=== PATIENT | male | born 1955 | race American Indian/Alaskan Native ===

== ENCOUNTER 2017-10-29 20:41 | Inpatient (IN) | payer OTHER ==
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
[2017-10-29] MEDS ORDERED: ZOFRAN IV ONE (21:53)
[2017-10-29 21:57] LABS: Bacteria,Urine 2+ /HPF (Negative); Bilirubin,Urine NEG (Negative); Blood,Urine NEG (Negative); Color,Urine Amber (Yellow); Mucus,Urine 1+ /HPF; Nitrite,Urine NEG (Negative)
[2017-10-29 22:06] LABS: Alanine Aminotransferase 18 units/L (7-56); Albumin 3.8 g/dL (3.9-5); BUN/Creatinine Ratio 29; Blood Urea Nitrogen 29 mg/dL (9-20); Calcium 9.8 mg/dL (8.4-10.2); Hemolysis Index 30
[2017-10-29 22:09] LABS: Hematocrit 42.2 % (35.5-45.6); Hemoglobin 13.9 gm/dl (11.8-15.2); Mean Corpuscular HGB Conc 33 % (32-34); Mean Corpuscular Hemoglobin 33 pg (28-32); Mean Corpuscular Volume 100 fl (84-94); Red Blood Count 4.23 M/mm3 (3.65-5.03); Red Cell Distribution Width 13.8 % (13.2-15.2)
[2017-10-29 22:14] LABS: Platelet Count 335 K/mm3 (140-440)
[2017-10-29 22:31] LABS: Free T4 (Free Thyroxine) 0.7 ng/dL (0.76-1.46)
[2017-10-29] MEDS ORDERED: LEVAQUIN 500MG/100ML 500 MG/100 ML BAG IV ONE (22:44)
[2017-10-29 22:46] LABS: Basophils % (Manual) 0 % (0.0-1.8); Myelocytes # (Manual) 0.2 K/mm3; Total Cells Counted 100
[2017-10-29 22:47] LABS: Anisocytosis 1+; Large Platelets Few; Platelet Estimate Consistent w Auto; Poikilocytosis 1+
--- NOTE | 2017-10-30 02:01 | Cat Scan Report ---
FINAL REPORT EXAM: CT ABDOMEN PELVIS W CON HISTORY: abdominal distention, nausea vomiting COMPARISON: Plain films of the abdomen from July 2015. TECHNIQUE: Contiguous axial images were obtained. Additional sagittal and coronal reformatted images were obtained. Administration of IV contrast given per institution protocol. Images submitted for interpretation. 100 cc Omnipaque 350. FINDINGS: Large amount of stool within the right colon and rectosigmoid colon. There is diffuse dilatation of the colon. Rectosigmoid colon measures 7 centimeters in diameter. Ascending colon measures 8.7 centimeters in diameter in the transverse colon 7 centimeters in diameter. No pneumatosis or free air. Mild wall thickening the rectosigmoid colon which may be reactive secondary to large amount of stool. Mild infectious or inflammatory colitis in that region is not excluded. Appears to be adherent stool along the margin of the lumen of the ascending colon (series 3, image 115). Polypoid mass not excluded by CT. Small-bowel loops are relatively decompressed. No pneumatosis or free air. Gastrostomy tube is in place. Balloon tip is present within the stomach lumen. Nonspecific linear densities at the lung bases concerning for atelectasis. Benign cyst left hepatic lobe measuring 1.1 centimeters. There additional low-attenuation subcentimeter lesions in the liver. These are too small to accurately characterize by CT, but may reflects cysts. Cholelithiasis. No gross inflammatory changes the gallbladder. Spleen is unremarkable. Calcification within the pancreatic head compatible sequelae of chronic pancreatitis. No peripancreatic stranding or fluid. No adrenal mass. No solid renal lesion or hydronephrosis. Bilobed left renal cyst measuring 6.3 x 3.2 centimeters in axial dimension. Aorta and IVC normal in caliber. Moderate severe calcified plaque along the aorta. Barnes catheter decompresses the urinary bladder. Diffuse wall thickening the urinary bladder which may be accentuated by decompressed state. Mild enlargement of prostate gland measuring 4.7 x 6.0 centimeters in axial dimension. No free fluid lymphadenopathy in the pelvic cavity. Appendix is not visualized. However, there is no pericecal stranding or fluid to suggest acute inflammation. Mild moderate degenerative changes of the lumbar spine. Bony pelvis is grossly intact. IMPRESSION: Diffuse distention of the colon. This is of uncertain chronicity. This may be on a chronic functional basis. Colonic ileus could have a similar appearance. No obstructive lesion identified along the course of the colon. There is a large amount of stool within sections of the colon. There is mild wall thickening the rectosigmoid colon which may be reactive secondary to large amount of stool in that region. Infectious or inflammatory colitis in that region is not excluded. No pneumatosis or free air. Changes of chronic pancreatitis with multiple parenchymal calcifications at the pancreatic head. No fat stranding or fluid to suggest acute inflammation of the pancreas on today's exam. Mild enlargement of prostate gland. Wall thickening the urinary bladder which may relate to its decompressed state. Correlation with urinalysis suggested to ensure no active cystitis.
[2017-10-30] MEDS ORDERED: ZOFRAN IV PRN (03:25)
[2017-10-30] MEDS ORDERED: TYLENOL PO PRN (03:25)
[2017-10-30] MEDS ORDERED: DepaCON 500 MG in NACL 0.9% 100 ML IV ONE (05:00)
[2017-10-30] MEDS ORDERED: VALPROIC ACID NGTUBE SCH (05:00)
--- NOTE | 2017-10-30 05:06 | History and Physical Report ---
History of Present Illness Date of examination: 10/30/17 Date of admission: 10/30/17 03:25 History of present illness: This is a 62-year-old man with history of hypothyroidism, diabetes, seizure, renal failure was discharged from the hospital on October 26. He returned today because his abdomen is more distended than it was when he was in the hospital. History is per the daughter at bedside, patient is unable to give a history. She also stated that he has not had a bowel movement since discharge In reviewing systems unobtainable. PAST MEDICAL HISTORY:hypothyroidism, diabetes, seizure, renal failure PAST SURGICAL HISTORY: None FAMILY HISTORY: Hypertension SOCIAL HISTORY: No alcohol, tobacco, drugs Medications and Allergies Allergies Allergy/AdvReac Type Severity Reaction Status Date / Time No Known Allergies Allergy Verified 10/18/17 18:55 Home Medications Medication Instructions Recorded Confirmed Last Taken Type Baclofen [Lioresal] 5 mg PO TID 10/18/17 10/18/17 Unknown History Levothyroxine [Synthroid] 200 mcg NGTUBE QAM 10/18/17 10/29/17 Unknown History Liothyronine Sodium [Cytomel] 5 mcg NGTUBE QAM 10/18/17 10/29/17 Unknown History OXcarbazepine [Trileptal] 900 mg NGTUBE BID 10/18/17 10/29/17 Unknown History Valproic Acid (As Sodium Salt) 20 ml NGTUBE Q12H 10/18/17 10/29/17 Unknown History [Depakene] amLODIPine [Norvasc] 10 mg NGTUBE DAILY 10/18/17 10/29/17 Unknown History levETIRAcetam [Keppra TAB] 1,000 mg NGTUBE BID 10/18/17 10/29/17 Unknown History Insulin Aspart [Novolog Flexpen] See Protocol SQ Q6H 30 Days 10/26/17 Unknown Rx insuln.pen Insulin NPH/Regular [Novolin 70/30] 18 unit SQ BIDDIAB 30 Days ml 10/26/1702/08 Unknown Rx hydrALAZINE [Apresoline TAB] 25 mg PO Q8HR #90 tablet 10/26/17 10/29/17 Unknown Rx Active Meds: Active Medications Acetaminophen (Tylenol) 650 mg PO Q4H PRN PRN Reason: Pain MILD(1-3)/Fever >100.5/MARQUEZ Levetiracetam (Keppra 1,000 Mg/Ns 0.75% 100ml) 1,000 mg in 100 mls @ 400 mls/ hr IV Q12HR [facility] Levothyroxine Sodium (Synthroid) 200 mcg FEEDTUBE DAILY@0600 [facility] Miscellaneous Medication (Valproic Acid (As Sodium Salt) [Depakene]) 20 ml NGTUBE Q12H [facility] Ondansetron HCl (Zofran) 4 mg IV Q8H PRN PRN Reason: N/V unrelieved by Reglan Oxcarbazepine (Trileptal) 900 mg PO BID PRISCA Exam - Physical Exam Narrative exam: Gen. appearance: Patient lying in bed in no acute distress HEENT: Normocephalic/atraumatic, pupils equal round reactive to light, extra occular movement intact, no scleral icterus, no JVD or thyromegaly or nodule, neck is supple, mucous membrane moist, no erythema or exudate Heart: S1-S2, regular rate and rhythm Lungs: Clear to auscultation bilateral breathing comfortable Abdomen: Significant decrease bowel sounds, nontender, +distended Extremities: No edema, cyanosis, clubbing Neuro:: Difficult to assess Skin: No rash, nodules, warm dry - Constitutional Vitals: Temp Pulse Resp BP Pulse Ox 98.6 F 106 H 22 138/87 97 10/29/17 21:07 10/30/17 04:30 10/30/17 04:30 10/30/17 04:30 10/30/17 04:30 Results - Labs CBC & Chem 7: 10/29/17 21:25 10/29/17 21:25 Labs: Abnormal lab results 10/29/17 10/29/17 10/29/17 Range/Units 21:25 21:25 21:25 MCV 100 H (84-94) fl MCH 33 H (28-32) pg Seg Neuts % (Manual) 74.0 H (40.0-70.0) % Lymphocytes % (Manual) 9.0 L (13.4-35.0) % Monocytes % (Manual) 12.0 H (0.0-7.3) % Lymphocytes # (Manual) 0.8 L (1.2-5.4) K/mm3 Monocytes # (Manual) 1.0 H (0.0-0.8) K/mm3 Sodium 134 L (137-145) mmol/L Chloride 92.5 L (98-107) mmol/L BUN 29 H (9-20) mg/dL Glucose 329 H (75-100) mg/dL Alkaline Phosphatase 143 H (35-129) units/L Albumin 3.8 L (3.9-5) g/dL TSH (0.270-4.200) mlU/mL Free T4 (0.76-1.46) ng/dL Ur Specific [place] (1.003-1.030) Urine WBC (Auto) (0.0-6.0) /HPF Valproic Acid 47.7 L (50-100) ug/mL 10/29/17 10/29/17 Range/Units 21:25 21:28 MCV (84-94) fl MCH (28-32) pg Seg Neuts % (Manual) (40.0-70.0) % Lymphocytes % (Manual) (13.4-35.0) % Monocytes % (Manual) (0.0-7.3) % Lymphocytes # (Manual) (1.2-5.4) K/mm3 Monocytes # (Manual) (0.0-0.8) K/mm3 Sodium (137-145) mmol/L Chloride (98-107) mmol/L BUN (9-20) mg/dL Glucose (75-100) mg/dL Alkaline Phosphatase (35-129) units/L Albumin (3.9-5) g/dL TSH 41.620 H (0.270-4.200) mlU/mL Free T4 0.70 L (0.76-1.46) ng/dL Ur Specific [place] 1.031 H (1.003-1.030) Urine WBC (Auto) 38.0 H (0.0-6.0) /HPF Valproic Acid (50-100) ug/mL - Imaging and Cardiology CT scan - abdomen: report reviewed CT scan - pelvis: report reviewed Assessment and Plan Assessment Profound Colonic distention Rectosigmoid inflammation Diabetes type 2 Seizure Hypothyroidism Plan admit to medicine Place NG tube, consult surgery Start IV fluids, IV Flagyl and Levaquin Check fingersticks and initiate insulin sliding scale Continue appropriate outpatient medication DVT prophylaxis
[2017-10-30] MEDS ORDERED: FLAGYL 500 MG/100 ML 500 MG/100 ML BAG IV ONE (05:16)
[2017-10-30] MEDS: FLAGYL 500 MG/100 ML 500 MG/100 ML BAG IV SCH ×3 (05:26→21:09)
[2017-10-30] MEDS: SYNTHROID FEEDTUBE SCH (05:56)
[2017-10-30] MEDS: TRILEPTAL PO SCH ×2 (10:00→21:16)
[2017-10-30] MEDS ORDERED: LEVOTHYROXINE 200 MCG NGTUBE SCH (10:00)
[2017-10-30] MEDS: KEPPRA 1,000 MG/NS 0.75% 100ML 1,000 MG/100 ML BAG IV SCH ×2 (10:03→21:09)
[2017-10-30] MEDS: DepaKENE Liq FEEDTUBE SCH ×2 (10:03→21:15)
[2017-10-30] MEDS: LEVAQUIN 750MG/150ML 750 MG/150 ML BAG IV SCH (10:58)
--- NOTE | 2017-10-30 11:16 | Progress Note ---
Assessment and Plan Assessment and plan: Colon distention/rectosigmoid inflammation. Surgical and GI consultation. Continue IV fluid hydration and NG tube. Continue empiric antibiotics of Flagyl and Levaquin. Diabetes mellitus type 2. Continue Accu-Cheks and sliding scale insulin. Seizure disorder. Continue medications. Changed Keppra to IV given the nothing by mouth status Hypertension. Change the hydralazine to IV. Given the nothing by mouth status Hypothyroidism. TSH is 41.6. History Interval history: Patient is somnolent. Hospitalist Physical - Constitutional Vitals: Temp Pulse Resp BP Pulse Ox 97.6 F 104 H 22 176/92 95 10/30/17 08:00 10/30/17 08:35 10/30/17 07:20 10/30/17 07:20 10/30/17 08:35 General appearance: Present: no acute distress, well-nourished - EENT Eyes: Present: PERRL, EOM intact ENT: hearing intact, clear oral mucosa, dentition normal - Neck Neck: Present: supple, normal ROM - Respiratory Respiratory effort: normal Respiratory: bilateral: CTA - Cardiovascular Rhythm: regular Heart Sounds: Present: S1 & S2. Absent: gallop, rub - Extremities Extremities: no ischemia, No edema, Full ROM - Abdominal General gastrointestinal: soft, non-tender, distended, normal bowel sounds - Integumentary Integumentary: Present: clear, warm, dry - Neurologic Neurologic: CNII-XII intact, moves all extremities Results - Labs CBC & Chem 7: 10/29/17 21:25 10/29/17 21:25 Labs: Laboratory Last Values WBC 8.7 K/mm3 (4.5-11.0) 10/29/17 21:25 RBC 4.23 M/mm3 (3.65-5.03) 10/29/17 21:25 Hgb 13.9 gm/dl (11.8-15.2) 10/29/17 21:25 Hct 42.2 % (35.5-45.6) 10/29/17 21:25 MCV 100 fl (84-94) H 10/29/17 21:25 MCH 33 pg (28-32) H 10/29/17 21:25 MCHC 33 % (32-34) 10/29/17 21:25 RDW 13.8 % (13.2-15.2) 10/29/17 21:25 Plt Count 335 K/mm3 (140-440) 10/29/17 21:25 [place] % (Auto) Principal Electrical Engineer 10/29/17 21:25 Add Manual Diff Complete 10/29/17 21:25 Total Counted 100 10/29/17 21:25 Seg Neuts % (Manual) 74.0 % (40.0-70.0) H 10/29/17 21:25 Band Neutrophils % 0 % 10/29/17 21:25 Lymphocytes % (Manual) 9.0 % (13.4-35.0) L 10/29/17 21:25 Reactive Lymphs % (Man) 0 % 10/29/17 21:25 Monocytes % (Manual) 12.0 % (0.0-7.3) H 10/29/17 21:25 Eosinophils % (Manual) 3.0 % (0.0-4.3) 10/29/17 21:25 Basophils % (Manual) 0 % (0.0-1.8) 10/29/17 21:25 Metamyelocytes % 0 % 10/29/17 21:25 Myelocytes % 2.0 % 10/29/17 21:25 Promyelocytes % 0 % 10/29/17 21:25 Blast Cells % 0 % 10/29/17 21:25 Nucleated RBC % Not Reportable 10/29/17 21:25 Seg Neutrophils # Man 6.4 K/mm3 (1.8-7.7) 10/29/17 21:25 Band Neutrophils # 0.0 K/mm3 10/29/17 21:25 Lymphocytes # (Manual) 0.8 K/mm3 (1.2-5.4) L 10/29/17 21:25 Abs React Lymphs (Man) 0.0 K/mm3 10/29/17 21:25 Monocytes # (Manual) 1.0 K/mm3 (0.0-0.8) H 10/29/17 21:25 Eosinophils # (Manual) 0.3 K/mm3 (0.0-0.4) 10/29/17 21:25 Basophils # (Manual) 0.0 K/mm3 (0.0-0.1) 10/29/17 21:25 Metamyelocytes # 0.0 K/mm3 10/29/17 21:25 Myelocytes # 0.2 K/mm3 10/29/17 21:25 Promyelocytes # 0.0 K/mm3 10/29/17 21:25 Blast Cells # 0.0 K/mm3 10/29/17 21:25 WBC Morphology Not Reportable 10/29/17 21:25 Hypersegmented Neuts Not Reportable 10/29/17 21:25 Hyposegmented Neuts Not Reportable 10/29/17 21:25 Hypogranular Neuts Not Reportable 10/29/17 21:25 Smudge Cells Not Reportable 10/29/17 21:25 Toxic Granulation Not Reportable 10/29/17 21:25 Toxic Vacuolation Not Reportable 10/29/17 21:25 Dohle Bodies Not Reportable 10/29/17 21:25 Pelger-Huet Anomaly Not Reportable 10/29/17 21:25 Kaitlyn Rods Not Reportable 10/29/17 21:25 Platelet Estimate Consistent w auto 10/29/17 21:25 Clumped Platelets Not Reportable 10/29/17 21:25 Plt Clumps, EDTA Not Reportable 10/29/17 21:25 Large Platelets Few 10/29/17 21:25 Giant Platelets Not Reportable 10/29/17 21:25 Platelet Satelliting Not Reportable 10/29/17 21:25 Plt Morphology Comment Not Reportable 10/29/17 21:25 RBC Morphology Not Reportable 10/29/17 21:25 Dimorphic RBCs Not Reportable 10/29/17 21:25 Polychromasia Not Reportable 10/29/17 21:25 Hypochromasia Not Reportable 10/29/17 21:25 Poikilocytosis 1+ 10/29/17 21:25 Anisocytosis 1+ 10/29/17 21:25 Microcytosis Not Reportable 10/29/17 21:25 Macrocytosis Not Reportable 10/29/17 21:25 Spherocytes Not Reportable 10/29/17 21:25 Pappenheimer Bodies Not Reportable 10/29/17 21:25 Sickle Cells Not Reportable 10/29/17 21:25 Target Cells Not Reportable 10/29/17 21:25 Tear Drop Cells Not Reportable 10/29/17 21:25 Ovalocytes Not Reportable 10/29/17 21:25 Helmet Cells Not Reportable 10/29/17 21:25 [place] Bodies Not Reportable 10/29/17 21:25 [place] Rings Not Reportable 10/29/17 21:25 Am[place]on Cells Not Reportable 10/29/17 21:25 Bite Cells Not Reportable 10/29/17 21:25 Crenated Cell Not Reportable 10/29/17 21:25 Elliptocytes Not Reportable 10/29/17 21:25 Acanthocytes (Spur) Not Reportable 10/29/17 21:25 Rouleaux Not Reportable 10/29/17 21:25 Hemoglobin C Crystals Not Reportable 10/29/17 21:25 Schistocytes Not Reportable 10/29/17 21:25 Malaria parasites Not Reportable 10/29/17 21:25 Dionisio Bodies Not Reportable 10/29/17 21:25 Hem Pathologist Commnt No 10/29/17 21:25 Sodium 134 mmol/L (137-145) L 10/29/17 21:25 Potassium 4.9 mmol/L (3.6-5.0) 10/29/17 21:25 Chloride 92.5 mmol/L (98-107) L 10/29/17 21:25 Carbon Dioxide 22 mmol/L (22-30) 10/29/17 21:25 Anion Gap 24 mmol/L 10/29/17 21:25 BUN 29 mg/dL (9-20) H 10/29/17 21:25 Creatinine 1.0 mg/dL (0.8-1.5) 10/29/17 21:25 Estimated GFR > 60 ml/min 10/29/17 21:25 BUN/Creatinine Ratio 29 % 10/29/17 21:25 Glucose 329 mg/dL (75-100) H 10/29/17 21:25 POC Glucose 313 (70-105) H 10/30/17 08:44 Calcium 9.8 mg/dL (8.4-10.2) 10/29/17 21:25 Total Bilirubin 0.20 mg/dL (0.1-1.2) 10/29/17 21:25 AST 18 units/L (5-40) 10/29/17 21:25 ALT 18 units/L (7-56) 10/29/17 21:25 Alkaline Phosphatase 143 units/L (35-129) H 10/29/17 21:25 Total Protein 6.4 g/dL (6.3-8.2) 10/29/17: Albumin 3.8 g/dL (3.9-5) L 10/29/17 Albumin/Globulin Ratio 1.5 % 10/29/17: Lipase 17 units/L (13-60) 10/29/17: TSH 41.620 mlU/mL (0.270-4.200) H 10/29/17 Free T4 0.70 ng/dL (0.76-1.46) L 10/29/17: Urine Color [place] (Yellow) 10/29/17 Urine Turbidity Clear (Clear) 10/29/17 Urine pH 5.0 (5.0-7.0) 10/29/17 Ur Specific [place] 1.031 (1.003-1.030) H 10/29/17: Urine Protein 100 mg/dl mg/dL (Negative) 10/29/17 Urine Glucose (UA) >=500 mg/dL (Negative) 10/29/17 Urine Ketones Tr mg/dL (Negative) 10/29/17 Urine Blood Neg (Negative) 10/29/17: Urine Nitrite Neg (Negative) 10/29/17 Urine Bilirubin Neg (Negative) 10/29/17 Urine Urobilinogen 2.0 mg/dL (<2.0) 10/29/17: Ur Leukocyte Esterase Mod (Negative) 10/29/17 Urine WBC (Auto) 38.0 /HPF (0.0-6.0) H 10/29/17: Urine RBC (Auto) 79.0 /HPF (0.0-6.0) 10/29/17: U Epithel Cells (Auto) 1.0 /HPF (0-13.0) 10/29/17 Urine Bacteria (Auto) 2+ /HPF (Negative) 10/29/17 Urine Mucus 1+ /HPF 10/29/17 Valproic Acid 47.7 ug/mL (50-100) L 10/29/17
--- NOTE | 2017-10-30 15:11 | Consultation ---
History of Present Illness Consult date: 10/30/17 Reason for consult: other (colonic distention) Requesting physician: DANI RODRIGUEZ Chief complaint: Abdominal distention - History of present illness History of present illness: 62yo M with multiple medical problems and inability to communicate effectively was brought by his daughter due to abdominal distention. Pt found to have colonic distention on CT. Surgery consulted. Pt unable to give any history. Past History Past Medical History: diabetes, hypertension, hypothyroidism, seizures Past Surgical History: Other (PEG placement) Social history: denies: smoking, alcohol abuse, IV drug use Family history: no significant family history Medications and Allergies Allergies Allergy/AdvReac Type Severity Reaction Status Date / Time No Known Allergies Allergy Verified 10/18/17 18:55 Home Medications Medication Instructions Recorded Confirmed Last Taken Type Baclofen [Lioresal] 5 mg PO TID 10/18/17 10/30/17 Unknown History Levothyroxine [Synthroid] 200 mcg NGTUBE QAM 10/18/17 10/30/17 Unknown History Liothyronine Sodium [Cytomel] 5 mcg NGTUBE QAM 10/18/17 10/30/17 Unknown History OXcarbazepine [Trileptal] 900 mg NGTUBE BID 10/18/17 10/30/17 Unknown History Valproic Acid (As Sodium Salt) 20 ml NGTUBE Q12H 10/18/17 10/30/17 Unknown History [Depakene] amLODIPine [Norvasc] 10 mg NGTUBE DAILY 10/18/17 10/30/17 Unknown History levETIRAcetam [Keppra TAB] 1,000 mg NGTUBE BID 10/18/17 10/30/17 Unknown History Insulin Aspart [Novolog Flexpen] See Protocol SQ Q6H 30 Days 10/26/17 10/30/17 Unknown Rx insuln.pen Insulin NPH/Regular [Novolin 70/30] 18 unit SQ BIDDIAB 30 Days ml 10/26/1703/11 Unknown Rx hydrALAZINE [Apresoline TAB] 25 mg PO Q8HR #90 tablet 10/26/17 10/30/17 Unknown Rx Active Meds: Active Medications Acetaminophen (Tylenol) 650 mg PO Q4H PRN PRN Reason: Pain MILD(1-3)/Fever >100.5/MARQUEZ Hydralazine HCl (Apresoline) 20 mg IV Q4HR PRN PRN Reason: Blood Pressure Levetiracetam (Keppra 1,000 Mg/Ns 0.75% 100ml) 1,000 mg in 100 mls @ 400 mls/ hr IV Q12HR [facility] Levofloxacin/Dextrose (Levaquin 750mg/150ml) 750 mg in 150 mls @ 100 mls/hr IV Q24HR [facility] PRN Reason: Protocol Metronidazole (Flagyl 500 Mg/100 Ml) 500 mg in 100 mls @ 200 mls/hr IV Q8HR [facility] Last Admin: 10/30/17 05:26 Dose: 200 mls/hr Levothyroxine Sodium (Synthroid) 200 mcg FEEDTUBE DAILY@0600 [facility] Last Admin: 10/30/17 05:56 Dose: Not Given Ondansetron HCl (Zofran) 4 mg IV Q8H PRN PRN Reason: N/V unrelieved by Reglan Oxcarbazepine (Trileptal) 900 mg PO BID [facility] Valproic Acid (Depakene Liq) 1,000 mg FEEDTUBE Q12HR [facility] Review of Systems ROS unobtainable: due to mental status Exam Vital Signs Pulse Resp Pulse Ox 105 H 24 95 10/29/17 20:50 10/29/17 20:50 10/29/17 20:50 Narrative exam: Minimally responsive. Appears to grunt to questions - General physical appearance Positive: no distress, no pain - Respiratory Positive: normal expansion, normal respiratory effort - Cardiovascular Rhythm: regular - Abdomen Abdomen: Present: soft, bowel sounds normal, distended, other (PEG in place, but capped). Absent: tender, guarding, rigid, surgical scars - Integumentary no rash Results - Labs 10/29/17 21:25 10/29/17 21:25 Abnormal lab results 10/29/17 10/29/17 10/29/17 Range/Units 21:25 21:25 21:25 MCV 100 H (84-94) fl MCH 33 H (28-32) pg Seg Neuts % (Manual) 74.0 H (40.0-70.0) % Lymphocytes % (Manual) 9.0 L (13.4-35.0) % Monocytes % (Manual) 12.0 H (0.0-7.3) % Lymphocytes # (Manual) 0.8 L (1.2-5.4) K/mm3 Monocytes # (Manual) 1.0 H (0.0-0.8) K/mm3 Sodium 134 L (137-145) mmol/L Chloride 92.5 L (98-107) mmol/L BUN 29 H (9-20) mg/dL Glucose 329 H (75-100) mg/dL POC Glucose (70-105) Alkaline Phosphatase 143 H (35-129) units/L Albumin 3.8 L (3.9-5) g/dL TSH (0.270-4.200) mlU/mL Free T4 (0.76-1.46) ng/dL Ur Specific [place] (1.003-1.030) Urine WBC (Auto) (0.0-6.0) /HPF Valproic Acid 47.7 L (50-100) ug/mL 10/29/17 10/29/17 10/30/17 Range/Units 21:25 21:28 08:44 MCV (84-94) fl MCH (28-32) pg Seg Neuts % (Manual) (40.0-70.0) % Lymphocytes % (Manual) (13.4-35.0) % Monocytes % (Manual) (0.0-7.3) % Lymphocytes # (Manual) (1.2-5.4) K/mm3 Monocytes # (Manual) (0.0-0.8) K/mm3 Sodium (137-145) mmol/L Chloride (98-107) mmol/L BUN (9-20) mg/dL Glucose (75-100) mg/dL POC Glucose 313 H (70-105) Alkaline Phosphatase (35-129) units/L Albumin (3.9-5) g/dL TSH 41.620 H (0.270-4.200) mlU/mL Free T4 0.70 L (0.76-1.46) ng/dL Ur Specific [place] 1.031 H (1.003-1.030) Urine WBC (Auto) 38.0 H (0.0-6.0) /HPF Valproic Acid (50-100) ug/mL 10/30/17 Range/Units 12:15 MCV (84-94) fl MCH (28-32) pg Seg Neuts % (Manual) (40.0-70.0) % Lymphocytes % (Manual) (13.4-35.0) % Monocytes % (Manual) (0.0-7.3) % Lymphocytes # (Manual) (1.2-5.4) K/mm3 Monocytes # (Manual) (0.0-0.8) K/mm3 Sodium (137-145) mmol/L Chloride (98-107) mmol/L BUN (9-20) mg/dL Glucose (75-100) mg/dL POC Glucose 274 H (70-105) Alkaline Phosphatase (35-129) units/L Albumin (3.9-5) g/dL TSH (0.270-4.200) mlU/mL Free T4 (0.76-1.46) ng/dL Ur Specific [place] (1.003-1.030) Urine WBC (Auto) (0.0-6.0) /HPF Valproic Acid (50-100) ug/mL Diabetes panel 10/29/17 Range/Units 21:25 Sodium 134 L (137-145) mmol/L Potassium 4.9 (3.6-5.0) mmol/L Chloride 92.5 L (98-107) mmol/L Carbon Dioxide 22 (22-30) mmol/L BUN 29 H (9-20) mg/dL Creatinine 1.0 (0.8-1.5) mg/dL Glucose 329 H (75-100) mg/dL Calcium 9.8 (8.4-10.2) mg/dL AST 18 (5-40) units/L ALT 18 (7-56) units/L Alkaline Phosphatase 143 H (35-129) units/L Total Protein 6.4 (6.3-8.2) g/dL Albumin 3.8 L (3.9-5) g/dL Thyroid panel 10/29/17 Range/Units 21:25 TSH 41.620 H (0.270-4.200) mlU/mL Calcium panel 10/29/17 Range/Units 21:25 Calcium 9.8 (8.4-10.2) mg/dL Albumin 3.8 L (3.9-5) g/dL Pituitary panel 10/29/17 10/29/17 Range/Units 21:25 21:25 Sodium 134 L (137-145) mmol/L Potassium 4.9 (3.6-5.0) mmol/L Chloride 92.5 L (98-107) mmol/L Carbon Dioxide 22 (22-30) mmol/L BUN 29 H (9-20) mg/dL Creatinine 1.0 (0.8-1.5) mg/dL Glucose 329 H (75-100) mg/dL Calcium 9.8 (8.4-10.2) mg/dL TSH 41.620 H (0.270-4.200) mlU/mL Adrenal panel 10/29/17 Range/Units 21:25 Sodium 134 L (137-145) mmol/L Potassium 4.9 (3.6-5.0) mmol/L Chloride 92.5 L (98-107) mmol/L Carbon Dioxide 22 (22-30) mmol/L BUN 29 H (9-20) mg/dL Creatinine 1.0 (0.8-1.5) mg/dL Glucose 329 H (75-100) mg/dL Calcium 9.8 (8.4-10.2) mg/dL Total Bilirubin 0.20 (0.1-1.2) mg/dL AST 18 (5-40) units/L ALT 18 (7-56) units/L Alkaline Phosphatase 143 H (35-129) units/L Total Protein 6.4 (6.3-8.2) g/dL Albumin 3.8 L (3.9-5) g/dL - Imaging Abdominal x-ray: report reviewed, image reviewed (from 2015 and 2014) CT scan - abdomen: report reviewed, image reviewed Assessment and Plan - Patient Problems (1) Colon distention Current Visit: Yes Status: Acute Plan to address problem: Patient does not show signs suggestive of acute process requiring surgical intervention. Pt is dehydrated as well as being low in thyroid hormone which can contribute to this problem. In looking back at his records, this has been a chronic problem for him. There are multiple abdominal x-rays showing colonic distention. Would treat conservatively for now. 1) Consider removal of NGT and using PEG for suction. 2) rehydrate 3) Give thyroid hormone replacement. 4) Can try enemas to relieve some of the pressure 5) Once hydrated, if stool no improvement in colonic distention, can try IM Neostigmine 2.5mg. No need for invasive monitoring if given IM. 6) C-scope decompression may be an option, would defer to GI. 7) Would consider d/c of Abx. 8) Minimize or avoid anticholinergic drugs. Thank you for this consult. Will follow along. Time=60min
--- NOTE | 2017-10-30 15:16 | Consultation ---
History of Present Illness - Reason for Consult Consult date: 10/30/17 - History of Present Illness See Dictated consult note. Medications and Allergies Allergies Allergy/AdvReac Type Severity Reaction Status Date / Time No Known Allergies Allergy Verified 10/18/17 18:55 Home Medications Medication Instructions Recorded Confirmed Last Taken Type Baclofen [Lioresal] 5 mg PO TID 10/18/17 10/30/17 Unknown History Levothyroxine [Synthroid] 200 mcg NGTUBE QAM 10/18/17 10/30/17 Unknown History Liothyronine Sodium [Cytomel] 5 mcg NGTUBE QAM 10/18/17 10/30/17 Unknown History OXcarbazepine [Trileptal] 900 mg NGTUBE BID 10/18/17 10/30/17 Unknown History Valproic Acid (As Sodium Salt) 20 ml NGTUBE Q12H 10/18/17 10/30/17 Unknown History [Depakene] amLODIPine [Norvasc] 10 mg NGTUBE DAILY 10/18/17 10/30/17 Unknown History levETIRAcetam [Keppra TAB] 1,000 mg NGTUBE BID 10/18/17 10/30/17 Unknown History Insulin Aspart [Novolog Flexpen] See Protocol SQ Q6H 30 Days 10/26/17 10/30/17 Unknown Rx insuln.pen Insulin NPH/Regular [Novolin 70/30] 18 unit SQ BIDDIAB 30 Days ml 10/26/1703/11 Unknown Rx hydrALAZINE [Apresoline TAB] 25 mg PO Q8HR #90 tablet 10/26/17 10/30/17 Unknown Rx Active Meds: Active Medications Acetaminophen (Tylenol) 650 mg PO Q4H PRN PRN Reason: Pain MILD(1-3)/Fever >100.5/MARQUEZ Hydralazine HCl (Apresoline) 20 mg IV Q4HR PRN PRN Reason: Blood Pressure Levetiracetam (Keppra 1,000 Mg/Ns 0.75% 100ml) 1,000 mg in 100 mls @ 400 mls/ hr IV Q12HR [facility] Levofloxacin/Dextrose (Levaquin 750mg/150ml) 750 mg in 150 mls @ 100 mls/hr IV Q24HR [facility] PRN Reason: Protocol Metronidazole (Flagyl 500 Mg/100 Ml) 500 mg in 100 mls @ 200 mls/hr IV Q8HR [facility] Last Admin: 10/30/17 05:26 Dose: 200 mls/hr Levothyroxine Sodium (Synthroid) 200 mcg FEEDTUBE DAILY@0600 [facility] Last Admin: 10/30/17 05:56 Dose: Not Given Ondansetron HCl (Zofran) 4 mg IV Q8H PRN PRN Reason: N/V unrelieved by Reglan Oxcarbazepine (Trileptal) 900 mg PO BID [facility] Valproic Acid (Depakene Liq) 1,000 mg FEEDTUBE Q12HR [facility] Exam - Constitutional Vitals: Temp Pulse Resp BP Pulse Ox 97.6 F 104 H 22 176/92 95 10/30/17 08:00 10/30/17 08:35 10/30/17 07:20 10/30/17 07:20 10/30/17 08:35 Results - Labs CBC & Chem 7: 10/29/17 21:25 10/29/17 21:25 Labs: Abnormal lab results 10/29/17 10/29/17 10/29/17 Range/Units 21:25 21:25 21:25 MCV 100 H (84-94) fl MCH 33 H (28-32) pg Seg Neuts % (Manual) 74.0 H (40.0-70.0) % Lymphocytes % (Manual) 9.0 L (13.4-35.0) % Monocytes % (Manual) 12.0 H (0.0-7.3) % Lymphocytes # (Manual) 0.8 L (1.2-5.4) K/mm3 Monocytes # (Manual) 1.0 H (0.0-0.8) K/mm3 Sodium 134 L (137-145) mmol/L Chloride 92.5 L (98-107) mmol/L BUN 29 H (9-20) mg/dL Glucose 329 H (75-100) mg/dL POC Glucose (70-105) Alkaline Phosphatase 143 H (35-129) units/L Albumin 3.8 L (3.9-5) g/dL TSH (0.270-4.200) mlU/mL Free T4 (0.76-1.46) ng/dL Ur Specific [place] (1.003-1.030) Urine WBC (Auto) (0.0-6.0) /HPF Valproic Acid 47.7 L (50-100) ug/mL 10/29/17 10/29/17 10/30/17 Range/Units 21:25 21:28 08:44 MCV (84-94) fl MCH (28-32) pg Seg Neuts % (Manual) (40.0-70.0) % Lymphocytes % (Manual) (13.4-35.0) % Monocytes % (Manual) (0.0-7.3) % Lymphocytes # (Manual) (1.2-5.4) K/mm3 Monocytes # (Manual) (0.0-0.8) K/mm3 Sodium (137-145) mmol/L Chloride (98-107) mmol/L BUN (9-20) mg/dL Glucose (75-100) mg/dL POC Glucose 313 H (70-105) Alkaline Phosphatase (35-129) units/L Albumin (3.9-5) g/dL TSH 41.620 H (0.270-4.200) mlU/mL Free T4 0.70 L (0.76-1.46) ng/dL Ur Specific [place] 1.031 H (1.003-1.030) Urine WBC (Auto) 38.0 H (0.0-6.0) /HPF Valproic Acid (50-100) ug/mL 10/30/17 Range/Units 12:15 MCV (84-94) fl MCH (28-32) pg Seg Neuts % (Manual) (40.0-70.0) % Lymphocytes % (Manual) (13.4-35.0) % Monocytes % (Manual) (0.0-7.3) % Lymphocytes # (Manual) (1.2-5.4) K/mm3 Monocytes # (Manual) (0.0-0.8) K/mm3 Sodium (137-145) mmol/L Chloride (98-107) mmol/L BUN (9-20) mg/dL Glucose (75-100) mg/dL POC Glucose 274 H (70-105) Alkaline Phosphatase (35-129) units/L Albumin (3.9-5) g/dL TSH (0.270-4.200) mlU/mL Free T4 (0.76-1.46) ng/dL Ur Specific [place] (1.003-1.030) Urine WBC (Auto) (0.0-6.0) /HPF Valproic Acid (50-100) ug/mL Assessment and Plan Abd distention - diffuse colonic distention per CT report. Pt appears markedly hypothyroid by labs. Ileus or Ralf's vs constipation. - correct thyroid and lytes - rectal tube and Dulcolax - KUB in AM - then, possibly Gastrograffin enema vs Neostigmine trial
[2017-10-30] MEDS: DULCOLAX PR SCH (19:01)
[2017-10-30] MEDS ORDERED: KEPPRA 1,000 MG in NACL 0.9% 100 ML IV SCH (22:00)
--- NOTE | 2017-10-31 01:14 | Consultation ---
REFERRING PHYSICIAN: Shala Connors M.D. REASON FOR CONSULTATION: Abdominal distention. HISTORY OF PRESENT ILLNESS: The patient is a 62-year-old man with multiple medical problems including epilepsy and history of cerebral infarcts and metabolic encephalopathy. He was hospitalized from 10/18/2017 through 10/24/2017 and he was not following commands at the time of discharge. He was brought back to the Emergency Room due to progressive abdominal distention. Apparently, this has been going on for 4 days, based on history. There is no family at the bedside and the patient is nonverbal. CT performed on abdomen shows diffuse colonic distention. Stool was noted scattered throughout the colon as well. There was no evidence of inflammation. It also showed chronic calcific pancreatitis. Maximum diameter of the colon was 8.7 cm. I do not have any older x-rays from the prior admission for comparison and no report noted in the chart regarding problems with abdominal distention. Also, there are no fevers, chills, sweats reported. The patient is mildly tachycardic. EMS report said he did have some vomiting, but this has not been documented here. An NG tube was placed in the Emergency Room, which is having bilious output. MEDICATIONS: He is on Keppra, Apresoline, amlodipine, valproic acid, Trileptal, Cytomel, Synthroid, insulin, and baclofen. PAST MEDICAL HISTORY: He has a history of: 1. Multiple CVAs - Nonverbal. 2. History of seizures - In 2014 with intubation and PEG placement at that time. The patient has been unresponsive and bed bound ever since then. 3. Diabetes. 4. Hypothyroidism. 5. Hypertension. 6. History of G-tube placement - None present at this time and unsure when this was removed. FAMILY HISTORY: Unavailable. SOCIAL HISTORY: Unavailable. REVIEW OF SYSTEMS: Unobtainable. PHYSICAL EXAMINATION: GENERAL: This is a middle-aged appearing black male lying in bed who appears to look purposefully when called and grunts, but does not speak. VITAL SIGNS: Temperature is 97.6, pulse 104, blood pressure 176/92. HEENT: He is anicteric. Pupils are round and reactive. He has an NG tube in place. Oropharynx is clear. LUNGS: Clear bilaterally anteriorly. CARDIAC: Regular with no extra heart sounds. ABDOMEN: Distended, but good bowel sounds are noted. There is no guarding or obvious tenderness. RECTAL: Deferred. LABORATORY DATA: White count is 8.7, hemoglobin 13.9, hematocrit 42.2, MCV of 100, platelet count of 335,000. Sodium 134, potassium 4.9, chloride 92, bicarbonate 22, BUN 29, creatinine 1.0, glucose 329. AST is 18, ALT is 18, alkaline phosphatase is 143, total bilirubin is 0.2 and albumin is 3.8. TSH is markedly elevated at 41.6 with a free T4 of 0.7. IMAGING STUDIES: CT is as noted above. IMPRESSION: Abdominal distention - Due to colonic distention. The patient may well have an ileus based on the hypothyroidism and lack of mobility. He may well be developing an Ralf's type of a situation given his comorbidities. We will first try a rectal tube and stimulant laxatives. We may then consider either a gastrografin enema or a trial of neostigmine based on how he does clinically. Would also aggressively correct hypothyroidism and ensure that electrolytes are optimized. JOB# [id number] HRC/NTS
[2017-10-31] MEDS: SYNTHROID FEEDTUBE SCH (05:30)
[2017-10-31] MEDS: FLAGYL 500 MG/100 ML 500 MG/100 ML BAG IV SCH ×3 (05:30→21:36)
[2017-10-31 06:01] LABS: Hematocrit 37.5 % (35.5-45.6); Hemoglobin 12.2 gm/dl (11.8-15.2); Mean Corpuscular HGB Conc 33 % (32-34); Mean Corpuscular Hemoglobin 33 pg (28-32); Mean Corpuscular Volume 100 fl (84-94); Platelet Count 357 K/mm3 (140-440); Red Blood Count 3.75 M/mm3 (3.65-5.03); Red Cell Distribution Width 13.7 % (13.2-15.2)
[2017-10-31 06:18] LABS: BUN/Creatinine Ratio 27; Blood Urea Nitrogen 27 mg/dL (9-20); Calcium 9.4 mg/dL (8.4-10.2); Hemolysis Index 4
[2017-10-31 06:53] LABS: Band Neutrophils # (Manual) 0.2 K/mm3; Basophils % (Manual) 0 % (0.0-1.8); Platelet Estimate Consistent w Auto; Total Cells Counted 100
--- NOTE | 2017-10-31 08:19 | XRay Report ---
AP ABDOMEN History: Abdominal distention. Findings: Correlation is made with the CT abdomen pelvis performed yesterday. Diffuse gaseous distention of the colon is again noted. Moderate constipation. No small bowel or gastric dilatation is appreciated. A nasogastric tube has been inserted which terminates in the stomach. A PEG tube is also present in the epigastric region. No significant change is appreciated since the comparison CT. Impression: Diffuse gaseous distention of the colon and mild constipation. No significant change as described above.
[2017-10-31] MEDS: LEVAQUIN 750MG/150ML 750 MG/150 ML BAG IV SCH (09:30)
[2017-10-31] MEDS: KEPPRA 1,000 MG/NS 0.75% 100ML 1,000 MG/100 ML BAG IV SCH ×2 (09:59→21:36)
[2017-10-31] MEDS: TRILEPTAL PO SCH ×2 (10:00→21:36)
[2017-10-31] MEDS: DULCOLAX PR SCH (10:00)
[2017-10-31] MEDS: DepaKENE Liq FEEDTUBE SCH ×2 (10:01→21:36)
--- NOTE | 2017-10-31 11:10 | Progress Note ---
Assessment and Plan - Patient Problems (1) Colon distention Current Visit: Yes Status: Acute Plan to address problem: Patient does not show signs suggestive of acute process requiring surgical intervention. Need to monitor for signs of increased colonic distention which may force us to operate. In looking back at his records, this has been a chronic problem for him. There are multiple abdominal x-rays showing colonic distention that appears unchanged today. Would treat conservatively for now. 1) Consider removal of NGT and using PEG for suction. 2) rehydrate 3) Give thyroid hormone replacement. 4) Can try enemas to relieve some of the pressure 5) Once hydrated, if stool no improvement in colonic distention, can try IM Neostigmine 2.5mg. No need for invasive monitoring if given IM. 6) C-scope decompression may be an option, would defer to GI. 7) Would consider d/c of Abx. 8) Minimize or avoid anticholinergic drugs. Will follow along. Time=15min Subjective Date of service: 10/31/17 Patient Reports: Positive: other (no major events o/n per staff. Rectal tube placed with minimal output. ) Objective Vital Signs - 12hr 10/30/17 10/30/17 10/30/17 23:11 23:21 23:30 Temperature Pulse Rate 128 H 102 H 104 H Respiratory 22 19 20 Rate Blood Pressure 123/69 123/69 118/64 Blood Pressure [Right] O2 Sat by Pulse 97 96 98 Oximetry 10/30/17 10/30/17 10/31/17 23:41 23:51 00:00 Temperature Pulse Rate 134 H 114 H 119 H Respiratory 21 22 22 Rate Blood Pressure 118/64 118/64 122/65 Blood Pressure [Right] O2 Sat by Pulse 99 95 96 Oximetry 10/31/17 10/31/17 10/31/17 00:11 00:21 00:30 Temperature Pulse Rate 105 H 199 H 102 H Respiratory 23 22 Rate Blood Pressure 150/100 122/65 121/77 Blood Pressure [Right] O2 Sat by Pulse 94 94 99 Oximetry 10/31/17 10/31/17 10/31/17 00:41 00:51 01:00 Temperature 99.1 F Pulse Rate 105 H 121 H 104 H Respiratory 14 23 27 H Rate Blood Pressure 121/77 122/65 120/69 Blood Pressure 150/100 [Right] O2 Sat by Pulse 97 98 96 Oximetry 10/31/17 10/31/17 10/31/17 01:11 01:21 03:59 Temperature 99.2 F Pulse Rate 115 H 127 H 101 H Respiratory 19 14 22 Rate Blood Pressure 120/69 121/77 142/93 Blood Pressure [Right] O2 Sat by Pulse 95 93 95 Oximetry 10/31/17 10/31/17 10/31/17 04:34 04:35 07:53 Temperature 99.2 F 99.2 F 99.6 F Pulse Rate 100 H 100 H 95 H Respiratory 22 22 19 Rate Blood Pressure 139/84 Blood Pressure 142/93 142/93 [Right] O2 Sat by Pulse 94 94 93 Oximetry 10/31/17 08:28 Temperature 99.6 F Pulse Rate 93 H Respiratory 17 Rate Blood Pressure Blood Pressure 139/84 [Right] O2 Sat by Pulse 93 Oximetry - General physical appearance Narrative Exam: more awake today no distress, no pain - Respiratory normal expansion, normal respiratory effort - Abdomen soft, not tender (seems to indicate clearly that he does not have pain), bowel sounds normal, distended, not guarding, not rigid, other (clear fluid coming out of PEG tube. ) - Integumentary no rash - Labs 10/31/17 05:37 10/31/17 05:37 Diabetes panel 10/31/17 Range/Units 05:37 Sodium 137 (137-145) mmol/L Potassium 3.9 D (3.6-5.0) mmol/L Chloride 94.3 L (98-107) mmol/L Carbon Dioxide 26 (22-30) mmol/L BUN 27 H (9-20) mg/dL Creatinine 1.0 (0.8-1.5) mg/dL Glucose 253 H (75-100) mg/dL Calcium 9.4 (8.4-10.2) mg/dL Calcium panel 10/31/17 Range/Units 05:37 Calcium 9.4 (8.4-10.2) mg/dL Pituitary panel 10/31/17 Range/Units 05:37 Sodium 137 (137-145) mmol/L Potassium 3.9 D (3.6-5.0) mmol/L Chloride 94.3 L (98-107) mmol/L Carbon Dioxide 26 (22-30) mmol/L BUN 27 H (9-20) mg/dL Creatinine 1.0 (0.8-1.5) mg/dL Glucose 253 H (75-100) mg/dL Calcium 9.4 (8.4-10.2) mg/dL Adrenal panel 10/31/17 Range/Units 05:37 Sodium 137 (137-145) mmol/L Potassium 3.9 D (3.6-5.0) mmol/L Chloride 94.3 L (98-107) mmol/L Carbon Dioxide 26 (22-30) mmol/L BUN 27 H (9-20) mg/dL Creatinine 1.0 (0.8-1.5) mg/dL Glucose 253 H (75-100) mg/dL Calcium 9.4 (8.4-10.2) mg/dL
--- NOTE | 2017-10-31 11:30 | Gastroenterology Progress Note ---
<MONALISA KIRKRagini - Last Filed: 10/31/17 11:37> Assessment and Plan 1.Abd distention -CT showed diffuse colonic distention -KUB this am showed diffuse gaseous distention of the colon and mild constipation -etiology unclear- possible Ileus vs Ralf's vs constipation -no improvement in abd distention w/Dulcolax -no BMs overnight or this am per nursing (rectal tube with no output) -gastrograffin enema today -will consider Neostigmine trial vs colonic decompression pending results of gastrograffin enema -treatment of hypothyroid per primary team -continue supportive care -will follow Subjective Date of service: 10/31/17 Principal diagnosis: abd distention Interval history: Abd still distended this am with no stool in rectal tube. No BMs overnight or this am per nursing. Objective - Constitutional Vitals: Temp Pulse Resp BP Pulse Ox 99.6 F 93 H 17 139/84 93 10/31/17 08:28 10/31/17 08:28 10/31/17 08:28 10/31/17 08:28 10/31/17 08:28 General appearance: no acute distress - EENT ENT: other (+NGT) - Respiratory Respiratory: bilateral: CTA (anterior) - Cardiovascular Rhythm: regular Heart Sounds: Present: S1 & S2 - Gastrointestinal General gastrointestinal: Present: non-tender, distended, normal bowel sounds, other (+PEG) - Labs CBC & Chem 7: 10/31/17 05:37 10/31/17 05:37 Labs: Laboratory Results - last 24 hr 10/30/17 10/30/17 10/30/17 12:15 17:04 23:13 WBC RBC Hgb Hct MCV MCH MCHC RDW Plt Count [place] % (Auto) Add Manual Diff Total Counted Seg Neuts % (Manual) Band Neutrophils % Lymphocytes % (Manual) Reactive Lymphs % (Man) Monocytes % (Manual) Eosinophils % (Manual) Basophils % (Manual) Metamyelocytes % Myelocytes % Promyelocytes % Blast Cells % Nucleated RBC % Seg Neutrophils # Man Band Neutrophils # Lymphocytes # (Manual) Abs React Lymphs (Man) Monocytes # (Manual) Eosinophils # (Manual) Basophils # (Manual) Metamyelocytes # Myelocytes # Promyelocytes # Blast Cells # WBC Morphology Hypersegmented Neuts Hyposegmented Neuts Hypogranular Neuts Smudge Cells Toxic Granulation Toxic Vacuolation Dohle Bodies Pelger-Huet Anomaly Kaitlyn Rods Platelet Estimate Clumped Platelets Plt Clumps, EDTA Large Platelets Giant Platelets Platelet Satelliting Plt Morphology Comment RBC Morphology Dimorphic RBCs Polychromasia Hypochromasia Poikilocytosis Anisocytosis Microcytosis Macrocytosis Spherocytes Pappenheimer Bodies Sickle Cells Target Cells Tear Drop Cells Ovalocytes Helmet Cells [place] Bodies [place] Rings [place] Cells Bite Cells Crenated Cell Elliptocytes Acanthocytes (Spur) Rouleaux Hemoglobin C Crystals Schistocytes Malaria parasites Dionisio Bodies Hem Pathologist Commnt Sodium Potassium Chloride Carbon Dioxide Anion Gap BUN Creatinine Estimated GFR BUN/Creatinine Ratio Glucose POC Glucose 274 H 266 H 234 H Calcium 10/31/17 10/31/17 05:37 05:37 WBC 9.7 RBC 3.75 Hgb 12.2 Hct 37.5 MCV 100 H MCH 33 H MCHC 33 RDW 13.7 Plt Count 357 [place] % (Auto) [place] Aide Add Manual Diff Complete Total Counted 100 Seg Neuts % (Manual) 58.0 Band Neutrophils % 2.0 Lymphocytes % (Manual) 17.0 Reactive Lymphs % (Man) 0 Monocytes % (Manual) 18.0 H Eosinophils % (Manual) 5.0 H Basophils % (Manual) 0 Metamyelocytes % 0 Myelocytes % 0 Promyelocytes % 0 Blast Cells % 0 Nucleated RBC % 1.0 H Seg Neutrophils # Man 5.6 Band Neutrophils # 0.2 Lymphocytes # (Manual) 1.6 Abs React Lymphs (Man) 0.0 Monocytes # (Manual) 1.7 H Eosinophils # (Manual) 0.5 H Basophils # (Manual) 0.0 Metamyelocytes # 0.0 Myelocytes # 0.0 Promyelocytes # 0.0 Blast Cells # 0.0 WBC Morphology Not Reportable Hypersegmented Neuts Not Reportable Hyposegmented Neuts Not Reportable Hypogranular Neuts Not Reportable Smudge Cells Not Reportable Toxic Granulation Not Reportable Toxic Vacuolation Not Reportable Dohle Bodies Not Reportable Pelger-Huet Anomaly Not Reportable Kaitlyn Rods Not Reportable Platelet Estimate Consistent w auto Clumped Platelets Not Reportable Plt Clumps, EDTA Not Reportable Large Platelets Not Reportable Giant Platelets Not Reportable Platelet Satelliting Not Reportable Plt Morphology Comment Not Reportable RBC Morphology Not Reportable Dimorphic RBCs Not Reportable Polychromasia Rare Hypochromasia Not Reportable Poikilocytosis Not Reportable Anisocytosis Not Reportable Microcytosis Not Reportable Macrocytosis Not Reportable Spherocytes Not Reportable Pappenheimer Bodies Not Reportable Sickle Cells Not Reportable Target Cells Not Reportable Tear Drop Cells Not Reportable Ovalocytes Not Reportable Helmet Cells Not Reportable [place] Bodies Not Reportable [place] Rings Not Reportable [place] Cells Not Reportable Bite Cells Not Reportable Crenated Cell Not Reportable Elliptocytes Not Reportable Acanthocytes (Spur) Not Reportable Rouleaux Not Reportable Hemoglobin C Crystals Not Reportable Schistocytes Not Reportable Malaria parasites Not Reportable Dionisio Bodies Not Reportable Hem Pathologist Commnt No Sodium 137 Potassium 3.9 D Chloride 94.3 L Carbon Dioxide 26 Anion Gap 21 BUN 27 H Creatinine 1.0 Estimated GFR > 60 BUN/Creatinine Ratio 27 Glucose 253 H POC Glucose Calcium 9.4 <MANUEL BORREGO R - Last Filed: 10/31/17 17:34> Assessment and Plan Pt had Gastrograffin enema, and has had a good response with soft light brown stool. Abd is softer, though still distended. G-tube collapses to suction, so NGT being used. If optimizing electrolytes and thyroid meds does not help mitigate this, and it is a chronic condition, pt may well warrant consideration of surgical management with colostomy or cecostomy to vent colon. Objective - Constitutional Vitals: Temp Pulse Resp BP Pulse Ox 99.3 F 102 H 17 172/97 94 10/31/17 11:30 10/31/17 11:30 10/31/17 11:30 10/31/17 11:30 10/31/17 11:30 - Labs CBC & Chem 7: 10/31/17 05:37 10/31/17 05:37 Labs: Laboratory Results - last 24 hr 10/30/17 10/31/17 10/31/17 23:13 05:37 05:37 WBC 9.7 RBC 3.75 Hgb 12.2 Hct 37.5 MCV 100 H MCH 33 H MCHC 33 RDW 13.7 Plt Count 357 [place] % (Auto) [place] Aide Add Manual Diff Complete Total Counted 100 Seg Neuts % (Manual) 58.0 Band Neutrophils % 2.0 Lymphocytes % (Manual) 17.0 Reactive Lymphs % (Man) 0 Monocytes % (Manual) 18.0 H Eosinophils % (Manual) 5.0 H Basophils % (Manual) 0 Metamyelocytes % 0 Myelocytes % 0 Promyelocytes % 0 Blast Cells % 0 Nucleated RBC % 1.0 H Seg Neutrophils # Man 5.6 Band Neutrophils # 0.2 Lymphocytes # (Manual) 1.6 Abs React Lymphs (Man) 0.0 Monocytes # (Manual) 1.7 H Eosinophils # (Manual) 0.5 H Basophils # (Manual) 0.0 Metamyelocytes # 0.0 Myelocytes # 0.0 Promyelocytes # 0.0 Blast Cells # 0.0 WBC Morphology Not Reportable Hypersegmented Neuts Not Reportable Hyposegmented Neuts Not Reportable Hypogranular Neuts Not Reportable Smudge Cells Not Reportable Toxic Granulation Not Reportable Toxic Vacuolation Not Reportable Dohle Bodies Not Reportable Pelger-Huet Anomaly Not Reportable Kaitlyn Rods Not Reportable Platelet Estimate Consistent w auto Clumped Platelets Not Reportable Plt Clumps, EDTA Not Reportable Large Platelets Not Reportable Giant Platelets Not Reportable Platelet Satelliting Not Reportable Plt Morphology Comment Not Reportable RBC Morphology Not Reportable Dimorphic RBCs Not Reportable Polychromasia Rare Hypochromasia Not Reportable Poikilocytosis Not Reportable Anisocytosis Not Reportable Microcytosis Not Reportable Macrocytosis Not Reportable Spherocytes Not Reportable Pappenheimer Bodies Not Reportable Sickle Cells Not Reportable Target Cells Not Reportable Tear Drop Cells Not Reportable Ovalocytes Not Reportable Helmet Cells Not Reportable [place] Bodies Not Reportable [place] Rings Not Reportable [place] Cells Not Reportable Bite Cells Not Reportable Crenated Cell Not Reportable Elliptocytes Not Reportable Acanthocytes (Spur) Not Reportable Rouleaux Not Reportable Hemoglobin C Crystals Not Reportable Schistocytes Not Reportable Malaria parasites Not Reportable Dionisio Bodies Not Reportable Hem Pathologist Commnt No Sodium 137 Potassium 3.9 D Chloride 94.3 L Carbon Dioxide 26 Anion Gap 21 BUN 27 H Creatinine 1.0 Estimated GFR > 60 BUN/Creatinine Ratio 27 Glucose 253 H POC Glucose 234 H Calcium 9.4
--- NOTE | 2017-10-31 11:34 | Progress Note ---
Assessment and Plan Assessment and plan: Colon distention/rectosigmoid inflammation. Surgery and GI following. Continue IV fluid hydration and PEG tube to suction. Continue empiric antibiotics of Flagyl and Levaquin. Diabetes mellitus type 2. Continue Accu-Cheks and sliding scale insulin. Seizure disorder. Continue medications. Changed Keppra to IV given the nothing by mouth status Hypertension. Change the hydralazine to IV. Given the nothing by mouth status Hypothyroidism. Synthroid daily History Interval history: Patient is somnolent. Hospitalist Physical - Constitutional Vitals: Temp Pulse Resp BP Pulse Ox 99.6 F 93 H 17 139/84 93 10/31/17 08:28 10/31/17 08:28 10/31/17 08:28 10/31/17 08:28 10/31/17 08:28 General appearance: Present: no acute distress, well-nourished - EENT Eyes: Present: PERRL, EOM intact ENT: hearing intact, clear oral mucosa, dentition normal - Neck Neck: Present: supple, normal ROM - Respiratory Respiratory effort: normal Respiratory: bilateral: CTA - Cardiovascular Rhythm: regular Heart Sounds: Present: S1 & S2. Absent: gallop, rub - Extremities Extremities: no ischemia, No edema, Full ROM - Abdominal General gastrointestinal: soft, non-tender, distended, normal bowel sounds - Integumentary Integumentary: Present: clear, warm, dry - Neurologic Neurologic: CNII-XII intact, moves all extremities Results - Labs CBC & Chem 7: 10/31/17 05:37 10/31/17 05:37 Labs: Laboratory Last Values WBC 9.7 K/mm3 (4.5-11.0) 10/31/17 05:37 RBC 3.75 M/mm3 (3.65-5.03) 10/31/17 05:37 Hgb 12.2 gm/dl (11.8-15.2) 10/31/17 05:37 Hct 37.5 % (35.5-45.6) 10/31/17 05:37 MCV 100 fl (84-94) H 10/31/17 05:37 MCH 33 pg (28-32) H 10/31/17 05:37 MCHC 33 % (32-34) 10/31/17 05:37 RDW 13.7 % (13.2-15.2) 10/31/17 05:37 Plt Count 357 K/mm3 (140-440) 10/31/17 05:37 [place] % (Auto) Mobile Application Engineer 10/31/17 05:37 Add Manual Diff Complete 10/31/17 05:37 Total Counted 100 10/31/17 05:37 Seg Neuts % (Manual) 58.0 % (40.0-70.0) 10/31/17 05:37 Band Neutrophils % 2.0 % 10/31/17 05:37 Lymphocytes % (Manual) 17.0 % (13.4-35.0) 10/31/17 05:37 Reactive Lymphs % (Man) 0 % 10/31/17 05:37 Monocytes % (Manual) 18.0 % (0.0-7.3) H 10/31/17 05:37 Eosinophils % (Manual) 5.0 % (0.0-4.3) H 10/31/17 05:37 Basophils % (Manual) 0 % (0.0-1.8) 10/31/17 05:37 Metamyelocytes % 0 % 10/31/17 05:37 Myelocytes % 0 % 10/31/17 05:37 Promyelocytes % 0 % 10/31/17 05:37 Blast Cells % 0 % 10/31/17 05:37 Nucleated RBC % 1.0 % (0.0-0.9) H 10/31/17 05:37 Seg Neutrophils # Man 5.6 K/mm3 (1.8-7.7) 10/31/17 05:37 Band Neutrophils # 0.2 K/mm3 10/31/17 05:37 Lymphocytes # (Manual) 1.6 K/mm3 (1.2-5.4) 10/31/17 05:37 Abs React Lymphs (Man) 0.0 K/mm3 10/31/17 05:37 Monocytes # (Manual) 1.7 K/mm3 (0.0-0.8) H 10/31/17 05:37 Eosinophils # (Manual) 0.5 K/mm3 (0.0-0.4) H 10/31/17 05:37 Basophils # (Manual) 0.0 K/mm3 (0.0-0.1) 10/31/17 05:37 Metamyelocytes # 0.0 K/mm3 10/31/17 05:37 Myelocytes # 0.0 K/mm3 10/31/17 05:37 Promyelocytes # 0.0 K/mm3 10/31/17 05:37 Blast Cells # 0.0 K/mm3 10/31/17 05:37 WBC Morphology Not Reportable 10/31/17 05:37 Hypersegmented Neuts Not Reportable 10/31/17 05:37 Hyposegmented Neuts Not Reportable 10/31/17 05:37 Hypogranular Neuts Not Reportable 10/31/17 05:37 Smudge Cells Not Reportable 10/31/17 05:37 Toxic Granulation Not Reportable 10/31/17 05:37 Toxic Vacuolation Not Reportable 10/31/17 05:37 Dohle Bodies Not Reportable 10/31/17 05:37 Pelger-Huet Anomaly Not Reportable 10/31/17 05:37 Kaitlyn Rods Not Reportable 10/31/17 05:37 Platelet Estimate Consistent w auto 10/31/17 05:37 Clumped Platelets Not Reportable 10/31/17 05:37 Plt Clumps, EDTA Not Reportable 10/31/17 05:37 Large Platelets Not Reportable 10/31/17 05:37 Giant Platelets Not Reportable 10/31/17 05:37 Platelet Satelliting Not Reportable 10/31/17 05:37 Plt Morphology Comment Not Reportable 10/31/17 05:37 RBC Morphology Not Reportable 10/31/17 05:37 Dimorphic RBCs Not Reportable 10/31/17 05:37 Polychromasia Rare 10/31/17 05:37 Hypochromasia Not Reportable 10/31/17 05:37 Poikilocytosis Not Reportable 10/31/17 05:37 Anisocytosis Not Reportable 10/31/17 05:37 Microcytosis Not Reportable 10/31/17 05:37 Macrocytosis Not Reportable 10/31/17 05:37 Spherocytes Not Reportable 10/31/17 05:37 Pappenheimer Bodies Not Reportable 10/31/17 05:37 Sickle Cells Not Reportable 10/31/17 05:37 Target Cells Not Reportable 10/31/17 05:37 Tear Drop Cells Not Reportable 10/31/17 05:37 Ovalocytes Not Reportable 10/31/17 05:37 Helmet Cells Not Reportable 10/31/17 05:37 [place] Bodies Not Reportable 10/31/17 05:37 [place] Rings Not Reportable 10/31/17 05:37 [place] Cells Not Reportable 10/31/17 05:37 Bite Cells Not Reportable 10/31/17 05:37 Crenated Cell Not Reportable 10/31/17 05:37 Elliptocytes Not Reportable 10/31/17 05:37 Acanthocytes (Spur) Not Reportable 10/31/17 05:37 Rouleaux Not Reportable 10/31/17 05:37 Hemoglobin C Crystals Not Reportable 10/31/17 05:37 Schistocytes Not Reportable 10/31/17 05:37 Malaria parasites Not Reportable 10/31/17 05:37 Dionisio Bodies Not Reportable 10/31/17 05:37 Hem Pathologist Commnt No 10/31/17 05:37 Sodium 137 mmol/L (137-145) 10/31/17 05:37 Potassium 3.9 mmol/L (3.6-5.0) D 10/31/17 05:37 Chloride 94.3 mmol/L (98-107) L 10/31/17 05:37 Carbon Dioxide 26 mmol/L (22-30) 10/31/17 05:37 Anion Gap 21 mmol/L 10/31/17 05:37 BUN 27 mg/dL (9-20) H 10/31/17 05:37 Creatinine 1.0 mg/dL (0.8-1.5) 10/31/17 05:37 Estimated GFR > 60 ml/min 10/31/17 05:37 BUN/Creatinine Ratio 27 % 10/31/17 05:37 Glucose 253 mg/dL (75-100) H 10/31/17 05:37 POC Glucose 234 (70-105) H 10/30/17 23:13 Calcium 9.4 mg/dL (8.4-10.2) 10/31/17 05:37 Total Bilirubin 0.20 mg/dL (0.1-1.2) 10/29/17 21:25 AST 18 units/L (5-40) 10/29/17 21:25 ALT 18 units/L (7-56) 10/29/17 21:25 Alkaline Phosphatase 143 units/L (35-129) H 10/29/17 21: Total Protein 6.4 g/dL (6.3-8.2) 10/29/17: Albumin 3.8 g/dL (3.9-5) L 10/29/17: Albumin/Globulin Ratio 1.5 % 10/29/17: Lipase 17 units/L (13-60) 10/29/17: TSH 41.620 mlU/mL (0.270-4.200) H 10/29/17: Free T4 0.70 ng/dL (0.76-1.46) L 10/29/17: Urine Color [place] (Yellow) 10/29/17: Urine Turbidity Clear (Clear) 10/29/17: Urine pH 5.0 (5.0-7.0) 10/29/17: Ur Specific [place] 1.031 (1.003-1.030) H 10/29/17: Urine Protein 100 mg/dl mg/dL (Negative) 10/29/17: Urine Glucose (UA) >=500 mg/dL (Negative) 10/29/17: Urine Ketones Tr mg/dL (Negative) 10/29/17: Urine Blood Neg (Negative) 10/29/17: Urine Nitrite Neg (Negative) 10/29/17 21: Urine Bilirubin Neg (Negative) 10/29/17: Urine Urobilinogen 2.0 mg/dL (<2.0) 10/29/17: Ur Leukocyte Esterase Mod (Negative) 10/29/17: Urine WBC (Auto) 38.0 /HPF (0.0-6.0) H 10/29/17: Urine RBC (Auto) 79.0 /HPF (0.0-6.0) 10/29/17: U Epithel Cells (Auto) 1.0 /HPF (0-13.0) 10/29/17 21: Urine Bacteria (Auto) 2+ /HPF (Negative) 10/29/17 21: Urine Mucus 1+ /HPF 10/29/17: Valproic Acid 47.7 ug/mL (50-100) L 10/29/17:
[2017-10-31] MEDS: APRESOLINE IV PRN (18:22)
[2017-11-01] MEDS: FLAGYL 500 MG/100 ML 500 MG/100 ML BAG IV SCH ×3 (05:12→22:01)
[2017-11-01] MEDS: SYNTHROID FEEDTUBE SCH (05:13)
[2017-11-01] MEDS: DULCOLAX PR SCH (09:13)
--- NOTE | 2017-11-01 10:47 | Progress Note ---
Assessment and Plan Assessment and plan: Colon distention/rectosigmoid inflammation. Surgery and GI following. CT showed diffuse colonic distention. KUB showed diffuse gaseous distention of the colon and mild constipation. Etiology unclear- possible Ileus vs Ralf's vs constipation. We will consider Neostigmine trial vs colonic decompression pending results of gastrograffin enema per GI. Continue IV fluid hydration and NGT to suction. Continue empiric antibiotics of Flagyl and Levaquin. Diabetes mellitus type 2. Continue Accu-Cheks and sliding scale insulin. Seizure disorder. Continue medications. Changed Keppra to IV given the nothing by mouth status Hypertension. Change the hydralazine to IV. Given the nothing by mouth status Hypothyroidism. Synthroid daily History Interval history: Patient is somnolent. Hospitalist Physical - Constitutional Vitals: Temp Pulse Resp BP Pulse Ox 98.3 F 106 H 16 183/108 93 11/01/17 08:54 11/01/17 08:54 11/01/17 08:54 11/01/17 08:54 11/01/17 08:54 General appearance: Present: no acute distress, well-nourished - EENT Eyes: Present: PERRL, EOM intact ENT: hearing intact, clear oral mucosa, dentition normal - Neck Neck: Present: supple, normal ROM - Respiratory Respiratory effort: normal Respiratory: bilateral: CTA - Cardiovascular Rhythm: regular Heart Sounds: Present: S1 & S2. Absent: gallop, rub - Extremities Extremities: no ischemia, No edema, Full ROM - Abdominal General gastrointestinal: soft, non-tender, distended, normal bowel sounds - Integumentary Integumentary: Present: clear, warm, dry - Neurologic Neurologic: CNII-XII intact, moves all extremities Results - Labs CBC & Chem 7: 10/31/17 05:37 10/31/17 05:37 Labs: Laboratory Last Values WBC 9.7 K/mm3 (4.5-11.0) 10/31/17 05:37 RBC 3.75 M/mm3 (3.65-5.03) 10/31/17 05:37 Hgb 12.2 gm/dl (11.8-15.2) 10/31/17 05:37 Hct 37.5 % (35.5-45.6) 10/31/17 05:37 MCV 100 fl (84-94) H 10/31/17 05:37 MCH 33 pg (28-32) H 10/31/17 05:37 MCHC 33 % (32-34) 10/31/17 05:37 RDW 13.7 % (13.2-15.2) 10/31/17 05:37 Plt Count 357 K/mm3 (140-440) 10/31/17 05:37 [place] % (Auto) Coal 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 Supervisor 10/31/17 05:37 Add Manual Diff Complete 10/31/17 05:37 Total Counted 100 10/31/17 05:37 Seg Neuts % (Manual) 58.0 % (40.0-70.0) 10/31/17 05:37 Band Neutrophils % 2.0 % 10/31/17 05:37 Lymphocytes % (Manual) 17.0 % (13.4-35.0) 10/31/17 05:37 Reactive Lymphs % (Man) 0 % 10/31/17 05:37 Monocytes % (Manual) 18.0 % (0.0-7.3) H 10/31/17 05:37 Eosinophils % (Manual) 5.0 % (0.0-4.3) H 10/31/17 05:37 Basophils % (Manual) 0 % (0.0-1.8) 10/31/17 05:37 Metamyelocytes % 0 % 10/31/17 05:37 Myelocytes % 0 % 10/31/17 05:37 Promyelocytes % 0 % 10/31/17 05:37 Blast Cells % 0 % 10/31/17 05:37 Nucleated RBC % 1.0 % (0.0-0.9) H 10/31/17 05:37 Seg Neutrophils # Man 5.6 K/mm3 (1.8-7.7) 10/31/17 05:37 Band Neutrophils # 0.2 K/mm3 10/31/17 05:37 Lymphocytes # (Manual) 1.6 K/mm3 (1.2-5.4) 10/31/17 05:37 Abs React Lymphs (Man) 0.0 K/mm3 10/31/17 05:37 Monocytes # (Manual) 1.7 K/mm3 (0.0-0.8) H 10/31/17 05:37 Eosinophils # (Manual) 0.5 K/mm3 (0.0-0.4) H 10/31/17 05:37 Basophils # (Manual) 0.0 K/mm3 (0.0-0.1) 10/31/17 05:37 Metamyelocytes # 0.0 K/mm3 10/31/17 05:37 Myelocytes # 0.0 K/mm3 10/31/17 05:37 Promyelocytes # 0.0 K/mm3 10/31/17 05:37 Blast Cells # 0.0 K/mm3 10/31/17 05:37 WBC Morphology Not Reportable 10/31/17 05:37 Hypersegmented Neuts Not Reportable 10/31/17 05:37 Hyposegmented Neuts Not Reportable 10/31/17 05:37 Hypogranular Neuts Not Reportable 10/31/17 05:37 Smudge Cells Not Reportable 10/31/17 05:37 Toxic Granulation Not Reportable 10/31/17 05:37 Toxic Vacuolation Not Reportable 10/31/17 05:37 Dohle Bodies Not Reportable 10/31/17 05:37 Pelger-Huet Anomaly Not Reportable 10/31/17 05:37 Kaitlyn Rods Not Reportable 10/31/17 05:37 Platelet Estimate Consistent w auto 10/31/17 05:37 Clumped Platelets Not Reportable 10/31/17 05:37 Plt Clumps, EDTA Not Reportable 10/31/17 05:37 Large Platelets Not Reportable 10/31/17 05:37 Giant Platelets Not Reportable 10/31/17 05:37 Platelet Satelliting Not Reportable 10/31/17 05:37 Plt Morphology Comment Not Reportable 10/31/17 05:37 RBC Morphology Not Reportable 10/31/17 05:37 Dimorphic RBCs Not Reportable 10/31/17 05:37 Polychromasia Rare 10/31/17 05:37 Hypochromasia Not Reportable 10/31/17 05:37 Poikilocytosis Not Reportable 10/31/17 05:37 Anisocytosis Not Reportable 10/31/17 05:37 Microcytosis Not Reportable 10/31/17 05:37 Macrocytosis Not Reportable 10/31/17 05:37 Spherocytes Not Reportable 10/31/17 05:37 Pappenheimer Bodies Not Reportable 10/31/17 05:37 Sickle Cells Not Reportable 10/31/17 05:37 Target Cells Not Reportable 10/31/17 05:37 Tear Drop Cells Not Reportable 10/31/17 05:37 Ovalocytes Not Reportable 10/31/17 05:37 Helmet Cells Not Reportable 10/31/17 05:37 [place] Bodies Not Reportable 10/31/17 05:37 [place] Rings Not Reportable 10/31/17 05:37 [place] Cells Not Reportable 10/31/17 05:37 Bite Cells Not Reportable 10/31/17 05:37 Crenated Cell Not Reportable 10/31/17 05:37 Elliptocytes Not Reportable 10/31/17 05:37 Acanthocytes (Spur) Not Reportable 10/31/17 05:37 Rouleaux Not Reportable 10/31/17 05:37 Hemoglobin C Crystals Not Reportable 10/31/17 05:37 Schistocytes Not Reportable 10/31/17 05:37 Malaria parasites Not Reportable 10/31/17 05:37 Dionisio Bodies Not Reportable 10/31/17 05:37 Hem Pathologist Commnt No 10/31/17 05:37 Sodium 137 mmol/L (137-145) 10/31/17 05:37 Potassium 3.9 mmol/L (3.6-5.0) D 10/31/17 05:37 Chloride 94.3 mmol/L (98-107) L 10/31/17 05:37 Carbon Dioxide 26 mmol/L (22-30) 10/31/17 05:37 Anion Gap 21 mmol/L 10/31/17 05:37 BUN 27 mg/dL (9-20) H 10/31/17 05:37 Creatinine 1.0 mg/dL (0.8-1.5) 10/31/17 05:37 Estimated GFR > 60 ml/min 10/31/17 05:37 BUN/Creatinine Ratio 27 % 10/31/17 05:37 Glucose 253 mg/dL (75-100) H 10/31/17 05:37 POC Glucose 220 (70-105) H 11/01/17 06:31 Calcium 9.4 mg/dL (8.4-10.2) 10/31/17 05:37 Total Bilirubin 0.20 mg/dL (0.1-1.2) 10/29/17 21:25 AST 18 units/L (5-40) 10/29/17 21:25 ALT 18 units/L (7-56) 10/29/17 21:25 Alkaline Phosphatase 143 units/L (35-129) H 10/29/17 21:25 Total Protein 6.4 g/dL (6.3-8.2) 10/29/17 21: Albumin 3.8 g/dL (3.9-5) L 10/29/17: Albumin/Globulin Ratio 1.5 % 10/29/17 21: Lipase 17 units/L (13-60) 10/29/17 21: TSH 41.620 mlU/mL (0.270-4.200) H 10/29/17: Free T4 0.70 ng/dL (0.76-1.46) L 10/29/17 21: Urine Color [place] (Yellow) 10/29/17 21: Urine Turbidity Clear (Clear) 10/29/17 21: Urine pH 5.0 (5.0-7.0) 10/29/17: Ur Specific [place] 1.031 (1.003-1.030) H 10/29/17 21: Urine Protein 100 mg/dl mg/dL (Negative) 10/29/17 21: Urine Glucose (UA) >=500 mg/dL (Negative) 10/29/17 21: Urine Ketones Tr mg/dL (Negative) 10/29/17: Urine Blood Neg (Negative) 10/29/17 21: Urine Nitrite Neg (Negative) 10/29/17 21: Urine Bilirubin Neg (Negative) 10/29/17 21: Urine Urobilinogen 2.0 mg/dL (<2.0) 10/29/17 21: Ur Leukocyte Esterase Mod (Negative) 10/29/17 21: Urine WBC (Auto) 38.0 /HPF (0.0-6.0) H 10/29/17 21: Urine RBC (Auto) 79.0 /HPF (0.0-6.0) 10/29/17 21: U Epithel Cells (Auto) 1.0 /HPF (0-13.0) 10/29/17 21:28 Urine Bacteria (Auto) 2+ /HPF (Negative) 10/29/17 21:28 Urine Mucus 1+ /HPF 10/29/17 21:28 Valproic Acid 47.7 ug/mL (50-100) L 10/29/17 21:25
[2017-11-01] MEDS: KEPPRA 1,000 MG in NACL 0.9% 100 ML IV SCH ×3 (11:00→22:17)
[2017-11-01] MEDS: LEVAQUIN 750MG/150ML 750 MG/150 ML BAG IV SCH (11:00)
[2017-11-01] MEDS: TRILEPTAL PO SCH ×2 (11:00→22:15)
[2017-11-01] MEDS: DepaKENE Liq FEEDTUBE SCH ×2 (11:11→22:01)
--- NOTE | 2017-11-01 12:43 | Progress Note ---
Assessment and Plan - Patient Problems (1) Colon distention Current Visit: Yes Status: Acute Plan to address problem: Patient does not show signs suggestive of acute process requiring surgical intervention. Need to monitor for signs of increased colonic distention which may force us to operate. In looking back at his records, this has been a chronic problem for him. There are multiple abdominal x-rays showing colonic distention that appears unchanged today. Discussed case with Dr. Iraheta yesterday. This will probably be a recurrent problem that will inevitably lead to recurrent hospital admissions. We discussed various options. He may ultimately benefit from a subtotal colectomy to remove this recurrent problem. Dr. Iraheta said that he would discuss various options with the family. 1) NGT to suction (PEG was collapsing under suction) 2) rehydrate 3) Give thyroid hormone replacement. 4) Can try enemas to relieve some of the pressure 5) Once hydrated, if stool no improvement in colonic distention, can try IM Neostigmine 2.5mg. No need for invasive monitoring if given IM. 6) C-scope decompression may be an option, would defer to GI. 7) Would consider d/c of Abx. 8) Minimize or avoid anticholinergic drugs. Will follow along. Await results of family meeting with Dr. Iraheta. Time=15min Subjective Date of service: 11/01/17 Patient Reports: Positive: other (no new issues o/n. Gastrograffin enema led to significant decrease in abdominal distention yesterday per GI.) Objective Vital Signs - 12hr 11/01/17 11/01/17 11/01/17 03:00 05:31 08:54 Temperature 98.5 F 98.3 F Pulse Rate 109 H 111 H 106 H Respiratory 24 16 Rate Blood Pressure 120/100 183/108 [Right] O2 Sat by Pulse 96 93 Oximetry - General physical appearance well developed, no distress, no pain - Respiratory normal expansion, normal respiratory effort - Abdomen soft, not tender, bowel sounds normal, distended (less than before), not guarding, not rigid - Integumentary no rash - Labs 10/31/17 05:37 10/31/17 05:37
--- NOTE | 2017-11-01 14:22 | Progress Note ---
Assessment and Plan 1. Abd distention - Pt had Gastrograffin enema, and continues to have good response with soft light brown stool. Abd is softer, though still distended. - If optimizing electrolytes and thyroid meds does not help mitigate this, and it is a chronic condition, pt may well warrant consideration of surgical management with colostomy or cecostomy to vent colon. - Hospitalist to optimize thyroid function and electrolytes - discussed likelihood of chronic problems with sister, who states she though problem really started after last admission. Discussed surgical options, and she is willing to consider. - meantime, po Dulcolax 2. NGT - unsure if truly needed, and would consider D/C'ng and adv diet. Subjective Date of service: 11/01/17 Principal diagnosis: abd distention Interval history: Pt still having loose BMs, per RN. Sister in room. Objective - Constitutional Vitals: Vital Signs - 12hr 11/01/17 11/01/17 11/01/17 03:00 05:13 05:31 Temperature 98.5 F 98.5 F Pulse Rate 109 H 110 H 111 H Respiratory 24 24 Rate Blood Pressure 172/134 Blood Pressure 120/100 [Right] O2 Sat by Pulse 96 96 Oximetry 11/01/17 11/01/17 08:54 12:47 Temperature 98.3 F 98.1 F Pulse Rate 106 H 106 H Respiratory 16 22 Rate Blood Pressure Blood Pressure 183/108 178/104 [Right] O2 Sat by Pulse 93 97 Oximetry General appearance: Present: no acute distress - EENT Eyes: PERRL, EOM intact - Respiratory Respiratory effort: normal - Gastrointestinal General gastrointestinal: Present: non-tender, distended, normal bowel sounds - Labs CBC & Chem 7: 10/31/17 05:37 10/31/17 05:37 Labs: Abnormal lab results 10/31/17 10/31/17 10/31/17 Range/Units 08:01 11:36 16:19 POC Glucose 241 H 233 H 217 H (70-105) 10/31/17 11/01/17 Range/Units 21:58 06:31 POC Glucose 185 H 220 H (70-105)
--- NOTE | 2017-11-01 15:46 | Query- Abnormal Electrolytes ---
Deakaty Pang Alex Date:____11/01/17 Cat [employer] Dog [employer]ather/CDS:____Rohit Phone#:____[phone] Exercise your independent professional judgment when responding to this query. Questions asked do not imply a particular answer is desired or expected. We greatly appreciate your clarification on this issue. Clinical Documentation States: 62 year old male was admitted on 10/30/17 The Progress note (Dr. Johnson 11/01/17) states " Assessment and plan: Colon distention/rectosigmoid inflammation. Surgery and GI following. CT showed diffuse colonic distention. KUB showed diffuse gaseous distention of the colon and mild constipation. Etiology unclear- possible Ileus vs Sawyer's vs constipation. " Clinical Findings Show: Na:[id number] Can you please clarify whether you mean? [ x] Hyponatremia [ ] Hypokalemia [ ] Hypocalcemia [ ] Hypomagnesemia [ ] Hypernatremia [ ] Hyperkalemia [ ] Hypercalcemia [ ] Hypermagnesemia [ ] Sodium deficiency [ ] Potassium deficiency [ ] Hypochloremia [ ] Sodium excess [ ] Potassium excess [ ] Hyperchloremia [ ] Sodium overload [ ] Potassium overload [ ] Hypophosphatemia [ ] Hyperphosphatemia Acidosis; [ ] Respiratory [ ] Metabolic Alkalosis; [ ] Respiratory [ ] Metabolic [ ] Other: [ ] Comment/Explanation: Present on Admission: [ x] Yes (Y) [ ] Clinically undeterminable (W) [ ]No(N) Please also document response in your Progress Notes and/or Discharge Summary and indicate if the condition was present on admission. MARIE
--- NOTE | 2017-11-01 16:13 | XRay Report ---
FINAL REPORT EXAM: XR ABDOMEN 1V AP HISTORY: NG Tube palcement confirmation. TECHNIQUE: AP abdominal radiograph. PRIORS: Abdominal radiographs 08/23/2015. FINDINGS: Enteric tube is present with the tip projecting in the stomach. Percutaneous gastrostomy tube projects over the left upper quadrant. Diffuse gaseous distention of the colon is seen. No organomegaly or masses. No abnormal calcifications. No acute osseous abnormality. IMPRESSION: Enteric tube tip projecting in the stomach.
[2017-11-01] MEDS: APRESOLINE IV PRN (22:01)
[2017-11-02] MEDS: FLAGYL 500 MG/100 ML 500 MG/100 ML BAG IV SCH ×3 (05:45→21:45)
[2017-11-02] MEDS: APRESOLINE IV PRN (05:46)
[2017-11-02] MEDS: SYNTHROID FEEDTUBE SCH (05:46)
[2017-11-02] MEDS ORDERED: LIOTHYRONINE PO SCH (10:00)
--- NOTE | 2017-11-02 10:43 | Progress Note ---
Assessment and Plan Assessment and plan: Colon distention/rectosigmoid inflammation. Surgery and GI following. CT showed diffuse colonic distention. KUB showed diffuse gaseous distention of the colon and mild constipation. Pt had Gastrograffin enema, and continues to have good response with soft light brown stool. Pt may well warrant consideration of surgical management with colostomy or cecostomy to vent colon. Continue IV fluid hydration and electrolyte replacement. Continue empiric antibiotics of Flagyl and Levaquin. Diabetes mellitus type 2. Continue Accu-Cheks and sliding scale insulin. Seizure disorder. Continue medications. Changed Keppra to IV given the nothing by mouth status Hypertension. Change the hydralazine to IV. Given the nothing by mouth status Hypothyroidism. Synthroid daily History Interval history: Patient is somnolent. Hospitalist Physical - Constitutional Vitals: Temp Pulse Resp BP Pulse Ox 98.8 F 74 24 178/98 98 11/02/17 09:03 11/02/17 09:03 11/02/17 09:03 11/02/17 09:03 11/02/17 09:03 General appearance: Present: no acute distress - EENT Eyes: Present: PERRL, EOM intact ENT: hearing intact, clear oral mucosa, dentition normal - Neck Neck: Present: supple, normal ROM - Respiratory Respiratory effort: normal Respiratory: bilateral: CTA - Cardiovascular Rhythm: regular Heart Sounds: Present: S1 & S2. Absent: gallop, rub - Extremities Extremities: no ischemia, No edema, Full ROM - Abdominal General gastrointestinal: soft, non-tender, non-distended, normal bowel sounds - Integumentary Integumentary: Present: clear, warm, dry - Neurologic Neurologic: CNII-XII intact, moves all extremities Results - Labs CBC & Chem 7: 10/31/17 05:37 10/31/17 05:37 Labs: Laboratory Last Values WBC 9.7 K/mm3 (4.5-11.0) 10/31/17 05:37 RBC 3.75 M/mm3 (3.65-5.03) 10/31/17 05:37 Hgb 12.2 gm/dl (11.8-15.2) 10/31/17 05:37 Hct 37.5 % (35.5-45.6) 10/31/17 05:37 MCV 100 fl (84-94) H 10/31/17 05:37 MCH 33 pg (28-32) H 10/31/17 05:37 MCHC 33 % (32-34) 10/31/17 05:37 RDW 13.7 % (13.2-15.2) 10/31/17 05:37 Plt Count 357 K/mm3 (140-440) 10/31/17 05:37 [place] % (Auto) Lab Animal Technologist 10/31/17 05:37 Add Manual Diff Complete 10/31/17 05:37 Total Counted 100 10/31/17 05:37 Seg Neuts % (Manual) 58.0 % (40.0-70.0) 10/31/17 05:37 Band Neutrophils % 2.0 % 10/31/17 05:37 Lymphocytes % (Manual) 17.0 % (13.4-35.0) 10/31/17 05:37 Reactive Lymphs % (Man) 0 % 10/31/17 05:37 Monocytes % (Manual) 18.0 % (0.0-7.3) H 10/31/17 05:37 Eosinophils % (Manual) 5.0 % (0.0-4.3) H 10/31/17 05:37 Basophils % (Manual) 0 % (0.0-1.8) 10/31/17 05:37 Metamyelocytes % 0 % 10/31/17 05:37 Myelocytes % 0 % 10/31/17 05:37 Promyelocytes % 0 % 10/31/17 05:37 Blast Cells % 0 % 10/31/17 05:37 Nucleated RBC % 1.0 % (0.0-0.9) H 10/31/17 05:37 Seg Neutrophils # Man 5.6 K/mm3 (1.8-7.7) 10/31/17 05:37 Band Neutrophils # 0.2 K/mm3 10/31/17 05:37 Lymphocytes # (Manual) 1.6 K/mm3 (1.2-5.4) 10/31/17 05:37 Abs React Lymphs (Man) 0.0 K/mm3 10/31/17 05:37 Monocytes # (Manual) 1.7 K/mm3 (0.0-0.8) H 10/31/17 05:37 Eosinophils # (Manual) 0.5 K/mm3 (0.0-0.4) H 10/31/17 05:37 Basophils # (Manual) 0.0 K/mm3 (0.0-0.1) 10/31/17 05:37 Metamyelocytes # 0.0 K/mm3 10/31/17 05:37 Myelocytes # 0.0 K/mm3 10/31/17 05:37 Promyelocytes # 0.0 K/mm3 10/31/17 05:37 Blast Cells # 0.0 K/mm3 10/31/17 05:37 WBC Morphology Not Reportable 10/31/17 05:37 Hypersegmented Neuts Not Reportable 10/31/17 05:37 Hyposegmented Neuts Not Reportable 10/31/17 05:37 Hypogranular Neuts Not Reportable 10/31/17 05:37 Smudge Cells Not Reportable 10/31/17 05:37 Toxic Granulation Not Reportable 10/31/17 05:37 Toxic Vacuolation Not Reportable 10/31/17 05:37 Dohle Bodies Not Reportable 10/31/17 05:37 Pelger-Huet Anomaly Not Reportable 10/31/17 05:37 Kaitlyn Rods Not Reportable 10/31/17 05:37 Platelet Estimate Consistent w auto 10/31/17 05:37 Clumped Platelets Not Reportable 10/31/17 05:37 Plt Clumps, EDTA Not Reportable 10/31/17 05:37 Large Platelets Not Reportable 10/31/17 05:37 Giant Platelets Not Reportable 10/31/17 05:37 Platelet Satelliting Not Reportable 10/31/17 05:37 Plt Morphology Comment Not Reportable 10/31/17 05:37 RBC Morphology Not Reportable 10/31/17 05:37 Dimorphic RBCs Not Reportable 10/31/17 05:37 Polychromasia Rare 10/31/17 05:37 Hypochromasia Not Reportable 10/31/17 05:37 Poikilocytosis Not Reportable 10/31/17 05:37 Anisocytosis Not Reportable 10/31/17 05:37 Microcytosis Not Reportable 10/31/17 05:37 Macrocytosis Not Reportable 10/31/17 05:37 Spherocytes Not Reportable 10/31/17 05:37 Pappenheimer Bodies Not Reportable 10/31/17 05:37 Sickle Cells Not Reportable 10/31/17 05:37 Target Cells Not Reportable 10/31/17 05:37 Tear Drop Cells Not Reportable 10/31/17 05:37 Ovalocytes Not Reportable 10/31/17 05:37 Helmet Cells Not Reportable 10/31/17 05:37 Lo-[place] Bodies Not Reportable 10/31/17 05:37 [place] Rings Not Reportable 10/31/17 05:37 [place] Cells Not Reportable 10/31/17 05:37 Bite Cells Not Reportable 10/31/17 05:37 Crenated Cell Not Reportable 10/31/17 05:37 Elliptocytes Not Reportable 10/31/17 05:37 Acanthocytes (Spur) Not Reportable 10/31/17 05:37 Rouleaux Not Reportable 10/31/17 05:37 Hemoglobin C Crystals Not Reportable 10/31/17 05:37 Schistocytes Not Reportable 10/31/17 05:37 Malaria parasites Not Reportable 10/31/17 05:37 Dionisio Bodies Not Reportable 10/31/17 05:37 Hem Pathologist Commnt No 10/31/17 05:37 Sodium 137 mmol/L (137-145) 10/31/17 05:37 Potassium 3.9 mmol/L (3.6-5.0) D 10/31/17 05:37 Chloride 94.3 mmol/L (98-107) L 10/31/17 05:37 Carbon Dioxide 26 mmol/L (22-30) 10/31/17 05:37 Anion Gap 21 mmol/L 10/31/17 05:37 BUN 27 mg/dL (9-20) H 10/31/17 05:37 Creatinine 1.0 mg/dL (0.8-1.5) 10/31/17 05:37 Estimated GFR > 60 ml/min 10/31/17 05:37 BUN/Creatinine Ratio 27 % 10/31/17 05:37 Glucose 253 mg/dL (75-100) H 10/31/17 05:37 POC Glucose 231 (70-105) H 11/01/17 16:05 Calcium 9.4 mg/dL (8.4-10.2) 10/31/17 05:37 Total Bilirubin 0.20 mg/dL (0.1-1.2) 10/29/17 21:25 AST 18 units/L (5-40) 10/29/17: ALT 18 units/L (7-56) 10/29/17: Alkaline Phosphatase 143 units/L (35-129) H 10/29/17 21: Total Protein 6.4 g/dL (6.3-8.2) 10/29/17: Albumin 3.8 g/dL (3.9-5) L 10/29/17: Albumin/Globulin Ratio 1.5 % 10/29/17: Lipase 17 units/L (13-60) 10/29/17: TSH 41.620 mlU/mL (0.270-4.200) H 10/29/17: Free T4 0.70 ng/dL (0.76-1.46) L 10/29/17: Urine Color [place] (Yellow) 10/29/17: Urine Turbidity Clear (Clear) 10/29/17: Urine pH 5.0 (5.0-7.0) 10/29/17: Ur Specific [place] 1.031 (1.003-1.030) H 10/29/17: Urine Protein 100 mg/dl mg/dL (Negative) 10/29/17: Urine Glucose (UA) >=500 mg/dL (Negative) 10/29/17: Urine Ketones Tr mg/dL (Negative) 10/29/17: Urine Blood Neg (Negative) 10/29/17: Urine Nitrite Neg (Negative) 10/29/17: Urine Bilirubin Neg (Negative) 10/29/17: Urine Urobilinogen 2.0 mg/dL (<2.0) 10/29/17: Ur Leukocyte Esterase Mod (Negative) 10/29/17: Urine WBC (Auto) 38.0 /HPF (0.0-6.0) H 10/29/17 21: Urine RBC (Auto) 79.0 /HPF (0.0-6.0) 10/29/17 21: U Epithel Cells (Auto) 1.0 /HPF (0-13.0) 10/29/17: Urine Bacteria (Auto) 2+ /HPF (Negative) 10/29/17 21:28 Urine Mucus 1+ /HPF 10/29/17 21:28 Valproic Acid 47.7 ug/mL (50-100) L 10/29/17 21:25
[2017-11-02] MEDS: DepaKENE Liq FEEDTUBE SCH ×2 (11:28→22:59)
[2017-11-02] MEDS: LIOTHYRONINE PO SCH (11:28)
[2017-11-02] MEDS: DULCOLAX PR SCH ×2 (11:29→14:10)
[2017-11-02] MEDS: TRILEPTAL PO SCH ×2 (11:29→22:59)
[2017-11-02] MEDS: KEPPRA 1,000 MG in NACL 0.9% 100 ML IV SCH ×2 (11:30→21:45)
[2017-11-02] MEDS: LEVAQUIN 750MG/150ML 750 MG/150 ML BAG IV SCH (11:30)
--- NOTE | 2017-11-02 14:00 | Progress Note ---
Assessment and Plan 1. Abd distention - continues to have BMs with soft light brown stool. Abd is softer, though still distended. - give daily suppository - If optimizing electrolytes and thyroid meds does not help mitigate this, and it is a chronic condition, pt may well warrant consideration of surgical management with colostomy or cecostomy to vent colon. - Hospitalist to optimize thyroid function and electrolytes - discussed with Dr. Johnson - have previoiusly discussed likelihood of chronic problems with sister, who states she though problem really started after last admission. Discussed surgical options, and she is willing to consider. 2. NGT - unsure if truly needed, and would consider D/C'ng and adv diet. - discussed with Dr. Johnson, nettie as re: nutritional support. Can give enterally if needed. Subjective Date of service: 11/02/17 Principal diagnosis: abd distention Interval history: Pt still having loose BMs periodically, per RN. Objective - Constitutional Vitals: Vital Signs - 12hr 11/02/17 11/02/17 11/02/17 04:40 05:24 07:53 Temperature 98.2 F Pulse Rate 67 104 H Respiratory 18 Rate Blood Pressure 174/113 Blood Pressure 174/113 [Right] O2 Sat by Pulse 96 Oximetry 11/02/17 11/02/17 09:03 12:11 Temperature 98.8 F 98.6 F Pulse Rate 74 106 H Respiratory 24 24 Rate Blood Pressure 187/108 Blood Pressure 178/98 [Right] O2 Sat by Pulse 98 95 Oximetry General appearance: Present: no acute distress - EENT Eyes: PERRL - Respiratory Respiratory effort: normal - Gastrointestinal General gastrointestinal: Present: soft, non-tender, distended (but softer), normal bowel sounds - Labs CBC & Chem 7: 10/31/17 05:37 10/31/17 05:37 Labs: Abnormal lab results 11/01/17 11/01/17 11/02/17 Range/Units 12:19 16:05 08:38 POC Glucose 241 H 231 H 217 H (70-105) 11/02/17 Range/Units 11:50 POC Glucose 184 H (70-105)
--- NOTE | 2017-11-02 18:03 | Progress Note ---
Assessment and Plan - Patient Problems (1) Colon distention Current Visit: Yes Status: Acute Plan to address problem: Patient does not show signs suggestive of acute process requiring surgical intervention. Need to monitor for signs of increased colonic distention which may force us to operate. In looking back at his records, this has been a chronic problem for him. There are multiple abdominal x-rays showing colonic distention that appears unchanged today. Discussed situation with sister, Lavonne at the bedside. My opinion is that this will not completely resolve, even with optimizing his medical condition. Therefore, we should consider the option of surgery. Of the two options (ostomy vs subtotal colectomy), I would favor subtotal colectomy. Having said this, we should try to optimize him for surgery. It would be best if we could use the PEG for tube feeds and get his TSH normalized. This will minimize his risk of omari-operative complications. If we are unable to feed him and/or correct his TSH, then we will consider surgery sooner, but the risks are higher. I have asked her to consider these possibilities and discuss them with her family. Will follow along. Time=25min Subjective Date of service: 11/02/17 Patient Reports: Positive: no new complaints, other (patient having BMs) Objective Vital Signs - 12hr 11/02/17 11/02/17 11/02/17 07:53 09:03 12:11 Temperature 98.8 F 98.6 F Pulse Rate 104 H 74 106 H Respiratory 24 24 Rate Blood Pressure 187/108 Blood Pressure 178/98 [Right] O2 Sat by Pulse 98 95 Oximetry 11/02/17 16:25 Temperature 98.7 F Pulse Rate 112 H Respiratory 24 Rate Blood Pressure 187/116 Blood Pressure [Right] O2 Sat by Pulse 95 Oximetry - General physical appearance no distress, no pain - Respiratory normal expansion, normal respiratory effort - Abdomen soft, not tender, bowel sounds normal, distended (less than before), not guarding, not rigid - Labs 10/31/17 05:37 10/31/17 05:37
[2017-11-03] MEDS: FLAGYL 500 MG/100 ML 500 MG/100 ML BAG IV SCH ×2 (05:55→15:37)
[2017-11-03] MEDS: SYNTHROID FEEDTUBE SCH (05:56)
[2017-11-03 06:35] LABS: Basophils % (Auto) 0.1 % (0.0-1.8); Eosinophils # (Auto) 0.1 K/mm3 (0.0-0.4); Eosinophils % (Auto) 1.5 % (0.0-4.3); Hematocrit 39.4 % (35.5-45.6); Hemoglobin 12.8 gm/dl (11.8-15.2); Lymphocytes # (Auto) 1.4 K/mm3 (1.2-5.4); Lymphocytes % (Auto) 16.5 % (13.4-35.0); Mean Corpuscular HGB Conc 32 % (32-34); Mean Corpuscular Hemoglobin 32 pg (28-32); Mean Corpuscular Volume 99 fl (84-94); Monocytes # (Auto) 1.3 K/mm3 (0.0-0.8); Monocytes % (Auto) 14.4 % (0.0-7.3); Platelet Count 413 K/mm3 (140-440); Red Blood Count 3.96 M/mm3 (3.65-5.03); Red Cell Distribution Width 13.6 % (13.2-15.2)
[2017-11-03 07:08] LABS: BUN/Creatinine Ratio 14; Blood Urea Nitrogen 17 mg/dL (9-20); Calcium 9.4 mg/dL (8.4-10.2); Hemolysis Index 12
[2017-11-03] MEDS: KEPPRA 1,000 MG in NACL 0.9% 100 ML IV SCH ×2 (09:00→23:59)
[2017-11-03] MEDS: DepaKENE Liq FEEDTUBE SCH (09:03)
[2017-11-03] MEDS: TRILEPTAL PO SCH (09:12)
[2017-11-03] MEDS: APRESOLINE IV PRN ×2 (09:33→18:29)
[2017-11-03] MEDS ORDERED: PANCREAZE DR 10,500 UNIT FEEDTUBE PRN (10:33)
[2017-11-03] MEDS ORDERED: SENOKOT S PO PRN (10:33)
[2017-11-03] MEDS ORDERED: SODIUM BICARBONATE FEEDTUBE PRN (10:33)
[2017-11-03] MEDS ORDERED: SIMPLE SYRUP FEEDTUBE PRN ×2 (10:33)
--- NOTE | 2017-11-03 10:41 | Gastroenterology Progress Note ---
Assessment and Plan - Patient Problems (1) Colonic inertia Current Visit: Yes Status: Acute Plan to address problem: - Agree with surgery notes that this is chronic and will not resolve (but can be controlled suboptimally) with laxatives - Will continue both OR (for stimulation) and per PEG laxatives for now - Emphasized turning patient every 2-3 hours to nursing - Will initiate tube feeds at low rate and observe, but no small bowel distention on CT, and NG output is essentially none. (2) Malnutrition of moderate degree ([place]: 60% to less than 75% of standard weight) Current Visit: Yes Status: Acute Plan to address problem: - Initiate trophic feeds at 10ml/hour today; advance on Sunday if tolerated. - NG tube removed as no gross output. - OK to use PEG for meds and flushes. Subjective Date of service: 11/03/17 Principal diagnosis: Colonic Inertia Interval history: The patient has had a watery/semisolid BM today in the diaper (brown without blood). No N/V witnessed, and the NG tube is aspirating no blood or secretions (<100ml). His PEG is working well per the nursing staff. Objective - Constitutional Vitals: Temp Pulse Resp BP Pulse Ox 98.9 F 111 H 18 180/90 94 11/03/17 08:33 11/03/17 09:33 11/03/17 08:33 11/03/17 09:33 11/03/17 08:34 General appearance: no acute distress - Respiratory Respiratory effort: normal Respiratory: bilateral: CTA - Cardiovascular Rhythm: regular Heart Sounds: Present: S1 & S2 - Gastrointestinal General gastrointestinal: Present: soft, non-tender, distended (Bowel sounds present), other (PEG in LUQ flushed and aspirated easily) - Labs CBC & Chem 7: 11/03/17 05:57 11/03/17 05:57 Labs: Laboratory Results - last 24 hr 11/02/17 11/02/17 11/02/17 08:38 11:50 16:31 WBC RBC Hgb Hct MCV MCH MCHC RDW Plt Count Lymph % (Auto) [place] % (Auto) Eos % (Auto) Baso % (Auto) Lymph # [place] # Eos # Baso # Seg Neutrophils % Seg Neutrophils # Sodium Potassium Chloride Carbon Dioxide Anion Gap BUN Creatinine Estimated GFR BUN/Creatinine Ratio Glucose POC Glucose 217 H 184 H 189 H Calcium 11/03/17 11/03/17 11/03/17 00:17 05:57 05:57 WBC 8.8 RBC 3.96 Hgb 12.8 Hct 39.4 MCV 99 H MCH 32 MCHC 32 RDW 13.6 Plt Count 413 Lymph % (Auto) 16.5 [place] % (Auto) 14.4 H Eos % (Auto) 1.5 Baso % (Auto) 0.1 Lymph # 1.4 [place] # 1.3 H Eos # 0.1 Baso # 0.0 Seg Neutrophils % 67.5 Seg Neutrophils # 5.9 Sodium 142 Potassium 3.3 L Chloride 99.3 Carbon Dioxide 26 Anion Gap 20 BUN 17 Creatinine 1.2 Estimated GFR > 60 BUN/Creatinine Ratio 14 Glucose 156 H POC Glucose 146 H Calcium 9.4
--- NOTE | 2017-11-03 11:22 | Progress Note ---
Assessment and Plan Assessment and plan: Colon distention/rectosigmoid inflammation. Surgery and GI following. CT showed diffuse colonic distention. KUB showed diffuse gaseous distention of the colon and mild constipation. Continue IV fluid hydration and electrolyte replacement. Continue empiric antibiotics of Flagyl and Levaquin. Initiate tube feeding at low rate and observe. Advance as tolerated. Diabetes mellitus type 2. Continue Accu-Cheks and sliding scale insulin. Seizure disorder. Continue medications. Changed Keppra to IV given the nothing by mouth status. Patient was noted left upper extremity and neck twitching.? Focal seizure. Neurology consultation. Hypertension. Change the hydralazine to IV. Given the nothing by mouth status Hypothyroidism. Synthroid daily History Interval history: Patient is somnolent. Hospitalist Physical - Constitutional Vitals: Temp Pulse Resp BP Pulse Ox 98.9 F 111 H 18 180/90 94 11/03/17 08:33 11/03/17 09:33 11/03/17 08:33 11/03/17 09:33 11/03/17 08:34 General appearance: Present: no acute distress - EENT Eyes: Present: PERRL, EOM intact ENT: hearing intact, clear oral mucosa, dentition normal - Neck Neck: Present: supple, normal ROM - Respiratory Respiratory effort: normal Respiratory: bilateral: CTA - Cardiovascular Rhythm: regular Heart Sounds: Present: S1 & S2. Absent: gallop, rub - Extremities Extremities: no ischemia, No edema, Full ROM - Abdominal General gastrointestinal: soft, non-tender, non-distended, normal bowel sounds - Integumentary Integumentary: Present: clear, warm, dry - Neurologic Neurologic: CNII-XII intact, moves all extremities Results - Labs CBC & Chem 7: 11/03/17 05:57 11/03/17 05:57 Labs: Laboratory Last Values WBC 8.8 K/mm3 (4.5-11.0) 11/03/17 05:57 RBC 3.96 M/mm3 (3.65-5.03) 11/03/17 05:57 Hgb 12.8 gm/dl (11.8-15.2) 11/03/17 05:57 Hct 39.4 % (35.5-45.6) 11/03/17 05:57 MCV 99 fl (84-94) H 11/03/17 05:57 MCH 32 pg (28-32) 11/03/17 05:57 MCHC 32 % (32-34) 11/03/17 05:57 RDW 13.6 % (13.2-15.2) 11/03/17 05:57 Plt Count 413 K/mm3 (140-440) 11/03/17 05:57 Lymph % (Auto) 16.5 % (13.4-35.0) 11/03/17 05:57 [place] % (Auto) 14.4 % (0.0-7.3) H 11/03/17 05:57 Eos % (Auto) 1.5 % (0.0-4.3) 11/03/17 05:57 Baso % (Auto) 0.1 % (0.0-1.8) 11/03/17 05:57 Lymph # 1.4 K/mm3 (1.2-5.4) 11/03/17 05:57 [place] # 1.3 K/mm3 (0.0-0.8) H 11/03/17 05:57 Eos # 0.1 K/mm3 (0.0-0.4) 11/03/17 05:57 Baso # 0.0 K/mm3 (0.0-0.1) 11/03/17 05:57 Add Manual Diff Complete 10/31/17 05:37 Total Counted 100 10/31/17 05:37 Seg Neutrophils % 67.5 % (40.0-70.0) 11/03/17 05:57 Seg Neuts % (Manual) 58.0 % (40.0-70.0) 10/31/17 05:37 Band Neutrophils % 2.0 % 10/31/17 05:37 Lymphocytes % (Manual) 17.0 % (13.4-35.0) 10/31/17 05:37 Reactive Lymphs % (Man) 0 % 10/31/17 05:37 Monocytes % (Manual) 18.0 % (0.0-7.3) H 10/31/17 05:37 Eosinophils % (Manual) 5.0 % (0.0-4.3) H 10/31/17 05:37 Basophils % (Manual) 0 % (0.0-1.8) 10/31/17 05:37 Metamyelocytes % 0 % 10/31/17 05:37 Myelocytes % 0 % 10/31/17 05:37 Promyelocytes % 0 % 10/31/17 05:37 Blast Cells % 0 % 10/31/17 05:37 Nucleated RBC % 1.0 % (0.0-0.9) H 10/31/17 05:37 Seg Neutrophils # 5.9 K/mm3 (1.8-7.7) 11/03/17 05:57 Seg Neutrophils # Man 5.6 K/mm3 (1.8-7.7) 10/31/17 05:37 Band Neutrophils # 0.2 K/mm3 10/31/17 05:37 Lymphocytes # (Manual) 1.6 K/mm3 (1.2-5.4) 10/31/17 05:37 Abs React Lymphs (Man) 0.0 K/mm3 10/31/17 05:37 Monocytes # (Manual) 1.7 K/mm3 (0.0-0.8) H 10/31/17 05:37 Eosinophils # (Manual) 0.5 K/mm3 (0.0-0.4) H 10/31/17 05:37 Basophils # (Manual) 0.0 K/mm3 (0.0-0.1) 10/31/17 05:37 Metamyelocytes # 0.0 K/mm3 10/31/17 05:37 Myelocytes # 0.0 K/mm3 10/31/17 05:37 Promyelocytes # 0.0 K/mm3 10/31/17 05:37 Blast Cells # 0.0 K/mm3 10/31/17 05:37 WBC Morphology Not Reportable 10/31/17 05:37 Hypersegmented Neuts Not Reportable 10/31/17 05:37 Hyposegmented Neuts Not Reportable 10/31/17 05:37 Hypogranular Neuts Not Reportable 10/31/17 05:37 Smudge Cells Not Reportable 10/31/17 05:37 Toxic Granulation Not Reportable 10/31/17 05:37 Toxic Vacuolation Not Reportable 10/31/17 05:37 Dohle Bodies Not Reportable 10/31/17 05:37 Pelger-Huet Anomaly Not Reportable 10/31/17 05:37 Kaitlyn Rods Not Reportable 10/31/17 05:37 Platelet Estimate Consistent w auto 10/31/17 05:37 Clumped Platelets Not Reportable 10/31/17 05:37 Plt Clumps, EDTA Not Reportable 10/31/17 05:37 Large Platelets Not Reportable 10/31/17 05:37 Giant Platelets Not Reportable 10/31/17 05:37 Platelet Satelliting Not Reportable 10/31/17 05:37 Plt Morphology Comment Not Reportable 10/31/17 05:37 RBC Morphology Not Reportable 10/31/17 05:37 Dimorphic RBCs Not Reportable 10/31/17 05:37 Polychromasia Rare 10/31/17 05:37 Hypochromasia Not Reportable 10/31/17 05:37 Poikilocytosis Not Reportable 10/31/17 05:37 Anisocytosis Not Reportable 10/31/17 05:37 Microcytosis Not Reportable 10/31/17 05:37 Macrocytosis Not Reportable 10/31/17 05:37 Spherocytes Not Reportable 10/31/17 05:37 Pappenheimer Bodies Not Reportable 10/31/17 05:37 Sickle Cells Not Reportable 10/31/17 05:37 Target Cells Not Reportable 10/31/17 05:37 Tear Drop Cells Not Reportable 10/31/17 05:37 Ovalocytes Not Reportable 10/31/17 05:37 Helmet Cells Not Reportable 10/31/17 05:37 Lo-Blackwell Bodies Not Reportable 10/31/17 05:37 [place] Rings Not Reportable 10/31/17 05:37 Rea Cells Not Reportable 10/31/17 05:37 Bite Cells Not Reportable 10/31/17 05:37 Crenated Cell Not Reportable 10/31/17 05:37 Elliptocytes Not Reportable 10/31/17 05:37 Acanthocytes (Spur) Not Reportable 10/31/17 05:37 Rouleaux Not Reportable 10/31/17 05:37 Hemoglobin C Crystals Not Reportable 10/31/17 05:37 Schistocytes Not Reportable 10/31/17 05:37 Malaria parasites Not Reportable 10/31/17 05:37 Dionisio Bodies Not Reportable 10/31/17 05:37 Hem Pathologist Commnt No 10/31/17 05:37 Sodium 142 mmol/L (137-145) 11/03/17 05:57 Potassium 3.3 mmol/L (3.6-5.0) L 11/03/17 05:57 Chloride 99.3 mmol/L (98-107) 11/03/17 05:57 Carbon Dioxide 26 mmol/L (22-30) 11/03/17 05:57 Anion Gap 20 mmol/L 11/03/17 05:57 BUN 17 mg/dL (9-20) 11/03/17 05:57 Creatinine 1.2 mg/dL (0.8-1.5) 11/03/17 05:57 Estimated GFR > 60 ml/min 11/03/17 05:57 BUN/Creatinine Ratio 14 % 11/03/17 05:57 Glucose 156 mg/dL (75-100) H 11/03/17 05:57 POC Glucose 146 (70-105) H 11/03/17 00:17 Calcium 9.4 mg/dL (8.4-10.2) 11/03/17 05:57 Total Bilirubin 0.20 mg/dL (0.1-1.2) 10/29/17 21:25 AST 18 units/L (5-40) 10/29/17 21:25 ALT 18 units/L (7-56) 10/29/17 21:25 Alkaline Phosphatase 143 units/L (35-129) H 10/29/17 21:25 Total Protein 6.4 g/dL (6.3-8.2) 10/29/17 21:25 Albumin 3.8 g/dL (3.9-5) L 10/29/17 21:25 Albumin/Globulin Ratio 1.5 % 10/29/17 21:25 Lipase 17 units/L (13-60) 10/29/17 21:25 TSH 41.620 mlU/mL (0.270-4.200) H 10/29/17 21:25 Free T4 0.70 ng/dL (0.76-1.46) L 10/29/17 21:25 Urine Color [place] (Yellow) 10/29/17 21:28 Urine Turbidity Clear (Clear) 10/29/17 21:28 Urine pH 5.0 (5.0-7.0) 10/29/17 21:28 Ur Specific [place] 1.031 (1.003-1.030) H 10/29/17 21: Urine Protein 100 mg/dl mg/dL (Negative) 10/29/17: Urine Glucose (UA) >=500 mg/dL (Negative) 10/29/17: Urine Ketones Tr mg/dL (Negative) 10/29/17: Urine Blood Neg (Negative) 10/29/17: Urine Nitrite Neg (Negative) 10/29/17: Urine Bilirubin Neg (Negative) 10/29/17: Urine Urobilinogen 2.0 mg/dL (<2.0) 10/29/17: Ur Leukocyte Esterase Mod (Negative) 10/29/17: Urine WBC (Auto) 38.0 /HPF (0.0-6.0) H 10/29/17: Urine RBC (Auto) 79.0 /HPF (0.0-6.0) 10/29/17: U Epithel Cells (Auto) 1.0 /HPF (0-13.0) 10/29/17: Urine Bacteria (Auto) 2+ /HPF (Negative) 10/29/17: Urine Mucus 1+ /HPF 10/29/17 21: Valproic Acid 47.7 ug/mL (50-100) L 10/29/17:
--- NOTE | 2017-11-03 11:53 | Consultation ---
History of Present Illness Consult date: 11/03/17 History of present illness: patient at this point having status seizures that are focal left face/ arm / leg review of chart shows there is prior hx of seizures agree with alessia will add vimpat and have ordered CT of brain wo contrast plan to follow Thanks Past History Past Medical History: diabetes, hypertension, hypothyroidism, seizures Past Surgical History: Other (PEG placement) Social history: denies: smoking, alcohol abuse, IV drug use Family history: no significant family history Medications and Allergies Allergies Allergy/AdvReac Type Severity Reaction Status Date / Time No Known Allergies Allergy Verified 10/18/17 18:55 Home Medications Medication Instructions Recorded Confirmed Last Taken Type Baclofen [Lioresal] 5 mg PO TID 10/18/17 10/30/17 Unknown History Levothyroxine [Synthroid] 200 mcg NGTUBE QAM 10/18/17 10/30/17 Unknown History Liothyronine Sodium [Cytomel] 5 mcg NGTUBE QAM 10/18/17 11/01/17 10/30/17 History OXcarbazepine [Trileptal] 900 mg NGTUBE BID 10/18/17 10/30/17 Unknown History Valproic Acid (As Sodium Salt) 20 ml NGTUBE Q12H 10/18/17 10/30/17 Unknown History [Depakene] amLODIPine [Norvasc] 10 mg NGTUBE DAILY 10/18/17 10/30/17 Unknown History levETIRAcetam [Keppra TAB] 1,000 mg NGTUBE BID 10/18/17 10/30/17 Unknown History Insulin Aspart [Novolog Flexpen] See Protocol SQ Q6H 30 Days 10/26/17 10/30/17 Unknown Rx insuln.pen Insulin NPH/Regular [Novolin 70/30] 18 unit SQ BIDDIAB 30 Days ml 10/26/1703/11 Unknown Rx hydrALAZINE [Apresoline TAB] 25 mg PO Q8HR #90 tablet 10/26/17 10/30/17 Unknown Rx Active Meds: Active Medications Acetaminophen (Tylenol) 650 mg PO Q4H PRN PRN Reason: Pain MILD(1-3)/Fever >100.5/MARQUEZ Last Admin: 11/02/17 05:46 Dose: 650 mg Lipase/Protease/Amylase (Pancreaze Dr 10,500 Unit) 1 each FEEDTUBE PRN PRN PRN Reason: For Clogged Feeding Tube Bisacodyl (Dulcolax) 10 mg NM QDAY [facility] Stop: 11/07/17 14:59 Last Admin: 11/02/17 14:10 Dose: Not Given Hydralazine HCl (Apresoline) 20 mg IV Q4HR PRN PRN Reason: Blood Pressure Last Admin: 11/03/17 09:33 Dose: 20 mg Levofloxacin/Dextrose (Levaquin 750mg/150ml) 750 mg in 150 mls @ 100 mls/hr IV Q24HR [facility] PRN Reason: Protocol Last Admin: 11/02/17 11:30 Dose: 100 mls/hr Metronidazole (Flagyl 500 Mg/100 Ml) 500 mg in 100 mls @ 200 mls/hr IV Q8HR [facility] Last Admin: 11/03/17 05:55 Dose: 200 mls/hr Levetiracetam 1,000 mg/ Sodium (Chloride) 110 mls @ 440 mls/hr IV Q12HR [facility] Last Admin: 11/03/17 09:00 Dose: 440 mls/hr Levothyroxine Sodium (Synthroid) 200 mcg FEEDTUBE DAILY@0600 [facility] Last Admin: 11/03/17 05:56 Dose: Not Given Ondansetron HCl (Zofran) 4 mg IV Q8H PRN PRN Reason: N/V unrelieved by Amber Oxcarbazepine (Trileptal) 900 mg PO BID [facility] Last Admin: 11/03/17 09:12 Dose: 900 mg Senna/Docusate Sodium (Senokot S) 1 tab PO Q12HR [facility] Simple Syrup (Simple Syrup) 15 ml FEEDTUBE PRN PRN PRN Reason: Hypoglycemia Simple Syrup (Simple Syrup) 30 ml FEEDTUBE PRN PRN PRN Reason: Hypoglycemia Sodium Bicarbonate (Sodium Bicarbonate) 325 mg FEEDTUBE PRN PRN PRN Reason: For Clogged Feeding Tube Valproic Acid (Depakene Liq) 1,000 mg FEEDTUBE Q12HR [facility] Last Admin: 11/03/17 09:03 Dose: 1,000 mg Physical Examination - Vital Signs Vital Signs: Vital Signs Pulse Resp Pulse Ox 105 H 24 95 10/29/17 20:50 10/29/17 20:50 10/29/17 20:50 Results - Laboratory Findings CBC and BMP: 11/03/17 05:57 11/03/17 05:57 Abnormal Lab Findings: Abnormal Labs 10/29/17 10/29/17 10/29/17 21:25 21:25 21:25 MCV 100 H MCH 33 H [place] % (Auto) [place] # Seg Neuts % (Manual) 74.0 H Lymphocytes % (Manual) 9.0 L Monocytes % (Manual) 12.0 H Eosinophils % (Manual) Nucleated RBC % Lymphocytes # (Manual) 0.8 L Monocytes # (Manual) 1.0 H Eosinophils # (Manual) Sodium 134 L Potassium Chloride 92.5 L BUN 29 H Glucose 329 H POC Glucose Alkaline Phosphatase 143 H Albumin 3.8 L TSH Free T4 Ur Specific [place] Urine WBC (Auto) Valproic Acid 47.7 L 10/29/17 10/29/17 10/30/17 21:25 21:28 08:44 MCV MCH [place] % (Auto) [place] # Seg Neuts % (Manual) Lymphocytes % (Manual) Monocytes % (Manual) Eosinophils % (Manual) Nucleated RBC % Lymphocytes # (Manual) Monocytes # (Manual) Eosinophils # (Manual) Sodium Potassium Chloride BUN Glucose POC Glucose 313 H Alkaline Phosphatase Albumin TSH 41.620 H Free T4 0.70 L Ur Specific [place] 1.031 H Urine WBC (Auto) 38.0 H Valproic Acid 10/30/17 10/30/17 10/30/17 12:15 17:04 23:13 MCV MCH [place] % (Auto) [place] # Seg Neuts % (Manual) Lymphocytes % (Manual) Monocytes % (Manual) Eosinophils % (Manual) Nucleated RBC % Lymphocytes # (Manual) Monocytes # (Manual) Eosinophils # (Manual) Sodium Potassium Chloride BUN Glucose POC Glucose 274 H 266 H 234 H Alkaline Phosphatase Albumin TSH Free T4 Ur Specific [place] Urine WBC (Auto) Valproic Acid 10/31/17 10/31/17 10/31/17 05:37 05:37 08:01 MCV 100 H MCH 33 H [place] % (Auto) [place] # Seg Neuts % (Manual) Lymphocytes % (Manual) Monocytes % (Manual) 18.0 H Eosinophils % (Manual) 5.0 H Nucleated RBC % 1.0 H Lymphocytes # (Manual) Monocytes # (Manual) 1.7 H Eosinophils # (Manual) 0.5 H Sodium Potassium Chloride 94.3 L BUN 27 H Glucose 253 H POC Glucose 241 H Alkaline Phosphatase Albumin TSH Free T4 Ur Specific [place] Urine WBC (Auto) Valproic Acid 10/31/17 10/31/17 10/31/17 11:36 16:19 21:58 MCV MCH [place] % (Auto) [place] # Seg Neuts % (Manual) Lymphocytes % (Manual) Monocytes % (Manual) Eosinophils % (Manual) Nucleated RBC % Lymphocytes # (Manual) Monocytes # (Manual) Eosinophils # (Manual) Sodium Potassium Chloride BUN Glucose POC Glucose 233 H 217 H 185 H Alkaline Phosphatase Albumin TSH Free T4 Ur Specific [place] Urine WBC (Auto) Valproic Acid 11/01/17 11/01/17 11/01/17 06:31 12:19 16:05 MCV MCH [place] % (Auto) [place] # Seg Neuts % (Manual) Lymphocytes % (Manual) Monocytes % (Manual) Eosinophils % (Manual) Nucleated RBC % Lymphocytes # (Manual) Monocytes # (Manual) Eosinophils # (Manual) Sodium Potassium Chloride BUN Glucose POC Glucose 220 H 241 H 231 H Alkaline Phosphatase Albumin TSH Free T4 Ur Specific [place] Urine WBC (Auto) Valproic Acid 11/02/17 11/02/17 11/02/17 08:38 11:50 16:31 MCV MCH [place] % (Auto) [place] # Seg Neuts % (Manual) Lymphocytes % (Manual) Monocytes % (Manual) Eosinophils % (Manual) Nucleated RBC % Lymphocytes # (Manual) Monocytes # (Manual) Eosinophils # (Manual) Sodium Potassium Chloride BUN Glucose POC Glucose 217 H 184 H 189 H Alkaline Phosphatase Albumin TSH Free T4 Ur Specific [place] Urine WBC (Auto) Valproic Acid 11/03/17 11/03/17 11/03/17 00:17 05:57 05:57 MCV 99 H MCH [place] % (Auto) 14.4 H [place] # 1.3 H Seg Neuts % (Manual) Lymphocytes % (Manual) Monocytes % (Manual) Eosinophils % (Manual) Nucleated RBC % Lymphocytes # (Manual) Monocytes # (Manual) Eosinophils # (Manual) Sodium Potassium 3.3 L Chloride BUN Glucose 156 H POC Glucose 146 H Alkaline Phosphatase Albumin TSH Free T4 Ur Specific [place] Urine WBC (Auto) Valproic Acid
--- NOTE | 2017-11-03 13:19 | Cat Scan Report ---
CT HEAD WITHOUT CONTRAST: 10/30/17 03:25:00 CLINICAL: Altered mental status and persistent tic. TECHNIQUE: 2.5-mm noncontrast scans. COMPARISON:10/18/17 FINDINGS: Stable marked global cortical atrophy with sulcal enlargement and ventricular enlargement. Bilateral frontal lobe and left temporal lobe encephalomalacia. Stable periventricular white matter hypodensities, greater on the right than the left. No new hypodensity. No mass or mass effect. No hemorrhage, edema or extra-axial collection. The sinuses are clear. Normal orbits and soft tissues. The calvarium and skull base are intact. 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 No acute change.
[2017-11-03] MEDS: VIMPAT 100 MG in NACL 0.9% 100 ML IV SCH (13:56)
--- NOTE | 2017-11-03 15:10 | Progress Note ---
Assessment and Plan - Patient Problems (1) Colon distention Current Visit: Yes Status: Acute Plan to address problem: Patient does not show signs suggestive of acute process requiring surgical intervention. Need to monitor for signs of increased colonic distention which may force us to operate. In looking back at his records, this has been a chronic problem for him. Abdomen is distended again as expected. Agree with Dr. Kurtz. Continue to maximize conservative measures. As he is having bowel function , continue tube feeds. Discussed situation with sister, Lavonne at the bedside on 11/02. My opinion is that this will not completely resolve, even with optimizing his medical condition. Therefore, we should consider the option of surgery. Of the two options (ostomy vs subtotal colectomy), I would favor subtotal colectomy. Having said this, we should try to optimize him for surgery. It would be best if we could use the PEG for tube feeds and get his TSH normalized. This will minimize his risk of omari-operative complications. If we are unable to feed him and/or correct his TSH, then we will consider surgery sooner, but the risks are higher. I have asked her to consider these possibilities and discuss them with her family. Will follow along. Time=15min Subjective Date of service: 11/03/17 Patient Reports: Positive: other (no new issues) Objective Vital Signs - 12hr 11/03/17 11/03/17 11/03/17 06:06 08:33 08:34 Temperature 98.5 F 98.9 F Pulse Rate 96 H 104 H 105 H Respiratory 22 18 Rate Blood Pressure 168/98 179/88 O2 Sat by Pulse 95 93 94 Oximetry 11/03/17 09:33 Temperature Pulse Rate 111 H Respiratory Rate Blood Pressure 180/90 O2 Sat by Pulse Oximetry - General physical appearance well developed, well nourished, no distress, no pain, other (multiple facial twitches) - Abdomen soft, not tender, distended (more than yesterday.), not guarding, not rigid - Integumentary no rash - Labs 11/03/17 05:57 11/03/17 05:57 Diabetes panel 11/03/17 Range/Units 05:57 Sodium 142 (137-145) mmol/L Potassium 3.3 L (3.6-5.0) mmol/L Chloride 99.3 (98-107) mmol/L Carbon Dioxide 26 (22-30) mmol/L BUN 17 (9-20) mg/dL Creatinine 1.2 (0.8-1.5) mg/dL Glucose 156 H (75-100) mg/dL Calcium 9.4 (8.4-10.2) mg/dL Calcium panel 11/03/17 Range/Units 05:57 Calcium 9.4 (8.4-10.2) mg/dL Pituitary panel 11/03/17 Range/Units 05:57 Sodium 142 (137-145) mmol/L Potassium 3.3 L (3.6-5.0) mmol/L Chloride 99.3 (98-107) mmol/L Carbon Dioxide 26 (22-30) mmol/L BUN 17 (9-20) mg/dL Creatinine 1.2 (0.8-1.5) mg/dL Glucose 156 H (75-100) mg/dL Calcium 9.4 (8.4-10.2) mg/dL Adrenal panel 11/03/17 Range/Units 05:57 Sodium 142 (137-145) mmol/L Potassium 3.3 L (3.6-5.0) mmol/L Chloride 99.3 (98-107) mmol/L Carbon Dioxide 26 (22-30) mmol/L BUN 17 (9-20) mg/dL Creatinine 1.2 (0.8-1.5) mg/dL Glucose 156 H (75-100) mg/dL Calcium 9.4 (8.4-10.2) mg/dL
[2017-11-03] MEDS: LEVAQUIN 750MG/150ML 750 MG/150 ML BAG IV SCH (15:37)
[2017-11-03] MEDS: DULCOLAX PR SCH (15:37)
[2017-11-04] MEDS: TRILEPTAL PO SCH ×3 (00:01→21:22)
[2017-11-04] MEDS: SENOKOT S PO SCH ×3 (00:02→21:21)
[2017-11-04] MEDS: VIMPAT 100 MG in NACL 0.9% 100 ML IV SCH (03:00)
[2017-11-04] MEDS: SYNTHROID FEEDTUBE SCH (05:46)
[2017-11-04] MEDS: FLAGYL 500 MG/100 ML 500 MG/100 ML BAG IV SCH ×4 (05:46→21:18)
[2017-11-04] MEDS ORDERED: PANCREAZE DR 10,500 UNIT FEEDTUBE PRN (08:16)
[2017-11-04] MEDS ORDERED: SODIUM BICARBONATE FEEDTUBE PRN (08:16)
[2017-11-04] MEDS ORDERED: SIMPLE SYRUP FEEDTUBE PRN ×2 (08:16)
[2017-11-04] MEDS: LIOTHYRONINE PO SCH ×2 (08:29→10:00)
[2017-11-04] MEDS: DepaKENE Liq FEEDTUBE SCH ×3 (10:00→21:22)
[2017-11-04] MEDS: KEPPRA 1,000 MG in NACL 0.9% 100 ML IV SCH (10:01)
[2017-11-04] MEDS: LEVAQUIN 750MG/150ML 750 MG/150 ML BAG IV SCH (10:03)
[2017-11-04] MEDS: DULCOLAX PR SCH (10:05)
[2017-11-04] MEDS ORDERED: NACL 0.9% 250ML 250 ML ONE (10:44)
--- NOTE | 2017-11-04 12:12 | Consultation ---
History of Present Illness Consult date: 11/04/17 History of present illness: I went over with the director of the pharmacy the lack of available IV form of vimpat and it is acceptable now to use po vimpat through tube as it is oral absorbed well plan EEG sunday Past History Past Medical History: diabetes, hypertension, hypothyroidism, seizures Past Surgical History: Other (PEG placement) Social history: denies: smoking, alcohol abuse, IV drug use Family history: no significant family history Medications and Allergies Allergies Allergy/AdvReac Type Severity Reaction Status Date / Time No Known Allergies Allergy Verified 10/18/17 18:55 Home Medications Medication Instructions Recorded Confirmed Last Taken Type Baclofen [Lioresal] 5 mg PO TID 10/18/17 10/30/17 Unknown History Levothyroxine [Synthroid] 200 mcg NGTUBE QAM 10/18/17 10/30/17 Unknown History Liothyronine Sodium [Cytomel] 5 mcg NGTUBE QAM 10/18/17 11/01/17 10/30/17 History OXcarbazepine [Trileptal] 900 mg NGTUBE BID 10/18/17 10/30/17 Unknown History Valproic Acid (As Sodium Salt) 20 ml NGTUBE Q12H 10/18/17 10/30/17 Unknown History [Depakene] amLODIPine [Norvasc] 10 mg NGTUBE DAILY 10/18/17 10/30/17 Unknown History levETIRAcetam [Keppra TAB] 1,000 mg NGTUBE BID 10/18/17 10/30/17 Unknown History Insulin Aspart [Novolog Flexpen] See Protocol SQ Q6H 30 Days 10/26/17 10/30/17 Unknown Rx insuln.pen Insulin NPH/Regular [Novolin 70/30] 18 unit SQ BIDDIAB 30 Days ml 10/26/1703/11 Unknown Rx hydrALAZINE [Apresoline TAB] 25 mg PO Q8HR #90 tablet 10/26/17 10/30/17 Unknown Rx Active Meds: Active Medications Acetaminophen (Tylenol) 650 mg PO Q4H PRN PRN Reason: Pain MILD(1-3)/Fever >100.5/MARQUEZ Last Admin: 11/02/17 05:46 Dose: 650 mg Lipase/Protease/Amylase (Pancrelavellee Dr 10,500 Unit) 1 each FEEDTUBE PRN PRN PRN Reason: For Clogged Feeding Tube Bisacodyl (Dulcolax) 10 mg OR QDAY COUNTS INCLUDE 234 BEDS AT THE [facility] Stop: 11/07/17 14:59 Last Admin: 11/04/17 10:05 Dose: 10 mg Hydralazine HCl (Apresoline) 20 mg IV Q4HR PRN PRN Reason: Blood Pressure Last Admin: 11/03/17 18:29 Dose: 20 mg Levofloxacin/Dextrose (Levaquin 750mg/150ml) 750 mg in 150 mls @ 100 mls/hr IV Q24HR COUNTS INCLUDE 234 BEDS AT THE [facility] PRN Reason: Protocol Last Admin: 11/04/17 10:03 Dose: 100 mls/hr Metronidazole (Flagyl 500 Mg/100 Ml) 500 mg in 100 mls @ 200 mls/hr IV Q8HR COUNTS INCLUDE 234 BEDS AT THE [facility] Last Admin: 11/04/17 05:46 Dose: 200 mls/hr Levetiracetam 1,000 mg/ Sodium (Chloride) 110 mls @ 440 mls/hr IV Q12HR COUNTS INCLUDE 234 BEDS AT THE [facility] Last Admin: 11/04/17 10:01 Dose: 440 mls/hr Lacosamide (Vimpat) 100 mg PO Q12H COUNTS INCLUDE 234 BEDS AT THE [facility] Levothyroxine Sodium (Synthroid) 200 mcg FEEDTUBE DAILY@0600 COUNTS INCLUDE 234 BEDS AT THE [facility] Last Admin: 11/04/17 05:46 Dose: 200 mcg Ondansetron HCl (Zofran) 4 mg IV Q8H PRN PRN Reason: N/V unrelieved by Regalex Oxcarbazepine (Trileptal) 900 mg PO BID COUNTS INCLUDE 234 BEDS AT THE [facility] Last Admin: 11/04/17 10:01 Dose: 900 mg Senna/Docusate Sodium (Senokot S) 1 tab PO Q12HR COUNTS INCLUDE 234 BEDS AT THE [facility] Last Admin: 11/04/17 00:02 Dose: 1 tab Simple Syrup (Simple Syrup) 15 ml FEEDTUBE PRN PRN PRN Reason: Hypoglycemia Simple Syrup (Simple Syrup) 30 ml FEEDTUBE PRN PRN PRN Reason: Hypoglycemia Sodium Bicarbonate (Sodium Bicarbonate) 325 mg FEEDTUBE PRN PRN PRN Reason: For Clogged Feeding Tube Valproic Acid (Depakene Liq) 1,000 mg FEEDTUBE Q12HR COUNTS INCLUDE 234 BEDS AT THE [facility] Last Admin: 11/04/17 00:00 Dose: 1,000 mg Physical Examination - Vital Signs Vital Signs: Vital Signs Pulse Resp Pulse Ox 105 H 24 95 10/29/17 20:50 10/29/17 20:50 10/29/17 20:50 Results - Laboratory Findings CBC and BMP: 11/03/17 05:57 11/03/17 05:57 Abnormal Lab Findings: Abnormal Labs 10/29/17 10/29/17 10/29/17 21:25 21:25 21:25 MCV 100 H MCH 33 H [place] % (Auto) [place] # Seg Neuts % (Manual) 74.0 H Lymphocytes % (Manual) 9.0 L Monocytes % (Manual) 12.0 H Eosinophils % (Manual) Nucleated RBC % Lymphocytes # (Manual) 0.8 L Monocytes # (Manual) 1.0 H Eosinophils # (Manual) Sodium 134 L Potassium Chloride 92.5 L BUN 29 H Glucose 329 H POC Glucose Alkaline Phosphatase 143 H Albumin 3.8 L TSH Free T4 Ur Specific [place] Urine WBC (Auto) Valproic Acid 47.7 L 10/29/17 10/29/17 10/30/17 21:25 21:28 08:44 MCV MCH [place] % (Auto) [place] # Seg Neuts % (Manual) Lymphocytes % (Manual) Monocytes % (Manual) Eosinophils % (Manual) Nucleated RBC % Lymphocytes # (Manual) Monocytes # (Manual) Eosinophils # (Manual) Sodium Potassium Chloride BUN Glucose POC Glucose 313 H Alkaline Phosphatase Albumin TSH 41.620 H Free T4 0.70 L Ur Specific [place] 1.031 H Urine WBC (Auto) 38.0 H Valproic Acid 10/30/17 10/30/17 10/30/17 12:15 17:04 23:13 MCV MCH [place] % (Auto) [place] # Seg Neuts % (Manual) Lymphocytes % (Manual) Monocytes % (Manual) Eosinophils % (Manual) Nucleated RBC % Lymphocytes # (Manual) Monocytes # (Manual) Eosinophils # (Manual) Sodium Potassium Chloride BUN Glucose POC Glucose 274 H 266 H 234 H Alkaline Phosphatase Albumin TSH Free T4 Ur Specific [place] Urine WBC (Auto) Valproic Acid 10/31/17 10/31/17 10/31/17 05:37 05:37 08:01 MCV 100 H MCH 33 H [place] % (Auto) [place] # Seg Neuts % (Manual) Lymphocytes % (Manual) Monocytes % (Manual) 18.0 H Eosinophils % (Manual) 5.0 H Nucleated RBC % 1.0 H Lymphocytes # (Manual) Monocytes # (Manual) 1.7 H Eosinophils # (Manual) 0.5 H Sodium Potassium Chloride 94.3 L BUN 27 H Glucose 253 H POC Glucose 241 H Alkaline Phosphatase Albumin TSH Free T4 Ur Specific [place] Urine WBC (Auto) Valproic Acid 10/31/17 10/31/17 10/31/17 11:36 16:19 21:58 MCV MCH [place] % (Auto) [place] # Seg Neuts % (Manual) Lymphocytes % (Manual) Monocytes % (Manual) Eosinophils % (Manual) Nucleated RBC % Lymphocytes # (Manual) Monocytes # (Manual) Eosinophils # (Manual) Sodium Potassium Chloride BUN Glucose POC Glucose 233 H 217 H 185 H Alkaline Phosphatase Albumin TSH Free T4 Ur Specific [place] Urine WBC (Auto) Valproic Acid 11/01/17 11/01/17 11/01/17 06:31 12:19 16:05 MCV MCH [place] % (Auto) [place] # Seg Neuts % (Manual) Lymphocytes % (Manual) Monocytes % (Manual) Eosinophils % (Manual) Nucleated RBC % Lymphocytes # (Manual) Monocytes # (Manual) Eosinophils # (Manual) Sodium Potassium Chloride BUN Glucose POC Glucose 220 H 241 H 231 H Alkaline Phosphatase Albumin TSH Free T4 Ur Specific [place] Urine WBC (Auto) Valproic Acid 11/02/17 11/02/17 11/02/17 08:38 11:50 16:31 MCV MCH [place] % (Auto) [place] # Seg Neuts % (Manual) Lymphocytes % (Manual) Monocytes % (Manual) Eosinophils % (Manual) Nucleated RBC % Lymphocytes # (Manual) Monocytes # (Manual) Eosinophils # (Manual) Sodium Potassium Chloride BUN Glucose POC Glucose 217 H 184 H 189 H Alkaline Phosphatase Albumin TSH Free T4 Ur Specific [place] Urine WBC (Auto) Valproic Acid 11/03/17 11/03/17 11/03/17 00:17 05:57 05:57 MCV 99 H MCH [place] % (Auto) 14.4 H [place] # 1.3 H Seg Neuts % (Manual) Lymphocytes % (Manual) Monocytes % (Manual) Eosinophils % (Manual) Nucleated RBC % Lymphocytes # (Manual) Monocytes # (Manual) Eosinophils # (Manual) Sodium Potassium 3.3 L Chloride BUN Glucose 156 H POC Glucose 146 H Alkaline Phosphatase Albumin TSH Free T4 Ur Specific [place] Urine WBC (Auto) Valproic Acid 11/03/17 11/03/17 11/04/17 12:02 17:19 01:24 MCV MCH [place] % (Auto) [place] # Seg Neuts % (Manual) Lymphocytes % (Manual) Monocytes % (Manual) Eosinophils % (Manual) Nucleated RBC % Lymphocytes # (Manual) Monocytes # (Manual) Eosinophils # (Manual) Sodium Potassium Chloride BUN Glucose POC Glucose 166 H 126 H 167 H Alkaline Phosphatase Albumin TSH Free T4 Ur Specific [place] Urine WBC (Auto) Valproic Acid 11/04/17 08:58 MCV MCH [place] % (Auto) [place] # Seg Neuts % (Manual) Lymphocytes % (Manual) Monocytes % (Manual) Eosinophils % (Manual) Nucleated RBC % Lymphocytes # (Manual) Monocytes # (Manual) Eosinophils # (Manual) Sodium Potassium Chloride BUN Glucose POC Glucose 135 H Alkaline Phosphatase Albumin TSH Free T4 Ur Specific [place] Urine WBC (Auto) Valproic Acid
--- NOTE | 2017-11-04 12:25 | Gastroenterology Progress Note ---
Assessment and Plan - Patient Problems (1) Colonic inertia Current Visit: Yes Status: Acute Plan to address problem: - Agree with surgery notes that this is chronic and will not resolve (but can be controlled suboptimally) with laxatives - Will continue both SC (for stimulation) and per PEG laxatives for now - Emphasized turning patient every 2-3 hours to nursing - Will initiate tube feeds at low rate and and advance to goal as no small bowel distention on CT, and NG output was essentially none - Since the patient is clinically stable, will sign off; please call if needed; agree with plan as outlined by surgery if family consents to colectomy or ostomy. (2) Malnutrition of moderate degree ([place]orpe: 60% to less than 75% of standard weight) Current Visit: Yes Status: Acute Plan to address problem: - Continue feeds at 10ml/hour today; advance to goal per protocol. - NG tube removed as no gross output. - OK to use PEG for meds and flushes. Subjective Date of service: 11/04/17 Principal diagnosis: Colonic Inertia Interval history: The patient had two large liquid BMs yesterday. He had no blood in the stool. He is tolerating tube feeds well without any significant residual. He has witnessed vomiting. Objective - Constitutional Vitals: Temp Pulse Resp BP Pulse Ox 98.6 F 86 22 152/66 93 11/04/17 09:47 11/04/17 09:47 11/04/17 09:47 11/04/17 09:47 11/04/17 09:47 General appearance: mild distress, other (Responds to name) - Respiratory Respiratory effort: normal Respiratory: bilateral: CTA - Cardiovascular Rhythm: regular Heart Sounds: Present: S1 & S2 - Gastrointestinal General gastrointestinal: Present: soft, non-tender, distended (Mild, and improved from yesterday), other (PEG in LUQ is CDI) - Labs CBC & Chem 7: 11/03/17 05:57 11/03/17 05:57 Labs: Laboratory Results - last 24 hr 11/03/17 11/03/17 11/04/17 12:02 17:19 01:24 POC Glucose 166 H 126 H 167 H 11/04/17 08:58 POC Glucose 135 H
--- NOTE | 2017-11-04 12:35 | Progress Note ---
Assessment and Plan Assessment and plan: Colon distention/rectosigmoid inflammation. Surgery and GI following. CT showed diffuse colonic distention. KUB showed diffuse gaseous distention of the colon and mild constipation. Continue IV fluid hydration and electrolyte replacement. Continue empiric antibiotics of Flagyl and Levaquin. Initiate tube feeding at low rate and observe. Advance as tolerated. Diabetes mellitus type 2. Continue Accu-Cheks and sliding scale insulin. Seizure disorder. Continue medications. Changed Keppra to IV given the nothing by mouth status. Patient was noted left upper extremity and neck twitching resolved.? Focal seizure. Neurology following. Neurology started Vimpat. Increase Keppra to 750 mg 3 times a day, if okay with neurologist Hypertension. Change the hydralazine to IV. Given the nothing by mouth status Hypothyroidism. Synthroid daily History Interval history: Patient is somnolent. Patient still with left upper extremity and neck twitching. Hospitalist Physical - Constitutional Vitals: Temp Pulse Resp BP Pulse Ox 98.6 F 86 22 152/66 93 11/04/17 09:47 11/04/17 09:47 11/04/17 09:47 11/04/17 09:47 11/04/17 09:47 General appearance: Present: no acute distress - EENT Eyes: Present: PERRL, EOM intact ENT: hearing intact, clear oral mucosa, dentition normal - Neck Neck: Present: supple, normal ROM - Respiratory Respiratory effort: normal Respiratory: bilateral: CTA - Cardiovascular Rhythm: regular Heart Sounds: Present: S1 & S2. Absent: gallop, rub - Extremities Extremities: no ischemia, No edema, Full ROM - Abdominal General gastrointestinal: soft, non-tender, non-distended, normal bowel sounds - Integumentary Integumentary: Present: clear, warm, dry - Neurologic Neurologic: CNII-XII intact, moves all extremities Results - Labs CBC & Chem 7: 11/03/17 05:57 11/03/17 05:57 Labs: Laboratory Last Values WBC 8.8 K/mm3 (4.5-11.0) 11/03/17 05:57 RBC 3.96 M/mm3 (3.65-5.03) 11/03/17 05:57 Hgb 12.8 gm/dl (11.8-15.2) 11/03/17 05:57 Hct 39.4 % (35.5-45.6) 11/03/17 05:57 MCV 99 fl (84-94) H 11/03/17 05:57 MCH 32 pg (28-32) 11/03/17 05:57 MCHC 32 % (32-34) 11/03/17 05:57 RDW 13.6 % (13.2-15.2) 11/03/17 05:57 Plt Count 413 K/mm3 (140-440) 11/03/17 05:57 Lymph % (Auto) 16.5 % (13.4-35.0) 11/03/17 05:57 [place] % (Auto) 14.4 % (0.0-7.3) H 11/03/17 05:57 Eos % (Auto) 1.5 % (0.0-4.3) 11/03/17 05:57 Baso % (Auto) 0.1 % (0.0-1.8) 11/03/17 05:57 Lymph # 1.4 K/mm3 (1.2-5.4) 11/03/17 05:57 [place] # 1.3 K/mm3 (0.0-0.8) H 11/03/17 05:57 Eos # 0.1 K/mm3 (0.0-0.4) 11/03/17 05:57 Baso # 0.0 K/mm3 (0.0-0.1) 11/03/17 05:57 Add Manual Diff Complete 10/31/17 05:37 Total Counted 100 10/31/17 05:37 Seg Neutrophils % 67.5 % (40.0-70.0) 11/03/17 05:57 Seg Neuts % (Manual) 58.0 % (40.0-70.0) 10/31/17 05:37 Band Neutrophils % 2.0 % 10/31/17 05:37 Lymphocytes % (Manual) 17.0 % (13.4-35.0) 10/31/17 05:37 Reactive Lymphs % (Man) 0 % 10/31/17 05:37 Monocytes % (Manual) 18.0 % (0.0-7.3) H 10/31/17 05:37 Eosinophils % (Manual) 5.0 % (0.0-4.3) H 10/31/17 05:37 Basophils % (Manual) 0 % (0.0-1.8) 10/31/17 05:37 Metamyelocytes % 0 % 10/31/17 05:37 Myelocytes % 0 % 10/31/17 05:37 Promyelocytes % 0 % 10/31/17 05:37 Blast Cells % 0 % 10/31/17 05:37 Nucleated RBC % 1.0 % (0.0-0.9) H 10/31/17 05:37 Seg Neutrophils # 5.9 K/mm3 (1.8-7.7) 11/03/17 05:57 Seg Neutrophils # Man 5.6 K/mm3 (1.8-7.7) 10/31/17 05:37 Band Neutrophils # 0.2 K/mm3 10/31/17 05:37 Lymphocytes # (Manual) 1.6 K/mm3 (1.2-5.4) 10/31/17 05:37 Abs React Lymphs (Man) 0.0 K/mm3 10/31/17 05:37 Monocytes # (Manual) 1.7 K/mm3 (0.0-0.8) H 10/31/17 05:37 Eosinophils # (Manual) 0.5 K/mm3 (0.0-0.4) H 10/31/17 05:37 Basophils # (Manual) 0.0 K/mm3 (0.0-0.1) 10/31/17 05:37 Metamyelocytes # 0.0 K/mm3 10/31/17 05:37 Myelocytes # 0.0 K/mm3 10/31/17 05:37 Promyelocytes # 0.0 K/mm3 10/31/17 05:37 Blast Cells # 0.0 K/mm3 10/31/17 05:37 WBC Morphology Not Reportable 10/31/17 05:37 Hypersegmented Neuts Not Reportable 10/31/17 05:37 Hyposegmented Neuts Not Reportable 10/31/17 05:37 Hypogranular Neuts Not Reportable 10/31/17 05:37 Smudge Cells Not Reportable 10/31/17 05:37 Toxic Granulation Not Reportable 10/31/17 05:37 Toxic Vacuolation Not Reportable 10/31/17 05:37 Dohle Bodies Not Reportable 10/31/17 05:37 Pelger-Huet Anomaly Not Reportable 10/31/17 05:37 Kaitlyn Rods Not Reportable 10/31/17 05:37 Platelet Estimate Consistent w auto 10/31/17 05:37 Clumped Platelets Not Reportable 10/31/17 05:37 Plt Clumps, EDTA Not Reportable 10/31/17 05:37 Large Platelets Not Reportable 10/31/17 05:37 Giant Platelets Not Reportable 10/31/17 05:37 Platelet Satelliting Not Reportable 10/31/17 05:37 Plt Morphology Comment Not Reportable 10/31/17 05:37 RBC Morphology Not Reportable 10/31/17 05:37 Dimorphic RBCs Not Reportable 10/31/17 05:37 Polychromasia Rare 10/31/17 05:37 Hypochromasia Not Reportable 10/31/17 05:37 Poikilocytosis Not Reportable 10/31/17 05:37 Anisocytosis Not Reportable 10/31/17 05:37 Microcytosis Not Reportable 10/31/17 05:37 Macrocytosis Not Reportable 10/31/17 05:37 Spherocytes Not Reportable 10/31/17 05:37 Pappenheimer Bodies Not Reportable 10/31/17 05:37 Sickle Cells Not Reportable 10/31/17 05:37 Target Cells Not Reportable 10/31/17 05:37 Tear Drop Cells Not Reportable 10/31/17 05:37 Ovalocytes Not Reportable 10/31/17 05:37 Helmet Cells Not Reportable 10/31/17 05:37 Lo-Orion Bodies Not Reportable 10/31/17 05:37 Selma Rings Not Reportable 10/31/17 05:37 Gregory Cells Not Reportable 10/31/17 05:37 Bite Cells Not Reportable 10/31/17 05:37 Crenated Cell Not Reportable 10/31/17 05:37 Elliptocytes Not Reportable 10/31/17 05:37 Acanthocytes (Spur) Not Reportable 10/31/17 05:37 Rouleaux Not Reportable 10/31/17 05:37 Hemoglobin C Crystals Not Reportable 10/31/17 05:37 Schistocytes Not Reportable 10/31/17 05:37 Malaria parasites Not Reportable 10/31/17 05:37 Dionisio Bodies Not Reportable 10/31/17 05:37 Hem Pathologist Commnt No 10/31/17 05:37 Sodium 142 mmol/L (137-145) 11/03/17 05:57 Potassium 3.3 mmol/L (3.6-5.0) L 11/03/17 05:57 Chloride 99.3 mmol/L (98-107) 11/03/17 05:57 Carbon Dioxide 26 mmol/L (22-30) 11/03/17 05:57 Anion Gap 20 mmol/L 11/03/17 05:57 BUN 17 mg/dL (9-20) 11/03/17 05:57 Creatinine 1.2 mg/dL (0.8-1.5) 11/03/17 05:57 Estimated GFR > 60 ml/min 11/03/17 05:57 BUN/Creatinine Ratio 14 % 11/03/17 05:57 Glucose 156 mg/dL (75-100) H 11/03/17 05:57 POC Glucose 135 (70-105) H 11/04/17 08:58 Calcium 9.4 mg/dL (8.4-10.2) 11/03/17 05:57 Total Bilirubin 0.20 mg/dL (0.1-1.2) 10/29/17 21:25 AST 18 units/L (5-40) 10/29/17 21:25 ALT 18 units/L (7-56) 10/29/17 21:25 Alkaline Phosphatase 143 units/L (35-129) H 10/29/17 21:25 Total Protein 6.4 g/dL (6.3-8.2) 10/29/17 21:25 Albumin 3.8 g/dL (3.9-5) L 10/29/17 21:25 Albumin/Globulin Ratio 1.5 % 10/29/17 21:25 Lipase 17 units/L (13-60) 10/29/17 21:25 TSH 41.620 mlU/mL (0.270-4.200) H 10/29/17 21:25 Free T4 0.70 ng/dL (0.76-1.46) L 10/29/17 21:25 Urine Color [place] (Yellow) 10/29/17 21:28 Urine Turbidity Clear (Clear) 10/29/17 21:28 Urine pH 5.0 (5.0-7.0) 10/29/17 21: Ur Specific [place] 1.031 (1.003-1.030) H 10/29/17 21: Urine Protein 100 mg/dl mg/dL (Negative) 10/29/17 21: Urine Glucose (UA) >=500 mg/dL (Negative) 10/29/17 21: Urine Ketones Tr mg/dL (Negative) 10/29/17: Urine Blood Neg (Negative) 10/29/17: Urine Nitrite Neg (Negative) 10/29/17: Urine Bilirubin Neg (Negative) 10/29/17: Urine Urobilinogen 2.0 mg/dL (<2.0) 10/29/17: Ur Leukocyte Esterase Mod (Negative) 10/29/17 21: Urine WBC (Auto) 38.0 /HPF (0.0-6.0) H 10/29/17: Urine RBC (Auto) 79.0 /HPF (0.0-6.0) 10/29/17: U Epithel Cells (Auto) 1.0 /HPF (0-13.0) 10/29/17: Urine Bacteria (Auto) 2+ /HPF (Negative) 10/29/17 Urine Mucus 1+ /HPF 10/29/17 21: Valproic Acid 47.7 ug/mL (50-100) L 10/29/17 21:
[2017-11-04 14:22] LABS: BUN/Creatinine Ratio 20; Blood Urea Nitrogen 20 mg/dL (9-20); Calcium 9.4 mg/dL (8.4-10.2); Hemolysis Index 15
[2017-11-04] MEDS: VIMPAT PO SCH (14:41)
[2017-11-04] MEDS: KEPPRA 750 MG in NACL 0.9% 100 ML IV SCH (18:07)
[2017-11-04] MEDS: APRESOLINE IV PRN (21:23)
[2017-11-05] MEDS: VIMPAT PO SCH ×2 (01:57→14:26)
[2017-11-05] MEDS: KEPPRA 750 MG in NACL 0.9% 100 ML IV SCH ×2 (03:21→14:26)
[2017-11-05] MEDS: SYNTHROID FEEDTUBE SCH (05:13)
[2017-11-05] MEDS: FLAGYL 500 MG/100 ML 500 MG/100 ML BAG IV SCH ×3 (05:13→21:01)
[2017-11-05 06:13] LABS: Basophils % (Auto) 0.3 % (0.0-1.8); Eosinophils # (Auto) 0.4 K/mm3 (0.0-0.4); Eosinophils % (Auto) 5.4 % (0.0-4.3); Hematocrit 38.5 % (35.5-45.6); Hemoglobin 12.7 gm/dl (11.8-15.2); Lymphocytes # (Auto) 1.5 K/mm3 (1.2-5.4); Lymphocytes % (Auto) 22.4 % (13.4-35.0); Mean Corpuscular HGB Conc 33 % (32-34); Mean Corpuscular Hemoglobin 33 pg (28-32); Mean Corpuscular Volume 99 fl (84-94); Monocytes # (Auto) 0.7 K/mm3 (0.0-0.8); Monocytes % (Auto) 10.7 % (0.0-7.3); Platelet Count 336 K/mm3 (140-440)
[2017-11-05 06:22] LABS: BUN/Creatinine Ratio 21; Blood Urea Nitrogen 21 mg/dL (9-20); Calcium 8.6 mg/dL (8.4-10.2); Hemolysis Index 42
--- NOTE | 2017-11-05 07:48 | Fluoroscopy Report ---
BARIUM ENEMA History: Abdominal distention, constipation Findings: Operator Assistant I Cementing film of the abdomen demonstrates marked gaseous distention and redundancy of the colon. There is moderate stool in the mid to distal colon. A rectal tube was inserted and secured by balloon inflation for administration of 1 L of Gastrografin contrast agent. Only the rectum, sigmoid colon and proximal descending colon could be opacified with Gastrografin secondary to redundancy of the colon. At this point, the patient was unable to retain the contrast agent within the rectosigmoid colon. There are multiple filling defects in the distal colon consistent with stool but no obvious mass or stricture on this limited exam. Impression: Incomplete Gastrografin enema. The entire colon could not be opacified secondary to extreme redundancy of the colon.
[2017-11-05] MEDS ORDERED: KCL 10MEQ/100ML 10 MEQ/100 ML BAG IV ONE (08:02)
--- NOTE | 2017-11-05 08:14 | Progress Note ---
Assessment and Plan Assessment and plan: Colon distention/rectosigmoid inflammation. Surgery and GI following. CT showed diffuse colonic distention. KUB showed diffuse gaseous distention of the colon and mild constipation. Continue IV fluid hydration and electrolyte replacement. Continue empiric antibiotics of Flagyl and Levaquin. Initiate tube feeding at low rate and observe. Advance as tolerated. Diabetes mellitus type 2. Continue Accu-Cheks and sliding scale insulin. Seizure disorder. Continue medications. Changed Keppra to IV given the nothing by mouth status. Patient was noted left upper extremity and neck twitching resolved.? Focal seizure. Neurology following. Neurology started Vimpat. Increased Keppra to 750 mg 3 times a day, if okay with neurologist Hypertension. Change the hydralazine to IV, given the NPO status Hypothyroidism. Synthroid daily Hypokalemia. Replete potassium History Interval history: Patient is somnolent. Patient still with left upper extremity and neck twitching. Hospitalist Physical - Constitutional Vitals: Temp Pulse Resp BP Pulse Ox 98.4 F 85 24 157/79 95 11/05/17 01:51 11/05/17 05:19 11/05/17 01:51 11/05/17 05:19 11/04/17 20:58 General appearance: Present: no acute distress - EENT Eyes: Present: PERRL, EOM intact ENT: hearing intact, clear oral mucosa, dentition normal - Neck Neck: Present: supple, normal ROM - Respiratory Respiratory effort: normal Respiratory: bilateral: CTA - Cardiovascular Rhythm: regular Heart Sounds: Present: S1 & S2. Absent: gallop, rub - Extremities Extremities: no ischemia, No edema, Full ROM - Abdominal General gastrointestinal: soft, non-tender, non-distended, normal bowel sounds - Integumentary Integumentary: Present: clear, warm, dry - Neurologic Neurologic: CNII-XII intact, moves all extremities Results - Labs CBC & Chem 7: 11/05/17 05:40 11/05/17 05:40 Labs: Laboratory Last Values WBC 6.6 K/mm3 (4.5-11.0) 11/05/17 05:40 RBC 3.90 M/mm3 (3.65-5.03) 11/05/17 05:40 Hgb 12.7 gm/dl (11.8-15.2) 11/05/17 05:40 Hct 38.5 % (35.5-45.6) 11/05/17 05:40 MCV 99 fl (84-94) H 11/05/17 05:40 MCH 33 pg (28-32) H 11/05/17 05:40 MCHC 33 % (32-34) 11/05/17 05:40 RDW 14.0 % (13.2-15.2) 11/05/17 05:40 Plt Count 336 K/mm3 (140-440) 11/05/17 05:40 Lymph % (Auto) 22.4 % (13.4-35.0) 11/05/17 05:40 [place] % (Auto) 10.7 % (0.0-7.3) H 11/05/17 05:40 Eos % (Auto) 5.4 % (0.0-4.3) H 11/05/17 05:40 Baso % (Auto) 0.3 % (0.0-1.8) 11/05/17 05:40 Lymph # 1.5 K/mm3 (1.2-5.4) 11/05/17 05:40 [place] # 0.7 K/mm3 (0.0-0.8) 11/05/17 05:40 Eos # 0.4 K/mm3 (0.0-0.4) 11/05/17 05:40 Baso # 0.0 K/mm3 (0.0-0.1) 11/05/17 05:40 Add Manual Diff Complete 10/31/17 05:37 Total Counted 100 10/31/17 05:37 Seg Neutrophils % 61.2 % (40.0-70.0) 11/05/17 05:40 Seg Neuts % (Manual) 58.0 % (40.0-70.0) 10/31/17 05:37 Band Neutrophils % 2.0 % 10/31/17 05:37 Lymphocytes % (Manual) 17.0 % (13.4-35.0) 10/31/17 05:37 Reactive Lymphs % (Man) 0 % 10/31/17 05:37 Monocytes % (Manual) 18.0 % (0.0-7.3) H 10/31/17 05:37 Eosinophils % (Manual) 5.0 % (0.0-4.3) H 10/31/17 05:37 Basophils % (Manual) 0 % (0.0-1.8) 10/31/17 05:37 Metamyelocytes % 0 % 10/31/17 05:37 Myelocytes % 0 % 10/31/17 05:37 Promyelocytes % 0 % 10/31/17 05:37 Blast Cells % 0 % 10/31/17 05:37 Nucleated RBC % 1.0 % (0.0-0.9) H 10/31/17 05:37 Seg Neutrophils # 4.0 K/mm3 (1.8-7.7) 11/05/17 05:40 Seg Neutrophils # Man 5.6 K/mm3 (1.8-7.7) 10/31/17 05:37 Band Neutrophils # 0.2 K/mm3 10/31/17 05:37 Lymphocytes # (Manual) 1.6 K/mm3 (1.2-5.4) 10/31/17 05:37 Abs React Lymphs (Man) 0.0 K/mm3 10/31/17 05:37 Monocytes # (Manual) 1.7 K/mm3 (0.0-0.8) H 10/31/17 05:37 Eosinophils # (Manual) 0.5 K/mm3 (0.0-0.4) H 10/31/17 05:37 Basophils # (Manual) 0.0 K/mm3 (0.0-0.1) 10/31/17 05:37 Metamyelocytes # 0.0 K/mm3 10/31/17 05:37 Myelocytes # 0.0 K/mm3 10/31/17 05:37 Promyelocytes # 0.0 K/mm3 10/31/17 05:37 Blast Cells # 0.0 K/mm3 10/31/17 05:37 WBC Morphology Not Reportable 10/31/17 05:37 Hypersegmented Neuts Not Reportable 10/31/17 05:37 Hyposegmented Neuts Not Reportable 10/31/17 05:37 Hypogranular Neuts Not Reportable 10/31/17 05:37 Smudge Cells Not Reportable 10/31/17 05:37 Toxic Granulation Not Reportable 10/31/17 05:37 Toxic Vacuolation Not Reportable 10/31/17 05:37 Dohle Bodies Not Reportable 10/31/17 05:37 Pelger-Huet Anomaly Not Reportable 10/31/17 05:37 Kaitlyn Rods Not Reportable 10/31/17 05:37 Platelet Estimate Consistent w auto 10/31/17 05:37 Clumped Platelets Not Reportable 10/31/17 05:37 Plt Clumps, EDTA Not Reportable 10/31/17 05:37 Large Platelets Not Reportable 10/31/17 05:37 Giant Platelets Not Reportable 10/31/17 05:37 Platelet Satelliting Not Reportable 10/31/17 05:37 Plt Morphology Comment Not Reportable 10/31/17 05:37 RBC Morphology Not Reportable 10/31/17 05:37 Dimorphic RBCs Not Reportable 10/31/17 05:37 Polychromasia Rare 10/31/17 05:37 Hypochromasia Not Reportable 10/31/17 05:37 Poikilocytosis Not Reportable 10/31/17 05:37 Anisocytosis Not Reportable 10/31/17 05:37 Microcytosis Not Reportable 10/31/17 05:37 Macrocytosis Not Reportable 10/31/17 05:37 Spherocytes Not Reportable 10/31/17 05:37 Pappenheimer Bodies Not Reportable 10/31/17 05:37 Sickle Cells Not Reportable 10/31/17 05:37 Target Cells Not Reportable 10/31/17 05:37 Tear Drop Cells Not Reportable 10/31/17 05:37 Ovalocytes Not Reportable 10/31/17 05:37 Helmet Cells Not Reportable 10/31/17 05:37 [place] Bodies Not Reportable 10/31/17 05:37 [place] Rings Not Reportable 10/31/17 05:37 [place] Cells Not Reportable 10/31/17 05:37 Bite Cells Not Reportable 10/31/17 05:37 Crenated Cell Not Reportable 10/31/17 05:37 Elliptocytes Not Reportable 10/31/17 05:37 Acanthocytes (Spur) Not Reportable 10/31/17 05:37 Rouleaux Not Reportable 10/31/17 05:37 Hemoglobin C Crystals Not Reportable 10/31/17 05:37 Schistocytes Not Reportable 10/31/17 05:37 Malaria parasites Not Reportable 10/31/17 05:37 Dionisio Bodies Not Reportable 10/31/17 05:37 Hem Pathologist Commnt No 10/31/17 05:37 Sodium 140 mmol/L (137-145) 11/05/17 05:40 Potassium 3.0 mmol/L (3.6-5.0) L 11/05/17 05:40 Chloride 100.6 mmol/L (98-107) 11/05/17 05:40 Carbon Dioxide 24 mmol/L (22-30) 11/05/17 05:40 Anion Gap 18 mmol/L 11/05/17 05:40 BUN 21 mg/dL (9-20) H 11/05/17 05:40 Creatinine 1.0 mg/dL (0.8-1.5) 11/05/17 05:40 Estimated GFR > 60 ml/min 11/05/17 05:40 BUN/Creatinine Ratio 21 % 11/05/17 05:40 Glucose 177 mg/dL (75-100) H 11/05/17 05:40 POC Glucose 172 (70-105) H 11/05/17 06:23 Calcium 8.6 mg/dL (8.4-10.2) 11/05/17 05:40 Total Bilirubin 0.20 mg/dL (0.1-1.2) 10/29/17 21:25 AST 18 units/L (5-40) 10/29/17 21:25 ALT 18 units/L (7-56) 10/29/17 21:25 Alkaline Phosphatase 143 units/L (35-129) H 10/29/17 21:25 Total Creatine Kinase 269 units/L (55-170) H 11/04/17 13:34 Total Protein 6.4 g/dL (6.3-8.2) 10/29/17 21:25 Albumin 3.8 g/dL (3.9-5) L 10/29/17 21:25 Albumin/Globulin Ratio 1.5 % 10/29/17 21:25 Lipase 17 units/L (13-60) 10/29/17 21:25 TSH 41.620 mlU/mL (0.270-4.200) H 10/29/17 21:25 Free T4 0.70 ng/dL (0.76-1.46) L 10/29/17 21:25 Urine Color [place] (Yellow) 10/29/17 21: Urine Turbidity Clear (Clear) 10/29/17: Urine pH 5.0 (5.0-7.0) 10/29/17: Ur Specific [place] 1.031 (1.003-1.030) H 10/29/17 21: Urine Protein 100 mg/dl mg/dL (Negative) 10/29/17: Urine Glucose (UA) >=500 mg/dL (Negative) 10/29/17: Urine Ketones Tr mg/dL (Negative) 10/29/17: Urine Blood Neg (Negative) 10/29/17: Urine Nitrite Neg (Negative) 10/29/17: Urine Bilirubin Neg (Negative) 10/29/17: Urine Urobilinogen 2.0 mg/dL (<2.0) 10/29/17: Ur Leukocyte Esterase Mod (Negative) 10/29/17: Urine WBC (Auto) 38.0 /HPF (0.0-6.0) H 10/29/17: Urine RBC (Auto) 79.0 /HPF (0.0-6.0) 10/29/17: U Epithel Cells (Auto) 1.0 /HPF (0-13.0) 10/29/17: Urine Bacteria (Auto) 2+ /HPF (Negative) 10/29/17: Urine Mucus 1+ /HPF 10/29/17: Valproic Acid 47.7 ug/mL (50-100) L 10/29/17:
[2017-11-05] MEDS ORDERED: KCL 10 MEQ in NACL 0.9% 100 ML IV NR (09:00)
[2017-11-05] MEDS: LIOTHYRONINE PO SCH (10:42)
[2017-11-05] MEDS: DepaKENE Liq FEEDTUBE SCH ×2 (10:42→20:24)
[2017-11-05] MEDS: SENOKOT S PO SCH ×3 (10:43→20:41)
[2017-11-05] MEDS: LEVAQUIN 750MG/150ML 750 MG/150 ML BAG IV SCH (10:43)
[2017-11-05] MEDS: TRILEPTAL PO SCH ×2 (10:44→20:25)
[2017-11-05] MEDS: DULCOLAX PR SCH (11:03)
--- NOTE | 2017-11-05 11:09 | Progress Note ---
Assessment and Plan - Patient Problems (1) Colon distention Current Visit: Yes Status: Acute Plan to address problem: Patient does not show signs suggestive of acute process requiring surgical intervention. Need to monitor for signs of increased colonic distention which may force us to operate. In looking back at his records, this has been a chronic problem for him. Abdomen is distended again as expected. Agree with Dr. Kurtz. Continue to maximize conservative measures. As he is having bowel function , continue tube feeds. Appears to be tolerating Discussed situation with sister, Lavonne at the bedside on 11/02. My opinion is that this will not completely resolve, even with optimizing his medical condition. Therefore, we should consider the option of surgery. Of the two options (ostomy vs subtotal colectomy), I would favor subtotal colectomy. Having said this, we should try to optimize him for surgery. It would be best if we could use the PEG for tube feeds and get his TSH normalized. This will minimize his risk of omari-operative complications. If we are unable to feed him and/or correct his TSH, then we will consider surgery sooner, but the risks are higher. I have asked her to consider these possibilities and discuss them with her family. Will follow peripherally. Please call with questions. Time=15min Subjective Date of service: 11/05/17 Patient Reports: Positive: other (no new issues) Objective Vital Signs - 12hr 11/05/17 11/05/17 11/05/17 01:51 04:00 05:19 Temperature 98.4 F Pulse Rate 77 85 Respiratory 24 Rate Blood Pressure 114/75 Blood Pressure 157/79 [Right] O2 Sat by Pulse Oximetry 11/05/17 08:25 Temperature 98.6 F Pulse Rate 77 Respiratory 24 Rate Blood Pressure 169/67 Blood Pressure [Right] O2 Sat by Pulse 97 Oximetry - General physical appearance well developed, well nourished, no distress, no pain, other (frequent twitching) - Respiratory normal expansion, normal respiratory effort - Abdomen soft, not tender, distended (but much less today. ), not guarding, not rigid, other (TF at 40cc/hr. Difficult to assess bowel sounds due to twitching) - Labs 11/05/17 05:40 11/05/17 05:40 Diabetes panel 11/04/17 11/05/17 Range/Units 13:34 05:40 Sodium 143 140 (137-145) mmol/L Potassium 3.1 L 3.0 L (3.6-5.0) mmol/L Chloride 101.6 100.6 (98-107) mmol/L Carbon Dioxide 25 24 (22-30) mmol/L BUN 20 21 H (9-20) mg/dL Creatinine 1.0 1.0 (0.8-1.5) mg/dL Glucose 153 H 177 H (75-100) mg/dL Calcium 9.4 8.6 (8.4-10.2) mg/dL Calcium panel 11/04/17 11/05/17 Range/Units 13:34 05:40 Calcium 9.4 8.6 (8.4-10.2) mg/dL Pituitary panel 11/04/17 11/05/17 Range/Units 13:34 05:40 Sodium 143 140 (137-145) mmol/L Potassium 3.1 L 3.0 L (3.6-5.0) mmol/L Chloride 101.6 100.6 (98-107) mmol/L Carbon Dioxide 25 24 (22-30) mmol/L BUN 20 21 H (9-20) mg/dL Creatinine 1.0 1.0 (0.8-1.5) mg/dL Glucose 153 H 177 H (75-100) mg/dL Calcium 9.4 8.6 (8.4-10.2) mg/dL Adrenal panel 11/04/17 11/05/17 Range/Units 13:34 05:40 Sodium 143 140 (137-145) mmol/L Potassium 3.1 L 3.0 L (3.6-5.0) mmol/L Chloride 101.6 100.6 (98-107) mmol/L Carbon Dioxide 25 24 (22-30) mmol/L BUN 20 21 H (9-20) mg/dL Creatinine 1.0 1.0 (0.8-1.5) mg/dL Glucose 153 H 177 H (75-100) mg/dL Calcium 9.4 8.6 (8.4-10.2) mg/dL
[2017-11-05] MEDS: KEPPRA PO SCH ×2 (16:42→20:24)
[2017-11-05] MEDS: ATIVAN IV PRN (20:22)
[2017-11-05] MEDS ORDERED: NACL 0.9% 250ML 250 ML ONE (20:35)
[2017-11-06] MEDS: DepaKENE Liq FEEDTUBE SCH ×3 (00:15→22:19)
[2017-11-06] MEDS: SENOKOT S PO SCH ×3 (00:15→22:16)
[2017-11-06] MEDS: TRILEPTAL PO SCH ×3 (00:15→22:18)
[2017-11-06] MEDS: KEPPRA PO SCH ×4 (00:15→22:18)
[2017-11-06] MEDS: VIMPAT PO SCH ×3 (02:17→22:16)
[2017-11-06 06:19] LABS: Basophils % (Auto) 0.1 % (0.0-1.8); Eosinophils # (Auto) 0.3 K/mm3 (0.0-0.4); Eosinophils % (Auto) 4.8 % (0.0-4.3); Hematocrit 34.8 % (35.5-45.6); Hemoglobin 11.8 gm/dl (11.8-15.2); Lymphocytes # (Auto) 1.4 K/mm3 (1.2-5.4); Mean Corpuscular HGB Conc 34 % (32-34); Mean Corpuscular Hemoglobin 33 pg (28-32); Mean Corpuscular Volume 98 fl (84-94); Monocytes # (Auto) 0.6 K/mm3 (0.0-0.8); Monocytes % (Auto) 10.2 % (0.0-7.3); Platelet Count 317 K/mm3 (140-440); Red Blood Count 3.55 M/mm3 (3.65-5.03); Red Cell Distribution Width 14.1 % (13.2-15.2)
[2017-11-06] MEDS: FLAGYL 500 MG/100 ML 500 MG/100 ML BAG IV SCH ×3 (06:22→22:16)
[2017-11-06] MEDS: SYNTHROID FEEDTUBE SCH (06:23)
[2017-11-06 06:33] LABS: BUN/Creatinine Ratio 24; Blood Urea Nitrogen 26 mg/dL (9-20); Calcium 8.4 mg/dL (8.4-10.2); Hemolysis Index 18
[2017-11-06] MEDS: LIOTHYRONINE PO SCH (10:07)
[2017-11-06] MEDS: LEVAQUIN 750MG/150ML 750 MG/150 ML BAG IV SCH (10:08)
[2017-11-06] MEDS: DULCOLAX PR SCH (10:08)
--- NOTE | 2017-11-06 18:11 | Progress Note ---
Assessment and Plan Assessment and plan: Colon distention/rectosigmoid inflammation. Surgery and GI following. CT showed diffuse colonic distention. KUB showed diffuse gaseous distention of the colon and mild constipation. Continue IV fluid hydration and electrolyte replacement. Continue empiric antibiotics of Flagyl and Levaquin. Initiate tube feeding at low rate and observe. Advance as tolerated. Diabetes mellitus type 2. Continue Accu-Cheks and sliding scale insulin. Seizure disorder - Patient is on IV Keppra and Vimpat through NG tube - Neurology following, patient still has some twitching in the upper extremities Hypertension Hypothyroidism. Synthroid daily Hypokalemia. Replete potassium History Interval history: Patient was seen and evaluated this morning, patient was sleepy and non communicative. Hospitalist Physical - Physical exam Narrative exam: Not in cardiopulmonary distress. The patient appeared well nourished and normally developed. Vital signs as documented. Head exam is unremarkable. No scleral icterus . Neck is without jugular venous distension, thyromegaly, or carotid bruits. Lungs are clear to auscultation. Cardiac exam reveals regular rate and Rhythm. First and second heart sounds normal. No murmurs, rubs or gallops. Abdominal exam reveals normal bowel sounds, no masses, no organomegaly and no aortic enlargement. Extremities are nonedematous and both femoral and pedal pulses are normal. [employer]: Sleepy and non communicative. - Constitutional Vitals: Temp Pulse Resp BP Pulse Ox 97.6 F 72 19 116/63 99 11/06/17 05:52 11/06/17 10:00 11/06/17 10:00 11/06/17 05:52 11/06/17 05:52 General appearance: Present: no acute distress Results - Labs CBC & Chem 7: 11/07/17 05:02 11/07/17 05:02 Labs: Laboratory Last Values WBC 6.0 K/mm3 (4.5-11.0) 11/06/17 05:55 RBC 3.55 M/mm3 (3.65-5.03) L 11/06/17 05:55 Hgb 11.8 gm/dl (11.8-15.2) 11/06/17 05:55 Hct 34.8 % (35.5-45.6) L 11/06/17 05:55 MCV 98 fl (84-94) H 11/06/17 05:55 MCH 33 pg (28-32) H 11/06/17 05:55 MCHC 34 % (32-34) 11/06/17 05:55 RDW 14.1 % (13.2-15.2) 11/06/17 05:55 Plt Count 317 K/mm3 (140-440) 11/06/17 05:55 Lymph % (Auto) 24.0 % (13.4-35.0) 11/06/17 05:55 [place] % (Auto) 10.2 % (0.0-7.3) H 11/06/17 05:55 Eos % (Auto) 4.8 % (0.0-4.3) H 11/06/17 05:55 Baso % (Auto) 0.1 % (0.0-1.8) 11/06/17 05:55 Lymph # 1.4 K/mm3 (1.2-5.4) 11/06/17 05:55 [place] # 0.6 K/mm3 (0.0-0.8) 11/06/17 05:55 Eos # 0.3 K/mm3 (0.0-0.4) 11/06/17 05:55 Baso # 0.0 K/mm3 (0.0-0.1) 11/06/17 05:55 Add Manual Diff Complete 10/31/17 05:37 Total Counted 100 10/31/17 05:37 Seg Neutrophils % 60.9 % (40.0-70.0) 11/06/17 05:55 Seg Neuts % (Manual) 58.0 % (40.0-70.0) 10/31/17 05:37 Band Neutrophils % 2.0 % 10/31/17 05:37 Lymphocytes % (Manual) 17.0 % (13.4-35.0) 10/31/17 05:37 Reactive Lymphs % (Man) 0 % 10/31/17 05:37 Monocytes % (Manual) 18.0 % (0.0-7.3) H 10/31/17 05:37 Eosinophils % (Manual) 5.0 % (0.0-4.3) H 10/31/17 05:37 Basophils % (Manual) 0 % (0.0-1.8) 10/31/17 05:37 Metamyelocytes % 0 % 10/31/17 05:37 Myelocytes % 0 % 10/31/17 05:37 Promyelocytes % 0 % 10/31/17 05:37 Blast Cells % 0 % 10/31/17 05:37 Nucleated RBC % 1.0 % (0.0-0.9) H 10/31/17 05:37 Seg Neutrophils # 3.7 K/mm3 (1.8-7.7) 11/06/17 05:55 Seg Neutrophils # Man 5.6 K/mm3 (1.8-7.7) 10/31/17 05:37 Band Neutrophils # 0.2 K/mm3 10/31/17 05:37 Lymphocytes # (Manual) 1.6 K/mm3 (1.2-5.4) 10/31/17 05:37 Abs React Lymphs (Man) 0.0 K/mm3 10/31/17 05:37 Monocytes # (Manual) 1.7 K/mm3 (0.0-0.8) H 10/31/17 05:37 Eosinophils # (Manual) 0.5 K/mm3 (0.0-0.4) H 10/31/17 05:37 Basophils # (Manual) 0.0 K/mm3 (0.0-0.1) 10/31/17 05:37 Metamyelocytes # 0.0 K/mm3 10/31/17 05:37 Myelocytes # 0.0 K/mm3 10/31/17 05:37 Promyelocytes # 0.0 K/mm3 10/31/17 05:37 Blast Cells # 0.0 K/mm3 10/31/17 05:37 WBC Morphology Not Reportable 10/31/17 05:37 Hypersegmented Neuts Not Reportable 10/31/17 05:37 Hyposegmented Neuts Not Reportable 10/31/17 05:37 Hypogranular Neuts Not Reportable 10/31/17 05:37 Smudge Cells Not Reportable 10/31/17 05:37 Toxic Granulation Not Reportable 10/31/17 05:37 Toxic Vacuolation Not Reportable 10/31/17 05:37 Dohle Bodies Not Reportable 10/31/17 05:37 Pelger-Huet Anomaly Not Reportable 10/31/17 05:37 Kaitlyn Rods Not Reportable 10/31/17 05:37 Platelet Estimate Consistent w auto 10/31/17 05:37 Clumped Platelets Not Reportable 10/31/17 05:37 Plt Clumps, EDTA Not Reportable 10/31/17 05:37 Large Platelets Not Reportable 10/31/17 05:37 Giant Platelets Not Reportable 10/31/17 05:37 Platelet Satelliting Not Reportable 10/31/17 05:37 Plt Morphology Comment Not Reportable 10/31/17 05:37 RBC Morphology Not Reportable 10/31/17 05:37 Dimorphic RBCs Not Reportable 10/31/17 05:37 Polychromasia Rare 10/31/17 05:37 Hypochromasia Not Reportable 10/31/17 05:37 Poikilocytosis Not Reportable 10/31/17 05:37 Anisocytosis Not Reportable 10/31/17 05:37 Microcytosis Not Reportable 10/31/17 05:37 Macrocytosis Not Reportable 10/31/17 05:37 Spherocytes Not Reportable 10/31/17 05:37 Pappenheimer Bodies Not Reportable 10/31/17 05:37 Sickle Cells Not Reportable 10/31/17 05:37 Target Cells Not Reportable 10/31/17 05:37 Tear Drop Cells Not Reportable 10/31/17 05:37 Ovalocytes Not Reportable 10/31/17 05:37 Helmet Cells Not Reportable 10/31/17 05:37 Lo-[place] Bodies Not Reportable 10/31/17 05:37 [place] Rings Not Reportable 10/31/17 05:37 [place] Cells Not Reportable 10/31/17 05:37 Bite Cells Not Reportable 10/31/17 05:37 Crenated Cell Not Reportable 10/31/17 05:37 Elliptocytes Not Reportable 10/31/17 05:37 Acanthocytes (Spur) Not Reportable 10/31/17 05:37 Rouleaux Not Reportable 10/31/17 05:37 Hemoglobin C Crystals Not Reportable 10/31/17 05:37 Schistocytes Not Reportable 10/31/17 05:37 Malaria parasites Not Reportable 10/31/17 05:37 Dionisio Bodies Not Reportable 10/31/17 05:37 Hem Pathologist Commnt No 10/31/17 05:37 Sodium 144 mmol/L (137-145) 11/06/17 05:55 Potassium 3.3 mmol/L (3.6-5.0) L 11/06/17 05:55 Chloride 102.9 mmol/L (98-107) 11/06/17 05:55 Carbon Dioxide 26 mmol/L (22-30) 11/06/17 05:55 Anion Gap 18 mmol/L 11/06/17 05:55 BUN 26 mg/dL (9-20) H 11/06/17 05:55 Creatinine 1.1 mg/dL (0.8-1.5) 11/06/17 05:55 Estimated GFR > 60 ml/min 11/06/17 05:55 BUN/Creatinine Ratio 24 % 11/06/17 05:55 Glucose 172 mg/dL (75-100) H 11/06/17 05:55 POC Glucose 224 (70-105) H 11/06/17 12:31 Calcium 8.4 mg/dL (8.4-10.2) 11/06/17 05:55 Total Bilirubin 0.20 mg/dL (0.1-1.2) 10/29/17 21:25 AST 18 units/L (5-40) 10/29/17 21:25 ALT 18 units/L (7-56) 10/29/17 21:25 Alkaline Phosphatase 143 units/L (35-129) H 10/29/17 21:25 Total Creatine Kinase 269 units/L (55-170) H 11/04/17 13:34 Total Protein 6.4 g/dL (6.3-8.2) 10/29/17 21:25 Albumin 3.8 g/dL (3.9-5) L 10/29/17 21:25 Albumin/Globulin Ratio 1.5 % 10/29/17 21:25 Lipase 17 units/L (13-60) 10/29/17 21:25 TSH 41.620 mlU/mL (0.270-4.200) H 10/29/17 21:25 Free T4 0.70 ng/dL (0.76-1.46) L 10/29/17 21:25 Urine Color [place] (Yellow) 10/29/17 21:28 Urine Turbidity Clear (Clear) 10/29/17 21:28 Urine pH 5.0 (5.0-7.0) 10/29/17: Ur Specific [place] 1.031 (1.003-1.030) H 10/29/17 21: Urine Protein 100 mg/dl mg/dL (Negative) 10/29/17: Urine Glucose (UA) >=500 mg/dL (Negative) 10/29/17: Urine Ketones Tr mg/dL (Negative) 10/29/17: Urine Blood Neg (Negative) 10/29/17: Urine Nitrite Neg (Negative) 10/29/17: Urine Bilirubin Neg (Negative) 10/29/17: Urine Urobilinogen 2.0 mg/dL (<2.0) 10/29/17: Ur Leukocyte Esterase Mod (Negative) 10/29/17: Urine WBC (Auto) 38.0 /HPF (0.0-6.0) H 10/29/17: Urine RBC (Auto) 79.0 /HPF (0.0-6.0) 10/29/17: U Epithel Cells (Auto) 1.0 /HPF (0-13.0) 10/29/17: Urine Bacteria (Auto) 2+ /HPF (Negative) 10/29/17: Urine Mucus 1+ /HPF 10/29/17: Valproic Acid 47.7 ug/mL (50-100) L 10/29/17:
[2017-11-06] MEDS: ATIVAN IV PRN (22:19)
[2017-11-07] MEDS: FLAGYL 500 MG/100 ML 500 MG/100 ML BAG IV SCH ×3 (05:19→22:27)
[2017-11-07] MEDS: SYNTHROID FEEDTUBE SCH (05:19)
[2017-11-07] MEDS: KEPPRA PO SCH ×3 (05:19→22:27)
[2017-11-07 05:49] LABS: Basophils % (Auto) 0.2 % (0.0-1.8); Eosinophils # (Auto) 0.4 K/mm3 (0.0-0.4); Eosinophils % (Auto) 6.1 % (0.0-4.3); Hematocrit 36.1 % (35.5-45.6); Hemoglobin 11.5 gm/dl (11.8-15.2); Lymphocytes # (Auto) 1.7 K/mm3 (1.2-5.4); Lymphocytes % (Auto) 26.4 % (13.4-35.0); Mean Corpuscular HGB Conc 32 % (32-34); Mean Corpuscular Hemoglobin 32 pg (28-32); Mean Corpuscular Volume 101 fl (84-94); Monocytes # (Auto) 0.7 K/mm3 (0.0-0.8); Monocytes % (Auto) 10.4 % (0.0-7.3); Platelet Count 312 K/mm3 (140-440); Red Blood Count 3.59 M/mm3 (3.65-5.03); Red Cell Distribution Width 14.6 % (13.2-15.2)
[2017-11-07 06:00] LABS: BUN/Creatinine Ratio 29; Blood Urea Nitrogen 23 mg/dL (9-20); Calcium 8.8 mg/dL (8.4-10.2); Hemolysis Index 10
[2017-11-07] MEDS: LEVAQUIN 750MG/150ML 750 MG/150 ML BAG IV SCH (11:26)
[2017-11-07] MEDS: TRILEPTAL PO SCH ×2 (11:28→23:30)
[2017-11-07] MEDS: DepaKENE Liq FEEDTUBE SCH ×2 (11:29→22:26)
[2017-11-07] MEDS: DULCOLAX PR SCH (11:30)
[2017-11-07] MEDS: SENOKOT S PO SCH ×2 (11:30→22:26)
[2017-11-07] MEDS: VIMPAT PO SCH ×2 (11:31→22:26)
[2017-11-07] MEDS: APRESOLINE IV PRN (17:12)
[2017-11-07] MEDS: ATIVAN IV PRN (17:17)
[2017-11-07] MEDS ORDERED: POTASSIUM CHLORIDE FEEDTUBE ONE (18:51)
--- NOTE | 2017-11-07 18:52 | Progress Note ---
Assessment and Plan Assessment and plan: Colon distention/rectosigmoid inflammation - Surgery and GI following. CT showed diffuse colonic distention. KUB showed diffuse gaseous distention of the colon and mild constipation. Continue IV fluid hydration and electrolyte replacement. Continue empiric antibiotics of Flagyl and Levaquin. Advance as tolerated. - Diabetes mellitus type 2. Continue Accu-Cheks and sliding scale insulin. Seizure disorder - Patient is on IV Keppra and Vimpat through NG tube - Neurology following, patient still has some twitching in the upper extremities Hypertension Hypothyroidism. Synthroid daily Hypokalemia. Replete potassium History Interval history: Patient was seen and evaluated this morning, patient was able to answer yes/ no questions. Hospitalist Physical - Physical exam Narrative exam: Not in cardiopulmonary distress. The patient appeared well nourished and normally developed. Vital signs as documented. Head exam is unremarkable. No scleral icterus . Neck is without jugular venous distension, thyromegaly, or carotid bruits. Lungs are clear to auscultation. Cardiac exam reveals regular rate and Rhythm. First and second heart sounds normal. No murmurs, rubs or gallops. Abdominal exam reveals distended abdomen. Extremities are nonedematous and both femoral and pedal pulses are normal. 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 - Constitutional Vitals: Temp Pulse Resp BP Pulse Ox 98.4 F 85 24 183/93 96 11/07/17 17:47 11/07/17 17:47 11/07/17 17:47 11/07/17 17:47 11/07/17 17:47 General appearance: Present: no acute distress Results - Labs CBC & Chem 7: 11/07/17 05:02 11/07/17 05:02 Labs: Laboratory Last Values WBC 6.3 K/mm3 (4.5-11.0) 11/07/17 05:02 RBC 3.59 M/mm3 (3.65-5.03) L 11/07/17 05:02 Hgb 11.5 gm/dl (11.8-15.2) L 11/07/17 05:02 Hct 36.1 % (35.5-45.6) 11/07/17 05:02 MCV 101 fl (84-94) H 11/07/17 05:02 MCH 32 pg (28-32) 11/07/17 05:02 MCHC 32 % (32-34) 11/07/17 05:02 RDW 14.6 % (13.2-15.2) 11/07/17 05:02 Plt Count 312 K/mm3 (140-440) 11/07/17 05:02 Lymph % (Auto) 26.4 % (13.4-35.0) 11/07/17 05:02 [place] % (Auto) 10.4 % (0.0-7.3) H 11/07/17 05:02 Eos % (Auto) 6.1 % (0.0-4.3) H 11/07/17 05:02 Baso % (Auto) 0.2 % (0.0-1.8) 11/07/17 05:02 Lymph # 1.7 K/mm3 (1.2-5.4) 11/07/17 05:02 [place] # 0.7 K/mm3 (0.0-0.8) 11/07/17 05:02 Eos # 0.4 K/mm3 (0.0-0.4) 11/07/17 05:02 Baso # 0.0 K/mm3 (0.0-0.1) 11/07/17 05:02 Add Manual Diff Complete 10/31/17 05:37 Total Counted 100 10/31/17 05:37 Seg Neutrophils % 56.9 % (40.0-70.0) 11/07/17 05:02 Seg Neuts % (Manual) 58.0 % (40.0-70.0) 10/31/17 05:37 Band Neutrophils % 2.0 % 10/31/17 05:37 Lymphocytes % (Manual) 17.0 % (13.4-35.0) 10/31/17 05:37 Reactive Lymphs % (Man) 0 % 10/31/17 05:37 Monocytes % (Manual) 18.0 % (0.0-7.3) H 10/31/17 05:37 Eosinophils % (Manual) 5.0 % (0.0-4.3) H 10/31/17 05:37 Basophils % (Manual) 0 % (0.0-1.8) 10/31/17 05:37 Metamyelocytes % 0 % 10/31/17 05:37 Myelocytes % 0 % 10/31/17 05:37 Promyelocytes % 0 % 10/31/17 05:37 Blast Cells % 0 % 10/31/17 05:37 Nucleated RBC % 1.0 % (0.0-0.9) H 10/31/17 05:37 Seg Neutrophils # 3.6 K/mm3 (1.8-7.7) 11/07/17 05:02 Seg Neutrophils # Man 5.6 K/mm3 (1.8-7.7) 10/31/17 05:37 Band Neutrophils # 0.2 K/mm3 10/31/17 05:37 Lymphocytes # (Manual) 1.6 K/mm3 (1.2-5.4) 10/31/17 05:37 Abs React Lymphs (Man) 0.0 K/mm3 10/31/17 05:37 Monocytes # (Manual) 1.7 K/mm3 (0.0-0.8) H 10/31/17 05:37 Eosinophils # (Manual) 0.5 K/mm3 (0.0-0.4) H 10/31/17 05:37 Basophils # (Manual) 0.0 K/mm3 (0.0-0.1) 10/31/17 05:37 Metamyelocytes # 0.0 K/mm3 10/31/17 05:37 Myelocytes # 0.0 K/mm3 10/31/17 05:37 Promyelocytes # 0.0 K/mm3 10/31/17 05:37 Blast Cells # 0.0 K/mm3 10/31/17 05:37 WBC Morphology Not Reportable 10/31/17 05:37 Hypersegmented Neuts Not Reportable 10/31/17 05:37 Hyposegmented Neuts Not Reportable 10/31/17 05:37 Hypogranular Neuts Not Reportable 10/31/17 05:37 Smudge Cells Not Reportable 10/31/17 05:37 Toxic Granulation Not Reportable 10/31/17 05:37 Toxic Vacuolation Not Reportable 10/31/17 05:37 Dohle Bodies Not Reportable 10/31/17 05:37 Pelger-Huet Anomaly Not Reportable 10/31/17 05:37 Kaitlyn Rods Not Reportable 10/31/17 05:37 Platelet Estimate Consistent w auto 10/31/17 05:37 Clumped Platelets Not Reportable 10/31/17 05:37 Plt Clumps, EDTA Not Reportable 10/31/17 05:37 Large Platelets Not Reportable 10/31/17 05:37 Giant Platelets Not Reportable 10/31/17 05:37 Platelet Satelliting Not Reportable 10/31/17 05:37 Plt Morphology Comment Not Reportable 10/31/17 05:37 RBC Morphology Not Reportable 10/31/17 05:37 Dimorphic RBCs Not Reportable 10/31/17 05:37 Polychromasia Rare 10/31/17 05:37 Hypochromasia Not Reportable 10/31/17 05:37 Poikilocytosis Not Reportable 10/31/17 05:37 Anisocytosis Not Reportable 10/31/17 05:37 Microcytosis Not Reportable 10/31/17 05:37 Macrocytosis Not Reportable 10/31/17 05:37 Spherocytes Not Reportable 10/31/17 05:37 Pappenheimer Bodies Not Reportable 10/31/17 05:37 Sickle Cells Not Reportable 10/31/17 05:37 Target Cells Not Reportable 10/31/17 05:37 Tear Drop Cells Not Reportable 10/31/17 05:37 Ovalocytes Not Reportable 10/31/17 05:37 Helmet Cells Not Reportable 10/31/17 05:37 Lo-[place] Bodies Not Reportable 10/31/17 05:37 [place] Rings Not Reportable 10/31/17 05:37 [place] Cells Not Reportable 10/31/17 05:37 Bite Cells Not Reportable 10/31/17 05:37 Crenated Cell Not Reportable 10/31/17 05:37 Elliptocytes Not Reportable 10/31/17 05:37 Acanthocytes (Spur) Not Reportable 10/31/17 05:37 Rouleaux Not Reportable 10/31/17 05:37 Hemoglobin C Crystals Not Reportable 10/31/17 05:37 Schistocytes Not Reportable 10/31/17 05:37 Malaria parasites Not Reportable 10/31/17 05:37 Dionisio Bodies Not Reportable 10/31/17 05:37 Hem Pathologist Commnt No 10/31/17 05:37 Sodium 146 mmol/L (137-145) H 11/07/17 05:02 Potassium 3.3 mmol/L (3.6-5.0) L 11/07/17 05:02 Chloride 104.7 mmol/L (98-107) 11/07/17 05:02 Carbon Dioxide 30 mmol/L (22-30) 11/07/17 05:02 Anion Gap 15 mmol/L 11/07/17 05:02 BUN 23 mg/dL (9-20) H 11/07/17 05:02 Creatinine 0.8 mg/dL (0.8-1.5) 11/07/17 05:02 Estimated GFR > 60 ml/min 11/07/17 05:02 BUN/Creatinine Ratio 29 % 11/07/17 05:02 Glucose 170 mg/dL (75-100) H 11/07/17 05:02 POC Glucose 195 (70-105) H 11/07/17 05:39 Calcium 8.8 mg/dL (8.4-10.2) 11/07/17 05:02 Total Bilirubin 0.20 mg/dL (0.1-1.2) 10/29/17 21:25 AST 18 units/L (5-40) 10/29/17 21:25 ALT 18 units/L (7-56) 10/29/17 21:25 Alkaline Phosphatase 143 units/L (35-129) H 10/29/17 21:25 Total Creatine Kinase 269 units/L (55-170) H 11/04/17 13:34 Total Protein 6.4 g/dL (6.3-8.2) 10/29/17 21:25 Albumin 3.8 g/dL (3.9-5) L 10/29/17 21:25 Albumin/Globulin Ratio 1.5 % 10/29/17 21:25 Lipase 17 units/L (13-60) 10/29/17 21:25 TSH 41.620 mlU/mL (0.270-4.200) H 10/29/17 21:25 Free T4 0.70 ng/dL (0.76-1.46) L 10/29/17 21:25 Urine Color [place] (Yellow) 10/29/17 21:28 Urine Turbidity Clear (Clear) 10/29/17 21:28 Urine pH 5.0 (5.0-7.0) 10/29/17 21:28 Ur Specific [place] 1.031 (1.003-1.030) H 10/29/17 21: Urine Protein 100 mg/dl mg/dL (Negative) 10/29/17 21: Urine Glucose (UA) >=500 mg/dL (Negative) 10/29/17 21: Urine Ketones Tr mg/dL (Negative) 10/29/17 21: Urine Blood Neg (Negative) 10/29/17 21: Urine Nitrite Neg (Negative) 10/29/17: Urine Bilirubin Neg (Negative) 10/29/17: Urine Urobilinogen 2.0 mg/dL (<2.0) 10/29/17: Ur Leukocyte Esterase Mod (Negative) 10/29/17: Urine WBC (Auto) 38.0 /HPF (0.0-6.0) H 10/29/17: Urine RBC (Auto) 79.0 /HPF (0.0-6.0) 10/29/17: U Epithel Cells (Auto) 1.0 /HPF (0-13.0) 10/29/17: Urine Bacteria (Auto) 2+ /HPF (Negative) 10/29/17: Urine Mucus 1+ /HPF 10/29/17 21: Valproic Acid 47.7 ug/mL (50-100) L 10/29/17:
[2017-11-07] MEDS: LIOTHYRONINE PO SCH (20:08)
[2017-11-07] MEDS: LOVENOX SUB-Q SCH (22:27)
[2017-11-08] MEDS: FLAGYL 500 MG/100 ML 500 MG/100 ML BAG IV SCH ×3 (05:17→21:39)
[2017-11-08] MEDS: KEPPRA PO SCH ×3 (05:17→22:48)
[2017-11-08] MEDS: SYNTHROID FEEDTUBE SCH (05:17)
[2017-11-08 06:27] LABS: Basophils % (Auto) 0.4 % (0.0-1.8); Eosinophils # (Auto) 0.4 K/mm3 (0.0-0.4); Eosinophils % (Auto) 6.5 % (0.0-4.3); Hematocrit 35.9 % (35.5-45.6); Hemoglobin 11.9 gm/dl (11.8-15.2); Lymphocytes # (Auto) 1.4 K/mm3 (1.2-5.4); Lymphocytes % (Auto) 20.9 % (13.4-35.0); Mean Corpuscular HGB Conc 33 % (32-34); Mean Corpuscular Hemoglobin 33 pg (28-32); Mean Corpuscular Volume 99 fl (84-94); Monocytes # (Auto) 0.6 K/mm3 (0.0-0.8); Monocytes % (Auto) 8.7 % (0.0-7.3); Red Blood Count 3.64 M/mm3 (3.65-5.03); Red Cell Distribution Width 14.3 % (13.2-15.2)
[2017-11-08 06:48] LABS: BUN/Creatinine Ratio 27; Blood Urea Nitrogen 16 mg/dL (9-20); Hemolysis Index 30
[2017-11-08 07:14] LABS: Platelet Count 301 K/mm3 (140-440)
[2017-11-08] MEDS: LEVAQUIN 750MG/150ML 750 MG/150 ML BAG IV SCH (09:16)
[2017-11-08] MEDS: DepaKENE Liq FEEDTUBE SCH ×2 (09:17→21:41)
[2017-11-08] MEDS: LIOTHYRONINE PO SCH (09:17)
[2017-11-08] MEDS: SENOKOT S PO SCH ×2 (09:17→21:43)
[2017-11-08] MEDS: VIMPAT PO SCH ×2 (09:17→21:43)
--- NOTE | 2017-11-08 13:17 | Event Note ---
Date: 11/08/17 I was contacted by case management to speak with the sister, Lavonne. There appeared to be some confusion as to our plan. Therefore, I took some time to explain what we had previously discussed and the current plan. I reminded her that we had discussed that she would talk to family about whether they wanted to pursue surgery. She did recall that and said the daughter wishes to move forward with surgery. The 2nd step was to try to optimize him in terms of his thyroid and nutrition before surgery. This would be done in order to minimize his risks around the time of surgery. This, of course, will take time. It will most likely be on the order of weeks. Once he is optimized, then he can return for surgery. However, if an emergency should develop, and it has not so far, then we would move forward with emergency surgery. Until then, we should maximize medical therapy to continue to help him with bowel movements. The plan for surgery would be a subtotal colectomy. She acknowledged understanding and said that was fine. I reminded her that she has my card and she can call me if she has any questions or concerns. She was appreciative. Time=20min
[2017-11-08] MEDS: TRILEPTAL PO SCH ×2 (14:00→21:43)
--- NOTE | 2017-11-08 16:16 | Progress Note ---
Assessment and Plan Assessment and plan: Colon distention/rectosigmoid inflammation - Patient is on IV Flagyl and Levaquin. - bowel enema - Surgery on board Diabetes mellitus type 2 - Sliding scale insulin - Adjust insulin as needed Malnutrition - Patient is on tube feeding now - Optimize his nutrition Hypothyroidism - Patient is on levothyroxine 200 g per day Seizure disorder - Patient is on IV Keppra and Vimpat through NG tube - Neurology following, patient still has some twitching in the upper extremities Hypertension Hypokalemia - Replete potassium - We will check BMP in the morning History Interval history: Patient was seen and evaluated this morning, patient was able to answer yes/ no questions. When asked about abdominal pain he said yes. Hospitalist Physical - Physical exam Narrative exam: Not in cardiopulmonary distress. The patient appeared well nourished and normally developed. Vital signs as documented. Head exam is unremarkable. No scleral icterus . Neck is without jugular venous distension, thyromegaly, or carotid bruits. Lungs are clear to auscultation. Cardiac exam reveals regular rate and Rhythm. First and second heart sounds normal. No murmurs, rubs or gallops. Abdominal exam reveals distended abdomen. Extremities are nonedematous and both femoral and pedal pulses are normal. 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 - Constitutional Vitals: Temp Pulse Resp BP Pulse Ox 97.6 F 83 19 151/88 96 11/08/17 08:59 11/08/17 08:59 11/08/17 08:59 11/08/17 08:59 11/08/17 08:59 General appearance: Present: no acute distress Results - Labs CBC & Chem 7: 11/08/17 06:08 11/08/17 06:08 Labs: Laboratory Last Values WBC 6.8 K/mm3 (4.5-11.0) 11/08/17 06:08 RBC 3.64 M/mm3 (3.65-5.03) L 11/08/17 06:08 Hgb 11.9 gm/dl (11.8-15.2) 11/08/17 06:08 Hct 35.9 % (35.5-45.6) 11/08/17 06:08 MCV 99 fl (84-94) H 11/08/17 06:08 MCH 33 pg (28-32) H 11/08/17 06:08 MCHC 33 % (32-34) 11/08/17 06:08 RDW 14.3 % (13.2-15.2) 11/08/17 06:08 Plt Count 301 K/mm3 (140-440) 11/08/17 06:08 Lymph % (Auto) 20.9 % (13.4-35.0) 11/08/17 06:08 [place] % (Auto) 8.7 % (0.0-7.3) H 11/08/17 06:08 Eos % (Auto) 6.5 % (0.0-4.3) H 11/08/17 06:08 Baso % (Auto) 0.4 % (0.0-1.8) 11/08/17 06:08 Lymph # 1.4 K/mm3 (1.2-5.4) 11/08/17 06:08 [place] # 0.6 K/mm3 (0.0-0.8) 11/08/17 06:08 Eos # 0.4 K/mm3 (0.0-0.4) 11/08/17 06:08 Baso # 0.0 K/mm3 (0.0-0.1) 11/08/17 06:08 Add Manual Diff Complete 10/31/17 05:37 Total Counted 100 10/31/17 05:37 Seg Neutrophils % 63.5 % (40.0-70.0) 11/08/17 06:08 Seg Neuts % (Manual) 58.0 % (40.0-70.0) 10/31/17 05:37 Band Neutrophils % 2.0 % 10/31/17 05:37 Lymphocytes % (Manual) 17.0 % (13.4-35.0) 10/31/17 05:37 Reactive Lymphs % (Man) 0 % 10/31/17 05:37 Monocytes % (Manual) 18.0 % (0.0-7.3) H 10/31/17 05:37 Eosinophils % (Manual) 5.0 % (0.0-4.3) H 10/31/17 05:37 Basophils % (Manual) 0 % (0.0-1.8) 10/31/17 05:37 Metamyelocytes % 0 % 10/31/17 05:37 Myelocytes % 0 % 10/31/17 05:37 Promyelocytes % 0 % 10/31/17 05:37 Blast Cells % 0 % 10/31/17 05:37 Nucleated RBC % 1.0 % (0.0-0.9) H 10/31/17 05:37 Seg Neutrophils # 4.3 K/mm3 (1.8-7.7) 11/08/17 06:08 Seg Neutrophils # Man 5.6 K/mm3 (1.8-7.7) 10/31/17 05:37 Band Neutrophils # 0.2 K/mm3 10/31/17 05:37 Lymphocytes # (Manual) 1.6 K/mm3 (1.2-5.4) 10/31/17 05:37 Abs React Lymphs (Man) 0.0 K/mm3 10/31/17 05:37 Monocytes # (Manual) 1.7 K/mm3 (0.0-0.8) H 10/31/17 05:37 Eosinophils # (Manual) 0.5 K/mm3 (0.0-0.4) H 10/31/17 05:37 Basophils # (Manual) 0.0 K/mm3 (0.0-0.1) 10/31/17 05:37 Metamyelocytes # 0.0 K/mm3 10/31/17 05:37 Myelocytes # 0.0 K/mm3 10/31/17 05:37 Promyelocytes # 0.0 K/mm3 10/31/17 05:37 Blast Cells # 0.0 K/mm3 10/31/17 05:37 WBC Morphology Not Reportable 10/31/17 05:37 Hypersegmented Neuts Not Reportable 10/31/17 05:37 Hyposegmented Neuts Not Reportable 10/31/17 05:37 Hypogranular Neuts Not Reportable 10/31/17 05:37 Smudge Cells Not Reportable 10/31/17 05:37 Toxic Granulation Not Reportable 10/31/17 05:37 Toxic Vacuolation Not Reportable 10/31/17 05:37 Dohle Bodies Not Reportable 10/31/17 05:37 Pelger-Huet Anomaly Not Reportable 10/31/17 05:37 Kaitlyn Rods Not Reportable 10/31/17 05:37 Platelet Estimate Consistent w auto 10/31/17 05:37 Clumped Platelets Not Reportable 10/31/17 05:37 Plt Clumps, EDTA Not Reportable 10/31/17 05:37 Large Platelets Not Reportable 10/31/17 05:37 Giant Platelets Not Reportable 10/31/17 05:37 Platelet Satelliting Not Reportable 10/31/17 05:37 Plt Morphology Comment Not Reportable 10/31/17 05:37 RBC Morphology Not Reportable 10/31/17 05:37 Dimorphic RBCs Not Reportable 10/31/17 05:37 Polychromasia Rare 10/31/17 05:37 Hypochromasia Not Reportable 10/31/17 05:37 Poikilocytosis Not Reportable 10/31/17 05:37 Anisocytosis Not Reportable 10/31/17 05:37 Microcytosis Not Reportable 10/31/17 05:37 Macrocytosis Not Reportable 10/31/17 05:37 Spherocytes Not Reportable 10/31/17 05:37 Pappenheimer Bodies Not Reportable 10/31/17 05:37 Sickle Cells Not Reportable 10/31/17 05:37 Target Cells Not Reportable 10/31/17 05:37 Tear Drop Cells Not Reportable 10/31/17 05:37 Ovalocytes Not Reportable 10/31/17 05:37 Helmet Cells Not Reportable 10/31/17 05:37 [place] Bodies Not Reportable 10/31/17 05:37 [place] Rings Not Reportable 10/31/17 05:37 [place] Cells Not Reportable 10/31/17 05:37 Bite Cells Not Reportable 10/31/17 05:37 Crenated Cell Not Reportable 10/31/17 05:37 Elliptocytes Not Reportable 10/31/17 05:37 Acanthocytes (Spur) Not Reportable 10/31/17 05:37 Rouleaux Not Reportable 10/31/17 05:37 Hemoglobin C Crystals Not Reportable 10/31/17 05:37 Schistocytes Not Reportable 10/31/17 05:37 Malaria parasites Not Reportable 10/31/17 05:37 Dionisio Bodies Not Reportable 10/31/17 05:37 Hem Pathologist Commnt No 10/31/17 05:37 Sodium 143 mmol/L (137-145) 11/08/17 06:08 Potassium 3.9 mmol/L (3.6-5.0) 11/08/17 06:08 Chloride 102.4 mmol/L (98-107) 11/08/17 06:08 Carbon Dioxide 29 mmol/L (22-30) 11/08/17 06:08 Anion Gap 16 mmol/L 11/08/17 06:08 BUN 16 mg/dL (9-20) 11/08/17 06:08 Creatinine 0.6 mg/dL (0.8-1.5) L 11/08/17 06:08 Estimated GFR > 60 ml/min 11/08/17 06:08 BUN/Creatinine Ratio 27 % 11/08/17 06:08 Glucose 164 mg/dL (75-100) H 11/08/17 06:08 POC Glucose 178 (70-105) H 11/08/17 12:19 Calcium 9.0 mg/dL (8.4-10.2) 11/08/17 06:08 Total Bilirubin 0.20 mg/dL (0.1-1.2) 10/29/17 21:25 AST 18 units/L (5-40) 10/29/17 21:25 ALT 18 units/L (7-56) 10/29/17 21:25 Alkaline Phosphatase 143 units/L (35-129) H 10/29/17 21:25 Total Creatine Kinase 269 units/L (55-170) H 11/04/17 13:34 Total Protein 6.4 g/dL (6.3-8.2) 10/29/17 21:25 Albumin 3.8 g/dL (3.9-5) L 10/29/17 21:25 Albumin/Globulin Ratio 1.5 % 10/29/17 21:25 Lipase 17 units/L (13-60) 10/29/17 21:25 TSH 41.620 mlU/mL (0.270-4.200) H 10/29/17 21:25 Free T4 0.70 ng/dL (0.76-1.46) L 10/29/17 21:25 Urine Color [place] (Yellow) 10/29/17 21:28 Urine Turbidity Clear (Clear) 10/29/17 21:28 Urine pH 5.0 (5.0-7.0) 10/29/17 21:28 Ur Specific [place] 1.031 (1.003-1.030) H 10/29/17 21: Urine Protein 100 mg/dl mg/dL (Negative) 10/29/17 21: Urine Glucose (UA) >=500 mg/dL (Negative) 10/29/17 21: Urine Ketones Tr mg/dL (Negative) 10/29/17 21: Urine Blood Neg (Negative) 10/29/17 21: Urine Nitrite Neg (Negative) 10/29/17: Urine Bilirubin Neg (Negative) 10/29/17: Urine Urobilinogen 2.0 mg/dL (<2.0) 10/29/17: Ur Leukocyte Esterase Mod (Negative) 10/29/17: Urine WBC (Auto) 38.0 /HPF (0.0-6.0) H 10/29/17: Urine RBC (Auto) 79.0 /HPF (0.0-6.0) 10/29/17: U Epithel Cells (Auto) 1.0 /HPF (0-13.0) 10/29/17: Urine Bacteria (Auto) 2+ /HPF (Negative) 10/29/17: Urine Mucus 1+ /HPF 10/29/17 21: Valproic Acid 47.7 ug/mL (50-100) L 10/29/17:
[2017-11-08] MEDS: NOVOLOG SUB-Q SCH ×2 (17:02→18:00)
[2017-11-08] MEDS: APRESOLINE IV PRN (17:07)
[2017-11-08] MEDS: LOVENOX SUB-Q SCH (21:42)
[2017-11-09] MEDS: NOVOLOG SUB-Q SCH ×4 (00:19→18:44)
[2017-11-09] MEDS: SYNTHROID FEEDTUBE SCH (05:00)
[2017-11-09] MEDS: KEPPRA PO SCH ×3 (05:25→23:38)
[2017-11-09] MEDS: FLAGYL 500 MG/100 ML 500 MG/100 ML BAG IV SCH ×3 (05:33→23:47)
[2017-11-09 06:44] LABS: BUN/Creatinine Ratio 23; Blood Urea Nitrogen 14 mg/dL (9-20); Calcium 8.7 mg/dL (8.4-10.2); Hemolysis Index 8
[2017-11-09] MEDS: LIOTHYRONINE PO SCH (08:06)
[2017-11-09] MEDS: LEVAQUIN 750MG/150ML 750 MG/150 ML BAG IV SCH (10:00)
[2017-11-09] MEDS ORDERED: POTASSIUM CHLORIDE FEEDTUBE ONE (10:00)
[2017-11-09] MEDS: DepaKENE Liq FEEDTUBE SCH ×2 (10:58→23:24)
[2017-11-09] MEDS: TRILEPTAL PO SCH ×2 (10:58→23:48)
[2017-11-09] MEDS: VIMPAT PO SCH ×2 (10:58→23:25)
[2017-11-09] MEDS: SENOKOT S PO SCH ×2 (10:59→23:25)
--- NOTE | 2017-11-09 11:41 | Vascular Lab Report ---
LEFT UPPER EXTREMITY VENOUS DUPLEX: REASON FOR EXAM: Pain and swelling of the left upper extremity COMMENTS ON THE LEFT: All arm veins visualized are freely compressible without evidence of internal echogenicity. The subclavian and internal jugular veins are free of thrombus. Flow is spontaneous and phasic throughout COMMENTS ON THE RIGHT: A limited study of the jugular and subclavian veins shows no evidence of thrombus. IMPRESSION: No evidence of acute or chronic deep venous thrombosis in the left upper extremity.
--- NOTE | 2017-11-09 13:56 | Progress Note ---
Assessment and Plan Assessment and plan: Colon distention/rectosigmoid inflammation - Patient is on IV Flagyl and Levaquin. - bowel enema - Surgery on board Diabetes mellitus type 2 - Sliding scale insulin - Adjust insulin as needed Malnutrition - Patient is on tube feeding now - Optimize his nutrition Hypothyroidism - Patient is on levothyroxine 200 g per day Seizure disorder - Patient is on IV Keppra and Vimpat through NG tube - Neurology following, patient still has some twitching in the upper extremities Hypertension Hypokalemia - Replete potassium - We will check BMP in the morning Disposition - Plan is discharge home, his sister is not at home today and will discharge him tomorrow. History Interval history: Patient was seen and evaluated this morning, patient was able to answer yes/ no questions. When asked about abdominal pain he said yes. Had bowel movement. Hospitalist Physical - Physical exam Narrative exam: Not in cardiopulmonary distress. The patient appeared well nourished and normally developed. Vital signs as documented. Head exam is unremarkable. No scleral icterus . Neck is without jugular venous distension, thyromegaly, or carotid bruits. Lungs are clear to auscultation. Cardiac exam reveals regular rate and Rhythm. First and second heart sounds normal. No murmurs, rubs or gallops. Abdominal exam reveals distended abdomen. Extremities are nonedematous and both femoral and pedal pulses are normal. 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 That is his baseline. - Constitutional Vitals: Temp Pulse Resp BP Pulse Ox 97.7 F 75 18 132/71 99 11/09/17 08:38 11/09/17 08:38 11/09/17 08:38 11/09/17 08:38 11/09/17 08:38 General appearance: Present: no acute distress Results - Labs CBC & Chem 7: 11/08/17 06:08 11/09/17 06:02 Labs: Laboratory Last Values WBC 6.8 K/mm3 (4.5-11.0) 11/08/17 06:08 RBC 3.64 M/mm3 (3.65-5.03) L 11/08/17 06:08 Hgb 11.9 gm/dl (11.8-15.2) 11/08/17 06:08 Hct 35.9 % (35.5-45.6) 11/08/17 06:08 MCV 99 fl (84-94) H 11/08/17 06:08 MCH 33 pg (28-32) H 11/08/17 06:08 MCHC 33 % (32-34) 11/08/17 06:08 RDW 14.3 % (13.2-15.2) 11/08/17 06:08 Plt Count 301 K/mm3 (140-440) 11/08/17 06:08 Lymph % (Auto) 20.9 % (13.4-35.0) 11/08/17 06:08 Douglas % (Auto) 8.7 % (0.0-7.3) H 11/08/17 06:08 Eos % (Auto) 6.5 % (0.0-4.3) H 11/08/17 06:08 Baso % (Auto) 0.4 % (0.0-1.8) 11/08/17 06:08 Lymph # 1.4 K/mm3 (1.2-5.4) 11/08/17 06:08 Douglas # 0.6 K/mm3 (0.0-0.8) 11/08/17 06:08 Eos # 0.4 K/mm3 (0.0-0.4) 11/08/17 06:08 Baso # 0.0 K/mm3 (0.0-0.1) 11/08/17 06:08 Add Manual Diff Complete 10/31/17 05:37 Total Counted 100 10/31/17 05:37 Seg Neutrophils % 63.5 % (40.0-70.0) 11/08/17 06:08 Seg Neuts % (Manual) 58.0 % (40.0-70.0) 10/31/17 05:37 Band Neutrophils % 2.0 % 10/31/17 05:37 Lymphocytes % (Manual) 17.0 % (13.4-35.0) 10/31/17 05:37 Reactive Lymphs % (Man) 0 % 10/31/17 05:37 Monocytes % (Manual) 18.0 % (0.0-7.3) H 10/31/17 05:37 Eosinophils % (Manual) 5.0 % (0.0-4.3) H 10/31/17 05:37 Basophils % (Manual) 0 % (0.0-1.8) 10/31/17 05:37 Metamyelocytes % 0 % 10/31/17 05:37 Myelocytes % 0 % 10/31/17 05:37 Promyelocytes % 0 % 10/31/17 05:37 Blast Cells % 0 % 10/31/17 05:37 Nucleated RBC % 1.0 % (0.0-0.9) H 10/31/17 05:37 Seg Neutrophils # 4.3 K/mm3 (1.8-7.7) 11/08/17 06:08 Seg Neutrophils # Man 5.6 K/mm3 (1.8-7.7) 10/31/17 05:37 Band Neutrophils # 0.2 K/mm3 10/31/17 05:37 Lymphocytes # (Manual) 1.6 K/mm3 (1.2-5.4) 10/31/17 05:37 Abs React Lymphs (Man) 0.0 K/mm3 10/31/17 05:37 Monocytes # (Manual) 1.7 K/mm3 (0.0-0.8) H 10/31/17 05:37 Eosinophils # (Manual) 0.5 K/mm3 (0.0-0.4) H 10/31/17 05:37 Basophils # (Manual) 0.0 K/mm3 (0.0-0.1) 10/31/17 05:37 Metamyelocytes # 0.0 K/mm3 10/31/17 05:37 Myelocytes # 0.0 K/mm3 10/31/17 05:37 Promyelocytes # 0.0 K/mm3 10/31/17 05:37 Blast Cells # 0.0 K/mm3 10/31/17 05:37 WBC Morphology Not Reportable 10/31/17 05:37 Hypersegmented Neuts Not Reportable 10/31/17 05:37 Hyposegmented Neuts Not Reportable 10/31/17 05:37 Hypogranular Neuts Not Reportable 10/31/17 05:37 Smudge Cells Not Reportable 10/31/17 05:37 Toxic Granulation Not Reportable 10/31/17 05:37 Toxic Vacuolation Not Reportable 10/31/17 05:37 Dohle Bodies Not Reportable 10/31/17 05:37 Pelger-Huet Anomaly Not Reportable 10/31/17 05:37 Kaitlyn Rods Not Reportable 10/31/17 05:37 Platelet Estimate Consistent w auto 10/31/17 05:37 Clumped Platelets Not Reportable 10/31/17 05:37 Plt Clumps, EDTA Not Reportable 10/31/17 05:37 Large Platelets Not Reportable 10/31/17 05:37 Giant Platelets Not Reportable 10/31/17 05:37 Platelet Satelliting Not Reportable 10/31/17 05:37 Plt Morphology Comment Not Reportable 10/31/17 05:37 RBC Morphology Not Reportable 10/31/17 05:37 Dimorphic RBCs Not Reportable 10/31/17 05:37 Polychromasia Rare 10/31/17 05:37 Hypochromasia Not Reportable 10/31/17 05:37 Poikilocytosis Not Reportable 10/31/17 05:37 Anisocytosis Not Reportable 10/31/17 05:37 Microcytosis Not Reportable 10/31/17 05:37 Macrocytosis Not Reportable 10/31/17 05:37 Spherocytes Not Reportable 10/31/17 05:37 Pappenheimer Bodies Not Reportable 10/31/17 05:37 Sickle Cells Not Reportable 10/31/17 05:37 Target Cells Not Reportable 10/31/17 05:37 Tear Drop Cells Not Reportable 10/31/17 05:37 Ovalocytes Not Reportable 10/31/17 05:37 Helmet Cells Not Reportable 10/31/17 05:37 [place] Bodies Not Reportable 10/31/17 05:37 [place] Rings Not Reportable 10/31/17 05:37 Gregory Cells Not Reportable 10/31/17 05:37 Bite Cells Not Reportable 10/31/17 05:37 Crenated Cell Not Reportable 10/31/17 05:37 Elliptocytes Not Reportable 10/31/17 05:37 Acanthocytes (Spur) Not Reportable 10/31/17 05:37 Rouleaux Not Reportable 10/31/17 05:37 Hemoglobin C Crystals Not Reportable 10/31/17 05:37 Schistocytes Not Reportable 10/31/17 05:37 Malaria parasites Not Reportable 10/31/17 05:37 Dionisio Bodies Not Reportable 10/31/17 05:37 Hem Pathologist Commnt No 10/31/17 05:37 Sodium 138 mmol/L (137-145) 11/09/17 06:02 Potassium 3.4 mmol/L (3.6-5.0) L 11/09/17 06:02 Chloride 97.2 mmol/L (98-107) L 11/09/17 06:02 Carbon Dioxide 30 mmol/L (22-30) 11/09/17 06:02 Anion Gap 14 mmol/L 11/09/17 06:02 BUN 14 mg/dL (9-20) 11/09/17 06:02 Creatinine 0.6 mg/dL (0.8-1.5) L 11/09/17 06:02 Estimated GFR > 60 ml/min 11/09/17 06:02 BUN/Creatinine Ratio 23 % 11/09/17 06:02 Glucose 151 mg/dL (75-100) H 11/09/17 06:02 POC Glucose 157 (70-105) H 11/09/17 11:58 Calcium 8.7 mg/dL (8.4-10.2) 11/09/17 06:02 Total Bilirubin 0.20 mg/dL (0.1-1.2) 10/29/17 21:25 AST 18 units/L (5-40) 10/29/17 21:25 ALT 18 units/L (7-56) 10/29/17 21:25 Alkaline Phosphatase 143 units/L (35-129) H 10/29/17 21:25 Total Creatine Kinase 269 units/L (55-170) H 11/04/17 13:34 Total Protein 6.4 g/dL (6.3-8.2) 10/29/17 21:25 Albumin 3.8 g/dL (3.9-5) L 10/29/17 21:25 Albumin/Globulin Ratio 1.5 % 10/29/17 21:25 Lipase 17 units/L (13-60) 10/29/17 21:25 TSH 41.620 mlU/mL (0.270-4.200) H 10/29/17 21:25 Free T4 0.70 ng/dL (0.76-1.46) L 10/29/17 21:25 Urine Color [place] (Yellow) 10/29/17 21:28 Urine Turbidity Clear (Clear) 10/29/17 21:28 Urine pH 5.0 (5.0-7.0) 10/29/17: Ur Specific [place] 1.031 (1.003-1.030) H 10/29/17: Urine Protein 100 mg/dl mg/dL (Negative) 10/29/17 Urine Glucose (UA) >=500 mg/dL (Negative) 10/29/17: Urine Ketones Tr mg/dL (Negative) 10/29/17 Urine Blood Neg (Negative) 10/29/17: Urine Nitrite Neg (Negative) 10/29/17: Urine Bilirubin Neg (Negative) 10/29/17 Urine Urobilinogen 2.0 mg/dL (<2.0) 10/29/17 Ur Leukocyte Esterase Mod (Negative) 10/29/17: Urine WBC (Auto) 38.0 /HPF (0.0-6.0) H 10/29/17: Urine RBC (Auto) 79.0 /HPF (0.0-6.0) 10/29/17: U Epithel Cells (Auto) 1.0 /HPF (0-13.0) 10/29/17 Urine Bacteria (Auto) 2+ /HPF (Negative) 10/29/17 Urine Mucus 1+ /HPF 10/29/17: Valproic Acid 47.7 ug/mL (50-100) L 10/29/17:
[2017-11-09] MEDS: LOVENOX SUB-Q SCH (23:24)
[2017-11-10] MEDS: NOVOLOG SUB-Q SCH ×4 (01:20→18:30)
[2017-11-10] MEDS: SYNTHROID FEEDTUBE SCH (05:22)
[2017-11-10] MEDS: KEPPRA PO SCH ×2 (05:22→14:00)
[2017-11-10] MEDS: FLAGYL 500 MG/100 ML 500 MG/100 ML BAG IV SCH ×2 (05:40→14:00)
[2017-11-10] MEDS: LIOTHYRONINE PO SCH (08:04)
[2017-11-10] MEDS: TRILEPTAL PO SCH (10:00)
[2017-11-10] MEDS: LEVAQUIN 750MG/150ML 750 MG/150 ML BAG IV SCH (10:00)
[2017-11-10] MEDS: VIMPAT PO SCH (10:00)
[2017-11-10] MEDS: DepaKENE Liq FEEDTUBE SCH (10:02)
[2017-11-10] MEDS: SENOKOT S PO SCH (10:02)
--- NOTE | 2017-11-10 12:49 | Discharge Summary ---
Providers - Providers Date of Admission: 10/30/17 03:25 Attending physician: GIOVANI PARSONS MD 10/30/17 03:26 Consult to Physician [CONS] Routine Consulting Provider: JOEL VGEA Reason For Exam: colnic distemnsion Notified:: executive legal secretary pl call 10/30/17 11:18 Consult to Physician [CONS] Routine Consulting Provider: SYDNEY OBRIEN Reason For Exam: colon distention Place consult to:: gi Notified:: office Phone number called:: [phone] Was contact made?: Yes If yes, spoke with:: sendy Time called:: 12:08 10/30/17 11:30 Consult to Wound/ET Nurse [CONS] Urgent Reason For Exam: wound eval 11/03/17 10:34 Consult to Dietitian/Nutrition [CONS] Routine Physician Instructions: Assess nutrtn needs, initiate, modify, manage TF Reason For Exam: Reason for Consult: Write/Manage Tube Feeding Reason for Consult: Write/Manage Tube Feeding 11/03/17 11:21 Consult to Physician [CONS] Routine Consulting Provider: ARNAV TOM Reason For Exam: sz d/o Place consult to:: dago Notified:: Dr Tom Phone number called:: on unit Was contact made?: Yes Time called:: 11:47 11/08/17 15:22 Consult to Wound/ET Nurse [CONS] Routine Reason For Exam: wound eval Primary care physician: RANDELL STEVENS Hospitalization Reason for admission: constipation, abdominal distension Condition: Stable Hospital course: This is a 62-year-old man with history of hypothyroidism, diabetes, seizure, renal failure was discharged from the hospital on October 26. He returned today because his abdomen is more distended than it was when he was in the hospital. History is per the daughter at bedside, patient is unable to give a history. She also stated that he has not had a bowel movement since discharge. Patient was admitted to the floor and GI and surgery was consulted, recommended conservative management. Enema was done. Patient had all movements. Surgery said wound to colectomy once his nutrition and hypothyroidism is optimized. Patient is noncommunicative at baseline, bedbound and I have discussed with sister hospice option but she declined. Patient was given MiraLAX and other laxatives at the time of discharge. Patient has PEG tube, and advised to continue on his medications. Patient was at his baseline at the time of discharge. Surgery Dr. Vega discussed in detail about the management plan with his sister and he gave his contact information. Disposition: [id number] TO HOME OR SELFCARE Time spent for discharge: 31 minutes - Discharge Diagnoses (1) Hypothyroidism Status: Chronic (2) Colon distention Status: Chronic (3) Colonic inertia Status: Chronic (4) Malnutrition of moderate degree (Thorpe: 60% to less than 75% of standard weight) Status: Acute (5) Debility Status: Acute (6) Discharge planning issues Status: Chronic (7) Hypertension Status: Chronic Qualifiers: Hypertension type: essential hypertension Qualified Code(s): I10 - Essential (primary) hypertension (8) Seizure disorder Status: Chronic Core Measure Documentation - Palliative Care Palliative Care/ Comfort Measures: Not Applicable - Core Measures Any of the following diagnoses?: none Exam - Physical Exam Narrative exam: Not in cardiopulmonary distress. The patient appeared well nourished and normally developed. Vital signs as documented. Head exam is unremarkable. No scleral icterus . Neck is without jugular venous distension, thyromegaly, or carotid bruits. Lungs are clear to auscultation. Cardiac exam reveals regular rate and Rhythm. First and second heart sounds normal. No murmurs, rubs or gallops. Abdominal exam reveals distended abdomen. Extremities are nonedematous and both femoral and pedal pulses are normal. 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 That is his baseline. - Constitutional Vitals: Temp Pulse Resp BP Pulse Ox 98.4 F 79 22 146/63 95 11/10/17 08:48 11/10/17 08:48 11/10/17 10:00 11/10/17 08:48 11/10/17 08:48 Plan Activity: other (immobile) Weight Bearing Status: Non-Weight Bearing Diet: per dietitian instruction Follow up with: RANDELL STEVENS MD [Primary Care Provider] - 7 Days JOEL VEGA MD [Staff Physician] - 14 Days Prescriptions: Polyethylene Glycol 3350 [Miralax 3350] 17 gm PO BID #30 packet Sennosides/Docusate [Senokot S] 1 tab PO Q12HR #30 tablet
[2017-11-10 20:46] VITALS: BP 170/90
== END 2017-11-10 20:56 | disposition home or self-care (01) | DRG 394 ==
LOC: ED 20:41 → 4A 10-30 03:25 → 3A 11-07 18:42 → UNDODISIN 11-09 18:45
PROVIDERS: ADMIT Internal Medicine; ATTEND Internal Medicine
DX: K63.89 Other specified diseases of intestine (principal); E87.1 Hypo-osmolality and hyponatremia; E44.0 Moderate protein-calorie malnutrition; N39.0 Urinary tract infection, site not specified; E11.9 Type 2 diabetes mellitus without complications; E03.9 Hypothyroidism, unspecified; I10 Essential (primary) hypertension; Z86.73 Personal history of transient ischemic attack (TIA), and cerebral infarction without residual deficits; E78.00 Pure hypercholesterolemia, unspecified; Z79.4 Long term (current) use of insulin; Z82.49 Family history of ischemic heart disease and other diseases of the circulatory system; G40.909 Epilepsy, unspecified, not intractable, without status epilepticus; Z68.28 Body mass index [BMI] 28.0-28.9, adult; E87.6 Hypokalemia
CPT/HCPCS: 36415; 70450; 74018; 74177; 74270; 80048; 80053; 80164; 81001; 82550; 82962; 83690; 84439; 84443; 85007; 85025; 93005; 93010; 95819; 96365; 96375; C9254; J0360; J1650; J1815; J1953; J1956; J2060; J2405; J3480; J7050; Q9963; Q9967

== ENCOUNTER 2018-03-09 13:18 | Inpatient (IN) | payer MEDICARE, OTHER ==
[2018-03-09] MEDS ORDERED: DUONEB *Not for PRN Use IH ONE (18:12)
[2018-03-09] MEDS ORDERED: KEPPRA 1,000 MG/NS 0.75% 100ML 1,000 MG/100 ML BAG IV ONE (18:12)
[2018-03-09] MEDS ORDERED: BABY ASPIRIN PO ONE (18:29)
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
[2018-03-09 19:11] LABS: Basophils % (Auto) 0.5 % (0.0-1.8); Eosinophils # (Auto) 0.5 K/mm3 (0.0-0.4); Eosinophils % (Auto) 6.5 % (0.0-4.3); Hematocrit 45.4 % (35.5-45.6); Hemoglobin 15.4 gm/dl (11.8-15.2); Lymphocytes # (Auto) 1.7 K/mm3 (1.2-5.4); Lymphocytes % (Auto) 20.9 % (13.4-35.0); Mean Corpuscular HGB Conc 34 % (32-34); Mean Corpuscular Hemoglobin 33 pg (28-32); Mean Corpuscular Volume 97 fl (84-94); Monocytes # (Auto) 0.9 K/mm3 (0.0-0.8); Monocytes % (Auto) 10.9 % (0.0-7.3); Platelet Count 149 K/mm3 (140-440); Red Blood Count 4.67 M/mm3 (3.65-5.03); Red Cell Distribution Width 15.6 % (13.2-15.2)
--- NOTE | 2018-03-09 19:19 | XRay Report ---
FINAL REPORT PROCEDURE: XR CHEST 1V AP TECHNIQUE: Chest radiograph anteroposterior view. CPT 09931 HISTORY: chest pain COMPARISON: Prior chest x-ray 07/28/2015 FINDINGS: Support line seen on the prior study have all been removed. The heart is enlarged. Pulmonary vasculature appears mildly distended and slightly ill-defined. Interstitial markings appear mildly coarsened. Lungs are mildly hypoventilated. Right diaphragm is elevated more than the left. No effusions are seen. No acute bony abnormalities are identified. IMPRESSION: Cardiomegaly with mild pulmonary venous hypertension changes. Interstitial markings mildly prominent.. This may be an artifact due to poor inspiratory effort. I cannot exclude mild pulmonary edema. No effusions or focal infiltrates are identified. Right diaphragm is chronically elevated..
[2018-03-09 19:20] LABS: BUN/Creatinine Ratio 23; Blood Urea Nitrogen 18 mg/dL (9-20); Calcium 9.4 mg/dL (8.4-10.2); Hemolysis Index 8
[2018-03-09] MEDS ORDERED: ZOFRAN IV PRN (22:50)
[2018-03-09] MEDS ORDERED: TYLENOL PO PRN (22:50)
[2018-03-09] MEDS ORDERED: SODIUM CHLORIDE FLUSH SYRINGE 10 ML IV PRN (22:50)
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
[2018-03-09] MEDS ORDERED: DUONEB *Not for PRN Use IH (22:56)
[2018-03-09] MEDS ORDERED: D5NS 1,000 ML IV ONE (23:30)
[2018-03-09] MEDS: D5NS 1,000 ML IV SCH (23:37)
[2018-03-10] MEDS: D5NS 1,000 ML IV SCH (03:00)
[2018-03-10] MEDS: MORPHINE IV PRN (03:01)
[2018-03-10] MEDS ORDERED: NORMODYNE IV PRN (04:14)
[2018-03-10] MEDS ORDERED: VALPROIC ACID NGTUBE SCH (07:30)
[2018-03-10] MEDS ORDERED: INSULIN ASPART 6 UNIT SQ SCH (07:30)
[2018-03-10] MEDS: HumaLOG SUB-Q SCH ×6 (08:22→21:39)
[2018-03-10 08:41] LABS: Monocytes # (Auto) 0.2 K/mm3 (0.0-0.8); Monocytes % (Auto) 3.1 % (0.0-7.3)
[2018-03-10 09:03] LABS: Basophils % (Auto) 0.1 % (0.0-1.8); Hematocrit 48.3 % (35.5-45.6); Hemoglobin 16.1 gm/dl (11.8-15.2); Mean Corpuscular HGB Conc 33 % (32-34); Mean Corpuscular Hemoglobin 33 pg (28-32); Mean Corpuscular Volume 98 fl (84-94); Platelet Count 162 K/mm3 (140-440); Red Blood Count 4.94 M/mm3 (3.65-5.03); Red Cell Distribution Width 15.7 % (13.2-15.2)
[2018-03-10 09:04] LABS: Lymphocytes # (Auto) 0.9 K/mm3 (1.2-5.4)
--- NOTE | 2018-03-10 09:15 | XRay Report ---
KUB: 03/10/18 08:17:00 CLINICAL: Tube placement. FINDINGS: A feeding tube tip is in the proximal stomach. IMPRESSION: Feeding tube tip in the proximal stomach. Recommend advancement by 10-15 cm for optimal positioning.
[2018-03-10 09:16] LABS: Alanine Aminotransferase 15 units/L (7-56); Albumin 3.9 g/dL (3.9-5); BUN/Creatinine Ratio 21; Blood Urea Nitrogen 15 mg/dL (9-20); Calcium 9.8 mg/dL (8.4-10.2); Hemolysis Index 3
[2018-03-10] MEDS ORDERED: TRILEPTAL FEEDTUBE SCH (10:00)
[2018-03-10] MEDS ORDERED: NON-FORMULARY (Levetiracetam [Keppra Tab] 1,000 MG) NGTUBE SCH (10:00)
[2018-03-10] MEDS ORDERED: NON-FORMULARY (Levothyroxine (Nf) [Synthroid (Nf)] 200 MCG) NGTUBE SCH (10:00)
[2018-03-10] MEDS ORDERED: NON-FORMULARY (Liothyronine Sodium [Cytomel] 5 MCG) NGTUBE SCH (10:00)
[2018-03-10] MEDS ORDERED: CATAPRES-TTS PATCH TD SCH (10:00)
[2018-03-10] MEDS: DUONEB *Not for PRN Use IH SCH ×4 (10:47→20:29)
[2018-03-10] MEDS: LEVAQUIN 750MG/150ML 750 MG/150 ML BAG IV SCH (10:48)
[2018-03-10] MEDS: DepaKENE Liq FEEDTUBE SCH ×2 (10:48→21:33)
[2018-03-10] MEDS: NORVASC FEEDTUBE SCH (10:50)
[2018-03-10] MEDS: KEPPRA PO SCH ×2 (10:50→21:34)
[2018-03-10] MEDS: APRESOLINE PO SCH ×3 (10:50→21:34)
[2018-03-10] MEDS: PEPCID IV SCH ×2 (10:50→21:34)
[2018-03-10] MEDS: HEPARIN SUB-Q SCH ×2 (10:51→21:35)
[2018-03-10] MEDS: TRILEPTAL PO SCH ×2 (10:52→21:33)
[2018-03-10] MEDS: SODIUM CHLORIDE FLUSH SYRINGE 10 ML IV SCH ×2 (10:55→21:35)
[2018-03-10] MEDS: LIORESAL PO SCH ×3 (10:57→21:34)
--- NOTE | 2018-03-10 11:17 | Progress Note ---
Assessment and Plan / Acute hypoxemic respiratory failure Probably pneumonia versus CHF We'll get echocardiogram IV antibiotics, Duonebs / Dislodged gastrostomy tube GI consulted Nothing by mouth till then / Hypothyroidism Continue Synthroid / Muscle spasm cont baclofen /Hypertension Continue amlodipine and hydralazine / Seizure disorder Continue Keppra and valproic acid / Insulin dependent diabetes mellitus Continue insulin and coverage Check hemoglobin A1c / DVT prophylaxis Heparin 5000 every 12 Brief History: 62-year-old male with history of cerebrovascular accident and aphasia sent in for increasing shortness of breath and dislodged and G-tube. Hospitalist Physical exam: GENERAL: elderly male lying on bed appeared to be in no discomfort. HEENT: Normocephalic. Atraumatic. No conjunctival congestion or icterus. Patient has dry mucous membranes. NECK: Supple. Trachea midline. CHEST/LUNGS: breathing nonlabored. No wheezes crackles or rhonchi. HEART/CARDIOVASCULAR: Regular in rate and rhythm. S1 and S2 positive. ABDOMEN: Abdomen is soft, nontender. Patient has normal bowel sounds. SKIN: There is no rash. Warm and dry. NEURO: does not Follow command. + right hand tremor MUSCULOSKELETAL: No joint effusion or tenderness. EXTRIMITY: No edema, no cyanosis or clubbing. PSYCH: unable to assess Subjective Date of service: 03/10/18 Interval history: Patient seen and examined. Medical records and medication list reviewed. No acute event overnight noted by the RN. Patient waiting for PEG tube placement, on iv fluid Objective - Constitutional Vitals: Vital Signs - 12hr 03/09/18 03/10/18 03/10/18 23:27 01:00 01:58 Temperature Pulse Rate 71 78 Respiratory 20 20 Rate Blood Pressure 164/88 Blood Pressure 191/104 156/84 [Left] O2 Sat by Pulse 94 97 Oximetry 03/10/18 03/10/18 03/10/18 03:46 04:40 06:47 Temperature 97.3 F L Pulse Rate 61 Respiratory 18 18 Rate Blood Pressure 202/130 Blood Pressure 152/91 [Left] O2 Sat by Pulse Oximetry 03/10/18 03/10/18 03/10/18 07:34 10:50 10:58 Temperature 97.4 F L 97.5 F L Pulse Rate 62 85 Respiratory 22 22 Rate Blood Pressure 168/102 160/100 193/114 Blood Pressure [Left] O2 Sat by Pulse 93 95 Oximetry - Labs CBC & Chem 7: 03/10/18 07:59 03/10/18 07:59 Labs: Abnormal lab results 03/09/18 03/09/18 03/09/18 Range/Units 18:54 18:54 20:25 Hgb 15.4 H (11.8-15.2) gm/dl Hct (35.5-45.6) % MCV 97 H (84-94) fl MCH 33 H (28-32) pg RDW 15.6 H (13.2-15.2) % [place] % (Auto) 10.9 H (0.0-7.3) % Eos % (Auto) 6.5 H (0.0-4.3) % Lymph # (1.2-5.4) K/mm3 [place] # 0.9 H (0.0-0.8) K/mm3 Eos # 0.5 H (0.0-0.4) K/mm3 Seg Neutrophils % (40.0-70.0) % POC ABG pCO2 48.0 H (35-45) POC ABG pO2 64 L (80-105) Sodium 134 L (137-145) mmol/L Chloride 93.5 L (98-107) mmol/L Creatinine (0.8-1.5) mg/dL Glucose (75-100) mg/dL POC Glucose (70-105) 03/09/18 03/10/18 03/10/18 Range/Units 23:19 07:59 07:59 Hgb 16.1 H (11.8-15.2) gm/dl Hct 48.3 H (35.5-45.6) % MCV 98 H (84-94) fl MCH 33 H (28-32) pg RDW 15.7 H (13.2-15.2) % [place] % (Auto) (0.0-7.3) % Eos % (Auto) (0.0-4.3) % Lymph # 0.9 L (1.2-5.4) K/mm3 [place] # (0.0-0.8) K/mm3 Eos # (0.0-0.4) K/mm3 Seg Neutrophils % 78.8 H (40.0-70.0) % POC ABG pCO2 (35-45) POC ABG pO2 (80-105) Sodium (137-145) mmol/L Chloride 96.0 L (98-107) mmol/L Creatinine 0.7 L (0.8-1.5) mg/dL Glucose 132 H (75-100) mg/dL POC Glucose 128 H (70-105) 03/10/18 Range/Units 08:08 Hgb (11.8-15.2) gm/dl Hct (35.5-45.6) % MCV (84-94) fl MCH (28-32) pg RDW (13.2-15.2) % [place] % (Auto) (0.0-7.3) % Eos % (Auto) (0.0-4.3) % Lymph # (1.2-5.4) K/mm3 [place] # (0.0-0.8) K/mm3 Eos # (0.0-0.4) K/mm3 Seg Neutrophils % (40.0-70.0) % POC ABG pCO2 (35-45) POC ABG pO2 (80-105) Sodium (137-145) mmol/L Chloride (98-107) mmol/L Creatinine (0.8-1.5) mg/dL Glucose (75-100) mg/dL POC Glucose 134 H (70-105)
[2018-03-10] MEDS ORDERED: PANCREAZE DR 10,500 UNIT FEEDTUBE PRN (11:51)
[2018-03-10] MEDS ORDERED: SODIUM BICARBONATE FEEDTUBE PRN (11:51)
[2018-03-10] MEDS ORDERED: SIMPLE SYRUP FEEDTUBE PRN ×2 (11:51)
[2018-03-10] MEDS ORDERED: ATIVAN IV PRN (12:51)
--- NOTE | 2018-03-10 16:38 | Consultation ---
History of Present Illness - Reason for Consult Consult date: 03/10/18 G-tube dislodgement - History of Present Illness Mr. 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 His sister is in the room. Because of his mental status, he had a feeding tube placed approximately 2 years ago. On March 08, a physician came to the house and replace the feeding tube. The next day, the sister says she found the tube lying outside. She did not see a balloon to the tube, and thinks the balloon may have been left inside. He was therefore brought to the emergency room. Here, the ER physician was unable to replace the feeding tube. Patient was therefore admitted. Sister denies fevers chills or sweats. There's been no bleeding. Patient has bowel movements on a twice a day to every other day basis. 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 denies: smoking, alcohol abuse Family history: no significant family history Medications and Allergies Allergies Allergy/AdvReac Type Severity Reaction Status Date / Time No Known Allergies Allergy Verified 10/18/17 18:55 Home Medications Medication Instructions Recorded Confirmed Last Taken Type Baclofen [Lioresal] 5 mg PO TID 10/18/17 03/09/18 Unknown History Levothyroxine (Nf) [Synthroid (Nf)] 200 mcg NGTUBE QAM 10/18/17 03/09/18 Unknown History Liothyronine Sodium [Cytomel] 5 mcg NGTUBE QAM 10/18/17 03/09/18 10/30/17 History OXcarbazepine [Trileptal] 900 mg NGTUBE BID 10/18/17 03/09/18 Unknown History Valproic Acid (As Sodium Salt) 20 ml NGTUBE Q12H 10/18/17 03/09/18 Unknown History [Depakene] amLODIPine [Norvasc] 10 mg NGTUBE DAILY 10/18/17 03/09/18 Unknown History levETIRAcetam [Keppra TAB] 1,000 mg NGTUBE BID 10/18/17 03/09/18 Unknown History Insulin Aspart [NovoLOG Flexpen] See Protocol SQ Q6H 30 Days 10/26/17 03/09/18 Unknown Rx insuln.pen Insulin NPH/Regular [NovoLIN 70/30] 18 unit SQ BIDDIAB 30 Days ml 10/26/17 Unknown Rx hydrALAZINE [Apresoline TAB] 25 mg PO Q8HR #90 tablet 10/26/17 03/09/18 Unknown Rx Polyethylene Glycol 3350 [Miralax 17 gm PO BID #30 packet 11/10/17 03/09/18 Unknown Rx 3350] Sennosides/Docusate [Senokot S] 1 tab PO Q12HR #30 tablet 11/10/17 03/09/18 Unknown Rx Active Meds: Active Medications Acetaminophen (Tylenol) 650 mg PO Q4H PRN PRN Reason: Pain MILD(1-3)/Fever >100.5/MARQUEZ Albuterol/Ipratropium (Duoneb *Not For Prn Use*) 1 ampul IH Q3H PRN PRN Reason: Wheezing Albuterol/Ipratropium (Duoneb *Not For Prn Use*) 1 ampul IH QIDRT [facility] Last Admin: 03/10/18 16:12 Dose: 1 ampul Amlodipine Besylate (Norvasc) 10 mg FEEDTUBE DAILY [facility] Last Admin: 03/10/18 10:50 Dose: 10 mg Lipase/Protease/Amylase (Pancreaze Dr 10,500 Unit) 1 each FEEDTUBE PRN PRN PRN Reason: For Clogged Feeding Tube Baclofen (Lioresal) 5 mg PO TID [facility] Last Admin: 03/10/18 16:21 Dose: 5 mg Clonidine HCl (Catapres-Tts Patch) 0.3 mg TD QWEEK [facility] Last Admin: 03/10/18 10:51 Dose: 0.3 mg Famotidine (Pepcid) 20 mg IV BID [facility] Last Admin: 03/10/18 10:50 Dose: 20 mg Heparin Sodium (Porcine) (Heparin) 5,000 unit SUB-Q Q12HR [facility] Last Admin: 03/10/18 10:51 Dose: 5,000 unit Hydralazine HCl (Apresoline) 25 mg PO Q8HR [facility] Last Admin: 03/10/18 16:20 Dose: 25 mg Dextrose/Sodium Chloride (D5ns) 1,000 mls @ 75 mls/hr IV DIRECT [facility] Last Admin: 03/10/18 03:00 Dose: 75 mls/hr Levofloxacin/Dextrose (Levaquin 750mg/150ml) 750 mg in 150 mls @ 100 mls/hr IV Q24HR [facility]; Protocol Last Admin: 03/10/18 10:48 Dose: 100 mls/hr Insulin Human Lispro (Humalog) 0 unit SUB-Q Q6HR [facility]; Protocol Last Admin: 03/10/18 12:00 Dose: 2 unit Insulin Human Lispro (Humalog) 6 unit SUB-Q Q6H [facility] Last Admin: 03/10/18 14:42 Dose: 6 unit Labetalol HCl (Normodyne) 10 mg IV Q6HR PRN PRN Reason: Hypertension Levetiracetam (Keppra) 1,000 mg PO BID [facility] Last Admin: 03/10/18 10:50 Dose: 1,000 mg Levothyroxine Sodium (Synthroid) 200 mcg PO DAILY@0600 [facility] Lorazepam (Ativan) 1 mg IV Q4H PRN PRN Reason: Agitation Miscellaneous Medication (Liothyronine Sodium [Cytomel]) 5 mcg NGTUBE QAM [facility] Morphine Sulfate (Morphine) 2 mg IV Q4H PRN PRN Reason: Pain, Moderate (4-6) Last Admin: 03/10/18 03:01 Dose: 2 mg Ondansetron HCl (Zofran) 4 mg IV Q8H PRN PRN Reason: Nausea And Vomiting Oxcarbazepine (Trileptal) 900 mg PO BID [facility] Last Admin: 03/10/18 10:52 Dose: 900 mg Simple Syrup (Simple Syrup) 15 ml FEEDTUBE PRN PRN PRN Reason: Hypoglycemia Simple Syrup (Simple Syrup) 30 ml FEEDTUBE PRN PRN PRN Reason: Hypoglycemia Sodium Bicarbonate (Sodium Bicarbonate) 325 mg FEEDTUBE PRN PRN PRN Reason: For Clogged Feeding Tube Sodium Chloride (Sodium Chloride Flush Syringe 10 Ml) 10 ml IV BID [facility] Last Admin: 03/10/18 10:55 Dose: 10 ml Sodium Chloride (Sodium Chloride Flush Syringe 10 Ml) 10 ml IV PRN PRN PRN Reason: LINE FLUSH Valproic Acid (Depakene Liq) 1,000 mg FEEDTUBE BID PRISCA Last Admin: 03/10/18 10:48 Dose: 1,000 mg Review of Systems ROS unobtainable: due to mental status Exam - Constitutional Vitals: Temp Pulse Resp BP Pulse Ox 98.3 F 86 22 138/87 94 03/10/18 14:27 03/10/18 16:20 03/10/18 14:27 03/10/18 16:20 03/10/18 14:27 General appearance: Present: no acute distress - EENT Eyes: Present: PERRL, EOM intact ENT: hearing intact - Respiratory Respiratory effort: normal Respiratory: bilateral: CTA (anteriorly) - Cardiovascular Rhythm: regular Heart Sounds: Present: S1 & S2 - Extremities Extremities: No edema - Abdominal General gastrointestinal: Present: soft, non-tender, other (Obese, with G-tube site with surrounding hyperpigmentation, but no drainage or fluctuance) Results - Labs CBC & Chem 7: 03/10/18 07:59 03/10/18 07:59 Labs: Abnormal lab results 03/09/18 03/09/18 03/09/18 Range/Units 18:54 18:54 20:25 Hgb 15.4 H (11.8-15.2) gm/dl Hct (35.5-45.6) % MCV 97 H (84-94) fl MCH 33 H (28-32) pg RDW 15.6 H (13.2-15.2) % [place] % (Auto) 10.9 H (0.0-7.3) % Eos % (Auto) 6.5 H (0.0-4.3) % Lymph # (1.2-5.4) K/mm3 [place] # 0.9 H (0.0-0.8) K/mm3 Eos # 0.5 H (0.0-0.4) K/mm3 Seg Neutrophils % (40.0-70.0) % POC ABG pCO2 48.0 H (35-45) POC ABG pO2 64 L (80-105) Sodium 134 L (137-145) mmol/L Chloride 93.5 L (98-107) mmol/L Creatinine (0.8-1.5) mg/dL Glucose (75-100) mg/dL POC Glucose (70-105) 03/09/18 03/10/18 03/10/18 Range/Units 23:19 07:59 07:59 Hgb 16.1 H (11.8-15.2) gm/dl Hct 48.3 H (35.5-45.6) % MCV 98 H (84-94) fl MCH 33 H (28-32) pg RDW 15.7 H (13.2-15.2) % [place] % (Auto) (0.0-7.3) % Eos % (Auto) (0.0-4.3) % Lymph # 0.9 L (1.2-5.4) K/mm3 [place] # (0.0-0.8) K/mm3 Eos # (0.0-0.4) K/mm3 Seg Neutrophils % 78.8 H (40.0-70.0) % POC ABG pCO2 (35-45) POC ABG pO2 (80-105) Sodium (137-145) mmol/L Chloride 96.0 L (98-107) mmol/L Creatinine 0.7 L (0.8-1.5) mg/dL Glucose 132 H (75-100) mg/dL POC Glucose 128 H (70-105) 03/10/18 03/10/18 03/10/18 Range/Units 08:08 11:35 15:55 Hgb (11.8-15.2) gm/dl Hct (35.5-45.6) % MCV (84-94) fl MCH (28-32) pg RDW (13.2-15.2) % [place] % (Auto) (0.0-7.3) % Eos % (Auto) (0.0-4.3) % Lymph # (1.2-5.4) K/mm3 [place] # (0.0-0.8) K/mm3 Eos # (0.0-0.4) K/mm3 Seg Neutrophils % (40.0-70.0) % POC ABG pCO2 (35-45) POC ABG pO2 (80-105) Sodium (137-145) mmol/L Chloride (98-107) mmol/L Creatinine (0.8-1.5) mg/dL Glucose (75-100) mg/dL POC Glucose 134 H 165 H 165 H (70-105) Assessment and Plan 1. Dislodged G-tube - pt needs G-tube for nutritional support. Discussed options, including comfort measures only, with his sister, Lavonne Tomlinson. - will proceed with G-tube placement tomorrow.
[2018-03-11] MEDS: HumaLOG SUB-Q SCH ×8 (00:07→22:08)
[2018-03-11] MEDS: D5NS 1,000 ML IV SCH ×2 (00:07→10:05)
[2018-03-11] MEDS: APRESOLINE PO SCH ×3 (06:39→22:08)
[2018-03-11] MEDS: DUONEB *Not for PRN Use IH SCH ×4 (07:31→20:19)
[2018-03-11] MEDS: LIORESAL PO SCH ×3 (07:59→22:04)
[2018-03-11] MEDS: SYNTHROID PO SCH (08:08)
[2018-03-11] MEDS: KEPPRA PO SCH ×2 (10:00→22:04)
[2018-03-11] MEDS: DepaKENE Liq FEEDTUBE SCH ×2 (10:00→22:17)
[2018-03-11] MEDS: PEPCID IV SCH ×2 (10:00→22:09)
[2018-03-11] MEDS: NORVASC FEEDTUBE SCH (10:00)
[2018-03-11] MEDS: TRILEPTAL PO SCH ×2 (10:00→22:09)
[2018-03-11] MEDS: HEPARIN SUB-Q SCH ×2 (10:00→22:13)
[2018-03-11] MEDS: LEVAQUIN 750MG/150ML 750 MG/150 ML BAG IV SCH (10:05)
[2018-03-11] MEDS: SODIUM CHLORIDE FLUSH SYRINGE 10 ML IV SCH ×2 (10:06→22:29)
--- NOTE | 2018-03-11 14:49 | Progress Note ---
Assessment and Plan / Acute hypoxemic respiratory failure Probably pneumonia versus CHF We'll follow echocardiogram Cont IV antibiotics, Duonebs / Dislodged gastrostomy tube GI consulted, Plan to place PEG tube today cont D5Ns for now / Hypothyroidism Continue Synthroid / Muscle spasm cont baclofen /Hypertension Continue amlodipine and hydralazine /h/o CVA, cont aspirin and statin / Seizure disorder Continue Keppra and valproic acid / Insulin dependent diabetes mellitus Continue insulin and coverage hemoglobin A1c 5.5 / DVT prophylaxis Heparin 5000 every 12 Brief History: 62-year-old male with history of cerebrovascular accident and aphasia sent in for increasing shortness of breath and dislodged and G-tube. Hospitalist Physical exam: GENERAL: elderly male lying on bed appeared to be in no discomfort. HEENT: Normocephalic. Atraumatic. No conjunctival congestion or icterus. Patient has dry mucous membranes. NECK: Supple. Trachea midline. CHEST/LUNGS: breathing nonlabored. No wheezes crackles or rhonchi. HEART/CARDIOVASCULAR: Regular in rate and rhythm. S1 and S2 positive. ABDOMEN: Abdomen is soft, nontender. Patient has normal bowel sounds. SKIN: There is no rash. Warm and dry. NEURO: does not Follow command. + right hand tremor MUSCULOSKELETAL: No joint effusion or tenderness. EXTRIMITY: No edema, no cyanosis or clubbing. PSYCH: unable to assess Subjective Date of service: 03/11/18 Interval history: Patient seen and examined. Medical records and medication list reviewed. No acute event overnight noted by the RN. Patient waiting for PEG tube placement, on iv fluid Objective - Constitutional Vitals: Vital Signs - 12hr 03/11/18 03/11/18 03/11/18 06:31 07:00 07:44 Temperature 97.6 F 97.8 F Pulse Rate 76 73 Respiratory 18 19 Rate Blood Pressure 152/95 146/88 O2 Sat by Pulse 98 97 Oximetry 03/11/18 13:58 Temperature 97.6 F Pulse Rate 77 Respiratory 19 Rate Blood Pressure 146/71 O2 Sat by Pulse 94 Oximetry - Labs CBC & Chem 7: 03/10/18 07:59 03/10/18 07:59 Labs: Abnormal lab results 03/10/18 03/10/18 03/10/18 Range/Units 15:55 21:19 23:50 POC Glucose 165 H 137 H 146 H (70-105) 03/11/18 Range/Units 05:52 POC Glucose 106 H (70-105)
[2018-03-11] MEDS ORDERED: NACL 0.9% 1000 ML 1,000 ML ONE (16:30)
[2018-03-11] MEDS ORDERED: PROVENTIL IH NR (16:45)
--- NOTE | 2018-03-11 16:46 | Anesthesia Day of Surgery ---
Anesthesia Day of Surgery - Day of Surgery Patient Examined: Yes Patient H&P Reviewed: Yes Patient is NPO: Yes Beta Blockers: No
--- NOTE | 2018-03-11 16:49 | Anesthesia Consultation ---
Anesthesia Consult and Med Hx Date of service: 03/11/18 - Airway Anesthetic Teeth Evaluation: Good ROM Head & Neck: Adequate Mental/Hyoid Distance: Adequate Mallampati Class: Class IV Intubation Access Assessment: Possibly Difficult - Pulmonary Exam CTA: No (wheezing auscultated) - Cardiac Exam Cardiac Exam: No Murmur - Pre-Operative Health Status ASA Pre-Surgery Classification: ASA3 Proposed Anesthetic Plan: General - Pulmonary Hx Asthma: No COPD: No Hx Pneumonia: No - Cardiovascular System Hx Hypertension: Yes Hx Pacemaker: No Hx Internal Defibrillator: No - Central Nervous System Hx Seizures: Yes CVA: Yes Hx Psychiatric Problems: No - Gastrointestinal Hx Ulcer: Yes - Endocrine Hx End Stage Renal Disease: No Hx Hypothyroidism: Yes
[2018-03-11] MEDS ORDERED: PROVENTIL IH ONE (16:50)
[2018-03-11] MEDS ORDERED: NEO SYNEPHRINE/NS Syringe(OR USE) IV ONE (16:52)
[2018-03-11] MEDS ORDERED: ePHEDrine 50 MG/5 ML-0.9% NACL IV ONE (16:53)
[2018-03-11] MEDS ORDERED: DIPRIVAN 10 MG/ML IV ONE (17:04)
[2018-03-11] MEDS ORDERED: WATER FOR IRRIG STERILE IR ONE (17:04)
[2018-03-11] MEDS ORDERED: VERSED ONE (17:04)
[2018-03-11] MEDS ORDERED: ANCEF/STERILE WATER 2 GM/20 ML 2 GM/20 ML SYRINGE IV ONE (17:06)
--- NOTE | 2018-03-11 17:31 | Post Operative Note ---
Pre-op diagnosis: dysphagia Post-op diagnosis: same Findings: EGD: hiatal hernia - previous peg site x 2 noted - negative other - 20 F pull peg placed, bumper at 4 cm Procedure: EGD/PEG Anesthesia: MAC Surgeon: KINGA LOUIS Estimated blood loss: none Pathology: none Condition: stable Disposition: floor
--- NOTE | 2018-03-11 19:48 | Operative Report ---
INDICATION: 1. PEG tube replacement. 2. Nutritional support. 3. Dysphagia. MEDICATIONS: Propofol per SHOE CASER. COMPLICATIONS: None. DESCRIPTION OF PROCEDURE: The patient was brought to procedure suite. The patient had the procedure discussed with family at length. All risks, complications, and benefits discussed after which consent was gotten for the procedure performed. The patient was placed in left lateral decubitus position. Mouth block was placed in the patient's oral cavity. After adequate sedation medication as above, endoscope was introduced into the mouth and brought to the level of the second portion of duodenum. Retroflexion view performed. The patient's vital signs remained stable throughout the procedure. It should be noted that the patient was done in supine position. FINDINGS: There was noted to be a small hiatal hernia at GE junction. There were 2 previous PEG tube sites noted in the gastric body, which appeared intact. The remaining stomach and duodenum otherwise appeared to be normal. Retroflexion showed no other pathology other than noted above. After this inspection using standard technique and transillumination, area for adequate placement of PEG was found. A 20-Singaporean pull PEG was then placed with bumper noted to be at 4 cm. Post-procedure, the patient was satisfactory. The patient tolerated procedure well. No complications during the procedure. IMPRESSION: 1. Hiatal hernia. 2. Previous PEG tube site x2 noted in the gastric body. 3. Otherwise, normal EGD. 4. PEG tube placed without obvious complications. RECOMMENDATIONS: 1. Standard PEG tube orders, see chart. 2. Watch for signs of bleeding, infection. 3. Okay to use PEG tube after 6 hours. 4. We will follow up in a.m. JOB# [id number] [facility]
[2018-03-12] MEDS: HumaLOG SUB-Q SCH ×7 (00:12→17:19)
[2018-03-12] MEDS: MORPHINE IV PRN (01:01)
[2018-03-12] MEDS: APRESOLINE PO SCH ×2 (06:23→14:00)
[2018-03-12] MEDS: SYNTHROID PO SCH (06:23)
[2018-03-12 07:51] LABS: Hematocrit 44.4 % (35.5-45.6); Hemoglobin 14.8 gm/dl (11.8-15.2); Mean Corpuscular HGB Conc 33 % (32-34); Mean Corpuscular Hemoglobin 33 pg (28-32); Mean Corpuscular Volume 99 fl (84-94); Platelet Count 154 K/mm3 (140-440); Red Blood Count 4.47 M/mm3 (3.65-5.03); Red Cell Distribution Width 15.5 % (13.2-15.2)
[2018-03-12] MEDS: DUONEB *Not for PRN Use IH SCH ×2 (07:53→19:50)
[2018-03-12 08:05] LABS: BUN/Creatinine Ratio 13; Blood Urea Nitrogen 10 mg/dL (9-20); Calcium 9.2 mg/dL (8.4-10.2); Hemolysis Index 2
[2018-03-12 08:56] LABS: Basophils % (Manual) 0 % (0.0-1.8); Total Cells Counted 100
[2018-03-12 08:57] LABS: Platelet Estimate Consistent w Auto; RBC Morphology Normal
[2018-03-12] MEDS: PEPCID IV SCH (10:00)
[2018-03-12] MEDS: TRILEPTAL PO SCH (10:00)
[2018-03-12] MEDS: LEVAQUIN 750MG/150ML 750 MG/150 ML BAG IV SCH (10:00)
[2018-03-12] MEDS: SODIUM CHLORIDE FLUSH SYRINGE 10 ML IV SCH (10:00)
[2018-03-12] MEDS: DepaKENE Liq FEEDTUBE SCH (10:00)
[2018-03-12] MEDS: NORVASC FEEDTUBE SCH (10:00)
[2018-03-12] MEDS: KEPPRA PO SCH (10:00)
[2018-03-12] MEDS ORDERED: HALFPRIN EC PO SCH (10:00)
--- NOTE | 2018-03-12 10:26 | Gastroenterology Progress Note ---
Assessment and Plan 1.PEG placement -s/p EGD with PEG placement yesterday -PEG site this am w/o s/s of infection or bleeding -bumper off loaded to prevent skin breakdown -gauze dressing PRN -TFs per dietitian recommendations- consult pending -continue supportive care -no further recommendations per GI standpoint at this time -will sign off, please call if needed Subjective Date of service: 03/12/18 Principal diagnosis: PEG placement Interval history: Patient w/o acute distress. PEG site w/o redness, swelling, drainage, odor, or bleeding. No evidence of abd pain or N/V. Objective - Constitutional Vitals: Temp Pulse Resp BP Pulse Ox 99.3 F 73 19 128/74 98 03/11/18 23:24 03/12/18 07:54 03/12/18 07:54 03/12/18 06:23 03/12/18 07:54 General appearance: no acute distress - Respiratory Respiratory: bilateral: CTA (anterior) - Cardiovascular Rhythm: regular Heart Sounds: Present: S1 & S2 - Gastrointestinal General gastrointestinal: Present: soft, non-tender, non-distended, normal bowel sounds, other (+PEG) - Labs CBC & Chem 7: 03/12/18 07:14 03/12/18 07:14 Labs: Laboratory Results - last 24 hr 03/11/18 03/11/18 03/12/18 12:25 21:39 06:19 WBC RBC Hgb Hct MCV MCH MCHC RDW Plt Count [place] % (Auto) Add Manual Diff Total Counted Seg Neuts % (Manual) Band Neutrophils % Lymphocytes % (Manual) Reactive Lymphs % (Man) Monocytes % (Manual) Eosinophils % (Manual) Basophils % (Manual) Metamyelocytes % Myelocytes % Promyelocytes % Blast Cells % Nucleated RBC % Seg Neutrophils # Man Band Neutrophils # Lymphocytes # (Manual) Abs React Lymphs (Man) Monocytes # (Manual) Eosinophils # (Manual) Basophils # (Manual) Metamyelocytes # Myelocytes # Promyelocytes # Blast Cells # WBC Morphology Hypersegmented Neuts Hyposegmented Neuts Hypogranular Neuts Smudge Cells Toxic Granulation Toxic Vacuolation Dohle Bodies Pelger-Huet Anomaly Kaitlyn Rods Platelet Estimate Clumped Platelets Plt Clumps, EDTA Large Platelets Giant Platelets Platelet Satelliting Plt Morphology Comment RBC Morphology Dimorphic RBCs Polychromasia Hypochromasia Poikilocytosis Anisocytosis Microcytosis Macrocytosis Spherocytes Pappenheimer Bodies Sickle Cells Target Cells Tear Drop Cells Ovalocytes Helmet Cells Lo-Grant-[place] Bodies Abrams Rings [place] Cells Bite Cells Crenated Cell Elliptocytes Acanthocytes (Spur) Rouleaux Hemoglobin C Crystals Schistocytes Malaria parasites Dionisio Bodies Hem Pathologist Commnt Sodium Potassium Chloride Carbon Dioxide Anion Gap BUN Creatinine Estimated GFR BUN/Creatinine Ratio Glucose POC Glucose 80 88 90 Calcium 03/12/18 03/12/18 07:14 07:14 WBC 8.3 RBC 4.47 Hgb 14.8 Hct 44.4 MCV 99 H MCH 33 H MCHC 33 RDW 15.5 H Plt Count 154 [place] % (Auto) [employer] Add Manual Diff Complete Total Counted 100 Seg Neuts % (Manual) 61.0 Band Neutrophils % 0 Lymphocytes % (Manual) 19.0 Reactive Lymphs % (Man) 0 Monocytes % (Manual) 17.0 H Eosinophils % (Manual) 3.0 Basophils % (Manual) 0 Metamyelocytes % 0 Myelocytes % 0 Promyelocytes % 0 Blast Cells % 0 Nucleated RBC % Not Reportable Seg Neutrophils # Man 5.1 Band Neutrophils # 0.0 Lymphocytes # (Manual) 1.6 Abs React Lymphs (Man) 0.0 Monocytes # (Manual) 1.4 H Eosinophils # (Manual) 0.2 Basophils # (Manual) 0.0 Metamyelocytes # 0.0 Myelocytes # 0.0 Promyelocytes # 0.0 Blast Cells # 0.0 WBC Morphology Not Reportable Hypersegmented Neuts Not Reportable Hyposegmented Neuts Not Reportable Hypogranular Neuts Not Reportable Smudge Cells Not Reportable Toxic Granulation Not Reportable Toxic Vacuolation Not Reportable Dohle Bodies Not Reportable Pelger-Huet Anomaly Not Reportable Kaitlyn Rods Not Reportable Platelet Estimate Consistent w auto Clumped Platelets Not Reportable Plt Clumps, EDTA Not Reportable Large Platelets Not Reportable Giant Platelets Not Reportable Platelet Satelliting Not Reportable Plt Morphology Comment Not Reportable RBC Morphology Normal Dimorphic RBCs Not Reportable Polychromasia Not Reportable Hypochromasia Not Reportable Poikilocytosis Not Reportable Anisocytosis Not Reportable Microcytosis Not Reportable Macrocytosis Not Reportable Spherocytes Not Reportable Pappenheimer Bodies Not Reportable Sickle Cells Not Reportable Target Cells Not Reportable Tear Drop Cells Not Reportable Ovalocytes Not Reportable Helmet Cells Not Reportable Lo-Grant-[place] Bodies Not Reportable Abrams Rings Not Reportable [place] Cells Not Reportable Bite Cells Not Reportable Crenated Cell Not Reportable Elliptocytes Not Reportable Acanthocytes (Spur) Not Reportable Rouleaux Not Reportable Hemoglobin C Crystals Not Reportable Schistocytes Not Reportable Malaria parasites Not Reportable Dionisio Bodies Not Reportable Hem Pathologist Commnt No Sodium 138 Potassium 3.9 Chloride 98.7 Carbon Dioxide 29 Anion Gap 14 BUN 10 Creatinine 0.8 Estimated GFR > 60 BUN/Creatinine Ratio 13 Glucose 104 H POC Glucose Calcium 9.2
[2018-03-12] MEDS: HEPARIN SUB-Q SCH (12:05)
[2018-03-12] MEDS: LIORESAL PO SCH ×2 (12:09→14:00)
--- NOTE | 2018-03-12 16:42 | Discharge Summary ---
Providers - Providers Date of Admission: 03/09/18 22:16 Attending physician: FRANK TAVAREZ MD 03/09/18 18:13 Consult to Physician [CONS] Stat Comment: Consulting Provider: MANUEL BORREGO Physician Instructions: Reason For Exam: peg tube replacement 03/10/18 07:24 Consult to Dietitian/Nutrition [CONS] Routine Physician Instructions: Reason For Exam: post-peg intsructions Reason for Consult: Write/Manage Tube Feeding 03/10/18 07:54 Consult to Wound/ET Nurse [CONS] Routine Reason For Exam: wound eval Primary care physician: COATING MANAGER Hospitalization Condition: Serious Hospital course: 62-year-old male with history of cerebrovascular accident and aphasia sent in for increasing shortness of breath and dislodged and G-tube. Pneumonia was ruled out, chest x-ray was negative. ABG was normal. Patient went on to have PEG tube replaced. It was confirmed to be in good position, after which patient was discharged. Diagnoses / Dislodged gastrostomy tube / Acute hypoxemic respiratory failure was ruled out, abg normal po2 cxr neg for pna / Hypothyroidism / Muscle spasm /Hypertension /h/o CVA, cont aspirin and statin / Seizure disorder / Insulin dependent diabetes mellitus Disposition: [id number] Time spent for discharge: 33 minutes Core Measure Documentation - Palliative Care Palliative Care/ Comfort Measures: Not Applicable - Core Measures Any of the following diagnoses?: none Exam - Constitutional Vitals: Temp Pulse Resp BP Pulse Ox 99.3 F 73 19 128/74 98 03/11/18 23:24 03/12/18 07:54 03/12/18 07:54 03/12/18 06:23 03/12/18 07:54 General appearance: Present: no acute distress, well-nourished - EENT Eyes: Present: PERRL ENT: hearing intact, clear oral mucosa - Neck Neck: Present: supple, normal ROM - Respiratory Respiratory effort: normal Respiratory: bilateral: CTA - Cardiovascular Heart Sounds: Present: S1 & S2. Absent: rub, click - Extremities Extremities: pulses symmetrical, No edema Peripheral Pulses: within normal limits - Abdominal General gastrointestinal: Present: soft, non-tender, non-distended, normal bowel sounds Male genitourinary: Present: normal - Integumentary Integumentary: Present: clear, warm, dry - Musculoskeletal Musculoskeletal: gait normal, strength equal bilaterally - Psychiatric Psychiatric: appropriate mood/affect, intact judgment & insight - Neurologic Neurologic: CNII-XII intact, moves all extremities Plan Follow up with: PRIMARY CARE, [Primary Care Provider] - 3-5 Days
[2018-03-12 17:14] VITALS: BP 127/64
== END 2018-03-12 19:48 | disposition home health service (06) | DRG 394 ==
LOC: ED 13:18 → 4A 22:16 → 3A 23:04
PROVIDERS: ADMIT Internal Medicine; ATTEND Internal Medicine
PROC: 4A033R1 Measurement of Arterial Saturation, Peripheral, Percutaneous Approach (ICD-10-PCS; principal; 2018-03-09)
PROC: 0DH63UZ Insertion of Feeding Device into Stomach, Percutaneous Approach (ICD-10-PCS; 2018-03-11)
DX: K94.23 Gastrostomy malfunction (principal); J45.901 Unspecified asthma with (acute) exacerbation; E03.9 Hypothyroidism, unspecified; M62.838 Other muscle spasm; G40.909 Epilepsy, unspecified, not intractable, without status epilepticus; E11.9 Type 2 diabetes mellitus without complications; Y83.3 Surgical operation with formation of external stoma as the cause of abnormal reaction of the patient, or of later complication, without mention of misadventure at the time of the procedure; Y82.8 Other medical devices associated with adverse incidents; I50.9 Heart failure, unspecified; I11.0 Hypertensive heart disease with heart failure; R13.10 Dysphagia, unspecified; K44.9 Diaphragmatic hernia without obstruction or gangrene; Z79.4 Long term (current) use of insulin; I69.920 Aphasia following unspecified cerebrovascular disease
CPT/HCPCS: 36415; 71045; 74018; 80048; 80053; 82803; 82962; 83036; 83880; 85007; 85025; 93005; 93010; 93306; 94640; 94760; J0690; J1644; J1815; J1953; J1956; J2060; J2250; J2270; J2370; J2704; J2930; J7030; J7042

== ENCOUNTER 2019-01-19 07:28 | Inpatient (IN) | payer MEDICARE ==
[2019-01-19] MEDS ORDERED: ATROPINE IV ONE ×2 (07:35→07:45)
[2019-01-19] MEDS ORDERED: NACL 0.9% 1000 ML 1,000 ML IV ONE ×6 (07:43→17:00)
[2019-01-19] MEDS ORDERED: PROVENTIL IH ONE (07:46)
[2019-01-19] MEDS ORDERED: ATROVENT IH ONE (07:46)
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
[2019-01-19] MEDS ORDERED: ADRENALIN 8 MG in NACL 0.9% 250ML 242 ML IV ONE (08:05)
[2019-01-19 08:12] LABS: INR 0.86 (0.87-1.13)
[2019-01-19 08:13] LABS: Partial Thromboplastin Time 30.5 Sec. (24.2-36.6)
[2019-01-19 08:16] LABS: Hematocrit 30.7 % (35.5-45.6); Hemoglobin 10.1 gm/dl (11.8-15.2); Mean Corpuscular HGB Conc 33 % (32-34); Mean Corpuscular Volume 100 fl (84-94); Red Blood Count 3.07 M/mm3 (3.65-5.03); Red Cell Distribution Width 17.4 % (13.2-15.2)
[2019-01-19] MEDS ORDERED: ZOSYN/NS 3.375GM/50ML 3.375 GM/50 ML BAG IV ONE (08:21)
[2019-01-19 08:22] LABS: Platelet Count 223 K/mm3 (140-440)
[2019-01-19 08:31] LABS: BUN/Creatinine Ratio 24; Blood Urea Nitrogen 33 mg/dL (9-20); Calcium 9.4 mg/dL (8.4-10.2); Hemolysis Index 58
[2019-01-19] MEDS ORDERED: D50W (25GM) Syringe IV ONE ×2 (09:31→23:00)
[2019-01-19] MEDS ORDERED: HumuLIN R IV ONE (09:31)
[2019-01-19] MEDS ORDERED: INTROPIN DRIP 800 MG/D5W 250 ML 800 MG/250 ML BAG IV ONE (09:32)
[2019-01-19 09:36] LABS: Amorphous Crystals,Urine 2+; Bacteria,Urine 4+ /HPF (Negative); Bilirubin,Urine SM (Negative); Blood,Urine SM (Negative); Color,Urine Yellow (Yellow); Urobilinogen,Urine < 2.0 mg/dL (<2.0)
[2019-01-19 09:41] LABS: WBC,Urine > 182.0 /HPF (0.0-6.0)
[2019-01-19] MEDS ORDERED: CALCIUM CHLORIDE 1,000 MG in NACL 0.9% 100 ML IV ONE (10:00)
--- NOTE | 2019-01-19 10:12 | XRay Report ---
PROCEDURE: XR CHEST 1V AP TECHNIQUE: Single frontal views of the chest HISTORY: Altered Mental Status COMPARISONS: 04/08/2018 FINDINGS: The cardiomediastinal silhouette is normal in appearance. Low lung volumes with streaky perihilar opacities. No pleural effusion or pneumothorax. No acute bony or soft tissue abnormality. IMPRESSION: Low lung volumes with streaky perihilar opacities that may reflect atelectasis versus mild edema. This document is electronically signed by Bianca Blank MD., January 19 2019 10:10:03 AM ET
[2019-01-19 10:23] LABS: Ictotest,Urine Negative (Negative)
[2019-01-19 10:33] LABS: Basophils % (Manual) 0 % (0.0-1.8); Eosinophils % (Manual) 0 % (0.0-4.3); Giant Platelets Few; Platelet Estimate Consistent w Auto; Target Cells 1+; Total Cells Counted 100
[2019-01-19] MEDS ORDERED: KIONEX PO ONE (11:26)
[2019-01-19] MEDS ORDERED: KIONEX ONE (11:33)
[2019-01-19] MEDS: SYNTHROID IV SCH (12:32)
[2019-01-19] MEDS ORDERED: NACL 0.9% 1000 ML 1,000 ML ONE (12:34)
[2019-01-19] MEDS ORDERED: ZOFRAN ONE (13:03)
[2019-01-19] MEDS ORDERED: ZOFRAN IV ONE (13:17)
--- NOTE | 2019-01-19 13:23 | Consultation ---
History of Present Illness Consult date: 01/19/19 Requesting physician: ANGIE MALONE Consult reason: bradycardia History of present illness: The history was obtained from the patient's since the patient is nonverbal and unable to provide a history. 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 He also has a history of CVA with left hemiparesis. His claims that she noted that he was cold and less responsive this morning as well as wheezing. As such, she activated the EMS and he was brought to the emergency department. Upon presentation, he was hypotensive and severely bradycardic with heart rate in the 30s. Initial labs showed evidence of hyperkalemia, severe hyponatremia and hypothyroidism. He was not on any AV blocking medications at home. Past History Past Medical History: diabetes, hypertension, hyperlipidemia, hypothyroidism (with Myxedema com in 2014), stroke Past Surgical History: Other (tracheostomy) Social history: . denies: smoking, alcohol abuse Family history: no significant family history Medications and Allergies Allergies Allergy/AdvReac Type Severity Reaction Status Date / Time No Known Allergies Allergy Verified 01/19/19 08:23 Home Medications Medication Instructions Recorded Confirmed Last Taken Type Baclofen [Lioresal] 5 mg PO TID 10/18/17 03/09/18 Unknown History Levothyroxine (Nf) [Synthroid (Nf)] 200 mcg NGTUBE QAM 10/18/17 03/09/18 Unknown History Liothyronine Sodium [Cytomel] 5 mcg NGTUBE QAM 10/18/17 03/09/18 10/30/17 History OXcarbazepine [Trileptal] 900 mg NGTUBE BID 10/18/17 03/09/18 Unknown History Valproic Acid (As Sodium Salt) 20 ml NGTUBE Q12H 10/18/17 03/09/18 Unknown History [Depakene] amLODIPine [Norvasc] 10 mg NGTUBE DAILY 10/18/17 03/09/18 Unknown History levETIRAcetam [Keppra TAB] 1,000 mg NGTUBE BID 10/18/17 03/09/18 Unknown History Insulin Aspart [NovoLOG Flexpen] See Protocol SQ Q6H 30 Days 10/26/17 03/09/18 Unknown Rx insuln.pen Insulin NPH/Regular [NovoLIN 70/30] 18 unit SQ BIDDIAB 30 Days ml 10/26/17 03/09/18 Unknown Rx hydrALAZINE [Apresoline TAB] 25 mg PO Q8HR #90 tablet 10/26/17 03/09/18 Unknown Rx Polyethylene Glycol 3350 [Miralax 17 gm PO BID #30 packet 11/10/17 03/09/18 Unknown Rx 3350] Sennosides/Docusate [Senokot S] 1 tab PO Q12HR #30 tablet 11/10/17 03/09/18 Unknown Rx cloNIDine-TTS PATCH [Catapres-Tts 0.3 mg TD QWEEK patch 03/12/18 Unknown Rx 0.3mg Patch] Active Meds: Active Medications Epinephrine 8 mg/ Sodium (Chloride) 250 mls @ 3.75 mls/hr IV TITR ONE; Protocol Stop: 01/22/19 02:44 Last Titration: 01/19/19 10:09 Dose: 0 mcg/min, 0 mls/hr Documented by: Dopamine HCl/Dextrose (Intropin Drip 800 Mg/D5w 250 Ml) 800 mg in 250 mls @ 10.206 mls/hr IV TITR ONE; Protocol Stop: 01/20/19 10:01 Last Titration: 01/19/19 11:45 Dose: 12 mcg/kg/min, 24.494 mls/hr Documented by: Sodium Chloride (Nacl 0.9% 1000 Ml) 1,000 mls @ 125 mls/hr IV ONCE ONE Stop: 01/19/19 19:00 Last Admin: 01/19/19 12:33 Dose: 125 mls/hr Documented by: Levothyroxine Sodium (Synthroid) 100 mcg IV DAILY@0600 PRISCA Last Admin: 01/19/19 12:32 Dose: 100 mcg Documented by: Review of Systems ROS unobtainable: due to mental status Physical Examination Vital Signs Vital Signs - 8 hr Last Vital Signs Temp Pulse 60 01/19/19 12:45 Resp 15 01/19/19 12:45 BP 101/32 01/19/19 12:45 Pulse Ox 88 01/19/19 12:45 General appearance: no acute distress HEENT: Positive: Normocephaly Neck: Positive: neck supple, trachea midline Cardiac: Positive: Reg Rate and Rhythm, S1/S2 Lungs: Positive: clear to auscultation Neuro: Positive: Other (Awake; nonverbal) Abdomen: Positive: Soft, Active Bowel Sounds, Distended. Negative: Tender Skin: Positive: Clear. Negative: Rash Musculoskeletal: No Fluid Collection Extremities: Present: edema (trace nonpitting bilateral edema) Results 01/19/19 07:48 01/19/19 07:46 Coagulation 01/19/19 Range/Units 07:46 PT 12.2 (12.2-14.9) Sec. INR 0.86 L (0.87-1.13) APTT 30.5 (24.2-36.6) Sec. CBC 01/19/19 Range/Units 07:48 WBC 4.2 L (4.5-11.0) K/mm3 RBC 3.07 L (3.65-5.03) M/mm3 Hgb 10.1 L (11.8-15.2) gm/dl Hct 30.7 L (35.5-45.6) % Plt Count 223 (140-440) K/mm3 Lymph # [employer] [place] # [employer] Eos # [employer] Baso # [employer] Comprehensive Metabolic Panel 01/19/19 Range/Units 07:46 Sodium 114 L* (137-145) mmol/L Potassium 6.5 H* (3.6-5.0) mmol/L Chloride 77.4 L (98-107) mmol/L Carbon Dioxide 22 (22-30) mmol/L BUN 33 H (9-20) mg/dL Creatinine 1.4 (0.8-1.5) mg/dL Glucose 128 H (75-100) mg/dL Calcium 9.4 (8.4-10.2) mg/dL - Imaging and Cardiology EKG: image reviewed EKG interpretations - Telemetry EKG Rhythm: Junctional - EKG Supraventricular dysrhythmia: junctional rhythm AV and intraventricular conduction: intraventricular conducti Assessment and Plan He has received acute therapy for hyperkalemia in the ER. Initiate dopamine drip, Kayexalate, IV normal saline and levothyroxine. Obtain serum osmolality and urine sodium. Schedule echocardiogram. F/u BMP. - Patient Problems (1) Symptomatic bradycardia Current Visit: Yes Status: Acute (2) Hypotension Current Visit: Yes Status: Acute (3) Hyperkalemia Current Visit: Yes Status: Acute (4) Hyponatremia Current Visit: Yes Status: Acute (5) Hypothyroidism Current Visit: Yes Status: Chronic Qualifiers: (6) Sepsis Current Visit: Yes Status: Acute (7) Dehydration Current Visit: Yes Status: Acute (8) Altered mental status Current Visit: Yes Status: Acute (9) Diabetes mellitus Current Visit: Yes Status: Chronic
--- NOTE | 2019-01-19 14:05 | Consultation ---
History of Present Illness - Reason for Consult Consult date: 01/19/19 Sepsis with bradycardia Requesting physician: ANGIE MALONE - History of Present Illness 63 y/o male brought from home secondary to change in mental state. Per report, not verbal at baseline. In the EMS, patient had HR in the 20's. Given atropine at lest once. Brought to the ED and was found to be severely hyponatremic as well as hyperkalemic, hypothermic and hypotensive. No family presently at bedside for any further history. Past History Past Medical History: diabetes, hypertension, hyperlipidemia, hypothyroidism (with Myxedema com in 2014), stroke Past Surgical History: Other (tracheostomy) Social history: . denies: smoking, alcohol abuse Family history: no significant family history Medications and Allergies Allergies Allergy/AdvReac Type Severity Reaction Status Date / Time No Known Allergies Allergy Verified 01/19/19 08:23 Home Medications Medication Instructions Recorded Confirmed Last Taken Type Baclofen [Lioresal] 5 mg PO TID 10/18/17 03/09/18 Unknown History Levothyroxine (Nf) [Synthroid (Nf)] 200 mcg NGTUBE QAM 10/18/17 03/09/18 Unknown History Liothyronine Sodium [Cytomel] 5 mcg NGTUBE QAM 10/18/17 03/09/18 10/30/17 History OXcarbazepine [Trileptal] 900 mg NGTUBE BID 10/18/17 03/09/18 Unknown History Valproic Acid (As Sodium Salt) 20 ml NGTUBE Q12H 10/18/17 03/09/18 Unknown History [Depakene] amLODIPine [Norvasc] 10 mg NGTUBE DAILY 10/18/17 03/09/18 Unknown History levETIRAcetam [Keppra TAB] 1,000 mg NGTUBE BID 10/18/17 03/09/18 Unknown History Insulin Aspart [NovoLOG Flexpen] See Protocol SQ Q6H 30 Days 10/26/17 03/09/18 Unknown Rx insuln.pen Insulin NPH/Regular [NovoLIN 70/30] 18 unit SQ BIDDIAB 30 Days ml 10/26/17 03/09/18 Unknown Rx hydrALAZINE [Apresoline TAB] 25 mg PO Q8HR #90 tablet 10/26/17 03/09/18 Unknown Rx Polyethylene Glycol 3350 [Miralax 17 gm PO BID #30 packet 11/10/17 03/09/18 Unknown Rx 3350] Sennosides/Docusate [Senokot S] 1 tab PO Q12HR #30 tablet 11/10/17 03/09/18 Unknown Rx cloNIDine-TTS PATCH [Catapres-Tts 0.3 mg TD QWEEK patch 03/12/18 Unknown Rx 0.3mg Patch] Active Meds: Active Medications Hydrocortisone Sodium Succinate (Solu-Cortef) 100 mg IV ONCE ONE Stop: 01/19/19 13:59 Hydrocortisone Sodium Succinate (Solu-Cortef) 100 mg IV Q8HR PRISCA Epinephrine 8 mg/ Sodium (Chloride) 250 mls @ 3.75 mls/hr IV TITR ONE; Protocol Stop: 01/22/19 02:44 Last Titration: 01/19/19 10:09 Dose: 0 mcg/min, 0 mls/hr Documented by: Dopamine HCl/Dextrose (Intropin Drip 800 Mg/D5w 250 Ml) 800 mg in 250 mls @ 10.206 mls/hr IV TITR ONE; Protocol Stop: 01/20/19 10:01 Last Titration: 01/19/19 11:45 Dose: 12 mcg/kg/min, 24.494 mls/hr Documented by: Sodium Chloride (Nacl 0.9% 1000 Ml) 1,000 mls @ 125 mls/hr IV ONCE ONE Stop: 01/19/19 19:00 Last Admin: 01/19/19 12:33 Dose: 125 mls/hr Documented by: Sodium Chloride (Nacl 0.9% 1000 Ml) 1,000 mls @ 999 mls/hr IV BOLUS ONE Stop: 01/19/19 14:56 Sodium Chloride (Nacl 0.9% 1000 Ml) 1,000 mls @ 999 mls/hr IV BOLUS ONE Stop: 01/19/19 14:57 Sodium Chloride (Nacl 0.9% 1000 Ml) 1,000 mls @ 999 mls/hr IV BOLUS ONE Stop: 01/19/19 14:57 Sodium Chloride (Nacl 0.9% 1000 Ml) 1,000 mls @ 999 mls/hr IV BOLUS ONE Stop: 01/19/19 14:57 Levothyroxine Sodium (Synthroid) 100 mcg IV DAILY@0600 PRISCA Last Admin: 01/19/19 12:32 Dose: 100 mcg Documented by: Review of Systems ROS unobtainable: due to mental status Exam - Constitutional Vitals: Temp Pulse Resp BP Pulse Ox 60 15 101/32 88 01/19/19 12:45 01/19/19 12:45 01/19/19 12:45 01/19/19 12:45 General appearance: Present: obese, other (not responsive) - EENT Eyes: Present: PERRL - Neck Neck: Present: supple - Respiratory Respiratory: bilateral: diminished - Cardiovascular Rhythm: regular (but currently on Dopamine 12) Results - Labs CBC & Chem 7: 01/19/19 07:48 01/19/19 07:46 Labs: Abnormal lab results 01/19/19 01/19/19 01/19/19 Range/Units 07:46 07:46 07:46 WBC (4.5-11.0) K/mm3 RBC (3.65-5.03) M/mm3 Hgb (11.8-15.2) gm/dl Hct (35.5-45.6) % MCV (84-94) fl MCH (28-32) pg RDW (13.2-15.2) % Seg Neuts % (Manual) (40.0-70.0) % Lymphocytes % (Manual) (13.4-35.0) % Monocytes % (Manual) (0.0-7.3) % Nucleated RBC % (0.0-0.9) % Lymphocytes # (Manual) (1.2-5.4) K/mm3 INR 0.86 L (0.87-1.13) POC ABG pH (7.35-7.45) POC ABG pCO2 (35-45) Sodium 114 L* (137-145) mmol/L Potassium 6.5 H* (3.6-5.0) mmol/L Chloride 77.4 L (98-107) mmol/L BUN 33 H (9-20) mg/dL Glucose 128 H (75-100) mg/dL Lactic Acid 2.50 H* (0.7-2.0) mmol/L Total Creatine Kinase < 7 L (55-170) units/L Troponin T (0.00-0.029) ng/mL TSH (0.270-4.200) mlU/mL Urine WBC (Auto) (0.0-6.0) /HPF 01/19/19 01/19/19 01/19/19 Range/Units 07:46 07:48 08:30 WBC 4.2 L (4.5-11.0) K/mm3 RBC 3.07 L (3.65-5.03) M/mm3 Hgb 10.1 L (11.8-15.2) gm/dl Hct 30.7 L (35.5-45.6) % MCV 100 H (84-94) fl MCH 33 H (28-32) pg RDW 17.4 H (13.2-15.2) % Seg Neuts % (Manual) 72.0 H (40.0-70.0) % Lymphocytes % (Manual) 11.0 L (13.4-35.0) % Monocytes % (Manual) 13.0 H (0.0-7.3) % Nucleated RBC % 1.0 H (0.0-0.9) % Lymphocytes # (Manual) 0.5 L (1.2-5.4) K/mm3 INR (0.87-1.13) POC ABG pH (7.35-7.45) POC ABG pCO2 (35-45) Sodium (137-145) mmol/L Potassium (3.6-5.0) mmol/L Chloride (98-107) mmol/L BUN (9-20) mg/dL Glucose (75-100) mg/dL Lactic Acid (0.7-2.0) mmol/L Total Creatine Kinase (55-170) units/L Troponin T (0.00-0.029) ng/mL TSH 8.530 H (0.270-4.200) mlU/mL Urine WBC (Auto) > 182.0 H (0.0-6.0) /HPF 01/19/19 01/19/19 01/19/19 Range/Units 10:24 10:24 10:24 WBC (4.5-11.0) K/mm3 RBC (3.65-5.03) M/mm3 Hgb (11.8-15.2) gm/dl Hct (35.5-45.6) % MCV (84-94) fl MCH (28-32) pg RDW (13.2-15.2) % Seg Neuts % (Manual) (40.0-70.0) % Lymphocytes % (Manual) (13.4-35.0) % Monocytes % (Manual) (0.0-7.3) % Nucleated RBC % (0.0-0.9) % Lymphocytes # (Manual) (1.2-5.4) K/mm3 INR (0.87-1.13) POC ABG pH 7.305 L (7.35-7.45) POC ABG pCO2 46.8 H (35-45) Sodium (137-145) mmol/L Potassium (3.6-5.0) mmol/L Chloride (98-107) mmol/L BUN (9-20) mg/dL Glucose (75-100) mg/dL Lactic Acid 3.20 H* (0.7-2.0) mmol/L Total Creatine Kinase (55-170) units/L Troponin T 0.031 H D (0.00-0.029) ng/mL TSH (0.270-4.200) mlU/mL Urine WBC (Auto) (0.0-6.0) /HPF - Imaging and Cardiology Chest x-ray: image reviewed (questionable pulmonary edema) Assessment and Plan 63 y/o male admitted with severe electrolyte imbalance, hypotension, hypothermia and bradycardia of unknown etiology. 1. Elevated TSH. Will start stress dose steroids and IV synthroid 2. Cards has seen, no mention of transvenous pacer as of yet. HR steady on dopamine for now. Will continue 3. Severe electrolyte imbalance. Given current picture I suspect volume depletion. Ordered 4 more liter boluses 4. Will need serial chemistries as to not over correct sodium too fast 5. Continue Pepe Hugger for warmth 6. Added empiric Rocephin given dirty urine, although this is likely chronic from klein. If not changed needs to be changed. Hold on Gram positive coverage 7. Hold in mind altering medications. May need LP if no improvement with above measures 8. ABG was stable however will intubate if need be given current clinical state Overall prognosis is guarded to poor. No family at bedside to discuss this with. CCT 31 minutes.
[2019-01-19 14:25] LABS: Chol/HDL Ratio 2.45 %
[2019-01-19 16:13] LABS: BUN/Creatinine Ratio 24; Blood Urea Nitrogen 31 mg/dL (9-20); Calcium 9.3 mg/dL (8.4-10.2); Hemolysis Index 166
--- NOTE | 2019-01-19 16:45 | History and Physical Report ---
History of Present Illness Date of examination: 01/19/19 Date of admission: 01/19/19 11:26 Chief complaint: Altered mental status and low heart rate History of present illness: 63 y/o male with history of CVA with residual right sided weakness who was brought from home to the ED due to change in mental state. Per report, not verbal at baseline. Per EMS, patient had HR in the 20's and was given atropine. Brought to the ED and was found to be severely hyponatremic as well as hyperkalemic, hypothermic and hypotensive. No family presently at bedside for any further history. Subsequently, patient started bleeding from multiple orifices Past History Past Medical History: diabetes, hypertension, hyperlipidemia, hypothyroidism (with Myxedema com in 2015), stroke Past Surgical History: Other (tracheostomy) Social history: . denies: smoking, alcohol abuse Family history: other (unable to obtain because patient is nonverbal) Medications and Allergies Allergies Allergy/AdvReac Type Severity Reaction Status Date / Time No Known Allergies Allergy Verified 01/19/19 08:23 Home Medications Medication Instructions Recorded Confirmed Last Taken Type Baclofen [Lioresal] 5 mg PO TID 10/18/17 03/09/18 Unknown History Levothyroxine (Nf) [Synthroid (Nf)] 200 mcg NGTUBE QAM 10/18/17 03/09/18 Unknown History Liothyronine Sodium [Cytomel] 5 mcg NGTUBE QAM 10/18/17 03/09/18 10/30/17 History OXcarbazepine [Trileptal] 900 mg NGTUBE BID 10/18/17 03/09/18 Unknown History Valproic Acid (As Sodium Salt) 20 ml NGTUBE Q12H 10/18/17 03/09/18 Unknown His tory [Depakene] amLODIPine [Norvasc] 10 mg NGTUBE DAILY 10/18/17 03/09/18 Unknown History levETIRAcetam [Keppra TAB] 1,000 mg NGTUBE BID 10/18/17 03/09/18 Unknown History Insulin Aspart [NovoLOG Flexpen] See Protocol SQ Q6H 30 Days 10/26/17 03/09/18 Unknown Rx insuln.pen Insulin NPH/Regular [NovoLIN 70/30] 18 unit SQ BIDDIAB 30 Days ml 10/26/17 03/09/18 Unknown Rx hydrALAZINE [Apresoline TAB] 25 mg PO Q8HR #90 tablet 10/26/17 03/09/18 Unknown Rx Polyethylene Glycol 3350 [Miralax 17 gm PO BID #30 packet 11/10/17 03/09/18 Unknown Rx 3350] Sennosides/Docusate [Senokot S] 1 tab PO Q12HR #30 tablet 11/10/17 03/09/18 Unknown Rx cloNIDine-TTS PATCH [Catapres-Tts 0.3 mg TD QWEEK patch 03/12/18 Unknown Rx 0.3mg Patch] Active Meds: Active Medications Dextrose (D50w (25gm) Syringe) 50 ml IV PRN PRN PRN Reason: Hypoglycemia Hydrocortisone Sodium Succinate (Solu-Cortef) 100 mg IV Q8H PRISCA Epinephrine 8 mg/ Sodium (Chloride) 250 mls @ 3.75 mls/hr IV TITR ONE; Protocol Stop: 01/22/19 02:44 Last Titration: 01/19/19 10:09 Dose: 0 mcg/min, 0 mls/hr Documented by: Dopamine HCl/Dextrose (Intropin Drip 800 Mg/D5w 250 Ml) 800 mg in 250 mls @ 10.206 mls/hr IV TITR ONE; Protocol Stop: 01/20/19 10:01 Last Titration: 01/19/19 11:45 Dose: 12 mcg/kg/min, 24.494 mls/hr Documented by: Sodium Chloride (Nacl 0.9% 1000 Ml) 1,000 mls @ 125 mls/hr IV ONCE ONE Stop: 01/19/19 19:00 Last Admin: 01/19/19 12:33 Dose: 125 mls/hr Documented by: Sodium Chloride (Nacl 0.9% 1000 Ml) 1,000 mls @ 999 mls/hr IV BOLUS ONE Stop: 01/19/19 18:00 Ceftriaxone Sodium (Rocephin/Ns 1 Gm/50 Ml) 1 gm in 50 mls @ 100 mls/hr IV Q24H PRISCA; Protocol Insulin Human Lispro (Humalog) 0 unit SUB-Q Q6HR PRISCA; Protocol Levothyroxine Sodium (Synthroid) 100 mcg IV DAILY@0600 PRISCA Last Admin: 01/19/19 12:32 Dose: 100 mcg Documented by: Review of Systems ROS unobtainable: due to mental status (patient is nonverbal) Exam - Constitutional Vitals: Temp Pulse Resp BP Pulse Ox 48 L 15 101/32 84 01/19/19 15:19 01/19/19 15:19 01/19/19 13:00 01/19/19 15:19 General appearance: Present: no acute distress - EENT Eyes: Present: PERRL, EOM intact ENT: clear oral mucosa - Neck Neck: Present: supple - Respiratory Respiratory effort: normal Respiratory: bilateral: diminished - Cardiovascular Rhythm: regular (with bradycardia) Heart Sounds: Present: S1 & S2 - Extremities Extremity abnormal: edema (in BLE AND BUE) - Abdominal General gastrointestinal: Present: distended, rigid, normal bowel sounds, other (PEG tube noted) - Integumentary Integumentary: Present: erythema (sacral decubital ulcers) - Neurologic Neurologic: other (patient is nonverbal) Results - Labs CBC & Chem 7: 01/19/19 07:48 01/19/19 14:39 Labs: Laboratory Last Values WBC 4.2 K/mm3 (4.5-11.0) L 01/19/19 07:48 RBC 3.07 M/mm3 (3.65-5.03) L 01/19/19 07:48 Hgb 10.1 gm/dl (11.8-15.2) L 01/19/19 07:48 Hct 30.7 % (35.5-45.6) L 01/19/19 07:48 MCV 100 fl (84-94) H 01/19/19 07:48 MCH 33 pg (28-32) H 01/19/19 07:48 MCHC 33 % (32-34) 01/19/19 07:48 RDW 17.4 % (13.2-15.2) H 01/19/19 07:48 Plt Count 223 K/mm3 (140-440) 01/19/19 07:48 Lymph % (Auto) Export Sales Manager 01/19/19 07:48 [place] % (Auto) Export Sales Manager 01/19/19 07:48 Eos % (Auto) Export Sales Manager 01/19/19 07:48 Baso % (Auto) Export Sales Manager 01/19/19 07:48 Lymph # Export Sales Manager 01/19/19 07:48 [place] # Export Sales Manager 01/19/19 07:48 Eos # Export Sales Manager 01/19/19 07:48 Baso # Export Sales Manager 01/19/19 07:48 Add Manual Diff Complete 01/19/19 07:48 Total Counted 100 01/19/19 07:48 Seg Neutrophils % Export Sales Manager 01/19/19 07:48 Seg Neuts % (Manual) 72.0 % (40.0-70.0) H 01/19/19 07:48 Band Neutrophils % 1.0 % 01/19/19 07:48 Lymphocytes % (Manual) 11.0 % (13.4-35.0) L 01/19/19 07:48 Reactive Lymphs % (Man) 2.0 % 01/19/19 07:48 Monocytes % (Manual) 13.0 % (0.0-7.3) H 01/19/19 07:48 Eosinophils % (Manual) 0 % (0.0-4.3) 01/19/19 07:48 Basophils % (Manual) 0 % (0.0-1.8) 01/19/19 07:48 Metamyelocytes % 1.0 % 01/19/19 07:48 Myelocytes % 0 % 01/19/19 07:48 Promyelocytes % 0 % 01/19/19 07:48 Blast Cells % 0 % 01/19/19 07:48 Nucleated RBC % 1.0 % (0.0-0.9) H 01/19/19 07:48 Seg Neutrophils # Export Sales Manager 01/19/19 07:48 Seg Neutrophils # Man 3.0 K/mm3 (1.8-7.7) 01/19/19 07:48 Band Neutrophils # 0.0 K/mm3 01/19/19 07:48 Lymphocytes # (Manual) 0.5 K/mm3 (1.2-5.4) L 01/19/19 07:48 Abs React Lymphs (Man) 0.1 K/mm3 01/19/19 07:48 Monocytes # (Manual) 0.5 K/mm3 (0.0-0.8) 01/19/19 07:48 Eosinophils # (Manual) 0.0 K/mm3 (0.0-0.4) 01/19/19 07:48 Basophils # (Manual) 0.0 K/mm3 (0.0-0.1) 01/19/19 07:48 Metamyelocytes # 0.0 K/mm3 01/19/19 07:48 Myelocytes # 0.0 K/mm3 01/19/19 07:48 Promyelocytes # 0.0 K/mm3 01/19/19 07:48 Blast Cells # 0.0 K/mm3 01/19/19 07:48 WBC Morphology Not Reportable 01/19/19 07:48 Hypersegmented Neuts Not Reportable 01/19/19 07:48 Hyposegmented Neuts Not Reportable 01/19/19 07:48 Hypogranular Neuts Not Reportable 01/19/19 07:48 Smudge Cells Not Reportable 01/19/19 07:48 Toxic Granulation Not Reportable 01/19/19 07:48 Toxic Vacuolation Not Reportable 01/19/19 07:48 Dohle Bodies Not Reportable 01/19/19 07:48 Pelger-Huet Anomaly Not Reportable 01/19/19 07:48 Kaitlyn Rods Not Reportable 01/19/19 07:48 Platelet Estimate Consistent w auto 01/19/19 07:48 Clumped Platelets Not Reportable 01/19/19 07:48 Plt Clumps, EDTA Not Reportable 01/19/19 07:48 Large Platelets Not Reportable 01/19/19 07:48 Giant Platelets Few 01/19/19 07:48 Platelet Satelliting Not Reportable 01/19/19 07:48 Plt Morphology Comment Not Reportable 01/19/19 07:48 RBC Morphology Not Reportable 01/19/19 07:48 Dimorphic RBCs Not Reportable 01/19/19 07:48 Polychromasia Not Reportable 01/19/19 07:48 Hypochromasia Not Reportable 01/19/19 07:48 Poikilocytosis Not Reportable 01/19/19 07:48 Anisocytosis Not Reportable 01/19/19 07:48 Microcytosis Not Reportable 01/19/19 07:48 Macrocytosis Not Reportable 01/19/19 07:48 Spherocytes Not Reportable 01/19/19 07:48 Pappenheimer Bodies Not Reportable 01/19/19 07:48 Sickle Cells Not Reportable 01/19/19 07:48 Target Cells 1+ 01/19/19 07:48 Tear Drop Cells Not Reportable 01/19/19 07:48 Ovalocytes Not Reportable 01/19/19 07:48 Helmet Cells Not Reportable 01/19/19 07:48 [employer] Bodies Not Reportable 01/19/19 07:48 [place] Rings Not Reportable 01/19/19 07:48 Gregory Cells Not Reportable 01/19/19 07:48 Bite Cells Not Reportable 01/19/19 07:48 Crenated Cell Not Reportable 01/19/19 07:48 Elliptocytes Not Reportable 01/19/19 07:48 Acanthocytes (Spur) Not Reportable 01/19/19 07:48 Rouleaux Not Reportable 01/19/19 07:48 Hemoglobin C Crystals Not Reportable 01/19/19 07:48 Schistocytes Not Reportable 01/19/19 07:48 Malaria parasites Not Reportable 01/19/19 07:48 Dionisio Bodies Not Reportable 01/19/19 07:48 Hem Pathologist Commnt No 01/19/19 07:48 PT 12.2 Sec. (12.2-14.9) 01/19/19 07:46 INR 0.86 (0.87-1.13) L 01/19/19 07:46 APTT 30.5 Sec. (24.2-36.6) 01/19/19 07:46 POC ABG pH 7.305 (7.35-7.45) L 01/19/19 10:24 POC ABG pCO2 46.8 (35-45) H 01/19/19 10:24 POC ABG pO2 83 (80-105) 01/19/19 10:24 POC ABG HCO3 23.3 (22-26 mml/L) 01/19/19 10:24 POC ABG Total CO2 25 (23-27mmol/L) 01/19/19 10:24 POC ABG O2 Sat 95 01/19/19 10:24 POC ABG Base Excess -3 ((-2) - (+3)mmol/L) 01/19/19 10:24 FiO2 32 % 01/19/19 10:24 Sodium 116 mmol/L (137-145) L* 01/19/19 14:39 Potassium 5.7 mmol/L (3.6-5.0) H 01/19/19 14:39 Chloride 82.9 mmol/L (98-107) L 01/19/19 14:39 Carbon Dioxide 17 mmol/L (22-30) L 01/19/19 14:39 Anion Gap 22 mmol/L 01/19/19 14:39 BUN 31 mg/dL (9-20) H 01/19/19 14:39 Creatinine 1.3 mg/dL (0.8-1.5) 01/19/19 14:39 Estimated GFR > 60 ml/min 01/19/19 14:39 BUN/Creatinine Ratio 24 % 01/19/19 14:39 Glucose 129 mg/dL (75-100) H 01/19/19 14:39 Osmolality 261 Mosm/kg 01/19/19 14:39 Lactic Acid 3.20 mmol/L (0.7-2.0) H* 01/19/19 10:24 Calcium 9.3 mg/dL (8.4-10.2) 01/19/19 14:39 Ammonia 34.0 umol/L (25-60) 01/19/19 07:48 Total Creatine Kinase < 7 units/L (55-170) L 01/19/19 07:46 Troponin T 0.031 ng/mL (0.00-0.029) H D 01/19/19 10:24 Triglycerides 78 mg/dL (2-149) 01/19/19 10:24 Cholesterol 130 mg/dL (50-199) 01/19/19 10:24 LDL Cholesterol Direct 71 mg/dL (50-130) 01/19/19 10:24 HDL Cholesterol 53 mg/dL (40-59) 01/19/19 10:24 Cholesterol/HDL Ratio 2.45 % 01/19/19 10:24 TSH 8.530 mlU/mL (0.270-4.200) H 01/19/19 07:46 Free T4 0.92 ng/dL (0.76-1.46) 01/19/19 14:39 Urine Color Yellow (Yellow) 01/19/19 08:30 Urine Turbidity Turbid (Clear) 01/19/19 08:30 Urine pH 5.0 (5.0-7.0) 01/19/19 08:30 Ur Specific Schneider 1.020 (1.003-1.030) 01/19/19 08:30 Urine Protein 100 mg/dl mg/dL (Negative) 01/19/19 08:30 Urine Glucose (UA) Neg mg/dL (Negative) 01/19/19 08:30 Urine Ketones Neg mg/dL (Negative) 01/19/19 08:30 Urine Blood Sm (Negative) 01/19/19 08:30 Urine Nitrite Neg (Negative) 01/19/19 08:30 Urine Bilirubin Sm (Negative) 01/19/19 08:30 Urine Ictotest Negative (Negative) 01/19/19 08:30 Urine Urobilinogen < 2.0 mg/dL (<2.0) 01/19/19 08:30 Ur Leukocyte Esterase Mod (Negative) 01/19/19 08:30 Urine WBC (Auto) > 182.0 /HPF (0.0-6.0) H 01/19/19 08:30 Urine RBC (Auto) 134.0 /HPF (0.0-6.0) 01/19/19 08:30 Urine Bacteria (Auto) 4+ /HPF (Negative) 01/19/19 08:30 Urine WBC Clumps 3+ /HPF 01/19/19 08:30 Ur Transition Epith Cell 6 /HPF 01/19/19 08:30 Amorphous Crystals 2+ 01/19/19 08:30 Assessment and Plan Assessment and plan: Severe sepsis with shock probably secondary to UTI -On IV antibiotic and dopamine drip -Blood and urine cultures pending Bleeding from multiple orifices/Possible DIC -will monitor H/H and coagulation profile -Condition guarded with poor prognosis Impending hypoxemic respiratory failure -Patient to be intubated for airway protection Symptomatic severe sinus bradycardia -Status post multiple doses of atropine -On epinephrine drip -Cardiology following Severe hyponatremia -Management by the nephrology, will monitor Severe Hyperkalemia -Management by the nephrology, will monitor Acute on chronic metabolic encephalopathy -Head CT scan pending DM2 -Stable Hypothyroidism -TSH level elevated but free T4 normal -On a stress dose IV steroid and IV Synthroid by pulmonology History of CVA with residual right sided weakness and non-verbal -Continue supportive care Chronic sacral decubitus ulcers -Continue wound care Chronic dysphagia status post PEG tube placement -Forensic Structural Engineer consulted I spent 45 minutes providing critical care to this seriously ill patient who requires frequent reassessments of his cardiovascular, respiratory, neurologic and metabolic profile Disposition: Condition is guarded and overall prognosis is very poor
[2019-01-19] MEDS ORDERED: AMIDATE IV ONE (17:20)
[2019-01-19] MEDS ORDERED: XYLOCAINE CARDIAC IV ONE (17:20)
[2019-01-19] MEDS ORDERED: VERSED IV ONE (17:20)
[2019-01-19] MEDS ORDERED: ZEMURON IV ONE (17:20)
--- NOTE | 2019-01-19 17:24 | Progress Note ---
Subjective Date of service: 01/19/19 (Airway Note) Principal diagnosis: hypoxic/hypercarbic respiratory failure Interval history: Attending called by nurse transmission maintenance supervisor at 15:38 for emergent airway assistance for an ICU patient in Room 256. Upon arrival, attending asked about interval history while designating appropriate roles from members of the ICU team and respiratory therapy. Unable to get full history other than the following: prior tracheostomy for unclear reason, serum potassium was 5.7, hypoxia since arrival from ED despite nasal cannula. Pt was disoriented and nonverbal. While patient was bag mask ventilated (i.e. BMV), attending saw copious amount of bloody secretions through [place]/nasopharynx and over 100cc of fluid in bedside cannister. Proceeded with induction with 5mg versed, 100mg lidocaine, and 50mg rocuronium. Attending continued BMV with ambu bag O2 sat > 97% s4 blade with styled 7.5 tube under glidescope used after oropharynx was suctioned. anterior cords with Gr3b view seen but unable to pass tube along with bougie. Attempts X 3 with increasing difficulty and more bloody secretions despite downsizing tube size to 6.5. Called for additional assistance when it became clear that surgical airway maybe necessary. No in house surgeon so ER physicians were called. During event, patient's brother was updated regarding situation and current code status. Mr. Devi's brother said patient's daughter is in route and wants us to continue team's airway intervention. ER physicians were helpful and 6.0 tube was inserted with video laryngoscopy after attempt via needle/guidewire cricothyrodectomy was aborted 2/2 to scar tissue. Attempts to directly communicate with primary team were unsuccessful as emergent was called requiring attending to leave premises. Discussed with care team. Objective - Constitutional Vitals: Vital Signs - 12hr 01/19/19 01/19/19 01/19/19 08:00 08:01 08:15 Pulse Rate 36 L 54 L Pulse Rate [ Anterior Bilateral Throughout] Pulse Rate [ Post-Procedure] Pulse Rate [Pre -Procedure] Respiratory 16 14 14 Rate Respiratory Rate [Anterior Bilateral Throughout] Respiratory Rate [Post- Procedure] Respiratory Rate [Pre- Procedure] Blood Pressure 80/42 Blood Pressure [Post-Procedure ] Blood Pressure [Pre-Procedure] Blood Pressure [Right] O2 Sat by Pulse 100 100 100 Oximetry O2 Sat by Pulse Oximetry [Post -Procedure] O2 Sat by Pulse Oximetry [Pre- Procedure] 01/19/19 01/19/19 01/19/19 08:19 08:30 08:45 Pulse Rate 38 L 38 L 37 L Pulse Rate [ Anterior Bilateral Throughout] Pulse Rate [ Post-Procedure] Pulse Rate [Pre -Procedure] Respiratory 14 16 14 Rate Respiratory Rate [Anterior Bilateral Throughout] Respiratory Rate [Post- Procedure] Respiratory Rate [Pre- Procedure] Blood Pressure 93/49 93/43 Blood Pressure [Post-Procedure ] Blood Pressure [Pre-Procedure] Blood Pressure [Right] O2 Sat by Pulse 100 100 100 Oximetry O2 Sat by Pulse Oximetry [Post -Procedure] O2 Sat by Pulse Oximetry [Pre- Procedure] 01/19/19 01/19/19 01/19/19 09:00 09:15 09:30 Pulse Rate 30 L 31 L 31 L Pulse Rate [ Anterior Bilateral Throughout] Pulse Rate [ Post-Procedure] Pulse Rate [Pre -Procedure] Respiratory 13 13 13 Rate Respiratory Rate [Anterior Bilateral Throughout] Respiratory Rate [Post- Procedure] Respiratory Rate [Pre- Procedure] Blood Pressure 89/26 104/26 97/34 Blood Pressure [Post-Procedure ] Blood Pressure [Pre-Procedure] Blood Pressure [Right] O2 Sat by Pulse 100 100 98 Oximetry O2 Sat by Pulse Oximetry [Post -Procedure] O2 Sat by Pulse Oximetry [Pre- Procedure] 01/19/19 01/19/19 01/19/19 09:45 10:00 10:15 Pulse Rate 30 L 29 L 31 L Pulse Rate [ Anterior Bilateral Throughout] Pulse Rate [ Post-Procedure] Pulse Rate [Pre -Procedure] Respiratory 13 13 9 L Rate Respiratory Rate [Anterior Bilateral Throughout] Respiratory Rate [Post- Procedure] Respiratory Rate [Pre- Procedure] Blood Pressure 82/27 93/40 107/46 Blood Pressure [Post-Procedure ] Blood Pressure [Pre-Procedure] Blood Pressure [Right] O2 Sat by Pulse 99 97 93 Oximetry O2 Sat by Pulse Oximetry [Post -Procedure] O2 Sat by Pulse Oximetry [Pre- Procedure] 01/19/19 01/19/19 01/19/19 10:22 10:24 10:30 Pulse Rate 60 Pulse Rate [ 37 L 40 L Anterior Bilateral Throughout] Pulse Rate [ Post-Procedure] Pulse Rate [Pre -Procedure] Respiratory 15 Rate Respiratory 16 17 Rate [Anterior Bilateral Throughout] Respiratory Rate [Post- Procedure] Respiratory Rate [Pre- Procedure] Blood Pressure 96/43 Blood Pressure [Post-Procedure ] Blood Pressure [Pre-Procedure] Blood Pressure [Right] O2 Sat by Pulse 93 Oximetry O2 Sat by Pulse Oximetry [Post -Procedure] O2 Sat by Pulse Oximetry [Pre- Procedure] 01/19/19 01/19/19 01/19/19 10:45 11:00 11:15 Pulse Rate 60 59 L 50 L Pulse Rate [ Anterior Bilateral Throughout] Pulse Rate [ Post-Procedure] Pulse Rate [Pre -Procedure] Respiratory 15 13 13 Rate Respiratory Rate [Anterior Bilateral Throughout] Respiratory Rate [Post- Procedure] Respiratory Rate [Pre- Procedure] Blood Pressure 126/50 134/44 128/37 Blood Pressure [Post-Procedure ] Blood Pressure [Pre-Procedure] Blood Pressure [Right] O2 Sat by Pulse 97 98 95 Oximetry O2 Sat by Pulse Oximetry [Post -Procedure] O2 Sat by Pulse Oximetry [Pre- Procedure] 01/19/19 01/19/19 01/19/19 11:31 11:45 11:47 Pulse Rate 69 47 L 50 L Pulse Rate [ Anterior Bilateral Throughout] Pulse Rate [ Post-Procedure] Pulse Rate [Pre -Procedure] Respiratory 15 13 13 Rate Respiratory Rate [Anterior Bilateral Throughout] Respiratory Rate [Post- Procedure] Respiratory Rate [Pre- Procedure] Blood Pressure 126/102 116/39 Blood Pressure [Post-Procedure ] Blood Pressure [Pre-Procedure] Blood Pressure 101/32 [Right] O2 Sat by Pulse 94 95 97 Oximetry O2 Sat by Pulse Oximetry [Post -Procedure] O2 Sat by Pulse Oximetry [Pre- Procedure] 01/19/19 01/19/19 01/19/19 12:00 12:15 12:20 Pulse Rate 44 L 46 L Pulse Rate [ Anterior Bilateral Throughout] Pulse Rate [ 30 L Post-Procedure] Pulse Rate [Pre 29 L -Procedure] Respiratory 13 13 Rate Respiratory Rate [Anterior Bilateral Throughout] Respiratory 16 Rate [Post- Procedure] Respiratory 16 Rate [Pre- Procedure] Blood Pressure 116/39 Blood Pressure 89/26 [Post-Procedure ] Blood Pressure 87/29 [Pre-Procedure] Blood Pressure [Right] O2 Sat by Pulse 92 89 Oximetry O2 Sat by Pulse 100 Oximetry [Post -Procedure] O2 Sat by Pulse 100 Oximetry [Pre- Procedure] 04/01/19/19 01/19/19 12:31 12:45 13:00 Pulse Rate 48 L 60 60 Pulse Rate [ Anterior Bilateral Throughout] Pulse Rate [ Post-Procedure] Pulse Rate [Pre -Procedure] Respiratory 13 15 16 Rate Respiratory Rate [Anterior Bilateral Throughout] Respiratory Rate [Post- Procedure] Respiratory Rate [Pre- Procedure] Blood Pressure 101/32 101/32 101/32 Blood Pressure [Post-Procedure ] Blood Pressure [Pre-Procedure] Blood Pressure [Right] O2 Sat by Pulse 84 88 86 Oximetry O2 Sat by Pulse Oximetry [Post -Procedure] O2 Sat by Pulse Oximetry [Pre- Procedure] 01/19/19 15:19 Pulse Rate 48 L Pulse Rate [ Anterior Bilateral Throughout] Pulse Rate [ Post-Procedure] Pulse Rate [Pre -Procedure] Respiratory 15 Rate Respiratory Rate [Anterior Bilateral Throughout] Respiratory Rate [Post- Procedure] Respiratory Rate [Pre- Procedure] Blood Pressure Blood Pressure [Post-Procedure ] Blood Pressure [Pre-Procedure] Blood Pressure [Right] O2 Sat by Pulse 84 Oximetry O2 Sat by Pulse Oximetry [Post -Procedure] O2 Sat by Pulse Oximetry [Pre- Procedure] - Labs CBC & Chem 7: 01/19/19 17:00 01/19/19 14:39 Labs: Abnormal lab results 01/19/19 01/19/19 01/19/19 Range/Units 07:46 07:46 07:46 WBC (4.5-11.0) K/mm3 RBC (3.65-5.03) M/mm3 Hgb (11.8-15.2) gm/dl Hct (35.5-45.6) % MCV (84-94) fl MCH (28-32) pg RDW (13.2-15.2) % Seg Neuts % (Manual) (40.0-70.0) % Lymphocytes % (Manual) (13.4-35.0) % Monocytes % (Manual) (0.0-7.3) % Nucleated RBC % (0.0-0.9) % Lymphocytes # (Manual) (1.2-5.4) K/mm3 INR 0.86 L (0.87-1.13) POC ABG pH (7.35-7.45) POC ABG pCO2 (35-45) Sodium 114 L* (137-145) mmol/L Potassium 6.5 H* (3.6-5.0) mmol/L Chloride 77.4 L (98-107) mmol/L Carbon Dioxide (22-30) mmol/L BUN 33 H (9-20) mg/dL Glucose 128 H (75-100) mg/dL Lactic Acid 2.50 H* (0.7-2.0) mmol/L Total Creatine Kinase < 7 L (55-170) units/L Troponin T (0.00-0.029) ng/mL TSH (0.270-4.200) mlU/mL Urine WBC (Auto) (0.0-6.0) /HPF 01/19/19 01/19/19 01/19/19 Range/Units 07:46 07:48 08:30 WBC 4.2 L (4.5-11.0) K/mm3 RBC 3.07 L (3.65-5.03) M/mm3 Hgb 10.1 L (11.8-15.2) gm/dl Hct 30.7 L (35.5-45.6) % MCV 100 H (84-94) fl MCH 33 H (28-32) pg RDW 17.4 H (13.2-15.2) % Seg Neuts % (Manual) 72.0 H (40.0-70.0) % Lymphocytes % (Manual) 11.0 L (13.4-35.0) % Monocytes % (Manual) 13.0 H (0.0-7.3) % Nucleated RBC % 1.0 H (0.0-0.9) % Lymphocytes # (Manual) 0.5 L (1.2-5.4) K/mm3 INR (0.87-1.13) POC ABG pH (7.35-7.45) POC ABG pCO2 (35-45) Sodium (137-145) mmol/L Potassium (3.6-5.0) mmol/L Chloride (98-107) mmol/L Carbon Dioxide (22-30) mmol/L BUN (9-20) mg/dL Glucose (75-100) mg/dL Lactic Acid (0.7-2.0) mmol/L Total Creatine Kinase (55-170) units/L Troponin T (0.00-0.029) ng/mL TSH 8.530 H (0.270-4.200) mlU/mL Urine WBC (Auto) > 182.0 H (0.0-6.0) /HPF 01/19/19 01/19/19 01/19/19 Range/Units 10:24 10:24 10:24 WBC (4.5-11.0) K/mm3 RBC (3.65-5.03) M/mm3 Hgb (11.8-15.2) gm/dl Hct (35.5-45.6) % MCV (84-94) fl MCH (28-32) pg RDW (13.2-15.2) % Seg Neuts % (Manual) (40.0-70.0) % Lymphocytes % (Manual) (13.4-35.0) % Monocytes % (Manual) (0.0-7.3) % Nucleated RBC % (0.0-0.9) % Lymphocytes # (Manual) (1.2-5.4) K/mm3 INR (0.87-1.13) POC ABG pH 7.305 L (7.35-7.45) POC ABG pCO2 46.8 H (35-45) Sodium (137-145) mmol/L Potassium (3.6-5.0) mmol/L Chloride (98-107) mmol/L Carbon Dioxide (22-30) mmol/L BUN (9-20) mg/dL Glucose (75-100) mg/dL Lactic Acid 3.20 H* (0.7-2.0) mmol/L Total Creatine Kinase (55-170) units/L Troponin T 0.031 H D (0.00-0.029) ng/mL TSH (0.270-4.200) mlU/mL Urine WBC (Auto) (0.0-6.0) /HPF 01/19/19 Range/Units 14:39 WBC (4.5-11.0) K/mm3 RBC (3.65-5.03) M/mm3 Hgb (11.8-15.2) gm/dl Hct (35.5-45.6) % MCV (84-94) fl MCH (28-32) pg RDW (13.2-15.2) % Seg Neuts % (Manual) (40.0-70.0) % Lymphocytes % (Manual) (13.4-35.0) % Monocytes % (Manual) (0.0-7.3) % Nucleated RBC % (0.0-0.9) % Lymphocytes # (Manual) (1.2-5.4) K/mm3 INR (0.87-1.13) POC ABG pH (7.35-7.45) POC ABG pCO2 (35-45) Sodium 116 L* (137-145) mmol/L Potassium 5.7 H (3.6-5.0) mmol/L Chloride 82.9 L (98-107) mmol/L Carbon Dioxide 17 L (22-30) mmol/L BUN 31 H (9-20) mg/dL Glucose 129 H (75-100) mg/dL Lactic Acid (0.7-2.0) mmol/L Total Creatine Kinase (55-170) units/L Troponin T (0.00-0.029) ng/mL TSH (0.270-4.200) mlU/mL Urine WBC (Auto) (0.0-6.0) /HPF
--- NOTE | 2019-01-19 17:25 | Event Note ---
Date: 01/19/19 Patient is a 63-year-old gentleman who was admitted to the ICU because of change in mental status and was diagnosed with hyponatremia and sepsis secondary to UTI. While in the emergency department patient began bleeding from the mouth and nose and decision was made after the patient arrived to the ICU to electively intubate the patient. I was called to bedside because of difficulty with intubation. I was asked by anesthesia to bring a cricothyrotomy kit in case a surgical airway was needed. Luckily the patient was able to be ventilated with bagging and the patient's O2 sat with good bagging was in the high 80%. Patient did have a large amount of blood was being suctioned from the mouth as well as the nose.. Did try to insert a needle into the patient's anterior neck to see if I could aspirate air. Patient has a history of a trach and does have very competent anatomy secondary to pass trach and scarring. I was unable to aspirate air therefore unable to perform a cricothyrotomy. Likely we were able to continue to bag the patient. I attempted to intubate the patient myself using Glidescope. Was able to visualize patient's cords and pass a 6-0 endotracheal tube. Patient's O2 sat did rise into the low 90% and the patient's admitting physician was made aware of the patient changing condition.
[2019-01-19 17:26] LABS: Hematocrit 30.7 % (35.5-45.6); Mean Corpuscular HGB Conc 33 % (32-34); Mean Corpuscular Volume 101 fl (84-94); Platelet Count 185 K/mm3 (140-440); Red Blood Count 3.05 M/mm3 (3.65-5.03); Red Cell Distribution Width 16.7 % (13.2-15.2)
[2019-01-19 17:40] LABS: INR 1.12 (0.87-1.13)
[2019-01-19 17:41] LABS: Partial Thromboplastin Time 33.5 Sec. (24.2-36.6)
--- NOTE | 2019-01-19 17:41 | XRay Report ---
PROCEDURE: XR CHEST 1V AP HISTORY: ETT placement FINDINGS: Single frontal view of the chest was acquired and compared to the prior examination of ailyn ier in the day. There is cardiomegaly. There is an endotracheal tube with its tip at the thoracic inlet. There is air space disease throughout the right lung, new in comparison to prior examination, which could represen t pulmonary edema or pneumonia. There is some left perihilar airspace disease, much less severe than the right lung, which could also be pulmonary edema or pneumonia. IMPRESSION: The endotracheal tube lies in appropriate position Extensive airspace disease in right lung and in left perihilar region, new in comparison to prior exa mination of earlier in the day This document is electronically signed by Ermias Bhatia MD., January 19 2019 05:39:42 PM ET
[2019-01-19 17:44] LABS: BUN/Creatinine Ratio 25; Blood Urea Nitrogen 28 mg/dL (9-20); Calcium 8.1 mg/dL (8.4-10.2); Hemolysis Index 3
[2019-01-19] MEDS: ROCEPHIN/NS 1 GM/50 ML 1 GM/50 ML BAG IV SCH (18:12)
[2019-01-19] MEDS ORDERED: ATROPINE 0.1% (CARDIAC) ONE (23:00)
[2019-01-19 23:11] LABS: BUN/Creatinine Ratio 23; Blood Urea Nitrogen 30 mg/dL (9-20); Calcium 8.6 mg/dL (8.4-10.2); Hemolysis Index 2
[2019-01-20] MEDS ORDERED: NACL 0.9% 1000 ML 1,000 ML ONE (02:19)
[2019-01-20 04:49] LABS: BUN/Creatinine Ratio 24; Blood Urea Nitrogen 31 mg/dL (9-20); Calcium 8.1 mg/dL (8.4-10.2); Hemolysis Index 3
[2019-01-20] MEDS: ADRENALIN 8 MG in NACL 0.9% 250ML 242 ML IV SCH ×2 (08:51→18:05)
--- NOTE | 2019-01-20 09:19 | Progress Note ---
Assessment and Plan Severe sepsis with shock probably secondary to UTI Bleeding from multiple orifices/Possible DIC on admission Hypoxemic respiratory failure Difficult airway,prior trach. 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 of 2 L PRBC if Hgb < 7 monitor for any bleeding Titrate PEEP up to maintain oximetry of the above oximetry level Set tidal Volume set initially at 6-8 cm PBW for MARLENI protection if possible Continue antibiotics and monitor cultures Sedation as needed for patient comfort, adjust to RASS -1 to - 3 DVT prophylaxis PPI prophylaxis Prognosis at this point appears to be grave, poor. Currently DO NOT RESUSCITATE CODE STATUS has been signed a record. We'll continue other supportive measures for the moment No family available at this time for case discussion. Reviewed with staff in detail Critical care time was 45 minutes of [id number] evaluation and coordination of care Subjective Date of service: 01/20/19 Principal diagnosis: hypoxic/hypercarbic respiratory failure Interval history: Intubated and nonresponsive Objective Vital Signs - 12hr 01/19/19 01/19/19 01/19/19 21:30 21:45 22:00 Temperature Pulse Rate 47 L 48 L 45 L Respiratory 18 18 Rate Blood Pressure 100/33 90/24 O2 Sat by Pulse 82 L 80 L Oximetry 01/19/19 01/19/19 01/19/19 22:01 22:15 22:30 Temperature Pulse Rate 49 L 48 L 48 L Respiratory 18 18 18 Rate Blood Pressure 85/25 81/27 81/23 O2 Sat by Pulse 79 L 79 L 77 L Oximetry 01/19/19 01/19/19 01/19/19 22:45 23:00 23:15 Temperature Pulse Rate 48 L 47 L 47 L Respiratory 18 18 18 Rate Blood Pressure 77/27 87/27 79/20 O2 Sat by Pulse 77 L 76 L 75 L Oximetry 01/19/19 01/19/19 01/20/19 23:30 23:45 00:00 Temperature Pulse Rate 47 L 46 L 46 L Respiratory 18 18 18 Rate Blood Pressure 75/27 76/27 79/32 O2 Sat by Pulse 74 L 74 L 72 L Oximetry 01/20/19 01/20/19 01/20/19 00:15 00:30 00:45 Temperature Pulse Rate 45 L 44 L 66 Respiratory 18 18 18 Rate Blood Pressure 76/24 76/26 97/46 O2 Sat by Pulse 71 L 70 L 71 L Oximetry 01/20/19 01/20/19 01/20/19 01:00 01:15 01:30 Temperature Pulse Rate 65 62 62 Respiratory 18 18 18 Rate Blood Pressure 76/37 89/39 85/30 O2 Sat by Pulse 77 L 76 L 73 L Oximetry 01/20/19 01/20/19 01/20/19 01:45 02:00 02:15 Temperature Pulse Rate 61 61 36 L Respiratory 18 18 21 Rate Blood Pressure 81/42 86/44 86/44 O2 Sat by Pulse 75 L 74 L Oximetry 01/20/19 01/20/19 01/20/19 02:31 02:45 03:01 Temperature Pulse Rate 44 L 45 L 39 L Respiratory 18 18 18 Rate Blood Pressure 130/39 75/37 76/31 O2 Sat by Pulse 65 L Oximetry 01/20/19 01/20/19 01/20/19 03:15 03:31 03:45 Temperature Pulse Rate 44 L 43 L 44 L Respiratory 18 18 18 Rate Blood Pressure 75/32 62/29 71/25 O2 Sat by Pulse 69 L 69 L 70 L Oximetry 01/20/19 01/20/19 01/20/19 04:00 04:15 04:30 Temperature Pulse Rate 45 L 45 L 46 L Respiratory 18 19 18 Rate Blood Pressure 65/23 54/18 58/21 O2 Sat by Pulse 79 L 76 L 66 L Oximetry 01/20/19 01/20/19 01/20/19 04:45 04:50 05:00 Temperature Pulse Rate 40 L 44 L 37 L Respiratory 18 17 Rate Blood Pressure 63/21 63/21 62/27 O2 Sat by Pulse 71 L 72 L 74 L Oximetry 01/20/19 01/20/19 01/20/19 05:15 05:31 05:45 Temperature Pulse Rate 42 L 40 L 44 L Respiratory 18 21 18 Rate Blood Pressure 61/27 64/23 56/18 O2 Sat by Pulse 68 L 72 L 71 L Oximetry 01/20/19 01/20/19 01/20/19 06:00 06:15 06:30 Temperature Pulse Rate 44 L 38 L 36 L Respiratory 18 16 25 H Rate Blood Pressure 58/28 58/31 63/24 O2 Sat by Pulse 75 L 74 L 72 L Oximetry 01/20/19 01/20/19 01/20/19 06:45 07:00 07:15 Temperature Pulse Rate 38 L 38 L 38 L Respiratory 22 20 19 Rate Blood Pressure 61/27 61/25 61/22 O2 Sat by Pulse 71 L 72 L 72 L Oximetry 01/20/19 01/20/19 01/20/19 07:31 07:42 07:45 Temperature Pulse Rate 38 L 38 L 38 L Respiratory 22 21 Rate Blood Pressure 60/18 64/22 68/35 O2 Sat by Pulse 70 L 74 L 74 L Oximetry 01/20/19 01/20/19 01/20/19 08:00 08:01 08:15 Temperature 98.2 F Pulse Rate 38 L 39 L Respiratory 21 25 H Rate Blood Pressure 62/26 60/32 O2 Sat by Pulse 80 L 81 L Oximetry 01/20/19 08:31 Temperature Pulse Rate 38 L Respiratory 23 Rate Blood Pressure 59/24 O2 Sat by Pulse 80 L Oximetry Constitutional: no acute distress, other (critically ill) Eyes: non-icteric Neck: no lymphadenopathy, no JVD, other (right IJ in place) Ascultation: Bilateral: diminished breath sounds, rales (sporadic) Cardiovascular: regular rate and rhythm Gastrointestinal: normoactive bowel sounds, other (distended) Extremities: other (right femoral line) Neurologic: unable to assess CBC and BMP: 01/21/19 02:45 01/21/19 02:45 ABG, PT/INR, D-dimer: ABG POC ABG pH 7.320 (7.35-7.45) L 01/19/19 15:04 POC ABG pCO2 45.0 (35-45) 01/19/19 15:04 POC ABG pO2 58 (80-105) L 01/19/19 15:04 POC ABG HCO3 23.1 (22-26 mml/L) 01/19/19 15:04 POC ABG Total CO2 24 (23-27mmol/L) 01/19/19 15:04 POC ABG O2 Sat 87 01/19/19 15:04 PT/INR, D-dimer PT 15.1 Sec. (12.2-14.9) H 01/19/19 Unknown INR 1.12 (0.87-1.13) 01/19/19 Unknown Abnormal lab findings: Abnormal Labs 01/19/19 01/19/19 01/19/19 07:46 07:46 07:46 WBC RBC Hgb Hct MCV MCH RDW Seg Neuts % (Manual) Lymphocytes % (Manual) Monocytes % (Manual) Nucleated RBC % Lymphocytes # (Manual) PT INR 0.86 L POC ABG pH POC ABG pCO2 POC ABG pO2 Sodium 114 L* Potassium 6.5 H* Chloride 77.4 L Carbon Dioxide BUN 33 H Glucose 128 H Lactic Acid 2.50 H* Calcium Phosphorus Total Creatine Kinase < 7 L Troponin T TSH Urine WBC (Auto) 01/19/19 01/19/19 01/19/19 07:46 07:48 08:30 WBC 4.2 L RBC 3.07 L Hgb 10.1 L Hct 30.7 L MCV 100 H MCH 33 H RDW 17.4 H Seg Neuts % (Manual) 72.0 H Lymphocytes % (Manual) 11.0 L Monocytes % (Manual) 13.0 H Nucleated RBC % 1.0 H Lymphocytes # (Manual) 0.5 L PT INR POC ABG pH POC ABG pCO2 POC ABG pO2 Sodium Potassium Chloride Carbon Dioxide BUN Glucose Lactic Acid Calcium Phosphorus Total Creatine Kinase Troponin T TSH 8.530 H Urine WBC (Auto) > 182.0 H 01/19/19 01/19/19 01/19/19 10:24 10:24 10:24 WBC RBC Hgb Hct MCV MCH RDW Seg Neuts % (Manual) Lymphocytes % (Manual) Monocytes % (Manual) Nucleated RBC % Lymphocytes # (Manual) PT INR POC ABG pH 7.305 L POC ABG pCO2 46.8 H POC ABG pO2 Sodium Potassium Chloride Carbon Dioxide BUN Glucose Lactic Acid 3.20 H* Calcium Phosphorus Total Creatine Kinase Troponin T 0.031 H D TSH Urine WBC (Auto) 01/19/19 01/19/19 01/19/19 14:39 15:04 17:00 WBC RBC Hgb Hct MCV MCH RDW Seg Neuts % (Manual) Lymphocytes % (Manual) Monocytes % (Manual) Nucleated RBC % Lymphocytes # (Manual) PT INR POC ABG pH 7.320 L POC ABG pCO2 POC ABG pO2 58 L Sodium 116 L* 123 L D Potassium 5.7 H Chloride 82.9 L 89.8 L Carbon Dioxide 17 L BUN 31 H 28 H Glucose 129 H 135 H Lactic Acid Calcium 8.1 L Phosphorus 4.80 H Total Creatine Kinase Troponin T TSH Urine WBC (Auto) 01/19/19 01/19/19 01/19/19 17:00 22:40 Unknown WBC RBC 3.05 L Hgb 10.0 L Hct 30.7 L MCV 101 H MCH 33 H RDW 16.7 H Seg Neuts % (Manual) Lymphocytes % (Manual) Monocytes % (Manual) Nucleated RBC % Lymphocytes # (Manual) PT 15.1 H INR POC ABG pH POC ABG pCO2 POC ABG pO2 Sodium 121 L Potassium 5.2 H Chloride 86.9 L Carbon Dioxide BUN 30 H Glucose Lactic Acid Calcium Phosphorus 5.20 H Total Creatine Kinase Troponin T TSH Urine WBC (Auto) 01/20/19 04:20 WBC RBC Hgb Hct MCV MCH RDW Seg Neuts % (Manual) Lymphocytes % (Manual) Monocytes % (Manual) Nucleated RBC % Lymphocytes # (Manual) PT INR POC ABG pH POC ABG pCO2 POC ABG pO2 Sodium 120 L Potassium 5.9 H Chloride 87.0 L Carbon Dioxide 20 L BUN 31 H Glucose Lactic Acid Calcium 8.1 L Phosphorus 5.10 H Total Creatine Kinase Troponin T TSH Urine WBC (Auto)
[2019-01-20] MEDS ORDERED: KIONEX PO ONE ×2 (10:00→13:00)
--- NOTE | 2019-01-20 10:35 | Progress Note ---
Assessment and Plan Patient remains in junctional bradycardia. Continue current cardiac management. Potassium remains elevated - will monitor BMPs. Echocardiogram pending. Patient was seen in conjunction with Dr. Macedo, who agrees with assessment and plan. - Patient Problems (1) Altered mental status Current Visit: Yes Status: Acute (2) Dehydration Current Visit: Yes Status: Acute (3) Hyperkalemia Current Visit: Yes Status: Acute (4) Hyponatremia Current Visit: Yes Status: Acute (5) Hypotension Current Visit: Yes Status: Acute (6) Sepsis Current Visit: Yes Status: Acute (7) Hypothyroidism Current Visit: No Status: Chronic (8) History of CVA (cerebrovascular accident) Current Visit: Yes Status: Acute (9) Chronic ulcer of sacral region Current Visit: Yes Status: Acute (10) Dysphagia Current Visit: No Status: Acute (11) UTI (urinary tract infection) Current Visit: No Status: Acute Subjective Date of service: 01/20/19 Principal diagnosis: hypoxic/hypercarbic respiratory failure Interval history: Patient intubated and sedated and is unresponsive. Remains on dopamine and epi drips. Telemetry shows junctional bradycardia with HR in 30s and 40s. Objective Last Vital Signs Temp 98.2 F 01/20/19 08:00 Pulse 38 L 01/20/19 08:31 Resp 23 01/20/19 08:31 BP 59/24 01/20/19 08:31 Pulse Ox 80 L 01/20/19 08:31 - Physical Examination HEENT: Positive: Normocephaly Neck: Positive: neck supple, trachea midline Cardiac: Positive: Bradycardia Lungs: Positive: Ventilated Respirations Neuro: Positive: Other (Unresponsive ) Abdomen: Positive: Soft, Active Bowel Sounds, Distended. Negative: Tender Skin: Positive: Clear. Negative: Rash Musculoskeletal: No Fluid Collection Extremities: Present: edema (trace nonpitting bilateral edema) - Labs and Meds Coagulation 01/19/19 Range/Units Unknown PT 15.1 H (12.2-14.9) Sec. INR 1.12 (0.87-1.13) APTT 33.5 (24.2-36.6) Sec. Lipids 01/19/19 Range/Units 10:24 Triglycerides 78 (2-149) mg/dL Cholesterol 130 (50-199) mg/dL HDL Cholesterol 53 (40-59) mg/dL Cholesterol/HDL Ratio 2.45 % CBC 01/19/19 Range/Units 17:00 WBC 7.2 (4.5-11.0) K/mm3 RBC 3.05 L (3.65-5.03) M/mm3 Hgb 10.0 L (11.8-15.2) gm/dl Hct 30.7 L (35.5-45.6) % Plt Count 185 (140-440) K/mm3 Comprehensive Metabolic Panel 01/19/19 01/19/19 01/19/19 Range/Units 14:39 17:00 22:40 Sodium 116 L* 123 L D 121 L (137-145) mmol/L Potassium 5.7 H 4.7 5.2 H (3.6-5.0) mmol/L Chloride 82.9 L 89.8 L 86.9 L (98-107) mmol/L Carbon Dioxide 17 L 22 22 (22-30) mmol/L BUN 31 H 28 H 30 H (9-20) mg/dL Creatinine 1.3 1.1 1.3 (0.8-1.5) mg/dL Glucose 129 H 135 H 98 (75-100) mg/dL Calcium 9.3 8.1 L 8.6 (8.4-10.2) mg/dL 01/20/19 Range/Units 04:20 Sodium 120 L (137-145) mmol/L Potassium 5.9 H (3.6-5.0) mmol/L Chloride 87.0 L (98-107) mmol/L Carbon Dioxide 20 L (22-30) mmol/L BUN 31 H (9-20) mg/dL Creatinine 1.3 (0.8-1.5) mg/dL Glucose 76 (75-100) mg/dL Calcium 8.1 L (8.4-10.2) mg/dL - Imaging and Cardiology EKG: image reviewed - Telemetry EKG Rhythm: Junctional - EKG Supraventricular dysrhythmia: junctional rhythm AV and intraventricular conduction: intraventricular conducti
[2019-01-20 11:46] LABS: Calcium 8.1 mg/dL (8.4-10.2)
[2019-01-20] MEDS: PEPCID IV SCH ×2 (12:08→23:03)
--- NOTE | 2019-01-20 15:26 | Progress Note ---
Assessment and Plan Assessment and plan: Severe sepsis with shock probably secondary to UTI -On IV antibiotic and dopamine drip -Urine culture positive for gram-negative lalit, will follow up -Blood cultures pending Bleeding from multiple orifices/Possible DIC -will monitor H/H and coagulation profile -Condition guarded with poor prognosis Acute hypoxic and hypercapnic respiratory failure -Status post intubation on mechanical ventilator -Pulmonology following Symptomatic severe sinus bradycardia -Status post multiple doses of atropine -On epinephrine drip -Cardiology following Severe hyponatremia -Level improving, will cont IVF -Nephrology consulted ASHOK, probably vasomotor nephropathy -On IV fluid, will monitor creatinine level Recurrent Hyperkalemia -We'll continue Kayexalate and monitor potassium level -Nephrology consulted Acute on chronic metabolic encephalopathy -Likely due to the acute process -Head CT scan pending DM2 with hypoglycemia -Dextrose IV fluid started -Dietitian consulted for tube feeding Hypothyroidism -TSH level elevated but free T4 normal -On a stress dose IV steroid and IV Synthroid by pulmonology 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 Patient is DO NOT RESUSCITATE only. History Interval history: Patient is intubated. No significant change since admission Hospitalist Physical - Constitutional Vitals: Temp Pulse Resp BP Pulse Ox 97.7 F 50 L 23 97/38 89 01/20/19 12:00 01/20/19 12:13 01/20/19 08:31 01/20/19 12:13 01/20/19 12:13 General appearance: Present: mild distress - EENT Eyes: Present: PERRL ENT: other (patient is intubated) - Neck Neck: Present: supple - Respiratory Respiratory effort: labored Respiratory: bilateral: rales - Cardiovascular Rhythm: regular (with bradycardia) Heart Sounds: Present: S1 & S2 - Extremities Extremity abnormal: edema (in bilateral upper and lower extremities) - Abdominal General gastrointestinal: distended (firm on palpation), normal bowel sounds - Integumentary Integumentary: Present: erythema (sacral decubitus ulcers) - Neurologic Neurologic: other (patient is unresponsive) Results - Labs CBC & Chem 7: 01/19/19 17:00 01/20/19 Unknown Labs: Laboratory Last Values WBC 7.2 K/mm3 (4.5-11.0) 01/19/19 17:00 RBC 3.05 M/mm3 (3.65-5.03) L 01/19/19 17:00 Hgb 10.0 gm/dl (11.8-15.2) L 01/19/19 17:00 Hct 30.7 % (35.5-45.6) L 01/19/19 17:00 MCV 101 fl (84-94) H 01/19/19 17:00 MCH 33 pg (28-32) H 01/19/19 17:00 MCHC 33 % (32-34) 01/19/19 17:00 RDW 16.7 % (13.2-15.2) H 01/19/19 17:00 Plt Count 185 K/mm3 (140-440) 01/19/19 17:00 Lymph % (Auto) Administrative Tech 01/19/19 07:48 Saunders % (Auto) Administrative Tech 01/19/19 07:48 Eos % (Auto) Administrative Tech 01/19/19 07:48 Baso % (Auto) Administrative Tech 01/19/19 07:48 Lymph # Administrative Tech 01/19/19 07:48 Saunders # Administrative Tech 01/19/19 07:48 Eos # Administrative Tech 01/19/19 07:48 Baso # Administrative Tech 01/19/19 07:48 Add Manual Diff Complete 01/19/19 07:48 Total Counted 100 01/19/19 07:48 Seg Neutrophils % Administrative Tech 01/19/19 07:48 Seg Neuts % (Manual) 72.0 % (40.0-70.0) H 01/19/19 07:48 Band Neutrophils % 1.0 % 01/19/19 07:48 Lymphocytes % (Manual) 11.0 % (13.4-35.0) L 01/19/19 07:48 Reactive Lymphs % (Man) 2.0 % 01/19/19 07:48 Monocytes % (Manual) 13.0 % (0.0-7.3) H 01/19/19 07:48 Eosinophils % (Manual) 0 % (0.0-4.3) 01/19/19 07:48 Basophils % (Manual) 0 % (0.0-1.8) 01/19/19 07:48 Metamyelocytes % 1.0 % 01/19/19 07:48 Myelocytes % 0 % 01/19/19 07:48 Promyelocytes % 0 % 01/19/19 07:48 Blast Cells % 0 % 01/19/19 07:48 Nucleated RBC % 1.0 % (0.0-0.9) H 01/19/19 07:48 Seg Neutrophils # Administrative Tech 01/19/19 07:48 Seg Neutrophils # Man 3.0 K/mm3 (1.8-7.7) 01/19/19 07:48 Band Neutrophils # 0.0 K/mm3 01/19/19 07:48 Lymphocytes # (Manual) 0.5 K/mm3 (1.2-5.4) L 01/19/19 07:48 Abs React Lymphs (Man) 0.1 K/mm3 01/19/19 07:48 Monocytes # (Manual) 0.5 K/mm3 (0.0-0.8) 01/19/19 07:48 Eosinophils # (Manual) 0.0 K/mm3 (0.0-0.4) 01/19/19 07:48 Basophils # (Manual) 0.0 K/mm3 (0.0-0.1) 01/19/19 07:48 Metamyelocytes # 0.0 K/mm3 01/19/19 07:48 Myelocytes # 0.0 K/mm3 01/19/19 07:48 Promyelocytes # 0.0 K/mm3 01/19/19 07:48 Blast Cells # 0.0 K/mm3 01/19/19 07:48 WBC Morphology Not Reportable 01/19/19 07:48 Hypersegmented Neuts Not Reportable 01/19/19 07:48 Hyposegmented Neuts Not Reportable 01/19/19 07:48 Hypogranular Neuts Not Reportable 01/19/19 07:48 Smudge Cells Not Reportable 01/19/19 07:48 Toxic Granulation Not Reportable 01/19/19 07:48 Toxic Vacuolation Not Reportable 01/19/19 07:48 Dohle Bodies Not Reportable 01/19/19 07:48 Pelger-Huet Anomaly Not Reportable 01/19/19 07:48 Kaitlyn Rods Not Reportable 01/19/19 07:48 Platelet Estimate Consistent w auto 01/19/19 07:48 Clumped Platelets Not Reportable 01/19/19 07:48 Plt Clumps, EDTA Not Reportable 01/19/19 07:48 Large Platelets Not Reportable 01/19/19 07:48 Giant Platelets Few 01/19/19 07:48 Platelet Satelliting Not Reportable 01/19/19 07:48 Plt Morphology Comment Not Reportable 01/19/19 07:48 RBC Morphology Not Reportable 01/19/19 07:48 Dimorphic RBCs Not Reportable 01/19/19 07:48 Polychromasia Not Reportable 01/19/19 07:48 Hypochromasia Not Reportable 01/19/19 07:48 Poikilocytosis Not Reportable 01/19/19 07:48 Anisocytosis Not Reportable 01/19/19 07:48 Microcytosis Not Reportable 01/19/19 07:48 Macrocytosis Not Reportable 01/19/19 07:48 Spherocytes Not Reportable 01/19/19 07:48 Pappenheimer Bodies Not Reportable 01/19/19 07:48 Sickle Cells Not Reportable 01/19/19 07:48 Target Cells 1+ 01/19/19 07:48 Tear Drop Cells Not Reportable 01/19/19 07:48 Ovalocytes Not Reportable 01/19/19 07:48 Helmet Cells Not Reportable 01/19/19 07:48 [place] Bodies Not Reportable 01/19/19 07:48 [place] Rings Not Reportable 01/19/19 07:48 Stedman Cells Not Reportable 01/19/19 07:48 Bite Cells Not Reportable 01/19/19 07:48 Crenated Cell Not Reportable 01/19/19 07:48 Elliptocytes Not Reportable 01/19/19 07:48 Acanthocytes (Spur) Not Reportable 01/19/19 07:48 Rouleaux Not Reportable 01/19/19 07:48 Hemoglobin C Crystals Not Reportable 01/19/19 07:48 Schistocytes Not Reportable 01/19/19 07:48 Malaria parasites Not Reportable 01/19/19 07:48 Dionisio Bodies Not Reportable 01/19/19 07:48 Hem Pathologist Commnt No 01/19/19 07:48 PT 15.1 Sec. (12.2-14.9) H 01/19/19 Unknown INR 1.12 (0.87-1.13) 01/19/19 Unknown APTT 33.5 Sec. (24.2-36.6) 01/19/19 Unknown POC ABG pH 7.320 (7.35-7.45) L 01/19/19 15:04 POC ABG pCO2 45.0 (35-45) 01/19/19 15:04 POC ABG pO2 58 (80-105) L 01/19/19 15:04 POC ABG HCO3 23.1 (22-26 mml/L) 01/19/19 15:04 POC ABG Total CO2 24 (23-27mmol/L) 01/19/19 15:04 POC ABG O2 Sat 87 01/19/19 15:04 POC ABG Base Excess -3 ((-2) - (+3)mmol/L) 01/19/19 15:04 FiO2 100 % 01/19/19 15:04 Sodium 120 mmol/L (137-145) L 01/20/19 Unknown Potassium 6.2 mmol/L (3.6-5.0) H* 01/20/19 Unknown Chloride 85.8 mmol/L (98-107) L 01/20/19 Unknown Carbon Dioxide 17 mmol/L (22-30) L 01/20/19 Unknown Anion Gap 22 mmol/L 01/20/19 Unknown BUN 33 mg/dL (9-20) H 01/20/19 Unknown Creatinine 1.6 mg/dL (0.8-1.5) H 01/20/19 Unknown Estimated GFR 53 ml/min 01/20/19 Unknown BUN/Creatinine Ratio 21 % 01/20/19 Unknown Glucose 71 mg/dL (75-100) L 01/20/19 Unknown Osmolality 261 Mosm/kg 01/19/19 14:39 Lactic Acid 3.20 mmol/L (0.7-2.0) H* 01/19/19 10:24 Calcium 8.1 mg/dL (8.4-10.2) L 01/20/19 Unknown Phosphorus 5.90 mg/dL (2.5-4.5) H 01/20/19 Unknown Magnesium 1.90 mg/dL (1.7-2.3) 01/20/19 Unknown Ammonia 34.0 umol/L (25-60) 01/19/19 07:48 Total Creatine Kinase < 7 units/L (55-170) L 01/19/19 07:46 Troponin T 0.031 ng/mL (0.00-0.029) H D 01/19/19 10:24 Triglycerides 78 mg/dL (2-149) 01/19/19 10:24 Cholesterol 130 mg/dL (50-199) 01/19/19 10:24 LDL Cholesterol Direct 71 mg/dL (50-130) 01/19/19 10:24 HDL Cholesterol 53 mg/dL (40-59) 01/19/19 10:24 Cholesterol/HDL Ratio 2.45 % 01/19/19 10:24 TSH 8.530 mlU/mL (0.270-4.200) H 01/19/19 07:46 Free T4 0.92 ng/dL (0.76-1.46) 01/19/19 14:39 Urine Color Yellow (Yellow) 01/19/19 08:30 Urine Turbidity Turbid (Clear) 01/19/19 08:30 Urine pH 5.0 (5.0-7.0) 01/19/19 08:30 Ur Specific [place] 1.020 (1.003-1.030) 01/19/19 08:30 Urine Protein 100 mg/dl mg/dL (Negative) 01/19/19 08:30 Urine Glucose (UA) Neg mg/dL (Negative) 01/19/19 08:30 Urine Ketones Neg mg/dL (Negative) 01/19/19 08:30 Urine Blood Sm (Negative) 01/19/19 08:30 Urine Nitrite Neg (Negative) 01/19/19 08:30 Urine Bilirubin Sm (Negative) 01/19/19 08:30 Urine Ictotest Negative (Negative) 01/19/19 08:30 Urine Urobilinogen < 2.0 mg/dL (<2.0) 01/19/19 08:30 Ur Leukocyte Esterase Mod (Negative) 01/19/19 08:30 Urine WBC (Auto) > 182.0 /HPF (0.0-6.0) H 01/19/19 08:30 Urine RBC (Auto) 134.0 /HPF (0.0-6.0) 01/19/19 08:30 Urine Bacteria (Auto) 4+ /HPF (Negative) 01/19/19 08:30 Urine WBC Clumps 3+ /HPF 01/19/19 08:30 Ur Transition Epith Cell 6 /HPF 01/19/19 08:30 Amorphous Crystals 2+ 01/19/19 08:30 Active Medications - Current Medications Current Medications: Generic Name Dose Route Start Last Admin Trade Name Freq PRN Reason Stop Dose Admin Dextrose 50 ml 01/19/19 16:42 D50w (25gm) Syringe IV PRN PRN Hypoglycemia Famotidine 20 mg 01/20/19 11:00 01/20/19 12:08 Pepcid IV 20 mg BID PRISCA Administration Hydrocortisone Sodium Succinate 100 mg 01/19/19 22:00 Solu-Cortef IV Q8H PRISCA Ceftriaxone Sodium 1 gm in 50 mls @ 100 mls/hr 01/19/19 16:00 01/19/19 18:12 Rocephin/Ns 1 Gm/50 Ml IV 01/25/19 16:29 100 mls/hr Q24H PRISCA Administration Protocol Dopamine HCl/Dextrose 800 mg in 250 mls @ 4.082 mls/hr 01/19/19 20:00 Intropin Drip 800 Mg/D5w 250 Ml IV TITR PRISCA Protocol 2 MCG/KG/MIN Epinephrine 8 mg/ Sodium 250 mls @ 3.75 mls/hr 01/20/19 09:00 01/20/19 08:51 Chloride IV 2 mcg/min TITR PRISCA 3.75 mls/hr Administration Protocol 2 MCG/MIN Insulin Human Lispro 0 unit 01/19/19 18:00 Humalog SUB-Q Q6HR PRISCA Protocol Levothyroxine Sodium 100 mcg 01/19/19 06:00 01/19/19 12:32 Synthroid IV 100 mcg DAILY@0600 PRISCA Administration Nutrition/Malnutrition Assess - Dietary Evaluation Nutrition/Malnutrition Findings: Nutrition Notes Start: 01/20/19 12:26 Freq: Status: Active Protocol: Document 01/20/19 12:26 MAYITO (Rec: 01/20/19 12:33 MAYITO [email or web address]) Nutrition Notes Need for Assessment generated from: box strapper,MST Initial or Follow up Assessment Current Diagnosis Decubitus(Pressure Ulcer), Diabetes,Sepsis,Hypertension, Stroke,Hyperlipidemia Other Pertinent Diagnosis AMS, Bradycardia Current Diet No diet ordered Labs/Tests Na 120 K 5.9 BUN 31 Phos 5.1 Pertinent Medications Dopamine gtt, Epinephrine gtt, SoluCortef Height 5 ft 11 in Weight 104.4 kg [place] Body Weight (kg) 78.18 BMI 32.1 Weight change and time frame Current wt obtained from bed scale Weight Status Obese Subjective/Other Information Pt screened for malnutrition risk and hx of receiving NTR support. Pt on vent support. Pt been bleeding from the mouth. Awaiting TF consult. Burn Absent Trauma Absent #1 Nutrition Diagnosis Inadequate oral intake Etiology mech ventilation As Evidenced by Signs and Symptoms pt NPO Is patient on ventilator? Yes Is Patient Ambulatory and/or Out of Bed No REE-([facility]-confined to bed) 2226.336 Kcal/Kg value to use for calculation 17 Approximate Energy Requirements Using 1775 kcal/Kg Calculation Used for Recommendations Kcal/kg Additional Notes Pro needs 2g/kgIBW: 156g/day Fluid needs 1ml/kcal Nutrition Intervention Nutrition Support: Start EN support when medically feasible Goal #1 Start EN support to meet nutrient needs Anticipated Discharge Needs: Continue EN support Follow-Up By: 01/21/19 Additional Comments F/U: TF consult, vent status
[2019-01-20] MEDS: INTROPIN DRIP 800 MG/D5W 250 ML 800 MG/250 ML BAG IV SCH ×2 (15:30→21:40)
[2019-01-20] MEDS: ROCEPHIN/NS 1 GM/50 ML 1 GM/50 ML BAG IV SCH (15:58)
[2019-01-20] MEDS ORDERED: NACL 0.9% 1000 ML 1,000 ML IV SCH (16:00)
[2019-01-20] MEDS ORDERED: D5NS 1,000 ML IV SCH (16:00)
--- NOTE | 2019-01-20 16:41 | Consultation ---
History of Present Illness - History of Present Illness Thank you for the consultation ! Patient was evaluated today My assessment and plan are as follows; Severe hyponatremia in a patient whose admission sodium was around 114 upon ar rival yesterday around 7,48 in the morning current sodium is around 120, which is improving satisfactorily etiology of hyponatremia appears to be complex and multi-factorial at this point we will order for workup of hyponatremia patient appears to be acutely ill and clinically doing very poorly his prognosis appears to be very poor family has made him DNR, Evolving acute severe renal failure creatinine has increased from 1.3-1.9 potassium has increased to 7.0 and bicarbonate has gone down from 22-18 his current lactic acid level is, 3.2 Moderately severe hyperkalemia in a patient who was bradycardic to begin with, his prognosis is very poor had a long discussion with patient's family over the phone along with ICU nurse and the family has decided to treat medically only they do not want the patient to be on dialysis, there are rare patient's poor prognosis in general At this time we will treat the hyperkalemia medically. Patient's family is aware that he is doing poorly, is critically ill and he may not make it through this admission, there were explained at length about the dialysis process line placement etc. but they have clearly chosen not to proceed with hemodialysis this was discussed with patient's power of fondant cooker as well on a conference call with ICU nurse we would like to treat hyperkalemia with albuterol 20 mg, dextrose 3 ampules, 10 units of regular insulin IV, sodium bicarbonate infusion, patient has received several doses of Kayexalate, will also give him 2 A of calcium chloride given his large BMI His overall prognosis appears to be very poor, does have prior history of CVA, seizure disorder, sodium is improving gradually there is no emergent indication for 3% saline Patient will benefit from a neurology evaluation in my opinion Mild hyperphosphatemia likely resulting from renal failure, his total CK appears to be less than 7 Patient has history of myxedema coma current free T4 is normal at 0.9 to Would like to do a follow-up on the basic metabolic profile Depending on his sodium level we may consider starting him on sodium bicarbonate infusion and dextrose His overall prognosis appears to be very poor, his mortality risk is very high is currently being seen by multiple disciplines including primary team, ICU, cardiology and pulmonary service family is aware about the poor prognosis high mortality risk and they have chosen to continue with the conservative treatment, no dialysis, quality of life is poor Discussed with patient's daughter Erin and sister Lavonne, over the phone, on conference call with ICU nurse according to family his quality of life has been very poor ever since he went into myxedema coma We'll continue to follow and make recommendation from renal standpoint More than 75 minutes were spent in direct patient care today in ICU setting taking care of a critically ill patient All renal related questions were answered and simple Afghan pertinent lab studies as well as imaging results were also discussed We will continue to follow and make recommendations from renal standpoint. Thank you for the consultation Author: Daniel Campbell M.D. [facility] Nephrology, [address] [place] [address] Tel; [phone] History of presenting illness Patient is a 53-year-old -Croat[place] male who has been admitted here with multiple comorbidities, patient has also been noted to be severely hyponatremic as well as hyperkalemic which is currently getting worse to the point that his current potassium is around 6.2, patient has been given several doses of Kayexalate without much success earlier today and family had discussed about her DNR status, nurse informed me that his current potassium is now 7. Patient off and on has been bradycardic ever since admission and has also been seen by cardiology. When I walked in the room there were no family members patient was intubated he was also having periodic myoclonic movement as well as twitching. He is currently also on vasopressors for hypo-tension and appears to be doing very poorly. 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 Upon arrival was noted to be severely hypotensive and bradycardic. For hyperkalemia and advised the nurse to give him 3 ampules of D50, 10 units of Regular Insulin 2 milligrams calcium chloride or gluconate available, 20 mg albuterol as well as sodium bicarbonate infusion I'm also planning to call the patient's family Events of this hospitalization were reviewed Upon arrival potassium was 6.5 patient was noted to be bradycardic, patient has been seen and followed by cardiology Past medical history is significant for Hypertension Diabetes hyperlipidemia CVA seizure disorder Tracheotomy Myxedema coma 2015 very poor functional status per family Allergies: None Home medication present medication: Reviewed Social history Intubated unable to obtain chart reviewed Family history: Reviewed Review of systems: Unable to obtain Patient is intubated and cannot provide any history Discussed with patient's family he has been doing very poorly since arrival aware of his poor prognosis and have made him currently DNR Limited review of systems due to above, Physical examination Vitals: Reviewed General: intubated Doing poorly HEENT: Oral mucosa moist no pallor or icterus Neck: Supple without any JVD thyromegaly or nodular mass Chest: few basilar crackles Heart: Regular rate and rhythm S1-S2 heard no S3-S4 Abdomen: Soft nontender, bowel sounds present no renal bruit no suprapubic masses no CVA tenderness noted Extremity: Patient has peripheral edema thickening of skin Endocrine: Thyroid could not be palpated Psychiatric: No agitation and aggression noted Patient noted to have occasional myoclonus Musculoskeletal: No joint effusion noted Labs and x-rays: Reviewed from this admission Past History Past Medical History: diabetes, hypertension, hyperlipidemia, hypothyroidism (with Myxedema com in 2014), stroke Past Surgical History: Other (tracheostomy) Social history: . denies: smoking, alcohol abuse Family history: other (unable to obtain because patient is nonverbal) Medications and Allergies Allergies Allergy/AdvReac Type Severity Reaction Status Date / Time No Known Allergies Allergy Verified 01/19/19 08:23 Home Medications Medication Instructions Recorded Confirmed Last Taken Type Baclofen [Lioresal] 5 mg PO TID 10/18/17 03/09/18 Unknown History Levothyroxine (Nf) [Synthroid (Nf)] 200 mcg NGTUBE QAM 10/18/17 03/09/18 Unknown History Liothyronine Sodium [Cytomel] 5 mcg NGTUBE QAM 10/18/17 03/09/18 10/30/17 History OXcarbazepine [Trileptal] 900 mg NGTUBE BID 10/18/17 03/09/18 Unknown History Valproic Acid (As Sodium Salt) 20 ml NGTUBE Q12H 10/18/17 03/09/18 Unknown History [Depakene] amLODIPine [Norvasc] 10 mg NGTUBE DAILY 10/18/17 03/09/18 Unknown History levETIRAcetam [Keppra TAB] 1,000 mg NGTUBE BID 10/18/17 03/09/18 Unknown History Insulin Aspart [NovoLOG Flexpen] See Protocol SQ Q6H 30 Days 10/26/17 03/09/18 Unknown Rx insuln.pen Insulin NPH/Regular [NovoLIN 70/30] 18 unit SQ BIDDIAB 30 Days ml 10/26/17 03/09/18 Unknown Rx hydrALAZINE [Apresoline TAB] 25 mg PO Q8HR #90 tablet 10/26/17 03/09/18 Unknown Rx Polyethylene Glycol 3350 [Miralax 17 gm PO BID #30 packet 11/10/17 03/09/18 Unknown Rx 3350] Sennosides/Docusate [Senokot S] 1 tab PO Q12HR #30 tablet 11/10/17 03/09/18 Unknown Rx cloNIDine-TTS PATCH [Catapres-Tts 0.3 mg TD QWEEK patch 03/12/18 Unknown Rx 0.3mg Patch] Active Meds: Active Medications Dextrose (D50w (25gm) Syringe) 50 ml IV PRN PRN PRN Reason: Hypoglycemia Famotidine (Pepcid) 20 mg IV BID PRISCA Last Admin: 01/20/19 12:08 Dose: 20 mg Documented by: Hydrocortisone Sodium Succinate (Solu-Cortef) 100 mg IV Q8H PRISCA Last Admin: 01/20/19 15:59 Dose: 100 mg Documented by: Ceftriaxone Sodium (Rocephin/Ns 1 Gm/50 Ml) 1 gm in 50 mls @ 100 mls/hr IV Q24H PRISCA; Protocol Stop: 01/25/19 16:29 Last Admin: 01/20/19 15:58 Dose: 100 mls/hr Documented by: Dopamine HCl/Dextrose (Intropin Drip 800 Mg/D5w 250 Ml) 800 mg in 250 mls @ 4.082 mls/hr IV TITR PRISCA; Protocol Last Admin: 01/20/19 15:30 Dose: 20 mcg/kg/min, 40.823 mls/hr Documented by: Epinephrine 8 mg/ Sodium (Chloride) 250 mls @ 3.75 mls/hr IV TITR PRISCA; Protocol Last Admin: 01/20/19 08:51 Dose: 2 mcg/min, 3.75 mls/hr Documented by: Dextrose/Sodium Chloride (D5ns) 1,000 mls @ 42 mls/hr IV DIRECT PRISCA Last Admin: 01/20/19 15:58 Dose: 42 mls/hr Documented by: Insulin Human Lispro (Humalog) 0 unit SUB-Q Q6HR PRISCA; Protocol Levothyroxine Sodium (Synthroid) 100 mcg IV DAILY@0600 [facility] Last Admin: 01/19/19 12:32 Dose: 100 mcg Documented by: Exam - Vital Signs Vital signs: Vital Signs Resp Pulse Ox 16 100 01/19/19 08:00 01/19/19 08:00 Results - Lab Results 01/21/19 02:45 01/21/19 20:00 Most recent lab results Calcium 8.1 mg/dL (8.4-10.2) L 01/20/19 Unknown Phosphorus 5.90 mg/dL (2.5-4.5) H 01/20/19 Unknown Magnesium 1.90 mg/dL (1.7-2.3) 01/20/19 Unknown
[2019-01-20] MEDS ORDERED: CALCIUM CHLORIDE IVP ONE ×3 (17:09→21:53)
[2019-01-20] MEDS ORDERED: D50W (25GM) Syringe IV ONE ×4 (17:11→21:50)
[2019-01-20] MEDS ORDERED: HumuLIN R IV ONE ×2 (17:13→21:51)
[2019-01-20] MEDS: HumaLOG SUB-Q SCH ×2 (17:16→18:11)
[2019-01-20] MEDS: D50W (25GM) Syringe IV PRN (17:58)
[2019-01-20] MEDS ORDERED: CALCIUM CHLORIDE 1,000 MG in NACL 0.9% 100 ML IV ONE ×3 (18:00→22:00)
[2019-01-20] MEDS ORDERED: PROVENTIL IH ONE ×3 (19:17→22:00)
[2019-01-20] MEDS ORDERED: ATIVAN ONE (19:33)
[2019-01-20] MEDS ORDERED: LASIX IV ONE (21:54)
[2019-01-20] MEDS ORDERED: NACL 0.9% IV ONE (21:54)
[2019-01-20] MEDS ORDERED: ALBURX 25% (ALBUMIN) IV ONE (21:54)
--- NOTE | 2019-01-20 21:59 | Event Note ---
Labs were reviewed from this evening potassium appears to be improving to some degree, at this point we would like to repeat the regimen of insulin and dextrose calcium albuterol would also like to start the patient on sodium bicarbonate infusion Increase the dose of hydrocortisone given the large BMI We will also give albumin 50 g IV 1 to improve his hypotension S patient is developing fever likely septic Bicarbonate infusion total 1 L for now followed by 1 50 cc an hour We'll repeat another basic metabolic profile in about 3-4 hours would also like to give him Lasix after albumin and bicarbonate infusion to improve hyperkalemia Overall prognosis remains very poor continue with medical management for now as discussed with family/family does not want any dialysis discussed with power of associate attorney earlier
[2019-01-20] MEDS ORDERED: SODIUM BICARBONATE 150 MEQ in D5W 1,000 ML IV SCH (22:00)
[2019-01-20 23:14] LABS: Calcium 9.2 mg/dL (8.4-10.2)
[2019-01-21] MEDS: HumaLOG SUB-Q SCH ×4 (00:36→19:24)
[2019-01-21] MEDS ORDERED: TYLENOL PO PRN (02:23)
[2019-01-21 03:16] LABS: Hemoglobin 7.6 gm/dl (11.8-15.2); Mean Corpuscular HGB Conc 32 % (32-34); Mean Corpuscular Volume 99 fl (84-94); Red Blood Count 2.36 M/mm3 (3.65-5.03); Red Cell Distribution Width 16.4 % (13.2-15.2)
[2019-01-21 03:18] LABS: Platelet Count 97 K/mm3 (140-440)
[2019-01-21 03:19] LABS: Hematocrit 25.1 % (35.5-45.6)
[2019-01-21 03:27] LABS: Calcium 9.1 mg/dL (8.4-10.2)
[2019-01-21 03:30] LABS: Albumin 3.1 g/dL (3.9-5); Bilirubin,Direct 0.3 mg/dL (0-0.2)
[2019-01-21] MEDS: INTROPIN DRIP 800 MG/D5W 250 ML 800 MG/250 ML BAG IV SCH ×2 (03:59→21:02)
[2019-01-21] MEDS: SYNTHROID IV SCH (05:42)
[2019-01-21 07:11] LABS: Band Neutrophils # (Manual) 11.1 K/mm3; Basophils % (Manual) 0 % (0.0-1.8); Eosinophils % (Manual) 0 % (0.0-4.3); Total Cells Counted 100
[2019-01-21 07:14] LABS: Anisocytosis 1+; Target Cells 2+
[2019-01-21 07:15] LABS: Dohle Bodies Few; Large Platelets Few
[2019-01-21 07:16] LABS: Platelet Estimate Appears Decreased
--- NOTE | 2019-01-21 08:55 | Progress Note ---
Subjective Principal diagnosis: hypoxic/hypercarbic respiratory failure Interval history: Patient was seen today for follow-up on multiple renal related issues Events of this hospitalization noted Blood pressure appears to be better Potassium is improving Patient remains critically ill Having less myoclonus/twitching/jerks Vitals labs intake output medications were reviewed Social history: Reviewed Allergies: Reviewed Family history: Reviewed Physical examination HEENT: Oral mucosa moist no pallor or icterus Neck: Supple no JVD Chest: Bilateral few basilar crackles CVS: Regular rate and rhythm S1 and S2 heard Abdomen: Soft nontender no suprapubic masses no organomegaly appreciable Extremity: Skin appears to have changes of myxedema Musculoskeletal: No joint effusion noted in knees and ankle Neurological: Alert does not follow commands Dermatology: No petechial rashes Psychiatry: No evidence of any agitation and aggression noted Assessment and plan Acute kidney injury: Renal function appears to be stabilizing, continue to monitor intake and output Hyponatremia severe currently improving like expected Hyperkalemia severe currently being treated medically patient is responding to the medical regimen Hypotension, sepsis-like picture currently on vasopress he will need to continue with IV albumin for at least 2-3 days Respiratory failure currently intubated on ventilatory support Lactic acidosis patient needs follow-up on lactate level Hyperphosphatemia currently stable repeat phosphorus was 4.5 magnesium level was normal at 1.9 Abnormal liver enzymes likely due to sepsis Abnormal troponin: Multifactorial patient with bradycardia Metabolic acidosis slowly improving current bicarbonate around 25 Continue with bicarbonate infusion for now as tolerated Had a long discussion with patient's family yesterday including power of attorney law clerk a family has chosen not to proceed with dialysis due to overall poor health status and patient being critically ill, Significant drop in hemoglobin currently 7.6 to be followed by primary team Leukocytosis white cell count has been noted to be around 18.8 patient has been febrile likely patient is septic Prognosis: Very poor, mortality risks still remains very high Continue with supportive care management of electrolytes More than 35 minutes was spent in direct patient care and critical care setting at the bedside We'll continue to follow and make recommendation from renal standpoint Objective - Vital Signs Vital signs: Vital Signs - 12hr 01/20/19 01/20/19 01/20/19 21:00 21:15 21:30 Temperature Pulse Rate 81 90 85 Pulse Rate [ From Monitor] Respiratory 20 19 21 Rate Blood Pressure 110/55 113/54 123/59 O2 Sat by Pulse 93 93 Oximetry 01/20/19 01/20/19 01/20/19 21:45 22:00 22:15 Temperature Pulse Rate 108 H 87 109 H Pulse Rate [ From Monitor] Respiratory 21 18 21 Rate Blood Pressure 134/70 124/58 128/67 O2 Sat by Pulse 94 93 90 Oximetry 01/20/19 01/20/19 01/20/19 22:30 22:45 23:01 Temperature Pulse Rate 108 H 109 H 106 H Pulse Rate [ From Monitor] Respiratory 24 20 20 Rate Blood Pressure 127/72 131/69 113/60 O2 Sat by Pulse 88 90 91 Oximetry 01/20/19 01/20/19 01/20/19 23:15 23:30 23:45 Temperature Pulse Rate 83 81 105 H Pulse Rate [ From Monitor] Respiratory 21 18 21 Rate Blood Pressure 121/63 132/56 151/63 O2 Sat by Pulse 91 91 94 Oximetry 01/21/19 01/21/19 01/21/19 00:00 00:06 00:15 Temperature 102.6 F H Pulse Rate 105 H 89 83 Pulse Rate [ 85 From Monitor] Respiratory 21 21 Rate Blood Pressure 129/69 129/69 119/58 O2 Sat by Pulse 95 95 96 Oximetry 01/21/19 01/21/19 01/21/19 00:30 00:45 01:00 Temperature Pulse Rate 88 90 88 Pulse Rate [ From Monitor] Respiratory 21 23 22 Rate Blood Pressure 126/61 127/65 128/66 O2 Sat by Pulse 95 94 92 Oximetry 01/21/19 01/21/19 01/21/19 01:15 01:30 01:45 Temperature Pulse Rate 87 86 82 Pulse Rate [ From Monitor] Respiratory 22 20 19 Rate Blood Pressure 129/67 133/61 124/64 O2 Sat by Pulse 96 97 Oximetry 01/21/19 01/21/19 01/21/19 02:00 02:15 02:30 Temperature Pulse Rate 88 86 83 Pulse Rate [ From Monitor] Respiratory 19 18 19 Rate Blood Pressure 132/68 120/59 126/58 O2 Sat by Pulse 97 98 98 Oximetry 01/21/19 01/21/19 01/21/19 02:45 03:00 03:10 Temperature 102.9 F H Pulse Rate 79 82 Pulse Rate [ From Monitor] Respiratory 25 H 21 Rate Blood Pressure 126/58 121/61 O2 Sat by Pulse 97 96 Oximetry 01/21/19 01/21/19 01/21/19 03:15 03:30 03:45 Temperature Pulse Rate 84 89 82 Pulse Rate [ From Monitor] Respiratory 22 20 21 Rate Blood Pressure 127/66 124/65 129/58 O2 Sat by Pulse 97 82 L Oximetry 01/21/19 01/21/19 01/21/19 04:00 04:15 04:30 Temperature 101.8 F H Pulse Rate 84 83 85 Pulse Rate [ 86 From Monitor] Respiratory 20 18 18 Rate Blood Pressure 130/67 123/63 128/69 O2 Sat by Pulse 92 92 95 Oximetry 01/21/19 01/21/19 01/21/19 04:45 05:00 05:15 Temperature Pulse Rate 81 82 83 Pulse Rate [ From Monitor] Respiratory 18 18 18 Rate Blood Pressure 116/59 111/55 123/61 O2 Sat by Pulse 98 96 96 Oximetry 01/21/19 01/21/19 01/21/19 05:30 05:44 05:45 Temperature 100.8 F H Pulse Rate 85 85 Pulse Rate [ From Monitor] Respiratory 21 23 Rate Blood Pressure 130/65 118/62 O2 Sat by Pulse 96 98 Oximetry 01/21/19 01/21/19 01/21/19 06:00 06:15 07:49 Temperature Pulse Rate 85 85 88 Pulse Rate [ From Monitor] Respiratory 18 18 Rate Blood Pressure 128/68 116/63 127/64 O2 Sat by Pulse 97 97 98 Oximetry - Lab 01/21/19 02:45 01/21/19 02:45 Most recent lab results Calcium 9.1 mg/dL (8.4-10.2) 01/21/19 02:45 Phosphorus 5.90 mg/dL (2.5-4.5) H 01/20/19 Unknown Magnesium 1.90 mg/dL (1.7-2.3) 01/20/19 Unknown Urine Sodium 64 mmol/L 01/21/19 02:50 Medications & Allergies - Medications Allergies/Adverse Reactions: Allergies No Known Allergies Allergy (Verified 01/19/19 08:23) Home Medications: Home Medications Medication Instructions Recorded Confirmed Last Taken Type Baclofen [Lioresal] 5 mg PO TID 10/18/17 03/09/18 Unknown History Levothyroxine (Nf) [Synthroid (Nf)] 200 mcg NGTUBE QAM 10/18/17 03/09/18 Unknown History Liothyronine Sodium [Cytomel] 5 mcg NGTUBE QAM 10/18/17 03/09/18 10/30/17 History OXcarbazepine [Trileptal] 900 mg NGTUBE BID 10/18/17 03/09/18 Unknown History Valproic Acid (As Sodium Salt) 20 ml NGTUBE Q12H 10/18/17 03/09/18 Unknown History [Depakene] amLODIPine [Norvasc] 10 mg NGTUBE DAILY 10/18/17 03/09/18 Unknown History levETIRAcetam [Keppra TAB] 1,000 mg NGTUBE BID 10/18/17 03/09/18 Unknown History Insulin Aspart [NovoLOG Flexpen] See Protocol SQ Q6H 30 Days 10/26/17 03/09/18 Unknown Rx insuln.pen Insulin NPH/Regular [NovoLIN 70/30] 18 unit SQ BIDDIAB 30 Days ml 10/26/17 03/09/18 Unknown Rx hydrALAZINE [Apresoline TAB] 25 mg PO Q8HR #90 tablet 10/26/17 03/09/18 Unknown Rx Polyethylene Glycol 3350 [Miralax 17 gm PO BID #30 packet 11/10/17 03/09/18 Unknown Rx 3350] Sennosides/Docusate [Senokot S] 1 tab PO Q12HR #30 tablet 11/10/17 03/09/18 Unknown Rx cloNIDine-TTS PATCH [Catapres-Tts 0.3 mg TD QWEEK patch 03/12/18 Unknown Rx 0.3mg Patch] Active Medications: Generic Name Dose Route Start Last Admin Trade Name Freq PRN Reason Stop Dose Admin Acetaminophen 650 mg 01/21/19 02:23 01/21/19 03:59 Tylenol PO 650 mg Q6H PRN Administration Fever > 101 Dextrose 50 ml 01/19/19 16:42 01/20/19 17:58 D50w (25gm) Syringe IV 50 ml PRN PRN Administration Hypoglycemia Famotidine 20 mg 01/20/19 11:00 01/20/19 23:03 Pepcid IV 20 mg BID PRISCA Administration Hydrocortisone Sodium Succinate 150 mg 01/20/19 22:00 01/21/19 05:42 Solu-Cortef IV 150 mg Q8H PRISCA Administration Ceftriaxone Sodium 1 gm in 50 mls @ 100 mls/hr 01/19/19 16:00 01/20/19 15:58 Rocephin/Ns 1 Gm/50 Ml IV 01/28/19 16:29 100 mls/hr Q24H PRISCA Administration Protocol Dopamine HCl/Dextrose 800 mg in 250 mls @ 4.082 mls/hr 01/19/19 20:00 01/21/19 05:30 Intropin Drip 800 Mg/D5w 250 Ml IV 18 mcg/kg/min TITR PRISCA 36.741 mls/hr Titration Protocol 2 MCG/KG/MIN Epinephrine 8 mg/ Sodium 250 mls @ 3.75 mls/hr 01/20/19 09:00 01/21/19 04:30 Chloride IV 2 mcg/min TITR PRISCA 3.75 mls/hr Titration Protocol 2 MCG/MIN Sodium Bicarbonate 150 meq/ 1,150 mls @ 150 mls/hr 01/20/19 22:00 01/20/19 23:06 Dextrose IV 250 mls/hr DIRECT PRISCA Administration Insulin Human Lispro 0 unit 01/19/19 18:00 01/21/19 05:42 Humalog SUB-Q 2 unit Q6HR PRISCA Administration Protocol Levothyroxine Sodium 100 mcg 01/19/19 06:00 01/21/19 05:42 Synthroid IV 100 mcg DAILY@0600 PRISCA Administration
[2019-01-21] MEDS: PEPCID IV SCH ×2 (09:26→21:03)
--- NOTE | 2019-01-21 09:34 | Progress Note ---
Assessment and Plan Severe sepsis with shock probably secondary to UTI Bleeding from multiple orifices/Possible DIC on admission Hypoxemic respiratory failure Difficult airway,prior trach. See anesthesia,ED notes Symptomatic severe sinus bradycardia Severe hyponatremia Severe Hyperkalemia. See intervention by nephrology yesterday. 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 of 2 L PRBC if Hgb < 7 monitor for any bleeding Titrate PEEP up to maintain oximetry of the above oximetry level Set tidal Volume set initially at 6-8 cm PBW for MARLENI protection if possible Continue antibiotics and monitor cultures Sedation as needed for patient comfort, adjust to RASS -1 to - 3 DVT prophylaxis PPI prophylaxis Prognosis at this point appears to be grave, poor. Currently DO NOT RESUSCITATE CODE STATUS has been signed a record. We'll continue other suppo rtive measures for the moment No family available at this time for case discussion. Reviewed with staff in detail Critical care time was 45 minutes of [id number] evaluation and coordination of care Subjective Date of service: 01/21/19 Principal diagnosis: hypoxic/hypercarbic respiratory failure Interval history: Intubated and nonresponsive Objective Vital Signs - 12hr 01/20/19 01/20/19 01/20/19 21:45 22:00 22:15 Temperature Pulse Rate 108 H 87 109 H Pulse Rate [ From Monitor] Respiratory 21 18 21 Rate Blood Pressure 134/70 124/58 128/67 O2 Sat by Pulse 94 93 90 Oximetry 01/20/19 01/20/19 01/20/19 22:30 22:45 23:01 Temperature Pulse Rate 108 H 109 H 106 H Pulse Rate [ From Monitor] Respiratory 24 20 20 Rate Blood Pressure 127/72 131/69 113/60 O2 Sat by Pulse 88 90 91 Oximetry 01/20/19 01/20/19 01/20/19 23:15 23:30 23:45 Temperature Pulse Rate 83 81 105 H Pulse Rate [ From Monitor] Respiratory 21 18 21 Rate Blood Pressure 121/63 132/56 151/63 O2 Sat by Pulse 91 91 94 Oximetry 01/21/19 01/21/19 01/21/19 00:00 00:06 00:15 Temperature 102.6 F H Pulse Rate 105 H 89 83 Pulse Rate [ 85 From Monitor] Respiratory 21 21 Rate Blood Pressure 129/69 129/69 119/58 O2 Sat by Pulse 95 95 96 Oximetry 01/21/19 01/21/19 01/21/19 00:30 00:45 01:00 Temperature Pulse Rate 88 90 88 Pulse Rate [ From Monitor] Respiratory 21 23 22 Rate Blood Pressure 126/61 127/65 128/66 O2 Sat by Pulse 95 94 92 Oximetry 01/21/19 01/21/19 01/21/19 01:15 01:30 01:45 Temperature Pulse Rate 87 86 82 Pulse Rate [ From Monitor] Respiratory 22 20 19 Rate Blood Pressure 129/67 133/61 124/64 O2 Sat by Pulse 96 97 Oximetry 01/21/19 01/21/19 01/21/19 02:00 02:15 02:30 Temperature Pulse Rate 88 86 83 Pulse Rate [ From Monitor] Respiratory 18 19 Rate Blood Pressure 132/68 120/59 126/58 O2 Sat by Pulse 97 98 98 Oximetry 01/21/19 01/21/19 01/21/19 02:45 03:00 03:10 Temperature 102.9 F H Pulse Rate 79 82 Pulse Rate [ From Monitor] Respiratory 25 H 21 Rate Blood Pressure 126/58 121/61 O2 Sat by Pulse 97 96 Oximetry 01/21/19 01/21/19 01/21/19 03:15 03:30 03:45 Temperature Pulse Rate 84 89 82 Pulse Rate [ From Monitor] Respiratory 22 20 21 Rate Blood Pressure 127/66 124/65 129/58 O2 Sat by Pulse 97 82 L Oximetry 01/21/19 01/21/19 01/21/19 04:00 04:15 04:30 Temperature 101.8 F H Pulse Rate 84 83 85 Pulse Rate [ 86 From Monitor] Respiratory 20 18 18 Rate Blood Pressure 130/67 123/63 128/69 O2 Sat by Pulse 92 92 95 Oximetry 01/21/19 01/21/19 01/21/19 04:45 05:00 05:15 Temperature Pulse Rate 81 82 83 Pulse Rate [ From Monitor] Respiratory 18 18 18 Rate Blood Pressure 116/59 111/55 123/61 O2 Sat by Pulse 98 96 96 Oximetry 01/21/19 01/21/19 01/21/19 05:30 05:44 05:45 Temperature 100.8 F H Pulse Rate 85 85 Pulse Rate [ From Monitor] Respiratory 21 23 Rate Blood Pressure 130/65 118/62 O2 Sat by Pulse 96 98 Oximetry 01/21/19 01/21/19 01/21/19 06:00 06:15 07:49 Temperature Pulse Rate 85 85 88 Pulse Rate [ From Monitor] Respiratory 18 18 Rate Blood Pressure 128/68 116/63 127/64 O2 Sat by Pulse 97 97 98 Oximetry Constitutional: no acute distress, other (critically ill) Eyes: non-icteric Neck: no lymphadenopathy, no JVD, other (right IJ in place) Ascultation: Bilateral: diminished breath sounds, rales (sporadic) Cardiovascular: regular rate and rhythm Gastrointestinal: normoactive bowel sounds, other (distended) Extremities: other (right femoral line) Neurologic: unable to assess CBC and BMP: 01/21/19 02:45 01/21/19 02:45 ABG, PT/INR, D-dimer: ABG POC ABG pH 7.440 (7.35-7.45) 01/21/19 06:41 POC ABG pCO2 38.2 (35-45) 01/21/19 06:41 POC ABG pO2 77 (80-105) L 01/21/19 06:41 POC ABG HCO3 26.0 (22-26 mml/L) 01/21/19 06:41 POC ABG Total CO2 27 (23-27mmol/L) 01/21/19 06:41 POC ABG O2 Sat 96 01/21/19 06:41 PT/INR, D-dimer PT 15.1 Sec. (12.2-14.9) H 01/19/19 Unknown INR 1.12 (0.87-1.13) 01/19/19 Unknown Abnormal lab findings: Abnormal Labs 01/19/19 01/19/19 01/19/19 07:46 07:46 07:46 WBC RBC Hgb Hct MCV MCH RDW Plt Count Seg Neuts % (Manual) Lymphocytes % (Manual) Monocytes % (Manual) Nucleated RBC % Lymphocytes # (Manual) PT INR 0.86 L POC ABG pH POC ABG pCO2 POC ABG pO2 Sodium 114 L* Potassium 6.5 H* Chloride 77.4 L Carbon Dioxide BUN 33 H Creatinine Glucose 128 H POC Glucose Lactic Acid 2.50 H* Calcium Phosphorus Direct Bilirubin AST Total Creatine Kinase < 7 L Troponin T Total Protein Albumin TSH Urine WBC (Auto) 01/19/19 01/19/19 01/19/19 07:46 07:48 08:30 WBC 4.2 L RBC 3.07 L Hgb 10.1 L Hct 30.7 L MCV 100 H MCH 33 H RDW 17.4 H Plt Count Seg Neuts % (Manual) 72.0 H Lymphocytes % (Manual) 11.0 L Monocytes % (Manual) 13.0 H Nucleated RBC % 1.0 H Lymphocytes # (Manual) 0.5 L PT INR POC ABG pH POC ABG pCO2 POC ABG pO2 Sodium Potassium Chloride Carbon Dioxide BUN Creatinine Glucose POC Glucose Lactic Acid Calcium Phosphorus Direct Bilirubin AST Total Creatine Kinase Troponin T Total Protein Albumin TSH 8.530 H Urine WBC (Auto) > 182.0 H 01/19/19 01/19/19 01/19/19 10:24 10:24 10:24 WBC RBC Hgb Hct MCV MCH RDW Plt Count Seg Neuts % (Manual) Lymphocytes % (Manual) Monocytes % (Manual) Nucleated RBC % Lymphocytes # (Manual) PT INR POC ABG pH 7.305 L POC ABG pCO2 46.8 H POC ABG pO2 Sodium Potassium Chloride Carbon Dioxide BUN Creatinine Glucose POC Glucose Lactic Acid 3.20 H* Calcium Phosphorus Direct Bilirubin AST Total Creatine Kinase Troponin T 0.031 H D Total Protein Albumin TSH Urine WBC (Auto) 01/19/19 01/19/19 01/19/19 14:39 15:04 17:00 WBC RBC Hgb Hct MCV MCH RDW Plt Count Seg Neuts % (Manual) Lymphocytes % (Manual) Monocytes % (Manual) Nucleated RBC % Lymphocytes # (Manual) PT INR POC ABG pH 7.320 L POC ABG pCO2 POC ABG pO2 58 L Sodium 116 L* 123 L D Potassium 5.7 H Chloride 82.9 L 89.8 L Carbon Dioxide 17 L BUN 31 H 28 H Creatinine Glucose 129 H 135 H POC Glucose Lactic Acid Calcium 8.1 L Phosphorus 4.80 H Direct Bilirubin AST Total Creatine Kinase Troponin T Total Protein Albumin TSH Urine WBC (Auto) 0401/19/19 01/19/19 17:00 22:40 Unknown WBC RBC 3.05 L Hgb 10.0 L Hct 30.7 L MCV 101 H MCH 33 H RDW 16.7 H Plt Count Seg Neuts % (Manual) Lymphocytes % (Manual) Monocytes % (Manual) Nucleated RBC % Lymphocytes # (Manual) PT 15.1 H INR POC ABG pH POC ABG pCO2 POC ABG pO2 Sodium 121 L Potassium 5.2 H Chloride 86.9 L Carbon Dioxide BUN 30 H Creatinine Glucose POC Glucose Lactic Acid Calcium Phosphorus 5.20 H Direct Bilirubin AST Total Creatine Kinase Troponin T Total Protein Albumin TSH Urine WBC (Auto) 01/20/19 01/20/19 01/20/19 04:20 16:00 17:39 WBC RBC Hgb Hct MCV MCH RDW Plt Count Seg Neuts % (Manual) Lymphocytes % (Manual) Monocytes % (Manual) Nucleated RBC % Lymphocytes # (Manual) PT INR POC ABG pH POC ABG pCO2 POC ABG pO2 Sodium 120 L 119 L* Potassium 5.9 H 7.0 H* Chloride 87.0 L 85.7 L Carbon Dioxide 20 L 18 L BUN 31 H 35 H Creatinine 1.9 H Glucose 120 H POC Glucose 40 L Lactic Acid Calcium 8.1 L 8.0 L Phosphorus 5.10 H 5.80 H Direct Bilirubin AST Total Creatine Kinase Troponin T Total Protein Albumin TSH Urine WBC (Auto) 01/20/19 01/20/19 01/21/19 22:33 Unknown 00:18 WBC RBC Hgb Hct MCV MCH RDW Plt Count Seg Neuts % (Manual) Lymphocytes % (Manual) Monocytes % (Manual) Nucleated RBC % Lymphocytes # (Manual) PT INR POC ABG pH POC ABG pCO2 POC ABG pO2 Sodium 125 L D 120 L Potassium 6.2 H* 6.2 H* Chloride 87.3 L 85.8 L Carbon Dioxide 17 L BUN 37 H 33 H Creatinine 1.9 H 1.6 H Glucose 71 L POC Glucose 152 H Lactic Acid Calcium 8.1 L Phosphorus 5.90 H Direct Bilirubin AST Total Creatine Kinase Troponin T Total Protein Albumin TSH Urine WBC (Auto) 01/21/19 01/21/19 01/21/19 02:45 02:45 02:45 WBC 18.8 H RBC 2.36 L Hgb 7.6 L Hct 25.1 L MCV 99 H MCH RDW 16.4 H Plt Count 97 L Seg Neuts % (Manual) 29.0 L Lymphocytes % (Manual) 4.0 L Monocytes % (Manual) Nucleated RBC % 5.0 H Lymphocytes # (Manual) 0.8 L PT INR POC ABG pH POC ABG pCO2 POC ABG pO2 Sodium 125 L Potassium 5.8 H Chloride 86.9 L Carbon Dioxide BUN 35 H Creatinine 1.9 H Glucose 119 H POC Glucose Lactic Acid Calcium Phosphorus Direct Bilirubin 0.3 H AST 59 H Total Creatine Kinase Troponin T Total Protein 5.7 L Albumin 3.1 L TSH Urine WBC (Auto) 01/21/19 01/21/19 01/21/19 05:26 05:42 06:41 WBC RBC Hgb Hct MCV MCH RDW Plt Count Seg Neuts % (Manual) Lymphocytes % (Manual) Monocytes % (Manual) Nucleated RBC % Lymphocytes # (Manual) PT INR POC ABG pH 7.274 L POC ABG pCO2 58.6 H POC ABG pO2 77 L Sodium Potassium Chloride Carbon Dioxide BUN Creatinine Glucose POC Glucose 182 H Lactic Acid Calcium Phosphorus Direct Bilirubin AST Total Creatine Kinase Troponin T Total Protein Albumin TSH Urine WBC (Auto)
[2019-01-21] MEDS ORDERED: NACL 0.9% 500 ML 500 ML IV ONE (11:00)
--- NOTE | 2019-01-21 11:05 | Ultrasound Report ---
ULTRASOUND RENAL BILATERAL HISTORY: Acute renal failure. TECHNIQUE: transabdominal ultrasound with color Doppler interrogation. COMPARISON: CT abdomen pelvis with contrast dated 10/30/17. FINDINGS: The right kidney measures 10.2 x 4.7 x 5.8cm. Right renal cortex: 1.2cm. The left kidney measures 10.2 x 5.8 x 7.3cm. Left renal cortex: 1.6cm. The kidneys are normal size, contour and position. There is increased renal cortical echotexture bilaterally consistent with nonspecific renal parenchymal disease. Corticomedullary differentiation is preserved. A bilobed cyst with a single internal septation or 2 adjacent cysts in the mid left kidney measures 6.3 x 4.5 cm which is not significantly changed since the previous CT. No evidence for mass, nephrolithiasis, hydronephrosis or perinephric fluid. The bladder is decompressed and contains a Barnes catheter. IMPRESSION: Nonspecific renal parenchymal disease. Slightly complex left renal cyst which is grossly unchanged since CT dated 10/30/17.
--- NOTE | 2019-01-21 11:38 | Progress Note ---
Assessment and Plan Continue current cardiac management. Will continue to downtitrate epi and dopa as tolerated. Nephrology managing hyperkalemia and renal failure. Patient has been seen in conjunction with Dr. Mike, who agrees with assessment and plan. - Patient Problems (1) Altered mental status Current Visit: Yes Status: Acute (2) Dehydration Current Visit: Yes Status: Acute (3) Hyperkalemia Current Visit: Yes Status: Acute (4) Hyponatremia Current Visit: Yes Status: Acute (5) Hypotension Current Visit: Yes Status: Acute (6) Sepsis Current Visit: Yes Status: Acute (7) Hypothyroidism Current Visit: No Status: Chronic (8) History of CVA (cerebrovascular accident) Current Visit: Yes Status: Acute (9) Chronic ulcer of sacral region Current Visit: Yes Status: Acute (10) Dysphagia Current Visit: No Status: Acute (11) UTI (urinary tract infection) Current Visit: No Status: Acute Subjective Date of service: 01/21/19 Principal diagnosis: hypoxic/hypercarbic respiratory failure Interval history: Patient intubated and sedated. Objective Last Vital Signs Temp 100.8 F H 01/21/19 05:44 Pulse 95 H 01/21/19 11:15 Resp 21 01/21/19 11:15 BP 140/72 01/21/19 11:15 Pulse Ox 98 01/21/19 11:15 - Physical Examination Narrative exam: Patient intubated and sedated. Withdraws from pain. Currently attempting to downtitrate epi and dopa. He remains in sinus rhythm. Potassium still elevated at 5.8 this morning. HEENT: Positive: Normocephaly Neck: Positive: neck supple, trachea midline Cardiac: Positive: Reg Rate and Rhythm Lungs: Positive: Ventilated Respirations Neuro: Positive: Other (Withdraws from pain) Abdomen: Positive: Soft, Active Bowel Sounds, Distended. Negative: Tender Skin: Positive: Clear, Wound (open wound to left foot. ). Negative: Rash Musculoskeletal: No Fluid Collection Extremities: Present: edema (trace nonpitting bilateral edema) - Labs and Meds Cardiac Enzymes 01/21/19 Range/Units 02:45 AST 59 H (5-40) units/L CBC 01/21/19 Range/Units 02:45 WBC 18.8 H (4.5-11.0) K/mm3 RBC 2.36 L (3.65-5.03) M/mm3 Hgb 7.6 L (11.8-15.2) gm/dl Hct 25.1 L (35.5-45.6) % Plt Count 97 L (140-440) K/mm3 Comprehensive Metabolic Panel 01/20/19 01/20/19 01/20/19 Range/Units 16:00 22:33 Unknown Sodium 119 L* 125 L D 120 L (137-145) mmol/L Potassium 7.0 H* 6.2 H* 6.2 H* (3.6-5.0) mmol/L Chloride 85.7 L 87.3 L 85.8 L (98-107) mmol/L Carbon Dioxide 18 L 24 17 L (22-30) mmol/L BUN 35 H 37 H 33 H (9-20) mg/dL Creatinine 1.9 H 1.9 H 1.6 H (0.8-1.5) mg/dL Glucose 120 H 90 71 L (75-100) mg/dL Calcium 8.0 L 9.2 8.1 L (8.4-10.2) mg/dL Direct Bilirubin (0-0.2) mg/dL Indirect Bilirubin mg/dL AST (5-40) units/L ALT (7-56) units/L Alkaline Phosphatase (35-129) units/L Total Protein (6.3-8.2) g/dL Albumin (3.9-5) g/dL 01/21/19 01/21/19 Range/Units 02:45 02:45 Sodium 125 L (137-145) mmol/L Potassium 5.8 H (3.6-5.0) mmol/L Chloride 86.9 L (98-107) mmol/L Carbon Dioxide 25 (22-30) mmol/L BUN 35 H (9-20) mg/dL Creatinine 1.9 H (0.8-1.5) mg/dL Glucose 119 H (75-100) mg/dL Calcium 9.1 (8.4-10.2) mg/dL Direct Bilirubin 0.3 H (0-0.2) mg/dL Indirect Bilirubin 0.1 mg/dL AST 59 H (5-40) units/L ALT 28 (7-56) units/L Alkaline Phosphatase 91 (35-129) units/L Total Protein 5.7 L (6.3-8.2) g/dL Albumin 3.1 L (3.9-5) g/dL - Imaging and Cardiology EKG: image reviewed - Telemetry EKG Rhythm: Sinus Rhythm AV and intraventricular conduction: intraventricular conducti
--- NOTE | 2019-01-21 12:07 | Progress Note ---
Assessment and Plan Assessment and plan: Severe sepsis with shock -likely secondary to Klebsiella UTI -On IV antibiotic and dopamine drip -Urine culture positive for Klebsiella pneumoniae. -Blood cultures 1 out of 2 bottles positive for gram positive cocci -ID consulted. Bleeding from multiple orifices/Possible DIC -will monitor H/H and coagulation profile -Condition guarded with poor prognosis Acute hypoxic and hypercapnic respiratory failure -Status post intubation on mechanical ventilator -Pulmonology following Symptomatic severe sinus bradycardia -Status post multiple doses of atropine -HR improving on epinephrine drip -Cardiology following Severe hyponatremia -Level improving, will monitor -Nephrology following ASHOK, probably vasomotor nephropathy -Creatinine level trending up, will monitor level -Renal ultrasound negative for hydronephrosis -Nephrology following Recurrent Hyperkalemia -We'll continue treatment and monitor potassium level -Nephrology following Acute on chronic metabolic encephalopathy -Likely due to the acute process -Head CT scan pending Anemia of acute loss -IU PRBC ordered, will monitor H/H DM2 -Blood glucose currently stable Hypothyroidism -TSH level elevated but free T4 normal -On a stress dose IV steroid and IV Synthroid by pulmonology 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 Patient is DO NOT RESUSCITATE only. Continue tx in the ICU. History Interval history: Patient is intubated. No significant change since admission. Patient had fever of 101.2 Fahrenheit this a.m. Hospitalist Physical - Constitutional Vitals: Temp Pulse Resp BP Pulse Ox 101.2 F H 95 H 21 140/72 98 01/21/19 08:00 01/21/19 11:15 01/21/19 11:15 01/21/19 11:15 01/21/19 11:15 General appearance: Present: no acute distress - EENT Eyes: Present: discharge ENT: other (patient is intubated) - Neck Neck: Present: supple - Respiratory Respiratory effort: normal Respiratory: bilateral: rales - Cardiovascular Rhythm: regular Heart Sounds: Present: S1 & S2 - Extremities Extremity abnormal: edema (in bilateral upper and lower extremities) - Abdominal General gastrointestinal: distended, normal bowel sounds (firm on palpation. PEG tube noted.) - Integumentary Integumentary: Present: erythema (sacral decubitus ulcers) - Neurologic Neurologic: other (pt is unresponsive) Results - Labs CBC & Chem 7: 01/21/19 02:45 01/21/19 02:45 Labs: Laboratory Last Values WBC 18.8 K/mm3 (4.5-11.0) H 01/21/19 02:45 RBC 2.36 M/mm3 (3.65-5.03) L 01/21/19 02:45 Hgb 7.6 gm/dl (11.8-15.2) L 01/21/19 02:45 Hct 25.1 % (35.5-45.6) L 01/21/19 02:45 MCV 99 fl (84-94) H 01/21/19 02:45 MCH 32 pg (28-32) 01/21/19 02:45 MCHC 32 % (32-34) 01/21/19 02:45 RDW 16.4 % (13.2-15.2) H 01/21/19 02:45 Plt Count 97 K/mm3 (140-440) L 01/21/19 02:45 Lymph % (Auto) Community Specialist 01/19/19 07:48 [place] % (Auto) Community Specialist 01/19/19 07:48 Eos % (Auto) Community Specialist 01/19/19 07:48 Baso % (Auto) Community Specialist 01/19/19 07:48 Lymph # Community Specialist 01/19/19 07:48 [place] # Community Specialist 01/19/19 07:48 Eos # Community Specialist 01/19/19 07:48 Baso # Community Specialist 01/19/19 07:48 Add Manual Diff Complete 01/21/19 02:45 Total Counted 100 01/21/19 02:45 Seg Neutrophils % Community Specialist 01/21/19 02:45 Seg Neuts % (Manual) 29.0 % (40.0-70.0) L 01/21/19 02:45 Band Neutrophils % 59.0 % 01/21/19 02:45 Lymphocytes % (Manual) 4.0 % (13.4-35.0) L 01/21/19 02:45 Reactive Lymphs % (Man) 0 % 01/21/19 02:45 Monocytes % (Manual) 4.0 % (0.0-7.3) 01/21/19 02:45 Eosinophils % (Manual) 0 % (0.0-4.3) 01/21/19 02:45 Basophils % (Manual) 0 % (0.0-1.8) 01/21/19 02:45 Metamyelocytes % 4.0 % 01/21/19 02:45 Myelocytes % 0 % 01/21/19 02:45 Promyelocytes % 0 % 01/21/19 02:45 Blast Cells % 0 % 01/21/19 02:45 Nucleated RBC % 5.0 % (0.0-0.9) H 01/21/19 02:45 Seg Neutrophils # Community Specialist 01/19/19 07:48 Seg Neutrophils # Man 5.5 K/mm3 (1.8-7.7) 01/21/19 02:45 Band Neutrophils # 11.1 K/mm3 01/21/19 02:45 Lymphocytes # (Manual) 0.8 K/mm3 (1.2-5.4) L 01/21/19 02:45 Abs React Lymphs (Man) 0.0 K/mm3 01/21/19 02:45 Monocytes # (Manual) 0.8 K/mm3 (0.0-0.8) 01/21/19 02:45 Eosinophils # (Manual) 0.0 K/mm3 (0.0-0.4) 01/21/19 02:45 Basophils # (Manual) 0.0 K/mm3 (0.0-0.1) 01/21/19 02:45 Metamyelocytes # 0.8 K/mm3 01/21/19 02:45 Myelocytes # 0.0 K/mm3 01/21/19 02:45 Promyelocytes # 0.0 K/mm3 01/21/19 02:45 Blast Cells # 0.0 K/mm3 01/21/19 02:45 WBC Morphology Not Reportable 01/21/19 02:45 Hypersegmented Neuts Not Reportable 01/21/19 02:45 Hyposegmented Neuts Not Reportable 01/21/19 02:45 Hypogranular Neuts Not Reportable 01/21/19 02:45 Smudge Cells Not Reportable 01/21/19 02:45 Toxic Granulation Not Reportable 01/21/19 02:45 Toxic Vacuolation Not Reportable 01/21/19 02:45 Dohle Bodies Few 01/21/19 02:45 Pelger-Huet Anomaly Not Reportable 01/21/19 02:45 Kaitlyn Rods Not Reportable 01/21/19 02:45 Platelet Estimate Appears decreased 01/21/19 02:45 Clumped Platelets Not Reportable 01/21/19 02:45 Plt Clumps, EDTA Not Reportable 01/21/19 02:45 Large Platelets Few 01/21/19 02:45 Giant Platelets Not Reportable 01/21/19 02:45 Platelet Satelliting Not Reportable 01/21/19 02:45 Plt Morphology Comment Not Reportable 01/21/19 02:45 RBC Morphology Not Reportable 01/21/19 02:45 Dimorphic RBCs Not Reportable 01/21/19 02:45 Polychromasia Not Reportable 01/21/19 02:45 Hypochromasia Not Reportable 01/21/19 02:45 Poikilocytosis Not Reportable 01/21/19 02:45 Anisocytosis 1+ 01/21/19 02:45 Microcytosis Not Reportable 01/21/19 02:45 Macrocytosis Not Reportable 01/21/19 02:45 Spherocytes Not Reportable 01/21/19 02:45 Pappenheimer Bodies Not Reportable 01/21/19 02:45 Sickle Cells Not Reportable 01/21/19 02:45 Target Cells 2+ 01/21/19 02:45 Tear Drop Cells Not Reportable 01/21/19 02:45 Ovalocytes Not Reportable 01/21/19 02:45 Helmet Cells Not Reportable 01/21/19 02:45 [place]y Bodies Not Reportable 01/21/19 02:45 [place] Rings Not Reportable 01/21/19 02:45 [place] Cells Not Reportable 01/21/19 02:45 Bite Cells Not Reportable 01/21/19 02:45 Crenated Cell Not Reportable 01/21/19 02:45 Elliptocytes Not Reportable 01/21/19 02:45 Acanthocytes (Spur) Not Reportable 01/21/19 02:45 Rouleaux Not Reportable 01/21/19 02:45 Hemoglobin C Crystals Not Reportable 01/21/19 02:45 Schistocytes Not Reportable 01/21/19 02:45 Malaria parasites Not Reportable 01/21/19 02:45 Dionisio Bodies Not Reportable 01/21/19 02:45 Hem Pathologist Commnt No 01/21/19 02:45 PT 15.1 Sec. (12.2-14.9) H 01/19/19 Unknown INR 1.12 (0.87-1.13) 01/19/19 Unknown APTT 33.5 Sec. (24.2-36.6) 01/19/19 Unknown POC ABG pH 7.440 (7.35-7.45) 01/21/19 06:41 POC ABG pCO2 38.2 (35-45) 01/21/19 06:41 POC ABG pO2 77 (80-105) L 01/21/19 06:41 POC ABG HCO3 26.0 (22-26 mml/L) 01/21/19 06:41 POC ABG Total CO2 27 (23-27mmol/L) 01/21/19 06:41 POC ABG O2 Sat 96 01/21/19 06:41 POC ABG Base Excess 2 ((-2) - (+3)mmol/L) 01/21/19 06:41 FiO2 100 % 01/21/19 06:41 Sodium 125 mmol/L (137-145) L 01/21/19 02:45 Potassium 5.8 mmol/L (3.6-5.0) H 01/21/19 02:45 Chloride 86.9 mmol/L (98-107) L 01/21/19 02:45 Carbon Dioxide 25 mmol/L (22-30) 01/21/19 02:45 Anion Gap 19 mmol/L 01/21/19 02:45 BUN 35 mg/dL (9-20) H 01/21/19 02:45 Creatinine 1.9 mg/dL (0.8-1.5) H 01/21/19 02:45 Estimated GFR 43 ml/min 01/21/19 02:45 BUN/Creatinine Ratio 18 % 01/21/19 02:45 Glucose 119 mg/dL (75-100) H 01/21/19 02:45 POC Glucose 182 (70-105) H 01/21/19 05:26 Osmolality 268 Mosm/kg 01/20/19 17:52 Lactic Acid 3.20 mmol/L (0.7-2.0) H* 01/19/19 10:24 Uric Acid 5.3 mg/dL (3.5-7.6) 01/20/19 17:52 Calcium 9.1 mg/dL (8.4-10.2) 01/21/19 02:45 Phosphorus 5.90 mg/dL (2.5-4.5) H 01/20/19 Unknown Magnesium 1.90 mg/dL (1.7-2.3) 01/20/19 Unknown Total Bilirubin 0.40 mg/dL (0.1-1.2) 01/21/19 02:45 Direct Bilirubin 0.3 mg/dL (0-0.2) H 01/21/19 02:45 Indirect Bilirubin 0.1 mg/dL 01/21/19 02:45 AST 59 units/L (5-40) H 01/21/19 02:45 ALT 28 units/L (7-56) 01/21/19 02:45 Alkaline Phosphatase 91 units/L (35-129) 01/21/19 02:45 Ammonia 34.0 umol/L (25-60) 01/19/19 07:48 Total Creatine Kinase < 7 units/L (55-170) L 01/19/19 07:46 Troponin T 0.031 ng/mL (0.00-0.029) H D 01/19/19 10:24 Total Protein 5.7 g/dL (6.3-8.2) L 01/21/19 02:45 Albumin 3.1 g/dL (3.9-5) L 01/21/19 02:45 Albumin/Globulin Ratio 1.2 % 01/21/19 02:45 Triglycerides 78 mg/dL (2-149) 01/19/19 10:24 Cholesterol 130 mg/dL (50-199) 01/19/19 10:24 LDL Cholesterol Direct 71 mg/dL (50-130) 01/19/19 10:24 HDL Cholesterol 53 mg/dL (40-59) 01/19/19 10:24 Cholesterol/HDL Ratio 2.45 % 01/19/19 10:24 TSH 8.530 mlU/mL (0.270-4.200) H 01/19/19 07:46 Free T4 0.92 ng/dL (0.76-1.46) 01/19/19 14:39 Urine Color Yellow (Yellow) 01/19/19 08:30 Urine Turbidity Turbid (Clear) 01/19/19 08:30 Urine pH 5.0 (5.0-7.0) 01/19/19 08:30 Ur Specific [place] 1.020 (1.003-1.030) 01/19/19 08:30 Urine Protein 100 mg/dl mg/dL (Negative) 01/19/19 08:30 Urine Glucose (UA) Neg mg/dL (Negative) 01/19/19 08:30 Urine Ketones Neg mg/dL (Negative) 01/19/19 08:30 Urine Blood Sm (Negative) 01/19/19 08:30 Urine Nitrite Neg (Negative) 01/19/19 08:30 Urine Bilirubin Sm (Negative) 01/19/19 08:30 Urine Ictotest Negative (Negative) 01/19/19 08:30 Urine Urobilinogen < 2.0 mg/dL (<2.0) 01/19/19 08:30 Ur Leukocyte Esterase Mod (Negative) 01/19/19 08:30 Urine WBC (Auto) > 182.0 /HPF (0.0-6.0) H 01/19/19 08:30 Urine RBC (Auto) 134.0 /HPF (0.0-6.0) 01/19/19 08:30 Urine Bacteria (Auto) 4+ /HPF (Negative) 01/19/19 08:30 Urine WBC Clumps 3+ /HPF 01/19/19 08:30 Ur Transition Epith Cell 6 /HPF 01/19/19 08:30 Amorphous Crystals 2+ 01/19/19 08:30 Urine Osmolality 225 Mosm/kg 01/21/19 02:50 Urine Sodium 64 mmol/L 01/21/19 02:50 Urine Potassium 31.83 mmol/L 01/21/19 02:50 Active Medications - Current Medications Current Medications: Generic Name Dose Route Start Last Admin Trade Name Freq PRN Reason Stop Dose Admin Acetaminophen 650 mg 01/21/19 02:23 01/21/19 03:59 Tylenol PO 650 mg Q6H PRN Administration Fever > 101 Dextrose 50 ml 01/19/19 16:42 01/20/19 17:58 D50w (25gm) Syringe IV 50 ml PRN PRN Administration Hypoglycemia Famotidine 20 mg 01/20/19 11:00 01/21/19 09:26 Pepcid IV 20 mg BID PRISCA Administration Hydrocortisone Sodium Succinate 150 mg 01/20/19 22:00 01/21/19 05:42 Solu-Cortef IV 150 mg Q8H PRISCA Administration Ceftriaxone Sodium 1 gm in 50 mls @ 100 mls/hr 01/19/19 16:00 01/20/19 15:58 Rocephin/Ns 1 Gm/50 Ml IV 01/28/19 16:29 100 mls/hr Q24H PRISCA Administration Protocol Dopamine HCl/Dextrose 800 mg in 250 mls @ 4.082 mls/hr 01/19/19 20:00 01/21/19 05:30 Intropin Drip 800 Mg/D5w 250 Ml IV 18 mcg/kg/min TITR PRISCA 36.741 mls/hr Titration Protocol 2 MCG/KG/MIN Epinephrine 8 mg/ Sodium 250 mls @ 3.75 mls/hr 01/20/19 09:00 01/21/19 04:30 Chloride IV 2 mcg/min TITR PRISCA 3.75 mls/hr Titration Protocol 2 MCG/MIN Insulin Human Lispro 0 unit 01/19/19 18:00 01/21/19 05:42 Humalog SUB-Q 2 unit Q6HR PRISCA Administration Protocol Levothyroxine Sodium 100 mcg 01/19/19 06:00 01/21/19 05:42 Synthroid IV 100 mcg DAILY@0600 PRISCA Administration Nutrition/Malnutrition Assess - Dietary Evaluation Nutrition/Malnutrition Findings: Nutrition Notes Start: 01/20/19 12:26 Freq: Status: Active Protocol: Document 01/21/19 11:14 EB (Rec: 01/21/19 11:31 EB [id number]) Co-Sign 01/21/19 11:14 LP Nutrition Notes Initial or Follow up Reassessment Current Diagnosis Decubitus(Pressure Ulcer), Diabetes,Sepsis,Hypertension, Stroke,Hyperlipidemia Other Pertinent Diagnosis AMS, Bradycardia Current Diet No diet ordered Labs/Tests Na 125 K 5.8 BUN 35 Phos 5.9 Pertinent Medications Dopamine gtt, Epinephrine gtt, SoluCortef Height 5 ft 11 in Weight 104.4 kg [place] Body Weight (kg) 78.18 BMI 32.1 Weight Status Obese Subjective/Other Information RD consulted for Malnutrition. Awaiting TF consult until pt becomes more stable. Pt continues on vent support. NFPE revealed +1 pitting edema , slight temporal wasting, and confirmation fo PU on left foot. No other signs of muscle or fat wasting upon physical examination. Percent of energy/protein needs met: 0%/0% Burn Absent Trauma Absent Current % PO Negligible Minimum of two criteria Yes Muscle Mass Mild Depletion (non-severe) Fluid Accumulation Mild (non-severe) #2 Nutrition Diagnosis Malnutrition Etiology physiological causes resulting in diminished intake As Evidenced by Signs and Symptoms slight temporal wasting, +1 pitting bilateral LE edema, and PU on left foot #1 Nutrition Diagnosis Inadequate oral intake Etiology mech ventilation As Evidenced by Signs and Symptoms pt NPO Diagnosis Progress(for reassessment Continues documentation) Is patient on ventilator? Yes Is Patient Ambulatory and/or Out of Bed No REE-([facility]-confined to bed) 2226.336 Kcal/Kg value to use for calculation 17 Approximate Energy Requirements Using 1775 kcal/Kg Calculation Used for Recommendations Kcal/kg Additional Notes Pro needs 2g/kgIBW: 156g/day Fluid needs 1ml/kcal Nutrition Intervention Nutrition Support: Start EN support when medically feasible Goal #1 Start EN support to meet nutrient needs Anticipated Discharge Needs: Continue EN support Follow-Up By: 01/24/19 Additional Comments F/U: TF consult, vent status
[2019-01-21] MEDS ORDERED: NACL 0.9% 500 ML 500 ML ONE (14:15)
[2019-01-21] MEDS ORDERED: CALCIUM CHLORIDE IVP ONE (14:59)
[2019-01-21] MEDS: ROCEPHIN/NS 1 GM/50 ML 1 GM/50 ML BAG IV SCH (15:46)
[2019-01-21] MEDS ORDERED: LASIX IV ONE (16:00)
[2019-01-21] MEDS ORDERED: ALBURX 25% (ALBUMIN) IV ONE (16:00)
[2019-01-21] MEDS ORDERED: D50W (25GM) Syringe IV ONE (16:00)
[2019-01-21] MEDS ORDERED: HumuLIN R IV ONE (16:00)
[2019-01-21] MEDS ORDERED: CALCIUM CHLORIDE 1,000 MG in NACL 0.9% 100 ML IV ONE (16:00)
[2019-01-21] MEDS ORDERED: NACL 0.9% IV ONE (16:00)
[2019-01-21] MEDS: D50W (25GM) Syringe IV PRN (16:53)
[2019-01-21 20:28] LABS: Calcium 9.4 mg/dL (8.4-10.2)
[2019-01-22] MEDS: HumaLOG SUB-Q SCH ×4 (01:16→18:31)
[2019-01-22 05:08] LABS: Hematocrit 22.7 % (35.5-45.6); Hemoglobin 7.5 gm/dl (11.8-15.2); Mean Corpuscular HGB Conc 33 % (32-34); Mean Corpuscular Volume 97 fl (84-94); Red Blood Count 2.34 M/mm3 (3.65-5.03)
[2019-01-22] MEDS: SYNTHROID IV SCH (06:07)
[2019-01-22 06:26] LABS: Total Cells Counted 100
[2019-01-22 06:27] LABS: Band Neutrophils # (Manual) 5.2 K/mm3; Basophils % (Manual) 0 % (0.0-1.8); Eosinophils % (Manual) 0 % (0.0-4.3)
[2019-01-22 06:31] LABS: Dohle Bodies 1+; Large Platelets 1+
[2019-01-22 06:32] LABS: Anisocytosis 1+; Target Cells Few
[2019-01-22 06:33] LABS: Platelet Estimate Consistent w Auto
[2019-01-22 06:34] LABS: Platelet Count 36 K/mm3 (140-440)
[2019-01-22 06:43] LABS: BUN/Creatinine Ratio 21; Blood Urea Nitrogen 30 mg/dL (9-20); Calcium 8.6 mg/dL (8.4-10.2); Hemolysis Index 10
--- NOTE | 2019-01-22 07:45 | Progress Note ---
Assessment and Plan Severe sepsis with shock probably secondary to UTI Bleeding from multiple orifices/Possible DIC on admission Hypoxemic respiratory failure Difficult airway,prior trach. See anesthesia,ED notes Symptomatic severe sinus bradycardia.Stabilized Severe hyponatremia Severe Hyperkalemia. See intervention by nephrology yesterday. 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 Currently DO NOT RESUSCITATE CODE STATUS has been signed a record. We'll continue other supportive measures for the moment No family available at this time for case discussion. Reviewed with staff in detail Critical care time was 31 minutes of [id number] evaluation and coordination of care Subjective Date of service: 01/22/19 Principal diagnosis: hypoxic/hypercarbic respiratory failure Interval history: Intubated and nonresponsive Objective Vital Signs - 12hr 01/21/19 01/21/19 01/21/19 19:45 20:00 20:15 Temperature 98.7 F Pulse Rate 107 H 109 H 111 H Pulse Rate [ 108 H From Monitor] Respiratory 18 18 18 Rate Blood Pressure 129/81 132/68 122/65 O2 Sat by Pulse 94 90 88 Oximetry 01/21/19 01/21/19 01/21/19 20:30 20:45 21:00 Temperature Pulse Rate 114 H 118 H 114 H Pulse Rate [ From Monitor] Respiratory 18 18 18 Rate Blood Pressure 139/84 134/82 134/78 O2 Sat by Pulse 87 88 87 Oximetry 01/21/19 01/21/19 01/21/19 21:01 21:15 21:30 Temperature Pulse Rate 111 H 122 H 90 Pulse Rate [ From Monitor] Respiratory 18 18 18 Rate Blood Pressure 134/78 130/78 129/63 O2 Sat by Pulse 88 90 89 Oximetry 01/21/19 01/21/19 01/21/19 21:45 22:00 22:15 Temperature Pulse Rate 111 H 93 H 109 H Pulse Rate [ From Monitor] Respiratory 18 18 18 Rate Blood Pressure 121/71 129/68 120/75 O2 Sat by Pulse 89 90 90 Oximetry 01/21/19 01/21/19 01/21/19 22:30 22:45 23:00 Temperature Pulse Rate 111 H 105 H 97 H Pulse Rate [ From Monitor] Respiratory 21 18 22 Rate Blood Pressure 132/76 123/70 121/64 O2 Sat by Pulse 89 89 90 Oximetry 01/21/19 01/21/19 01/21/19 23:11 23:15 23:30 Temperature Pulse Rate 103 H 109 H 97 H Pulse Rate [ From Monitor] Respiratory 27 H 19 Rate Blood Pressure 121/64 116/68 112/63 O2 Sat by Pulse 93 89 90 Oximetry 01/21/19 01/22/19 01/22/19 23:45 00:00 00:15 Temperature 98.6 F Pulse Rate 105 H 99 H 102 H Pulse Rate [ 105 H From Monitor] Respiratory 13 18 18 Rate Blood Pressure 115/63 98/50 112/63 O2 Sat by Pulse 90 90 86 Oximetry 01/22/19 01/22/19 01/22/19 00:30 00:45 01:00 Temperature Pulse Rate 106 H 113 H 94 H Pulse Rate [ From Monitor] Respiratory 18 18 18 Rate Blood Pressure 144/86 136/78 130/76 O2 Sat by Pulse 92 91 92 Oximetry 01/22/19 01/22/19 01/22/19 01:15 01:30 01:45 Temperature Pulse Rate 95 H 100 H 98 H Pulse Rate [ From Monitor] Respiratory 18 18 18 Rate Blood Pressure 133/71 136/74 128/77 O2 Sat by Pulse 92 92 93 Oximetry 01/22/19 01/22/19 01/22/19 02:00 02:15 02:31 Temperature Pulse Rate 109 H 98 H 94 H Pulse Rate [ From Monitor] Respiratory 18 18 14 Rate Blood Pressure 124/70 137/71 84/44 O2 Sat by Pulse 92 91 91 Oximetry 01/22/19 01/22/19 01/22/19 02:45 03:00 03:15 Temperature Pulse Rate 92 H 99 H 94 H Pulse Rate [ From Monitor] Respiratory 18 17 17 Rate Blood Pressure 140/66 133/62 141/66 O2 Sat by Pulse 93 93 93 Oximetry 01/22/19 01/22/19 01/22/19 03:31 03:45 04:00 Temperature 98.9 F Pulse Rate Pulse Rate [ 98 H From Monitor] Respiratory 18 Rate Blood Pressure 114/65 114/65 O2 Sat by Pulse 90 87 94 Oximetry 01/22/19 01/22/19 01/22/19 04:01 04:15 04:30 Temperature Pulse Rate 111 H 93 H 85 Pulse Rate [ From Monitor] Respiratory 18 17 18 Rate Blood Pressure 144/72 144/72 112/64 O2 Sat by Pulse 91 94 93 Oximetry 01/22/19 01/22/19 01/22/19 04:45 05:00 05:15 Temperature Pulse Rate 90 84 87 Pulse Rate [ From Monitor] Respiratory 18 18 18 Rate Blood Pressure 120/60 117/63 121/71 O2 Sat by Pulse 91 95 95 Oximetry 01/22/19 01/22/19 01/22/19 05:30 05:45 06:01 Temperature Pulse Rate 76 85 83 Pulse Rate [ From Monitor] Respiratory 18 18 18 Rate Blood Pressure 122/69 135/67 125/75 O2 Sat by Pulse 93 94 94 Oximetry 01/22/19 06:15 Temperature Pulse Rate 100 H Pulse Rate [ From Monitor] Respiratory 17 Rate Blood Pressure 137/60 O2 Sat by Pulse 93 Oximetry Constitutional: no acute distress, other (critically ill) Eyes: non-icteric Neck: no lymphadenopathy, no JVD, other (right IJ in place) Ascultation: Bilateral: diminished breath sounds, rales (sporadic) Cardiovascular: regular rate and rhythm Gastrointestinal: normoactive bowel sounds, other (distended) Extremities: other (right femoral line) Neurologic: unable to assess CBC and BMP: 01/23/19 04:25 01/23/19 08:39 ABG, PT/INR, D-dimer: ABG POC ABG pH 7.492 (7.35-7.45) H 01/22/19 04:45 POC ABG pCO2 37.2 (35-45) 01/22/19 04:45 POC ABG pO2 64 (80-105) L 01/22/19 04:45 POC ABG HCO3 28.4 (22-26 mml/L) 01/22/19 04:45 POC ABG Total CO2 30 (23-27mmol/L) 01/22/19 04:45 POC ABG O2 Sat 94 01/22/19 04:45 PT/INR, D-dimer PT 15.1 Sec. (12.2-14.9) H 01/19/19 Unknown INR 1.12 (0.87-1.13) 01/19/19 Unknown Abnormal lab findings: Abnormal Labs 01/19/19 01/19/19 01/19/19 07:46 07:46 07:46 WBC RBC Hgb Hct MCV MCH RDW Plt Count Seg Neuts % (Manual) Lymphocytes % (Manual) Monocytes % (Manual) Nucleated RBC % Seg Neutrophils # Man Lymphocytes # (Manual) Monocytes # (Manual) PT INR 0.86 L POC ABG pH POC ABG pCO2 POC ABG pO2 Sodium 114 L* Potassium 6.5 H* Chloride 77.4 L Carbon Dioxide BUN 33 H Creatinine Glucose 128 H POC Glucose Lactic Acid 2.50 H* Calcium Phosphorus Direct Bilirubin AST Total Creatine Kinase < 7 L Troponin T Total Protein Albumin TSH Urine WBC (Auto) Crossmatch 01/19/19 01/19/19 01/19/19 07:46 07:48 08:30 WBC 4.2 L RBC 3.07 L Hgb 10.1 L Hct 30.7 L MCV 100 H MCH 33 H RDW 17.4 H Plt Count Seg Neuts % (Manual) 72.0 H Lymphocytes % (Manual) 11.0 L Monocytes % (Manual) 13.0 H Nucleated RBC % 1.0 H Seg Neutrophils # Man Lymphocytes # (Manual) 0.5 L Monocytes # (Manual) PT INR POC ABG pH POC ABG pCO2 POC ABG pO2 Sodium Potassium Chloride Carbon Dioxide BUN Creatinine Glucose POC Glucose Lactic Acid Calcium Phosphorus Direct Bilirubin AST Total Creatine Kinase Troponin T Total Protein Albumin TSH 8.530 H Urine WBC (Auto) > 182.0 H Crossmatch 01/19/19 01/19/19 01/19/19 10:24 10:24 10:24 WBC RBC Hgb Hct MCV MCH RDW Plt Count Seg Neuts % (Manual) Lymphocytes % (Manual) Monocytes % (Manual) Nucleated RBC % Seg Neutrophils # Man Lymphocytes # (Manual) Monocytes # (Manual) PT INR POC ABG pH 7.305 L POC ABG pCO2 46.8 H POC ABG pO2 Sodium Potassium Chloride Carbon Dioxide BUN Creatinine Glucose POC Glucose Lactic Acid 3.20 H* Calcium Phosphorus Direct Bilirubin AST Total Creatine Kinase Troponin T 0.031 H D Total Protein Albumin TSH Urine WBC (Auto) Crossmatch 01/19/19 01/19/19 01/19/19 14:39 15:04 17:00 WBC RBC Hgb Hct MCV MCH RDW Plt Count Seg Neuts % (Manual) Lymphocytes % (Manual) Monocytes % (Manual) Nucleated RBC % Seg Neutrophils # Man Lymphocytes # (Manual) Monocytes # (Manual) PT INR POC ABG pH 7.320 L POC ABG pCO2 POC ABG pO2 58 L Sodium 116 L* 123 L D Potassium 5.7 H Chloride 82.9 L 89.8 L Carbon Dioxide 17 L BUN 31 H 28 H Creatinine Glucose 129 H 135 H POC Glucose Lactic Acid Calcium 8.1 L Phosphorus 4.80 H Direct Bilirubin AST Total Creatine Kinase Troponin T Total Protein Albumin TSH Urine WBC (Auto) Crossmatch 01/19/19 01/19/19 01/19/19 17:00 22:40 Unknown WBC RBC 3.05 L Hgb 10.0 L Hct 30.7 L MCV 101 H MCH 33 H RDW 16.7 H Plt Count Seg Neuts % (Manual) Lymphocytes % (Manual) Monocytes % (Manual) Nucleated RBC % Seg Neutrophils # Man Lymphocytes # (Manual) Monocytes # (Manual) PT 15.1 H INR POC ABG pH POC ABG pCO2 POC ABG pO2 Sodium 121 L Potassium 5.2 H Chloride 86.9 L Carbon Dioxide BUN 30 H Creatinine Glucose POC Glucose Lactic Acid Calcium Phosphorus 5.20 H Direct Bilirubin AST Total Creatine Kinase Troponin T Total Protein Albumin TSH Urine WBC (Auto) Crossmatch 01/20/19 01/20/19 01/20/19 04:20 16:00 17:39 WBC RBC Hgb Hct MCV MCH RDW Plt Count Seg Neuts % (Manual) Lymphocytes % (Manual) Monocytes % (Manual) Nucleated RBC % Seg Neutrophils # Man Lymphocytes # (Manual) Monocytes # (Manual) PT INR POC ABG pH POC ABG pCO2 POC ABG pO2 Sodium 120 L 119 L* Potassium 5.9 H 7.0 H* Chloride 87.0 L 85.7 L Carbon Dioxide 20 L 18 L BUN 31 H 35 H Creatinine 1.9 H Glucose 120 H POC Glucose 40 L Lactic Acid Calcium 8.1 L 8.0 L Phosphorus 5.10 H 5.80 H Direct Bilirubin AST Total Creatine Kinase Troponin T Total Protein Albumin TSH Urine WBC (Auto) Crossmatch 01/20/19 01/20/19 01/21/19 22:33 Unknown 00:18 WBC RBC Hgb Hct MCV MCH RDW Plt Count Seg Neuts % (Manual) Lymphocytes % (Manual) Monocytes % (Manual) Nucleated RBC % Seg Neutrophils # Man Lymphocytes # (Manual) Monocytes # (Manual) PT INR POC ABG pH POC ABG pCO2 POC ABG pO2 Sodium 125 L D 120 L Potassium 6.2 H* 6.2 H* Chloride 87.3 L 85.8 L Carbon Dioxide 17 L BUN 37 H 33 H Creatinine 1.9 H 1.6 H Glucose 71 L POC Glucose 152 H Lactic Acid Calcium 8.1 L Phosphorus 5.90 H Direct Bilirubin AST Total Creatine Kinase Troponin T Total Protein Albumin TSH Urine WBC (Auto) Crossmatch 01/21/19 01/21/19 01/21/19 02:45 02:45 02:45 WBC 18.8 H RBC 2.36 L Hgb 7.6 L Hct 25.1 L MCV 99 H MCH RDW 16.4 H Plt Count 97 L Seg Neuts % (Manual) 29.0 L Lymphocytes % (Manual) 4.0 L Monocytes % (Manual) Nucleated RBC % 5.0 H Seg Neutrophils # Man Lymphocytes # (Manual) 0.8 L Monocytes # (Manual) PT INR POC ABG pH POC ABG pCO2 POC ABG pO2 Sodium 125 L Potassium 5.8 H Chloride 86.9 L Carbon Dioxide BUN 35 H Creatinine 1.9 H Glucose 119 H POC Glucose Lactic Acid Calcium Phosphorus Direct Bilirubin 0.3 H AST 59 H Total Creatine Kinase Troponin T Total Protein 5.7 L Albumin 3.1 L TSH Urine WBC (Auto) Crossmatch 01/21/19 01/21/19 01/21/19 05:26 05:42 06:41 WBC RBC Hgb Hct MCV MCH RDW Plt Count Seg Neuts % (Manual) Lymphocytes % (Manual) Monocytes % (Manual) Nucleated RBC % Seg Neutrophils # Man Lymphocytes # (Manual) Monocytes # (Manual) PT INR POC ABG pH 7.274 L POC ABG pCO2 58.6 H POC ABG pO2 77 L Sodium Potassium Chloride Carbon Dioxide BUN Creatinine Glucose POC Glucose 182 H Lactic Acid Calcium Phosphorus Direct Bilirubin AST Total Creatine Kinase Troponin T Total Protein Albumin TSH Urine WBC (Auto) Crossmatch 01/21/19 01/21/19 01/21/19 12:09 12:41 17:44 WBC RBC Hgb Hct MCV MCH RDW Plt Count Seg Neuts % (Manual) Lymphocytes % (Manual) Monocytes % (Manual) Nucleated RBC % Seg Neutrophils # Man Lymphocytes # (Manual) Monocytes # (Manual) PT INR POC ABG pH POC ABG pCO2 POC ABG pO2 Sodium Potassium Chloride Carbon Dioxide BUN Creatinine Glucose POC Glucose 129 H 174 H Lactic Acid Calcium Phosphorus Direct Bilirubin AST Total Creatine Kinase Troponin T Total Protein Albumin TSH Urine WBC (Auto) Crossmatch See Detail 01/21/19 01/21/19 01/22/19 20:00 23:47 04:17 WBC 34.5 H RBC 2.34 L Hgb 7.5 L Hct 22.7 L MCV 97 H MCH RDW 16.0 H Plt Count 36 L Seg Neuts % (Manual) 77.0 H Lymphocytes % (Manual) 1.0 L Monocytes % (Manual) Nucleated RBC % 1.0 H Seg Neutrophils # Man 26.6 H Lymphocytes # (Manual) 0.3 L Monocytes # (Manual) 1.4 H PT INR POC ABG pH POC ABG pCO2 POC ABG pO2 Sodium 131 L Potassium 3.5 L D Chloride 88.6 L Carbon Dioxide BUN 32 H Creatinine Glucose 117 H POC Glucose 110 H Lactic Acid Calcium Phosphorus Direct Bilirubin AST Total Creatine Kinase Troponin T Total Protein Albumin TSH Urine WBC (Auto) Crossmatch 01/22/19 01/22/19 01/22/19 04:17 04:45 05:16 WBC RBC Hgb Hct MCV MCH RDW Plt Count Seg Neuts % (Manual) Lymphocytes % (Manual) Monocytes % (Manual) Nucleated RBC % Seg Neutrophils # Man Lymphocytes # (Manual) Monocytes # (Manual) PT INR POC ABG pH 7.492 H POC ABG pCO2 POC ABG pO2 64 L Sodium 131 L Potassium 2.9 L* Chloride 89.8 L Carbon Dioxide BUN 30 H Creatinine Glucose POC Glucose 116 H Lactic Acid Calcium Phosphorus Direct Bilirubin AST Total Creatine Kinase Troponin T Total Protein Albumin TSH Urine WBC (Auto) Crossmatch
--- NOTE | 2019-01-22 08:41 | Consultation ---
History of Present Illness - Reason for Consult Consult date: 01/22/19 bacteremia Requesting physician: PEPITO STAHL - History of Present Illness 63 y/o male with history of CVA with residual aphasia and right hemiparesis s/p PEG, hypothyroidism with previous mixedema coma, diabetes, seizure disorder, renal failure, noncommunicative at baseline, bedbound; admitted on 01/19/2019 due to altered mental status. Per , he is contracted and non verbal at baseline but then she noted cold temperature, worsening sleepiness and wheezing for 2-3 days. EMS reported HR 24-78 and wheezing. In the ED, HR 36, R 16, BP 80/42, O2 sat 100%. Temp was first time checked on 01/20 98.2 then 102.8. WBC 4.2. Hg 10.1. Bren 223. Na 114. K 6.5. Creat 1.1.Lactate 2.5. TSH 8.5. UA 185 wbc, LE moderate. Blood culture 01/19/2019 Enterococcus sp 1 of 4 bottles. Urine culture 01/19/2019 Klebsiella. CXR showed extensive airspace disease in right lung and in left perihilar region, new in comparison to prior examination. HR was 30s to 60s. Patient given atropine. EKG showed a junctional rhythm with a heart rate of 30. Patient placed on epinephrine and dopamine drip, intubated. ROS: unable to obtain Past History Past Medical History: diabetes, hypertension, hyperlipidemia, hypothyroidism (with Myxedema com in 2014), stroke Past Surgical History: Other (tracheostomy) Social history: . denies: smoking, alcohol abuse Family history: other (unable to obtain because patient is nonverbal) Medications and Allergies Allergies Allergy/AdvReac Type Severity Reaction Status Date / Time No Known Allergies Allergy Verified 01/19/19 08:23 Home Medications Medication Instructions Recorded Confirmed Last Taken Type Baclofen [Lioresal] 5 mg PO TID 10/18/17 03/09/18 Unknown History Levothyroxine (Nf) [Synthroid (Nf)] 200 mcg NGTUBE QAM 10/18/17 03/09/18 Unknown History Liothyronine Sodium [Cytomel] 5 mcg NGTUBE QAM 10/18/17 03/09/18 10/30/17 History OXcarbazepine [Trileptal] 900 mg NGTUBE BID 10/18/17 03/09/18 Unknown History Valproic Acid (As Sodium Salt) 20 ml NGTUBE Q12H 10/18/17 03/09/18 Unknown History [Depakene] amLODIPine [Norvasc] 10 mg NGTUBE DAILY 10/18/17 03/09/18 Unknown History levETIRAcetam [Keppra TAB] 1,000 mg NGTUBE BID 10/18/17 03/09/18 Unknown History Insulin Aspart [NovoLOG Flexpen] See Protocol SQ Q6H 30 Days 10/26/17 03/09/18 Unknown Rx insuln.pen Insulin NPH/Regular [NovoLIN 70/30] 18 unit SQ BIDDIAB 30 Days ml 10/26/17 03/09/18 Unknown Rx hydrALAZINE [Apresoline TAB] 25 mg PO Q8HR #90 tablet 10/26/17 03/09/18 Unknown Rx Polyethylene Glycol 3350 [Miralax 17 gm PO BID #30 packet 11/10/17 03/09/18 Unknown Rx 3350] Sennosides/Docusate [Senokot S] 1 tab PO Q12HR #30 tablet 11/10/17 03/09/18 Unknown Rx cloNIDine-TTS PATCH [Catapres-Tts 0.3 mg TD QWEEK patch 03/12/18 Unknown Rx 0.3mg Patch] Active Meds: Active Medications Acetaminophen (Tylenol) 650 mg PO Q6H PRN PRN Reason: Fever > 101 Last Admin: 01/21/19 03:59 Dose: 650 mg Documented by: Dextrose (D50w (25gm) Syringe) 50 ml IV PRN PRN PRN Reason: Hypoglycemia Last Admin: 01/21/19 16:53 Dose: 50 ml Documented by: Famotidine (Pepcid) 20 mg IV BID PRISCA Last Admin: 01/21/19 21:03 Dose: 20 mg Documented by: Hydrocortisone Sodium Succinate (Solu-Cortef) 150 mg IV Q8H PRISCA Last Admin: 01/22/19 06:07 Dose: 150 mg Documented by: Ceftriaxone Sodium (Rocephin/Ns 1 Gm/50 Ml) 1 gm in 50 mls @ 100 mls/hr IV Q24H PRISCA; Protocol Stop: 01/28/19 16:29 Last Admin: 01/21/19 15:46 Dose: 100 mls/hr Documented by: Dopamine HCl/Dextrose (Intropin Drip 800 Mg/D5w 250 Ml) 800 mg in 250 mls @ 4.082 mls/hr IV TITR PRISCA; Protocol Last Titration: 01/22/19 06:05 Dose: 6 mcg/kg/min, 12.247 mls/hr Documented by: Epinephrine 8 mg/ Sodium (Chloride) 250 mls @ 3.75 mls/hr IV TITR PRISCA; Protocol Last Titration: 01/21/19 12:00 Dose: 0 mcg/min, 0 mls/hr Documented by: Vancomycin HCl 1,500 mg/ (Sodium Chloride) 530 mls @ 333.333 mls/hr IV ONCE ONE Stop: 01/22/19 10:35 Potassium Chloride (Kcl 20meq/100ml) 20 meq in 100 mls @ 100 mls/hr IV Q1H PRISCA Stop: 01/22/19 10:59 Insulin Human Lispro (Humalog) 0 unit SUB-Q Q6HR PRISCA; Protocol Last Admin: 01/22/19 06:08 Dose: Not Given Documented by: Levothyroxine Sodium (Synthroid) 100 mcg IV DAILY@0600 [facility] Last Admin: 01/22/19 06:07 Dose: 100 mcg Documented by: Physical Examination - Physical Exam Narrative exam: General appearance: intubated in NAD,alert no follows commands Eyes: anicteric sclerae, moist conjunctivae; no lid-lag; PERRLA HENT: Atraumatic; oropharynx +ETT +NGT . Neck: Trachea midline; supple, no thyromegaly or lymphadenopathy Lungs: bilateral loud rhonchi CV: bradycardia Abdomen: Soft, non-tender;+PEG Extremities: bilateral leg edema, right hand edema Skin: Normal temperature, turgor and texture; no rash, ulcers or subcutaneous nodules Psych: no agitated. Neuro: alert no agitated, contracted. Right femoral TLC/klein - Constitutional Vitals: Vital Signs Temp Pulse Resp BP Pulse Ox 98.3 F 85 17 100/64 94 01/22/19 08:00 01/22/19 08:28 01/22/19 06:15 01/22/19 08:28 01/22/19 08:28 Temperature -Last 24 Hours Temperature 98.3 F Temperature 98.9 F Temperature 98.9 F Temperature 98.6 F Temperature 98.7 F Temperature 97.4 F Temperature 99.1 F Results - Labs CBC & Chem 7: 01/22/19 04:17 01/22/19 04:17 Labs: Abnormal lab results 01/21/19 01/21/19 01/21/19 Range/Units 12:09 12:41 17:44 WBC (4.5-11.0) K/mm3 RBC (3.65-5.03) M/mm3 Hgb (11.8-15.2) gm/dl Hct (35.5-45.6) % MCV (84-94) fl RDW (13.2-15.2) % Plt Count (140-440) K/mm3 Seg Neuts % (Manual) (40.0-70.0) % Lymphocytes % (Manual) (13.4-35.0) % Nucleated RBC % (0.0-0.9) % Seg Neutrophils # Man (1.8-7.7) K/mm3 Lymphocytes # (Manual) (1.2-5.4) K/mm3 Monocytes # (Manual) (0.0-0.8) K/mm3 POC ABG pH (7.35-7.45) POC ABG pO2 (80-105) Sodium (137-145) mmol/L Potassium (3.6-5.0) mmol/L Chloride (98-107) mmol/L BUN (9-20) mg/dL Glucose (75-100) mg/dL POC Glucose 129 H 174 H (70-105) Crossmatch See Detail 01/21/19 01/21/19 01/22/19 Range/Units 20:00 23:47 04:17 WBC 34.5 H (4.5-11.0) K/mm3 RBC 2.34 L (3.65-5.03) M/mm3 Hgb 7.5 L (11.8-15.2) gm/dl Hct 22.7 L (35.5-45.6) % MCV 97 H (84-94) fl RDW 16.0 H (13.2-15.2) % Plt Count 36 L (140-440) K/mm3 Seg Neuts % (Manual) 77.0 H (40.0-70.0) % Lymphocytes % (Manual) 1.0 L (13.4-35.0) % Nucleated RBC % 1.0 H (0.0-0.9) % Seg Neutrophils # Man 26.6 H (1.8-7.7) K/mm3 Lymphocytes # (Manual) 0.3 L (1.2-5.4) K/mm3 Monocytes # (Manual) 1.4 H (0.0-0.8) K/mm3 POC ABG pH (7.35-7.45) POC ABG pO2 (80-105) Sodium 131 L (137-145) mmol/L Potassium 3.5 L D (3.6-5.0) mmol/L Chloride 88.6 L (98-107) mmol/L BUN 32 H (9-20) mg/dL Glucose 117 H (75-100) mg/dL POC Glucose 110 H (70-105) Crossmatch 01/22/19 01/22/19 01/22/19 Range/Units 04:17 04:45 05:16 WBC (4.5-11.0) K/mm3 RBC (3.65-5.03) M/mm3 Hgb (11.8-15.2) gm/dl Hct (35.5-45.6) % MCV (84-94) fl RDW (13.2-15.2) % Plt Count (140-440) K/mm3 Seg Neuts % (Manual) (40.0-70.0) % Lymphocytes % (Manual) (13.4-35.0) % Nucleated RBC % (0.0-0.9) % Seg Neutrophils # Man (1.8-7.7) K/mm3 Lymphocytes # (Manual) (1.2-5.4) K/mm3 Monocytes # (Manual) (0.0-0.8) K/mm3 POC ABG pH 7.492 H (7.35-7.45) POC ABG pO2 64 L (80-105) Sodium 131 L (137-145) mmol/L Potassium 2.9 L* (3.6-5.0) mmol/L Chloride 89.8 L (98-107) mmol/L BUN 30 H (9-20) mg/dL Glucose (75-100) mg/dL POC Glucose 116 H (70-105) Crossmatch Assessment and Plan Cultures: Blood culture 01/19/2019 Enterococcus sp 1 of 4 bottles. Urine culture 01/19/2019 Klebsiella. 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 Per , he is contracted and non verbal at baseline but then she noted cold temperature, worsening sleepiness and wheezing for 2-3 days: 1) Shock likely mixed cardiogenic due to symptomatic bradycardia +/- ?mixedema coma +/- septic: Present on admission, manifested by fever, bradycardia, hypotension, bandemia, increased lactate. Septic etiology most likely Enterococcus bacteremia +/- Klebsiella UTI +/- pneumonia. Currently on dopamine gtt and ceftriaxone. 2) Enterococcus bacteremia: unclear source, should rule out endocarditis. 3) Klebsiella UTI: UA 185 wbc, LE moderate. Urine culture 01/19/2019 Klebsiella 4) Pneumonia: likely aspiration pneumonia. CXR showed extensive airspace disease in right lung and in left perihilar region, new in comparison to prior examination. 5) Acute on chronic encephalopathy: multifactorial from hyponatremia, symptomatic bradycardia and sepsis 6) Uncontrolled hypothyroidism Recommendations: - follow-up blood cultures, urine culture - repeat blood cultures - obtain respiratory cultures, procalcitonin, C-reactive protein (CRP) - TTE to r/o endocarditis - agree with adding vancomycin - add flagyl IV to cover aspiration pneumonitis - continue ceftriaxone 2 gm IV q day Will follow. Gloria Valencia MD Infectious Diseases Education Administrative Assistant [facility] ([facility] M [phone] O [phone]
[2019-01-22] MEDS ORDERED: VANCOMYCIN 1,500 MG in NACL 0.9% 500 ML 500 ML IV ONE (09:00)
--- NOTE | 2019-01-22 09:01 | Progress Note ---
Assessment and Plan Assessment and plan: 63 y/o male with history of CVA with residual right sided weakness who was brought from home to the ED due to change in mental state. Per report, not verbal at baseline. Per EMS, patient had HR in the 20's and was given atropine. Brought to the ED and was found to be severely hyponatremic as well as h yperkalemic, hypothermic and hypotensive. Subsequently, patient started bleeding from multiple orifices CXR: IMPRESSION: The endotracheal tube lies in appropriate position Extensive airspace disease in right lung and in left perihilar region, new in comparison to prior examination of earlier in the day. Renal US: IMPRESSION: Nonspecific renal parenchymal disease.Slightly complex left renal cyst which is grossly unchanged since CT dated 10/30/17. Severe sepsis with shock -Worsening Leukocytosis -likely secondary to Klebsiella UTI -On IV antibiotic and dopamine drip -Urine culture positive for Klebsiella pneumoniae. -Blood cultures 1 out of 2 bottles positive for gram positive cocci -ID consulted. Bleeding from multiple orifices/Possible DIC- Thrombocytopenia, ANEMIA -will monitor H/H and coagulation profile=- continues to decline. -Condition guarded with poor prognosis -Low platelet Acute hypoxic and hypercapnic respiratory failure -Status post intubation on mechanical ventilator -Pulmonology following Symptomatic severe sinus bradycardia -Status post multiple doses of atropine -HR improving on epinephrine drip -Cardiology following Severe hyponatremia -Level improving, will monitor -Nephrology following ASHOK, probably vasomotor nephropathy -Creatinine level IMROVING, will monitor level -Renal ultrasound negative for hydronephrosis -Nephrology following Recurrent Hyperkalemia now Hypokalemia -Discussed with Nephrology, they will replace. -We'll continue treatment and monitor potassium level -Nephrology following Acute on chronic metabolic encephalopathy -Likely due to the acute process -Head CT scan pending Anemia of acute loss -IU PRBC ordered, will monitor H/H DM2 -Blood glucose currently stable Hypothyroidism -TSH level elevated but free T4 normal -On a stress dose IV steroid and IV Synthroid by pulmonology History of CVA with residual right sided weakness and non-verbal -Continue supportive care Chronic sacral decubitus ulcers -Wound care nurse consulted Chronic dysphagia status post PEG tube placement -Dietitian consulted dvt/gi PROPHY scd secondary to thromobocytopenia The high probability of a clinically significant, sudden or life threatening deterioration of the [neuro, pulmonary, nephro] system(s) required my full and direct attention, intervention and personal management. The aggregate critical care time was [45] minutes. This time is in addition to time spent performing reported procedures but includes the following: [x] Data Review and interpretation [x] Patient assessment and monitoring of vital signs [x] Documentation [x] Medication orders and management History Interval history: Pateint seen and examined, remains on full ventilatory support Hospitalist Physical - Physical exam Narrative exam: General appearance: Present: mild distress on full MVS - EENT Eyes: Present: PERRL ENT: other (patient is intubated) - Neck Neck: Present: supple - Respiratory Respiratory effort: labored Respiratory: bilateral: rales - Cardiovascular Rhythm: regular (with bradycardia) Heart Sounds: Present: S1 & S2 - Extremities Extremity abnormal: pitting edema (in bilateral upper and lower extremities) - Abdominal General gastrointestinal: distended (firm on palpation), normal bowel sounds - Integumentary Integumentary: Present: erythema (sacral decubitus ulcers) - Neurologic Neurologic: other (patient is unresponsive although sluggishly opens eyes on verbal stimuli) - Constitutional Vitals: Temp Pulse Resp BP Pulse Ox 98.3 F 85 17 100/64 94 01/22/19 08:00 01/22/19 08:28 01/22/19 06:15 01/22/19 08:28 01/22/19 08:28 General appearance: Present: no acute distress Results - Labs CBC & Chem 7: 01/23/19 04:25 01/22/19 16:50 Labs: Laboratory Last Values WBC 34.5 K/mm3 (4.5-11.0) H 01/22/19 04:17 RBC 2.34 M/mm3 (3.65-5.03) L 01/22/19 04:17 Hgb 7.5 gm/dl (11.8-15.2) L 01/22/19 04:17 Hct 22.7 % (35.5-45.6) L 01/22/19 04:17 MCV 97 fl (84-94) H 01/22/19 04:17 MCH 32 pg (28-32) 01/22/19 04:17 MCHC 33 % (32-34) 01/22/19 04:17 RDW 16.0 % (13.2-15.2) H 01/22/19 04:17 Plt Count 36 K/mm3 (140-440) L 01/22/19 04:17 Lymph % (Auto) Pole [place] 01/19/19 07:48 [place] % (Auto) Pole Setter 01/19/19 07:48 Eos % (Auto) Pole Setter 01/19/19 07:48 Baso % (Auto) [place] 01/19/19 07:48 Lymph # Pole Setter 01/19/19 07:48 [place] # Pole Setter 01/19/19 07:48 Eos # Pole Setter 01/19/19 07:48 Baso # Pole Setter 01/19/19 07:48 Add Manual Diff Complete 01/22/19 04:17 Total Counted 100 01/22/19 04:17 Seg Neutrophils % Pole Setter 01/22/19 04:17 Seg Neuts % (Manual) 77.0 % (40.0-70.0) H 01/22/19 04:17 Band Neutrophils % 15.0 % 01/22/19 04:17 Lymphocytes % (Manual) 1.0 % (13.4-35.0) L 01/22/19 04:17 Reactive Lymphs % (Man) 0 % 01/22/19 04:17 Monocytes % (Manual) 4.0 % (0.0-7.3) 01/22/19 04:17 Eosinophils % (Manual) 0 % (0.0-4.3) 01/22/19 04:17 Basophils % (Manual) 0 % (0.0-1.8) 01/22/19 04:17 Metamyelocytes % 3.0 % 01/22/19 04:17 Myelocytes % 0 % 01/22/19 04:17 Promyelocytes % 0 % 01/22/19 04:17 Blast Cells % 0 % 01/22/19 04:17 Nucleated RBC % 1.0 % (0.0-0.9) H 01/22/19 04:17 Seg Neutrophils # Pole Set[place] 01/19/19 07:48 Seg Neutrophils # Man 26.6 K/mm3 (1.8-7.7) H 01/22/19 04:17 Band Neutrophils # 5.2 K/mm3 01/22/19 04:17 Lymphocytes # (Manual) 0.3 K/mm3 (1.2-5.4) L 01/22/19 04:17 Abs React Lymphs (Man) 0.0 K/mm3 01/22/19 04:17 Monocytes # (Manual) 1.4 K/mm3 (0.0-0.8) H 01/22/19 04:17 Eosinophils # (Manual) 0.0 K/mm3 (0.0-0.4) 01/22/19 04:17 Basophils # (Manual) 0.0 K/mm3 (0.0-0.1) 01/22/19 04:17 Metamyelocytes # 1.0 K/mm3 01/22/19 04:17 Myelocytes # 0.0 K/mm3 01/22/19 04:17 Promyelocytes # 0.0 K/mm3 01/22/19 04:17 Blast Cells # 0.0 K/mm3 01/22/19 04:17 WBC Morphology Not Reportable 01/22/19 04:17 Hypersegmented Neuts Not Reportable 01/22/19 04:17 Hyposegmented Neuts Not Reportable 01/22/19 04:17 Hypogranular Neuts Not Reportable 01/22/19 04:17 Smudge Cells Not Reportable 01/22/19 04:17 Toxic Granulation Not Reportable 01/22/19 04:17 Toxic Vacuolation Not Reportable 01/22/19 04:17 Dohle Bodies 1+ 01/22/19 04:17 Pelger-Huet Anomaly Not Reportable 01/22/19 04:17 Kaitlyn Rods Not Reportable 01/22/19 04:17 Platelet Estimate Consistent w auto 01/22/19 04:17 Clumped Platelets Not Reportable 01/22/19 04:17 Plt Clumps, EDTA Not Reportable 01/22/19 04:17 Large Platelets 1+ 01/22/19 04:17 Giant Platelets Not Reportable 01/22/19 04:17 Platelet Satelliting Not Reportable 01/22/19 04:17 Plt Morphology Comment Not Reportable 01/22/19 04:17 RBC Morphology Not Reportable 01/22/19 04:17 Dimorphic RBCs Not Reportable 01/22/19 04:17 Polychromasia Not Reportable 01/22/19 04:17 Hypochromasia Not Reportable 01/22/19 04:17 Poikilocytosis Not Reportable 01/22/19 04:17 Anisocytosis 1+ 01/22/19 04:17 Microcytosis Not Reportable 01/22/19 04:17 Macrocytosis Not Reportable 01/22/19 04:17 Spherocytes Not Reportable 01/22/19 04:17 Pappenheimer Bodies Not Reportable 01/22/19 04:17 Sickle Cells Not Reportable 01/22/19 04:17 Target Cells Few 01/22/19 04:17 Tear Drop Cells Not Reportable 01/22/19 04:17 Ovalocytes Not Reportable 01/22/19 04:17 Helmet Cells Not Reportable 01/22/19 04:17 [place] Bodies Not Reportable 01/22/19 04:17 Gill Rings Not Reportable 01/22/19 04:17 [place] Cells Not Reportable 01/22/19 04:17 Bite Cells Not Reportable 01/22/19 04:17 Crenated Cell Not Reportable 01/22/19 04:17 Elliptocytes Not Reportable 01/22/19 04:17 Acanthocytes (Spur) Not Reportable 01/22/19 04:17 Rouleaux Not Reportable 01/22/19 04:17 Hemoglobin C Crystals Not Reportable 01/22/19 04:17 Schistocytes Not Reportable 01/22/19 04:17 Malaria parasites Not Reportable 01/22/19 04:17 Dionisio Bodies Not Reportable 01/22/19 04:17 Hem Pathologist Commnt No 01/22/19 04:17 PT 15.1 Sec. (12.2-14.9) H 01/19/19 Unknown INR 1.12 (0.87-1.13) 01/19/19 Unknown APTT 33.5 Sec. (24.2-36.6) 01/19/19 Unknown POC ABG pH 7.492 (7.35-7.45) H 01/22/19 04:45 POC ABG pCO2 37.2 (35-45) 01/22/19 04:45 POC ABG pO2 64 (80-105) L 01/22/19 04:45 POC ABG HCO3 28.4 (22-26 mml/L) 01/22/19 04:45 POC ABG Total CO2 30 (23-27mmol/L) 01/22/19 04:45 POC ABG O2 Sat 94 01/22/19 04:45 POC ABG Base Excess 5 ((-2) - (+3)mmol/L) 01/22/19 04:45 FiO2 60 % 01/22/19 04:45 Sodium 131 mmol/L (137-145) L 01/22/19 04:17 Potassium 2.9 mmol/L (3.6-5.0) L* 01/22/19 04:17 Chloride 89.8 mmol/L (98-107) L 01/22/19 04:17 Carbon Dioxide 29 mmol/L (22-30) 01/22/19 04:17 Anion Gap 15 mmol/L 01/22/19 04:17 BUN 30 mg/dL (9-20) H 01/22/19 04:17 Creatinine 1.4 mg/dL (0.8-1.5) 01/22/19 04:17 Estimated GFR > 60 ml/min 01/22/19 04:17 BUN/Creatinine Ratio 21 % 01/22/19 04:17 Glucose 94 mg/dL (75-100) 01/22/19 04:17 POC Glucose 116 (70-105) H 01/22/19 05:16 Osmolality 268 Mosm/kg 01/20/19 17:52 Lactic Acid 3.20 mmol/L (0.7-2.0) H* 01/19/19 10:24 Uric Acid 5.3 mg/dL (3.5-7.6) 01/20/19 17:52 Calcium 8.6 mg/dL (8.4-10.2) 01/22/19 04:17 Phosphorus 5.90 mg/dL (2.5-4.5) H 01/20/19 Unknown Magnesium 1.90 mg/dL (1.7-2.3) 01/20/19 Unknown Total Bilirubin 0.40 mg/dL (0.1-1.2) 01/21/19 02:45 Direct Bilirubin 0.3 mg/dL (0-0.2) H 01/21/19 02:45 Indirect Bilirubin 0.1 mg/dL 01/21/19 02:45 AST 59 units/L (5-40) H 01/21/19 02:45 ALT 28 units/L (7-56) 01/21/19 02:45 Alkaline Phosphatase 91 units/L (35-129) 01/21/19 02:45 Ammonia 34.0 umol/L (25-60) 01/19/19 07:48 Total Creatine Kinase < 7 units/L (55-170) L 01/19/19 07:46 Troponin T 0.031 ng/mL (0.00-0.029) H D 01/19/19 10:24 Total Protein 5.7 g/dL (6.3-8.2) L 01/21/19 02:45 Albumin 3.1 g/dL (3.9-5) L 01/21/19 02:45 Albumin/Globulin Ratio 1.2 % 01/21/19 02:45 Triglycerides 78 mg/dL (2-149) 01/19/19 10:24 Cholesterol 130 mg/dL (50-199) 01/19/19 10:24 LDL Cholesterol Direct 71 mg/dL (50-130) 01/19/19 10:24 HDL Cholesterol 53 mg/dL (40-59) 01/19/19 10:24 Cholesterol/HDL Ratio 2.45 % 01/19/19 10:24 TSH 8.530 mlU/mL (0.270-4.200) H 01/19/19 07:46 Free T4 0.92 ng/dL (0.76-1.46) 01/19/19 14:39 Urine Color Yellow (Yellow) 01/19/19 08:30 Urine Turbidity Turbid (Clear) 01/19/19 08:30 Urine pH 5.0 (5.0-7.0) 01/19/19 08:30 Ur Specific [place] 1.020 (1.003-1.030) 01/19/19 08:30 Urine Protein 100 mg/dl mg/dL (Negative) 01/19/19 08:30 Urine Glucose (UA) Neg mg/dL (Negative) 01/19/19 08:30 Urine Ketones Neg mg/dL (Negative) 01/19/19 08:30 Urine Blood Sm (Negative) 01/19/19 08:30 Urine Nitrite Neg (Negative) 01/19/19 08:30 Urine Bilirubin Sm (Negative) 01/19/19 08:30 Urine Ictotest Negative (Negative) 01/19/19 08:30 Urine Urobilinogen < 2.0 mg/dL (<2.0) 01/19/19 08:30 Ur Leukocyte Esterase Mod (Negative) 01/19/19 08:30 Urine WBC (Auto) > 182.0 /HPF (0.0-6.0) H 01/19/19 08:30 Urine RBC (Auto) 134.0 /HPF (0.0-6.0) 01/19/19 08:30 Urine Bacteria (Auto) 4+ /HPF (Negative) 01/19/19 08:30 Urine WBC Clumps 3+ /HPF 01/19/19 08:30 Ur Transition Epith Cell 6 /HPF 01/19/19 08:30 Amorphous Crystals 2+ 01/19/19 08:30 Urine Osmolality 225 Mosm/kg 01/21/19 02:50 Urine Sodium 64 mmol/L 01/21/19 02:50 Urine Potassium 31.83 mmol/L 01/21/19 02:50 Blood Type O POSITIVE 01/21/19 12:09 Antibody Screen Negative 01/21/19 12:09 Crossmatch See Detail 01/21/19 12:09 Active Medications - Current Medications Current Medications: Generic Name Dose Route Start Last Admin Trade Name Freq PRN Reason Stop Dose Admin Acetaminophen 650 mg 01/21/19 02:23 01/21/19 03:59 Tylenol PO 650 mg Q6H PRN Administration Fever > 101 Dextrose 50 ml 01/19/19 16:42 01/21/19 16:53 D50w (25gm) Syringe IV 50 ml PRN PRN Administration Hypoglycemia Famotidine 20 mg 01/20/19 11:00 01/21/19 21:03 Pepcid IV 20 mg BID PRISCA Administration Hydrocortisone Sodium Succinate 150 mg 01/20/19 22:00 01/22/19 06:07 Solu-Cortef IV 150 mg Q8H PRISCA Administration Ceftriaxone Sodium 1 gm in 50 mls @ 100 mls/hr 01/19/19 16:00 01/21/19 15:46 Rocephin/Ns 1 Gm/50 Ml IV 01/28/19 16:29 100 mls/hr Q24H PRISCA Administration Protocol Dopamine HCl/Dextrose 800 mg in 250 mls @ 4.082 mls/hr 01/19/19 20:00 01/22/19 06:05 Intropin Drip 800 Mg/D5w 250 Ml IV 6 mcg/kg/min TITR PRISCA 12.247 mls/hr Titration Protocol 2 MCG/KG/MIN Epinephrine 8 mg/ Sodium 250 mls @ 3.75 mls/hr 01/20/19 09:00 01/21/19 12:00 Chloride IV 0 mcg/min TITR PRISCA 0 mls/hr Titration Protocol 2 MCG/MIN Vancomycin HCl 1,500 mg/ 530 mls @ 333.333 mls/hr 01/22/19 09:00 Sodium Chloride IV 01/22/19 10:35 ONCE ONE Potassium Chloride 20 meq in 100 mls @ 100 mls/hr 01/22/19 09:00 Kcl 20meq/100ml IV 01/22/19 10:59 Q1H [facility] Insulin Human Lispro 0 unit 01/19/19 18:00 01/22/19 06:08 Humalog SUB-Q Not Given Q6HR [facility] Protocol Levothyroxine Sodium 100 mcg 01/19/19 06:00 01/22/19 06:07 Synthroid IV 100 mcg DAILY@0600 [facility] Administration Nutrition/Malnutrition Assess - Dietary Evaluation Nutrition/Malnutrition Findings: Nutrition Notes Start: 01/20/19 12:26 Freq: Status: Active Protocol: Document 01/21/19 11:14 EB (Rec: 01/21/19 11:31 EB [id number]) Co-Sign 01/21/19 11:14 LP Nutrition Notes Initial or Follow up Reassessment Current Diagnosis Decubitus(Pressure Ulcer), Diabetes,Sepsis,Hypertension, Stroke,Hyperlipidemia Other Pertinent Diagnosis AMS, Bradycardia Current Diet No diet ordered Labs/Tests Na 125 K 5.8 BUN 35 Phos 5.9 Pertinent Medications Dopamine gtt, Epinephrine gtt, SoluCortef Height 5 ft 11 in Weight 104.4 kg [place] Body Weight (kg) 78.18 BMI 32.1 Weight Status Obese Subjective/Other Information RD consulted for Malnutrition. Awaiting TF consult until pt becomes more stable. Pt continues on vent support. NFPE revealed +1 pitting edema , slight temporal wasting, and confirmation of PU on left foot. No other signs of muscle or fat wasting upon physical examination. Percent of energy/protein needs met: 0%/0% Burn Absent Trauma Absent Current % PO Negligible Minimum of two criteria Yes Muscle Mass Mild Depletion (non-severe) Fluid Accumulation Mild (non-severe) #2 Nutrition Diagnosis Malnutrition Etiology physiological causes resulting in diminished intake As Evidenced by Signs and Symptoms slight temporal wasting, +1 pitting bilateral LE edema, and PU on left foot #1 Nutrition Diagnosis Inadequate oral intake [facility]ti[facility] As Evidenced by Signs and Symptoms pt NPO Diagnosis Progress(for reassessment Continues documentation) Is patient on ventilator? Yes Is Patient Ambulatory and/or Out of Bed No REE-([facility]-confined to bed) 2226.336 Kcal/Kg value to use for calculation 17 Approximate Energy Requirements Using 1775 kcal/Kg Calculation Used for Recommendations Kcal/kg Additional Notes Pro needs 2g/kgIBW: 156g/day Fluid needs 1ml/kcal Nutrition Intervention Nutrition Support: Start EN support when medically feasible Goal #1 Start EN support to meet nutrient needs Anticipated Discharge Needs: Continue EN support Follow-Up By: 01/23/19 Additional Comments F/U: TF consult
--- NOTE | 2019-01-22 09:15 | Progress Note ---
Subjective Principal diagnosis: hypoxic/hypercarbic respiratory failure Interval history: Patient was seen today for follow-up on multiple renal related issues blood pressure is stable renal function much better Vitals labs intake output medications were reviewed Social history: Reviewed Allergies: Reviewed Family history: Reviewed Physical examination HEENT: Oral mucosa moist no pallor or icterus Neck: Supple no JVD Chest: Bilateral few basilar crackles CVS: Regular rate and rhythm S1 and S2 heard Abdomen: Soft nontender no suprapubic masses no organomegaly appreciable Extremity: Skin appears to have changes of myxedema Musculoskeletal: No joint effusion noted in knees and ankle Neurological: patient is encephalopathic Dermatology: No petechial rashes Psychiatry: No evidence of any agitation and aggression noted Acute renal failure: Currently in remission, creatinine is currently 1.4 Hyponatremia: Appears to have improved satisfactorily to 131 needs monitoring Renal ultrasonogram shows complex left renal cyst unchanged since October 2017, he will need to follow up with urology upon discharge to be arranged by the [facility] permitting, Hyperkalemia: Patient is currently mildly hypokalemic, he is currently receiving potassium replacement he will need a follow up on the potassium level Metabolic acidosis appears to have resolved completely at this time, Some evidence of volume overload due to resuscitation Respiratory failure currently intubated History of myxedema coma, metabolic encephalopathy, being followed by neurology Patient noted to be septic with bacteremia, source currently unclear being followed by infectious disease Overall patient is doing well from a renal standpoint, family has been informed about the renal progress We'll continue to follow and make recommendation from renal standpoint Objective - Vital Signs Vital signs: Vital Signs - 12hr 01/21/19 01/21/19 01/21/19 21:30 21:45 22:00 Temperature Pulse Rate 90 111 H 93 H Pulse Rate [ From Monitor] Respiratory 18 18 18 Rate Blood Pressure 129/63 121/71 129/68 O2 Sat by Pulse 89 89 90 Oximetry 01/21/19 01/21/19 01/21/19 22:15 22:30 22:45 Temperature Pulse Rate 109 H 111 H 105 H Pulse Rate [ From Monitor] Respiratory 18 21 18 Rate Blood Pressure 120/75 132/76 123/70 O2 Sat by Pulse 90 89 89 Oximetry 01/21/19 01/21/19 01/21/19 23:00 23:11 23:15 Temperature Pulse Rate 97 H 103 H 109 H Pulse Rate [ From Monitor] Respiratory 22 27 H Rate Blood Pressure 121/64 121/64 116/68 O2 Sat by Pulse 90 93 89 Oximetry 01/21/19 01/21/19 01/22/19 23:30 23:45 00:00 Temperature 98.6 F Pulse Rate 97 H 105 H 99 H Pulse Rate [ 105 H From Monitor] Respiratory 19 13 18 Rate Blood Pressure 112/63 115/63 98/50 O2 Sat by Pulse 90 90 90 Oximetry 01/22/19 01/22/19 01/22/19 00:15 00:30 00:45 Temperature Pulse Rate 102 H 106 H 113 H Pulse Rate [ From Monitor] Respiratory 18 18 18 Rate Blood Pressure 112/63 144/86 136/78 O2 Sat by Pulse 86 92 91 Oximetry 01/22/19 01/22/19 01/22/19 01:00 01:15 01:30 Temperature Pulse Rate 94 H 95 H 100 H Pulse Rate [ From Monitor] Respiratory 18 18 18 Rate Blood Pressure 130/76 133/71 136/74 O2 Sat by Pulse 92 92 92 Oximetry 01/22/19 01/22/19 01/22/19 01:45 02:00 02:15 Temperature Pulse Rate 98 H 109 H 98 H Pulse Rate [ From Monitor] Respiratory 18 18 18 Rate Blood Pressure 128/77 124/70 137/71 O2 Sat by Pulse 93 92 91 Oximetry 01/22/19 01/22/19 01/22/19 02:31 02:45 03:00 Temperature Pulse Rate 94 H 92 H 99 H Pulse Rate [ From Monitor] Respiratory 14 18 17 Rate Blood Pressure 84/44 140/66 133/62 O2 Sat by Pulse 91 93 93 Oximetry 01/22/19 01/22/19 01/22/19 03:15 03:31 03:45 Temperature Pulse Rate 94 H Pulse Rate [ From Monitor] Respiratory 17 Rate Blood Pressure 141/66 114/65 114/65 O2 Sat by Pulse 93 90 87 Oximetry 01/22/19 01/22/19 01/22/19 04:00 04:01 04:15 Temperature 98.9 F Pulse Rate 111 H 93 H Pulse Rate [ 98 H From Monitor] Respiratory 18 18 17 Rate Blood Pressure 144/72 144/72 O2 Sat by Pulse 94 91 94 Oximetry 01/22/19 01/22/19 01/22/19 04:30 04:45 05:00 Temperature Pulse Rate 85 90 84 Pulse Rate [ From Monitor] Respiratory 18 18 18 Rate Blood Pressure 112/64 120/60 117/63 O2 Sat by Pulse 93 91 95 Oximetry 01/22/19 01/22/19 01/22/19 05:15 05:30 05:45 Temperature Pulse Rate 87 76 85 Pulse Rate [ From Monitor] Respiratory 18 18 18 Rate Blood Pressure 121/71 122/69 135/67 O2 Sat by Pulse 95 93 94 Oximetry 01/22/19 01/22/19 01/22/19 06:01 06:15 08:00 Temperature 98.3 F Pulse Rate 83 100 H Pulse Rate [ From Monitor] Respiratory 18 17 Rate Blood Pressure 125/75 137/60 O2 Sat by Pulse 94 93 Oximetry 01/22/19 08:28 Temperature Pulse Rate 85 Pulse Rate [ From Monitor] Respiratory Rate Blood Pressure 100/64 O2 Sat by Pulse 94 Oximetry - Lab 01/22/19 04:17 01/22/19 04:17 Most recent lab results Calcium 8.6 mg/dL (8.4-10.2) 01/22/19 04:17 Phosphorus 5.90 mg/dL (2.5-4.5) H 01/20/19 Unknown Magnesium 1.90 mg/dL (1.7-2.3) 01/20/19 Unknown Urine Sodium 64 mmol/L 01/21/19 02:50 Medications & Allergies - Medications Allergies/Adverse Reactions: Allergies No Known Allergies Allergy (Verified 01/19/19 08:23) Home Medications: Home Medications Medication Instructions Recorded Confirmed Last Taken Type Baclofen [Lioresal] 5 mg PO TID 10/18/17 03/09/18 Unknown History Levothyroxine (Nf) [Synthroid (Nf)] 200 mcg NGTUBE QAM 10/18/17 03/09/18 Unknown History Liothyronine Sodium [Cytomel] 5 mcg NGTUBE QAM 10/18/17 03/09/18 10/30/17 History OXcarbazepine [Trileptal] 900 mg NGTUBE BID 10/18/17 03/09/18 Unknown History Valproic Acid (As Sodium Salt) 20 ml NGTUBE Q12H 10/18/17 03/09/18 Unknown History [Depakene] amLODIPine [Norvasc] 10 mg NGTUBE DAILY 10/18/17 03/09/18 Unknown History levETIRAcetam [Keppra TAB] 1,000 mg NGTUBE BID 10/18/17 03/09/18 Unknown History Insulin Aspart [NovoLOG Flexpen] See Protocol SQ Q6H 30 Days 10/26/17 03/09/18 Unknown Rx insuln.pen Insulin NPH/Regular [NovoLIN 70/30] 18 unit SQ BIDDIAB 30 Days ml 10/26/17 03/09/18 Unknown Rx hydrALAZINE [Apresoline TAB] 25 mg PO Q8HR #90 tablet 10/26/17 03/09/18 Unknown Rx Polyethylene Glycol 3350 [Miralax 17 gm PO BID #30 packet 11/10/17 03/09/18 Unknown Rx 3350] Sennosides/Docusate [Senokot S] 1 tab PO Q12HR #30 tablet 11/10/17 03/09/18 Unknown Rx cloNIDine-TTS PATCH [Catapres-Tts 0.3 mg TD QWEEK patch 03/12/18 Unknown Rx 0.3mg Patch] Active Medications: Generic Name Dose Route Start Last Admin Trade Name Freq PRN Reason Stop Dose Admin Acetaminophen 650 mg 01/21/19 02:23 01/21/19 03:59 Tylenol PO 650 mg Q6H PRN Administration Fever > 101 Dextrose 50 ml 01/19/19 16:42 01/21/19 16:53 D50w (25gm) Syringe IV 50 ml PRN PRN Administration Hypoglycemia Famotidine 20 mg 01/20/19 11:00 01/21/19 21:03 Pepcid IV 20 mg BID PRISCA Administration Hydrocortisone Sodium Succinate 150 mg 01/20/19 22:00 01/22/19 06:07 Solu-Cortef IV 150 mg Q8H PRISCA Administration Ceftriaxone Sodium 1 gm in 50 mls @ 100 mls/hr 01/19/19 16:00 01/21/19 15:46 Rocephin/Ns 1 Gm/50 Ml IV 01/28/19 16:29 100 mls/hr Q24H PRISCA Administration Protocol Dopamine HCl/Dextrose 800 mg in 250 mls @ 4.082 mls/hr 01/19/19 20:00 01/22/19 06:05 Intropin Drip 800 Mg/D5w 250 Ml IV 6 mcg/kg/min TITR PRISCA 12.247 mls/hr Titration Protocol 2 MCG/KG/MIN Epinephrine 8 mg/ Sodium 250 mls @ 3.75 mls/hr 01/20/19 09:00 01/21/19 12:00 Chloride IV 0 mcg/min TITR PRISCA 0 mls/hr Titration Protocol 2 MCG/MIN Vancomycin HCl 1,500 mg/ 530 mls @ 333.333 mls/hr 01/22/19 09:00 Sodium Chloride IV 01/22/19 10:35 ONCE ONE Potassium Chloride 20 meq in 100 mls @ 100 mls/hr 01/22/19 09:00 Kcl 20meq/100ml IV 01/22/19 10:59 Q1H [facility] Insulin Human Lispro 0 unit 01/19/19 18:00 01/22/19 06:08 Humalog SUB-Q Not Given Q6HR [facility] Protocol Levothyroxine Sodium 100 mcg 01/19/19 06:00 01/22/19 06:07 Synthroid IV 100 mcg DAILY@0600 [facility] Administration
[2019-01-22] MEDS: FLAGYL 500 MG/100 ML 500 MG/100 ML BAG IV SCH ×3 (10:28→21:23)
[2019-01-22] MEDS: KCL 20MEQ/100ML 20 MEQ/100 ML BAG IV SCH ×4 (10:28→21:23)
[2019-01-22] MEDS: PEPCID IV SCH ×2 (10:43→21:24)
--- NOTE | 2019-01-22 11:48 | Progress Note ---
Assessment and Plan Patient remains critically ill. He is now in atrial fibrillation with CVR as confirmed by EKG. Will not anticoagulate d/t anemia and thrombocytopenia. Continue current cardiac management. Attempt to wean dopamine. Patient was seen in conjunction with Dr. Mike, who agrees with assessment and plan. - Patient Problems (1) Altered mental status Current Visit: Yes Status: Acute (2) Sepsis Current Visit: Yes Status: Acute (3) Atrial fibrillation Current Visit: Yes Status: Acute (4) Dehydration Current Visit: Yes Status: Acute (5) Anemia Current Visit: No Status: Chronic Qualifiers: Anemia type: unspecified type Qualified Code(s): D64.9 - Anemia, unspecified (6) Hyperkalemia Current Visit: Yes Status: Acute (7) Bradycardia Current Visit: Yes Status: Acute (8) Hyponatremia Current Visit: Yes Status: Acute (9) Hypotension Current Visit: Yes Status: Acute (10) History of CVA (cerebrovascular accident) Current Visit: Yes Status: Acute (11) Hypothyroidism Current Visit: No Status: Chronic (12) Chronic ulcer of sacral region Current Visit: Yes Status: Acute (13) Dysphagia Current Visit: No Status: Acute (14) UTI (urinary tract infection) Current Visit: No Status: Acute Subjective Date of service: 01/22/19 Principal diagnosis: hypoxic/hypercarbic respiratory failure Interval history: Patient remains intubated and unresponsive. Objective Last Vital Signs Temp 98.3 F 01/22/19 08:00 Pulse 85 01/22/19 08:28 Resp 17 01/22/19 06:15 BP 100/64 01/22/19 08:28 Pulse Ox 94 01/22/19 08:28 - Physical Examination Narrative exam: Patient intubated. Withdraws from pain. Now in atrial fibrillation confirmed by EKG. Still on dopamine. General: Appears Well, No Apparent Distress HEENT: Positive: Normocephaly Neck: Positive: neck supple, trachea midline Cardiac: Positive: irregularly irregular Lungs: Positive: Other (Coarse) Neuro: Positive: Other (Withdraws from pain) Abdomen: Positive: Soft, Active Bowel Sounds, Distended. Negative: Tender /Rectal: Normal Prostate, No Masses Skin: Positive: Clear, Wound (open wound to left foot. ). Negative: Rash Musculoskeletal: No Fluid Collection Gait: Normal Gait Extremities: Present: edema (trace nonpitting bilateral edema) - Labs and Meds CBC 01/22/19 Range/Units 04:17 WBC 34.5 H (4.5-11.0) K/mm3 RBC 2.34 L (3.65-5.03) M/mm3 Hgb 7.5 L (11.8-15.2) gm/dl Hct 22.7 L (35.5-45.6) % Plt Count 36 L (140-440) K/mm3 Comprehensive Metabolic Panel 01/21/19 01/22/19 Range/Units 20:00 04:17 Sodium 131 L 131 L (137-145) mmol/L Potassium 3.5 L D 2.9 L* (3.6-5.0) mmol/L Chloride 88.6 L 89.8 L (98-107) mmol/L Carbon Dioxide 27 29 (22-30) mmol/L BUN 32 H 30 H (9-20) mg/dL Creatinine 1.5 1.4 (0.8-1.5) mg/dL Glucose 117 H 94 (75-100) mg/dL Calcium 9.4 8.6 (8.4-10.2) mg/dL - Imaging and Cardiology EKG: image reviewed - Telemetry EKG Rhythm: Atrial Fibrillation AV and intraventricular conduction: intraventricular conducti
[2019-01-22] MEDS: LOPRESSOR IV SCH ×3 (15:42→23:48)
[2019-01-22] MEDS: ROCEPHIN/NS 1 GM/50 ML 1 GM/50 ML BAG IV SCH (17:00)
[2019-01-22 17:26] LABS: BUN/Creatinine Ratio 26; Blood Urea Nitrogen 29 mg/dL (9-20); Calcium 8.4 mg/dL (8.4-10.2); Hemolysis Index 13
[2019-01-23 04:54] LABS: Hematocrit 23.7 % (35.5-45.6); Hemoglobin 7.8 gm/dl (11.8-15.2); Mean Corpuscular HGB Conc 33 % (32-34); Mean Corpuscular Volume 97 fl (84-94); Red Blood Count 2.44 M/mm3 (3.65-5.03); Red Cell Distribution Width 16.2 % (13.2-15.2)
[2019-01-23 05:32] LABS: Platelet Count 22 K/mm3 (140-440)
[2019-01-23] MEDS: FLAGYL 500 MG/100 ML 500 MG/100 ML BAG IV SCH ×3 (05:33→21:42)
[2019-01-23] MEDS: SYNTHROID IV SCH (05:33)
[2019-01-23] MEDS: LOPRESSOR IV SCH ×3 (05:37→18:06)
[2019-01-23 07:24] LABS: Basophils % (Manual) 0 % (0.0-1.8); Eosinophils % (Manual) 0 % (0.0-4.3); Total Cells Counted 100
[2019-01-23 07:35] LABS: Anisocytosis 1+; Dohle Bodies Few; Large Platelets Few; Platelet Estimate Consistent w Auto; Target Cells Few
[2019-01-23] MEDS: HumaLOG SUB-Q SCH ×3 (08:29→18:00)
--- NOTE | 2019-01-23 09:20 | Progress Note ---
Subjective Principal diagnosis: hypoxic/hypercarbic respiratory failure Interval history: Patient was seen today for follow-up on multiple renal related issues blood pressure is stable Receive potassium yesterday low-dose but potassium still remains low today renal function much better Vitals labs intake output medications were reviewed Social history: Reviewed Allergies: Reviewed Family history: Reviewed Physical examination HEENT: Oral mucosa moist no pallor or icterus Neck: Supple no JVD Chest: Bilateral few basilar crackles CVS: Regular rate and rhythm S1 and S2 heard Abdomen: Soft nontender no suprapubic masses no organomegaly appreciable Extremity: Skin appears to have changes of myxedema Musculoskeletal: No joint effusion noted in knees and ankle Neurological: patient is encephalopathic Dermatology: No petechial rashes Psychiatry: No evidence of any agitation and aggression noted Assessment and plan Acute kidney injury: Renal function normalized Hypokalemia: Patient will require replacement with at least 40 mEq of potassium now Repeat BMP again if needed potassium can be given He used to be hyperkalemic before which was treated medically Respiratory failure: Remains intubated Hyponatremia has improved satisfactorily likely this was medication induced, it could have been due to the Depakote and oxcarbazepine, patient also has history of hypothyroidism, Overall prognosis remains guarded to poor due to multiple comorbidities Renal ultrasonogram shows complex left renal cyst unchanged since October 2017, he will need to follow up with urology upon discharge to be arranged by the [facility], History of myxedema coma, metabolic encephalopathy, being followed by neurology Patient noted to be septic with bacteremia, source currently unclear being followed by infectious disease Overall patient is doing well from a renal standpoint, family has been informed about the renal progress We'll continue to follow and make recommendation from renal standpoint Objective - Vital Signs Vital signs: Vital Signs - 12hr 01/22/19 01/22/19 01/22/19 21:30 22:00 22:30 Temperature Pulse Rate 116 H 116 H 116 H Pulse Rate [ From Monitor] Respiratory 18 18 18 Rate Respiratory 18 Rate [ unobtainable] Blood Pressure 156/97 157/102 148/91 O2 Sat by Pulse 96 95 Oximetry 01/22/19 01/22/19 01/22/19 23:00 23:30 23:48 Temperature Pulse Rate 117 H 115 H 116 H Pulse Rate [ From Monitor] Respiratory 18 18 Rate Respiratory Rate [ unobtainable] Blood Pressure 141/86 147/95 147/95 O2 Sat by Pulse 96 92 Oximetry 01/23/19 01/23/19 01/23/19 00:00 00:31 01:00 Temperature 99.0 F Pulse Rate 118 H 106 H 118 H Pulse Rate [ 115 H From Monitor] Respiratory 18 17 18 Rate Respiratory Rate [ unobtainable] Blood Pressure 134/84 119/72 139/97 O2 Sat by Pulse 95 95 96 Oximetry 01/23/19 01/23/19 01/23/19 01:09 01:30 02:01 Temperature Pulse Rate 120 H 87 83 Pulse Rate [ From Monitor] Respiratory 18 18 Rate Respiratory Rate [ unobtainable] Blood Pressure 139/97 148/94 121/69 O2 Sat by Pulse 97 98 96 Oximetry 01/23/19 01/23/19 01/23/19 02:30 03:00 03:27 Temperature Pulse Rate 79 84 67 Pulse Rate [ From Monitor] Respiratory 17 18 Rate Respiratory Rate [ unobtainable] Blood Pressure 127/74 117/71 117/71 O2 Sat by Pulse 96 97 97 Oximetry 01/23/19 01/23/19 01/23/19 03:30 04:00 04:01 Temperature 98.1 F Pulse Rate 69 89 Pulse Rate [ 78 From Monitor] Respiratory 20 18 16 Rate Respiratory Rate [ unobtainable] Blood Pressure 102/55 122/76 O2 Sat by Pulse 97 94 96 Oximetry 01/23/19 01/23/19 01/23/19 04:31 05:01 05:31 Temperature Pulse Rate 92 H 105 H 99 H Pulse Rate [ From Monitor] Respiratory 15 19 18 Rate Respiratory Rate [ unobtainable] Blood Pressure 139/76 172/109 139/61 O2 Sat by Pulse 93 91 96 Oximetry 01/23/19 01/23/19 01/23/19 05:37 06:00 08:00 Temperature 96.8 F L Pulse Rate 84 75 Pulse Rate [ From Monitor] Respiratory 18 Rate Respiratory Rate [ unobtainable] Blood Pressure 139/61 136/74 O2 Sat by Pulse 95 Oximetry 01/23/19 08:30 Temperature Pulse Rate 82 Pulse Rate [ From Monitor] Respiratory Rate Respiratory Rate [ unobtainable] Blood Pressure 143/77 O2 Sat by Pulse 98 Oximetry - Lab 01/23/19 04:25 01/22/19 16:50 Most recent lab results Calcium 8.4 mg/dL (8.4-10.2) 01/22/19 16:50 Phosphorus 5.90 mg/dL (2.5-4.5) H 01/20/19 Unknown Magnesium 1.90 mg/dL (1.7-2.3) 01/20/19 Unknown Urine Sodium 64 mmol/L 01/21/19 02:50 Medications & Allergies - Medications Allergies/Adverse Reactions: Allergies No Known Allergies Allergy (Verified 01/19/19 08:23) Home Medications: Home Medications Medication Instructions Recorded Confirmed Last Taken Type Baclofen [Lioresal] 5 mg PO TID 10/18/17 03/09/18 Unknown History Levothyroxine (Nf) [Synthroid (Nf)] 200 mcg NGTUBE QAM 10/18/17 03/09/18 Unknown History Liothyronine Sodium [Cytomel] 5 mcg NGTUBE QAM 10/18/17 03/09/18 10/30/17 History OXcarbazepine [Trileptal] 900 mg NGTUBE BID 10/18/17 03/09/18 Unknown History Valproic Acid (As Sodium Salt) 20 ml NGTUBE Q12H 10/18/17 03/09/18 Unknown History [Depakene] amLODIPine [Norvasc] 10 mg NGTUBE DAILY 10/18/17 03/09/18 Unknown History levETIRAcetam [Keppra TAB] 1,000 mg NGTUBE BID 10/18/17 03/09/18 Unknown History Insulin Aspart [NovoLOG Flexpen] See Protocol SQ Q6H 30 Days 10/26/17 03/09/18 Unknown Rx insuln.pen Insulin NPH/Regular [NovoLIN 70/30] 18 unit SQ BIDDIAB 30 Days ml 10/26/17 03/09/18 Unknown Rx hydrALAZINE [Apresoline TAB] 25 mg PO Q8HR #90 tablet 10/26/17 03/09/18 Unknown Rx Polyethylene Glycol 3350 [Miralax 17 gm PO BID #30 packet 11/10/17 03/09/18 Unknown Rx 3350] Sennosides/Docusate [Senokot S] 1 tab PO Q12HR #30 tablet 11/10/17 03/09/18 Unknown Rx cloNIDine-TTS PATCH [Catapres-Tts 0.3 mg TD QWEEK patch 03/12/18 Unknown Rx 0.3mg Patch] Active Medications: Generic Name Dose Route Start Last Admin Trade Name Freq PRN Reason Stop Dose Admin Acetaminophen 650 mg 01/21/19 02:23 01/21/19 03:59 Tylenol PO 650 mg Q6H PRN Administration Fever > 101 Dextrose 50 ml 01/19/19 16:42 01/21/19 16:53 D50w (25gm) Syringe IV 50 ml PRN PRN Administration Hypoglycemia Famotidine 20 mg 01/20/19 11:00 01/22/19 21:24 Pepcid IV 20 mg BID PRISCA Administration Hydrocortisone Sodium Succinate 150 mg 01/20/19 22:00 01/23/19 05:33 Solu-Cortef IV 150 mg Q8H PRISCA Administration Ceftriaxone Sodium 1 gm in 50 mls @ 100 mls/hr 01/19/19 16:00 01/22/19 17:00 Rocephin/Ns 1 Gm/50 Ml IV 01/28/19 16:29 100 mls/hr Q24H PRISCA Administration Protocol Dopamine HCl/Dextrose 800 mg in 250 mls @ 4.082 mls/hr 01/19/19 20:00 01/22/19 10:45 Intropin Drip 800 Mg/D5w 250 Ml IV 0 mcg/kg/min TITR PRISCA 0 mls/hr Titration Protocol 2 MCG/KG/MIN Epinephrine 8 mg/ Sodium 250 mls @ 3.75 mls/hr 01/20/19 09:00 01/21/19 12:00 Chloride IV 0 mcg/min TITR PIRSCA 0 mls/hr Titration Protocol 2 MCG/MIN Metronidazole 500 mg in 100 mls @ 100 mls/hr 01/22/19 10:00 01/23/19 05:33 Flagyl 500 Mg/100 Ml IV 100 mls/hr Q8HR PRISCA Administration Protocol Vancomycin HCl 1,500 mg/ 530 mls @ 333.333 mls/hr 01/23/19 10:00 Sodium Chloride IV Q24HR PRISCA Insulin Human Lispro 0 unit 01/19/19 18:00 01/23/19 08:29 Humalog SUB-Q Not Given Q6HR [facility] Protocol Levothyroxine Sodium 100 mcg 01/19/19 06:00 01/23/19 05:33 Synthroid IV 100 mcg DAILY@0600 PRISCA Administration Metoprolol Tartrate 5 mg 01/22/19 14:00 01/23/19 05:37 Lopressor IV 5 mg Q6HR PRISCA Administration Potassium Chloride 40 meq 01/23/19 09:19 Potassium Chloride FEEDTUBE 01/23/19 09:20 ONCE ONE
[2019-01-23 09:45] LABS: BUN/Creatinine Ratio 28; Blood Urea Nitrogen 36 mg/dL (9-20); Calcium 8.5 mg/dL (8.4-10.2); Hemolysis Index 73
[2019-01-23] MEDS ORDERED: POTASSIUM CHLORIDE FEEDTUBE ONE ×2 (10:00→18:40)
[2019-01-23] MEDS: PEPCID IV SCH ×2 (10:09→21:43)
[2019-01-23] MEDS: VANCOMYCIN 1,500 MG in NACL 0.9% 500 ML 500 ML IV SCH (10:10)
--- NOTE | 2019-01-23 10:28 | Progress Note ---
Assessment and Plan Pt in AFib with CVR today. Cont present cardiac management. Replete lytes PRN. Pt is not currently a candidate for systemic AC in regards to AFib in setting of anemia and thrombocytopenia. The patient has been seen in conjunction with Dr. Mkie who agrees with assessment and plan of care. - Patient Problems (1) Altered mental status Current Visit: Yes Status: Acute (2) Sepsis Current Visit: Yes Status: Acute (3) Atrial fibrillation Current Visit: Yes Status: Acute (4) Dehydration Current Visit: Yes Status: Acute (5) Anemia Current Visit: No Status: Chronic Qualifiers: Anemia type: unspecified type Qualified Code(s): D64.9 - Anemia, unspecified (6) Hyperkalemia Current Visit: Yes Status: Acute (7) Bradycardia Current Visit: Yes Status: Acute (8) Hyponatremia Current Visit: Yes Status: Acute (9) Hypotension Current Visit: Yes Status: Acute (10) History of CVA (cerebrovascular accident) Current Visit: Yes Status: Acute (11) Hypothyroidism Current Visit: No Status: Chronic (12) Chronic ulcer of sacral region Current Visit: Yes Status: Acute (13) Dysphagia Current Visit: No Status: Acute (14) UTI (urinary tract infection) Current Visit: No Status: Acute Subjective Date of service: 01/23/19 Principal diagnosis: hypoxic/hypercarbic respiratory failure Interval history: remains intubated, nonresponsive, weaned off vasopressors currently. in AFib with CVR on tele. Objective Last Vital Signs Temp 96.8 F L 01/23/19 08:00 Pulse 82 01/23/19 09:01 Resp 14 01/23/19 09:01 BP 149/77 01/23/19 09:01 Pulse Ox 96 01/23/19 09:01 - Physical Examination General: Other (intubated, unresponsive) HEENT: Positive: Normocephaly Cardiac: Positive: irregularly irregular, S1/S2 Lungs: Positive: Decreased Breath Sounds, Ventilated Respirations Neuro: Positive: Other (intubated, unresponsive) Abdomen: Positive: Soft, Active Bowel Sounds, Distended. Negative: Tender Skin: Positive: Wound (open wound to left foot. ). Negative: Rash Musculoskeletal: No Fluid Collection Gait: Normal Gait Extremities: Present: edema (trace nonpitting bilateral edema) - Labs and Meds CBC 01/23/19 Range/Units 04:25 WBC 26.4 H (4.5-11.0) K/mm3 RBC 2.44 L (3.65-5.03) M/mm3 Hgb 7.8 L (11.8-15.2) gm/dl Hct 23.7 L (35.5-45.6) % Plt Count 22 L (140-440) K/mm3 Comprehensive Metabolic Panel 01/22/19 01/23/19 Range/Units 16:50 08:39 Sodium 132 L 136 L (137-145) mmol/L Potassium 2.8 L* 3.1 L (3.6-5.0) mmol/L Chloride 92.4 L 94.5 L (98-107) mmol/L Carbon Dioxide 27 26 (22-30) mmol/L BUN 29 H 36 H (9-20) mg/dL Creatinine 1.1 1.3 (0.8-1.5) mg/dL Glucose 92 97 (75-100) mg/dL Calcium 8.4 8.5 (8.4-10.2) mg/dL - Imaging and Cardiology EKG: image reviewed - Telemetry EKG Rhythm: Atrial Fibrillation AV and intraventricular conduction: intraventricular conducti
--- NOTE | 2019-01-23 10:33 | Progress Note ---
Assessment and Plan Severe sepsis with shock probably secondary to UTI Bleeding with severe thrombocytopenia/Possible DIC Hypoxemic respiratory failure Difficult airway,prior trach. See anesthesia,ED notes Symptomatic severe sinus bradycardia.Stabilized Severe hyponatremia. Controlled Severe Hyperkalemia. 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 Still high WBC Continue current ventilatory support Mamadou need to continue with femoral line use plus peripherals. Attempted to switch to either PICC line or midline, but unable to do due to severe trauma cytopenia and bacteremia. Plan is to remove it and no further pressors needed PRBC if Hgb < 7 DVT prophylaxis PPI prophylaxis Currently DO NOT RESUSCITATE CODE STATUS has been signed a record. We'll continue other supportive measures for the moment No family available at this time for case discussion. Reviewed with staff in detail Critical care time was 31 minutes of [id number] evaluation and coordination of care Subjective Date of service: 01/23/19 Principal diagnosis: hypoxic/hypercarbic respiratory failure Interval history: Intubated and poorly responsive Objective Vital Signs - 12hr 01/22/19 01/22/19 01/22/19 23:00 23:30 23:48 Temperature Pulse Rate 117 H 115 H 116 H Pulse Rate [ From Monitor] Respiratory 18 18 Rate Blood Pressure 141/86 147/95 147/95 O2 Sat by Pulse 96 92 Oximetry 01/23/19 01/23/19 01/23/19 00:00 00:31 01:00 Temperature 99.0 F Pulse Rate 118 H 106 H 118 H Pulse Rate [ 115 H From Monitor] Respiratory 18 17 18 Rate Blood Pressure 134/84 119/72 139/97 O2 Sat by Pulse 95 95 96 Oximetry 01/23/19 01/23/19 01/23/19 01:09 01:30 02:01 Temperature Pulse Rate 120 H 87 83 Pulse Rate [ From Monitor] Respiratory 18 18 Rate Blood Pressure 139/97 148/94 121/69 O2 Sat by Pulse 97 98 96 Oximetry 01/23/19 01/23/19 01/23/19 02:30 03:00 03:27 Temperature Pulse Rate 79 84 67 Pulse Rate [ From Monitor] Respiratory 17 18 Rate Blood Pressure 127/74 117/71 117/71 O2 Sat by Pulse 96 97 97 Oximetry 01/23/19 01/23/19 01/23/19 03:30 04:00 04:01 Temperature 98.1 F Pulse Rate 69 89 Pulse Rate [ 78 From Monitor] Respiratory 20 18 16 Rate Blood Pressure 102/55 122/76 O2 Sat by Pulse 97 94 96 Oximetry 01/23/19 01/23/19 01/23/19 04:31 05:01 05:31 Temperature Pulse Rate 92 H 105 H 99 H Pulse Rate [ From Monitor] Respiratory 15 19 18 Rate Blood Pressure 139/76 172/109 139/61 O2 Sat by Pulse 93 91 96 Oximetry 01/23/19 01/23/19 01/23/19 05:37 06:00 06:31 Temperature Pulse Rate 84 75 69 Pulse Rate [ From Monitor] Respiratory 18 11 L Rate Blood Pressure 139/61 136/74 109/65 O2 Sat by Pulse 95 97 Oximetry 01/23/19 01/23/19 01/23/19 07:00 07:31 08:00 Temperature 96.8 F L Pulse Rate 78 86 Pulse Rate [ 84 From Monitor] Respiratory 13 13 18 Rate Blood Pressure 112/63 146/89 O2 Sat by Pulse 97 99 99 Oximetry 01/23/19 01/23/19 01/23/19 08:01 08:30 08:31 Temperature Pulse Rate 81 82 74 Pulse Rate [ From Monitor] Respiratory 28 H 20 Rate Blood Pressure 141/81 143/77 143/77 O2 Sat by Pulse 99 98 98 Oximetry 01/23/19 09:01 Temperature Pulse Rate 82 Pulse Rate [ From Monitor] Respiratory 14 Rate Blood Pressure 149/77 O2 Sat by Pulse 96 Oximetry Constitutional: no acute distress, comatose, other (critically ill) Eyes: non-icteric Neck: no lymphadenopathy, no JVD, other (right IJ in place) Ascultation: Bilateral: diminished breath sounds Cardiovascular: regular rate and rhythm Gastrointestinal: normoactive bowel sounds, other (distended) Extremities: other (right femoral line) Neurologic: unable to assess CBC and BMP: 01/23/19 04:25 01/23/19 16:54 ABG, PT/INR, D-dimer: ABG POC ABG pH 7.488 (7.35-7.45) H 01/23/19 04:55 POC ABG pCO2 37.6 (35-45) 01/23/19 04:55 POC ABG pO2 55 (80-105) L 01/23/19 04:55 POC ABG HCO3 28.5 (22-26 mml/L) 01/23/19 04:55 POC ABG Total CO2 30 (23-27mmol/L) 01/23/19 04:55 POC ABG O2 Sat 91 01/23/19 04:55 PT/INR, D-dimer PT 15.1 Sec. (12.2-14.9) H 01/19/19 Unknown INR 1.12 (0.87-1.13) 01/19/19 Unknown Abnormal lab findings: Abnormal Labs 01/19/19 01/19/19 01/19/19 07:46 07:46 07:46 WBC RBC Hgb Hct MCV MCH RDW Plt Count Seg Neuts % (Manual) Lymphocytes % (Manual) Monocytes % (Manual) Nucleated RBC % Seg Neutrophils # Man Lymphocytes # (Manual) Monocytes # (Manual) PT INR 0.86 L POC ABG pH POC ABG pCO2 POC ABG pO2 Sodium 114 L* Potassium 6.5 H* Chloride 77.4 L Carbon Dioxide BUN 33 H Creatinine Glucose 128 H POC Glucose Lactic Acid 2.50 H* Calcium Phosphorus Direct Bilirubin AST Total Creatine Kinase < 7 L Troponin T C-Reactive Protein Total Protein Albumin TSH Urine WBC (Auto) Crossmatch 01/19/19 01/19/19 01/19/19 07:46 07:48 08:30 WBC 4.2 L RBC 3.07 L Hgb 10.1 L Hct 30.7 L MCV 100 H MCH 33 H RDW 17.4 H Plt Count Seg Neuts % (Manual) 72.0 H Lymphocytes % (Manual) 11.0 L Monocytes % (Manual) 13.0 H Nucleated RBC % 1.0 H Seg Neutrophils # Man Lymphocytes # (Manual) 0.5 L Monocytes # (Manual) PT INR POC ABG pH POC ABG pCO2 POC ABG pO2 Sodium Potassium Chloride Carbon Dioxide BUN Creatinine Glucose POC Glucose Lactic Acid Calcium Phosphorus Direct Bilirubin AST Total Creatine Kinase Troponin T C-Reactive Protein Total Protein Albumin TSH 8.530 H Urine WBC (Auto) > 182.0 H Crossmatch 01/19/19 01/19/19 01/19/19 10:24 10:24 10:24 WBC RBC Hgb Hct MCV MCH RDW Plt Count Seg Neuts % (Manual) Lymphocytes % (Manual) Monocytes % (Manual) Nucleated RBC % Seg Neutrophils # Man Lymphocytes # (Manual) Monocytes # (Manual) PT INR POC ABG pH 7.305 L POC ABG pCO2 46.8 H POC ABG pO2 Sodium Potassium Chloride Carbon Dioxide BUN Creatinine Glucose POC Glucose Lactic Acid 3.20 H* Calcium Phosphorus Direct Bilirubin AST Total Creatine Kinase Troponin T 0.031 H D C-Reactive Protein Total Protein Albumin TSH Urine WBC (Auto) Crossmatch 01/19/19 01/19/19 01/19/19 14:39 15:04 17:00 WBC RBC Hgb Hct MCV MCH RDW Plt Count Seg Neuts % (Manual) Lymphocytes % (Manual) Monocytes % (Manual) Nucleated RBC % Seg Neutrophils # Man Lymphocytes # (Manual) Monocytes # (Manual) PT INR POC ABG pH 7.320 L POC ABG pCO2 POC ABG pO2 58 L Sodium 116 L* 123 L D Potassium 5.7 H Chloride 82.9 L 89.8 L Carbon Dioxide 17 L BUN 31 H 28 H Creatinine Glucose 129 H 135 H POC Glucose Lactic Acid Calcium 8.1 L Phosphorus 4.80 H Direct Bilirubin AST Total Creatine Kinase Troponin T C-Reactive Protein Total Protein Albumin TSH Urine WBC (Auto) Crossmatch 01/19/19 01/19/19 01/19/19 17:00 22:40 Unknown WBC RBC 3.05 L Hgb 10.0 L Hct 30.7 L MCV 101 H MCH 33 H RDW 16.7 H Plt Count Seg Neuts % (Manual) Lymphocytes % (Manual) Monocytes % (Manual) Nucleated RBC % Seg Neutrophils # Man Lymphocytes # (Manual) Monocytes # (Manual) PT 15.1 H INR POC ABG pH POC ABG pCO2 POC ABG pO2 Sodium 121 L Potassium 5.2 H Chloride 86.9 L Carbon Dioxide BUN 30 H Creatinine Glucose POC Glucose Lactic Acid Calcium Phosphorus 5.20 H Direct Bilirubin AST Total Creatine Kinase Troponin T C-Reactive Protein Total Protein Albumin TSH Urine WBC (Auto) Crossmatch 01/20/19 01/20/19 01/20/19 04:20 16:00 17:39 WBC RBC Hgb Hct MCV MCH RDW Plt Count Seg Neuts % (Manual) Lymphocytes % (Manual) Monocytes % (Manual) Nucleated RBC % Seg Neutrophils # Man Lymphocytes # (Manual) Monocytes # (Manual) PT INR POC ABG pH POC ABG pCO2 POC ABG pO2 Sodium 120 L 119 L* Potassium 5.9 H 7.0 H* Chloride 87.0 L 85.7 L Carbon Dioxide 20 L 18 L BUN 31 H 35 H Creatinine 1.9 H Glucose 120 H POC Glucose 40 L Lactic Acid Calcium 8.1 L 8.0 L Phosphorus 5.10 H 5.80 H Direct Bilirubin AST Total Creatine Kinase Troponin T C-Reactive Protein Total Protein Albumin TSH Urine WBC (Auto) Crossmatch 01/20/19 01/20/19 01/21/19 22:33 Unknown 00:18 WBC RBC Hgb Hct MCV MCH RDW Plt Count Seg Neuts % (Manual) Lymphocytes % (Manual) Monocytes % (Manual) Nucleated RBC % Seg Neutrophils # Man Lymphocytes # (Manual) Monocytes # (Manual) PT INR POC ABG pH POC ABG pCO2 POC ABG pO2 Sodium 125 L D 120 L Potassium 6.2 H* 6.2 H* Chloride 87.3 L 85.8 L Carbon Dioxide 17 L BUN 37 H 33 H Creatinine 1.9 H 1.6 H Glucose 71 L POC Glucose 152 H Lactic Acid Calcium 8.1 L Phosphorus 5.90 H Direct Bilirubin AST Total Creatine Kinase Troponin T C-Reactive Protein Total Protein Albumin TSH Urine WBC (Auto) Crossmatch 01/21/19 01/21/19 01/21/19 02:45 02:45 02:45 WBC 18.8 H RBC 2.36 L Hgb 7.6 L Hct 25.1 L MCV 99 H MCH RDW 16.4 H Plt Count 97 L Seg Neuts % (Manual) 29.0 L Lymphocytes % (Manual) 4.0 L Monocytes % (Manual) Nucleated RBC % 5.0 H Seg Neutrophils # Man Lymphocytes # (Manual) 0.8 L Monocytes # (Manual) PT INR POC ABG pH POC ABG pCO2 POC ABG pO2 Sodium 125 L Potassium 5.8 H Chloride 86.9 L Carbon Dioxide BUN 35 H Creatinine 1.9 H Glucose 119 H POC Glucose Lactic Acid Calcium Phosphorus Direct Bilirubin 0.3 H AST 59 H Total Creatine Kinase Troponin T C-Reactive Protein Total Protein 5.7 L Albumin 3.1 L TSH Urine WBC (Auto) Crossmatch 01/21/19 01/21/19 01/21/19 05:26 05:42 06:41 WBC RBC Hgb Hct MCV MCH RDW Plt Count Seg Neuts % (Manual) Lymphocytes % (Manual) Monocytes % (Manual) Nucleated RBC % Seg Neutrophils # Man Lymphocytes # (Manual) Monocytes # (Manual) PT INR POC ABG pH 7.274 L POC ABG pCO2 58.6 H POC ABG pO2 77 L Sodium Potassium Chloride Carbon Dioxide BUN Creatinine Glucose POC Glucose 182 H Lactic Acid Calcium Phosphorus Direct Bilirubin AST Total Creatine Kinase Troponin T C-Reactive Protein Total Protein Albumin TSH Urine WBC (Auto) Crossmatch 01/21/19 01/21/19 01/21/19 12:09 12:41 17:44 WBC RBC Hgb Hct MCV MCH RDW Plt Count Seg Neuts % (Manual) Lymphocytes % (Manual) Monocytes % (Manual) Nucleated RBC % Seg Neutrophils # Man Lymphocytes # (Manual) Monocytes # (Manual) PT INR POC ABG pH POC ABG pCO2 POC ABG pO2 Sodium Potassium Chloride Carbon Dioxide BUN Creatinine Glucose POC Glucose 129 H 174 H Lactic Acid Calcium Phosphorus Direct Bilirubin AST Total Creatine Kinase Troponin T C-Reactive Protein Total Protein Albumin TSH Urine WBC (Auto) Crossmatch See Detail 01/21/19 01/21/19 01/22/19 20:00 23:47 04:17 WBC 34.5 H RBC 2.34 L Hgb 7.5 L Hct 22.7 L MCV 97 H MCH RDW 16.0 H Plt Count 36 L Seg Neuts % (Manual) 77.0 H Lymphocytes % (Manual) 1.0 L Monocytes % (Manual) Nucleated RBC % 1.0 H Seg Neutrophils # Man 26.6 H Lymphocytes # (Manual) 0.3 L Monocytes # (Manual) 1.4 H PT INR POC ABG pH POC ABG pCO2 POC ABG pO2 Sodium 131 L Potassium 3.5 L D Chloride 88.6 L Carbon Dioxide BUN 32 H Creatinine Glucose 117 H POC Glucose 110 H Lactic Acid Calcium Phosphorus Direct Bilirubin AST Total Creatine Kinase Troponin T C-Reactive Protein Total Protein Albumin TSH Urine WBC (Auto) Crossmatch 01/22/19 01/22/19 01/22/19 04:17 04:45 05:16 WBC RBC Hgb Hct MCV MCH RDW Plt Count Seg Neuts % (Manual) Lymphocytes % (Manual) Monocytes % (Manual) Nucleated RBC % Seg Neutrophils # Man Lymphocytes # (Manual) Monocytes # (Manual) PT INR POC ABG pH 7.492 H POC ABG pCO2 POC ABG pO2 64 L Sodium 131 L Potassium 2.9 L* Chloride 89.8 L Carbon Dioxide BUN 30 H Creatinine Glucose POC Glucose 116 H Lactic Acid Calcium Phosphorus Direct Bilirubin AST Total Creatine Kinase Troponin T C-Reactive Protein Total Protein Albumin TSH Urine WBC (Auto) Crossmatch 01/22/19 01/22/19 01/22/19 11:01 12:01 16:50 WBC RBC Hgb Hct MCV MCH RDW Plt Count Seg Neuts % (Manual) Lymphocytes % (Manual) Monocytes % (Manual) Nucleated RBC % Seg Neutrophils # Man Lymphocytes # (Manual) Monocytes # (Manual) PT INR POC ABG pH POC ABG pCO2 POC ABG pO2 Sodium 132 L Potassium 2.8 L* Chloride 92.4 L Carbon Dioxide BUN 29 H Creatinine Glucose POC Glucose 119 H Lactic Acid Calcium Phosphorus Direct Bilirubin AST Total Creatine Kinase Troponin T C-Reactive Protein 24.80 H Total Protein Albumin TSH Urine WBC (Auto) Crossmatch 01/22/19 01/23/19 01/23/19 23:38 04:25 04:55 WBC 26.4 H RBC 2.44 L Hgb 7.8 L Hct 23.7 L MCV 97 H MCH RDW 16.2 H Plt Count 22 L Seg Neuts % (Manual) Lymphocytes % (Manual) 1.0 L Monocytes % (Manual) Nucleated RBC % 11.0 H Seg Neutrophils # Man 0.0 L Lymphocytes # (Manual) 0.0 L Monocytes # (Manual) PT INR POC ABG pH 7.488 H POC ABG pCO2 POC ABG pO2 55 L Sodium Potassium Chloride Carbon Dioxide BUN Creatinine Glucose POC Glucose 111 H Lactic Acid Calcium Phosphorus Direct Bilirubin AST Total Creatine Kinase Troponin T C-Reactive Protein Total Protein Albumin TSH Urine WBC (Auto) Crossmatch 01/23/19 01/23/19 05:42 08:39 WBC RBC Hgb Hct MCV MCH RDW Plt Count Seg Neuts % (Manual) Lymphocytes % (Manual) Monocytes % (Manual) Nucleated RBC % Seg Neutrophils # Man Lymphocytes # (Manual) Monocytes # (Manual) PT INR POC ABG pH POC ABG pCO2 POC ABG pO2 Sodium 136 L Potassium 3.1 L Chloride 94.5 L Carbon Dioxide BUN 36 H Creatinine Glucose POC Glucose 107 H Lactic Acid Calcium Phosphorus Direct Bilirubin AST Total Creatine Kinase Troponin T C-Reactive Protein Total Protein Albumin TSH Urine WBC (Auto) Crossmatch
--- NOTE | 2019-01-23 15:08 | Progress Note ---
Assessment and Plan Assessment and plan: 63 y/o male with history of CVA with residual right sided weakness who was brought from home to the ED due to change in mental state. Per report, not verbal at baseline. Per EMS, patient had HR in the 20's and was given atropine. Brought to the ED and was found to be severely hyponatremic as well as h yperkalemic, hypothermic and hypotensive. Subsequently, patient started bleeding from multiple orifices CXR: IMPRESSION: The endotracheal tube lies in appropriate position Extensive airspace disease in right lung and in left perihilar region, new in comparison to prior examination of earlier in the day. Renal US: IMPRESSION: Nonspecific renal parenchymal disease.Slightly complex left renal cyst which is grossly unchanged since CT dated 10/30/17. Severe sepsis with shock -Worsening Leukocytosis -likely secondary to Klebsiella UTI -On IV antibiotic and dopamine drip -Urine culture positive for Klebsiella pneumoniae. -Blood cultures 1 out of 2 bottles positive for gram positive cocci -ID consulted. Bleeding from multiple orifices/Possible DIC- Thrombocytopenia, ANEMIA -will monitor H/H and coagulation profile=- continues to decline. -Condition guarded with poor prognosis -Low platelet Acute hypoxic and hypercapnic respiratory failure -Status post intubation on mechanical ventilator -Pulmonology following Symptomatic severe sinus bradycardia -Status post multiple doses of atropine -HR improving on epinephrine drip -Cardiology following Severe hyponatremia -Level improving, will monitor -Nephrology following ASHOK, probably vasomotor nephropathy -Creatinine level IMROVING, will monitor level -Renal ultrasound negative for hydronephrosis -Nephrology following Recurrent Hyperkalemia now Hypokalemia -Discussed with Nephrology, they will replace. -We'll continue treatment and monitor potassium level -Nephrology following Acute on chronic metabolic encephalopathy -Likely due to the acute process -Head CT scan pending Anemia of acute loss -IU PRBC ordered, will monitor H/H DM2 -Blood glucose currently stable Hypothyroidism -TSH level elevated but free T4 normal -On a stress dose IV steroid and IV Synthroid by pulmonology History of CVA with residual right sided weakness and non-verbal -Continue supportive care Chronic sacral decubitus ulcers -Wound care nurse consulted Chronic dysphagia status post PEG tube placement -Dietitian consulted dvt/gi PROPHY scd secondary to thromobocytopenia spoke to sister who the patient has lived with for the past 4 years. Hospice being considered but will let us know after family discussion The high probability of a clinically significant, sudden or life threatening deterioration of the [neuro, pulmonary, nephro] system(s) required my full and direct attention, intervention and personal management. The aggregate critical care time was [45] minutes. This time is in addition to time spent performing reported procedures but includes the following: [x] Data Review and interpretation [x] Patient assessment and monitoring of vital signs [x] Documentation [x] Medication orders and management History Interval history: Pateint seen and examined, remains on full ventilatory support, no clinical change Hospitalist Physical - Physical exam Narrative exam: General appearance: Present: mild distress on full MVS - EENT Eyes: Present: PERRL ENT: other (patient is intubated) - Neck Neck: Present: supple - Respiratory Respiratory effort: labored Respiratory: bilateral: rales - Cardiovascular Rhythm: regular (with bradycardia) Heart Sounds: Present: S1 & S2 - Extremities Extremity abnormal: pitting edema (in bilateral upper and lower extremities) - Abdominal General gastrointestinal: distended (firm on palpation), normal bowel sounds - Integumentary Integumentary: Present: erythema (sacral decubitus ulcers) - Neurologic Neurologic: other (patient is unresponsive although sluggishly opens eyes on verbal stimuli) - Constitutional Vitals: Temp Pulse Resp BP Pulse Ox 96.9 F L 73 17 128/81 92 01/23/19 12:00 01/23/19 13:31 01/23/19 13:31 01/23/19 13:31 01/23/19 13:31 General appearance: Present: no acute distress Results - Labs CBC & Chem 7: 01/23/19 04:25 01/23/19 16:54 Labs: Laboratory Last Values WBC 26.4 K/mm3 (4.5-11.0) H 01/23/19 04:25 RBC 2.44 M/mm3 (3.65-5.03) L 01/23/19 04:25 Hgb 7.8 gm/dl (11.8-15.2) L 01/23/19 04:25 Hct 23.7 % (35.5-45.6) L 01/23/19 04:25 MCV 97 fl (84-94) H 01/23/19 04:25 MCH 32 pg (28-32) 01/23/19 04:25 MCHC 33 % (32-34) 01/23/19 04:25 RDW 16.2 % (13.2-15.2) H 01/23/19 04:25 Plt Count 22 K/mm3 (140-440) L 01/23/19 04:25 Lymph % (Auto) Perinatal Instructor 01/19/19 07:48 [place] % (Auto) Perinatal Instructor 01/19/19 07:48 Eos % (Auto) Perinatal Instructor 01/19/19 07:48 Baso % (Auto) Perinatal Instructor 01/19/19 07:48 Lymph # Perinatal Instructor 01/19/19 07:48 [place] # Perinatal Instructor 01/19/19 07:48 Eos # Perinatal Instructor 01/19/19 07:48 Baso # Perinatal Instructor 01/19/19 07:48 Add Manual Diff Complete 01/23/19 04:25 Total Counted 100 01/23/19 04:25 Seg Neutrophils % Perinatal Instructor 01/23/19 04:25 Seg Neuts % (Manual) 57.0 % (40.0-70.0) 01/23/19 04:25 Band Neutrophils % 37.0 % 01/23/19 04:25 Lymphocytes % (Manual) 1.0 % (13.4-35.0) L 01/23/19 04:25 Reactive Lymphs % (Man) 0 % 01/23/19 04:25 Monocytes % (Manual) 5.0 % (0.0-7.3) 01/23/19 04:25 Eosinophils % (Manual) 0 % (0.0-4.3) 01/23/19 04:25 Basophils % (Manual) 0 % (0.0-1.8) 01/23/19 04:25 Metamyelocytes % 0 % 01/23/19 04:25 Myelocytes % 0 % 01/23/19 04:25 Promyelocytes % 0 % 01/23/19 04:25 Blast Cells % 0 % 01/23/19 04:25 Nucleated RBC % 11.0 % (0.0-0.9) H 01/23/19 04:25 Seg Neutrophils # Perinatal Instructor 01/19/19 07:48 Seg Neutrophils # Man 0.0 K/mm3 (1.8-7.7) L 01/23/19 04:25 Band Neutrophils # 0.0 K/mm3 01/23/19 04:25 Lymphocytes # (Manual) 0.0 K/mm3 (1.2-5.4) L 01/23/19 04:25 Abs React Lymphs (Man) 0.0 K/mm3 01/23/19 04:25 Monocytes # (Manual) 0.0 K/mm3 (0.0-0.8) 01/23/19 04:25 Eosinophils # (Manual) 0.0 K/mm3 (0.0-0.4) 01/23/19 04:25 Basophils # (Manual) 0.0 K/mm3 (0.0-0.1) 01/23/19 04:25 Metamyelocytes # 0.0 K/mm3 01/23/19 04:25 Myelocytes # 0.0 K/mm3 01/23/19 04:25 Promyelocytes # 0.0 K/mm3 01/23/19 04:25 Blast Cells # 0.0 K/mm3 01/23/19 04:25 WBC Morphology Not Reportable 01/23/19 04:25 Hypersegmented Neuts Not Reportable 01/23/19 04:25 Hyposegmented Neuts Not Reportable 01/23/19 04:25 Hypogranular Neuts Not Reportable 01/23/19 04:25 Smudge Cells Not Reportable 01/23/19 04:25 Toxic Granulation Not Reportable 01/23/19 04:25 Toxic Vacuolation Not Reportable 01/23/19 04:25 Dohle Bodies Few 01/23/19 04:25 Pelger-Huet Anomaly Not Reportable 01/23/19 04:25 Kaitlyn Rods Not Reportable 01/23/19 04:25 Platelet Estimate Consistent w auto 01/23/19 04:25 Clumped Platelets Not Reportable 01/23/19 04:25 Plt Clumps, EDTA Not Reportable 01/23/19 04:25 Large Platelets Few 01/23/19 04:25 Giant Platelets Not Reportable 01/23/19 04:25 Platelet Satelliting Not Reportable 01/23/19 04:25 Plt Morphology Comment Not Reportable 01/23/19 04:25 RBC Morphology Not Reportable 01/23/19 04:25 Dimorphic RBCs Not Reportable 01/23/19 04:25 Polychromasia Not Reportable 01/23/19 04:25 Hypochromasia Not Reportable 01/23/19 04:25 Poikilocytosis Not Reportable 01/23/19 04:25 Anisocytosis 1+ 01/23/19 04:25 Microcytosis Not Reportable 01/23/19 04:25 Macrocytosis Not Reportable 01/23/19 04:25 Spherocytes Not Reportable 01/23/19 04:25 Pappenheimer Bodies Not Reportable 01/23/19 04:25 Sickle Cells Not Reportable 01/23/19 04:25 Target Cells Few 01/23/19 04:25 Tear Drop Cells Not Reportable 01/23/19 04:25 Ovalocytes Not Reportable 01/23/19 04:25 Helmet Cells Not Reportable 01/23/19 04:25 Lo-[place] Bodies Not Reportable 01/23/19 04:25 [place] Rings Not Reportable 01/23/19 04:25 Gregory Cells Not Reportable 01/23/19 04:25 Bite Cells Not Reportable 01/23/19 04:25 Crenated Cell Not Reportable 01/23/19 04:25 Elliptocytes Not Reportable 01/23/19 04:25 Acanthocytes (Spur) Not Reportable 01/23/19 04:25 Rouleaux Not Reportable 01/23/19 04:25 Hemoglobin C Crystals Not Reportable 01/23/19 04:25 Schistocytes Not Reportable 01/23/19 04:25 Malaria parasites Not Reportable 01/23/19 04:25 Dionisio Bodies Not Reportable 01/23/19 04:25 Hem Pathologist Commnt No 01/23/19 04:25 PT 15.1 Sec. (12.2-14.9) H 01/19/19 Unknown INR 1.12 (0.87-1.13) 01/19/19 Unknown APTT 33.5 Sec. (24.2-36.6) 01/19/19 Unknown POC ABG pH 7.488 (7.35-7.45) H 01/23/19 04:55 POC ABG pCO2 37.6 (35-45) 01/23/19 04:55 POC ABG pO2 55 (80-105) L 01/23/19 04:55 POC ABG HCO3 28.5 (22-26 mml/L) 01/23/19 04:55 POC ABG Total CO2 30 (23-27mmol/L) 01/23/19 04:55 POC ABG O2 Sat 91 01/23/19 04:55 POC ABG Base Excess 5 ((-2) - (+3)mmol/L) 01/23/19 04:55 FiO2 45 % 01/23/19 04:55 Sodium 136 mmol/L (137-145) L 01/23/19 08:39 Potassium 3.1 mmol/L (3.6-5.0) L 01/23/19 08:39 Chloride 94.5 mmol/L (98-107) L 01/23/19 08:39 Carbon Dioxide 26 mmol/L (22-30) 01/23/19 08:39 Anion Gap 19 mmol/L 01/23/19 08:39 BUN 36 mg/dL (9-20) H 01/23/19 08:39 Creatinine 1.3 mg/dL (0.8-1.5) 01/23/19 08:39 Estimated GFR > 60 ml/min 01/23/19 08:39 BUN/Creatinine Ratio 28 % 01/23/19 08:39 Glucose 97 mg/dL (75-100) 01/23/19 08:39 POC Glucose 108 (70-105) H 01/23/19 12:08 Osmolality 268 Mosm/kg 01/20/19 17:52 Lactic Acid 3.20 mmol/L (0.7-2.0) H* 01/19/19 10:24 Uric Acid 5.3 mg/dL (3.5-7.6) 01/20/19 17:52 Calcium 8.5 mg/dL (8.4-10.2) 01/23/19 08:39 Phosphorus 5.90 mg/dL (2.5-4.5) H 01/20/19 Unknown Magnesium 1.90 mg/dL (1.7-2.3) 01/20/19 Unknown Total Bilirubin 0.40 mg/dL (0.1-1.2) 01/21/19 02:45 Direct Bilirubin 0.3 mg/dL (0-0.2) H 01/21/19 02:45 Indirect Bilirubin 0.1 mg/dL 01/21/19 02:45 AST 59 units/L (5-40) H 01/21/19 02:45 ALT 28 units/L (7-56) 01/21/19 02:45 Alkaline Phosphatase 91 units/L (35-129) 01/21/19 02:45 Ammonia 34.0 umol/L (25-60) 01/19/19 07:48 Total Creatine Kinase < 7 units/L (55-170) L 01/19/19 07:46 Troponin T 0.031 ng/mL (0.00-0.029) H D 01/19/19 10:24 C-Reactive Protein 24.80 mg/dL (0.00-1.30) H 01/22/19 11:01 Total Protein 5.7 g/dL (6.3-8.2) L 01/21/19 02:45 Albumin 3.1 g/dL (3.9-5) L 01/21/19 02:45 Albumin/Globulin Ratio 1.2 % 01/21/19 02:45 Triglycerides 78 mg/dL (2-149) 01/19/19 10:24 Cholesterol 130 mg/dL (50-199) 01/19/19 10:24 LDL Cholesterol Direct 71 mg/dL (50-130) 01/19/19 10:24 HDL Cholesterol 53 mg/dL (40-59) 01/19/19 10:24 Cholesterol/HDL Ratio 2.45 % 01/19/19 10:24 TSH 8.530 mlU/mL (0.270-4.200) H 01/19/19 07:46 Free T4 0.92 ng/dL (0.76-1.46) 01/19/19 14:39 Urine Color Yellow (Yellow) 01/19/19 08:30 Urine Turbidity Turbid (Clear) 01/19/19 08:30 Urine pH 5.0 (5.0-7.0) 01/19/19 08:30 Ur Specific [place] 1.020 (1.003-1.030) 01/19/19 08:30 Urine Protein 100 mg/dl mg/dL (Negative) 01/19/19 08:30 Urine Glucose (UA) Neg mg/dL (Negative) 01/19/19 08:30 Urine Ketones Neg mg/dL (Negative) 01/19/19 08:30 Urine Blood Sm (Negative) 01/19/19 08:30 Urine Nitrite Neg (Negative) 01/19/19 08:30 Urine Bilirubin Sm (Negative) 01/19/19 08:30 Urine Ictotest Negative (Negative) 01/19/19 08:30 Urine Urobilinogen < 2.0 mg/dL (<2.0) 01/19/19 08:30 Ur Leukocyte Esterase Mod (Negative) 01/19/19 08:30 Urine WBC (Auto) > 182.0 /HPF (0.0-6.0) H 01/19/19 08:30 Urine RBC (Auto) 134.0 /HPF (0.0-6.0) 01/19/19 08:30 Urine Bacteria (Auto) 4+ /HPF (Negative) 01/19/19 08:30 Urine WBC Clumps 3+ /HPF 01/19/19 08:30 Ur Transition Epith Cell 6 /HPF 01/19/19 08:30 Amorphous Crystals 2+ 01/19/19 08:30 Urine Osmolality 225 Mosm/kg 01/21/19 02:50 Urine Sodium 64 mmol/L 01/21/19 02:50 Urine Potassium 31.83 mmol/L 01/21/19 02:50 Blood Type O POSITIVE 01/21/19 12:09 Antibody Screen Negative 01/21/19 12:09 Crossmatch See Detail 01/21/19 12:09 Active Medications - Current Medications Current Medications: Generic Name Dose Route Start Last Admin Trade Name Freq PRN Reason Stop Dose Admin Acetaminophen 650 mg 01/21/19 02:23 01/21/19 03:59 Tylenol PO 650 mg Q6H PRN Administration Fever > 101 Dextrose 50 ml 01/19/19 16:42 01/21/19 16:53 D50w (25gm) Syringe IV 50 ml PRN PRN Administration Hypoglycemia Famotidine 20 mg 01/20/19 11:00 01/23/19 10:09 Pepcid IV 20 mg BID PRISCA Administration Hydrocortisone Sodium Succinate 150 mg 01/20/19 22:00 01/23/19 13:03 Solu-Cortef IV 150 mg Q8H PRISCA Administration Ceftriaxone Sodium 1 gm in 50 mls @ 100 mls/hr 01/19/19 16:00 01/22/19 17:00 Rocephin/Ns 1 Gm/50 Ml IV 01/28/19 16:29 100 mls/hr Q24H PRISCA Administration Protocol Dopamine HCl/Dextrose 800 mg in 250 mls @ 4.082 mls/hr 01/19/19 20:00 01/22/19 10:45 Intropin Drip 800 Mg/D5w 250 Ml IV 0 mcg/kg/min TITR PRISCA 0 mls/hr Titration Protocol 2 MCG/KG/MIN Epinephrine 8 mg/ Sodium 250 mls @ 3.75 mls/hr 01/20/19 09:00 01/21/19 12:00 Chloride IV 0 mcg/min TITR PRISCA 0 mls/hr Titration Protocol 2 MCG/MIN Metronidazole 500 mg in 100 mls @ 100 mls/hr 01/22/19 10:00 01/23/19 13:03 Flagyl 500 Mg/100 Ml IV 100 mls/hr Q8HR PRISCA Administration Protocol Vancomycin HCl 1,500 mg/ 530 mls @ 333.333 mls/hr 01/23/19 10:00 01/23/19 10:10 Sodium Chloride IV 333.333 mls/hr Q24HR PRISCA Administration Insulin Human Lispro 0 unit 01/19/19 18:00 01/23/19 12:53 Humalog SUB-Q Not Given Q6HR PRISCA Protocol Levothyroxine Sodium 100 mcg 01/19/19 06:00 01/23/19 05:33 Synthroid IV 100 mcg DAILY@0600 PRISCA Administration Metoprolol Tartrate 5 mg 01/22/19 14:00 01/23/19 12:52 Lopressor IV 5 mg Q6HR PRISCA Administration Nutrition/Malnutrition Assess - Dietary Evaluation Nutrition/Malnutrition Findings: Nutrition Notes Start: 01/20/19 12:26 Freq: Status: Active Protocol: Document 01/23/19 10:31 EB (Rec: 01/23/19 10:34 [id number]) Co-Sign 01/23/19 10:31 LP Nutrition Notes Initial or Follow up Reassessment Current Diagnosis Decubitus(Pressure Ulcer), Diabetes,Sepsis,Hypertension, Stroke,Hyperlipidemia Other Pertinent Diagnosis AMS, Bradycardia Current Diet No diet ordered Labs/Tests Na 136 K 3.1 BUN 3 Pertinent Medications Dopamine gtt, Epinephrine gtt, SoluCortef Height 5 ft 11 in Weight 100.6 kg [place] Body Weight (kg) 78.18 BMI 30.9 Weight Status Obese Subjective/Other Information Following for pt stability and TF consult once pt is appropriate for feeding. Pt continues instability and is awating MD order for TF. Percent of energy/protein needs met: 0%/0% Burn Absent Trauma Absent Current % PO Negligible #2 Nutrition Diagnosis Malnutrition Diagnosis Progress(for reassessment Continues documentation) #1 Nutrition Diagnosis Inadequate oral intake Diagnosis Progress(for reassessment Continues documentation) Is patient on ventilator? Yes Is Patient Ambulatory and/or Out of Bed No REE-([facility]-confined to bed) 2180.784 Kcal/Kg value to use for calculation 17 Approximate Energy Requirements Using 1710 kcal/Kg Calculation Used for Recommendations Kcal/kg Additional Notes Pro needs 2g/kgIBW: 156g/day Fluid needs 1ml/kcal Nutrition Intervention Nutrition Support: Start EN support when medically feasible Goal #1 Start EN support to meet nutrient needs Anticipated Discharge Needs: Continue EN support Follow-Up By: 01/27/19 Additional Comments F/U: TF consult - Attestation Statement I have reviewed and agreed w/ Malnutrition eval & tx plan: Yes
[2019-01-23] MEDS: ROCEPHIN/NS 1 GM/50 ML 1 GM/50 ML BAG IV SCH (15:58)
[2019-01-23 17:25] LABS: BUN/Creatinine Ratio 28; Blood Urea Nitrogen 39 mg/dL (9-20); Calcium 8.5 mg/dL (8.4-10.2); Hemolysis Index 36
--- NOTE | 2019-01-23 22:06 | Progress Note ---
Assessment and Plan Cultures: Blood culture 01/19/2019 Enterococcus faecalis 2 of 4 bottles and MDR Pseudomonas 1 of 4 bottles Urine culture 01/19/2019 Klebsiella. 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 Per , he is contracted and non verbal at baseline but then she noted cold temperature, worsening sleepiness and wheezing for 2-3 days: 1) Shock likely mixed cardiogenic due to symptomatic bradycardia +/- ?mixedema coma +/- septic: Present on admission, manifested by fever, bradycardia, hypotension, bandemia, increased lactate. Septic etiology most likely Enterococcus bacteremia +/- Klebsiella UTI +/- pneumonia. Currently on dopamine gtt and ceftriaxone. 2) Enterococcus and MDR Pseudomonas bacteremia: unclear source, ?lung; should rule out endocarditis. 3) Klebsiella UTI: UA 185 wbc, LE moderate. Urine culture 01/19/2019 Klebsiella 4) Pneumonia: likely aspiration pneumonia. CXR showed extensive airspace disease in right lung and in left perihilar region, new in comparison to prior examination. 5) Acute on chronic encephalopathy: multifactorial from hyponatremia, symptomatic bradycardia and sepsis 6) Uncontrolled hypothyroidism Recommendations: - contact isolation due to MDR Pseudomonas - stop ceftriaxone - start meropenem - continue vancomycin and flagyl for now - follow-up repeat blood cultures, procalcitonin, C-reactive protein (CRP) - TTE to r/o endocarditis Will follow. Gloria Valencia MD Infectious Diseases Occupational Analyst [facility] M [phone] O [phone] Subjective Date of service: 01/23/19 Principal diagnosis: hypoxic/hypercarbic respiratory failure Interval history: Remains intubated no pressors no fever Objective - Exam Narrative Exam: General appearance: intubated in NAD,alert no follows commands Eyes: anicteric sclerae, moist conjunctivae; no lid-lag; PERRLA HENT: Atraumatic; oropharynx +ETT +NGT . Neck: Trachea midline; supple, no thyromegaly or lymphadenopathy Lungs: bilateral loud rhonchi CV: bradycardia Abdomen: Soft, non-tender;+PEG Extremities: bilateral leg edema, right hand edema Skin: Normal temperature, turgor and texture; no rash, ulcers or subcutaneous nodules Psych: no agitated. Neuro: alert no agitated, contracted. Right femoral TLC/klein - Constitutional Vitals: Vital Signs Temp Pulse Resp BP Pulse Ox 98 F 81 18 130/79 97 01/23/19 20:00 01/23/19 20:00 01/23/19 20:00 01/23/19 20:00 01/23/19 20:00 Temperature -Last 24 Hours Temperature 98 F Temperature 96.9 F Temperature 96.9 F Temperature 96.8 F Temperature 98.1 F Temperature 99.0 F - Labs CBC & Chem 7: 01/23/19 04:25 01/23/19 16:54 Labs: Abnormal lab results 01/22/19 01/23/19 01/23/19 Range/Units 23:38 04:25 04:55 WBC 26.4 H (4.5-11.0) K/mm3 RBC 2.44 L (3.65-5.03) M/mm3 Hgb 7.8 L (11.8-15.2) gm/dl Hct 23.7 L (35.5-45.6) % MCV 97 H (84-94) fl RDW 16.2 H (13.2-15.2) % Plt Count 22 L (140-440) K/mm3 Lymphocytes % (Manual) 1.0 L (13.4-35.0) % Nucleated RBC % 11.0 H (0.0-0.9) % Seg Neutrophils # Man 0.0 L (1.8-7.7) K/mm3 Lymphocytes # (Manual) 0.0 L (1.2-5.4) K/mm3 POC ABG pH 7.488 H (7.35-7.45) POC ABG pO2 55 L (80-105) Sodium (137-145) mmol/L Potassium (3.6-5.0) mmol/L Chloride (98-107) mmol/L BUN (9-20) mg/dL Glucose (75-100) mg/dL POC Glucose 111 H (70-105) 01/23/19 01/23/19 01/23/19 Range/Units 05:42 08:39 12:08 WBC (4.5-11.0) K/mm3 RBC (3.65-5.03) M/mm3 Hgb (11.8-15.2) gm/dl Hct (35.5-45.6) % MCV (84-94) fl RDW (13.2-15.2) % Plt Count (140-440) K/mm3 Lymphocytes % (Manual) (13.4-35.0) % Nucleated RBC % (0.0-0.9) % Seg Neutrophils # Man (1.8-7.7) K/mm3 Lymphocytes # (Manual) (1.2-5.4) K/mm3 POC ABG pH (7.35-7.45) POC ABG pO2 (80-105) Sodium 136 L (137-145) mmol/L Potassium 3.1 L (3.6-5.0) mmol/L Chloride 94.5 L (98-107) mmol/L BUN 36 H (9-20) mg/dL Glucose (75-100) mg/dL POC Glucose 107 H 108 H (70-105) 01/23/19 01/23/19 Range/Units 16:54 18:06 WBC (4.5-11.0) K/mm3 RBC (3.65-5.03) M/mm3 Hgb (11.8-15.2) gm/dl Hct (35.5-45.6) % MCV (84-94) fl RDW (13.2-15.2) % Plt Count (140-440) K/mm3 Lymphocytes % (Manual) (13.4-35.0) % Nucleated RBC % (0.0-0.9) % Seg Neutrophils # Man (1.8-7.7) K/mm3 Lymphocytes # (Manual) (1.2-5.4) K/mm3 POC ABG pH (7.35-7.45) POC ABG pO2 (80-105) Sodium (137-145) mmol/L Potassium 3.2 L (3.6-5.0) mmol/L Chloride 96.9 L (98-107) mmol/L BUN 39 H (9-20) mg/dL Glucose 109 H (75-100) mg/dL POC Glucose 115 H (70-105)
[2019-01-24] MEDS: LOPRESSOR IV SCH ×4 (00:39→17:45)
[2019-01-24] MEDS: SYNTHROID IV SCH ×2 (06:00→06:26)
[2019-01-24] MEDS: FLAGYL 500 MG/100 ML 500 MG/100 ML BAG IV SCH ×3 (06:27→22:51)
[2019-01-24] MEDS: HumaLOG SUB-Q SCH ×4 (06:31→18:18)
[2019-01-24] MEDS: MERREM 1,000 MG in NACL 0.9% 100 ML IV SCH ×3 (08:28→16:35)
--- NOTE | 2019-01-24 08:54 | Progress Note ---
Subjective Principal diagnosis: hypoxic/hypercarbic respiratory failure Interval history: Patient was seen today for follow-up on multiple renal related issues Remains on ventilator, discussed with ICU attending Prognosis is poor Received potassium replacement renal function much better Vitals labs intake output medications were reviewed Social history: Reviewed Allergies: Reviewed Family history: Reviewed Physical examination HEENT: Oral mucosa moist no pallor or icterus Neck: Supple no JVD Chest: Bilateral few basilar crackles CVS: Regular rate and rhythm S1 and S2 heard Abdomen: Soft nontender no suprapubic masses no organomegaly appreciable Extremity: Skin appears to have changes of myxedema Musculoskeletal: No joint effusion noted in knees and ankle Neurological: patient is encephalopathic Dermatology: No petechial rashes Psychiatry: No evidence of any agitation and aggression noted Assessment and plan Acute kidney injury: Renal function has markedly improved with conservative care, creatinine appears to be around 1.4 patient will need IV fluid at least for next 24 hours in the form of lactated Ringer's Hypokalemia: Continue to monitor carefully replacement of potassium as required Severe hyperkalemia: Potassium was up to 7.0 which was treated conservatively family did not wanted any dialysis. Respiratory failure currently intubated, ventilator settings reviewed FiO2 satisfactory Hypotension, mostly resulting from sepsis-like picture currently being followed by infectious disease History of myxedema coma patient's baseline functional status is very poor, family is aware of this Noted to have enterococcus and [id number] Pseudomonas bacteremia of unclear source, Klebsiella UTI and pneumonia: Followed by infectious disease Prognosis is very poor in his case this has been discussed with patient's family as well as power of senior trial attorney Anemia, multifactorial received packed red blood cell transfusion Severe hyponatremia that was multifactorial partly medication related currently normalized, urine sodium was high 64 likely medication induced Overall stable from renal standpoint but long-term prognosis and mortality appears to be high in my opinion, Renal ultrasonogram shows complex left renal cyst unchanged since October 2017, he will need to follow up with urology upon discharge to be arranged by the [facility] medicine health permitting, History of myxedema coma, metabolic encephalopathy, being followed by neurology Patient noted to be septic with bacteremia, source currently unclear being followed by infectious disease Overall patient is doing well from a renal standpoint, family has been informed about the renal progress also has been informed that s very poor We'll continue to follow and make recommendation from renal standpoint Objective - Vital Signs Vital signs: Vital Signs - 12hr 01/23/19 01/23/19 01/23/19 21:00 21:30 22:00 Temperature Pulse Rate 82 93 H 83 Pulse Rate [ From Monitor] Respiratory 20 15 26 H Rate Respiratory 18 Rate [ unobtainable] Blood Pressure 125/80 125/80 139/82 O2 Sat by Pulse 97 98 90 Oximetry 01/23/19 01/23/19 01/23/19 22:14 22:30 23:00 Temperature Pulse Rate 82 75 79 Pulse Rate [ From Monitor] Respiratory 12 14 11 L Rate Respiratory Rate [ unobtainable] Blood Pressure 139/82 128/78 138/75 O2 Sat by Pulse 91 94 93 Oximetry 01/23/19 01/23/19 01/23/19 23:11 23:23 23:30 Temperature 98.9 F Pulse Rate 70 77 Pulse Rate [ From Monitor] Respiratory 17 Rate Respiratory Rate [ unobtainable] Blood Pressure 138/75 143/78 O2 Sat by Pulse 94 93 Oximetry 01/24/19 01/24/19 01/24/19 00:00 00:30 00:39 Temperature Pulse Rate 69 70 112 H Pulse Rate [ 81 From Monitor] Respiratory 18 13 Rate Respiratory Rate [ unobtainable] Blood Pressure 132/80 141/86 134/67 O2 Sat by Pulse 97 94 Oximetry 01/24/19 01/24/19 01/24/19 01:00 01:30 02:00 Temperature Pulse Rate 77 63 76 Pulse Rate [ From Monitor] Respiratory 15 25 H 16 Rate Respiratory Rate [ unobtainable] Blood Pressure 138/94 140/75 132/85 O2 Sat by Pulse 94 93 91 Oximetry 01/24/19 01/24/19 01/24/19 02:30 03:00 03:08 Temperature Pulse Rate 79 75 70 Pulse Rate [ From Monitor] Respiratory 17 18 Rate Respiratory Rate [ unobtainable] Blood Pressure 148/85 141/79 141/79 O2 Sat by Pulse 91 93 94 Oximetry 01/24/19 01/24/19 01/24/19 03:21 03:30 04:00 Temperature 98.2 F Pulse Rate 80 69 Pulse Rate [ 81 From Monitor] Respiratory 16 16 Rate Respiratory Rate [ unobtainable] Blood Pressure 139/76 135/83 O2 Sat by Pulse 95 94 Oximetry 05/03/19 05/03/19 05/03/19 04:30 05:00 05:30 Temperature Pulse Rate 72 69 71 Pulse Rate [ From Monitor] Respiratory 18 16 16 Rate Respiratory Rate [ unobtainable] Blood Pressure 144/78 137/82 144/84 O2 Sat by Pulse 95 96 94 Oximetry 01/24/19 01/24/19 01/24/19 06:00 07:57 08:21 Temperature 97.5 F L Pulse Rate 74 87 Pulse Rate [ From Monitor] Respiratory 14 Rate Respiratory Rate [ unobtainable] Blood Pressure 135/86 151/92 O2 Sat by Pulse 95 92 Oximetry - Lab 01/23/19 04:25 01/23/19 16:54 Most recent lab results Calcium 8.5 mg/dL (8.4-10.2) 01/23/19 16:54 Phosphorus 5.90 mg/dL (2.5-4.5) H 01/20/19 Unknown Magnesium 1.90 mg/dL (1.7-2.3) 01/20/19 Unknown Urine Sodium 64 mmol/L 01/21/19 02:50 Medications & Allergies - Medications Allergies/Adverse Reactions: Allergies No Known Allergies Allergy (Verified 01/19/19 08:23) Home Medications: Home Medications Medication Instructions Recorded Confirmed Last Taken Type Baclofen [Lioresal] 20 mg PO TID 10/18/17 01/24/19 Unknown History Levothyroxine (Nf) [Synthroid (Nf)] 200 mcg NGTUBE QAM 10/18/17 01/24/19 Unknown History Liothyronine Sodium [Cytomel] 15 mcg NGTUBE QAM 10/18/17 01/24/19 10/30/17 History OXcarbazepine [Trileptal] 900 mg NGTUBE BID 10/18/17 01/24/19 Unknown History Valproic Acid (As Sodium Salt) 20 ml NGTUBE Q12H 10/18/17 01/24/19 Unknown History [Depakene] amLODIPine [Norvasc] 10 mg NGTUBE DAILY 10/18/17 01/24/19 Unknown History levETIRAcetam [Keppra TAB] 1,000 mg NGTUBE BID 10/18/17 01/24/19 Unknown History Insulin Aspart [NovoLOG Flexpen] See Protocol SQ Q6H 30 Days 10/26/17 01/24/19 Unknown Rx insuln.pen hydrALAZINE [Apresoline TAB] 25 mg PO Q8HR #90 tablet 10/26/17 01/24/19 Unknown Rx Polyethylene Glycol 3350 [Miralax 17 gm PO BID #30 packet 11/10/17 01/24/19 Unknown Rx 3350] Insulin NPH/Regular [NovoLIN 70/30] 15 unit SQ BIDDIAB 01/24/19 01/24/19 Unknown History Active Medications: Generic Name Dose Route Start Last Admin Trade Name Freq PRN Reason Stop Dose Admin Acetaminophen 650 mg 01/21/19 02:23 01/21/19 03:59 Tylenol PO 650 mg Q6H PRN Administration Fever > 101 Dextrose 50 ml 01/19/19 16:42 01/21/19 16:53 D50w (25gm) Syringe IV 50 ml PRN PRN Administration Hypoglycemia Famotidine 20 mg 01/20/19 11:00 01/23/19 21:43 Pepcid IV 20 mg BID PRISCA Administration Hydrocortisone Sodium Succinate 150 mg 01/20/19 22:00 01/24/19 06:00 Solu-Cortef IV 150 mg Q8H PRISCA Administration Dopamine HCl/Dextrose 800 mg in 250 mls @ 4.082 mls/hr 01/19/19 20:00 01/22/19 10:45 Intropin Drip 800 Mg/D5w 250 Ml IV 0 mcg/kg/min TITR PRISCA 0 mls/hr Titration Protocol 2 MCG/KG/MIN Epinephrine 8 mg/ Sodium 250 mls @ 3.75 mls/hr 01/20/19 09:00 01/21/19 12:00 Chloride IV 0 mcg/min TITR PRISCA 0 mls/hr Titration Protocol 2 MCG/MIN Metronidazole 500 mg in 100 mls @ 100 mls/hr 01/22/19 10:00 01/24/19 06:27 Flagyl 500 Mg/100 Ml IV 100 mls/hr Q8HR PRISCA Administration Protocol Vancomycin HCl 1,500 mg/ 530 mls @ 333.333 mls/hr 01/23/19 10:00 01/23/19 10:10 Sodium Chloride IV 333.333 mls/hr Q24HR PRISCA Administration Meropenem 1,000 mg/ Sodium 100 mls @ 100 mls/hr 01/24/19 00:00 01/24/19 08:28 Chloride IV 100 mls/hr Q8H PRISCA Administration Protocol Potassium Chloride 20 meq/ 1,010 mls @ 125 mls/hr 01/24/19 09:00 Lactated Ringer's IV DIRECT PRISCA Insulin Human Lispro 0 unit 01/19/19 18:00 01/24/19 06:32 Humalog SUB-Q Not Given Q6HR [facility] Protocol Levothyroxine Sodium 100 mcg 01/19/19 06:00 01/24/19 06:26 Synthroid IV 100 mcg DAILY@0600 PRISCA Administration Metoprolol Tartrate 5 mg 01/22/19 14:00 01/24/19 06:00 Lopressor IV 5 mg Q6HR PRISCA Administration
--- NOTE | 2019-01-24 08:57 | Progress Note ---
Assessment and Plan Severe sepsis with shock-bacteremia with UTI, possible gram- negative/Klebsiella/Pseudomonas/enterococcal pneumonia Bleeding with severe thrombocytopenia/Possible DIC Hypoxemic respiratory failure Difficult airway,prior trach. 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 See follow-up ID recommendations If not on pressor remove femoral catheter today? Have to secure additional peripheral line, PICC team could not initiate lines per hospital protocol Currently DO NOT RESUSCITATE CODE STATUS has been signed a record. We'll continue other supportive measures for the moment No family available at this time for case discussion. We'll also advise to update hospice discussion with the family (I will be happy to talk to them today on the phone if needed) and plans for additional care. Mostly bedridden previously, according to my discussion with nephrology with limited quality of life. Reviewed with staff in detail Critical care time was 31 minutes of [id number] evaluation and coordination of care Subjective Date of service: 01/24/19 Principal diagnosis: hypoxic/hypercarbic respiratory failure Interval history: Intubated and poorly responsive Objective Vital Signs - 12hr 01/23/19 01/23/19 01/23/19 21:00 21:30 22:00 Temperature Pulse Rate 82 93 H 83 Pulse Rate [ From Monitor] Respiratory 20 15 26 H Rate Respiratory 18 Rate [ unobtainable] Blood Pressure 125/80 125/80 139/82 O2 Sat by Pulse 97 98 90 Oximetry 01/23/19 01/23/19 01/23/19 22:14 22:30 23:00 Temperature Pulse Rate 82 75 79 Pulse Rate [ From Monitor] Respiratory 12 14 11 L Rate Respiratory Rate [ unobtainable] Blood Pressure 139/82 128/78 138/75 O2 Sat by Pulse 91 94 93 Oximetry 01/23/19 01/23/19 01/23/19 23:11 23:23 23:30 Temperature 98.9 F Pulse Rate 70 77 Pulse Rate [ From Monitor] Respiratory 17 Rate Respiratory Rate [ unobtainable] Blood Pressure 138/75 143/78 O2 Sat by Pulse 94 93 Oximetry 01/24/19 01/24/19 01/24/19 00:00 00:30 00:39 Temperature Pulse Rate 69 70 112 H Pulse Rate [ 81 From Monitor] Respiratory 18 13 Rate Respiratory Rate [ unobtainable] Blood Pressure 132/80 141/86 134/67 O2 Sat by Pulse 97 94 Oximetry 01/24/19 01/24/19 01/24/19 01:00 01:30 02:00 Temperature Pulse Rate 77 63 76 Pulse Rate [ From Monitor] Respiratory 15 25 H 16 Rate Respiratory Rate [ unobtainable] Blood Pressure 138/94 140/75 132/85 O2 Sat by Pulse 94 93 91 Oximetry 01/24/19 01/24/19 01/24/19 02:30 03:00 03:08 Temperature Pulse Rate 79 75 70 Pulse Rate [ From Monitor] Respiratory 17 18 Rate Respiratory Rate [ unobtainable] Blood Pressure 148/85 141/79 141/79 O2 Sat by Pulse 91 93 94 Oximetry 01/24/19 01/24/19 01/24/19 03:21 03:30 04:00 Temperature 98.2 F Pulse Rate 80 69 Pulse Rate [ 81 From Monitor] Respiratory 16 16 Rate Respiratory Rate [ unobtainable] Blood Pressure 139/76 135/83 O2 Sat by Pulse 95 94 Oximetry 01/24/19 01/24/19 01/24/19 04:30 05:00 05:30 Temperature Pulse Rate 72 69 71 Pulse Rate [ From Monitor] Respiratory 18 16 16 Rate Respiratory Rate [ unobtainable] Blood Pressure 144/78 137/82 144/84 O2 Sat by Pulse 95 96 94 Oximetry 01/24/19 01/24/19 01/24/19 06:00 07:57 08:21 Temperature 97.5 F L Pulse Rate 74 87 Pulse Rate [ From Monitor] Respiratory 14 Rate Respiratory Rate [ unobtainable] Blood Pressure 135/86 151/92 O2 Sat by Pulse 95 92 Oximetry Constitutional: no acute distress, comatose, other (critically ill) Eyes: non-icteric Neck: no lymphadenopathy, no JVD, other (right IJ in place) Ascultation: Bilateral: diminished breath sounds, rales (sporadic) Cardiovascular: regular rate and rhythm Gastrointestinal: normoactive bowel sounds, other (distended) Extremities: other (right femoral line) Neurologic: unable to assess CBC and BMP: 01/23/19 04:25 01/23/19 16:54 ABG, PT/INR, D-dimer: ABG POC ABG pH 7.504 (7.35-7.45) H 01/24/19 03:47 POC ABG pCO2 34.9 (35-45) L 01/24/19 03:47 POC ABG pO2 62 (80-105) L 01/24/19 03:47 POC ABG HCO3 27.4 (22-26 mml/L) 01/24/19 03:47 POC ABG Total CO2 28 (23-27mmol/L) 01/24/19 03:47 POC ABG O2 Sat 94 01/24/19 03:47 PT/INR, D-dimer PT 15.1 Sec. (12.2-14.9) H 01/19/19 Unknown INR 1.12 (0.87-1.13) 01/19/19 Unknown Abnormal lab findings: Abnormal Labs 01/19/19 01/19/19 01/19/19 07:46 07:46 07:46 WBC RBC Hgb Hct MCV MCH RDW Plt Count Seg Neuts % (Manual) Lymphocytes % (Manual) Monocytes % (Manual) Nucleated RBC % Seg Neutrophils # Man Lymphocytes # (Manual) Monocytes # (Manual) PT INR 0.86 L POC ABG pH POC ABG pCO2 POC ABG pO2 Sodium 114 L* Potassium 6.5 H* Chloride 77.4 L Carbon Dioxide BUN 33 H Creatinine Glucose 128 H POC Glucose Lactic Acid 2.50 H* Calcium Phosphorus Direct Bilirubin AST Total Creatine Kinase < 7 L Troponin T C-Reactive Protein Total Protein Albumin TSH Urine WBC (Auto) Crossmatch 01/19/19 01/19/19 01/19/19 07:46 07:48 08:30 WBC 4.2 L RBC 3.07 L Hgb 10.1 L Hct 30.7 L MCV 100 H MCH 33 H RDW 17.4 H Plt Count Seg Neuts % (Manual) 72.0 H Lymphocytes % (Manual) 11.0 L Monocytes % (Manual) 13.0 H Nucleated RBC % 1.0 H Seg Neutrophils # Man Lymphocytes # (Manual) 0.5 L Monocytes # (Manual) PT INR POC ABG pH POC ABG pCO2 POC ABG pO2 Sodium Potassium Chloride Carbon Dioxide BUN Creatinine Glucose POC Glucose Lactic Acid Calcium Phosphorus Direct Bilirubin AST Total Creatine Kinase Troponin T C-Reactive Protein Total Protein Albumin TSH 8.530 H Urine WBC (Auto) > 182.0 H Crossmatch 01/19/19 01/19/19 01/19/19 10:24 10:24 10:24 WBC RBC Hgb Hct MCV MCH RDW Plt Count Seg Neuts % (Manual) Lymphocytes % (Manual) Monocytes % (Manual) Nucleated RBC % Seg Neutrophils # Man Lymphocytes # (Manual) Monocytes # (Manual) PT INR POC ABG pH 7.305 L POC ABG pCO2 46.8 H POC ABG pO2 Sodium Potassium Chloride Carbon Dioxide BUN Creatinine Glucose POC Glucose Lactic Acid 3.20 H* Calcium Phosphorus Direct Bilirubin AST Total Creatine Kinase Troponin T 0.031 H D C-Reactive Protein Total Protein Albumin TSH Urine WBC (Auto) Crossmatch 01/19/19 01/19/19 01/19/19 14:39 15:04 17:00 WBC RBC Hgb Hct MCV MCH RDW Plt Count Seg Neuts % (Manual) Lymphocytes % (Manual) Monocytes % (Manual) Nucleated RBC % Seg Neutrophils # Man Lymphocytes # (Manual) Monocytes # (Manual) PT INR POC ABG pH 7.320 L POC ABG pCO2 POC ABG pO2 58 L Sodium 116 L* 123 L D Potassium 5.7 H Chloride 82.9 L 89.8 L Carbon Dioxide 17 L BUN 31 H 28 H Creatinine Glucose 129 H 135 H POC Glucose Lactic Acid Calcium 8.1 L Phosphorus 4.80 H Direct Bilirubin AST Total Creatine Kinase Troponin T C-Reactive Protein Total Protein Albumin TSH Urine WBC (Auto) Crossmatch 01/19/19 01/19/19 01/19/19 17:00 22:40 Unknown WBC RBC 3.05 L Hgb 10.0 L Hct 30.7 L MCV 101 H MCH 33 H RDW 16.7 H Plt Count Seg Neuts % (Manual) Lymphocytes % (Manual) Monocytes % (Manual) Nucleated RBC % Seg Neutrophils # Man Lymphocytes # (Manual) Monocytes # (Manual) PT 15.1 H INR POC ABG pH POC ABG pCO2 POC ABG pO2 Sodium 121 L Potassium 5.2 H Chloride 86.9 L Carbon Dioxide BUN 30 H Creatinine Glucose POC Glucose Lactic Acid Calcium Phosphorus 5.20 H Direct Bilirubin AST Total Creatine Kinase Troponin T C-Reactive Protein Total Protein Albumin TSH Urine WBC (Auto) Crossmatch 01/20/19 01/20/19 01/20/19 04:20 16:00 17:39 WBC RBC Hgb Hct MCV MCH RDW Plt Count Seg Neuts % (Manual) Lymphocytes % (Manual) Monocytes % (Manual) Nucleated RBC % Seg Neutrophils # Man Lymphocytes # (Manual) Monocytes # (Manual) PT INR POC ABG pH POC ABG pCO2 POC ABG pO2 Sodium 120 L 119 L* Potassium 5.9 H 7.0 H* Chloride 87.0 L 85.7 L Carbon Dioxide 20 L 18 L BUN 31 H 35 H Creatinine 1.9 H Glucose 120 H POC Glucose 40 L Lactic Acid Calcium 8.1 L 8.0 L Phosphorus 5.10 H 5.80 H Direct Bilirubin AST Total Creatine Kinase Troponin T C-Reactive Protein Total Protein Albumin TSH Urine WBC (Auto) Crossmatch 01/20/19 01/20/19 01/21/19 22:33 Unknown 00:18 WBC RBC Hgb Hct MCV MCH RDW Plt Count Seg Neuts % (Manual) Lymphocytes % (Manual) Monocytes % (Manual) Nucleated RBC % Seg Neutrophils # Man Lymphocytes # (Manual) Monocytes # (Manual) PT INR POC ABG pH POC ABG pCO2 POC ABG pO2 Sodium 125 L D 120 L Potassium 6.2 H* 6.2 H* Chloride 87.3 L 85.8 L Carbon Dioxide 17 L BUN 37 H 33 H Creatinine 1.9 H 1.6 H Glucose 71 L POC Glucose 152 H Lactic Acid Calcium 8.1 L Phosphorus 5.90 H Direct Bilirubin AST Total Creatine Kinase Troponin T C-Reactive Protein Total Protein Albumin TSH Urine WBC (Auto) Crossmatch 01/21/19 01/21/19 01/21/19 02:45 02:45 02:45 WBC 18.8 H RBC 2.36 L Hgb 7.6 L Hct 25.1 L MCV 99 H MCH RDW 16.4 H Plt Count 97 L Seg Neuts % (Manual) 29.0 L Lymphocytes % (Manual) 4.0 L Monocytes % (Manual) Nucleated RBC % 5.0 H Seg Neutrophils # Man Lymphocytes # (Manual) 0.8 L Monocytes # (Manual) PT INR POC ABG pH POC ABG pCO2 POC ABG pO2 Sodium 125 L Potassium 5.8 H Chloride 86.9 L Carbon Dioxide BUN 35 H Creatinine 1.9 H Glucose 119 H POC Glucose Lactic Acid Calcium Phosphorus Direct Bilirubin 0.3 H AST 59 H Total Creatine Kinase Troponin T C-Reactive Protein Total Protein 5.7 L Albumin 3.1 L TSH Urine WBC (Auto) Crossmatch 01/21/19 01/21/19 01/21/19 05:26 05:42 06:41 WBC RBC Hgb Hct MCV MCH RDW Plt Count Seg Neuts % (Manual) Lymphocytes % (Manual) Monocytes % (Manual) Nucleated RBC % Seg Neutrophils # Man Lymphocytes # (Manual) Monocytes # (Manual) PT INR POC ABG pH 7.274 L POC ABG pCO2 58.6 H POC ABG pO2 77 L Sodium Potassium Chloride Carbon Dioxide BUN Creatinine Glucose POC Glucose 182 H Lactic Acid Calcium Phosphorus Direct Bilirubin AST Total Creatine Kinase Troponin T C-Reactive Protein Total Protein Albumin TSH Urine WBC (Auto) Crossmatch 01/21/19 01/21/19 01/21/19 12:09 12:41 17:44 WBC RBC Hgb Hct MCV MCH RDW Plt Count Seg Neuts % (Manual) Lymphocytes % (Manual) Monocytes % (Manual) Nucleated RBC % Seg Neutrophils # Man Lymphocytes # (Manual) Monocytes # (Manual) PT INR POC ABG pH POC ABG pCO2 POC ABG pO2 Sodium Potassium Chloride Carbon Dioxide BUN Creatinine Glucose POC Glucose 129 H 174 H Lactic Acid Calcium Phosphorus Direct Bilirubin AST Total Creatine Kinase Troponin T C-Reactive Protein Total Protein Albumin TSH Urine WBC (Auto) Crossmatch See Detail 01/21/19 01/21/19 01/22/19 20:00 23:47 04:17 WBC 34.5 H RBC 2.34 L Hgb 7.5 L Hct 22.7 L MCV 97 H MCH RDW 16.0 H Plt Count 36 L Seg Neuts % (Manual) 77.0 H Lymphocytes % (Manual) 1.0 L Monocytes % (Manual) Nucleated RBC % 1.0 H Seg Neutrophils # Man 26.6 H Lymphocytes # (Manual) 0.3 L Monocytes # (Manual) 1.4 H PT INR POC ABG pH POC ABG pCO2 POC ABG pO2 Sodium 131 L Potassium 3.5 L D Chloride 88.6 L Carbon Dioxide BUN 32 H Creatinine Glucose 117 H POC Glucose 110 H Lactic Acid Calcium Phosphorus Direct Bilirubin AST Total Creatine Kinase Troponin T C-Reactive Protein Total Protein Albumin TSH Urine WBC (Auto) Crossmatch 01/22/19 01/22/19 01/22/19 04:17 04:45 05:16 WBC RBC Hgb Hct MCV MCH RDW Plt Count Seg Neuts % (Manual) Lymphocytes % (Manual) Monocytes % (Manual) Nucleated RBC % Seg Neutrophils # Man Lymphocytes # (Manual) Monocytes # (Manual) PT INR POC ABG pH 7.492 H POC ABG pCO2 POC ABG pO2 64 L Sodium 131 L Potassium 2.9 L* Chloride 89.8 L Carbon Dioxide BUN 30 H Creatinine Glucose POC Glucose 116 H Lactic Acid Calcium Phosphorus Direct Bilirubin AST Total Creatine Kinase Troponin T C-Reactive Protein Total Protein Albumin TSH Urine WBC (Auto) Crossmatch 01/22/19 01/22/19 01/22/19 11:01 12:01 16:50 WBC RBC Hgb Hct MCV MCH RDW Plt Count Seg Neuts % (Manual) Lymphocytes % (Manual) Monocytes % (Manual) Nucleated RBC % Seg Neutrophils # Man Lymphocytes # (Manual) Monocytes # (Manual) PT INR POC ABG pH POC ABG pCO2 POC ABG pO2 Sodium 132 L Potassium 2.8 L* Chloride 92.4 L Carbon Dioxide BUN 29 H Creatinine Glucose POC Glucose 119 H Lactic Acid Calcium Phosphorus Direct Bilirubin AST Total Creatine Kinase Troponin T C-Reactive Protein 24.80 H Total Protein Albumin TSH Urine WBC (Auto) Crossmatch 01/22/19 01/23/19 01/23/19 23:38 04:25 04:55 WBC 26.4 H RBC 2.44 L Hgb 7.8 L Hct 23.7 L MCV 97 H MCH RDW 16.2 H Plt Count 22 L Seg Neuts % (Manual) Lymphocytes % (Manual) 1.0 L Monocytes % (Manual) Nucleated RBC % 11.0 H Seg Neutrophils # Man 0.0 L Lymphocytes # (Manual) 0.0 L Monocytes # (Manual) PT INR POC ABG pH 7.488 H POC ABG pCO2 POC ABG pO2 55 L Sodium Potassium Chloride Carbon Dioxide BUN Creatinine Glucose POC Glucose 111 H Lactic Acid Calcium Phosphorus Direct Bilirubin AST Total Creatine Kinase Troponin T C-Reactive Protein Total Protein Albumin TSH Urine WBC (Auto) Crossmatch 01/23/19 01/23/19 01/23/19 05:42 08:39 12:08 WBC RBC Hgb Hct MCV MCH RDW Plt Count Seg Neuts % (Manual) Lymphocytes % (Manual) Monocytes % (Manual) Nucleated RBC % Seg Neutrophils # Man Lymphocytes # (Manual) Monocytes # (Manual) PT INR POC ABG pH POC ABG pCO2 POC ABG pO2 Sodium 136 L Potassium 3.1 L Chloride 94.5 L Carbon Dioxide BUN 36 H Creatinine Glucose POC Glucose 107 H 108 H Lactic Acid Calcium Phosphorus Direct Bilirubin AST Total Creatine Kinase Troponin T C-Reactive Protein Total Protein Albumin TSH Urine WBC (Auto) Crossmatch 01/23/19 01/23/19 01/24/19 16:54 18:06 00:44 WBC RBC Hgb Hct MCV MCH RDW Plt Count Seg Neuts % (Manual) Lymphocytes % (Manual) Monocytes % (Manual) Nucleated RBC % Seg Neutrophils # Man Lymphocytes # (Manual) Monocytes # (Manual) PT INR POC ABG pH POC ABG pCO2 POC ABG pO2 Sodium Potassium 3.2 L Chloride 96.9 L Carbon Dioxide BUN 39 H Creatinine Glucose 109 H POC Glucose 115 H 137 H Lactic Acid Calcium Phosphorus Direct Bilirubin AST Total Creatine Kinase Troponin T C-Reactive Protein Total Protein Albumin TSH Urine WBC (Auto) Crossmatch 01/24/19 01/24/19 01/24/19 03:47 05:38 07:48 WBC RBC Hgb Hct MCV MCH RDW Plt Count Seg Neuts % (Manual) Lymphocytes % (Manual) Monocytes % (Manual) Nucleated RBC % Seg Neutrophils # Man Lymphocytes # (Manual) Monocytes # (Manual) PT INR POC ABG pH 7.504 H POC ABG pCO2 34.9 L POC ABG pO2 62 L Sodium Potassium Chloride Carbon Dioxide BUN Creatinine Glucose POC Glucose 120 H 112 H Lactic Acid Calcium Phosphorus Direct Bilirubin AST Total Creatine Kinase Troponin T C-Reactive Protein Total Protein Albumin TSH Urine WBC (Auto) Crossmatch
[2019-01-24] MEDS: PEPCID IV SCH ×2 (09:35→22:58)
[2019-01-24] MEDS: VANCOMYCIN 1,500 MG in NACL 0.9% 500 ML 500 ML IV SCH (09:35)
--- NOTE | 2019-01-24 10:30 | Progress Note ---
Assessment and Plan Pt remains in AFib with CVR. Cont present cardiac management. Replete lytes PRN. Pt is not currently a candidate for systemic AC in regards to AFib in setting of anemia and thrombocytopenia. Will follow peripherally over the weekend. The patient has been seen in conjunction with Dr. Mike who agrees with assessment and plan of care. - Patient Problems (1) Altered mental status Current Visit: Yes Status: Acute (2) Sepsis Current Visit: Yes Status: Acute (3) Atrial fibrillation Current Visit: Yes Status: Acute (4) Dehydration Current Visit: Yes Status: Acute (5) Anemia Current Visit: No Status: Chronic Qualifiers: Anemia type: unspecified type Qualified Code(s): D64.9 - Anemia, unspecified (6) Hyperkalemia Current Visit: Yes Status: Acute (7) Bradycardia Current Visit: Yes Status: Acute (8) Hyponatremia Current Visit: Yes Status: Acute (9) Hypotension Current Visit: Yes Status: Acute (10) History of CVA (cerebrovascular accident) Current Visit: Yes Status: Acute (11) Hypothyroidism Current Visit: No Status: Chronic (12) Chronic ulcer of sacral region Current Visit: Yes Status: Acute (13) Dysphagia Current Visit: No Status: Acute (14) UTI (urinary tract infection) Current Visit: No Status: Acute Subjective Date of service: 01/24/19 Principal diagnosis: hypoxic/hypercarbic respiratory failure Interval history: remains intubated, nonresponsive, weaned off vasopressors currently. in AFib with CVR on tele. Objective Last Vital Signs Temp 97.5 F L 01/24/19 07:57 Pulse 87 01/24/19 08:21 Resp 14 01/24/19 06:00 BP 151/92 01/24/19 08:21 Pulse Ox 92 01/24/19 08:21 - Physical Examination General: Other (intubated, unresponsive) HEENT: Positive: Normocephaly Neck: Positive: neck supple, trachea midline Cardiac: Positive: irregularly irregular, S1/S2 Lungs: Positive: Decreased Breath Sounds, Ventilated Respirations Neuro: Positive: Other (intubated, unresponsive) Abdomen: Positive: Soft, Active Bowel Sounds, Distended. Negative: Tender /Rectal: Normal Prostate, No Masses Skin: Positive: Wound (open wound to left foot. ). Negative: Rash Musculoskeletal: No Fluid Collection Gait: Normal Gait Extremities: Present: edema (trace nonpitting bilateral edema) - Labs and Meds Comprehensive Metabolic Panel 01/23/19 Range/Units 16:54 Sodium 138 (137-145) mmol/L Potassium 3.2 L (3.6-5.0) mmol/L Chloride 96.9 L (98-107) mmol/L Carbon Dioxide 28 (22-30) mmol/L BUN 39 H (9-20) mg/dL Creatinine 1.4 (0.8-1.5) mg/dL Glucose 109 H (75-100) mg/dL Calcium 8.5 (8.4-10.2) mg/dL - Imaging and Cardiology EKG: image reviewed AV and intraventricular conduction: intraventricular conducti
[2019-01-24] MEDS: KCL 20 MEQ in LACTATED RINGERS 1,000 ML IV SCH ×2 (11:46→20:20)
[2019-01-24] MEDS ORDERED: ATIVAN IV ONE (15:00)
[2019-01-24] MEDS ORDERED: VALPROIC ACID NGTUBE SCH (15:15)
--- NOTE | 2019-01-24 16:04 | Progress Note ---
Assessment and Plan Cultures: Blood culture 01/19/2019 Enterococcus faecalis 2 of 4 bottles and MDR Pseudomonas 1 of 4 bottles Urine culture 01/19/2019 Klebsiella. 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 Per , he is contracted and non verbal at baseline but then she noted cold temperature, worsening sleepiness and wheezing for 2-3 days: 1) Shock likely mixed cardiogenic due to symptomatic bradycardia +/- ?mixedema coma +/- septic: better. Septic etiology most likely Enterococcus bacteremia +/- Klebsiella UTI +/- pneumonia. CRP 24. 2) Enterococcus and MDR Pseudomonas bacteremia: unclear source, ?lung; TTE no vegetations. 3) Klebsiella UTI: UA 185 wbc, LE moderate. Urine culture 01/19/2019 Klebsiella 4) Pneumonia: likely aspiration pneumonia. Sputum +GNRs. CXR showed extensive airspace disease in right lung and in left perihilar region, new in comparison to prior examination. 5) Acute on chronic encephalopathy: multifactorial from hyponatremia, symptomatic bradycardia and sepsis 6) Uncontrolled hypothyroidism Recommendations: - contact isolation due to MDR Pseudomonas - continue meropenem - continue vancomycin and flagyl for now - follow-up repeat blood cultures Will follow on Sunday Gloria Valencia MD Infectious Diseases Head [facility] M [phone] O [phone] Subjective Date of service: 01/24/19 Principal diagnosis: hypoxic/hypercarbic respiratory failure Interval history: Remains intubated no pressors no fever +note focal seizures Objective - Exam Narrative Exam: General appearance: intubated in NAD,alert no follows commands Eyes: anicteric sclerae, moist conjunctivae; no lid-lag; PERRLA HENT: Atraumatic; oropharynx +ETT +NGT . Neck: Trachea midline; supple, no thyromegaly or lymphadenopathy Lungs: bilateral loud rhonchi CV: irreg Abdomen: Soft, non-tender;+PEG Extremities: bilateral leg edema, right hand edema Skin: Normal temperature, turgor and texture; no rash, ulcers or subcutaneous nodules Psych: no agitated. Neuro: +repetitive eye flicker, non verbal, contracted. Right femoral TLC/klein - Constitutional Vitals: Vital Signs Temp Pulse Resp BP Pulse Ox 97.7 F 79 16 160/91 98 01/24/19 12:00 01/24/19 13:30 01/24/19 13:30 01/24/19 13:30 01/24/19 13:30 Temperature -Last 24 Hours Temperature 97.7 F Temperature 97.5 F Temperature 98.2 F Temperature 98.9 F Temperature 98 F - Labs CBC & Chem 7: 01/23/19 04:25 01/23/19 16:54 Labs: Abnormal lab results 01/23/19 01/23/19 01/24/19 Range/Units 16:54 18:06 00:44 POC ABG pH (7.35-7.45) POC ABG pCO2 (35-45) POC ABG pO2 (80-105) Potassium 3.2 L (3.6-5.0) mmol/L Chloride 96.9 L (98-107) mmol/L BUN 39 H (9-20) mg/dL Glucose 109 H (75-100) mg/dL POC Glucose 115 H 137 H (70-105) 01/24/19 01/24/19 01/24/19 Range/Units 03:47 05:38 07:48 POC ABG pH 7.504 H (7.35-7.45) POC ABG pCO2 34.9 L (35-45) POC ABG pO2 62 L (80-105) Potassium (3.6-5.0) mmol/L Chloride (98-107) mmol/L BUN (9-20) mg/dL Glucose (75-100) mg/dL POC Glucose 120 H 112 H (70-105) 01/24/19 Range/Units 11:43 POC ABG pH (7.35-7.45) POC ABG pCO2 (35-45) POC ABG pO2 (80-105) Potassium (3.6-5.0) mmol/L Chloride (98-107) mmol/L BUN (9-20) mg/dL Glucose (75-100) mg/dL POC Glucose 126 H (70-105)
--- NOTE | 2019-01-24 16:34 | Progress Note ---
Assessment and Plan Assessment and plan: 63 y/o male with history of CVA with residual right sided weakness who was brought from home to the ED due to change in mental state. Per report, not verbal at baseline. Per EMS, patient had HR in the 20's and was given atropine. Brought to the ED and was found to be severely hyponatremic as well as h yperkalemic, hypothermic and hypotensive. Subsequently, patient started bleeding from multiple orifices CXR: IMPRESSION: The endotracheal tube lies in appropriate position Extensive airspace disease in right lung and in left perihilar region, new in comparison to prior examination of earlier in the day. Renal US: IMPRESSION: Nonspecific renal parenchymal disease.Slightly complex left renal cyst which is grossly unchanged since CT dated 10/30/17. Severe sepsis with shock -Worsening Leukocytosis -likely secondary to Klebsiella UTI -On IV antibiotic and dopamine drip -Urine culture positive for Klebsiella pneumoniae. -Added Isolation -Blood cultures 1 out of 2 bottles positive for gram positive cocci -ID consulted. Bleeding from multiple orifices/Possible DIC- Thrombocytopenia, ANEMIA -will monitor H/H and coagulation profile=- continues to decline. -Condition guarded with poor prognosis -Low platelet Acute hypoxic and hypercapnic respiratory failure -Status post intubation on mechanical ventilator -Pulmonology following Symptomatic severe sinus bradycardia -Status post multiple doses of atropine -HR improving on epinephrine drip -Cardiology following Severe hyponatremia -Level improving, will monitor -Nephrology following ASHOK, probably vasomotor nephropathy -Creatinine level IMROVING, will monitor level -Renal ultrasound negative for hydronephrosis -Nephrology following Recurrent Hyperkalemia now Hypokalemia -Discussed with Nephrology, they will replace. -We'll continue treatment and monitor potassium level -Nephrology following Acute on chronic metabolic encephalopathy -Likely due to the acute process -Head CT scan pending Anemia of acute loss -IU PRBC ordered, will monitor H/H DM2 -Blood glucose currently stable Hypothyroidism -TSH level elevated but free T4 normal -On a stress dose IV steroid and IV Synthroid by pulmonology History of CVA with residual right sided weakness and non-verbal -Continue supportive care Chronic sacral decubitus ulcers -Wound care nurse consulted Chronic dysphagia status post PEG tube placement -Dietitian consulted dvt/gi PROPHY scd secondary to thromobocytopenia spoke to sister who the patient has lived with for the past 4 years. Hospice being considered but will let us know after family discussion The high probability of a clinically significant, sudden or life threatening deterioration of the [neuro, pulmonary, nephro] system(s) required my full and direct attention, intervention and personal management. The aggregate critical care time was [45] minutes. This time is in addition to time spent performing reported procedures but includes the following: [x] Data Review and interpretation [x] Patient assessment and monitoring of vital signs [x] Documentation [x] Medication orders and management History Interval history: Pateint seen and examined, remains on full ventilatory support, no clinical change, nursing reported some generalized tremor, no clear evidence of seizure. Med recs done Hospitalist Physical - Physical exam Narrative exam: General appearance: Present: mild distress on full MVS - EENT Eyes: Present: PERRL ENT: other (patient is intubated) - Neck Neck: Present: supple - Respiratory Respiratory effort: labored Respiratory: bilateral: rales - Cardiovascular Rhythm: regular (with bradycardia) Heart Sounds: Present: S1 & S2 - Extremities Extremity abnormal: pitting edema (in bilateral upper and lower extremities) - Abdominal General gastrointestinal: distended (firm on palpation), normal bowel sounds - Integumentary Integumentary: Present: erythema (sacral decubitus ulcers) - Neurologic Neurologic: other (patient is unresponsive although sluggishly opens eyes on verbal stimuli) - Constitutional Vitals: Temp Pulse Resp BP Pulse Ox 97.7 F 79 16 160/91 98 01/24/19 12:00 01/24/19 13:30 01/24/19 13:30 01/24/19 13:30 01/24/19 13:30 General appearance: Present: no acute distress Results - Labs CBC & Chem 7: 01/23/19 04:25 01/23/19 16:54 Labs: Laboratory Last Values WBC 26.4 K/mm3 (4.5-11.0) H 01/23/19 04:25 RBC 2.44 M/mm3 (3.65-5.03) L 01/23/19 04:25 Hgb 7.8 gm/dl (11.8-15.2) L 01/23/19 04:25 Hct 23.7 % (35.5-45.6) L 01/23/19 04:25 MCV 97 fl (84-94) H 01/23/19 04:25 MCH 32 pg (28-32) 01/23/19 04:25 MCHC 33 % (32-34) 01/23/19 04:25 RDW 16.2 % (13.2-15.2) H 01/23/19 04:25 Plt Count 22 K/mm3 (140-440) L 01/23/19 04:25 Lymph % (Auto) Sexual Assault Counselor 01/19/19 07:48 [place] % (Auto) Sexual Assault Counselor 01/19/19 07:48 Eos % (Auto) Sexual Assault Counselor 01/19/19 07:48 Baso % (Auto) Sexual Assault Counselor 01/19/19 07:48 Lymph # Sexual Assault Counselor 01/19/19 07:48 [place] # Sexual Assault Counselor 01/19/19 07:48 Eos # Sexual Assault Counselor 01/19/19 07:48 Baso # Sexual Assault Counselor 01/19/19 07:48 Add Manual Diff Complete 01/23/19 04:25 Total Counted 100 01/23/19 04:25 Seg Neutrophils % Sexual Assault Counselor 01/23/19 04:25 Seg Neuts % (Manual) 57.0 % (40.0-70.0) 01/23/19 04:25 Band Neutrophils % 37.0 % 01/23/19 04:25 Lymphocytes % (Manual) 1.0 % (13.4-35.0) L 01/23/19 04:25 Reactive Lymphs % (Man) 0 % 01/23/19 04:25 Monocytes % (Manual) 5.0 % (0.0-7.3) 01/23/19 04:25 Eosinophils % (Manual) 0 % (0.0-4.3) 01/23/19 04:25 Basophils % (Manual) 0 % (0.0-1.8) 01/23/19 04:25 Metamyelocytes % 0 % 01/23/19 04:25 Myelocytes % 0 % 01/23/19 04:25 Promyelocytes % 0 % 01/23/19 04:25 Blast Cells % 0 % 01/23/19 04:25 Nucleated RBC % 11.0 % (0.0-0.9) H 01/23/19 04:25 Seg Neutrophils # Sexual Assault Counselor 01/19/19 07:48 Seg Neutrophils # Man 0.0 K/mm3 (1.8-7.7) L 01/23/19 04:25 Band Neutrophils # 0.0 K/mm3 01/23/19 04:25 Lymphocytes # (Manual) 0.0 K/mm3 (1.2-5.4) L 01/23/19 04:25 Abs React Lymphs (Man) 0.0 K/mm3 01/23/19 04:25 Monocytes # (Manual) 0.0 K/mm3 (0.0-0.8) 01/23/19 04:25 Eosinophils # (Manual) 0.0 K/mm3 (0.0-0.4) 01/23/19 04:25 Basophils # (Manual) 0.0 K/mm3 (0.0-0.1) 01/23/19 04:25 Metamyelocytes # 0.0 K/mm3 01/23/19 04:25 Myelocytes # 0.0 K/mm3 01/23/19 04:25 Promyelocytes # 0.0 K/mm3 01/23/19 04:25 Blast Cells # 0.0 K/mm3 01/23/19 04:25 WBC Morphology Not Reportable 01/23/19 04:25 Hypersegmented Neuts Not Reportable 01/23/19 04:25 Hyposegmented Neuts Not Reportable 01/23/19 04:25 Hypogranular Neuts Not Reportable 01/23/19 04:25 Smudge Cells Not Reportable 01/23/19 04:25 Toxic Granulation Not Reportable 01/23/19 04:25 Toxic Vacuolation Not Reportable 01/23/19 04:25 Dohle Bodies Few 01/23/19 04:25 Pelger-Huet Anomaly Not Reportable 01/23/19 04:25 Kaitlyn Rods Not Reportable 01/23/19 04:25 Platelet Estimate Consistent w auto 01/23/19 04:25 Clumped Platelets Not Reportable 01/23/19 04:25 Plt Clumps, EDTA Not Reportable 01/23/19 04:25 Large Platelets Few 01/23/19 04:25 Giant Platelets Not Reportable 01/23/19 04:25 Platelet Satelliting Not Reportable 01/23/19 04:25 Plt Morphology Comment Not Reportable 01/23/19 04:25 RBC Morphology Not Reportable 01/23/19 04:25 Dimorphic RBCs Not Reportable 01/23/19 04:25 Polychromasia Not Reportable 01/23/19 04:25 Hypochromasia Not Reportable 01/23/19 04:25 Poikilocytosis Not Reportable 01/23/19 04:25 Anisocytosis 1+ 01/23/19 04:25 Microcytosis Not Reportable 01/23/19 04:25 Macrocytosis Not Reportable 01/23/19 04:25 Spherocytes Not Reportable 01/23/19 04:25 Pappenheimer Bodies Not Reportable 01/23/19 04:25 Sickle Cells Not Reportable 01/23/19 04:25 Target Cells Few 01/23/19 04:25 Tear Drop Cells Not Reportable 01/23/19 04:25 Ovalocytes Not Reportable 01/23/19 04:25 Helmet Cells Not Reportable 01/23/19 04:25 Ol-[place] Bodies Not Reportable 01/23/19 04:25 Broadbent Rings Not Reportable 01/23/19 04:25 Gregory Cells Not Reportable 01/23/19 04:25 Bite Cells Not Reportable 01/23/19 04:25 Crenated Cell Not Reportable 01/23/19 04:25 Elliptocytes Not Reportable 01/23/19 04:25 Acanthocytes (Spur) Not Reportable 01/23/19 04:25 Rouleaux Not Reportable 01/23/19 04:25 Hemoglobin C Crystals Not Reportable 01/23/19 04:25 Schistocytes Not Reportable 01/23/19 04:25 Malaria parasites Not Reportable 01/23/19 04:25 Dionisio Bodies Not Reportable 01/23/19 04:25 Hem Pathologist Commnt No 01/23/19 04:25 PT 15.1 Sec. (12.2-14.9) H 01/19/19 Unknown INR 1.12 (0.87-1.13) 01/19/19 Unknown APTT 33.5 Sec. (24.2-36.6) 01/19/19 Unknown POC ABG pH 7.504 (7.35-7.45) H 01/24/19 03:47 POC ABG pCO2 34.9 (35-45) L 01/24/19 03:47 POC ABG pO2 62 (80-105) L 01/24/19 03:47 POC ABG HCO3 27.4 (22-26 mml/L) 01/24/19 03:47 POC ABG Total CO2 28 (23-27mmol/L) 01/24/19 03:47 POC ABG O2 Sat 94 01/24/19 03:47 POC ABG Base Excess 4 ((-2) - (+3)mmol/L) 01/24/19 03:47 FiO2 40 % 01/24/19 03:47 Sodium 138 mmol/L (137-145) 01/23/19 16:54 Potassium 3.2 mmol/L (3.6-5.0) L 01/23/19 16:54 Chloride 96.9 mmol/L (98-107) L 01/23/19 16:54 Carbon Dioxide 28 mmol/L (22-30) 01/23/19 16:54 Anion Gap 16 mmol/L 01/23/19 16:54 BUN 39 mg/dL (9-20) H 01/23/19 16:54 Creatinine 1.4 mg/dL (0.8-1.5) 01/23/19 16:54 Estimated GFR > 60 ml/min 01/23/19 16:54 BUN/Creatinine Ratio 28 % 01/23/19 16:54 Glucose 109 mg/dL (75-100) H 01/23/19 16:54 POC Glucose 126 (70-105) H 01/24/19 11:43 Osmolality 268 Mosm/kg 01/20/19 17:52 Lactic Acid 3.20 mmol/L (0.7-2.0) H* 01/19/19 10:24 Uric Acid 5.3 mg/dL (3.5-7.6) 01/20/19 17:52 Calcium 8.5 mg/dL (8.4-10.2) 01/23/19 16:54 Phosphorus 5.90 mg/dL (2.5-4.5) H 01/20/19 Unknown Magnesium 1.90 mg/dL (1.7-2.3) 01/20/19 Unknown Total Bilirubin 0.40 mg/dL (0.1-1.2) 01/21/19 02:45 Direct Bilirubin 0.3 mg/dL (0-0.2) H 01/21/19 02:45 Indirect Bilirubin 0.1 mg/dL 01/21/19 02:45 AST 59 units/L (5-40) H 01/21/19 02:45 ALT 28 units/L (7-56) 01/21/19 02:45 Alkaline Phosphatase 91 units/L (35-129) 01/21/19 02:45 Ammonia 34.0 umol/L (25-60) 01/19/19 07:48 Total Creatine Kinase < 7 units/L (55-170) L 01/19/19 07:46 Troponin T 0.031 ng/mL (0.00-0.029) H D 01/19/19 10:24 C-Reactive Protein 24.80 mg/dL (0.00-1.30) H 01/22/19 11:01 Total Protein 5.7 g/dL (6.3-8.2) L 01/21/19 02:45 Albumin 3.1 g/dL (3.9-5) L 01/21/19 02:45 Albumin/Globulin Ratio 1.2 % 01/21/19 02:45 Triglycerides 78 mg/dL (2-149) 01/19/19 10:24 Cholesterol 130 mg/dL (50-199) 01/19/19 10:24 LDL Cholesterol Direct 71 mg/dL (50-130) 01/19/19 10:24 HDL Cholesterol 53 mg/dL (40-59) 01/19/19 10:24 Cholesterol/HDL Ratio 2.45 % 01/19/19 10:24 TSH 8.530 mlU/mL (0.270-4.200) H 01/19/19 07:46 Free T4 0.92 ng/dL (0.76-1.46) 01/19/19 14:39 Urine Color Yellow (Yellow) 01/19/19 08:30 Urine Turbidity Turbid (Clear) 01/19/19 08:30 Urine pH 5.0 (5.0-7.0) 01/19/19 08:30 Ur Specific [place] 1.020 (1.003-1.030) 01/19/19 08:30 Urine Protein 100 mg/dl mg/dL (Negative) 01/19/19 08:30 Urine Glucose (UA) Neg mg/dL (Negative) 01/19/19 08:30 Urine Ketones Neg mg/dL (Negative) 01/19/19 08:30 Urine Blood Sm (Negative) 01/19/19 08:30 Urine Nitrite Neg (Negative) 01/19/19 08:30 Urine Bilirubin Sm (Negative) 01/19/19 08:30 Urine Ictotest Negative (Negative) 01/19/19 08:30 Urine Urobilinogen < 2.0 mg/dL (<2.0) 01/19/19 08:30 Ur Leukocyte Esterase Mod (Negative) 01/19/19 08:30 Urine WBC (Auto) > 182.0 /HPF (0.0-6.0) H 01/19/19 08:30 Urine RBC (Auto) 134.0 /HPF (0.0-6.0) 01/19/19 08:30 Urine Bacteria (Auto) 4+ /HPF (Negative) 01/19/19 08:30 Urine WBC Clumps 3+ /HPF 01/19/19 08:30 Ur Transition Epith Cell 6 /HPF 01/19/19 08:30 Amorphous Crystals 2+ 01/19/19 08:30 Urine Osmolality 225 Mosm/kg 01/21/19 02:50 Urine Sodium 64 mmol/L 01/21/19 02:50 Urine Potassium 31.83 mmol/L 01/21/19 02:50 Blood Type O POSITIVE 01/21/19 12:09 Antibody Screen Negative 01/21/19 12:09 Crossmatch See Detail 01/21/19 12:09 Active Medications - Current Medications Current Medications: Generic Name Dose Route Start Last Admin Trade Name Freq PRN Reason Stop Dose Admin Acetaminophen 650 mg 01/21/19 02:23 01/21/19 03:59 Tylenol PO 650 mg Q6H PRN Administration Fever > 101 Amlodipine Besylate 10 mg 01/25/19 10:00 Norvasc PO DAILY PRISCA Dextrose 50 ml 01/19/19 16:42 01/21/19 16:53 D50w (25gm) Syringe IV 50 ml PRN PRN Administration Hypoglycemia Famotidine 20 mg 01/20/19 11:00 01/24/19 09:35 Pepcid IV 20 mg BID PRISCA Administration Hydralazine HCl 25 mg 01/24/19 22:00 Apresoline PO Q8HR PRISCA Hydrocortisone Sodium Succinate 150 mg 01/20/19 22:00 01/24/19 13:56 Solu-Cortef IV 150 mg Q8H PRISCA Administration Dopamine HCl/Dextrose 800 mg in 250 mls @ 4.082 mls/hr 01/19/19 20:00 9 10:45 Intropin Drip 800 Mg/D5w 250 Ml IV 0 mcg/kg/min TITR PRISCA 0 mls/hr Titration Protocol 2 MCG/KG/MIN Epinephrine 8 mg/ Sodium 250 mls @ 3.75 mls/hr 01/20/19 09:00 01/21/19 12:00 Chloride IV 0 mcg/min TITR PRISCA 0 mls/hr Titration Protocol 2 MCG/MIN Metronidazole 500 mg in 100 mls @ 100 mls/hr 01/22/19 10:00 01/24/19 13:56 Flagyl 500 Mg/100 Ml IV 100 mls/hr Q8HR PRISCA Administration Protocol Vancomycin HCl 1,500 mg/ 530 mls @ 333.333 mls/hr 01/23/19 10:00 01/24/19 09:35 Sodium Chloride IV 333.333 mls/hr Q24HR PRISCA Administration Meropenem 1,000 mg/ Sodium 100 mls @ 100 mls/hr 01/24/19 00:00 01/24/19 08:28 Chloride IV 100 mls/hr Q8H PRISCA Administration Protocol Potassium Chloride 20 meq/ 1,010 mls @ 125 mls/hr 01/24/19 09:00 01/24/19 11:46 Lactated Ringer's IV 125 mls/hr DIRECT PRISCA Administration Insulin Human Isoph/Insulin Regular 15 unit 01/24/19 17:00 Humulin 70/30 SUB-Q BIDDIAB PRISCA Insulin Human Lispro 0 unit 01/19/19 18:00 01/24/19 11:49 Humalog SUB-Q Not Given Q6HR [facility] Protocol Levetiracetam 1,000 mg 01/24/19 22:00 Keppra FEEDTUBE BID PRISCA Levothyroxine Sodium 200 mcg 01/25/19 06:00 Synthroid FEEDTUBE DAILY@0600 PRISCA Metoprolol Tartrate 5 mg 01/22/19 14:00 01/24/19 11:50 Lopressor IV 5 mg Q6HR PRISCA Administration Miscellaneous Medication 15 mcg 01/25/19 10:00 Liothyronine Sodium [Cytomel] NGTUBE QAM PRISCA Oxcarbazepine 900 mg 01/24/19 22:00 Trileptal PO BID PRISCA Valproic Acid 1,000 mg 01/24/19 22:00 Depakene Liq FEEDTUBE BID [facility] Nutrition/Malnutrition Assess - Dietary Evaluation Nutrition/Malnutrition Findings: Nutrition Notes Start: 01/20/19 12:26 Freq: Status: Active Protocol: Document 01/23/19 10:31 EB (Rec: 01/23/19 10:34 EB [id number]) Co-Sign 01/23/19 10:31 LP Nutrition Notes Initial or Follow up Reassessment Current Diagnosis Decubitus(Pressure Ulcer), Diabetes,Sepsis,Hypertension, Stroke,Hyperlipidemia Other Pertinent Diagnosis AMS, Bradycardia Current Diet No diet ordered Labs/Tests Na 136 K 3.1 BUN 3 Pertinent Medications Dopamine gtt, Epinephrine gtt, SoluCortef Height 5 ft 11 in Weight 100.6 kg [place] Body Weight (kg) 78.18 BMI 30.9 Weight Status Obese Subjective/Other Information Following for pt stability and TF consult once pt is appropriate for feeding. Pt continues instability and is awating MD order for TF. Percent of energy/protein needs met: 0%/0% Burn Absent Trauma Absent Current % PO Negligible #2 Nutrition Diagnosis Malnutrition Diagnosis Progress(for reassessment Continues documentation) #1 Nutrition Diagnosis Inadequate oral intake Diagnosis Progress(for reassessment Continues documentation) Is patient on ventilator? Yes Is Patient Ambulatory and/or Out of Bed No REE-([facility]-confined to bed) 2180.784 Kcal/Kg value to use for calculation 17 Approximate Energy Requirements Using 1710 kcal/Kg Calculation Used for Recommendations Kcal/kg Additional Notes Pro needs 2g/kgIBW: 156g/day Fluid needs 1ml/kcal Nutrition Intervention Nutrition Support: Start EN support when medically feasible Goal #1 Start EN support to meet nutrient needs Anticipated Discharge Needs: Continue EN support Follow-Up By: 01/27/19 Additional Comments F/U: TF consult
[2019-01-24] MEDS ORDERED: NON-FORMULARY (Levetiracetam [Keppra Tab] 1,000 MG) NGTUBE SCH (22:00)
[2019-01-24] MEDS: APRESOLINE PO SCH (22:54)
[2019-01-24] MEDS: DepaKENE Liq FEEDTUBE SCH (22:56)
[2019-01-24] MEDS: KEPPRA FEEDTUBE SCH (22:57)
[2019-01-24] MEDS: TRILEPTAL PO SCH (23:10)
[2019-01-25] MEDS: KCL 20 MEQ in LACTATED RINGERS 1,000 ML IV SCH (04:42)
[2019-01-25] MEDS: HumaLOG SUB-Q SCH ×4 (04:42→17:42)
[2019-01-25] MEDS: MERREM 1,000 MG in NACL 0.9% 100 ML IV SCH ×3 (04:48→17:24)
[2019-01-25] MEDS: LOPRESSOR IV SCH ×4 (04:49→18:00)
[2019-01-25] MEDS: SYNTHROID FEEDTUBE SCH (06:20)
[2019-01-25] MEDS: APRESOLINE PO SCH ×3 (06:20→22:42)
[2019-01-25] MEDS: FLAGYL 500 MG/100 ML 500 MG/100 ML BAG IV SCH ×2 (06:23→15:46)
[2019-01-25] MEDS: NORVASC PO SCH (09:54)
[2019-01-25] MEDS: TRILEPTAL PO SCH ×2 (09:54→22:42)
[2019-01-25] MEDS: PEPCID IV SCH ×2 (09:55→22:42)
[2019-01-25] MEDS: KEPPRA FEEDTUBE SCH (09:56)
[2019-01-25] MEDS: VANCOMYCIN 1,500 MG in NACL 0.9% 500 ML 500 ML IV SCH (09:57)
[2019-01-25] MEDS ORDERED: LIOTHYRONINE SODIUM NGTUBE SCH (10:00)
[2019-01-25] MEDS ORDERED: NON-FORMULARY (Levothyroxine (Nf) [Synthroid (Nf)] 200 MCG) NGTUBE SCH (10:00)
--- NOTE | 2019-01-25 10:13 | Progress Note ---
Assessment and Plan Assessment and plan: 63 y/o male with history of CVA with residual right sided weakness who was brought from home to the ED due to change in mental state. Per report, not verbal at baseline. Per EMS, patient had HR in the 20's and was given atropine. Brought to the ED and was found to be severely hyponatremic as well as h yperkalemic, hypothermic and hypotensive. Subsequently, patient started bleeding from multiple orifices CXR: IMPRESSION: The endotracheal tube lies in appropriate position Extensive airspace disease in right lung and in left perihilar region, new in comparison to prior examination of earlier in the day. Renal US: IMPRESSION: Nonspecific renal parenchymal disease.Slightly complex left renal cyst which is grossly unchanged since CT dated 10/30/17. Severe sepsis with shock -Worsening Leukocytosis -likely secondary to Klebsiella UTI -On IV antibiotic and dopamine drip -Urine culture positive for Klebsiella pneumoniae. -Added Isolation -Blood cultures 1 out of 2 bottles positive for gram positive cocci -ID consulted. Bleeding from multiple orifices/Possible DIC- Thrombocytopenia, ANEMIA -will monitor H/H and coagulation profile=- continues to decline. -Condition guarded with poor prognosis -Low platelet Acute hypoxic and hypercapnic respiratory failure -Status post intubation on mechanical ventilator -Pulmonology following Symptomatic severe sinus bradycardia -Status post multiple doses of atropine -HR improving on epinephrine drip -Cardiology following Severe hyponatremia -Level improving, will monitor -Nephrology following ASHOK, probably vasomotor nephropathy -Creatinine level IMROVING, will monitor level -Renal ultrasound negative for hydronephrosis -Nephrology following Recurrent Hyperkalemia now Hypokalemia -Discussed with Nephrology, they will replace. -We'll continue treatment and monitor potassium level -Nephrology following Acute on chronic metabolic encephalopathy -Likely due to the acute process -Head CT scan pending Anemia of acute loss -IU PRBC ordered, will monitor H/H DM2 -Blood glucose currently stable Hypothyroidism -TSH level elevated but free T4 normal -On a stress dose IV steroid and IV Synthroid by pulmonology History of CVA with residual right sided weakness and non-verbal -Continue supportive care Chronic sacral decubitus ulcers -Wound care nurse consulted Chronic dysphagia status post PEG tube placement -Dietitian consulted SEIZURE DISORDER CHANGE TO IV AED dvt/gi PROPHY scd secondary to thromobocytopenia spoke to sister who the patient has lived with for the past 4 years. Hospice being considered but will let us know after family discussion The high probability of a clinically significant, sudden or life threatening deterioration of the [neuro, pulmonary, nephro] system(s) required my full and direct attention, intervention and personal management. The aggregate critical care time was [45] minutes. This time is in addition to time spent performing reported procedures but includes the following: [x] Data Review and interpretation [x] Patient assessment and monitoring of vital signs [x] Documentation [x] Medication orders and management History Interval history: Pateint seen and examined, remains on full ventilatory support, no clinical change, nursing reported some generalized tremor, no clear evidence of seizure. Med recs done Hospitalist Physical - Physical exam Narrative exam: General appearance: Present: mild distress on full MVS - EENT Eyes: Present: PERRL ENT: other (patient is intubated) - Neck Neck: Present: supple - Respiratory Respiratory effort: labored Respiratory: bilateral: rales - Cardiovascular Rhythm: regular (with bradycardia) Heart Sounds: Present: S1 & S2 - Extremities Extremity abnormal: pitting edema (in bilateral upper and lower extremities) - Abdominal General gastrointestinal: distended (firm on palpation), normal bowel sounds - Integumentary Integumentary: Present: erythema (sacral decubitus ulcers) - Neurologic Neurologic: other (patient is unresponsive although sluggishly opens eyes on verbal stimuli) - Constitutional Vitals: Temp Pulse Resp BP Pulse Ox 98.6 F 62 16 158/108 97 01/25/19 07:25 01/25/19 08:32 01/25/19 06:00 01/25/19 08:32 01/25/19 08:32 General appearance: Present: no acute distress Results - Labs CBC & Chem 7: 01/26/19 04:45 01/26/19 04:45 Labs: Laboratory Last Values WBC 26.4 K/mm3 (4.5-11.0) H 01/23/19 04:25 RBC 2.44 M/mm3 (3.65-5.03) L 01/23/19 04:25 Hgb 7.8 gm/dl (11.8-15.2) L 01/23/19 04:25 Hct 23.7 % (35.5-45.6) L 01/23/19 04:25 MCV 97 fl (84-94) H 01/23/19 04:25 MCH 32 pg (28-32) 01/23/19 04:25 MCHC 33 % (32-34) 01/23/19 04:25 RDW 16.2 % (13.2-15.2) H 01/23/19 04:25 Plt Count 22 K/mm3 (140-440) L 01/23/19 04:25 Lymph % (Auto) Pretzel Cooker 01/19/19 07:48 [place] % (Auto) Pretzel Cooker 01/19/19 07:48 Eos % (Auto) Pretzel Cooker 01/19/19 07:48 Baso % (Auto) Pretzel Cooker 01/19/19 07:48 Lymph # Pretzel Cooker 01/19/19 07:48 Swift # Pretzel Cooker 01/19/19 07:48 Eos # Pretzel Cooker 01/19/19 07:48 Baso # Pretzel Cooker 01/19/19 07:48 Add Manual Diff Complete 01/23/19 04:25 Total Counted 100 01/23/19 04:25 Seg Neutrophils % Pretzel Cooker 01/23/19 04:25 Seg Neuts % (Manual) 57.0 % (40.0-70.0) 01/23/19 04:25 Band Neutrophils % 37.0 % 01/23/19 04:25 Lymphocytes % (Manual) 1.0 % (13.4-35.0) L 01/23/19 04:25 Reactive Lymphs % (Man) 0 % 01/23/19 04:25 Monocytes % (Manual) 5.0 % (0.0-7.3) 01/23/19 04:25 Eosinophils % (Manual) 0 % (0.0-4.3) 01/23/19 04:25 Basophils % (Manual) 0 % (0.0-1.8) 01/23/19 04:25 Metamyelocytes % 0 % 01/23/19 04:25 Myelocytes % 0 % 01/23/19 04:25 Promyelocytes % 0 % 01/23/19 04:25 Blast Cells % 0 % 01/23/19 04:25 Nucleated RBC % 11.0 % (0.0-0.9) H 01/23/19 04:25 Seg Neutrophils # Pretzel Cooker 01/19/19 07:48 Seg Neutrophils # Man 0.0 K/mm3 (1.8-7.7) L 01/23/19 04:25 Band Neutrophils # 0.0 K/mm3 01/23/19 04:25 Lymphocytes # (Manual) 0.0 K/mm3 (1.2-5.4) L 01/23/19 04:25 Abs React Lymphs (Man) 0.0 K/mm3 01/23/19 04:25 Monocytes # (Manual) 0.0 K/mm3 (0.0-0.8) 01/23/19 04:25 Eosinophils # (Manual) 0.0 K/mm3 (0.0-0.4) 01/23/19 04:25 Basophils # (Manual) 0.0 K/mm3 (0.0-0.1) 01/23/19 04:25 Metamyelocytes # 0.0 K/mm3 01/23/19 04:25 Myelocytes # 0.0 K/mm3 01/23/19 04:25 Promyelocytes # 0.0 K/mm3 01/23/19 04:25 Blast Cells # 0.0 K/mm3 01/23/19 04:25 WBC Morphology Not Reportable 01/23/19 04:25 Hypersegmented Neuts Not Reportable 01/23/19 04:25 Hyposegmented Neuts Not Reportable 01/23/19 04:25 Hypogranular Neuts Not Reportable 01/23/19 04:25 Smudge Cells Not Reportable 01/23/19 04:25 Toxic Granulation Not Reportable 01/23/19 04:25 Toxic Vacuolation Not Reportable 01/23/19 04:25 Dohle Bodies Few 01/23/19 04:25 Pelger-Huet Anomaly Not Reportable 01/23/19 04:25 Kaitlyn Rods Not Reportable 01/23/19 04:25 Platelet Estimate Consistent w auto 01/23/19 04:25 Clumped Platelets Not Reportable 01/23/19 04:25 Plt Clumps, EDTA Not Reportable 01/23/19 04:25 Large Platelets Few 01/23/19 04:25 Giant Platelets Not Reportable 01/23/19 04:25 Platelet Satelliting Not Reportable 01/23/19 04:25 Plt Morphology Comment Not Reportable 01/23/19 04:25 RBC Morphology Not Reportable 01/23/19 04:25 Dimorphic RBCs Not Reportable 01/23/19 04:25 Polychromasia Not Reportable 01/23/19 04:25 Hypochromasia Not Reportable 01/23/19 04:25 Poikilocytosis Not Reportable 01/23/19 04:25 Anisocytosis 1+ 01/23/19 04:25 Microcytosis Not Reportable 01/23/19 04:25 Macrocytosis Not Reportable 01/23/19 04:25 Spherocytes Not Reportable 01/23/19 04:25 Pappenheimer Bodies Not Reportable 01/23/19 04:25 Sickle Cells Not Reportable 01/23/19 04:25 Target Cells Few 01/23/19 04:25 Tear Drop Cells Not Reportable 01/23/19 04:25 Ovalocytes Not Reportable 01/23/19 04:25 Helmet Cells Not Reportable 01/23/19 04:25 [place] Bodies Not Reportable 01/23/19 04:25 [place] Rings Not Reportable 01/23/19 04:25 [place] Cells Not Reportable 01/23/19 04:25 Bite Cells Not Reportable 01/23/19 04:25 Crenated Cell Not Reportable 01/23/19 04:25 Elliptocytes Not Reportable 01/23/19 04:25 Acanthocytes (Spur) Not Reportable 01/23/19 04:25 Rouleaux Not Reportable 01/23/19 04:25 Hemoglobin C Crystals Not Reportable 01/23/19 04:25 Schistocytes Not Reportable 01/23/19 04:25 Malaria parasites Not Reportable 01/23/19 04:25 Dionisio Bodies Not Reportable 01/23/19 04:25 Hem Pathologist Commnt No 01/23/19 04:25 PT 15.1 Sec. (12.2-14.9) H 01/19/19 Unknown INR 1.12 (0.87-1.13) 01/19/19 Unknown APTT 33.5 Sec. (24.2-36.6) 01/19/19 Unknown POC ABG pH 7.479 (7.35-7.45) H 01/25/19 03:52 POC ABG pCO2 35.5 (35-45) 01/25/19 03:52 POC ABG pO2 88 (80-105) 01/25/19 03:52 POC ABG HCO3 26.4 (22-26 mml/L) 01/25/19 03:52 POC ABG Total CO2 27 (23-27mmol/L) 01/25/19 03:52 POC ABG O2 Sat 97 01/25/19 03:52 POC ABG Base Excess 3 ((-2) - (+3)mmol/L) 01/25/19 03:52 FiO2 45 % 01/25/19 03:52 Sodium 138 mmol/L (137-145) 01/23/19 16:54 Potassium 3.2 mmol/L (3.6-5.0) L 01/23/19 16:54 Chloride 96.9 mmol/L (98-107) L 01/23/19 16:54 Carbon Dioxide 28 mmol/L (22-30) 01/23/19 16:54 Anion Gap 16 mmol/L 01/23/19 16:54 BUN 39 mg/dL (9-20) H 01/23/19 16:54 Creatinine 1.4 mg/dL (0.8-1.5) 01/23/19 16:54 Estimated GFR > 60 ml/min 01/23/19 16:54 BUN/Creatinine Ratio 28 % 01/23/19 16:54 Glucose 109 mg/dL (75-100) H 01/23/19 16:54 POC Glucose 151 (70-105) H 01/25/19 09:50 Osmolality 268 Mosm/kg 01/20/19 17:52 Lactic Acid 3.20 mmol/L (0.7-2.0) H* 01/19/19 10:24 Uric Acid 5.3 mg/dL (3.5-7.6) 01/20/19 17:52 Calcium 8.5 mg/dL (8.4-10.2) 01/23/19 16:54 Phosphorus 5.90 mg/dL (2.5-4.5) H 01/20/19 Unknown Magnesium 1.90 mg/dL (1.7-2.3) 01/20/19 Unknown Total Bilirubin 0.40 mg/dL (0.1-1.2) 01/21/19 02:45 Direct Bilirubin 0.3 mg/dL (0-0.2) H 01/21/19 02:45 Indirect Bilirubin 0.1 mg/dL 01/21/19 02:45 AST 59 units/L (5-40) H 01/21/19 02:45 ALT 28 units/L (7-56) 01/21/19 02:45 Alkaline Phosphatase 91 units/L (35-129) 01/21/19 02:45 Ammonia 34.0 umol/L (25-60) 01/19/19 07:48 Total Creatine Kinase < 7 units/L (55-170) L 01/19/19 07:46 Troponin T 0.031 ng/mL (0.00-0.029) H D 01/19/19 10:24 C-Reactive Protein 24.80 mg/dL (0.00-1.30) H 01/22/19 11:01 Total Protein 5.7 g/dL (6.3-8.2) L 01/21/19 02:45 Albumin 3.1 g/dL (3.9-5) L 01/21/19 02:45 Albumin/Globulin Ratio 1.2 % 01/21/19 02:45 Triglycerides 78 mg/dL (2-149) 01/19/19 10:24 Cholesterol 130 mg/dL (50-199) 01/19/19 10:24 LDL Cholesterol Direct 71 mg/dL (50-130) 01/19/19 10:24 HDL Cholesterol 53 mg/dL (40-59) 01/19/19 10:24 Cholesterol/HDL Ratio 2.45 % 01/19/19 10:24 TSH 8.530 mlU/mL (0.270-4.200) H 01/19/19 07:46 Free T4 0.92 ng/dL (0.76-1.46) 01/19/19 14:39 Urine Color Yellow (Yellow) 01/19/19 08:30 Urine Turbidity Turbid (Clear) 01/19/19 08:30 Urine pH 5.0 (5.0-7.0) 01/19/19 08:30 Ur Specific [place] 1.020 (1.003-1.030) 01/19/19 08:30 Urine Protein 100 mg/dl mg/dL (Negative) 01/19/19 08:30 Urine Glucose (UA) Neg mg/dL (Negative) 01/19/19 08:30 Urine Ketones Neg mg/dL (Negative) 01/19/19 08:30 Urine Blood Sm (Negative) 01/19/19 08:30 Urine Nitrite Neg (Negative) 01/19/19 08:30 Urine Bilirubin Sm (Negative) 01/19/19 08:30 Urine Ictotest Negative (Negative) 01/19/19 08:30 Urine Urobilinogen < 2.0 mg/dL (<2.0) 01/19/19 08:30 Ur Leukocyte Esterase Mod (Negative) 01/19/19 08:30 Urine WBC (Auto) > 182.0 /HPF (0.0-6.0) H 01/19/19 08:30 Urine RBC (Auto) 134.0 /HPF (0.0-6.0) 01/19/19 08:30 Urine Bacteria (Auto) 4+ /HPF (Negative) 01/19/19 08:30 Urine WBC Clumps 3+ /HPF 01/19/19 08:30 Ur Transition Epith Cell 6 /HPF 01/19/19 08:30 Amorphous Crystals 2+ 01/19/19 08:30 Urine Osmolality 225 Mosm/kg 01/21/19 02:50 Urine Sodium 64 mmol/L 01/21/19 02:50 Urine Potassium 31.83 mmol/L 01/21/19 02:50 Miscellaneous Test Flexitest 1 H 01/22/19 11:34 Blood Type O POSITIVE 01/21/19 12:09 Antibody Screen Negative 01/21/19 12:09 Crossmatch See Detail 01/21/19 12:09 Active Medications - Current Medications Current Medications: Generic Name Dose Route Start Last Admin Trade Name Freq PRN Reason Stop Dose Admin Acetaminophen 650 mg 01/21/19 02:23 01/21/19 03:59 Tylenol PO 650 mg Q6H PRN Administration Fever > 101 Amlodipine Besylate 10 mg 01/25/19 10:00 01/25/19 09:54 Norvasc PO 10 mg DAILY PRISCA Administration Dextrose 50 ml 01/19/19 16:42 01/21/19 16:53 D50w (25gm) Syringe IV 50 ml PRN PRN Administration Hypoglycemia Famotidine 20 mg 01/20/19 11:00 01/25/19 09:55 Pepcid IV 20 mg BID PRISCA Administration Hydralazine HCl 25 mg 01/24/19 22:00 01/25/19 06:20 Apresoline PO 25 mg Q8HR PRISCA Administration Hydrocortisone Sodium Succinate 150 mg 01/20/19 22:00 01/25/19 06:23 Solu-Cortef IV 150 mg Q8H PRISCA Administration Dopamine HCl/Dextrose 800 mg in 250 mls @ 4.082 mls/hr 01/19/19 20:00 01/22/19 10:45 Intropin Drip 800 Mg/D5w 250 Ml IV 0 mcg/kg/min TITR PRISCA 0 mls/hr Titration Protocol 2 MCG/KG/MIN Epinephrine 8 mg/ Sodium 250 mls @ 3.75 mls/hr 01/20/19 09:00 01/21/19 12:00 Chloride IV 0 mcg/min TITR PRISCA 0 mls/hr Titration Protocol 2 MCG/MIN Metronidazole 500 mg in 100 mls @ 100 mls/hr 01/22/19 10:00 01/25/19 06:23 Flagyl 500 Mg/100 Ml IV 100 mls/hr Q8HR PRISCA Administration Protocol Vancomycin HCl 1,500 mg/ 530 mls @ 333.333 mls/hr 01/23/19 10:00 01/25/19 09:57 Sodium Chloride IV 333.333 mls/hr Q24HR PRISCA Administration Meropenem 1,000 mg/ Sodium 100 mls @ 100 mls/hr 01/24/19 00:00 01/25/19 09:56 Chloride IV 100 mls/hr Q8H PRISCA Administration Protocol Potassium Chloride 20 meq/ 1,010 mls @ 125 mls/hr 01/24/19 09:00 01/25/19 04:42 Lactated Ringer's IV 125 mls/hr DIRECT PRISCA Administration Levetiracetam 1,000 mg/ 110 mls @ 400 mls/hr 01/25/19 11:00 Dextrose IV Q12HR [facility] Insulin Human Isoph/Insulin Regular 15 unit 01/24/19 17:00 01/25/19 09:55 Humulin 70/30 SUB-Q 15 unit BIDDIAB PRISCA Administration Insulin Human Lispro 0 unit 01/19/19 18:00 01/25/19 06:15 Humalog SUB-Q Not Given Q6HR [facility] Protocol Levothyroxine Sodium 200 mcg 01/25/19 06:00 01/25/19 06:20 Synthroid FEEDTUBE 200 mcg DAILY@0600 PRISCA Administration Metoprolol Tartrate 5 mg 01/22/19 14:00 01/25/19 06:21 Lopressor IV 5 mg Q6HR PRISCA Administration Miscellaneous Medication 15 mcg 01/25/19 10:00 Liothyronine Sodium [Cytomel] [id number] QAM PRISCA Oxcarbazepine 900 mg 01/24/19 22:00 01/25/19 09:54 Trileptal PO 900 mg BID PRISCA Administration Valproic Acid 1,000 mg 01/24/19 22:00 01/24/19 22:56 Depakene Liq FEEDTUBE 1,000 mg BID PRISCA Administration Nutrition/Malnutrition Assess - Dietary Evaluation Nutrition/Malnutrition Findings: Nutrition Notes Start: 01/20/19 12:26 Freq: Status: Active Protocol: Document 01/23/19 10:31 EB (Rec: 01/23/19 10:34 EB [id number]) Co-Sign 01/23/19 10:31 LP Nutrition Notes Initial or Follow up Reassessment Current Diagnosis Decubitus(Pressure Ulcer), Diabetes,Sepsis,Hypertension, Stroke,Hyperlipidemia Other Pertinent Diagnosis AMS, Bradycardia Current Diet No diet ordered Labs/Tests Na 136 K 3.1 BUN 3 Pertinent Medications Dopamine gtt, Epinephrine gtt, SoluCortef Height 5 ft 11 in Weight 100.6 kg [place] Body Weight (kg) 78.18 BMI 30.9 Weight Status Obese Subjective/Other Information Following for pt stability and TF consult once pt is appropriate for feeding. Pt continues instability and is awating MD order for TF. Percent of energy/protein needs met: 0%/0% Burn Absent Trauma Absent Current % PO Negligible #2 Nutrition Diagnosis Malnutrition Diagnosis Progress(for reassessment Continues documentation) #1 Nutrition Diagnosis Inadequate oral intake Diagnosis Progress(for reassessment Continues documentation) Is patient on ventilator? Yes Is Patient Ambulatory and/or Out of Bed No REE-([facility]-confined to bed) 2180.784 Kcal/Kg value to use for calculation 17 Approximate Energy Requirements Using 1710 kcal/Kg Calculation Used for Recommendations Kcal/kg Additional Notes Pro needs 2g/kgIBW: 156g/day Fluid needs 1ml/kcal Nutrition Intervention Nutrition Support: Start EN support when medically feasible Goal #1 Start EN support to meet nutrient needs Anticipated Discharge Needs: Continue EN support Follow-Up By: 01/27/19 Additional Comments F/U: TF consult - Attestation Statement I have reviewed and agreed w/ Malnutrition eval & tx plan: Yes
--- NOTE | 2019-01-25 10:35 | Progress Note ---
Assessment and Plan - Patient Problems (1) Bacteremia due to Enterobacter species Current Visit: Yes Status: Acute (2) Bacteremia due to Gram-negative bacteria Current Visit: Yes Status: Acute (3) Altered mental status Current Visit: Yes Status: Acute (4) Chronic ulcer of sacral region Current Visit: Yes Status: Acute (5) History of CVA (cerebrovascular accident) Current Visit: Yes Status: Acute (6) Hyperkalemia Current Visit: Yes Status: Acute (7) Hyponatremia Current Visit: Yes Status: Acute (8) Sepsis Current Visit: Yes Status: Acute (9) Diabetes mellitus Current Visit: Yes Status: Chronic (10) Acute hypoxemic respiratory failure Current Visit: No Status: Acute (11) Chronic respiratory failure Current Visit: No Status: Acute (12) Fever Current Visit: No Status: Acute (13) Right upper lobe pneumonia Current Visit: No Status: Chronic (14) Seizure disorder Current Visit: No Status: Chronic Subjective Principal diagnosis: hypoxic/hypercarbic respiratory failure Interval history: on vent Objective Vital Signs - 12hr 01/24/19 01/24/19 01/24/19 22:54 23:00 23:14 Temperature 98.8 F Pulse Rate 75 75 Pulse Rate [ From Monitor] Respiratory 16 Rate Blood Pressure 148/82 156/81 O2 Sat by Pulse 95 Oximetry 01/24/19 01/24/19 01/24/19 23:20 23:30 23:38 Temperature Pulse Rate 65 89 82 Pulse Rate [ From Monitor] Respiratory 19 16 Rate Blood Pressure 156/81 156/81 171/109 O2 Sat by Pulse 98 97 Oximetry 01/25/19 01/25/19 01/25/19 00:00 00:30 01:00 Temperature Pulse Rate 78 62 65 Pulse Rate [ 68 From Monitor] Respiratory 11 L 16 16 Rate Blood Pressure 150/90 130/74 130/74 O2 Sat by Pulse 93 95 Oximetry 01/25/19 01/25/19 01/25/19 01:30 02:00 02:30 Temperature Pulse Rate 64 63 61 Pulse Rate [ From Monitor] Respiratory 15 17 16 Rate Blood Pressure 132/73 135/82 123/69 O2 Sat by Pulse 94 94 Oximetry 01/25/19 01/25/19 01/25/19 03:00 03:22 03:30 Temperature Pulse Rate 77 72 65 Pulse Rate [ From Monitor] Respiratory 16 16 Rate Blood Pressure 123/69 155/98 129/75 O2 Sat by Pulse 96 97 95 Oximetry 01/25/19 01/25/19 01/25/19 03:36 04:00 04:30 Temperature 97.9 F Pulse Rate 60 69 Pulse Rate [ 71 From Monitor] Respiratory 16 16 Rate Blood Pressure 125/68 144/72 O2 Sat by Pulse 96 Oximetry 01/25/19 01/25/19 01/25/19 04:49 05:00 05:30 Temperature Pulse Rate 60 66 Pulse Rate [ From Monitor] Respiratory 16 17 Rate Blood Pressure 144/72 139/71 139/71 O2 Sat by Pulse 96 Oximetry 01/25/19 01/25/19 01/25/19 06:00 06:20 06:21 Temperature Pulse Rate 64 62 Pulse Rate [ From Monitor] Respiratory 16 Rate Blood Pressure 138/63 138/63 138/63 O2 Sat by Pulse Oximetry 01/25/19 01/25/19 07:25 08:32 Temperature 98.6 F Pulse Rate 62 Pulse Rate [ From Monitor] Respiratory Rate Blood Pressure 158/108 O2 Sat by Pulse 97 Oximetry Constitutional: no acute distress, comatose, other (critically ill) Eyes: non-icteric ENT: other (on vent intubated AC/ PRVC r 16 fio2 45 p10 Ti 0.8 mv 9.2) Neck: no lymphadenopathy, no JVD, other (right IJ in place) Ascultation: Bilateral: diminished breath sounds, rales (sporadic) Cardiovascular: regular rate and rhythm Gastrointestinal: normoactive bowel sounds, other (distended) Extremities: other (right femoral line) Neurologic: unable to assess CBC and BMP: 01/23/19 04:25 01/23/19 16:54 ABG, PT/INR, D-dimer: ABG POC ABG pH 7.479 (7.35-7.45) H 01/25/19 03:52 POC ABG pCO2 35.5 (35-45) 01/25/19 03:52 POC ABG pO2 88 (80-105) 01/25/19 03:52 POC ABG HCO3 26.4 (22-26 mml/L) 01/25/19 03:52 POC ABG Total CO2 27 (23-27mmol/L) 01/25/19 03:52 POC ABG O2 Sat 97 01/25/19 03:52 PT/INR, D-dimer PT 15.1 Sec. (12.2-14.9) H 01/19/19 Unknown INR 1.12 (0.87-1.13) 01/19/19 Unknown Abnormal lab findings: Abnormal Labs 01/19/19 01/19/19 01/19/19 07:46 07:46 07:46 WBC RBC Hgb Hct MCV MCH RDW Plt Count Seg Neuts % (Manual) Lymphocytes % (Manual) Monocytes % (Manual) Nucleated RBC % Seg Neutrophils # Man Lymphocytes # (Manual) Monocytes # (Manual) PT INR 0.86 L POC ABG pH POC ABG pCO2 POC ABG pO2 Sodium 114 L* Potassium 6.5 H* Chloride 77.4 L Carbon Dioxide BUN 33 H Creatinine Glucose 128 H POC Glucose Lactic Acid 2.50 H* Calcium Phosphorus Direct Bilirubin AST Total Creatine Kinase < 7 L Troponin T C-Reactive Protein Total Protein Albumin TSH Urine WBC (Auto) Miscellaneous Test Crossmatch 01/19/19 01/19/19 01/19/19 07:46 07:48 08:30 WBC 4.2 L RBC 3.07 L Hgb 10.1 L Hct 30.7 L MCV 100 H MCH 33 H RDW 17.4 H Plt Count Seg Neuts % (Manual) 72.0 H Lymphocytes % (Manual) 11.0 L Monocytes % (Manual) 13.0 H Nucleated RBC % 1.0 H Seg Neutrophils # Man Lymphocytes # (Manual) 0.5 L Monocytes # (Manual) PT INR POC ABG pH POC ABG pCO2 POC ABG pO2 Sodium Potassium Chloride Carbon Dioxide BUN Creatinine Glucose POC Glucose Lactic Acid Calcium Phosphorus Direct Bilirubin AST Total Creatine Kinase Troponin T C-Reactive Protein Total Protein Albumin TSH 8.530 H Urine WBC (Auto) > 182.0 H Miscellaneous Test Crossmatch 01/19/19 01/19/19 01/19/19 10:24 10:24 10:24 WBC RBC Hgb Hct MCV MCH RDW Plt Count Seg Neuts % (Manual) Lymphocytes % (Manual) Monocytes % (Manual) Nucleated RBC % Seg Neutrophils # Man Lymphocytes # (Manual) Monocytes # (Manual) PT INR POC ABG pH 7.305 L POC ABG pCO2 46.8 H POC ABG pO2 Sodium Potassium Chloride Carbon Dioxide BUN Creatinine Glucose POC Glucose Lactic Acid 3.20 H* Calcium Phosphorus Direct Bilirubin AST Total Creatine Kinase Troponin T 0.031 H D C-Reactive Protein Total Protein Albumin TSH Urine WBC (Auto) Miscellaneous Test Crossmatch 01/19/19 01/19/19 01/19/19 14:39 15:04 17:00 WBC RBC Hgb Hct MCV MCH RDW Plt Count Seg Neuts % (Manual) Lymphocytes % (Manual) Monocytes % (Manual) Nucleated RBC % Seg Neutrophils # Man Lymphocytes # (Manual) Monocytes # (Manual) PT INR POC ABG pH 7.320 L POC ABG pCO2 POC ABG pO2 58 L Sodium 116 L* 123 L D Potassium 5.7 H Chloride 82.9 L 89.8 L Carbon Dioxide 17 L BUN 31 H 28 H Creatinine Glucose 129 H 135 H POC Glucose Lactic Acid Calcium 8.1 L Phosphorus 4.80 H Direct Bilirubin AST Total Creatine Kinase Troponin T C-Reactive Protein Total Protein Albumin TSH Urine WBC (Auto) Miscellaneous Test Crossmatch 01/19/19 01/19/19 01/19/19 17:00 22:40 Unknown WBC RBC 3.05 L Hgb 10.0 L Hct 30.7 L MCV 101 H MCH 33 H RDW 16.7 H Plt Count Seg Neuts % (Manual) Lymphocytes % (Manual) Monocytes % (Manual) Nucleated RBC % Seg Neutrophils # Man Lymphocytes # (Manual) Monocytes # (Manual) PT 15.1 H INR POC ABG pH POC ABG pCO2 POC ABG pO2 Sodium 121 L Potassium 5.2 H Chloride 86.9 L Carbon Dioxide BUN 30 H Creatinine Glucose POC Glucose Lactic Acid Calcium Phosphorus 5.20 H Direct Bilirubin AST Total Creatine Kinase Troponin T C-Reactive Protein Total Protein Albumin TSH Urine WBC (Auto) Miscellaneous Test Crossmatch 01/20/19 01/20/19 01/20/19 04:20 16:00 17:39 WBC RBC Hgb Hct MCV MCH RDW Plt Count Seg Neuts % (Manual) Lymphocytes % (Manual) Monocytes % (Manual) Nucleated RBC % Seg Neutrophils # Man Lymphocytes # (Manual) Monocytes # (Manual) PT INR POC ABG pH POC ABG pCO2 POC ABG pO2 Sodium 120 L 119 L* Potassium 5.9 H 7.0 H* Chloride 87.0 L 85.7 L Carbon Dioxide 20 L 18 L BUN 31 H 35 H Creatinine 1.9 H Glucose 120 H POC Glucose 40 L Lactic Acid Calcium 8.1 L 8.0 L Phosphorus 5.10 H 5.80 H Direct Bilirubin AST Total Creatine Kinase Troponin T C-Reactive Protein Total Protein Albumin TSH Urine WBC (Auto) Miscellaneous Test Crossmatch 01/20/19 01/20/19 01/21/19 22:33 Unknown 00:18 WBC RBC Hgb Hct MCV MCH RDW Plt Count Seg Neuts % (Manual) Lymphocytes % (Manual) Monocytes % (Manual) Nucleated RBC % Seg Neutrophils # Man Lymphocytes # (Manual) Monocytes # (Manual) PT INR POC ABG pH POC ABG pCO2 POC ABG pO2 Sodium 125 L D 120 L Potassium 6.2 H* 6.2 H* Chloride 87.3 L 85.8 L Carbon Dioxide 17 L BUN 37 H 33 H Creatinine 1.9 H 1.6 H Glucose 71 L POC Glucose 152 H Lactic Acid Calcium 8.1 L Phosphorus 5.90 H Direct Bilirubin AST Total Creatine Kinase Troponin T C-Reactive Protein Total Protein Albumin TSH Urine WBC (Auto) Miscellaneous Test Crossmatch 01/21/19 01/21/19 01/21/19 02:45 02:45 02:45 WBC 18.8 H RBC 2.36 L Hgb 7.6 L Hct 25.1 L MCV 99 H MCH RDW 16.4 H Plt Count 97 L Seg Neuts % (Manual) 29.0 L Lymphocytes % (Manual) 4.0 L Monocytes % (Manual) Nucleated RBC % 5.0 H Seg Neutrophils # Man Lymphocytes # (Manual) 0.8 L Monocytes # (Manual) PT INR POC ABG pH POC ABG pCO2 POC ABG pO2 Sodium 125 L Potassium 5.8 H Chloride 86.9 L Carbon Dioxide BUN 35 H Creatinine 1.9 H Glucose 119 H POC Glucose Lactic Acid Calcium Phosphorus Direct Bilirubin 0.3 H AST 59 H Total Creatine Kinase Troponin T C-Reactive Protein Total Protein 5.7 L Albumin 3.1 L TSH Urine WBC (Auto) Miscellaneous Test Crossmatch 01/21/19 01/21/19 01/21/19 05:26 05:42 06:41 WBC RBC Hgb Hct MCV MCH RDW Plt Count Seg Neuts % (Manual) Lymphocytes % (Manual) Monocytes % (Manual) Nucleated RBC % Seg Neutrophils # Man Lymphocytes # (Manual) Monocytes # (Manual) PT INR POC ABG pH 7.274 L POC ABG pCO2 58.6 H POC ABG pO2 77 L Sodium Potassium Chloride Carbon Dioxide BUN Creatinine Glucose POC Glucose 182 H Lactic Acid Calcium Phosphorus Direct Bilirubin AST Total Creatine Kinase Troponin T C-Reactive Protein Total Protein Albumin TSH Urine WBC (Auto) Miscellaneous Test Crossmatch 01/21/19 01/21/19 01/21/19 12:09 12:41 17:44 WBC RBC Hgb Hct MCV MCH RDW Plt Count Seg Neuts % (Manual) Lymphocytes % (Manual) Monocytes % (Manual) Nucleated RBC % Seg Neutrophils # Man Lymphocytes # (Manual) Monocytes # (Manual) PT INR POC ABG pH POC ABG pCO2 POC ABG pO2 Sodium Potassium Chloride Carbon Dioxide BUN Creatinine Glucose POC Glucose 129 H 174 H Lactic Acid Calcium Phosphorus Direct Bilirubin AST Total Creatine Kinase Troponin T C-Reactive Protein Total Protein Albumin TSH Urine WBC (Auto) Miscellaneous Test Crossmatch See Detail 01/21/19 01/21/19 01/22/19 20:00 23:47 04:17 WBC 34.5 H RBC 2.34 L Hgb 7.5 L Hct 22.7 L MCV 97 H MCH RDW 16.0 H Plt Count 36 L Seg Neuts % (Manual) 77.0 H Lymphocytes % (Manual) 1.0 L Monocytes % (Manual) Nucleated RBC % 1.0 H Seg Neutrophils # Man 26.6 H Lymphocytes # (Manual) 0.3 L Monocytes # (Manual) 1.4 H PT INR POC ABG pH POC ABG pCO2 POC ABG pO2 Sodium 131 L Potassium 3.5 L D Chloride 88.6 L Carbon Dioxide BUN 32 H Creatinine Glucose 117 H POC Glucose 110 H Lactic Acid Calcium Phosphorus Direct Bilirubin AST Total Creatine Kinase Troponin T C-Reactive Protein Total Protein Albumin TSH Urine WBC (Auto) Miscellaneous Test Crossmatch 01/22/19 01/22/19 01/22/19 04:17 04:45 05:16 WBC RBC Hgb Hct MCV MCH RDW Plt Count Seg Neuts % (Manual) Lymphocytes % (Manual) Monocytes % (Manual) Nucleated RBC % Seg Neutrophils # Man Lymphocytes # (Manual) Monocytes # (Manual) PT INR POC ABG pH 7.492 H POC ABG pCO2 POC ABG pO2 64 L Sodium 131 L Potassium 2.9 L* Chloride 89.8 L Carbon Dioxide BUN 30 H Creatinine Glucose POC Glucose 116 H Lactic Acid Calcium Phosphorus Direct Bilirubin AST Total Creatine Kinase Troponin T C-Reactive Protein Total Protein Albumin TSH Urine WBC (Auto) Miscellaneous Test Crossmatch 01/22/19 01/22/19 01/22/19 11:01 11:34 12:01 WBC RBC Hgb Hct MCV MCH RDW Plt Count Seg Neuts % (Manual) Lymphocytes % (Manual) Monocytes % (Manual) Nucleated RBC % Seg Neutrophils # Man Lymphocytes # (Manual) Monocytes # (Manual) PT INR POC ABG pH POC ABG pCO2 POC ABG pO2 Sodium Potassium Chloride Carbon Dioxide BUN Creatinine Glucose POC Glucose 119 H Lactic Acid Calcium Phosphorus Direct Bilirubin AST Total Creatine Kinase Troponin T C-Reactive Protein 24.80 H Total Protein Albumin TSH Urine WBC (Auto) Miscellaneous Test Flexitest 1 H Crossmatch 01/22/19 01/22/19 01/23/19 16:50 23:38 04:25 WBC 26.4 H RBC 2.44 L Hgb 7.8 L Hct 23.7 L MCV 97 H MCH RDW 16.2 H Plt Count 22 L Seg Neuts % (Manual) Lymphocytes % (Manual) 1.0 L Monocytes % (Manual) Nucleated RBC % 11.0 H Seg Neutrophils # Man 0.0 L Lymphocytes # (Manual) 0.0 L Monocytes # (Manual) PT INR POC ABG pH POC ABG pCO2 POC ABG pO2 Sodium 132 L Potassium 2.8 L* Chloride 92.4 L Carbon Dioxide BUN 29 H Creatinine Glucose POC Glucose 111 H Lactic Acid Calcium Phosphorus Direct Bilirubin AST Total Creatine Kinase Troponin T C-Reactive Protein Total Protein Albumin TSH Urine WBC (Auto) Miscellaneous Test Crossmatch 01/23/19 01/23/19 01/23/19 04:55 05:42 08:39 WBC RBC Hgb Hct MCV MCH RDW Plt Count Seg Neuts % (Manual) Lymphocytes % (Manual) Monocytes % (Manual) Nucleated RBC % Seg Neutrophils # Man Lymphocytes # (Manual) Monocytes # (Manual) PT INR POC ABG pH 7.488 H POC ABG pCO2 POC ABG pO2 55 L Sodium 136 L Potassium 3.1 L Chloride 94.5 L Carbon Dioxide BUN 36 H Creatinine Glucose POC Glucose 107 H Lactic Acid Calcium Phosphorus Direct Bilirubin AST Total Creatine Kinase Troponin T C-Reactive Protein Total Protein Albumin TSH Urine WBC (Auto) Miscellaneous Test Crossmatch 01/23/19 01/23/19 01/23/19 12:08 16:54 18:06 WBC RBC Hgb Hct MCV MCH RDW Plt Count Seg Neuts % (Manual) Lymphocytes % (Manual) Monocytes % (Manual) Nucleated RBC % Seg Neutrophils # Man Lymphocytes # (Manual) Monocytes # (Manual) PT INR POC ABG pH POC ABG pCO2 POC ABG pO2 Sodium Potassium 3.2 L Chloride 96.9 L Carbon Dioxide BUN 39 H Creatinine Glucose 109 H POC Glucose 108 H 115 H Lactic Acid Calcium Phosphorus Direct Bilirubin AST Total Creatine Kinase Troponin T C-Reactive Protein Total Protein Albumin TSH Urine WBC (Auto) Miscellaneous Test Crossmatch 01/24/19 01/24/19 01/24/19 00:44 03:47 05:38 WBC RBC Hgb Hct MCV MCH RDW Plt Count Seg Neuts % (Manual) Lymphocytes % (Manual) Monocytes % (Manual) Nucleated RBC % Seg Neutrophils # Man Lymphocytes # (Manual) Monocytes # (Manual) PT INR POC ABG pH 7.504 H POC ABG pCO2 34.9 L POC ABG pO2 62 L Sodium Potassium Chloride Carbon Dioxide BUN Creatinine Glucose POC Glucose 137 H 120 H Lactic Acid Calcium Phosphorus Direct Bilirubin AST Total Creatine Kinase Troponin T C-Reactive Protein Total Protein Albumin TSH Urine WBC (Auto) Miscellaneous Test Crossmatch 01/24/19 01/24/19 01/24/19 07:48 11:43 17:49 WBC RBC Hgb Hct MCV MCH RDW Plt Count Seg Neuts % (Manual) Lymphocytes % (Manual) Monocytes % (Manual) Nucleated RBC % Seg Neutrophils # Man Lymphocytes # (Manual) Monocytes # (Manual) PT INR POC ABG pH POC ABG pCO2 POC ABG pO2 Sodium Potassium Chloride Carbon Dioxide BUN Creatinine Glucose POC Glucose 112 H 126 H 149 H Lactic Acid Calcium Phosphorus Direct Bilirubin AST Total Creatine Kinase Troponin T C-Reactive Protein Total Protein Albumin TSH Urine WBC (Auto) Miscellaneous Test Crossmatch 01/24/19 01/25/19 01/25/19 23:35 03:52 05:15 WBC RBC Hgb Hct MCV MCH RDW Plt Count Seg Neuts % (Manual) Lymphocytes % (Manual) Monocytes % (Manual) Nucleated RBC % Seg Neutrophils # Man Lymphocytes # (Manual) Monocytes # (Manual) PT INR POC ABG pH 7.479 H POC ABG pCO2 POC ABG pO2 Sodium Potassium Chloride Carbon Dioxide BUN Creatinine Glucose POC Glucose 128 H 126 H Lactic Acid Calcium Phosphorus Direct Bilirubin AST Total Creatine Kinase Troponin T C-Reactive Protein Total Protein Albumin TSH Urine WBC (Auto) Miscellaneous Test Crossmatch 01/25/19 09:50 WBC RBC Hgb Hct MCV MCH RDW Plt Count Seg Neuts % (Manual) Lymphocytes % (Manual) Monocytes % (Manual) Nucleated RBC % Seg Neutrophils # Man Lymphocytes # (Manual) Monocytes # (Manual) PT INR POC ABG pH POC ABG pCO2 POC ABG pO2 Sodium Potassium Chloride Carbon Dioxide BUN Creatinine Glucose POC Glucose 151 H Lactic Acid Calcium Phosphorus Direct Bilirubin AST Total Creatine Kinase Troponin T C-Reactive Protein Total Protein Albumin TSH Urine WBC (Auto) Miscellaneous Test Crossmatch
[2019-01-25] MEDS: DepaKENE Liq FEEDTUBE SCH ×2 (10:57→22:42)
[2019-01-25] MEDS: KEPPRA 1,000 MG in D5W 100 ML IV SCH ×2 (12:25→22:43)
[2019-01-25 16:02] LABS: BUN/Creatinine Ratio 34; Blood Urea Nitrogen 41 mg/dL (9-20); Calcium 8.2 mg/dL (8.4-10.2); Hemolysis Index 23
--- NOTE | 2019-01-25 16:23 | Progress Note ---
Assessment and Plan - Patient Problems (1) Hypokalemia Current Visit: Yes Status: Acute Plan to address problem: Hypokalemia we'll give potassium chloride Recheck potassium and magnesium (2) Acute kidney injury Current Visit: Yes Status: Acute Plan to address problem: Acute kidney injury Creatinine is improving However has anasarca with fluids. Stop Fluids for now and give 1 dose of Bumex Stricter inputs and output avoid nephro toxic medications Renal dosing for all medications (3) Sepsis Current Visit: Yes Status: Acute Plan to address problem: Sepsis Continue broad-spectrum antibiotics Blood cultures with enterococcus (4) Acute hypoxemic respiratory failure Current Visit: No Status: Acute Plan to address problem: Acute hypoxemic respiratory failure Currently intubated Discontinue intravenous fluids we'll give a dose of Bumex given anasarca Strict input and output Subjective Principal diagnosis: hypoxic/hypercarbic respiratory failure Interval history: 63 year gentleman with sepsis and renal failure acute hypoxemic respiratory failure on broad-spectrum antibiotics patient was seen today remains intubated has generalized edema Mostly nonverbal Objective - Vital Signs Vital signs: Vital Signs - 12hr 01/25/19 01/25/19 01/25/19 04:30 04:49 05:00 Temperature Pulse Rate 69 60 Pulse Rate [ From Monitor] Respiratory 16 16 Rate Blood Pressure 144/72 144/72 139/71 O2 Sat by Pulse Oximetry 01/25/19 01/25/19 01/25/19 05:30 06:00 06:20 Temperature Pulse Rate 66 64 62 Pulse Rate [ From Monitor] Respiratory 17 16 Rate Blood Pressure 139/71 138/63 138/63 O2 Sat by Pulse 96 Oximetry 01/25/19 01/25/19 01/25/19 06:21 06:30 07:01 Temperature Pulse Rate 66 58 L Pulse Rate [ From Monitor] Respiratory 16 16 Rate Blood Pressure 138/63 138/63 115/70 O2 Sat by Pulse 97 94 Oximetry 01/25/19 01/25/19 01/25/19 07:25 07:30 08:00 Temperature 98.6 F Pulse Rate 53 L Pulse Rate [ 69 From Monitor] Respiratory 16 16 Rate Blood Pressure 119/77 O2 Sat by Pulse 94 97 Oximetry 01/25/19 01/25/19 01/25/19 08:01 08:31 08:32 Temperature Pulse Rate 63 77 62 Pulse Rate [ From Monitor] Respiratory 15 16 Rate Blood Pressure 144/78 161/105 158/108 O2 Sat by Pulse 96 95 97 Oximetry 01/25/19 01/25/19 01/25/19 09:01 09:31 10:00 Temperature Pulse Rate 66 71 74 Pulse Rate [ From Monitor] Respiratory 16 16 16 Rate Blood Pressure 154/80 152/80 158/92 O2 Sat by Pulse 95 96 97 Oximetry 01/25/19 01/25/19 01/25/19 10:30 11:01 11:41 Temperature Pulse Rate 74 76 58 L Pulse Rate [ From Monitor] Respiratory 14 16 Rate Blood Pressure 164/93 162/91 150/82 O2 Sat by Pulse 96 96 96 Oximetry 01/25/19 01/25/19 01/25/19 11:50 12:00 15:01 Temperature 98.1 F Pulse Rate 50 L Pulse Rate [ 61 From Monitor] Respiratory 16 Rate Blood Pressure 130/73 O2 Sat by Pulse 97 97 Oximetry 01/25/19 01/25/19 15:33 16:00 Temperature 97.7 F Pulse Rate 53 L Pulse Rate [ From Monitor] Respiratory Rate Blood Pressure 115/71 O2 Sat by Pulse Oximetry - General Appearance General appearance: well-developed, obese EENT: ATNC, PERRL, mucous membranes moist Neck: no JVD Respiratory: Present: Decreased Breath Sounds Cardiology: regular, S1S2 Gastrointestinal: normal, normoactive bowel sounds Integumentary: no rash Neurologic: alert and oriented x3, CN 3-12 intact Musculoskeletal: deferred Psychiatric: mood/affect appropriate - Lab 01/23/19 04:25 01/25/19 15:30 Most recent lab results Calcium 8.2 mg/dL (8.4-10.2) L 01/25/19 15:30 Phosphorus 5.90 mg/dL (2.5-4.5) H 01/20/19 Unknown Magnesium 1.80 mg/dL (1.7-2.3) 01/25/19 15:30 Urine Sodium 64 mmol/L 01/21/19 02:50 - Imaging Chest x-ray: image reviewed Medications & Allergies - Medications Allergies/Adverse Reactions: Allergies No Known Allergies Allergy (Verified 01/19/19 08:23) Home Medications: Home Medications Medication Instructions Recorded Confirmed Last Taken Type Baclofen [Lioresal] 20 mg PO TID 10/18/17 01/24/19 Unknown History Levothyroxine (Nf) [Synthroid (Nf)] 200 mcg NGTUBE QAM 10/18/17 01/24/19 Unknown History Liothyronine Sodium [Cytomel] 15 mcg NGTUBE QAM 10/18/17 01/24/19 10/30/17 History OXcarbazepine [Trileptal] 900 mg NGTUBE BID 10/18/17 01/24/19 Unknown History Valproic Acid (As Sodium Salt) 20 ml NGTUBE Q12H 10/18/17 01/24/19 Unknown History [Depakene] amLODIPine [Norvasc] 10 mg NGTUBE DAILY 10/18/17 01/24/19 Unknown History levETIRAcetam [Keppra TAB] 1,000 mg NGTUBE BID 10/18/17 01/24/19 Unknown History Insulin Aspart [NovoLOG Flexpen] See Protocol SQ Q6H 30 Days 10/26/17 01/24/19 Unknown Rx insuln.pen hydrALAZINE [Apresoline TAB] 25 mg PO Q8HR #90 tablet 10/26/17 01/24/19 Unknown Rx Polyethylene Glycol 3350 [Miralax 17 gm PO BID #30 packet 11/10/17 01/24/19 Unknown Rx 3350] Insulin NPH/Regular [NovoLIN 70/30] 15 unit SQ BIDDIAB 01/24/19 01/24/19 Unknown History Active Medications: Generic Name Dose Route Start Last Admin Trade Name Freq PRN Reason Stop Dose Admin Acetaminophen 650 mg 01/21/19 02:23 01/21/19 03:59 Tylenol PO 650 mg Q6H PRN Administration Fever > 101 Amlodipine Besylate 10 mg 01/25/19 10:00 01/25/19 09:54 Norvasc PO 10 mg DAILY PRISCA Administration Bumetanide 1 mg 01/25/19 16:17 Bumex IV 01/25/19 16:18 ONCE ONE Dextrose 50 ml 01/19/19 16:42 01/21/19 16:53 D50w (25gm) Syringe IV 50 ml PRN PRN Administration Hypoglycemia Famotidine 20 mg 01/20/19 11:00 01/25/19 09:55 Pepcid IV 20 mg BID PRISCA Administration Hydralazine HCl 25 mg 01/24/19 22:00 01/25/19 15:33 Apresoline PO 25 mg Q8HR PRISCA Administration Hydrocortisone Sodium Succinate 150 mg 01/20/19 22:00 01/25/19 15:34 Solu-Cortef IV 150 mg Q8H PRISCA Administration Dopamine HCl/Dextrose 800 mg in 250 mls @ 4.082 mls/hr 01/19/19 20:00 01/22/19 10:45 Intropin Drip 800 Mg/D5w 250 Ml IV 0 mcg/kg/min TITR PRISCA 0 mls/hr Titration Protocol 2 MCG/KG/MIN Epinephrine 8 mg/ Sodium 250 mls @ 3.75 mls/hr 01/20/19 09:00 01/21/19 12:00 Chloride IV 0 mcg/min TITR PRISCA 0 mls/hr Titration Protocol 2 MCG/MIN Metronidazole 500 mg in 100 mls @ 100 mls/hr 01/22/19 10:00 01/25/19 15:46 Flagyl 500 Mg/100 Ml IV 100 mls/hr Q8HR PRISCA Administration Protocol Vancomycin HCl 1,500 mg/ 530 mls @ 333.333 mls/hr 01/23/19 10:00 01/25/19 09:57 Sodium Chloride IV 333.333 mls/hr Q24HR PRIS[facility] Administration Meropenem 1,000 mg/ Sodium 100 mls @ 100 mls/hr 01/24/19 00:00 01/25/19 09:56 Chloride IV 100 mls/hr Q8H PRISCA Administration Protocol Levetiracetam 1,000 mg/ 110 mls @ 400 mls/hr 01/25/19 11:00 Dextrose IV Q12HR [facility] Insulin Human Isoph/Insulin Regular 15 unit 01/24/19 17:00 01/25/19 09:55 Humulin 70/30 SUB-Q 15 unit BIDDIAB [facility] Administration Insulin Human Lispro 0 unit 01/19/19 18:00 01/25/19 15:25 Humalog SUB-Q Not Given Q6HR [facility] Protocol Levothyroxine Sodium 200 mcg 01/25/19 06:00 01/25/19 06:20 Synthroid FEEDTUBE 200 mcg DAILY@0600 [facility] Administration Metoprolol Tartrate 5 mg 01/22/19 14:00 01/25/19 06:21 Lopressor IV 5 mg Q6HR [facility] Administration Miscellaneous Medication 15 mcg 01/25/19 10:00 Liothyronine Sodium [Cytomel] NGTUBE QAM [facility] Oxcarbazepine 900 mg 01/24/19 22:00 01/25/19 09:54 Trileptal PO 900 mg BID [facility] Administration Valproic Acid 1,000 mg 01/24/19 22:00 01/25/19 10:57 Depakene Liq FEEDTUBE 1,000 mg BID [facility] Administration
[2019-01-25] MEDS ORDERED: BUMEX IV ONE (16:30)
[2019-01-25] MEDS ORDERED: KCL 10MEQ/100ML 10 MEQ/100 ML BAG IV SCH (17:00)
[2019-01-26] MEDS: MERREM 1,000 MG in NACL 0.9% 100 ML IV SCH ×4 (00:15→23:46)
[2019-01-26] MEDS: FLAGYL 500 MG/100 ML 500 MG/100 ML BAG IV SCH ×3 (00:16→13:20)
[2019-01-26] MEDS: LOPRESSOR IV SCH ×4 (00:17→20:24)
[2019-01-26] MEDS: HumaLOG SUB-Q SCH ×4 (00:18→20:24)
[2019-01-26 05:31] LABS: Hematocrit 27.7 % (35.5-45.6); Hemoglobin 9.2 gm/dl (11.8-15.2); Mean Corpuscular HGB Conc 33 % (32-34); Mean Corpuscular Volume 98 fl (84-94); Red Blood Count 2.82 M/mm3 (3.65-5.03); Red Cell Distribution Width 16.4 % (13.2-15.2)
[2019-01-26 05:39] LABS: Platelet Count 46 K/mm3 (140-440)
[2019-01-26 05:54] LABS: BUN/Creatinine Ratio 36; Blood Urea Nitrogen 40 mg/dL (9-20); Calcium 8.5 mg/dL (8.4-10.2); Hemolysis Index 99
[2019-01-26] MEDS: APRESOLINE PO SCH ×3 (06:07→21:07)
[2019-01-26] MEDS: SYNTHROID FEEDTUBE SCH (06:07)
--- NOTE | 2019-01-26 09:39 | Progress Note ---
Assessment and Plan Cultures: Blood culture 01/19/2019 Enterococcus faecalis 2 of 4 bottles and MDR Pseudomonas 1 of 4 bottles Urine culture 01/19/2019 Klebsiella. 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 Per , he is contracted and non verbal at baseline but then she noted cold temperature, worsening sleepiness and wheezing for 2-3 days: 1) Shock likely mixed cardiogenic due to symptomatic bradycardia +/- ?mixedema coma +/- septic: Improved. Septic etiology most likely Enterococcus bacteremia +/- Klebsiella UTI +/- pneumonia. CRP 24. Procalcitonin 129.30 2) Enterococcus and MDR Pseudomonas bacteremia: unclear source, ?lung; TTE no vegetations. 3) Klebsiella UTI: UA 185 wbc, LE moderate. Urine culture 01/19/2019 Klebsiella 4) Pneumonia: likely aspiration pneumonia. Sputum, MDR Pseudomonas . CXR showed extensive airspace disease in right lung and in left perihilar region, new in comparison to prior examination. 5) Acute on chronic encephalopathy: multifactorial from hyponatremia, symptomatic bradycardia and sepsis 6) Uncontrolled hypothyroidism Recommendations: - contact isolation due to MDR Pseudomonas - continue meropenem, D3 - continue vancomycin D4 -Discontinue flagyl -follow-up repeat blood cultures -Repeat Procalcitonin [facility] M: [id number] O:[phone] Subjective Date of service: 01/26/19 Principal diagnosis: hypoxic/hypercarbic respiratory failure Interval history: Patient seen and examined. Intubated. Unresponsive. No fevers. Objective - Exam Narrative Exam: General appearance: intubated in NAD, Does not follow commands. Eyes: anicteric sclerae, moist conjunctivae; no lid-lag; PERRLA HENT: Atraumatic; oropharynx +ETT +NGT . Neck: Trachea midline; supple, no thyromegaly or lymphadenopathy Lungs: bilateral rhonchi CV: irreg Abdomen: Soft, non-tender;+PEG Extremities: bilateral leg edema, right hand edema Skin: Normal temperature, turgor and texture; no rash, ulcers or subcutaneous nodules Psych: calm. Neuro: +repetitive eye flicker, non verbal, contracted. - Constitutional Vitals: Vital Signs Temp Pulse Resp BP Pulse Ox 98.1 F 67 4 L 168/88 98 01/26/19 08:00 01/26/19 08:19 01/26/19 08:19 01/26/19 08:19 01/26/19 08:19 Temperature -Last 24 Hours Temperature 98.1 F Temperature 98.9 F Temperature 98.1 F Temperature 98.5 F Temperature 97.7 F Temperature 98.1 F - Labs CBC & Chem 7: 01/26/19 04:45 01/26/19 04:45 Labs: Abnormal lab results 01/25/19 01/25/19 01/25/19 Range/Units 09:50 14:17 15:30 RBC (3.65-5.03) M/mm3 Hgb (11.8-15.2) gm/dl Hct (35.5-45.6) % MCV (84-94) fl MCH (28-32) pg RDW (13.2-15.2) % Plt Count (140-440) K/mm3 POC ABG pH (7.35-7.45) POC ABG pO2 (80-105) Potassium 3.2 L (3.6-5.0) mmol/L BUN 41 H (9-20) mg/dL Glucose 123 H (75-100) mg/dL POC Glucose 151 H 132 H (70-105) Calcium 8.2 L (8.4-10.2) mg/dL 01/25/19 01/26/19 01/26/19 Range/Units 17:40 04:45 04:45 RBC 2.82 L (3.65-5.03) M/mm3 Hgb 9.2 L (11.8-15.2) gm/dl Hct 27.7 L (35.5-45.6) % MCV 98 H (84-94) fl MCH 33 H (28-32) pg RDW 16.4 H (13.2-15.2) % Plt Count 46 L (140-440) K/mm3 POC ABG pH (7.35-7.45) POC ABG pO2 (80-105) Potassium (3.6-5.0) mmol/L BUN 40 H (9-20) mg/dL Glucose (75-100) mg/dL POC Glucose 114 H (70-105) Calcium (8.4-10.2) mg/dL 01/26/19 Range/Units 05:43 RBC (3.65-5.03) M/mm3 Hgb (11.8-15.2) gm/dl Hct (35.5-45.6) % MCV (84-94) fl MCH (28-32) pg RDW (13.2-15.2) % Plt Count (140-440) K/mm3 POC ABG pH 7.535 H (7.35-7.45) POC ABG pO2 65 L (80-105) Potassium (3.6-5.0) mmol/L BUN (9-20) mg/dL Glucose (75-100) mg/dL POC Glucose (70-105) Calcium (8.4-10.2) mg/dL
--- NOTE | 2019-01-26 09:57 | Progress Note ---
Assessment and Plan Assessment and plan: 63 y/o male with history of CVA with residual right sided weakness who was brought from home to the ED due to change in mental state. Per report, not verbal at baseline. Per EMS, patient had HR in the 20's and was given atropine. Brought to the ED and was found to be severely hyponatremic as well as h yperkalemic, hypothermic and hypotensive. Subsequently, patient started bleeding from multiple orifices CXR: IMPRESSION: The endotracheal tube lies in appropriate position Extensive airspace disease in right lung and in left perihilar region, new in comparison to prior examination of earlier in the day. Renal US: IMPRESSION: Nonspecific Renal Parenchymal disease.Slightly complex left renal cyst which is grossly unchanged since CT dated 10/30/17. Cultures: Blood culture 01/19/2019 Enterococcus faecalis 2 of 4 bottles and MDR Pseudomonas 1 of 4 bottles Urine culture 01/19/2019 Klebsiella. Sputum culture 01/22/2019: MDR Pseudomonas Blood culture 01/22/2019 : no growth Prior admission: Patient was noted to have myxedema coma at the time. 1) Shock likely mixed cardiogenic due to symptomatic bradycardia +/- ?mixedema coma +/- septic: better. Septic etiology most likely E Severe sepsis with shock -Likely secondary to enterococcus bacteremia +/- Klebsiella UTI +/- pneumonia. CRP 24. Procalcitonin 129.30 -Abx per ID. -Patient on Isolation Bleeding from multiple orifices/Possible DIC- Thrombocytopenia, ANEMIA -Stable and showing some improvement. S/P 1 unit PRBC. -Condition guarded with poor prognosis -Low platelet Acute hypoxic and hypercapnic respiratory failure >96hrs -Status post intubation on mechanical ventilator -Pulmonology following Symptomatic severe sinus bradycardia -Status post multiple doses of atropine -HR improving. epinephrine drip has been discontinued -Cardiology following Severe hyponatremia -Level improving, will monitor ASHOK, probably vasomotor nephropathy -Resolved -Renal ultrasound negative for hydronephrosis -Nephrology following and bumex given intermittent due to anasacar Recurrent Hyperkalemia now Hypokalemia -Discussed with Nephrology, they will replace. -We'll continue treatment and monitor potassium level -Nephrology following Acute on chronic metabolic encephalopathy -Likely due to the acute process -Head CT scan pending Anemia of acute loss -IU PRBC ordered, will monitor H/H DM2 -Blood glucose currently stable Hypothyroidism -TSH level elevated but free T4 normal -On a stress dose IV steroid and IV Synthroid by pulmonology History of CVA with residual right sided weakness and non-verbal -Continue supportive care Chronic sacral decubitus ulcers -Wound care nurse consulted and input noted Chronic dysphagia status post PEG tube placement -Dietitian consulted SEIZURE DISORDER Continue antiepileptic Electrolyte abnormalities: hYPOKALEMIA, HYPOMAGNESEMIA -Replace and monitor. dvt/gi PROPHY scd secondary to thromobocytopenia prognosis Poor Discussed with Nursing staff. CT head ordered and pending May need EEG to ensure no underlying seizure spoke to sister who the patient has lived with for the past 4 years. Hospice being considered but will let us know after family discussion The high probability of a clinically significant, sudden or life threatening deterioration of the [neuro, pulmonary, nephro] system(s) required my full and direct attention, intervention and personal management. The aggregate critical care time was [45] minutes. This time is in addition to time spent performing reported procedures but includes the following: [x] Data Review and interpretation [x] Patient assessment and monitoring of vital signs [x] Documentation [x] Medication orders and management History Interval history: Pateint seen and examined, remains on full ventilatory support, no clinical change, nursing reported some generalized tremor, no clear evidence of seizure. Med recs done Hospitalist Physical - Physical exam Narrative exam: General appearance: Present: mild distress on full MVS - EENT Eyes: Present: PERRL ENT: other (patient is intubated) - Neck Neck: Present: supple - Respiratory Respiratory effort: labored Respiratory: bilateral: rales - Cardiovascular Rhythm: regular) Heart Sounds: Present: S1 & S2 - Extremities Extremity abnormal: pitting edema (in bilateral upper and lower extremities) - Abdominal General gastrointestinal: distended (firm on palpation), normal bowel sounds - Integumentary Integumentary: Present: erythema (sacral decubitus ulcers) - Neurologic Neurologic: other (patient is unresponsive although sluggishly opens eyes on verbal stimuli) - Constitutional Vitals: Temp Pulse Resp BP Pulse Ox 98.1 F 67 4 L 168/88 98 01/26/19 08:00 01/26/19 08:19 01/26/19 08:19 01/26/19 08:19 01/26/19 08:19 General appearance: Present: no acute distress Results - Labs CBC & Chem 7: 01/26/19 04:45 01/26/19 04:45 Labs: Laboratory Last Values WBC 8.1 K/mm3 (4.5-11.0) 01/26/19 04:45 RBC 2.82 M/mm3 (3.65-5.03) L 01/26/19 04:45 Hgb 9.2 gm/dl (11.8-15.2) L 01/26/19 04:45 Hct 27.7 % (35.5-45.6) L 01/26/19 04:45 MCV 98 fl (84-94) H 01/26/19 04:45 MCH 33 pg (28-32) H 01/26/19 04:45 MCHC 33 % (32-34) 01/26/19 04:45 RDW 16.4 % (13.2-15.2) H 01/26/19 04:45 Plt Count 46 K/mm3 (140-440) L 01/26/19 04:45 Lymph % (Auto) Telephone Clerk 01/19/19 07:48 Green % (Auto) Telephone Clerk 01/19/19 07:48 Eos % (Auto) Telephone Clerk 01/19/19 07:48 Baso % (Auto) Telephone Clerk 01/19/19 07:48 Lymph # Telephone Clerk 01/19/19 07:48 Green # Telephone Clerk 01/19/19 07:48 Eos # Telephone Clerk 01/19/19 07:48 Baso # Telephone Clerk 01/19/19 07:48 Add Manual Diff Complete 01/23/19 04:25 Total Counted 100 01/23/19 04:25 Seg Neutrophils % Telephone Clerk 01/23/19 04:25 Seg Neuts % (Manual) 57.0 % (40.0-70.0) 01/23/19 04:25 Band Neutrophils % 37.0 % 01/23/19 04:25 Lymphocytes % (Manual) 1.0 % (13.4-35.0) L 01/23/19 04:25 Reactive Lymphs % (Man) 0 % 01/23/19 04:25 Monocytes % (Manual) 5.0 % (0.0-7.3) 01/23/19 04:25 Eosinophils % (Manual) 0 % (0.0-4.3) 01/23/19 04:25 Basophils % (Manual) 0 % (0.0-1.8) 01/23/19 04:25 Metamyelocytes % 0 % 01/23/19 04:25 Myelocytes % 0 % 01/23/19 04:25 Promyelocytes % 0 % 01/23/19 04:25 Blast Cells % 0 % 01/23/19 04:25 Nucleated RBC % 11.0 % (0.0-0.9) H 01/23/19 04:25 Seg Neutrophils # Telephone Clerk 01/19/19 07:48 Seg Neutrophils # Man 0.0 K/mm3 (1.8-7.7) L 01/23/19 04:25 Band Neutrophils # 0.0 K/mm3 01/23/19 04:25 Lymphocytes # (Manual) 0.0 K/mm3 (1.2-5.4) L 01/23/19 04:25 Abs React Lymphs (Man) 0.0 K/mm3 01/23/19 04:25 Monocytes # (Manual) 0.0 K/mm3 (0.0-0.8) 01/23/19 04:25 Eosinophils # (Manual) 0.0 K/mm3 (0.0-0.4) 01/23/19 04:25 Basophils # (Manual) 0.0 K/mm3 (0.0-0.1) 01/23/19 04:25 Metamyelocytes # 0.0 K/mm3 01/23/19 04:25 Myelocytes # 0.0 K/mm3 01/23/19 04:25 Promyelocytes # 0.0 K/mm3 01/23/19 04:25 Blast Cells # 0.0 K/mm3 01/23/19 04:25 WBC Morphology Not Reportable 01/23/19 04:25 Hypersegmented Neuts Not Reportable 01/23/19 04:25 Hyposegmented Neuts Not Reportable 01/23/19 04:25 Hypogranular Neuts Not Reportable 01/23/19 04:25 Smudge Cells Not Reportable 01/23/19 04:25 Toxic Granulation Not Reportable 01/23/19 04:25 Toxic Vacuolation Not Reportable 01/23/19 04:25 Dohle Bodies Few 01/23/19 04:25 Pelger-Huet Anomaly Not Reportable 01/23/19 04:25 Kaitlyn Rods Not Reportable 01/23/19 04:25 Platelet Estimate Consistent w auto 01/23/19 04:25 Clumped Platelets Not Reportable 01/23/19 04:25 Plt Clumps, EDTA Not Reportable 01/23/19 04:25 Large Platelets Few 01/23/19 04:25 Giant Platelets Not Reportable 01/23/19 04:25 Platelet Satelliting Not Reportable 01/23/19 04:25 Plt Morphology Comment Not Reportable 01/23/19 04:25 RBC Morphology Not Reportable 01/23/19 04:25 Dimorphic RBCs Not Reportable 01/23/19 04:25 Polychromasia Not Reportable 01/23/19 04:25 Hypochromasia Not Reportable 01/23/19 04:25 Poikilocytosis Not Reportable 01/23/19 04:25 Anisocytosis 1+ 01/23/19 04:25 Microcytosis Not Reportable 01/23/19 04:25 Macrocytosis Not Reportable 01/23/19 04:25 Spherocytes Not Reportable 01/23/19 04:25 Pappenheimer Bodies Not Reportable 01/23/19 04:25 Sickle Cells Not Reportable 01/23/19 04:25 Target Cells Few 01/23/19 04:25 Tear Drop Cells Not Reportable 01/23/19 04:25 Ovalocytes Not Reportable 01/23/19 04:25 Helmet Cells Not Reportable 01/23/19 04:25 Lo-Maricao Bodies Not Reportable 01/23/19 04:25 Hackberry Rings Not Reportable 01/23/19 04:25 Gregory Cells Not Reportable 01/23/19 04:25 Bite Cells Not Reportable 01/23/19 04:25 Crenated Cell Not Reportable 01/23/19 04:25 Elliptocytes Not Reportable 01/23/19 04:25 Acanthocytes (Spur) Not Reportable 01/23/19 04:25 Rouleaux Not Reportable 01/23/19 04:25 Hemoglobin C Crystals Not Reportable 01/23/19 04:25 Schistocytes Not Reportable 01/23/19 04:25 Malaria parasites Not Reportable 01/23/19 04:25 Dionisio Bodies Not Reportable 01/23/19 04:25 Hem Pathologist Commnt No 01/23/19 04:25 PT 15.1 Sec. (12.2-14.9) H 01/19/19 Unknown INR 1.12 (0.87-1.13) 01/19/19 Unknown APTT 33.5 Sec. (24.2-36.6) 01/19/19 Unknown POC ABG pH 7.535 (7.35-7.45) H 01/26/19 05:43 POC ABG pCO2 35.2 (35-45) 01/26/19 05:43 POC ABG pO2 65 (80-105) L 01/26/19 05:43 POC ABG HCO3 29.8 (22-26 mml/L) 01/26/19 05:43 POC ABG Total CO2 31 (23-27mmol/L) 01/26/19 05:43 POC ABG O2 Sat 95 01/26/19 05:43 POC ABG Base Excess 7 ((-2) - (+3)mmol/L) 01/26/19 05:43 FiO2 45 % 01/26/19 05:43 Sodium 142 mmol/L (137-145) 01/26/19 04:45 Potassium 4.1 mmol/L (3.6-5.0) D 01/26/19 04:45 Chloride 103.1 mmol/L (98-107) 01/26/19 04:45 Carbon Dioxide 24 mmol/L (22-30) 01/26/19 04:45 Anion Gap 19 mmol/L 01/26/19 04:45 BUN 40 mg/dL (9-20) H 01/26/19 04:45 Creatinine 1.1 mg/dL (0.8-1.5) 01/26/19 04:45 Estimated GFR > 60 ml/min 01/26/19 04:45 BUN/Creatinine Ratio 36 % 01/26/19 04:45 Glucose 88 mg/dL (75-100) 01/26/19 04:45 POC Glucose 102 (70-105) 01/26/19 05:36 Osmolality 268 Mosm/kg 01/20/19 17:52 Lactic Acid 3.20 mmol/L (0.7-2.0) H* 01/19/19 10:24 Uric Acid 5.3 mg/dL (3.5-7.6) 01/20/19 17:52 Calcium 8.5 mg/dL (8.4-10.2) 01/26/19 04:45 Phosphorus 5.90 mg/dL (2.5-4.5) H 01/20/19 Unknown Magnesium 1.80 mg/dL (1.7-2.3) 01/25/19 15:30 Total Bilirubin 0.40 mg/dL (0.1-1.2) 01/21/19 02:45 Direct Bilirubin 0.3 mg/dL (0-0.2) H 01/21/19 02:45 Indirect Bilirubin 0.1 mg/dL 01/21/19 02:45 AST 59 units/L (5-40) H 01/21/19 02:45 ALT 28 units/L (7-56) 01/21/19 02:45 Alkaline Phosphatase 91 units/L (35-129) 01/21/19 02:45 Ammonia 34.0 umol/L (25-60) 01/19/19 07:48 Total Creatine Kinase < 7 units/L (55-170) L 01/19/19 07:46 Troponin T 0.031 ng/mL (0.00-0.029) H D 01/19/19 10:24 C-Reactive Protein 24.80 mg/dL (0.00-1.30) H 01/22/19 11:01 Total Protein 5.7 g/dL (6.3-8.2) L 01/21/19 02:45 Albumin 3.1 g/dL (3.9-5) L 01/21/19 02:45 Albumin/Globulin Ratio 1.2 % 01/21/19 02:45 Triglycerides 78 mg/dL (2-149) 01/19/19 10:24 Cholesterol 130 mg/dL (50-199) 01/19/19 10:24 LDL Cholesterol Direct 71 mg/dL (50-130) 01/19/19 10:24 HDL Cholesterol 53 mg/dL (40-59) 01/19/19 10:24 Cholesterol/HDL Ratio 2.45 % 01/19/19 10:24 TSH 8.530 mlU/mL (0.270-4.200) H 01/19/19 07:46 Free T4 0.92 ng/dL (0.76-1.46) 01/19/19 14:39 Urine Color Yellow (Yellow) 01/19/19 08:30 Urine Turbidity Turbid (Clear) 01/19/19 08:30 Urine pH 5.0 (5.0-7.0) 01/19/19 08:30 Ur Specific Hughes 1.020 (1.003-1.030) 01/19/19 08:30 Urine Protein 100 mg/dl mg/dL (Negative) 01/19/19 08:30 Urine Glucose (UA) Neg mg/dL (Negative) 01/19/19 08:30 Urine Ketones Neg mg/dL (Negative) 01/19/19 08:30 Urine Blood Sm (Negative) 01/19/19 08:30 Urine Nitrite Neg (Negative) 01/19/19 08:30 Urine Bilirubin Sm (Negative) 01/19/19 08:30 Urine Ictotest Negative (Negative) 01/19/19 08:30 Urine Urobilinogen < 2.0 mg/dL (<2.0) 01/19/19 08:30 Ur Leukocyte Esterase Mod (Negative) 01/19/19 08:30 Urine WBC (Auto) > 182.0 /HPF (0.0-6.0) H 01/19/19 08:30 Urine RBC (Auto) 134.0 /HPF (0.0-6.0) 01/19/19 08:30 Urine Bacteria (Auto) 4+ /HPF (Negative) 01/19/19 08:30 Urine WBC Clumps 3+ /HPF 01/19/19 08:30 Ur Transition Epith Cell 6 /HPF 01/19/19 08:30 Amorphous Crystals 2+ 01/19/19 08:30 Urine Osmolality 225 Mosm/kg 01/21/19 02:50 Urine Sodium 64 mmol/L 01/21/19 02:50 Urine Potassium 31.83 mmol/L 01/21/19 02:50 Miscellaneous Test Flexitest 1 H 01/22/19 11:34 Blood Type O POSITIVE 01/21/19 12:09 Antibody Screen Negative 01/21/19 12:09 Crossmatch See Detail 01/21/19 12:09 Active Medications - Current Medications Current Medications: Generic Name Dose Route Start Last Admin Trade Name Freq PRN Reason Stop Dose Admin Acetaminophen 650 mg 01/21/19 02:23 01/21/19 03:59 Tylenol PO 650 mg Q6H PRN Administration Fever > 101 Amlodipine Besylate 10 mg 01/25/19 10:00 01/25/19 09:54 Norvasc PO 10 mg DAILY PRISCA Administration Dextrose 50 ml 01/19/19 16:42 01/21/19 16:53 D50w (25gm) Syringe IV 50 ml PRN PRN Administration Hypoglycemia Famotidine 20 mg 01/20/19 11:00 01/25/19 22:42 Pepcid IV 20 mg BID PRISCA Administration Hydralazine HCl 25 mg 01/24/19 22:00 01/26/19 06:07 Apresoline PO 25 mg Q8HR PRISCA Administration Hydrocortisone Sodium Succinate 150 mg 01/20/19 22:00 01/26/19 06:06 Solu-Cortef IV 150 mg Q8H PRISCA Administration Dopamine HCl/Dextrose 800 mg in 250 mls @ 4.082 mls/hr 01/19/19 20:00 01/22/19 10:45 Intropin Drip 800 Mg/D5w 250 Ml IV 0 mcg/kg/min TITR PRISCA 0 mls/hr Titration Protocol 2 MCG/KG/MIN Epinephrine 8 mg/ Sodium 250 mls @ 3.75 mls/hr 01/20/19 09:00 01/21/19 12:00 Chloride IV 0 mcg/min TITR PRISCA 0 mls/hr Titration Protocol 2 MCG/MIN Metronidazole 500 mg in 100 mls @ 100 mls/hr 01/22/19 10:00 01/26/19 06:06 Flagyl 500 Mg/100 Ml IV 100 mls/hr Q8HR PRISCA Administration Protocol Vancomycin HCl 1,500 mg/ 530 mls @ 333.333 mls/hr 01/23/19 10:00 01/25/19 09:57 Sodium Chloride IV 333.333 mls/hr Q24HR PRISCA Administration Meropenem 1,000 mg/ Sodium 100 mls @ 100 mls/hr 01/24/19 00:00 01/26/19 00:15 Chloride IV 100 mls/hr Q8H PRISCA Administration Protocol Levetiracetam 1,000 mg/ 110 mls @ 400 mls/hr 01/25/19 11:00 01/25/19 22:43 Dextrose IV 400 mls/hr Q12HR PRISCA Administration Insulin Human Isoph/Insulin Regular 15 unit 01/24/19 17:00 01/25/19 09:55 Humulin 70/30 SUB-Q 15 unit BIDDIAB PRISCA Administration Insulin Human Lispro 0 unit 01/19/19 18:00 01/26/19 00:18 Humalog SUB-Q Not Given Q6HR [facility] Protocol Levothyroxine Sodium 200 mcg 01/25/19 06:00 01/26/19 06:07 Synthroid FEEDTUBE 200 mcg DAILY@0600 PRISCA Administration Metoprolol Tartrate 5 mg 01/22/19 14:00 01/26/19 00:17 Lopressor IV Not Given Q6HR [facility] Miscellaneous Medication 15 mcg 01/25/19 10:00 Liothyronine Sodium [Cytomel] NGTUBE QAM PRISCA Oxcarbazepine 900 mg 01/24/19 22:00 01/25/19 22:42 Trileptal PO 900 mg BID PRISCA Administration Valproic Acid 1,000 mg 01/24/19 22:00 01/25/19 22:42 Depakene Liq FEEDTUBE 1,000 mg BID PRISCA Administration Nutrition/Malnutrition Assess - Dietary Evaluation Nutrition/Malnutrition Findings: Nutrition Notes Start: 01/20/19 12:26 Freq: Status: Active Protocol: Document 01/23/19 10:31 EB (Rec: 01/23/19 10:34 EB [id number]) Co-Sign 01/23/19 10:31 LP Nutrition Notes Initial or Follow up Reassessment Current Diagnosis Decubitus(Pressure Ulcer), Diabetes,Sepsis,Hypertension, Stroke,Hyperlipidemia Other Pertinent Diagnosis AMS, Bradycardia Current Diet No diet ordered Labs/Tests Na 136 K 3.1 BUN 3 Pertinent Medications Dopamine gtt, Epinephrine gtt, SoluCortef Height 5 ft 11 in Weight 100.6 kg Mcdaniels Body Weight (kg) 78.18 BMI 30.9 Weight Status Obese Subjective/Other Information Following for pt stability and TF consult once pt is appropriate for feeding. Pt continues instability and is awating MD order for TF. Percent of energy/protein needs met: 0%/0% Burn Absent Trauma Absent Current % PO Negligible #2 Nutrition Diagnosis Malnutrition Diagnosis Progress(for reassessment Continues documentation) #1 Nutrition Diagnosis Inadequate oral intake Diagnosis Progress(for reassessment Continues documentation) Is patient on ventilator? Yes Is Patient Ambulatory and/or Out of Bed No REE-([place]-confined to bed) 2180.784 Kcal/Kg value to use for calculation 17 Approximate Energy Requirements Using 1710 kcal/Kg Calculation Used for Recommendations Kcal/kg Additional Notes Pro needs 2g/kgIBW: 156g/day Fluid needs 1ml/kcal Nutrition Intervention Nutrition Support: Start EN support when medically feasible Goal #1 Start EN support to meet nutrient needs Anticipated Discharge Needs: Continue EN support Follow-Up By: 01/27/19 Additional Comments F/U: TF consult - Attestation Statement I have reviewed and agreed w/ Malnutrition eval & tx plan: Yes
[2019-01-26] MEDS: NORVASC PO SCH (10:00)
[2019-01-26] MEDS: KEPPRA 1,000 MG in D5W 100 ML IV SCH ×2 (10:00→22:25)
[2019-01-26] MEDS: PEPCID IV SCH ×2 (10:00→21:06)
[2019-01-26] MEDS: TRILEPTAL PO SCH ×2 (10:00→21:06)
[2019-01-26] MEDS: VANCOMYCIN 1,500 MG in NACL 0.9% 500 ML 500 ML IV SCH (10:00)
--- NOTE | 2019-01-26 12:08 | Progress Note ---
Assessment and Plan - Patient Problems (1) Bacteremia due to Enterobacter species Current Visit: Yes Status: Acute (2) Bacteremia due to Gram-negative bacteria Current Visit: Yes Status: Acute (3) Altered mental status Current Visit: Yes Status: Acute (4) Chronic ulcer of sacral region Current Visit: Yes Status: Acute (5) History of CVA (cerebrovascular accident) Current Visit: Yes Status: Acute (6) Hyperkalemia Current Visit: Yes Status: Acute (7) Hyponatremia Current Visit: Yes Status: Acute (8) Sepsis Current Visit: Yes Status: Acute (9) Diabetes mellitus Current Visit: Yes Status: Chronic (10) Acute hypoxemic respiratory failure Current Visit: No Status: Acute (11) Chronic respiratory failure Current Visit: No Status: Acute (12) Fever Current Visit: No Status: Acute (13) Right upper lobe pneumonia Current Visit: No Status: Chronic (14) Seizure disorder Current Visit: No Status: Chronic Subjective Principal diagnosis: hypoxic/hypercarbic respiratory failure Interval history: on vent Events noted Objective Vital Signs - 12hr 01/26/19 01/26/19 01/26/19 00:17 00:31 01:00 Temperature Pulse Rate 54 L 66 75 Pulse Rate [ From Monitor] Respiratory 15 13 Rate Blood Pressure 110/69 115/76 125/77 O2 Sat by Pulse 98 98 Oximetry 01/26/19 01/26/19 01/26/19 01:30 02:01 02:31 Temperature Pulse Rate 73 72 52 L Pulse Rate [ From Monitor] Respiratory 20 18 12 Rate Blood Pressure 112/82 127/85 129/74 O2 Sat by Pulse 97 97 96 Oximetry 01/26/19 01/26/19 01/26/19 03:01 03:30 04:00 Temperature 98.9 F Pulse Rate 56 L 62 58 L Pulse Rate [ 62 From Monitor] Respiratory 14 15 21 Rate Blood Pressure 126/75 142/87 140/77 O2 Sat by Pulse 96 97 98 Oximetry 01/26/19 01/26/19 01/26/19 04:01 04:31 05:01 Temperature Pulse Rate 58 L 68 69 Pulse Rate [ From Monitor] Respiratory 10 L 16 15 Rate Blood Pressure 140/77 150/86 151/92 O2 Sat by Pulse 96 95 96 Oximetry 01/26/19 01/26/19 01/26/19 05:31 06:01 06:07 Temperature Pulse Rate 92 H 63 60 Pulse Rate [ From Monitor] Respiratory 14 15 Rate Blood Pressure 163/97 160/88 160/88 O2 Sat by Pulse 95 96 Oximetry 01/26/19 01/26/19 01/26/19 06:30 07:01 08:00 Temperature 98.1 F Pulse Rate 55 L 63 Pulse Rate [ From Monitor] Respiratory 14 16 Rate Blood Pressure 160/88 157/91 O2 Sat by Pulse 97 97 Oximetry 01/26/19 01/26/19 01/26/19 08:19 10:00 10:37 Temperature Pulse Rate 67 67 60 Pulse Rate [ From Monitor] Respiratory 4 L Rate Blood Pressure 168/88 182/107 O2 Sat by Pulse 98 Oximetry Constitutional: no acute distress, comatose, other (critically ill) Eyes: non-icteric ENT: other (on vent intubated AC/ PRVC r 16 fio2 45 p10 Ti 0.8 mv 9.45) Neck: no lymphadenopathy, no JVD, other (right IJ in place) Ascultation: Bilateral: diminished breath sounds, rales (sporadic) Cardiovascular: regular rate and rhythm Gastrointestinal: normoactive bowel sounds, other (distended) Extremities: other (right femoral line) Neurologic: unable to assess CBC and BMP: 01/26/19 04:45 01/26/19 04:45 ABG, PT/INR, D-dimer: ABG POC ABG pH 7.535 (7.35-7.45) H 01/26/19 05:43 POC ABG pCO2 35.2 (35-45) 01/26/19 05:43 POC ABG pO2 65 (80-105) L 01/26/19 05:43 POC ABG HCO3 29.8 (22-26 mml/L) 01/26/19 05:43 POC ABG Total CO2 31 (23-27mmol/L) 01/26/19 05:43 POC ABG O2 Sat 95 01/26/19 05:43 PT/INR, D-dimer PT 15.1 Sec. (12.2-14.9) H 01/19/19 Unknown INR 1.12 (0.87-1.13) 01/19/19 Unknown Abnormal lab findings: Abnormal Labs 01/19/19 01/19/19 01/19/19 07:46 07:46 07:46 WBC RBC Hgb Hct MCV MCH RDW Plt Count Seg Neuts % (Manual) Lymphocytes % (Manual) Monocytes % (Manual) Nucleated RBC % Seg Neutrophils # Man Lymphocytes # (Manual) Monocytes # (Manual) PT INR 0.86 L POC ABG pH POC ABG pCO2 POC ABG pO2 Sodium 114 L* Potassium 6.5 H* Chloride 77.4 L Carbon Dioxide BUN 33 H Creatinine Glucose 128 H POC Glucose Lactic Acid 2.50 H* Calcium Phosphorus Direct Bilirubin AST Total Creatine Kinase < 7 L Troponin T C-Reactive Protein Total Protein Albumin TSH Urine WBC (Auto) Miscellaneous Test Crossmatch 01/19/19 01/19/19 01/19/19 07:46 07:48 08:30 WBC 4.2 L RBC 3.07 L Hgb 10.1 L Hct 30.7 L MCV 100 H MCH 33 H RDW 17.4 H Plt Count Seg Neuts % (Manual) 72.0 H Lymphocytes % (Manual) 11.0 L Monocytes % (Manual) 13.0 H Nucleated RBC % 1.0 H Seg Neutrophils # Man Lymphocytes # (Manual) 0.5 L Monocytes # (Manual) PT INR POC ABG pH POC ABG pCO2 POC ABG pO2 Sodium Potassium Chloride Carbon Dioxide BUN Creatinine Glucose POC Glucose Lactic Acid Calcium Phosphorus Direct Bilirubin AST Total Creatine Kinase Troponin T C-Reactive Protein Total Protein Albumin TSH 8.530 H Urine WBC (Auto) > 182.0 H Miscellaneous Test Crossmatch 01/19/19 01/19/19 01/19/19 10:24 10:24 10:24 WBC RBC Hgb Hct MCV MCH RDW Plt Count Seg Neuts % (Manual) Lymphocytes % (Manual) Monocytes % (Manual) Nucleated RBC % Seg Neutrophils # Man Lymphocytes # (Manual) Monocytes # (Manual) PT INR POC ABG pH 7.305 L POC ABG pCO2 46.8 H POC ABG pO2 Sodium Potassium Chloride Carbon Dioxide BUN Creatinine Glucose POC Glucose Lactic Acid 3.20 H* Calcium Phosphorus Direct Bilirubin AST Total Creatine Kinase Troponin T 0.031 H D C-Reactive Protein Total Protein Albumin TSH Urine WBC (Auto) Miscellaneous Test Crossmatch 01/19/19 01/19/19 01/19/19 14:39 15:04 17:00 WBC RBC Hgb Hct MCV MCH RDW Plt Count Seg Neuts % (Manual) Lymphocytes % (Manual) Monocytes % (Manual) Nucleated RBC % Seg Neutrophils # Man Lymphocytes # (Manual) Monocytes # (Manual) PT INR POC ABG pH 7.320 L POC ABG pCO2 POC ABG pO2 58 L Sodium 116 L* 123 L D Potassium 5.7 H Chloride 82.9 L 89.8 L Carbon Dioxide 17 L BUN 31 H 28 H Creatinine Glucose 129 H 135 H POC Glucose Lactic Acid Calcium 8.1 L Phosphorus 4.80 H Direct Bilirubin AST Total Creatine Kinase Troponin T C-Reactive Protein Total Protein Albumin TSH Urine WBC (Auto) Miscellaneous Test Crossmatch 01/19/19 01/19/19 01/19/19 17:00 22:40 Unknown WBC RBC 3.05 L Hgb 10.0 L Hct 30.7 L MCV 101 H MCH 33 H RDW 16.7 H Plt Count Seg Neuts % (Manual) Lymphocytes % (Manual) Monocytes % (Manual) Nucleated RBC % Seg Neutrophils # Man Lymphocytes # (Manual) Monocytes # (Manual) PT 15.1 H INR POC ABG pH POC ABG pCO2 POC ABG pO2 Sodium 121 L Potassium 5.2 H Chloride 86.9 L Carbon Dioxide BUN 30 H Creatinine Glucose POC Glucose Lactic Acid Calcium Phosphorus 5.20 H Direct Bilirubin AST Total Creatine Kinase Troponin T C-Reactive Protein Total Protein Albumin TSH Urine WBC (Auto) Miscellaneous Test Crossmatch 01/20/19 01/20/19 01/20/19 04:20 16:00 17:39 WBC RBC Hgb Hct MCV MCH RDW Plt Count Seg Neuts % (Manual) Lymphocytes % (Manual) Monocytes % (Manual) Nucleated RBC % Seg Neutrophils # Man Lymphocytes # (Manual) Monocytes # (Manual) PT INR POC ABG pH POC ABG pCO2 POC ABG pO2 Sodium 120 L 119 L* Potassium 5.9 H 7.0 H* Chloride 87.0 L 85.7 L Carbon Dioxide 20 L 18 L BUN 31 H 35 H Creatinine 1.9 H Glucose 120 H POC Glucose 40 L Lactic Acid Calcium 8.1 L 8.0 L Phosphorus 5.10 H 5.80 H Direct Bilirubin AST Total Creatine Kinase Troponin T C-Reactive Protein Total Protein Albumin TSH Urine WBC (Auto) Miscellaneous Test Crossmatch 01/20/19 01/20/19 01/21/19 22:33 Unknown 00:18 WBC RBC Hgb Hct MCV MCH RDW Plt Count Seg Neuts % (Manual) Lymphocytes % (Manual) Monocytes % (Manual) Nucleated RBC % Seg Neutrophils # Man Lymphocytes # (Manual) Monocytes # (Manual) PT INR POC ABG pH POC ABG pCO2 POC ABG pO2 Sodium 125 L D 120 L Potassium 6.2 H* 6.2 H* Chloride 87.3 L 85.8 L Carbon Dioxide 17 L BUN 37 H 33 H Creatinine 1.9 H 1.6 H Glucose 71 L POC Glucose 152 H Lactic Acid Calcium 8.1 L Phosphorus 5.90 H Direct Bilirubin AST Total Creatine Kinase Troponin T C-Reactive Protein Total Protein Albumin TSH Urine WBC (Auto) Miscellaneous Test Crossmatch 01/21/19 01/21/19 01/21/19 02:45 02:45 02:45 WBC 18.8 H RBC 2.36 L Hgb 7.6 L Hct 25.1 L MCV 99 H MCH RDW 16.4 H Plt Count 97 L Seg Neuts % (Manual) 29.0 L Lymphocytes % (Manual) 4.0 L Monocytes % (Manual) Nucleated RBC % 5.0 H Seg Neutrophils # Man Lymphocytes # (Manual) 0.8 L Monocytes # (Manual) PT INR POC ABG pH POC ABG pCO2 POC ABG pO2 Sodium 125 L Potassium 5.8 H Chloride 86.9 L Carbon Dioxide BUN 35 H Creatinine 1.9 H Glucose 119 H POC Glucose Lactic Acid Calcium Phosphorus Direct Bilirubin 0.3 H AST 59 H Total Creatine Kinase Troponin T C-Reactive Protein Total Protein 5.7 L Albumin 3.1 L TSH Urine WBC (Auto) Miscellaneous Test Crossmatch 01/21/19 01/21/19 01/21/19 05:26 05:42 06:41 WBC RBC Hgb Hct MCV MCH RDW Plt Count Seg Neuts % (Manual) Lymphocytes % (Manual) Monocytes % (Manual) Nucleated RBC % Seg Neutrophils # Man Lymphocytes # (Manual) Monocytes # (Manual) PT INR POC ABG pH 7.274 L POC ABG pCO2 58.6 H POC ABG pO2 77 L Sodium Potassium Chloride Carbon Dioxide BUN Creatinine Glucose POC Glucose 182 H Lactic Acid Calcium Phosphorus Direct Bilirubin AST Total Creatine Kinase Troponin T C-Reactive Protein Total Protein Albumin TSH Urine WBC (Auto) Miscellaneous Test Crossmatch 01/21/19 01/21/19 01/21/19 12:09 12:41 17:44 WBC RBC Hgb Hct MCV MCH RDW Plt Count Seg Neuts % (Manual) Lymphocytes % (Manual) Monocytes % (Manual) Nucleated RBC % Seg Neutrophils # Man Lymphocytes # (Manual) Monocytes # (Manual) PT INR POC ABG pH POC ABG pCO2 POC ABG pO2 Sodium Potassium Chloride Carbon Dioxide BUN Creatinine Glucose POC Glucose 129 H 174 H Lactic Acid Calcium Phosphorus Direct Bilirubin AST Total Creatine Kinase Troponin T C-Reactive Protein Total Protein Albumin TSH Urine WBC (Auto) Miscellaneous Test Crossmatch See Detail 01/21/19 01/21/19 01/22/19 20:00 23:47 04:17 WBC 34.5 H RBC 2.34 L Hgb 7.5 L Hct 22.7 L MCV 97 H MCH RDW 16.0 H Plt Count 36 L Seg Neuts % (Manual) 77.0 H Lymphocytes % (Manual) 1.0 L Monocytes % (Manual) Nucleated RBC % 1.0 H Seg Neutrophils # Man 26.6 H Lymphocytes # (Manual) 0.3 L Monocytes # (Manual) 1.4 H PT INR POC ABG pH POC ABG pCO2 POC ABG pO2 Sodium 131 L Potassium 3.5 L D Chloride 88.6 L Carbon Dioxide BUN 32 H Creatinine Glucose 117 H POC Glucose 110 H Lactic Acid Calcium Phosphorus Direct Bilirubin AST Total Creatine Kinase Troponin T C-Reactive Protein Total Protein Albumin TSH Urine WBC (Auto) Miscellaneous Test Crossmatch 01/22/19 01/22/19 01/22/19 04:17 04:45 05:16 WBC RBC Hgb Hct MCV MCH RDW Plt Count Seg Neuts % (Manual) Lymphocytes % (Manual) Monocytes % (Manual) Nucleated RBC % Seg Neutrophils # Man Lymphocytes # (Manual) Monocytes # (Manual) PT INR POC ABG pH 7.492 H POC ABG pCO2 POC ABG pO2 64 L Sodium 131 L Potassium 2.9 L* Chloride 89.8 L Carbon Dioxide BUN 30 H Creatinine Glucose POC Glucose 116 H Lactic Acid Calcium Phosphorus Direct Bilirubin AST Total Creatine Kinase Troponin T C-Reactive Protein Total Protein Albumin TSH Urine WBC (Auto) Miscellaneous Test Crossmatch 01/22/19 01/22/19 01/22/19 11:01 11:34 12:01 WBC RBC Hgb Hct MCV MCH RDW Plt Count Seg Neuts % (Manual) Lymphocytes % (Manual) Monocytes % (Manual) Nucleated RBC % Seg Neutrophils # Man Lymphocytes # (Manual) Monocytes # (Manual) PT INR POC ABG pH POC ABG pCO2 POC ABG pO2 Sodium Potassium Chloride Carbon Dioxide BUN Creatinine Glucose POC Glucose 119 H Lactic Acid Calcium Phosphorus Direct Bilirubin AST Total Creatine Kinase Troponin T C-Reactive Protein 24.80 H Total Protein Albumin TSH Urine WBC (Auto) Miscellaneous Test Flexitest 1 H Crossmatch 01/22/19 01/22/19 01/23/19 16:50 23:38 04:25 WBC 26.4 H RBC 2.44 L Hgb 7.8 L Hct 23.7 L MCV 97 H MCH RDW 16.2 H Plt Count 22 L Seg Neuts % (Manual) Lymphocytes % (Manual) 1.0 L Monocytes % (Manual) Nucleated RBC % 11.0 H Seg Neutrophils # Man 0.0 L Lymphocytes # (Manual) 0.0 L Monocytes # (Manual) PT INR POC ABG pH POC ABG pCO2 POC ABG pO2 Sodium 132 L Potassium 2.8 L* Chloride 92.4 L Carbon Dioxide BUN 29 H Creatinine Glucose POC Glucose 111 H Lactic Acid Calcium Phosphorus Direct Bilirubin AST Total Creatine Kinase Troponin T C-Reactive Protein Total Protein Albumin TSH Urine WBC (Auto) Miscellaneous Test Crossmatch 01/23/19 01/23/19 01/23/19 04:55 05:42 08:39 WBC RBC Hgb Hct MCV MCH RDW Plt Count Seg Neuts % (Manual) Lymphocytes % (Manual) Monocytes % (Manual) Nucleated RBC % Seg Neutrophils # Man Lymphocytes # (Manual) Monocytes # (Manual) PT INR POC ABG pH 7.488 H POC ABG pCO2 POC ABG pO2 55 L Sodium 136 L Potassium 3.1 L Chloride 94.5 L Carbon Dioxide BUN 36 H Creatinine Glucose POC Glucose 107 H Lactic Acid Calcium Phosphorus Direct Bilirubin AST Total Creatine Kinase Troponin T C-Reactive Protein Total Protein Albumin TSH Urine WBC (Auto) Miscellaneous Test Crossmatch 01/23/19 01/23/19 01/23/19 12:08 16:54 18:06 WBC RBC Hgb Hct MCV MCH RDW Plt Count Seg Neuts % (Manual) Lymphocytes % (Manual) Monocytes % (Manual) Nucleated RBC % Seg Neutrophils # Man Lymphocytes # (Manual) Monocytes # (Manual) PT INR POC ABG pH POC ABG pCO2 POC ABG pO2 Sodium Potassium 3.2 L Chloride 96.9 L Carbon Dioxide BUN 39 H Creatinine Glucose 109 H POC Glucose 108 H 115 H Lactic Acid Calcium Phosphorus Direct Bilirubin AST Total Creatine Kinase Troponin T C-Reactive Protein Total Protein Albumin TSH Urine WBC (Auto) Miscellaneous Test Crossmatch 01/24/19 01/24/19 01/24/19 00:44 03:47 05:38 WBC RBC Hgb Hct MCV MCH RDW Plt Count Seg Neuts % (Manual) Lymphocytes % (Manual) Monocytes % (Manual) Nucleated RBC % Seg Neutrophils # Man Lymphocytes # (Manual) Monocytes # (Manual) PT INR POC ABG pH 7.504 H POC ABG pCO2 34.9 L POC ABG pO2 62 L Sodium Potassium Chloride Carbon Dioxide BUN Creatinine Glucose POC Glucose 137 H 120 H Lactic Acid Calcium Phosphorus Direct Bilirubin AST Total Creatine Kinase Troponin T C-Reactive Protein Total Protein Albumin TSH Urine WBC (Auto) Miscellaneous Test Crossmatch 01/24/19 01/24/19 01/24/19 07:48 11:43 17:49 WBC RBC Hgb Hct MCV MCH RDW Plt Count Seg Neuts % (Manual) Lymphocytes % (Manual) Monocytes % (Manual) Nucleated RBC % Seg Neutrophils # Man Lymphocytes # (Manual) Monocytes # (Manual) PT INR POC ABG pH POC ABG pCO2 POC ABG pO2 Sodium Potassium Chloride Carbon Dioxide BUN Creatinine Glucose POC Glucose 112 H 126 H 149 H Lactic Acid Calcium Phosphorus Direct Bilirubin AST Total Creatine Kinase Troponin T C-Reactive Protein Total Protein Albumin TSH Urine WBC (Auto) Miscellaneous Test Crossmatch 01/24/19 01/25/19 01/25/19 23:35 03:52 05:15 WBC RBC Hgb Hct MCV MCH RDW Plt Count Seg Neuts % (Manual) Lymphocytes % (Manual) Monocytes % (Manual) Nucleated RBC % Seg Neutrophils # Man Lymphocytes # (Manual) Monocytes # (Manual) PT INR POC ABG pH 7.479 H POC ABG pCO2 POC ABG pO2 Sodium Potassium Chloride Carbon Dioxide BUN Creatinine Glucose POC Glucose 128 H 126 H Lactic Acid Calcium Phosphorus Direct Bilirubin AST Total Creatine Kinase Troponin T C-Reactive Protein Total Protein Albumin TSH Urine WBC (Auto) Miscellaneous Test Crossmatch 01/25/19 01/25/19 01/25/19 09:50 14:17 15:30 WBC RBC Hgb Hct MCV MCH RDW Plt Count Seg Neuts % (Manual) Lymphocytes % (Manual) Monocytes % (Manual) Nucleated RBC % Seg Neutrophils # Man Lymphocytes # (Manual) Monocytes # (Manual) PT INR POC ABG pH POC ABG pCO2 POC ABG pO2 Sodium Potassium 3.2 L Chloride Carbon Dioxide BUN 41 H Creatinine Glucose 123 H POC Glucose 151 H 132 H Lactic Acid Calcium 8.2 L Phosphorus Direct Bilirubin AST Total Creatine Kinase Troponin T C-Reactive Protein Total Protein Albumin TSH Urine WBC (Auto) Miscellaneous Test Crossmatch 01/25/19 01/26/19 01/26/19 17:40 04:45 04:45 WBC RBC 2.82 L Hgb 9.2 L Hct 27.7 L MCV 98 H MCH 33 H RDW 16.4 H Plt Count 46 L Seg Neuts % (Manual) Lymphocytes % (Manual) Monocytes % (Manual) Nucleated RBC % Seg Neutrophils # Man Lymphocytes # (Manual) Monocytes # (Manual) PT INR POC ABG pH POC ABG pCO2 POC ABG pO2 Sodium Potassium Chloride Carbon Dioxide BUN 40 H Creatinine Glucose POC Glucose 114 H Lactic Acid Calcium Phosphorus Direct Bilirubin AST Total Creatine Kinase Troponin T C-Reactive Protein Total Protein Albumin TSH Urine WBC (Auto) Miscellaneous Test Crossmatch 01/26/19 05:43 WBC RBC Hgb Hct MCV MCH RDW Plt Count Seg Neuts % (Manual) Lymphocytes % (Manual) Monocytes % (Manual) Nucleated RBC % Seg Neutrophils # Man Lymphocytes # (Manual) Monocytes # (Manual) PT INR POC ABG pH 7.535 H POC ABG pCO2 POC ABG pO2 65 L Sodium Potassium Chloride Carbon Dioxide BUN Creatinine Glucose POC Glucose Lactic Acid Calcium Phosphorus Direct Bilirubin AST Total Creatine Kinase Troponin T C-Reactive Protein Total Protein Albumin TSH Urine WBC (Auto) Miscellaneous Test Crossmatch
--- NOTE | 2019-01-26 14:12 | Progress Note ---
Assessment and Plan - Patient Problems (1) Acute kidney injury Current Visit: Yes Status: Acute Plan to address problem: Acute kidney injury resolving Creatinine is improving However has anasarca with fluids. Intravenous fluids have been discontinued We will give additional dose of Bumex Strict inputs and output avoid nephro toxic medications Renal dosing for all medications (2) Sepsis Current Visit: Yes Status: Acute Plan to address problem: Sepsis Continue broad-spectrum antibiotics Blood cultures with enterococcus (3) Acute hypoxemic respiratory failure Current Visit: No Status: Acute Plan to address problem: Acute hypoxemic respiratory failure Currently intubated Discontinue intravenous fluids We'll continue intermittent diuretics for now given anasarca Strict input and output (4) HTN (hypertension) Current Visit: Yes Status: Acute Qualifiers: Hypertension type: essential hypertension Qualified Code(s): I10 - Ess ential (primary) hypertension Plan to address problem: Hypertension uncontrolled we'll increase hydralazine to 50 mg every 8 hours Continue amlodipine as well Diuresis intermittently Subjective Principal diagnosis: hypoxic/hypercarbic respiratory failure Interval history: 63 year gentleman with sepsis and renal failure acute hypoxemic respiratory failure on broad-spectrum antibiotics patient was seen today remains intubated has generalized edema Good urine output FiO2's declining Patient is nonverbal with altered mental status review of systems not obtainable Objective - Vital Signs Vital signs: Vital Signs - 12hr 01/26/19 01/26/19 01/26/19 02:31 03:01 03:30 Temperature Pulse Rate 52 L 56 L 62 Pulse Rate [ From Monitor] Respiratory 12 14 15 Rate Blood Pressure 129/74 126/75 142/87 O2 Sat by Pulse 96 96 97 Oximetry 01/26/19 01/26/19 01/26/19 04:00 04:01 04:31 Temperature 98.9 F Pulse Rate 58 L 58 L 68 Pulse Rate [ 62 From Monitor] Respiratory 21 10 L 16 Rate Blood Pressure 140/77 140/77 150/86 O2 Sat by Pulse 98 96 95 Oximetry 01/26/19 01/26/19 01/26/19 05:01 05:31 06:01 Temperature Pulse Rate 69 92 H 63 Pulse Rate [ From Monitor] Respiratory 15 14 15 Rate Blood Pressure 151/92 163/97 160/88 O2 Sat by Pulse 96 95 96 Oximetry 01/26/19 01/26/19 01/26/19 06:07 06:30 07:01 Temperature Pulse Rate 60 55 L 63 Pulse Rate [ From Monitor] Respiratory 14 16 Rate Blood Pressure 160/88 160/88 157/91 O2 Sat by Pulse 97 97 Oximetry 01/26/19 01/26/19 01/26/19 08:00 08:19 10:00 Temperature 98.1 F Pulse Rate 67 67 Pulse Rate [ From Monitor] Respiratory 4 L Rate Blood Pressure 168/88 182/107 O2 Sat by Pulse 98 Oximetry 01/26/19 01/26/19 01/26/19 10:37 12:00 12:40 Temperature 98.9 F Pulse Rate 60 62 70 Pulse Rate [ From Monitor] Respiratory Rate Blood Pressure 181/98 181/98 O2 Sat by Pulse 100 Oximetry - General Appearance General appearance: well-developed, well-nourished EENT: ATNC, PERRL Neck: no JVD Respiratory: Present: Decreased Breath Sounds Cardiology: regular, S1S2, other (generalized anasarca) Gastrointestinal: normal, normoactive bowel sounds Integumentary: no rash Neurologic: confused, disoriented Musculoskeletal: joint swelling Psychiatric: mood/affect appropriate - Lab 01/26/19 04:45 01/26/19 04:45 Most recent lab results Calcium 8.5 mg/dL (8.4-10.2) 01/26/19 04:45 Phosphorus 5.90 mg/dL (2.5-4.5) H 01/20/19 Unknown Magnesium 1.80 mg/dL (1.7-2.3) 01/25/19 15:30 Urine Sodium 64 mmol/L 01/21/19 02:50 - Imaging Chest x-ray: image reviewed (I reviewed chest x-ray with bibasilar opacities) Medications & Allergies - Medications Allergies/Adverse Reactions: Allergies No Known Allergies Allergy (Verified 01/19/19 08:23) Home Medications: Home Medications Medication Instructions Recorded Confirmed Last Taken Type Baclofen [Lioresal] 20 mg PO TID 10/18/17 01/24/19 Unknown History Levothyroxine (Nf) [Synthroid (Nf)] 200 mcg NGTUBE QAM 10/18/17 01/24/19 Unknown History Liothyronine Sodium [Cytomel] 15 mcg NGTUBE QAM 10/18/17 01/24/19 10/30/17 History OXcarbazepine [Trileptal] 900 mg NGTUBE BID 10/18/17 01/24/19 Unknown History Valproic Acid (As Sodium Salt) 20 ml NGTUBE Q12H 10/18/17 01/24/19 Unknown History [Depakene] amLODIPine [Norvasc] 10 mg NGTUBE DAILY 10/18/17 01/24/19 Unknown History levETIRAcetam [Keppra TAB] 1,000 mg NGTUBE BID 10/18/17 01/24/19 Unknown History Insulin Aspart [NovoLOG Flexpen] See Protocol SQ Q6H 30 Days 10/26/17 01/24/19 Unknown Rx insuln.pen hydrALAZINE [Apresoline TAB] 25 mg PO Q8HR #90 tablet 10/26/17 01/24/19 Unknown Rx Polyethylene Glycol 3350 [Miralax 17 gm PO BID #30 packet 11/10/17 01/24/19 Unk nown Rx 3350] Insulin NPH/Regular [NovoLIN 70/30] 15 unit SQ BIDDIAB 01/24/19 01/24/19 Unknown History Active Medications: Generic Name Dose Route Start Last Admin Trade Name Freq PRN Reason Stop Dose Admin Acetaminophen 650 mg 01/21/19 02:23 01/21/19 03:59 Tylenol PO 650 mg Q6H PRN Administration Fever > 101 Amlodipine Besylate 10 mg 01/25/19 10:00 01/26/19 10:00 Norvasc PO 10 mg DAILY PRISCA Administration Dextrose 50 ml 01/19/19 16:42 01/21/19 16:53 D50w (25gm) Syringe IV 50 ml PRN PRN Administration Hypoglycemia Famotidine 20 mg 01/20/19 11:00 01/26/19 10:00 Pepcid IV 20 mg BID PRISCA Administration Hydralazine HCl 25 mg 01/24/19 22:00 01/26/19 06:07 Apresoline PO 25 mg Q8HR PRISCA Administration Hydrocortisone Sodium Succinate 150 mg 01/20/19 22:00 01/26/19 13:19 Solu-Cortef IV 150 mg Q8H PRISCA Administration Dopamine HCl/Dextrose 800 mg in 250 mls @ 4.082 mls/hr 01/19/19 20:00 01/22/19 10:45 Intropin Drip 800 Mg/D5w 250 Ml IV 0 mcg/kg/min TITR PRISCA 0 mls/hr Titration Protocol 2 MCG/KG/MIN Epinephrine 8 mg/ Sodium 250 mls @ 3.75 mls/hr 01/20/19 09:00 01/21/19 12:00 Chloride IV 0 mcg/min TITR PRISCA 0 mls/hr Titration Protocol 2 MCG/MIN Metronidazole 500 mg in 100 mls @ 100 mls/hr 01/22/19 10:00 01/26/19 13:20 Flagyl 500 Mg/100 Ml IV 100 mls/hr Q8HR PRISCA Administration Protocol Vancomycin HCl 1,500 mg/ 530 mls @ 333.333 mls/hr 01/23/19 10:00 01/26/19 11:36 Sodium Chloride IV Infused Q24HR PRISCA Infusion Meropenem 1,000 mg/ Sodium 100 mls @ 100 mls/hr 01/24/19 00:00 01/26/19 09:00 Chloride IV Infused Q8H PRISCA Infusion Protocol Levetiracetam 1,000 mg/ 110 mls @ 400 mls/hr 01/25/19 11:00 01/26/19 10:16 Dextrose IV Infused Q12HR PRICSA Infusion Insulin Human Isoph/Insulin Regular 15 unit 01/24/19 17:00 01/26/19 08:00 Humulin 70/30 SUB-Q 15 unit BIDDIAB PRISCA Administration Insulin Human Lispro 0 unit 01/19/19 18:00 01/26/19 12:00 Humalog SUB-Q 2 unit Q6HR PRISCA Administration Protocol Levothyroxine Sodium 200 mcg 01/25/19 06:00 01/26/19 06:07 Synthroid FEEDTUBE 200 mcg DAILY@0600 PRISCA Administration Metoprolol Tartrate 5 mg 01/22/19 14:00 01/26/19 12:00 Lopressor IV 5 mg Q6HR PRISCA Administration Miscellaneous Medication 15 mcg 01/25/19 10:00 Liothyronine Sodium [Cytomel] NGTUBE QAM PRISCA Oxcarbazepine 900 mg 01/24/19 22:00 01/26/19 10:00 Trileptal PO 900 mg BID PRISCA Administration Valproic Acid 1,000 mg 01/24/19 22:00 01/25/19 22:42 Depakene Liq FEEDTUBE 1,000 mg BID PRISCA Administration
[2019-01-26] MEDS ORDERED: BUMEX IV ONE (14:30)
[2019-01-26] MEDS: DepaKENE Liq FEEDTUBE SCH ×2 (16:15→21:06)
[2019-01-27] MEDS: LOPRESSOR IV SCH ×4 (01:03→17:58)
[2019-01-27] MEDS: HumaLOG SUB-Q SCH ×4 (01:06→18:05)
--- NOTE | 2019-01-27 02:40 | Cat Scan Report ---
PROCEDURE: CT HEAD/BRAIN WO CON TECHNIQUE: Axial images of the head obtained without intravenous contrast. HISTORY: unresponsive COMPARISONS: November 03, 2017 FINDINGS: There is prominent age-related loss of brain volume. Extensive periventricular hypodensity consistent with prominent ischemic changes related to small ves jacoby disease, also present on the prior examination. Hypodensity and volume loss in the right frontal lobe, unchanged and likely sequela from chronic infa rction. No acute intracranial hemorrhage or hematoma. No edema or sulcal effacement. No mass or mass effect. Ventriculomegaly, likely related to the prominent central cortical atrophy. Normal pressure hydroceph alus cannot be excluded. Clinical correlation. Prominent atherosclerotic calcifications. Opacification of the right mastoid air cells and middle ear, consistent with sequela from otomastoidi tis, not present on the prior examination.. Paranasal sinus mucosal thickening, likely chronic. IMPRESSION: Prominent age-related loss of brain volume and extensive periventricular ischemic changes related to small vessel disease. Hypodensity and volume loss in the right frontal lobe unchanged and likely sequela from chronic infar ction. Ventriculomegaly which may be secondary to the prominent central cortical atrophy. Normal pressure hy drocephalus cannot be excluded. Clinical correlation. Opacification of the right mastoid air cells and middle ear, consistent with sequela from otomastoidi tis not present on the prior examination.. This document is electronically signed by Ameya Houston MD., Jan 27 2019 02:37:54 AM ET
[2019-01-27] MEDS ORDERED: ATROPINE IV ONE (02:57)
[2019-01-27] MEDS: SYNTHROID FEEDTUBE SCH (05:37)
[2019-01-27 05:43] LABS: Hematocrit 30.7 % (35.5-45.6); Hemoglobin 10.3 gm/dl (11.8-15.2); Mean Corpuscular HGB Conc 33 % (32-34); Mean Corpuscular Volume 99 fl (84-94); Red Cell Distribution Width 16.4 % (13.2-15.2)
[2019-01-27 05:46] LABS: Platelet Count 57 K/mm3 (140-440)
[2019-01-27] MEDS: APRESOLINE PO SCH ×3 (05:53→22:54)
[2019-01-27 06:09] LABS: BUN/Creatinine Ratio 33; Blood Urea Nitrogen 33 mg/dL (9-20); Calcium 8.5 mg/dL (8.4-10.2); Hemolysis Index 8
[2019-01-27] MEDS: MERREM 1,000 MG in NACL 0.9% 100 ML IV SCH ×2 (08:34→15:20)
--- NOTE | 2019-01-27 09:28 | Progress Note ---
Assessment and Plan Impression * Acute kidney injury * Respiratory failure * Anasarca * Sepsis * Complex renal cyst * History of myxedema coma Recommendations * Patient's renal function has improved significantly. * He is still however quite edematous. Continue diuretics as needed * Replace potassium * Serum sodium is also high normal. He will need free water intake * For his complex renal cyst he will need periodic follow-up. He had a CT scan done in October 2017. * Give additional Bumex today Subjective Date of service: 01/27/19 Principal diagnosis: hypoxic/hypercarbic respiratory failure Interval history: Patient remains on the ventilator. Currently on 45% oxygen. Unresponsive. Objective - Vital Signs Vital signs: Vital Signs - 12hr 01/26/19 01/26/19 01/26/19 22:07 22:31 23:01 Temperature Pulse Rate 80 66 62 Pulse Rate [ From Monitor] Respiratory 17 16 16 Rate Blood Pressure 160/88 149/89 137/78 O2 Sat by Pulse 99 97 96 Oximetry 01/26/19 01/26/19 01/27/19 23:31 23:51 00:00 Temperature 98.3 F Pulse Rate 53 L 60 54 L Pulse Rate [ 54 L From Monitor] Respiratory 16 17 Rate Blood Pressure 117/62 117/62 O2 Sat by Pulse 95 98 100 Oximetry 01/27/19 01/27/19 01/27/19 00:01 00:31 01:00 Temperature Pulse Rate 58 L 67 57 L Pulse Rate [ From Monitor] Respiratory 11 L 16 11 L Rate Blood Pressure 155/93 155/93 128/75 O2 Sat by Pulse 98 99 Oximetry 01/27/19 01/27/19 01/27/19 01:03 01:31 02:01 Temperature Pulse Rate 56 L 62 47 L Pulse Rate [ From Monitor] Respiratory 16 16 Rate Blood Pressure 128/75 149/85 120/64 O2 Sat by Pulse 99 95 Oximetry 01/27/19 01/27/19 01/27/19 02:31 03:01 03:22 Temperature Pulse Rate 44 L 49 L 50 L Pulse Rate [ From Monitor] Respiratory 16 15 Rate Blood Pressure 116/74 138/91 138/91 O2 Sat by Pulse 99 100 100 Oximetry 01/27/19 01/27/19 01/27/19 03:30 04:00 04:01 Temperature 98.0 F Pulse Rate 75 48 L Pulse Rate [ 55 L From Monitor] Respiratory 16 16 16 Rate Blood Pressure 144/95 126/68 O2 Sat by Pulse 99 100 97 Oximetry 01/27/19 01/27/19 01/27/19 04:31 05:01 05:31 Temperature Pulse Rate 65 62 54 L Pulse Rate [ From Monitor] Respiratory 12 16 16 Rate Blood Pressure 144/91 154/79 140/81 O2 Sat by Pulse 98 100 99 Oximetry 01/27/19 01/27/19 01/27/19 05:38 05:53 06:01 Temperature Pulse Rate 56 L 56 L 75 Pulse Rate [ From Monitor] Respiratory 15 Rate Blood Pressure 144/70 144/70 148/93 O2 Sat by Pulse 100 Oximetry 01/27/19 01/27/19 01/27/19 06:30 07:01 08:00 Temperature 97.3 F L Pulse Rate 76 64 Pulse Rate [ From Monitor] Respiratory 15 16 Rate Blood Pressure 155/92 167/89 O2 Sat by Pulse 99 100 Oximetry 01/27/19 08:52 Temperature Pulse Rate 65 Pulse Rate [ From Monitor] Respiratory Rate Blood Pressure 164/78 O2 Sat by Pulse 100 Oximetry - General Appearance General appearance: well-developed, well-nourished, appears stated age, intubated EENT: PERRL, mucous membranes moist Neck: no JVD, no thyromegaly, no carotid bruit, supple Respiratory: Present: [facility] Cardiology: regular, normal heart rate, S1S2, no murmurs Gastrointestinal: normal, normoactive bowel sounds, other (PEG tube in place. Patient has indwelling Barnes catheter) Integumentary: other (2+ pitting edema.) - Lab 01/27/19 04:38 01/27/19 04:38 Most recent lab results Calcium 8.5 mg/dL (8.4-10.2) 01/27/19 04:38 Phosphorus 5.90 mg/dL (2.5-4.5) H 01/20/19 Unknown Magnesium 1.80 mg/dL (1.7-2.3) 01/25/19 15:30 Urine Sodium 64 mmol/L 01/21/19 02:50 Medications & Allergies - Medications Allergies/Adverse Reactions: Allergies No Known Allergies Allergy (Verified 01/19/19 08:23) Home Medications: Home Medications Medication Instructions Recorded Confirmed Last Taken Type Baclofen [Lioresal] 20 mg PO TID 10/18/17 01/24/19 Unknown History Levothyroxine (Nf) [Synthroid (Nf)] 200 mcg NGTUBE QAM 10/18/17 01/24/19 Unknown History Liothyronine Sodium [Cytomel] 15 mcg NGTUBE QAM 10/18/17 01/24/19 10/30/17 History OXcarbazepine [Trileptal] 900 mg NGTUBE BID 10/18/17 01/24/19 Unknown History Valproic Acid (As Sodium Salt) 20 ml NGTUBE Q12H 10/18/17 01/24/19 Unknown History [Depakene] amLODIPine [Norvasc] 10 mg NGTUBE DAILY 10/18/17 01/24/19 Unknown History levETIRAcetam [Keppra TAB] 1,000 mg NGTUBE BID 10/18/17 01/24/19 Unknown History Insulin Aspart [NovoLOG Flexpen] See Protocol SQ Q6H 30 Days 10/26/17 01/24/19 Unknown Rx insuln.pen hydrALAZINE [Apresoline TAB] 25 mg PO Q8HR #90 tablet 10/26/17 01/24/19 Unknown Rx Polyethylene Glycol 3350 [Miralax 17 gm PO BID #30 packet 11/10/17 01/24/19 Unknown Rx 3350] Insulin NPH/Regular [NovoLIN 70/30] 15 unit SQ BIDDIAB 01/24/19 01/24/19 Unknown History Active Medications: Generic Name Dose Route Start Last Admin Trade Name Freq PRN Reason Stop Dose Admin Acetaminophen 650 mg 01/21/19 02:23 01/21/19 03:59 Tylenol PO 650 mg Q6H PRN Administration Fever > 101 Amlodipine Besylate 10 mg 01/25/19 10:00 01/26/19 10:00 Norvasc PO 10 mg DAILY PRISCA Administration Dextrose 50 ml 01/19/19 16:42 01/21/19 16:53 D50w (25gm) Syringe IV 50 ml PRN PRN Administration Hypoglycemia Famotidine 20 mg 01/27/19 10:00 Pepcid PO BID PRISCA Hydralazine HCl 50 mg 01/26/19 15:00 01/27/19 05:53 Apresoline PO Not Given Q8HR PRISCA Hydrocortisone Sodium Succinate 150 mg 01/20/19 22:00 01/27/19 05:37 Solu-Cortef IV 150 mg Q8H PRISCA Administration Vancomycin HCl 1,500 mg/ 530 mls @ 333.333 mls/hr 01/23/19 10:00 01/26/19 11:36 Sodium Chloride IV Infused Q24HR PRISCA Infusion Meropenem 1,000 mg/ Sodium 100 mls @ 100 mls/hr 01/24/19 00:00 01/27/19 08:34 Chloride IV 100 mls/hr Q8H PRISCA Administration Protocol Levetiracetam 1,000 mg/ 110 mls @ 400 mls/hr 01/25/19 11:00 01/26/19 22:25 Dextrose IV 01/27/19 23:59 400 mls/hr Q12HR PRISCA Administration Insulin Human Isoph/Insulin Regular 15 unit 01/24/19 17:00 01/27/19 08:35 Humulin 70/30 SUB-Q 15 unit BIDDIAB PRISCA Administration Insulin Human Lispro 0 unit 01/19/19 18:00 01/27/19 05:54 Humalog SUB-Q Not Given Q6HR [facility] Protocol Levetiracetam 1,000 mg 01/28/19 10:00 Keppra PO BID PRISCA Levothyroxine Sodium 200 mcg 01/25/19 06:00 01/27/19 05:37 Synthroid FEEDTUBE 200 mcg DAILY@0600 PRISCA Administration Metoprolol Tartrate 5 mg 01/22/19 14:00 01/27/19 05:38 Lopressor IV Not Given Q6HR PRISCA Oxcarbazepine 900 mg 01/24/19 22:00 01/26/19 21:06 Trileptal PO 900 mg BID PRISCA Administration Potassium Chloride 40 meq 01/27/19 09:00 Potassium Chloride FEEDTUBE 01/27/19 13:01 Q4H PRISCA Valproic Acid 1,000 mg 01/24/19 22:00 01/26/19 21:06 Depakene Liq FEEDTUBE 750 mg BID PRISCA Administration
[2019-01-27] MEDS: NORVASC PO SCH (09:29)
[2019-01-27] MEDS: PEPCID PO SCH ×2 (09:29→22:25)
[2019-01-27] MEDS: POTASSIUM CHLORIDE FEEDTUBE SCH ×2 (09:30→13:32)
[2019-01-27] MEDS ORDERED: KCL 20MEQ/100ML 20 MEQ/100 ML BAG IV SCH (09:30)
[2019-01-27] MEDS: TRILEPTAL PO SCH ×2 (09:30→22:24)
--- NOTE | 2019-01-27 09:48 | Progress Note ---
Assessment and Plan Assessment and plan: 63 y/o male with history of CVA with residual right sided weakness who was brought from home to the ED due to change in mental state. Per report, not verbal at baseline. Per EMS, patient had HR in the 20's and was given atropine. Brought to the ED and was found to be severely hyponatremic as well as h yperkalemic, hypothermic and hypotensive. Subsequently, patient started bleeding from multiple orifices. Prior admission: Patient was noted to have myxedema coma at the time. He continues of full ventilatory support and desipte steroids and abx intervention has not shown any improvement. Per family he is not yet at baseline and are now evaluating hospice due to his clinical condition Cultures are as noted below. He received 1 UNIT PRBC with some improvement noted CXR: IMPRESSION: The endotracheal tube lies in appropriate position Extensive airspace disease in right lung and in left perihilar region, new in comparison to prior examination of earlier in the day. Renal US: IMPRESSION:Nonspecific Renal Parenchymal disease.Slightly complex left renal cyst which is grossly unchanged since CT dated 10/30/17. CT head: No acute pathology Cultures: Blood culture 01/19/2019 Enterococcus faecalis 2 of 4 bottles and MDR Pseudomonas 1 of 4 bottles Urine culture 01/19/2019 Klebsiella. Sputum culture 01/22/2019: MDR Pseudomonas Blood culture 01/22/2019 : no growth Severe sepsis with shock Bleeding from multiple orifices/ Possible DIC- Thrombocytopenia, ANEMIA-ACUTE BLOOD LOSS Acute hypoxic and hypercapnic respiratory failure >96hrs Symptomatic severe sinus bradycardia Severe hyponatremia- Resolved ASHOK, probably vasomotor nephropathy Recurrent Hyperkalemia now Hypokalemia Acute on chronic metabolic encephalopathy DM2 Hypothyroidism--TSH level elevated but free T4 normal History of CVA with residual right sided weakness and non-verbal Chronic sacral decubitus ulcers--Wound care nurse consulted and input noted Chronic dysphagia status post PEG tube placement SEIZURE DISORDER dvt/gi PROPHY scd secondary to thromobocytopenia Plan Continue current antibiotics, spoke with the daughter who is agreeable with Hospice and are going today to visit and select a hospice company Monitor electrolytes and replace and follow cultures SCDs only at this time as we await HIT result Continues on diuretics with Nephrology managing The high probability of a clinically significant, sudden or life threatening deterioration of the [neuro, pulmonary, nephro] system(s) required my full and direct attention, intervention and personal management. The aggregate critical care time was [45] minutes. This time is in addition to time spent performing reported procedures but includes the following: [x] Data Review and interpretation [x] Patient assessment and monitoring of vital signs [x] Documentation [x] Medication orders and management History Interval history: Patient seen and examined, remains on full ventilatory support, no clinical change, nursing reported some generalized tremor, no clear evidence of seizure. Hospitalist Physical - Physical exam Narrative exam: General appearance: Present: mild distress on full MVS - EENT Eyes: Present: PERRL ENT: other (patient is intubated) - Neck Neck: Present: supple - Respiratory Respiratory effort: labored Respiratory: bilateral: rales - Cardiovascular Rhythm: regular) Heart Sounds: Present: S1 & S2 - Extremities Extremity abnormal: pitting edema (in bilateral upper and lower extremities) - Abdominal General gastrointestinal: distended (firm on palpation), normal bowel sounds - Integumentary Integumentary: Present: erythema (sacral decubitus ulcers) - Neurologic Neurologic: other (patient is unresponsive although sluggishly opens eyes on verbal stimuli) - Constitutional Vitals: Temp Pulse Resp BP Pulse Ox 97.3 F L 71 16 164/78 100 01/27/19 08:00 01/27/19 09:29 01/27/19 07:01 01/27/19 09:29 01/27/19 08:52 General appearance: Present: no acute distress Results - Labs CBC & Chem 7: 01/27/19 04:38 01/27/19 04:38 Labs: Laboratory Last Values WBC 8.7 K/mm3 (4.5-11.0) 01/27/19 04:38 RBC 3.10 M/mm3 (3.65-5.03) L 01/27/19 04:38 Hgb 10.3 gm/dl (11.8-15.2) L 01/27/19 04:38 Hct 30.7 % (35.5-45.6) L 01/27/19 04:38 MCV 99 fl (84-94) H 01/27/19 04:38 MCH 33 pg (28-32) H 01/27/19 04:38 MCHC 33 % (32-34) 01/27/19 04:38 RDW 16.4 % (13.2-15.2) H 01/27/19 04:38 Plt Count 57 K/mm3 (140-440) L 01/27/19 04:38 Lymph % (Auto) Principal Quality Engineer 01/19/19 07:48 Baker % (Auto) Principal Quality Engineer 01/19/19 07:48 Eos % (Auto) Principal Quality Engineer 01/19/19 07:48 Baso % (Auto) Principal Quality Engineer 01/19/19 07:48 Lymph # Principal Quality Engineer 01/19/19 07:48 Baker # Principal Quality Engineer 01/19/19 07:48 Eos # Principal Quality Engineer 01/19/19 07:48 Baso # Principal Quality Engineer 01/19/19 07:48 Add Manual Diff Complete 01/23/19 04:25 Total Counted 100 01/23/19 04:25 Seg Neutrophils % Principal Quality Engineer 01/23/19 04:25 Seg Neuts % (Manual) 57.0 % (40.0-70.0) 01/23/19 04:25 Band Neutrophils % 37.0 % 01/23/19 04:25 Lymphocytes % (Manual) 1.0 % (13.4-35.0) L 01/23/19 04:25 Reactive Lymphs % (Man) 0 % 01/23/19 04:25 Monocytes % (Manual) 5.0 % (0.0-7.3) 01/23/19 04:25 Eosinophils % (Manual) 0 % (0.0-4.3) 01/23/19 04:25 Basophils % (Manual) 0 % (0.0-1.8) 01/23/19 04:25 Metamyelocytes % 0 % 01/23/19 04:25 Myelocytes % 0 % 01/23/19 04:25 Promyelocytes % 0 % 01/23/19 04:25 Blast Cells % 0 % 01/23/19 04:25 Nucleated RBC % 11.0 % (0.0-0.9) H 01/23/19 04:25 Seg Neutrophils # Principal Quality Engineer 01/19/19 07:48 Seg Neutrophils # Man 0.0 K/mm3 (1.8-7.7) L 01/23/19 04:25 Band Neutrophils # 0.0 K/mm3 01/23/19 04:25 Lymphocytes # (Manual) 0.0 K/mm3 (1.2-5.4) L 01/23/19 04:25 Abs React Lymphs (Man) 0.0 K/mm3 01/23/19 04:25 Monocytes # (Manual) 0.0 K/mm3 (0.0-0.8) 01/23/19 04:25 Eosinophils # (Manual) 0.0 K/mm3 (0.0-0.4) 01/23/19 04:25 Basophils # (Manual) 0.0 K/mm3 (0.0-0.1) 01/23/19 04:25 Metamyelocytes # 0.0 K/mm3 01/23/19 04:25 Myelocytes # 0.0 K/mm3 01/23/19 04:25 Promyelocytes # 0.0 K/mm3 01/23/19 04:25 Blast Cells # 0.0 K/mm3 01/23/19 04:25 WBC Morphology Not Reportable 01/23/19 04:25 Hypersegmented Neuts Not Reportable 01/23/19 04:25 Hyposegmented Neuts Not Reportable 01/23/19 04:25 Hypogranular Neuts Not Reportable 01/23/19 04:25 Smudge Cells Not Reportable 01/23/19 04:25 Toxic Granulation Not Reportable 01/23/19 04:25 Toxic Vacuolation Not Reportable 01/23/19 04:25 Dohle Bodies Few 01/23/19 04:25 Pelger-Huet Anomaly Not Reportable 01/23/19 04:25 Kaitlyn Rods Not Reportable 01/23/19 04:25 Platelet Estimate Consistent w auto 01/23/19 04:25 Clumped Platelets Not Reportable 01/23/19 04:25 Plt Clumps, EDTA Not Reportable 01/23/19 04:25 Large Platelets Few 01/23/19 04:25 Giant Platelets Not Reportable 01/23/19 04:25 Platelet Satelliting Not Reportable 01/23/19 04:25 Plt Morphology Comment Not Reportable 01/23/19 04:25 RBC Morphology Not Reportable 01/23/19 04:25 Dimorphic RBCs Not Reportable 01/23/19 04:25 Polychromasia Not Reportable 01/23/19 04:25 Hypochromasia Not Reportable 01/23/19 04:25 Poikilocytosis Not Reportable 01/23/19 04:25 Anisocytosis 1+ 01/23/19 04:25 Microcytosis Not Reportable 01/23/19 04:25 Macrocytosis Not Reportable 01/23/19 04:25 Spherocytes Not Reportable 01/23/19 04:25 Pappenheimer Bodies Not Reportable 01/23/19 04:25 Sickle Cells Not Reportable 01/23/19 04:25 Target Cells Few 01/23/19 04:25 Tear Drop Cells Not Reportable 01/23/19 04:25 Ovalocytes Not Reportable 01/23/19 04:25 Helmet Cells Not Reportable 01/23/19 04:25 [place] Bodies Not Reportable 01/23/19 04:25 Henriette Rings Not Reportable 01/23/19 04:25 Gregory Cells Not Reportable 01/23/19 04:25 Bite Cells Not Reportable 01/23/19 04:25 Crenated Cell Not Reportable 01/23/19 04:25 Elliptocytes Not Reportable 01/23/19 04:25 Acanthocytes (Spur) Not Reportable 01/23/19 04:25 Rouleaux Not Reportable 01/23/19 04:25 Hemoglobin C Crystals Not Reportable 01/23/19 04:25 Schistocytes Not Reportable 01/23/19 04:25 Malaria parasites Not Reportable 01/23/19 04:25 Dionisio Bodies Not Reportable 01/23/19 04:25 Hem Pathologist Commnt No 01/23/19 04:25 PT 15.1 Sec. (12.2-14.9) H 01/19/19 Unknown INR 1.12 (0.87-1.13) 01/19/19 Unknown APTT 33.5 Sec. (24.2-36.6) 01/19/19 Unknown POC ABG pH 7.535 (7.35-7.45) H 01/26/19 05:43 POC ABG pCO2 35.2 (35-45) 01/26/19 05:43 POC ABG pO2 65 (80-105) L 01/26/19 05:43 POC ABG HCO3 29.8 (22-26 mml/L) 01/26/19 05:43 POC ABG Total CO2 31 (23-27mmol/L) 01/26/19 05:43 POC ABG O2 Sat 95 01/26/19 05:43 POC ABG Base Excess 7 ((-2) - (+3)mmol/L) 01/26/19 05:43 FiO2 45 % 01/26/19 05:43 Sodium 145 mmol/L (137-145) 01/27/19 04:38 Potassium 3.2 mmol/L (3.6-5.0) L D 01/27/19 04:38 Chloride 104.5 mmol/L (98-107) 01/27/19 04:38 Carbon Dioxide 27 mmol/L (22-30) 01/27/19 04:38 Anion Gap 17 mmol/L 01/27/19 04:38 BUN 33 mg/dL (9-20) H 01/27/19 04:38 Creatinine 1.0 mg/dL (0.8-1.5) 01/27/19 04:38 Estimated GFR > 60 ml/min 01/27/19 04:38 BUN/Creatinine Ratio 33 % 01/27/19 04:38 Glucose 107 mg/dL (75-100) H 01/27/19 04:38 POC Glucose 131 (70-105) H 01/27/19 05:52 Osmolality 268 Mosm/kg 01/20/19 17:52 Lactic Acid 3.20 mmol/L (0.7-2.0) H* 01/19/19 10:24 Uric Acid 5.3 mg/dL (3.5-7.6) 01/20/19 17:52 Calcium 8.5 mg/dL (8.4-10.2) 01/27/19 04:38 Phosphorus 5.90 mg/dL (2.5-4.5) H 01/20/19 Unknown Magnesium 1.80 mg/dL (1.7-2.3) 01/25/19 15:30 Total Bilirubin 0.40 mg/dL (0.1-1.2) 01/21/19 02:45 Direct Bilirubin 0.3 mg/dL (0-0.2) H 01/21/19 02:45 Indirect Bilirubin 0.1 mg/dL 01/21/19 02:45 AST 59 units/L (5-40) H 01/21/19 02:45 ALT 28 units/L (7-56) 01/21/19 02:45 Alkaline Phosphatase 91 units/L (35-129) 01/21/19 02:45 Ammonia 34.0 umol/L (25-60) 01/19/19 07:48 Total Creatine Kinase < 7 units/L (55-170) L 01/19/19 07:46 Troponin T 0.031 ng/mL (0.00-0.029) H D 01/19/19 10:24 C-Reactive Protein 24.80 mg/dL (0.00-1.30) H 01/22/19 11:01 NT-Pro-B Natriuret Pep 50272 pg/mL (0-900) H 01/27/19 04:38 Total Protein 5.7 g/dL (6.3-8.2) L 01/21/19 02:45 Albumin 3.1 g/dL (3.9-5) L 01/21/19 02:45 Albumin/Globulin Ratio 1.2 % 01/21/19 02:45 Triglycerides 78 mg/dL (2-149) 01/19/19 10:24 Cholesterol 130 mg/dL (50-199) 01/19/19 10:24 LDL Cholesterol Direct 71 mg/dL (50-130) 01/19/19 10:24 HDL Cholesterol 53 mg/dL (40-59) 01/19/19 10:24 Cholesterol/HDL Ratio 2.45 % 01/19/19 10:24 TSH 8.530 mlU/mL (0.270-4.200) H 01/19/19 07:46 Free T4 0.92 ng/dL (0.76-1.46) 01/19/19 14:39 Urine Color Yellow (Yellow) 01/19/19 08:30 Urine Turbidity Turbid (Clear) 01/19/19 08:30 Urine pH 5.0 (5.0-7.0) 01/19/19 08:30 Ur Specific [place] 1.020 (1.003-1.030) 01/19/19 08:30 Urine Protein 100 mg/dl mg/dL (Negative) 01/19/19 08:30 Urine Glucose (UA) Neg mg/dL (Negative) 01/19/19 08:30 Urine Ketones Neg mg/dL (Negative) 01/19/19 08:30 Urine Blood Sm (Negative) 01/19/19 08:30 Urine Nitrite Neg (Negative) 01/19/19 08:30 Urine Bilirubin Sm (Negative) 01/19/19 08:30 Urine Ictotest Negative (Negative) 01/19/19 08:30 Urine Urobilinogen < 2.0 mg/dL (<2.0) 01/19/19 08:30 Ur Leukocyte Esterase Mod (Negative) 01/19/19 08:30 Urine WBC (Auto) > 182.0 /HPF (0.0-6.0) H 01/19/19 08:30 Urine RBC (Auto) 134.0 /HPF (0.0-6.0) 01/19/19 08:30 Urine Bacteria (Auto) 4+ /HPF (Negative) 01/19/19 08:30 Urine WBC Clumps 3+ /HPF 01/19/19 08:30 Ur Transition Epith Cell 6 /HPF 01/19/19 08:30 Amorphous Crystals 2+ 01/19/19 08:30 Urine Osmolality 225 Mosm/kg 01/21/19 02:50 Urine Sodium 64 mmol/L 01/21/19 02:50 Urine Potassium 31.83 mmol/L 01/21/19 02:50 Random Vancomycin 38.6 ug/mL (0-40.0) 01/26/19 14:02 Miscellaneous Test Flexitest 1 H 01/22/19 11:34 Blood Type O POSITIVE 01/21/19 12:09 Antibody Screen Negative 01/21/19 12:09 Crossmatch See Detail 01/21/19 12:09 Active Medications - Current Medications Current Medications: Generic Name Dose Route Start Last Admin Trade Name Freq PRN Reason Stop Dose Admin Acetaminophen 650 mg 01/21/19 02:23 01/21/19 03:59 Tylenol PO 650 mg Q6H PRN Administration Fever > 101 Amlodipine Besylate 10 mg 01/25/19 10:00 01/27/19 09:29 Norvasc PO 10 mg DAILY PRISCA Administration Bumetanide 1 mg 01/27/19 10:15 Bumex IV 01/27/19 10:16 ONCE ONE Dextrose 50 ml 01/19/19 16:42 01/21/19 16:53 D50w (25gm) Syringe IV 50 ml PRN PRN Administration Hypoglycemia Famotidine 20 mg 01/27/19 10:00 01/27/19 09:29 Pepcid PO 20 mg BID PRISCA Administration Hydralazine HCl 50 mg 01/26/19 15:00 01/27/19 05:53 Apresoline PO Not Given Q8HR PRIS[facility] Hydrocortisone Sodium Succinate 150 mg 01/20/19 22:00 01/27/19 05:37 Solu-Cortef IV 150 mg Q8H PRISCA Administration Vancomycin HCl 1,500 mg/ 530 mls @ 333.333 mls/hr 01/23/19 10:00 01/26/19 11:36 Sodium Chloride IV Infused Q24HR PRISCA Infusion Meropenem 1,000 mg/ Sodium 100 mls @ 100 mls/hr 01/24/19 00:00 01/27/19 08:34 Chloride IV 100 mls/hr Q8H PRISCA Administration Protocol Levetiracetam 1,000 mg/ 110 mls @ 400 mls/hr 01/25/19 11:00 01/26/19 22:25 Dextrose IV 01/27/19 23:59 400 mls/hr Q12HR PRISAC Administration Insulin Human Isoph/Insulin Regular 15 unit 01/24/19 17:00 01/27/19 08:35 Humulin 70/30 SUB-Q 15 unit BIDDIAB PRISCA Administration Insulin Human Lispro 0 unit 01/19/19 18:00 01/27/19 05:54 Humalog SUB-Q Not Given Q6HR [facility] Protocol Levetiracetam 1,000 mg 01/28/19 10:00 Keppra PO BID PRIS[facility] Levothyroxine Sodium 200 mcg 01/25/19 06:00 01/27/19 05:37 Synthroid FEEDTUBE 200 mcg DAILY@0600 [facility] Administration Metoprolol Tartrate 5 mg 01/22/19 14:00 01/27/19 05:38 Lopressor IV Not Given Q6HR PR[facility] Oxcarbazepine 900 mg 01/24/19 22:00 01/27/19 09:30 Trileptal PO 900 mg BID PRISCA Administration Potassium Chloride 40 meq 01/27/19 09:00 01/27/19 09:30 Potassium Chloride FEEDTUBE 01/27/19 13:01 40 meq Q4H PRISCA Administration Valproic Acid 1,000 mg 01/24/19 22:00 01/26/19 21:06 Depakene Liq FEEDTUBE 750 mg BID PRISCA Administration Nutrition/Malnutrition Assess - Dietary Evaluation Nutrition/Malnutrition Findings: Nutrition Notes Start: 01/20/19 12:26 Freq: Status: Active Protocol: Document 01/23/19 10:31 EB (Rec: 01/23/19 10:34 EB [id number]) Co-Sign 01/23/19 10:31 LP Nutrition Notes Initial or Follow up Reassessment Current Diagnosis Decubitus(Pressure Ulcer), Diabetes,Sepsis,Hypertension, Stroke,Hyperlipidemia Other Pertinent Diagnosis AMS, Bradycardia Current Diet No diet ordered Labs/Tests Na 136 K 3.1 BUN 3 Pertinent Medications Dopamine gtt, Epinephrine gtt, SoluCortef Height 5 ft 11 in Weight 100.6 kg [place] Body Weight (kg) 78.18 BMI 30.9 Weight Status Obese Subjective/Other Information Following for pt stability and TF consult once pt is appropriate for feeding. Pt continues instability and is awating MD order for TF. Percent of energy/protein needs met: 0%/0% Burn Absent Trauma Absent Current % PO Negligible #2 Nutrition Diagnosis Malnutrition Diagnosis Progress(for reassessment Continues documentation) #1 Nutrition Diagnosis Inadequate oral intake Diagnosis Progress(for reassessment Continues documentation) Is patient on ventilator? Yes Is Patient Ambulatory and/or Out of Bed No REE-([facility]-confined to bed) 2180.784 Kcal/Kg value to use for calculation 17 Approximate Energy Requirements Using 1710 kcal/Kg Calculation Used for Recommendations Kcal/kg Additional Notes Pro needs 2g/kgIBW: 156g/day Fluid needs 1ml/kcal Nutrition Intervention Nutrition Support: Start EN support when medically feasible Goal #1 Start EN support to meet nutrient needs Anticipated Discharge Needs: Continue EN support Follow-Up By: 01/27/19 Additional Comments F/U: TF consult
[2019-01-27] MEDS: KEPPRA 1,000 MG in D5W 100 ML IV SCH ×2 (09:53→22:24)
[2019-01-27] MEDS ORDERED: POTASSIUM CHLORIDE FEEDTUBE ONE (09:57)
[2019-01-27] MEDS: DepaKENE Liq FEEDTUBE SCH ×2 (10:09→22:24)
[2019-01-27] MEDS: VANCOMYCIN 1,500 MG in NACL 0.9% 500 ML 500 ML IV SCH (10:10)
[2019-01-27] MEDS ORDERED: BUMEX IV ONE (10:15)
--- NOTE | 2019-01-27 10:41 | Progress Note ---
Assessment and Plan 63 y/o male admitted with severe electrolyte imbalance, hypotension, hypothermia and bradycardia of unknown etiology. Patient is now and AND which is appropriate given his clinical picture Agree with hospice Await family decision as to where Continue all supportive measures CCT 31 minutes. Subjective Date of service: 01/27/19 Principal diagnosis: hypoxic/hypercarbic respiratory failure Interval history: Remains intubated, not on sedation. Family visiting several hospice centers today. Objective Vital Signs - 12hr 01/26/19 01/26/19 01/26/19 23:01 23:31 23:51 Temperature Pulse Rate 62 53 L 60 Pulse Rate [ From Monitor] Respiratory 16 16 Rate Blood Pressure 137/78 117/62 117/62 O2 Sat by Pulse 96 95 98 Oximetry 01/27/19 01/27/19 01/27/19 00:00 00:01 00:31 Temperature 98.3 F Pulse Rate 54 L 58 L 67 Pulse Rate [ 54 L From Monitor] Respiratory 17 11 L 16 Rate Blood Pressure 155/93 155/93 O2 Sat by Pulse 100 98 Oximetry 01/27/19 01/27/19 01/27/19 01:00 01:03 01:31 Temperature Pulse Rate 57 L 56 L 62 Pulse Rate [ From Monitor] Respiratory 11 L 16 Rate Blood Pressure 128/75 128/75 149/85 O2 Sat by Pulse 99 99 Oximetry 01/27/19 01/27/19 01/27/19 02:01 02:31 03:01 Temperature Pulse Rate 47 L 44 L 49 L Pulse Rate [ From Monitor] Respiratory 16 16 15 Rate Blood Pressure 120/64 116/74 138/91 O2 Sat by Pulse 95 99 100 Oximetry 01/27/19 01/27/19 01/27/19 03:22 03:30 04:00 Temperature 98.0 F Pulse Rate 50 L 75 Pulse Rate [ 55 L From Monitor] Respiratory 16 16 Rate Blood Pressure 138/91 144/95 O2 Sat by Pulse 100 99 100 Oximetry 01/27/19 01/27/19 01/27/19 04:01 04:31 05:01 Temperature Pulse Rate 48 L 65 62 Pulse Rate [ From Monitor] Respiratory 16 12 16 Rate Blood Pressure 126/68 144/91 154/79 O2 Sat by Pulse 97 98 100 Oximetry 01/27/19 01/27/19 01/27/19 05:31 05:38 05:53 Temperature Pulse Rate 54 L 56 L 56 L Pulse Rate [ From Monitor] Respiratory 16 Rate Blood Pressure 140/81 144/70 144/70 O2 Sat by Pulse 99 Oximetry 01/27/19 01/27/19 01/27/19 06:01 06:30 07:01 Temperature Pulse Rate 75 76 64 Pulse Rate [ From Monitor] Respiratory 15 15 16 Rate Blood Pressure 148/93 155/92 167/89 O2 Sat by Pulse 100 99 100 Oximetry 01/27/19 01/27/19 01/27/19 07:31 08:00 08:01 Temperature 97.3 F L Pulse Rate 59 L 55 L Pulse Rate [ From Monitor] Respiratory 16 16 Rate Blood Pressure 173/83 158/82 O2 Sat by Pulse 98 100 Oximetry 01/27/19 01/27/19 01/27/19 08:31 08:52 09:01 Temperature Pulse Rate 64 65 63 Pulse Rate [ From Monitor] Respiratory 16 16 Rate Blood Pressure 170/86 164/78 164/78 O2 Sat by Pulse 100 100 100 Oximetry 01/27/19 01/27/19 01/27/19 09:29 09:31 10:00 Temperature Pulse Rate 71 71 56 L Pulse Rate [ From Monitor] Respiratory 16 Rate Blood Pressure 164/78 158/85 O2 Sat by Pulse 100 Oximetry 01/27/19 10:01 Temperature Pulse Rate 64 Pulse Rate [ From Monitor] Respiratory 16 Rate Blood Pressure 147/79 O2 Sat by Pulse 99 Oximetry Constitutional: no acute distress, comatose, other (critically ill) Eyes: non-icteric ENT: other (on vent intubated AC/ PRVC r 16 fio2 45 p10 Ti 0.8 mv 9.45) Neck: no lymphadenopathy, no JVD, other (right IJ in place) Ascultation: Bilateral: diminished breath sounds, rales (sporadic) Cardiovascular: regular rate and rhythm Gastrointestinal: normoactive bowel sounds, other (distended) Extremities: other (right femoral line) Neurologic: unable to assess CBC and BMP: 01/27/19 04:38 01/27/19 04:38 ABG, PT/INR, D-dimer: ABG POC ABG pH 7.535 (7.35-7.45) H 01/26/19 05:43 POC ABG pCO2 35.2 (35-45) 01/26/19 05:43 POC ABG pO2 65 (80-105) L 01/26/19 05:43 POC ABG HCO3 29.8 (22-26 mml/L) 01/26/19 05:43 POC ABG Total CO2 31 (23-27mmol/L) 01/26/19 05:43 POC ABG O2 Sat 95 01/26/19 05:43 PT/INR, D-dimer PT 15.1 Sec. (12.2-14.9) H 01/19/19 Unknown INR 1.12 (0.87-1.13) 01/19/19 Unknown Abnormal lab findings: Abnormal Labs 01/19/19 01/19/19 01/19/19 07:46 07:46 07:46 WBC RBC Hgb Hct MCV MCH RDW Plt Count Seg Neuts % (Manual) Lymphocytes % (Manual) Monocytes % (Manual) Nucleated RBC % Seg Neutrophils # Man Lymphocytes # (Manual) Monocytes # (Manual) PT INR 0.86 L POC ABG pH POC ABG pCO2 POC ABG pO2 Sodium 114 L* Potassium 6.5 H* Chloride 77.4 L Carbon Dioxide BUN 33 H Creatinine Glucose 128 H POC Glucose Lactic Acid 2.50 H* Calcium Phosphorus Direct Bilirubin AST Total Creatine Kinase < 7 L Troponin T C-Reactive Protein NT-Pro-B Natriuret Pep Total Protein Albumin TSH Urine WBC (Auto) Miscellaneous Test Crossmatch 01/19/19 01/19/19 01/19/19 07:46 07:48 08:30 WBC 4.2 L RBC 3.07 L Hgb 10.1 L Hct 30.7 L MCV 100 H MCH 33 H RDW 17.4 H Plt Count Seg Neuts % (Manual) 72.0 H Lymphocytes % (Manual) 11.0 L Monocytes % (Manual) 13.0 H Nucleated RBC % 1.0 H Seg Neutrophils # Man Lymphocytes # (Manual) 0.5 L Monocytes # (Manual) PT INR POC ABG pH POC ABG pCO2 POC ABG pO2 Sodium Potassium Chloride Carbon Dioxide BUN Creatinine Glucose POC Glucose Lactic Acid Calcium Phosphorus Direct Bilirubin AST Total Creatine Kinase Troponin T C-Reactive Protein NT-Pro-B Natriuret Pep Total Protein Albumin TSH 8.530 H Urine WBC (Auto) > 182.0 H Miscellaneous Test Crossmatch 01/19/19 01/19/19 01/19/19 10:24 10:24 10:24 WBC RBC Hgb Hct MCV MCH RDW Plt Count Seg Neuts % (Manual) Lymphocytes % (Manual) Monocytes % (Manual) Nucleated RBC % Seg Neutrophils # Man Lymphocytes # (Manual) Monocytes # (Manual) PT INR POC ABG pH 7.305 L POC ABG pCO2 46.8 H POC ABG pO2 Sodium Potassium Chloride Carbon Dioxide BUN Creatinine Glucose POC Glucose Lactic Acid 3.20 H* Calcium Phosphorus Direct Bilirubin AST Total Creatine Kinase Troponin T 0.031 H D C-Reactive Protein NT-Pro-B Natriuret Pep Total Protein Albumin TSH Urine WBC (Auto) Miscellaneous Test Crossmatch 01/19/19 01/19/19 01/19/19 14:39 15:04 17:00 WBC RBC Hgb Hct MCV MCH RDW Plt Count Seg Neuts % (Manual) Lymphocytes % (Manual) Monocytes % (Manual) Nucleated RBC % Seg Neutrophils # Man Lymphocytes # (Manual) Monocytes # (Manual) PT INR POC ABG pH 7.320 L POC ABG pCO2 POC ABG pO2 58 L Sodium 116 L* 123 L D Potassium 5.7 H Chloride 82.9 L 89.8 L Carbon Dioxide 17 L BUN 31 H 28 H Creatinine Glucose 129 H 135 H POC Glucose Lactic Acid Calcium 8.1 L Phosphorus 4.80 H Direct Bilirubin AST Total Creatine Kinase Troponin T C-Reactive Protein NT-Pro-B Natriuret Pep Total Protein Albumin TSH Urine WBC (Auto) Miscellaneous Test Crossmatch 01/19/19 01/19/19 01/19/19 17:00 22:40 Unknown WBC RBC 3.05 L Hgb 10.0 L Hct 30.7 L MCV 101 H MCH 33 H RDW 16.7 H Plt Count Seg Neuts % (Manual) Lymphocytes % (Manual) Monocytes % (Manual) Nucleated RBC % Seg Neutrophils # Man Lymphocytes # (Manual) Monocytes # (Manual) PT 15.1 H INR POC ABG pH POC ABG pCO2 POC ABG pO2 Sodium 121 L Potassium 5.2 H Chloride 86.9 L Carbon Dioxide BUN 30 H Creatinine Glucose POC Glucose Lactic Acid Calcium Phosphorus 5.20 H Direct Bilirubin AST Total Creatine Kinase Troponin T C-Reactive Protein NT-Pro-B Natriuret Pep Total Protein Albumin TSH Urine WBC (Auto) Miscellaneous Test Crossmatch 01/20/19 01/20/19 01/20/19 04:20 16:00 17:39 WBC RBC Hgb Hct MCV MCH RDW Plt Count Seg Neuts % (Manual) Lymphocytes % (Manual) Monocytes % (Manual) Nucleated RBC % Seg Neutrophils # Man Lymphocytes # (Manual) Monocytes # (Manual) PT INR POC ABG pH POC ABG pCO2 POC ABG pO2 Sodium 120 L 119 L* Potassium 5.9 H 7.0 H* Chloride 87.0 L 85.7 L Carbon Dioxide 20 L 18 L BUN 31 H 35 H Creatinine 1.9 H Glucose 120 H POC Glucose 40 L Lactic Acid Calcium 8.1 L 8.0 L Phosphorus 5.10 H 5.80 H Direct Bilirubin AST Total Creatine Kinase Troponin T C-Reactive Protein NT-Pro-B Natriuret Pep Total Protein Albumin TSH Urine WBC (Auto) Miscellaneous Test Crossmatch 01/20/19 01/20/19 01/21/19 22:33 Unknown 00:18 WBC RBC Hgb Hct MCV MCH RDW Plt Count Seg Neuts % (Manual) Lymphocytes % (Manual) Monocytes % (Manual) Nucleated RBC % Seg Neutrophils # Man Lymphocytes # (Manual) Monocytes # (Manual) PT INR POC ABG pH POC ABG pCO2 POC ABG pO2 Sodium 125 L D 120 L Potassium 6.2 H* 6.2 H* Chloride 87.3 L 85.8 L Carbon Dioxide 17 L BUN 37 H 33 H Creatinine 1.9 H 1.6 H Glucose 71 L POC Glucose 152 H Lactic Acid Calcium 8.1 L Phosphorus 5.90 H Direct Bilirubin AST Total Creatine Kinase Troponin T C-Reactive Protein NT-Pro-B Natriuret Pep Total Protein Albumin TSH Urine WBC (Auto) Miscellaneous Test Crossmatch 01/21/19 01/21/19 01/21/19 02:45 02:45 02:45 WBC 18.8 H RBC 2.36 L Hgb 7.6 L Hct 25.1 L MCV 99 H MCH RDW 16.4 H Plt Count 97 L Seg Neuts % (Manual) 29.0 L Lymphocytes % (Manual) 4.0 L Monocytes % (Manual) Nucleated RBC % 5.0 H Seg Neutrophils # Man Lymphocytes # (Manual) 0.8 L Monocytes # (Manual) PT INR POC ABG pH POC ABG pCO2 POC ABG pO2 Sodium 125 L Potassium 5.8 H Chloride 86.9 L Carbon Dioxide BUN 35 H Creatinine 1.9 H Glucose 119 H POC Glucose Lactic Acid Calcium Phosphorus Direct Bilirubin 0.3 H AST 59 H Total Creatine Kinase Troponin T C-Reactive Protein NT-Pro-B Natriuret Pep Total Protein 5.7 L Albumin 3.1 L TSH Urine WBC (Auto) Miscellaneous Test Crossmatch 01/21/19 01/21/19 01/21/19 05:26 05:42 06:41 WBC RBC Hgb Hct MCV MCH RDW Plt Count Seg Neuts % (Manual) Lymphocytes % (Manual) Monocytes % (Manual) Nucleated RBC % Seg Neutrophils # Man Lymphocytes # (Manual) Monocytes # (Manual) PT INR POC ABG pH 7.274 L POC ABG pCO2 58.6 H POC ABG pO2 77 L Sodium Potassium Chloride Carbon Dioxide BUN Creatinine Glucose POC Glucose 182 H Lactic Acid Calcium Phosphorus Direct Bilirubin AST Total Creatine Kinase Troponin T C-Reactive Protein NT-Pro-B Natriuret Pep Total Protein Albumin TSH Urine WBC (Auto) Miscellaneous Test Crossmatch 01/21/19 01/21/19 01/21/19 12:09 12:41 17:44 WBC RBC Hgb Hct MCV MCH RDW Plt Count Seg Neuts % (Manual) Lymphocytes % (Manual) Monocytes % (Manual) Nucleated RBC % Seg Neutrophils # Man Lymphocytes # (Manual) Monocytes # (Manual) PT INR POC ABG pH POC ABG pCO2 POC ABG pO2 Sodium Potassium Chloride Carbon Dioxide BUN Creatinine Glucose POC Glucose 129 H 174 H Lactic Acid Calcium Phosphorus Direct Bilirubin AST Total Creatine Kinase Troponin T C-Reactive Protein NT-Pro-B Natriuret Pep Total Protein Albumin TSH Urine WBC (Auto) Miscellaneous Test Crossmatch See Detail 01/21/19 01/21/19 01/22/19 20:00 23:47 04:17 WBC 34.5 H RBC 2.34 L Hgb 7.5 L Hct 22.7 L MCV 97 H MCH RDW 16.0 H Plt Count 36 L Seg Neuts % (Manual) 77.0 H Lymphocytes % (Manual) 1.0 L Monocytes % (Manual) Nucleated RBC % 1.0 H Seg Neutrophils # Man 26.6 H Lymphocytes # (Manual) 0.3 L Monocytes # (Manual) 1.4 H PT INR POC ABG pH POC ABG pCO2 POC ABG pO2 Sodium 131 L Potassium 3.5 L D Chloride 88.6 L Carbon Dioxide BUN 32 H Creatinine Glucose 117 H POC Glucose 110 H Lactic Acid Calcium Phosphorus Direct Bilirubin AST Total Creatine Kinase Troponin T C-Reactive Protein NT-Pro-B Natriuret Pep Total Protein Albumin TSH Urine WBC (Auto) Miscellaneous Test Crossmatch 01/22/19 01/22/19 01/22/19 04:17 04:45 05:16 WBC RBC Hgb Hct MCV MCH RDW Plt Count Seg Neuts % (Manual) Lymphocytes % (Manual) Monocytes % (Manual) Nucleated RBC % Seg Neutrophils # Man Lymphocytes # (Manual) Monocytes # (Manual) PT INR POC ABG pH 7.492 H POC ABG pCO2 POC ABG pO2 64 L Sodium 131 L Potassium 2.9 L* Chloride 89.8 L Carbon Dioxide BUN 30 H Creatinine Glucose POC Glucose 116 H Lactic Acid Calcium Phosphorus Direct Bilirubin AST Total Creatine Kinase Troponin T C-Reactive Protein NT-Pro-B Natriuret Pep Total Protein Albumin TSH Urine WBC (Auto) Miscellaneous Test Crossmatch 01/22/19 01/22/19 01/22/19 11:01 11:34 12:01 WBC RBC Hgb Hct MCV MCH RDW Plt Count Seg Neuts % (Manual) Lymphocytes % (Manual) Monocytes % (Manual) Nucleated RBC % Seg Neutrophils # Man Lymphocytes # (Manual) Monocytes # (Manual) PT INR POC ABG pH POC ABG pCO2 POC ABG pO2 Sodium Potassium Chloride Carbon Dioxide BUN Creatinine Glucose POC Glucose 119 H Lactic Acid Calcium Phosphorus Direct Bilirubin AST Total Creatine Kinase Troponin T C-Reactive Protein 24.80 H NT-Pro-B Natriuret Pep Total Protein Albumin TSH Urine WBC (Auto) Miscellaneous Test Flexitest 1 H Crossmatch 01/22/19 01/22/19 01/23/19 16:50 23:38 04:25 WBC 26.4 H RBC 2.44 L Hgb 7.8 L Hct 23.7 L MCV 97 H MCH RDW 16.2 H Plt Count 22 L Seg Neuts % (Manual) Lymphocytes % (Manual) 1.0 L Monocytes % (Manual) Nucleated RBC % 11.0 H Seg Neutrophils # Man 0.0 L Lymphocytes # (Manual) 0.0 L Monocytes # (Manual) PT INR POC ABG pH POC ABG pCO2 POC ABG pO2 Sodium 132 L Potassium 2.8 L* Chloride 92.4 L Carbon Dioxide BUN 29 H Creatinine Glucose POC Glucose 111 H Lactic Acid Calcium Phosphorus Direct Bilirubin AST Total Creatine Kinase Troponin T C-Reactive Protein NT-Pro-B Natriuret Pep Total Protein Albumin TSH Urine WBC (Auto) Miscellaneous Test Crossmatch 01/23/19 01/23/19 01/23/19 04:55 05:42 08:39 WBC RBC Hgb Hct MCV MCH RDW Plt Count Seg Neuts % (Manual) Lymphocytes % (Manual) Monocytes % (Manual) Nucleated RBC % Seg Neutrophils # Man Lymphocytes # (Manual) Monocytes # (Manual) PT INR POC ABG pH 7.488 H POC ABG pCO2 POC ABG pO2 55 L Sodium 136 L Potassium 3.1 L Chloride 94.5 L Carbon Dioxide BUN 36 H Creatinine Glucose POC Glucose 107 H Lactic Acid Calcium Phosphorus Direct Bilirubin AST Total Creatine Kinase Troponin T C-Reactive Protein NT-Pro-B Natriuret Pep Total Protein Albumin TSH Urine WBC (Auto) Miscellaneous Test Crossmatch 01/23/19 01/23/19 01/23/19 12:08 16:54 18:06 WBC RBC Hgb Hct MCV MCH RDW Plt Count Seg Neuts % (Manual) Lymphocytes % (Manual) Monocytes % (Manual) Nucleated RBC % Seg Neutrophils # Man Lymphocytes # (Manual) Monocytes # (Manual) PT INR POC ABG pH POC ABG pCO2 POC ABG pO2 Sodium Potassium 3.2 L Chloride 96.9 L Carbon Dioxide BUN 39 H Creatinine Glucose 109 H POC Glucose 108 H 115 H Lactic Acid Calcium Phosphorus Direct Bilirubin AST Total Creatine Kinase Troponin T C-Reactive Protein NT-Pro-B Natriuret Pep Total Protein Albumin TSH Urine WBC (Auto) Miscellaneous Test Crossmatch 01/24/19 01/24/19 01/24/19 00:44 03:47 05:38 WBC RBC Hgb Hct MCV MCH RDW Plt Count Seg Neuts % (Manual) Lymphocytes % (Manual) Monocytes % (Manual) Nucleated RBC % Seg Neutrophils # Man Lymphocytes # (Manual) Monocytes # (Manual) PT INR POC ABG pH 7.504 H POC ABG pCO2 34.9 L POC ABG pO2 62 L Sodium Potassium Chloride Carbon Dioxide BUN Creatinine Glucose POC Glucose 137 H 120 H Lactic Acid Calcium Phosphorus Direct Bilirubin AST Total Creatine Kinase Troponin T C-Reactive Protein NT-Pro-B Natriuret Pep Total Protein Albumin TSH Urine WBC (Auto) Miscellaneous Test Crossmatch 01/24/19 01/24/19 01/24/19 07:48 11:43 17:49 WBC RBC Hgb Hct MCV MCH RDW Plt Count Seg Neuts % (Manual) Lymphocytes % (Manual) Monocytes % (Manual) Nucleated RBC % Seg Neutrophils # Man Lymphocytes # (Manual) Monocytes # (Manual) PT INR POC ABG pH POC ABG pCO2 POC ABG pO2 Sodium Potassium Chloride Carbon Dioxide BUN Creatinine Glucose POC Glucose 112 H 126 H 149 H Lactic Acid Calcium Phosphorus Direct Bilirubin AST Total Creatine Kinase Troponin T C-Reactive Protein NT-Pro-B Natriuret Pep Total Protein Albumin TSH Urine WBC (Auto) Miscellaneous Test Crossmatch 01/24/19 01/25/19 01/25/19 23:35 03:52 05:15 WBC RBC Hgb Hct MCV MCH RDW Plt Count Seg Neuts % (Manual) Lymphocytes % (Manual) Monocytes % (Manual) Nucleated RBC % Seg Neutrophils # Man Lymphocytes # (Manual) Monocytes # (Manual) PT INR POC ABG pH 7.479 H POC ABG pCO2 POC ABG pO2 Sodium Potassium Chloride Carbon Dioxide BUN Creatinine Glucose POC Glucose 128 H 126 H Lactic Acid Calcium Phosphorus Direct Bilirubin AST Total Creatine Kinase Troponin T C-Reactive Protein NT-Pro-B Natriuret Pep Total Protein Albumin TSH Urine WBC (Auto) Miscellaneous Test Crossmatch 01/25/19 01/25/19 01/25/19 09:50 14:17 15:30 WBC RBC Hgb Hct MCV MCH RDW Plt Count Seg Neuts % (Manual) Lymphocytes % (Manual) Monocytes % (Manual) Nucleated RBC % Seg Neutrophils # Man Lymphocytes # (Manual) Monocytes # (Manual) PT INR POC ABG pH POC ABG pCO2 POC ABG pO2 Sodium Potassium 3.2 L Chloride Carbon Dioxide BUN 41 H Creatinine Glucose 123 H POC Glucose 151 H 132 H Lactic Acid Calcium 8.2 L Phosphorus Direct Bilirubin AST Total Creatine Kinase Troponin T C-Reactive Protein NT-Pro-B Natriuret Pep Total Protein Albumin TSH Urine WBC (Auto) Miscellaneous Test Crossmatch 01/25/19 01/26/19 01/26/19 17:40 04:45 04:45 WBC RBC 2.82 L Hgb 9.2 L Hct 27.7 L MCV 98 H MCH 33 H RDW 16.4 H Plt Count 46 L Seg Neuts % (Manual) Lymphocytes % (Manual) Monocytes % (Manual) Nucleated RBC % Seg Neutrophils # Man Lymphocytes # (Manual) Monocytes # (Manual) PT INR POC ABG pH POC ABG pCO2 POC ABG pO2 Sodium Potassium Chloride Carbon Dioxide BUN 40 H Creatinine Glucose POC Glucose 114 H Lactic Acid Calcium Phosphorus Direct Bilirubin AST Total Creatine Kinase Troponin T C-Reactive Protein NT-Pro-B Natriuret Pep Total Protein Albumin TSH Urine WBC (Auto) Miscellaneous Test Crossmatch 01/26/19 01/26/19 01/27/19 05:43 12:54 00:22 WBC RBC Hgb Hct MCV MCH RDW Plt Count Seg Neuts % (Manual) Lymphocytes % (Manual) Monocytes % (Manual) Nucleated RBC % Seg Neutrophils # Man Lymphocytes # (Manual) Monocytes # (Manual) PT INR POC ABG pH 7.535 H POC ABG pCO2 POC ABG pO2 65 L Sodium Potassium Chloride Carbon Dioxide BUN Creatinine Glucose POC Glucose 150 H 156 H Lactic Acid Calcium Phosphorus Direct Bilirubin AST Total Creatine Kinase Troponin T C-Reactive Protein NT-Pro-B Natriuret Pep Total Protein Albumin TSH Urine WBC (Auto) Miscellaneous Test Crossmatch 01/27/19 01/27/19 01/27/19 04:38 04:38 05:52 WBC RBC 3.10 L Hgb 10.3 L Hct 30.7 L MCV 99 H MCH 33 H RDW 16.4 H Plt Count 57 L Seg Neuts % (Manual) Lymphocytes % (Manual) Monocytes % (Manual) Nucleated RBC % Seg Neutrophils # Man Lymphocytes # (Manual) Monocytes # (Manual) PT INR POC ABG pH POC ABG pCO2 POC ABG pO2 Sodium Potassium 3.2 L D Chloride Carbon Dioxide BUN 33 H Creatinine Glucose 107 H POC Glucose 131 H Lactic Acid Calcium Phosphorus Direct Bilirubin AST Total Creatine Kinase Troponin T C-Reactive Protein NT-Pro-B Natriuret Pep 63565 H Total Protein Albumin TSH Urine WBC (Auto) Miscellaneous Test Crossmatch
--- NOTE | 2019-01-27 11:11 | Progress Note ---
Assessment and Plan Cultures: Blood culture 01/19/2019 Enterococcus faecalis 2 of 4 bottles and MDR Pseudomonas 1 of 4 bottles Urine culture 01/19/2019 Klebsiella. 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 Per , he is contracted and non verbal at baseline but then she noted cold temperature, worsening sleepiness and wheezing for 2-3 days: 1) Shock likely mixed cardiogenic due to symptomatic bradycardia +/- ?mixedema coma +/- septic: Improved. Septic etiology most likely Enterococcus bacteremia +/- Klebsiella UTI +/- pneumonia. CRP 24. Procalcitonin 129.30 2) Enterococcus and MDR Pseudomonas bacteremia: unclear source, ?lung; TTE no vegetations. 3) Klebsiella UTI: UA 185 wbc, LE moderate. Urine culture 01/19/2019 Klebsiella 4) Pneumonia: likely aspiration pneumonia. Sputum, MDR Pseudomonas . CXR showed extensive airspace disease in right lung and in left perihilar region, new in comparison to prior examination. 5) Acute on chronic encephalopathy: multifactorial from hyponatremia, symptomatic bradycardia and sepsis 6) Uncontrolled hypothyroidism Recommendations: - remove right femoral TLC jose - contact isolation due to MDR Pseudomonas - continue meropenem, D4 - continue vancomycin D5 Anticipate discharge on Vancomycin 1.5 g IV q day and meropenem 1 gm iv every 8 hours until 02/04/19 -Order placed with case management -follow-up repeat blood cultures -f/u repeat Procalcitonin [facility] M: [phone] O:[phone] Subjective Date of service: 01/27/19 Principal diagnosis: hypoxic/hypercarbic respiratory failure Interval history: Patient seen and examined. Intubated. Unresponsive. No fevers. Objective - Exam Narrative Exam: General appearance: intubated in NAD, Does not follow commands. Eyes: anicteric sclerae, moist conjunctivae; no lid-lag; PERRLA HENT: Atraumatic; oropharynx +ETT +NGT . Neck: Trachea midline; supple, no thyromegaly or lymphadenopathy Lungs: bilateral rhonchi CV: irreg Abdomen: Soft, non-tender;+PEG Extremities: bilateral leg edema, right hand edema Skin: Normal temperature, turgor and texture; no rash, ulcers or subcutaneous nodules Psych: calm. Neuro: non verbal, contracted. - Constitutional Vitals: Vital Signs Temp Pulse Resp BP Pulse Ox 97.3 F L 64 16 147/79 99 01/27/19 08:00 01/27/19 10:01 01/27/19 10:01 01/27/19 10:01 01/27/19 10:01 Temperature -Last 24 Hours Temperature 97.3 F Temperature 98.0 F Temperature 98 F Temperature 98.3 F Temperature 98.8 F Temperature 98.9 F - Labs CBC & Chem 7: 01/27/19 04:38 01/27/19 04:38 Labs: Abnormal lab results 01/26/19 01/27/19 01/27/19 Range/Units 12:54 00:22 04:38 RBC 3.10 L (3.65-5.03) M/mm3 Hgb 10.3 L (11.8-15.2) gm/dl Hct 30.7 L (35.5-45.6) % MCV 99 H (84-94) fl MCH 33 H (28-32) pg RDW 16.4 H (13.2-15.2) % Plt Count 57 L (140-440) K/mm3 Potassium (3.6-5.0) mmol/L BUN (9-20) mg/dL Glucose (75-100) mg/dL POC Glucose 150 H 156 H (70-105) NT-Pro-B Natriuret Pep (0-900) pg/mL 01/27/19 01/27/19 Range/Units 04:38 05:52 RBC (3.65-5.03) M/mm3 Hgb (11.8-15.2) gm/dl Hct (35.5-45.6) % MCV (84-94) fl MCH (28-32) pg RDW (13.2-15.2) % Plt Count (140-440) K/mm3 Potassium 3.2 L D (3.6-5.0) mmol/L BUN 33 H (9-20) mg/dL Glucose 107 H (75-100) mg/dL POC Glucose 131 H (70-105) NT-Pro-B Natriuret Pep 70483 H (0-900) pg/mL
--- NOTE | 2019-01-27 11:39 | Progress Note ---
Assessment and Plan Patient remains critically ill with a guarded prognosis. He is stable from a cardiac standpoint. We will sign off for now. Patient was seen in conjunction with Dr. Anne Blancas, who agrees with assessment and plan. - Patient Problems (1) Altered mental status Current Visit: Yes Status: Acute (2) Sepsis Current Visit: Yes Status: Acute (3) Atrial fibrillation Current Visit: Yes Status: Acute (4) Dehydration Current Visit: Yes Status: Acute (5) Anemia Current Visit: No Status: Chronic Qualifiers: Anemia type: unspecified type Qualified Code(s): D64.9 - Anemia, unspecified (6) Hyperkalemia Current Visit: Yes Status: Acute (7) Bradycardia Current Visit: Yes Status: Acute (8) Hyponatremia Current Visit: Yes Status: Acute (9) Hypotension Current Visit: Yes Status: Acute (10) History of CVA (cerebrovascular accident) Current Visit: Yes Status: Acute (11) Hypothyroidism Current Visit: No Status: Chronic (12) Chronic ulcer of sacral region Current Visit: Yes Status: Acute (13) Dysphagia Current Visit: No Status: Acute (14) UTI (urinary tract infection) Current Visit: No Status: Acute Subjective Date of service: 01/27/19 Principal diagnosis: hypoxic/hypercarbic respiratory failure Interval history: Patient remains intubated and minimally responsive. Withdraws from pain. Remains in afib with rates dropping into 40s at times. Objective Vital Signs Temp Pulse Pulse Resp BP Pulse Ox 01/27/19 10:01 64 16 147/79 99 01/27/19 10:00 56 L 01/27/19 09:31 71 16 158/85 100 01/27/19 09:29 71 164/78 01/27/19 09:01 63 16 164/78 100 01/27/19 08:52 65 164/78 100 01/27/19 08:31 64 16 170/86 100 01/27/19 08:01 55 L 16 158/82 100 01/27/19 08:00 97.3 F L 56 L 99 H 100 01/27/19 07:31 59 L 16 173/83 98 01/27/19 07:01 64 16 167/89 100 01/27/19 06:30 76 15 155/92 99 01/27/19 06:01 75 15 148/93 100 01/27/19 05:53 56 L 144/70 01/27/19 05:38 56 L 144/70 01/27/19 05:31 54 L 16 140/81 99 01/27/19 05:01 62 16 154/79 100 01/27/19 04:31 65 12 144/91 98 01/27/19 04:01 48 L 16 126/68 97 01/27/19 04:00 98.0 F 55 L 16 100 01/27/19 03:30 75 16 144/95 99 01/27/19 03:22 50 L 138/91 100 01/27/19 03:01 49 L 15 138/91 100 01/27/19 02:31 44 L 16 116/74 99 01/27/19 02:01 47 L 16 120/64 95 01/27/19 01:31 62 16 149/85 99 01/27/19 01:03 56 L 128/75 01/27/19 01:00 57 L 11 L 128/75 99 01/27/19 00:31 67 16 155/93 01/27/19 00:01 58 L 11 L 155/93 98 01/27/19 00:00 98.3 F 54 L 54 L 17 100 01/26/19 23:51 60 117/62 98 01/26/19 23:31 53 L 16 117/62 95 01/26/19 23:01 62 16 137/78 96 01/26/19 22:31 66 16 149/89 97 01/26/19 22:07 80 17 160/88 99 01/26/19 21:07 67 160/88 01/26/19 21:01 62 17 160/88 98 01/26/19 20:31 63 21 162/94 98 01/26/19 20:01 60 18 160/86 99 01/26/19 20:00 98.8 F 65 18 99 01/26/19 19:48 58 L 160/90 100 01/26/19 19:41 40 L 22 160/90 100 01/26/19 19:31 61 16 160/90 99 01/26/19 19:01 63 17 158/92 99 01/26/19 18:30 66 9 L 166/102 100 01/26/19 18:00 65 15 154/88 99 01/26/19 17:31 61 22 154/88 100 01/26/19 17:01 57 L 25 H 156/90 100 01/26/19 16:31 64 16 145/97 100 01/26/19 16:15 64 156/90 100 01/26/19 16:01 62 19 158/89 99 01/26/19 16:00 62 21 98 01/26/19 15:31 56 L 21 151/93 100 01/26/19 15:00 53 L 19 156/90 97 01/26/19 14:31 61 14 145/88 100 01/26/19 14:01 62 20 159/88 100 01/26/19 13:31 63 16 176/102 100 01/26/19 13:01 70 14 181/115 100 01/26/19 12:40 70 181/98 100 01/26/19 12:31 70 22 181/98 100 01/26/19 12:01 75 16 182/107 100 01/26/19 12:00 98.9 F 62 181/98 - Physical Examination General: Other (intubated, unresponsive) HEENT: Positive: Normocephaly Neck: Positive: neck supple, trachea midline Cardiac: Positive: irregularly irregular Lungs: Positive: Ventilated Respirations (Coarse) Neuro: Positive: Other (intubated, unresponsive) Abdomen: Positive: Soft, Active Bowel Sounds, Distended. Negative: Tender /Rectal: Normal Prostate, No Masses Skin: Positive: Wound (open wound to left foot. ). Negative: Rash Musculoskeletal: No Fluid Collection Gait: Normal Gait Extremities: Present: edema (trace nonpitting BLE edema) - Labs and Meds CBC 01/27/19 Range/Units 04:38 WBC 8.7 (4.5-11.0) K/mm3 RBC 3.10 L (3.65-5.03) M/mm3 Hgb 10.3 L (11.8-15.2) gm/dl Hct 30.7 L (35.5-45.6) % Plt Count 57 L (140-440) K/mm3 Comprehensive Metabolic Panel 01/27/19 Range/Units 04:38 Sodium 145 (137-145) mmol/L Potassium 3.2 L D (3.6-5.0) mmol/L Chloride 104.5 (98-107) mmol/L Carbon Dioxide 27 (22-30) mmol/L BUN 33 H (9-20) mg/dL Creatinine 1.0 (0.8-1.5) mg/dL Glucose 107 H (75-100) mg/dL Calcium 8.5 (8.4-10.2) mg/dL - Imaging and Cardiology EKG: image reviewed Echo: report reviewed (01/19/19: EF 55-60%, trace MR, mild TR, mild aortic leaflet calcification) - Telemetry EKG Rhythm: Atrial Fibrillation AV and intraventricular conduction: intraventricular conducti
[2019-01-27] MEDS ORDERED: ADRENALIN ONE (21:37)
[2019-01-27] MEDS: D50W (25GM) Syringe IV PRN (22:54)
[2019-01-28] MEDS: MERREM 1,000 MG in NACL 0.9% 100 ML IV SCH ×2 (00:12→08:31)
[2019-01-28] MEDS: HumaLOG SUB-Q SCH ×2 (00:19→06:00)
[2019-01-28] MEDS: LOPRESSOR IV SCH ×2 (00:20→06:00)
[2019-01-28] MEDS: SYNTHROID FEEDTUBE SCH (06:00)
[2019-01-28] MEDS: APRESOLINE PO SCH (07:26)
--- NOTE | 2019-01-28 08:36 | Discharge Summary ---
Providers - Providers Date of Admission: 01/19/19 11:26 Date of discharge: 01/28/19 Attending physician: ARMANDO SOUSA 01/19/19 09:37 Consult to Physician [CONS] Stat Comment: Consulting Provider: EDMAR ECHEVARRIA Physician Instructions: Reason For Exam: SEVERE BRADYCARDIA 01/19/19 10:46 Consult to Physician [CONS] Stat Comment: Consulting Provider: MIKEL CHRISTIANSON Physician Instructions: Reason For Exam: AMS, BRADYCARDIA, HYPOKALEMIA,HYPONATREMIA 01/19/19 14:10 Consult to Wound/ET Nurse [CONS] Routine Reason For Exam: wound eval 01/20/19 09:33 Consult to Physician [CONS] Routine Comment: Consulting Provider: VERENICE THOMAS Physician Instructions: Reason For Exam: electrolyte abnormalities 01/20/19 15:32 Consult to Dietitian/Nutrition [CONS] Routine Physician Instructions: Reason For Exam: Reason for Consult: Malnutrition 01/21/19 09:41 Consult to Physician [CONS] Routine Comment: Consulting Provider: GLORIA CHASE Physician Instructions: Reason For Exam: severe sepsis 01/22/19 15:00 Consult to PICC Line RN [CONS] Routine Reason For Exam: IV access Type Line:: Midline 01/27/19 16:24 Consult to Case Management [CONS] Routine Services Needed at Discharge: Home Health Services Additional Physician Instructions: [facility] ([facility]) M [phone] O [phone] F [phone] OUTPATIENT PARENTERAL ANTIBIOTIC THERAPY ORDERS Diagnoses: Eteroccocus and MDR pseudomonas Antimicrobial administration: Anticipate discharge on Vancomycin 1.5 g IV q day and meropenem 1 gm iv every 8 hours until 02/04/19 Remove MIDLINE after last dose unless otherwise instructed. Lines: MIDLINE Lab monitoring: CBC, BUN, Creatinine, ALT, AST, vancomycin trough once a week preferly on Sunday morning. Please fax results to [phone] and call [phone] for critical lab results. Erin Conner NP/Gloria Rich MD Date: 01/27/19 Hospitalization Condition: Poor Hospital course: Patient is a 63 yo man with a history of IDDM, hypertension, hypothyroidism, seizure disorder and CVA with aphasia, right hemiparesis and severe contractures who presented to [facility] ED on 01/19/19 with AMS, severe bradycardia, severe hyponatremic, hypothermic, hypotensive and hyperkalemic. He started bleeding from multiple orifices. He was diagnosis with sepsis UTI also. He was electively intubated in the ICU by Dr. Ermias García. Discharge Diagnoses: Severe sepsis with shock Bleeding from multiple orifices/ Possible DIC- Thrombocytopenia, ANEMIA-ACUTE BLOOD LOSS Acute hypoxic and hypercapnic respiratory failure >96hrs Symptomatic severe sinus bradycardia Severe hyponatremia- Resolved ASHOK, probably vasomotor nephropathy Recurrent Hyperkalemia now Hypokalemia Acute on chronic metabolic encephalopathy DM2 Hypothyroidism--TSH level elevated but free T4 normal History of CVA with residual right sided weakness and non-verbal Chronic sacral decubitus ulcers--Wound care nurse consulted and input noted Chronic dysphagia status post PEG tube placement SEIZURE DISORDER dvt/gi PROPHY scd secondary to thromobocytopenia D/C to [facility] Facility Disposition: [facility] ([facility]) Time spent for discharge: 32 minutes Core Measure Documentation - Palliative Care Palliative Care/ Comfort Measures: Hospice Care Exam - Physical Exam Narrative exam: General appearance: Present: mild distress on full MVS - EENT Eyes: Present: PERRL ENT: other (patient is intubated) - Neck Neck: Present: supple - Respiratory Respiratory effort: labored Respiratory: bilateral: rales - Cardiovascular Rhythm: regular) Heart Sounds: Present: S1 & S2 - Extremities Extremity abnormal: pitting edema (in bilateral upper and lower extremities) - Abdominal General gastrointestinal: distended (firm on palpation), normal bowel sounds - Integumentary Integumentary: Present: erythema (sacral decubitus ulcers) - Neurologic Neurologic: other (patient is unresponsive although sluggishly opens eyes on verbal stimuli) - Constitutional Vitals: Temp Pulse Resp BP Pulse Ox 98.4 F 68 16 156/84 99 01/28/19 08:00 01/28/19 08:01 01/28/19 08:01 01/28/19 08:01 01/28/19 08:01 Plan Additional Instructions: Comfort measures only Follow up with: PRIMARY CARE, [Referring] - 3-5 Days
--- NOTE | 2019-01-28 08:55 | Progress Note ---
Assessment and Plan Impression * Acute kidney injury * Respiratory failure * Anasarca * Sepsis * Complex renal cyst * History of myxedema coma Recommendations * Patient's renal function has improved significantly. * He is still however quite edematous. Continue diuretics as needed * Replace potassium * Serum sodium is also high normal. He will need free water intake * For his complex renal cyst he will need periodic follow-up. He had a CT scan done in October 2017. * Give additional Bumex today * Plans for transfer to hospice noted Subjective Date of service: 01/28/19 Principal diagnosis: hypoxic/hypercarbic respiratory failure Interval history: Patient remains on the ventilator. Currently on 35% oxygen. Oxygen saturation at 100%. Unresponsive. Plans for hospice noted Objective - Vital Signs Vital signs: Vital Signs - 12hr 01/27/19 01/27/19 01/27/19 21:01 21:31 22:01 Temperature Pulse Rate 46 L 64 58 L Pulse Rate [ From Monitor] Respiratory 16 17 16 Rate Blood Pressure 107/59 141/57 149/47 O2 Sat by Pulse 98 99 100 Oximetry 01/27/19 01/27/19 01/27/19 22:31 22:54 23:01 Temperature Pulse Rate 58 L 53 L 56 L Pulse Rate [ From Monitor] Respiratory 16 16 Rate Blood Pressure 132/61 132/61 132/63 O2 Sat by Pulse 100 100 Oximetry 01/27/19 01/27/19 01/27/19 23:19 23:31 23:39 Temperature Pulse Rate 51 L 47 L 51 L Pulse Rate [ From Monitor] Respiratory 16 16 Rate Blood Pressure 132/63 111/56 111/56 O2 Sat by Pulse 100 100 99 Oximetry 01/28/19 01/28/19 01/28/19 00:00 00:20 00:31 Temperature 97.2 F L Pulse Rate 56 L 51 L 45 L Pulse Rate [ 49 L From Monitor] Respiratory 16 16 Rate Blood Pressure 123/57 123/57 123/62 O2 Sat by Pulse 99 100 Oximetry 01/28/19 01/28/19 01/28/19 01:01 01:31 02:01 Temperature Pulse Rate 49 L 76 68 Pulse Rate [ From Monitor] Respiratory 16 13 16 Rate Blood Pressure 126/67 140/68 134/74 O2 Sat by Pulse 97 97 97 Oximetry 05/07/19 05/07/19 05/07/19 02:31 03:01 03:15 Temperature Pulse Rate 56 L 52 L 52 L Pulse Rate [ From Monitor] Respiratory 16 16 Rate Blood Pressure 148/56 128/49 128/49 O2 Sat by Pulse 97 92 95 Oximetry 01/28/19 01/28/19 01/28/19 03:31 04:00 04:31 Temperature 98 F Pulse Rate 57 L 55 L 54 L Pulse Rate [ 52 L From Monitor] Respiratory 15 16 15 Rate Blood Pressure 142/70 138/75 143/70 O2 Sat by Pulse 91 97 95 Oximetry 01/28/19 01/28/19 01/28/19 05:00 05:31 06:01 Temperature Pulse Rate 71 64 58 L Pulse Rate [ From Monitor] Respiratory 17 16 16 Rate Blood Pressure 138/80 143/72 152/66 O2 Sat by Pulse 98 97 95 Oximetry 01/28/19 01/28/19 01/28/19 06:31 07:01 07:31 Temperature Pulse Rate 58 L 63 68 Pulse Rate [ From Monitor] Respiratory 15 16 17 Rate Blood Pressure 151/53 148/80 145/68 O2 Sat by Pulse 94 97 96 Oximetry 01/28/19 01/28/19 08:00 08:01 Temperature 98.4 F Pulse Rate 68 Pulse Rate [ 70 From Monitor] Respiratory 16 16 Rate Blood Pressure 156/84 O2 Sat by Pulse 98 99 Oximetry - General Appearance General appearance: well-developed, well-nourished, appears stated age, intubated EENT: PERRL, mucous membranes moist Neck: no JVD, no thyromegaly, no carotid bruit, supple Respiratory: Present: Clear to Ascultation Cardiology: regular, normal heart rate Gastrointestinal: normoactive bowel sounds, other (PEG tube in place) Integumentary: other (1+ edema) - Lab 01/27/19 04:38 01/27/19 04:38 Most recent lab results Calcium 8.5 mg/dL (8.4-10.2) 01/27/19 04:38 Phosphorus 5.90 mg/dL (2.5-4.5) H 01/20/19 Unknown Magnesium 1.80 mg/dL (1.7-2.3) 01/25/19 15:30 64 mmol/L 01/21/19 02:50 Medications & Allergies - Medications Allergies/Adverse Reactions: Allergies No Known Allergies Allergy (Verified 01/19/19 08:23) Home Medications: Home Medications Medication Instructions Recorded Confirmed Last Taken Type Baclofen [Lioresal] 20 mg PO TID 10/18/17 01/24/19 Unknown History Levothyroxine (Nf) [Synthroid (Nf)] 200 mcg NGTUBE QAM 10/18/17 01/24/19 Unknown History Liothyronine Sodium [Cytomel] 15 mcg NGTUBE QAM 10/18/17 01/24/19 10/30/17 History OXcarbazepine [Trileptal] 900 mg NGTUBE BID 10/18/17 01/24/19 Unknown History Valproic Acid (As Sodium Salt) 20 ml NGTUBE Q12H 10/18/17 01/24/19 Unknown History [Depakene] amLODIPine [Norvasc] 10 mg NGTUBE DAILY 10/18/17 01/24/19 Unknown History levETIRAcetam [Keppra TAB] 1,000 mg NGTUBE BID 10/18/17 01/24/19 Unknown History Insulin Aspart [NovoLOG Flexpen] See Protocol SQ Q6H 30 Days 10/26/17 01/24/19 Unknown Rx insuln.pen hydrALAZINE [Apresoline TAB] 25 mg PO Q8HR #90 tablet 10/26/17 01/24/19 Unknown Rx Polyethylene Glycol 3350 [Miralax 17 gm PO BID #30 packet 11/10/17 01/24/19 Unkn own Rx 3350] Insulin NPH/Regular [NovoLIN 70/30] 15 unit SQ BIDDIAB 01/24/19 01/24/19 Unknown History Active Medications: Generic Name Dose Route Start Last Admin Trade Name Freq PRN Reason Stop Dose Admin Acetaminophen 650 mg 01/21/19 02:23 01/21/19 03:59 Tylenol PO 650 mg Q6H PRN Administration Fever > 101 Amlodipine Besylate 10 mg 01/25/19 10:00 01/27/19 09:29 Norvasc PO 10 mg DAILY PRISCA Administration Dextrose 50 ml 01/19/19 16:42 01/27/19 22:54 D50w (25gm) Syringe IV 50 ml PRN PRN Administration Hypoglycemia Famotidine 20 mg 01/27/19 10:00 01/27/19 22:25 Pepcid PO 20 mg BID PRISCA Administration Hydralazine HCl 50 mg 01/26/19 15:00 01/28/19 07:26 Apresoline PO Not Given Q8HR PRISCA Hydrocortisone Sodium Succinate 150 mg 01/20/19 22:00 01/28/19 06:00 Solu-Cortef IV 150 mg Q8H PRISCA Administration Vancomycin HCl 1,500 mg/ 530 mls @ 333.333 mls/hr 01/23/19 10:00 01/27/19 10:10 Sodium Chloride IV 333.333 mls/hr Q24HR PRISCA Administration Meropenem 1,000 mg/ Sodium 100 mls @ 100 mls/hr 01/24/19 00:00 01/28/19 08:31 Chloride IV 100 mls/hr Q8H PRISCA Administration Protocol Insulin Human Isoph/Insulin Regular 15 unit 01/24/19 17:00 01/28/19 08:31 Humulin 70/30 SUB-Q 15 unit BIDDIAB PRISCA Administration Insulin Human Lispro 0 unit 01/19/19 18:00 01/28/19 06:00 Humalog SUB-Q Not Given Q6HR PENDING SALE TO [facility] Protocol Levetiracetam 1,000 mg 01/28/19 10:00 Keppra PO BID PRISCA Levothyroxine Sodium 200 mcg 01/25/19 06:00 01/28/19 06:00 Synthroid FEEDTUBE 200 mcg DAILY@0600 PRISCA Administration Metoprolol Tartrate 5 mg 01/22/19 14:00 01/28/19 06:00 Lopressor IV Not Given Q6HR PRISCA Oxcarbazepine 900 mg 01/24/19 22:00 01/27/19 22:24 Trileptal PO 900 mg BID PRISCA Administration Valproic Acid 1,000 mg 01/24/19 22:00 01/27/19 22:24 Depakene Liq FEEDTUBE 1,000 mg BID PRISCA Administration
[2019-01-28 09:01] VITALS: BP 162/72
[2019-01-28] MEDS: PEPCID PO SCH (09:08)
[2019-01-28] MEDS: DepaKENE Liq FEEDTUBE SCH (09:08)
[2019-01-28] MEDS: NORVASC PO SCH (09:08)
[2019-01-28] MEDS: TRILEPTAL PO SCH (09:09)
[2019-01-28] MEDS: VANCOMYCIN 1,500 MG in NACL 0.9% 500 ML 500 ML IV SCH (09:10)
--- NOTE | 2019-01-28 09:32 | Progress Note ---
Assessment and Plan 63 y/o male admitted with severe electrolyte imbalance, hypotension, hypothermia and bradycardia of unknown etiology. Transfer patient to hospice this am. Further care will be dictated by the inpatient hospice team. CCT 31 minutes. Subjective Date of service: 01/28/19 Principal diagnosis: hypoxic/hypercarbic respiratory failure Interval history: Patient's family decided on [facility] and patient is set to leave today around 10:00. Clinically unchanged. Objective Vital Signs - 12hr 01/27/19 01/27/19 01/27/19 21:31 22:01 22:31 Temperature Pulse Rate 64 58 L 58 L Pulse Rate [ From Monitor] Respiratory 17 16 16 Rate Blood Pressure 141/57 149/47 132/61 O2 Sat by Pulse 99 100 100 Oximetry 01/27/19 01/27/19 01/27/19 22:54 23:01 23:19 Temperature Pulse Rate 53 L 56 L 51 L Pulse Rate [ From Monitor] Respiratory 16 16 Rate Blood Pressure 132/61 132/63 132/63 O2 Sat by Pulse 100 100 Oximetry 01/27/19 01/27/19 01/28/19 23:31 23:39 00:00 Temperature 97.2 F L Pulse Rate 47 L 51 L 56 L Pulse Rate [ 49 L From Monitor] Respiratory 16 16 Rate Blood Pressure 111/56 111/56 123/57 O2 Sat by Pulse 100 99 99 Oximetry 01/28/19 01/28/19 01/28/19 00:20 00:31 01:01 Temperature Pulse Rate 51 L 45 L 49 L Pulse Rate [ From Monitor] Respiratory 16 16 Rate Blood Pressure 123/57 123/62 126/67 O2 Sat by Pulse 100 97 Oximetry 01/28/19 01/28/19 01/28/19 01:31 02:01 02:31 Temperature Pulse Rate 76 68 56 L Pulse Rate [ From Monitor] Respiratory 13 16 16 Rate Blood Pressure 140/68 134/74 148/56 O2 Sat by Pulse 97 97 97 Oximetry 01/28/19 01/28/19 01/28/19 03:01 03:15 03:31 Temperature Pulse Rate 52 L 52 L 57 L Pulse Rate [ From Monitor] Respiratory 16 15 Rate Blood Pressure 128/49 128/49 142/70 O2 Sat by Pulse 92 95 91 Oximetry 01/28/19 01/28/19 01/28/19 04:00 04:31 05:00 Temperature 98 F Pulse Rate 55 L 54 L 71 Pulse Rate [ 52 L From Monitor] Respiratory 16 15 17 Rate Blood Pressure 138/75 143/70 138/80 O2 Sat by Pulse 97 95 98 Oximetry 01/28/19 01/28/19 01/28/19 05:31 06:01 06:31 Temperature Pulse Rate 64 58 L 58 L Pulse Rate [ From Monitor] Respiratory 16 16 15 Rate Blood Pressure 143/72 152/66 151/53 O2 Sat by Pulse 97 95 94 Oximetry 01/28/19 01/28/19 01/28/19 07:01 07:31 08:00 Temperature 98.4 F Pulse Rate 63 68 Pulse Rate [ 70 From Monitor] Respiratory 16 17 16 Rate Blood Pressure 148/80 145/68 O2 Sat by Pulse 97 96 98 Oximetry 01/28/19 01/28/19 01/28/19 08:01 08:30 08:58 Temperature Pulse Rate 68 61 58 L Pulse Rate [ From Monitor] Respiratory 16 16 Rate Blood Pressure 156/84 156/84 162/72 O2 Sat by Pulse 99 100 100 Oximetry 01/28/19 01/28/19 09:01 09:08 Temperature Pulse Rate 69 63 Pulse Rate [ From Monitor] Respiratory 15 Rate Blood Pressure 162/72 162/72 O2 Sat by Pulse 100 Oximetry Constitutional: no acute distress, comatose, other (critically ill) Eyes: non-icteric ENT: other (on vent intubated AC/ PRVC r 16 fio2 45 p10 Ti 0.8 mv 9.45) Neck: no lymphadenopathy, no JVD, other (right IJ in place) Ascultation: Bilateral: diminished breath sounds, rales (sporadic) Cardiovascular: regular rate and rhythm Gastrointestinal: normoactive bowel sounds, other (distended) Extremities: other (right femoral line) Neurologic: unable to assess CBC and BMP: 01/27/19 04:38 01/27/19 04:38 ABG, PT/INR, D-dimer: ABG POC ABG pH 7.535 (7.35-7.45) H 01/26/19 05:43 POC ABG pCO2 35.2 (35-45) 01/26/19 05:43 POC ABG pO2 65 (80-105) L 01/26/19 05:43 POC ABG HCO3 29.8 (22-26 mml/L) 01/26/19 05:43 POC ABG Total CO2 31 (23-27mmol/L) 01/26/19 05:43 POC ABG O2 Sat 95 01/26/19 05:43 PT/INR, D-dimer PT 15.1 Sec. (12.2-14.9) H 01/19/19 Unknown INR 1.12 (0.87-1.13) 01/19/19 Unknown Abnormal lab findings: Abnormal Labs 01/19/19 01/19/19 01/19/19 07:46 07:46 07:46 WBC RBC Hgb Hct MCV MCH RDW Plt Count Seg Neuts % (Manual) Lymphocytes % (Manual) Monocytes % (Manual) Nucleated RBC % Seg Neutrophils # Man Lymphocytes # (Manual) Monocytes # (Manual) PT INR 0.86 L POC ABG pH POC ABG pCO2 POC ABG pO2 Sodium 114 L* Potassium 6.5 H* Chloride 77.4 L Carbon Dioxide BUN 33 H Creatinine Glucose 128 H POC Glucose Lactic Acid 2.50 H* Calcium Phosphorus Direct Bilirubin AST Total Creatine Kinase < 7 L Troponin T C-Reactive Protein NT-Pro-B Natriuret Pep Total Protein Albumin TSH Urine WBC (Auto) Miscellaneous Test Crossmatch 01/19/19 01/19/19 01/19/19 07:46 07:48 08:30 WBC 4.2 L RBC 3.07 L Hgb 10.1 L Hct 30.7 L MCV 100 H MCH 33 H RDW 17.4 H Plt Count Seg Neuts % (Manual) 72.0 H Lymphocytes % (Manual) 11.0 L Monocytes % (Manual) 13.0 H Nucleated RBC % 1.0 H Seg Neutrophils # Man Lymphocytes # (Manual) 0.5 L Monocytes # (Manual) PT INR POC ABG pH POC ABG pCO2 POC ABG pO2 Sodium Potassium Chloride Carbon Dioxide BUN Creatinine Glucose POC Glucose Lactic Acid Calcium Phosphorus Direct Bilirubin AST Total Creatine Kinase Troponin T C-Reactive Protein NT-Pro-B Natriuret Pep Total Protein Albumin TSH 8.530 H Urine WBC (Auto) > 182.0 H Miscellaneous Test Crossmatch 01/19/19 01/19/19 01/19/19 10:24 10:24 10:24 WBC RBC Hgb Hct MCV MCH RDW Plt Count Seg Neuts % (Manual) Lymphocytes % (Manual) Monocytes % (Manual) Nucleated RBC % Seg Neutrophils # Man Lymphocytes # (Manual) Monocytes # (Manual) PT INR POC ABG pH 7.305 L POC ABG pCO2 46.8 H POC ABG pO2 Sodium Potassium Chloride Carbon Dioxide BUN Creatinine Glucose POC Glucose Lactic Acid 3.20 H* Calcium Phosphorus Direct Bilirubin AST Total Creatine Kinase Troponin T 0.031 H D C-Reactive Protein NT-Pro-B Natriuret Pep Total Protein Albumin TSH Urine WBC (Auto) Miscellaneous Test Crossmatch 01/19/19 01/19/19 01/19/19 14:39 15:04 17:00 WBC RBC Hgb Hct MCV MCH RDW Plt Count Seg Neuts % (Manual) Lymphocytes % (Manual) Monocytes % (Manual) Nucleated RBC % Seg Neutrophils # Man Lymphocytes # (Manual) Monocytes # (Manual) PT INR POC ABG pH 7.320 L POC ABG pCO2 POC ABG pO2 58 L Sodium 116 L* 123 L D Potassium 5.7 H Chloride 82.9 L 89.8 L Carbon Dioxide 17 L BUN 31 H 28 H Creatinine Glucose 129 H 135 H POC Glucose Lactic Acid Calcium 8.1 L Phosphorus 4.80 H Direct Bilirubin AST Total Creatine Kinase Troponin T C-Reactive Protein NT-Pro-B Natriuret Pep Total Protein Albumin TSH Urine WBC (Auto) Miscellaneous Test Crossmatch 01/19/19 01/19/19 01/19/19 17:00 22:40 Unknown WBC RBC 3.05 L Hgb 10.0 L Hct 30.7 L MCV 101 H MCH 33 H RDW 16.7 H Plt Count Seg Neuts % (Manual) Lymphocytes % (Manual) Monocytes % (Manual) Nucleated RBC % Seg Neutrophils # Man Lymphocytes # (Manual) Monocytes # (Manual) PT 15.1 H INR POC ABG pH POC ABG pCO2 POC ABG pO2 Sodium 121 L Potassium 5.2 H Chloride 86.9 L Carbon Dioxide BUN 30 H Creatinine Glucose POC Glucose Lactic Acid Calcium Phosphorus 5.20 H Direct Bilirubin AST Total Creatine Kinase Troponin T C-Reactive Protein NT-Pro-B Natriuret Pep Total Protein Albumin TSH Urine WBC (Auto) Miscellaneous Test Crossmatch 01/20/19 01/20/19 01/20/19 04:20 16:00 17:39 WBC RBC Hgb Hct MCV MCH RDW Plt Count Seg Neuts % (Manual) Lymphocytes % (Manual) Monocytes % (Manual) Nucleated RBC % Seg Neutrophils # Man Lymphocytes # (Manual) Monocytes # (Manual) PT INR POC ABG pH POC ABG pCO2 POC ABG pO2 Sodium 120 L 119 L* Potassium 5.9 H 7.0 H* Chloride 87.0 L 85.7 L Carbon Dioxide 20 L 18 L BUN 31 H 35 H Creatinine 1.9 H Glucose 120 H POC Glucose 40 L Lactic Acid Calcium 8.1 L 8.0 L Phosphorus 5.10 H 5.80 H Direct Bilirubin AST Total Creatine Kinase Troponin T C-Reactive Protein NT-Pro-B Natriuret Pep Total Protein Albumin TSH Urine WBC (Auto) Miscellaneous Test Crossmatch 01/20/19 01/20/19 01/21/19 22:33 Unknown 00:18 WBC RBC Hgb Hct MCV MCH RDW Plt Count Seg Neuts % (Manual) Lymphocytes % (Manual) Monocytes % (Manual) Nucleated RBC % Seg Neutrophils # Man Lymphocytes # (Manual) Monocytes # (Manual) PT INR POC ABG pH POC ABG pCO2 POC ABG pO2 Sodium 125 L D 120 L Potassium 6.2 H* 6.2 H* Chloride 87.3 L 85.8 L Carbon Dioxide 17 L BUN 37 H 33 H Creatinine 1.9 H 1.6 H Glucose 71 L POC Glucose 152 H Lactic Acid Calcium 8.1 L Phosphorus 5.90 H Direct Bilirubin AST Total Creatine Kinase Troponin T C-Reactive Protein NT-Pro-B Natriuret Pep Total Protein Albumin TSH Urine WBC (Auto) Miscellaneous Test Crossmatch 01/21/19 01/21/19 01/21/19 02:45 02:45 02:45 WBC 18.8 H RBC 2.36 L Hgb 7.6 L Hct 25.1 L MCV 99 H MCH RDW 16.4 H Plt Count 97 L Seg Neuts % (Manual) 29.0 L Lymphocytes % (Manual) 4.0 L Monocytes % (Manual) Nucleated RBC % 5.0 H Seg Neutrophils # Man Lymphocytes # (Manual) 0.8 L Monocytes # (Manual) PT INR POC ABG pH POC ABG pCO2 POC ABG pO2 Sodium 125 L Potassium 5.8 H Chloride 86.9 L Carbon Dioxide BUN 35 H Creatinine 1.9 H Glucose 119 H POC Glucose Lactic Acid Calcium Phosphorus Direct Bilirubin 0.3 H AST 59 H Total Creatine Kinase Troponin T C-Reactive Protein NT-Pro-B Natriuret Pep Total Protein 5.7 L Albumin 3.1 L TSH Urine WBC (Auto) Miscellaneous Test Crossmatch 01/21/19 01/21/19 01/21/19 05:26 05:42 06:41 WBC RBC Hgb Hct MCV MCH RDW Plt Count Seg Neuts % (Manual) Lymphocytes % (Manual) Monocytes % (Manual) Nucleated RBC % Seg Neutrophils # Man Lymphocytes # (Manual) Monocytes # (Manual) PT INR POC ABG pH 7.274 L POC ABG pCO2 58.6 H POC ABG pO2 77 L Sodium Potassium Chloride Carbon Dioxide BUN Creatinine Glucose POC Glucose 182 H Lactic Acid Calcium Phosphorus Direct Bilirubin AST Total Creatine Kinase Troponin T C-Reactive Protein NT-Pro-B Natriuret Pep Total Protein Albumin TSH Urine WBC (Auto) Miscellaneous Test Crossmatch 01/21/19 01/21/19 01/21/19 12:09 12:41 17:44 WBC RBC Hgb Hct MCV MCH RDW Plt Count Seg Neuts % (Manual) Lymphocytes % (Manual) Monocytes % (Manual) Nucleated RBC % Seg Neutrophils # Man Lymphocytes # (Manual) Monocytes # (Manual) PT INR POC ABG pH POC ABG pCO2 POC ABG pO2 Sodium Potassium Chloride Carbon Dioxide BUN Creatinine Glucose POC Glucose 129 H 174 H Lactic Acid Calcium Phosphorus Direct Bilirubin AST Total Creatine Kinase Troponin T C-Reactive Protein NT-Pro-B Natriuret Pep Total Protein Albumin TSH Urine WBC (Auto) Miscellaneous Test Crossmatch See Detail 01/21/19 01/21/19 01/22/19 20:00 23:47 04:17 WBC 34.5 H RBC 2.34 L Hgb 7.5 L Hct 22.7 L MCV 97 H MCH RDW 16.0 H Plt Count 36 L Seg Neuts % (Manual) 77.0 H Lymphocytes % (Manual) 1.0 L Monocytes % (Manual) Nucleated RBC % 1.0 H Seg Neutrophils # Man 26.6 H Lymphocytes # (Manual) 0.3 L Monocytes # (Manual) 1.4 H PT INR POC ABG pH POC ABG pCO2 POC ABG pO2 Sodium 131 L Potassium 3.5 L D Chloride 88.6 L Carbon Dioxide BUN 32 H Creatinine Glucose 117 H POC Glucose 110 H Lactic Acid Calcium Phosphorus Direct Bilirubin AST Total Creatine Kinase Troponin T C-Reactive Protein NT-Pro-B Natriuret Pep Total Protein Albumin TSH Urine WBC (Auto) Miscellaneous Test Crossmatch 01/22/19 01/22/19 01/22/19 04:17 04:45 05:16 WBC RBC Hgb Hct MCV MCH RDW Plt Count Seg Neuts % (Manual) Lymphocytes % (Manual) Monocytes % (Manual) Nucleated RBC % Seg Neutrophils # Man Lymphocytes # (Manual) Monocytes # (Manual) PT INR POC ABG pH 7.492 H POC ABG pCO2 POC ABG pO2 64 L Sodium 131 L Potassium 2.9 L* Chloride 89.8 L Carbon Dioxide BUN 30 H Creatinine Glucose POC Glucose 116 H Lactic Acid Calcium Phosphorus Direct Bilirubin AST Total Creatine Kinase Troponin T C-Reactive Protein NT-Pro-B Natriuret Pep Total Protein Albumin TSH Urine WBC (Auto) Miscellaneous Test Crossmatch 01/22/19 01/22/19 01/22/19 11:01 11:34 12:01 WBC RBC Hgb Hct MCV MCH RDW Plt Count Seg Neuts % (Manual) Lymphocytes % (Manual) Monocytes % (Manual) Nucleated RBC % Seg Neutrophils # Man Lymphocytes # (Manual) Monocytes # (Manual) PT INR POC ABG pH POC ABG pCO2 POC ABG pO2 Sodium Potassium Chloride Carbon Dioxide BUN Creatinine Glucose POC Glucose 119 H Lactic Acid Calcium Phosphorus Direct Bilirubin AST Total Creatine Kinase Troponin T C-Reactive Protein 24.80 H NT-Pro-B Natriuret Pep Total Protein Albumin TSH Urine WBC (Auto) Miscellaneous Test Flexitest 1 H Crossmatch 01/22/19 01/22/19 01/23/19 16:50 23:38 04:25 WBC 26.4 H RBC 2.44 L Hgb 7.8 L Hct 23.7 L MCV 97 H MCH RDW 16.2 H Plt Count 22 L Seg Neuts % (Manual) Lymphocytes % (Manual) 1.0 L Monocytes % (Manual) Nucleated RBC % 11.0 H Seg Neutrophils # Man 0.0 L Lymphocytes # (Manual) 0.0 L Monocytes # (Manual) PT INR POC ABG pH POC ABG pCO2 POC ABG pO2 Sodium 132 L Potassium 2.8 L* Chloride 92.4 L Carbon Dioxide BUN 29 H Creatinine Glucose POC Glucose 111 H Lactic Acid Calcium Phosphorus Direct Bilirubin AST Total Creatine Kinase Troponin T C-Reactive Protein NT-Pro-B Natriuret Pep Total Protein Albumin TSH Urine WBC (Auto) Miscellaneous Test Crossmatch 01/23/19 01/23/19 01/23/19 04:55 05:42 08:39 WBC RBC Hgb Hct MCV MCH RDW Plt Count Seg Neuts % (Manual) Lymphocytes % (Manual) Monocytes % (Manual) Nucleated RBC % Seg Neutrophils # Man Lymphocytes # (Manual) Monocytes # (Manual) PT INR POC ABG pH 7.488 H POC ABG pCO2 POC ABG pO2 55 L Sodium 136 L Potassium 3.1 L Chloride 94.5 L Carbon Dioxide BUN 36 H Creatinine Glucose POC Glucose 107 H Lactic Acid Calcium Phosphorus Direct Bilirubin AST Total Creatine Kinase Troponin T C-Reactive Protein NT-Pro-B Natriuret Pep Total Protein Albumin TSH Urine WBC (Auto) Miscellaneous Test Crossmatch 01/23/19 01/23/19 01/23/19 12:08 16:54 18:06 WBC RBC Hgb Hct MCV MCH RDW Plt Count Seg Neuts % (Manual) Lymphocytes % (Manual) Monocytes % (Manual) Nucleated RBC % Seg Neutrophils # Man Lymphocytes # (Manual) Monocytes # (Manual) PT INR POC ABG pH POC ABG pCO2 POC ABG pO2 Sodium Potassium 3.2 L Chloride 96.9 L Carbon Dioxide BUN 39 H Creatinine Glucose 109 H POC Glucose 108 H 115 H Lactic Acid Calcium Phosphorus Direct Bilirubin AST Total Creatine Kinase Troponin T C-Reactive Protein NT-Pro-B Natriuret Pep Total Protein Albumin TSH Urine WBC (Auto) Miscellaneous Test Crossmatch 01/24/19 01/24/19 01/24/19 00:44 03:47 05:38 WBC RBC Hgb Hct MCV MCH RDW Plt Count Seg Neuts % (Manual) Lymphocytes % (Manual) Monocytes % (Manual) Nucleated RBC % Seg Neutrophils # Man Lymphocytes # (Manual) Monocytes # (Manual) PT INR POC ABG pH 7.504 H POC ABG pCO2 34.9 L POC ABG pO2 62 L Sodium Potassium Chloride Carbon Dioxide BUN Creatinine Glucose POC Glucose 137 H 120 H Lactic Acid Calcium Phosphorus Direct Bilirubin AST Total Creatine Kinase Troponin T C-Reactive Protein NT-Pro-B Natriuret Pep Total Protein Albumin TSH Urine WBC (Auto) Miscellaneous Test Crossmatch 01/24/19 01/24/19 01/24/19 07:48 11:43 17:49 WBC RBC Hgb Hct MCV MCH RDW Plt Count Seg Neuts % (Manual) Lymphocytes % (Manual) Monocytes % (Manual) Nucleated RBC % Seg Neutrophils # Man Lymphocytes # (Manual) Monocytes # (Manual) PT INR POC ABG pH POC ABG pCO2 POC ABG pO2 Sodium Potassium Chloride Carbon Dioxide BUN Creatinine Glucose POC Glucose 112 H 126 H 149 H Lactic Acid Calcium Phosphorus Direct Bilirubin AST Total Creatine Kinase Troponin T C-Reactive Protein NT-Pro-B Natriuret Pep Total Protein Albumin TSH Urine WBC (Auto) Miscellaneous Test Crossmatch 01/24/19 01/25/19 01/25/19 23:35 03:52 05:15 WBC RBC Hgb Hct MCV MCH RDW Plt Count Seg Neuts % (Manual) Lymphocytes % (Manual) Monocytes % (Manual) Nucleated RBC % Seg Neutrophils # Man Lymphocytes # (Manual) Monocytes # (Manual) PT INR POC ABG pH 7.479 H POC ABG pCO2 POC ABG pO2 Sodium Potassium Chloride Carbon Dioxide BUN Creatinine Glucose POC Glucose 128 H 126 H Lactic Acid Calcium Phosphorus Direct Bilirubin AST Total Creatine Kinase Troponin T C-Reactive Protein NT-Pro-B Natriuret Pep Total Protein Albumin TSH Urine WBC (Auto) Miscellaneous Test Crossmatch 01/25/19 01/25/19 01/25/19 09:50 14:17 15:30 WBC RBC Hgb Hct MCV MCH RDW Plt Count Seg Neuts % (Manual) Lymphocytes % (Manual) Monocytes % (Manual) Nucleated RBC % Seg Neutrophils # Man Lymphocytes # (Manual) Monocytes # (Manual) PT INR POC ABG pH POC ABG pCO2 POC ABG pO2 Sodium Potassium 3.2 L Chloride Carbon Dioxide BUN 41 H Creatinine Glucose 123 H POC Glucose 151 H 132 H Lactic Acid Calcium 8.2 L Phosphorus Direct Bilirubin AST Total Creatine Kinase Troponin T C-Reactive Protein NT-Pro-B Natriuret Pep Total Protein Albumin TSH Urine WBC (Auto) Miscellaneous Test Crossmatch 01/25/19 01/26/19 01/26/19 17:40 04:45 04:45 WBC RBC 2.82 L Hgb 9.2 L Hct 27.7 L MCV 98 H MCH 33 H RDW 16.4 H Plt Count 46 L Seg Neuts % (Manual) Lymphocytes % (Manual) Monocytes % (Manual) Nucleated RBC % Seg Neutrophils # Man Lymphocytes # (Manual) Monocytes # (Manual) PT INR POC ABG pH POC ABG pCO2 POC ABG pO2 Sodium Potassium Chloride Carbon Dioxide BUN 40 H Creatinine Glucose POC Glucose 114 H Lactic Acid Calcium Phosphorus Direct Bilirubin AST Total Creatine Kinase Troponin T C-Reactive Protein NT-Pro-B Natriuret Pep Total Protein Albumin TSH Urine WBC (Auto) Miscellaneous Test Crossmatch 01/26/19 01/26/19 01/27/19 05:43 12:54 00:22 WBC RBC Hgb Hct MCV MCH RDW Plt Count Seg Neuts % (Manual) Lymphocytes % (Manual) Monocytes % (Manual) Nucleated RBC % Seg Neutrophils # Man Lymphocytes # (Manual) Monocytes # (Manual) PT INR POC ABG pH 7.535 H POC ABG pCO2 POC ABG pO2 65 L Sodium Potassium Chloride Carbon Dioxide BUN Creatinine Glucose POC Glucose 150 H 156 H Lactic Acid Calcium Phosphorus Direct Bilirubin AST Total Creatine Kinase Troponin T C-Reactive Protein NT-Pro-B Natriuret Pep Total Protein Albumin TSH Urine WBC (Auto) Miscellaneous Test Crossmatch 01/27/19 01/27/19 01/27/19 04:38 04:38 05:52 WBC RBC 3.10 L Hgb 10.3 L Hct 30.7 L MCV 99 H MCH 33 H RDW 16.4 H Plt Count 57 L Seg Neuts % (Manual) Lymphocytes % (Manual) Monocytes % (Manual) Nucleated RBC % Seg Neutrophils # Man Lymphocytes # (Manual) Monocytes # (Manual) PT INR POC ABG pH POC ABG pCO2 POC ABG pO2 Sodium Potassium 3.2 L D Chloride Carbon Dioxide BUN 33 H Creatinine Glucose 107 H POC Glucose 131 H Lactic Acid Calcium Phosphorus Direct Bilirubin AST Total Creatine Kinase Troponin T C-Reactive Protein NT-Pro-B Natriuret Pep 27174 H Total Protein Albumin TSH Urine WBC (Auto) Miscellaneous Test Crossmatch 01/27/19 01/27/19 01/28/19 12:24 22:22 05:23 WBC RBC Hgb Hct MCV MCH RDW Plt Count Seg Neuts % (Manual) Lymphocytes % (Manual) Monocytes % (Manual) Nucleated RBC % Seg Neutrophils # Man Lymphocytes # (Manual) Monocytes # (Manual) PT INR POC ABG pH POC ABG pCO2 POC ABG pO2 Sodium Potassium Chloride Carbon Dioxide BUN Creatinine Glucose POC Glucose 151 H 65 L 113 H Lactic Acid Calcium Phosphorus Direct Bilirubin AST Total Creatine Kinase Troponin T C-Reactive Protein NT-Pro-B Natriuret Pep Total Protein Albumin TSH Urine WBC (Auto) Miscellaneous Test Crossmatch
[2019-01-28] MEDS ORDERED: BUMEX IV ONE (10:00)
[2019-01-28] MEDS ORDERED: KEPPRA PO SCH (10:00)
--- NOTE | 2019-01-28 11:06 | Progress Note ---
Assessment and Plan Cultures: Blood culture 01/19/2019 Enterococcus faecalis 2 of 4 bottles and MDR Pseudomonas 1 of 4 bottles Urine culture 01/19/2019 Klebsiella. 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 Per , he is contracted and non verbal at baseline but then she noted cold temperature, worsening sleepiness and wheezing for 2-3 days: 1) Shock likely mixed cardiogenic due to symptomatic bradycardia +/- ?mixedema coma +/- septic: Improved. Septic etiology most likely Enterococcus bacteremia +/- Klebsiella UTI +/- pneumonia. CRP 24. Procalcitonin 129.30 2) Enterococcus and MDR Pseudomonas bacteremia: unclear source, ?lung; TTE no vegetations. 3) Klebsiella UTI: UA 185 wbc, LE moderate. Urine culture 01/19/2019 Klebsiella 4) Pneumonia: likely aspiration pneumonia. Sputum, MDR Pseudomonas . CXR showed extensive airspace disease in right lung and in left perihilar region, new in comparison to prior examination. 5) Acute on chronic encephalopathy: multifactorial from hyponatremia, symptomatic bradycardia and sepsis 6) Uncontrolled hypothyroidism Recommendations: - remove right femoral TLC jose - contact isolation due to MDR Pseudomonas - continue meropenem, D5 - continue vancomycin D6 Anticipate discharge on Vancomycin 1.5 g IV q day and meropenem 1 gm iv every 8 hours until 02/04/19 -Order placed with case management -follow-up repeat blood cultures -f/u repeat Procalcitonin [facility] M: [phone] O:[phone] Subjective Date of service: 01/28/19 Principal diagnosis: hypoxic/hypercarbic respiratory failure Objective - Constitutional Vitals: Vital Signs Temp Pulse Resp BP Pulse Ox 98.4 F 63 15 162/72 100 01/28/19 08:00 01/28/19 09:08 01/28/19 09:01 01/28/19 09:08 01/28/19 09:01 Temperature -Last 24 Hours Temperature 98.4 F Temperature 98.4 F Temperature 98 F Temperature 97.2 F Temperature 97.6 F Temperature 97.8 F Temperature 97.5 F - Labs CBC & Chem 7: 01/27/19 04:38 01/27/19 04:38 Labs: Abnormal lab results 01/27/19 01/27/19 01/28/19 Range/Units 12:24 22:22 05:23 POC Glucose 151 H 65 L 113 H (70-105)
== END 2019-01-28 11:10 | disposition hospice, inpatient (51) | DRG 870 ==
LOC: ED 07:28 → CC1 11:26
PROVIDERS: ADMIT Internal Medicine; ATTEND Internal Medicine
PROC: 5A1955Z Respiratory Ventilation, Greater than 96 Consecutive Hours (ICD-10-PCS; principal; 2019-01-19)
PROC: 0BH17EZ Insertion of Endotracheal Airway into Trachea, Via Natural or Artificial Opening (ICD-10-PCS; 2019-01-19)
PROC: 4A033R1 Measurement of Arterial Saturation, Peripheral, Percutaneous Approach (ICD-10-PCS; 2019-01-19)
PROC: 06HM33Z Insertion of Infusion Device into Right Femoral Vein, Percutaneous Approach (ICD-10-PCS; 2019-01-19)
PROC: 30233N1 Transfusion of Nonautologous Red Blood Cells into Peripheral Vein, Percutaneous Approach (ICD-10-PCS; 2019-01-21)
PROC: 05HY33Z Insertion of Infusion Device into Upper Vein, Percutaneous Approach (ICD-10-PCS; 2019-01-27)
DX: A41.9 Sepsis, unspecified organism (principal); R65.21 Severe sepsis with septic shock; D65 Disseminated intravascular coagulation [defibrination syndrome]; G93.41 Metabolic encephalopathy; J96.01 Acute respiratory failure with hypoxia; J96.02 Acute respiratory failure with hypercapnia; N17.0 Acute kidney failure with tubular necrosis; E87.1 Hypo-osmolality and hyponatremia; I69.351 Hemiplegia and hemiparesis following cerebral infarction affecting right dominant side; N39.0 Urinary tract infection, site not specified; D62 Acute posthemorrhagic anemia; E11.9 Type 2 diabetes mellitus without complications; I10 Essential (primary) hypertension; E03.9 Hypothyroidism, unspecified; G40.909 Epilepsy, unspecified, not intractable, without status epilepticus; R13.10 Dysphagia, unspecified; L89.159 Pressure ulcer of sacral region, unspecified stage; E87.5 Hyperkalemia; E86.0 Dehydration; E83.39 Other disorders of phosphorus metabolism; B96.1 Klebsiella pneumoniae [K. pneumoniae] as the cause of diseases classified elsewhere; N28.1 Cyst of kidney, acquired; Z79.4 Long term (current) use of insulin; Z79.899 Other long term (current) drug therapy; Z93.1 Gastrostomy status
CPT/HCPCS: 36415; 36600; 70450; 71045; 76770; 80048; 80061; 80076; 80202; 81001; 82140; 82550; 82803; 82962; 83735; 83880; 83930; 83935; 84100; 84133; 84300; 84439; 84443; 84484; 84550; 85007; 85025; 85027; 85610; 85730; 86140; 86850; 86900; 86901; 86920; 87040; 87070; 87076; 87086; 87186; 87205; 93005; 93010; 93306; 94002; 94003; 94640; 96365; 96375; 99291; G0378; J0171; J0461; J0696; J1265; J1720; J1815; J1940; J1953; J2001; J2060; J2185; J2250; J2405; J2543; J3370; J3480; J7030; J7040; J7042; J7050; J7070; J7120; P9016; P9047